=== PATIENT | male | born 1950 | race Caucasian/White ===

== ENCOUNTER 2019-02-18 15:39 | Emergency (ER) | payer MEDICARE ==
[2019-02-18 16:09] VITALS: O2SAT 98
--- NOTE | 2019-02-18 16:44 | ERPHSYRPT ---
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 pt noticed increasing redness of his bilat lower ext over last 2 days. he denies fevers. Timing/Duration: day(s) (2 days for bilat ant tibial redness), week(s) (4 for swelling) Quality: burning Severity: mild Location: extremities (bilat lower) Possible Causes: other (dry cracking skin) Associated Symptoms: change in skin texture, other (redness) Allergies/Adverse Reactions: Penicillins Adverse Reaction (Verified 02/18/19 16:11) Home Medications: Aspirin EC 325 mg [Ecotrin 325 MG] 325 mg PO DAILY 02/18/19 [History] Metoprolol Tartrate 50 mg [Lopressor 50 MG] 50 mg PO BID 02/18/19 [History ] PANTOPRAZOLE 40 mg Tablet [Protonix 40MG Tablet] 40 mg PO QAM 02/18/19 [ History] Hx Influenza Vaccination/Date Given: No Hx Pneumococcal Vaccination/Date Given: No - Review of Systems Constitutional: No Symptoms Eyes: No Symptoms Ears, Nose, & Throat: No Symptoms Respiratory: No Symptoms Cardiac: No Symptoms Abdominal/Gastrointestinal: No Symptoms Genitourinary Symptoms: No Symptoms Musculoskeletal: No Symptoms Skin: Cellulitis ( bilat lower ext ) Neurological: No Symptoms Psychological: No Symptoms Endocrine: No Symptoms Hematologic/Lymphatic: No Symptoms Immunological/Allergic: No Symptoms All Other Systems: Reviewed and Negative - Past Medical History Pertinent Past Medical History: Yes Neurological History: No Pertinent History ENT History: No Pertinent History Cardiac History: Hypertension Respiratory History: No Pertinent History Endocrine Medical History: No Pertinent History Musculoskeletal History: No Pertinent History GI Medical History: No Pertinent History History: No Pertinent History Psycho-Social History: No Pertinent History Male Reproductive Disorders: No Pertinent History Other Medical History: [place], Stent x 2 in right le and 1 in left femoral artery - Past Surgical History Past Surgical History: Yes Neuro Surgical History: No Pertinent History Cardiac: Vascular Surgery Respiratory: No Pertinent History Gastrointestinal: No Pertinent History Genitourinary: No Pertinent History Musculoskeletal: No Pertinent History Male Surgical History: No Pertinent History Other Surgical History: stent to tono femoral artery, caroditectomy - Social History Smoking Status: Current every day smoker Patient Lives Alone: No - Nursing Vital Signs Nursing Vital Signs: Initial Vital Signs Temperature 98.5 F 02/18/19 15:56 Pulse Rate 72 02/18/19 15:56 Respiratory Rate 18 02/18/19 15:56 Blood Pressure 212/104 02/18/19 15:56 O2 Sat by Pulse Oximetry 98 02/18/19 15:56 Pain Scale Pain Intensity 4 - Physical Exam General Appearance: no apparent distress, alert, anxiety Eye Exam: PERRL/EOMI, eyes nml inspection Ears, Nose, Throat Exam: normal ENT inspection, moist mucous membranes Neck Exam: normal inspection, non-tender, supple, full range of motion Respiratory Exam: normal breath sounds, lungs clear, airway intact, No chest tenderness, No respiratory distress Cardiovascular Exam: regular rate/rhythm, normal heart sounds, normal peripheral pulses Gastrointestinal/Abdomen Exam: soft, normal bowel sounds, No tenderness, No guarding Rectal Exam: not done Back Exam: normal inspection, normal range of motion, No CVA tenderness, No vertebral tenderness Extremity Exam: normal inspection, normal range of motion, pelvis stable Neurologic Exam: alert, oriented x 3, cooperative, 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 dry cracking skin bilat lower extremities. dopplerable pedal pulses bilat) Lymphatic Exam: No adenopathy SpO2 Interpretation: normal SpO2: 98 O2 Delivery: Room Air - Course Nursing assessment & vital signs reviewed: Yes Ordered Tests: Active Orders 24 hr Category Date Time Status IV Insertion STAT Care 02/18/19 16:44 Active Pulse Oximetry (ED) STAT Care 02/18/19 16:44 Active BLOOD CULTURE Stat Lab 02/18/19 17:05 Received CBC W DIFF Stat Lab 02/18/19 16:40 Completed CMP Stat Lab 02/18/19 16:40 Completed Lactic Acid Stat Lab 02/18/19 16:44 Completed Medication Summary Discontinued Medications Generic Name Dose Route Start Last Admin Trade Name Rika PRN Reason Stop Dose Admin Furosemide 40 mg 02/18/19 18:18 Lasix 40 Mg/4 Ml IV 02/18/19 18:19 STAT ONE Lab/Rad Data: Laboratory Result [facility] 02/18/19 16:40 02/18/19 16:40 Laboratory Results 02/18/19 02/18/19 02/18/19 Range/Units 16:44 16:40 16:40 WBC 5.9 (4.0-10.5) K/mm3 RBC 4.24 (4.1-5.6) M/mm3 Hgb 13.3 (12.5-18.0) gm/dl Hct 40.6 L (42-50) % MCV 95.8 (78-100) fl MCH 31.4 (26-32) pg MCHC 32.8 (32-36) g/dl RDW 14.1 H (11.5-14.0) % Plt Count 127 L (150-450) K/mm3 MPV 11.0 H (6-9.5) fl Gran % 79.4 H (36.0-66.0) % Eos # (Auto) 0.11 (0-0.5) Absolute Lymphs (auto) 0.70 L (1.0-4.6) Absolute Monos (auto) 0.39 (0.0-1.3) Lymphocytes % 11.9 L (24.0-44.0) % Monocytes % 6.6 (0.0-12.0) % Eosinophils % 1.9 (0.00-5.0) % Basophils % 0.2 (0.0-0.4) % Absolute Granulocytes 4.69 (1.4-6.9) Basophils # 0.01 (0-0.4) Sodium 141 (137-145) mmol/L Potassium 4.0 (3.5-5.1) mmol/L Chloride 105 (98-107) mmol/L Carbon Dioxide 24 (22-30) mmol/L Anion Gap 15.7 H (5-15) MEQ/L BUN 12 (9-20) mg/dL Creatinine 1.12 (0.66-1.25) mg/dL Estimated GFR > 60.0 ML/MIN Glucose 155 H (74-106) mg/dL Lactic Acid 1.3 (0.4-2.0) Calcium 8.5 (8.4-10.2) mg/dL Total Bilirubin 1.60 H (0.2-1.3) mg/dL AST 50 (17-59) U/L ALT 44 (0-50) U/L Alkaline Phosphatase 41 (38-126) U/L Serum Total Protein 8.5 H (6.3-8.2) g/dL Albumin 4.0 (3.5-5.0) g/dL - Progress Progress: unchanged Progress Note: 02/18/19 18:43 pt wants to attempt outpt tx. given pt is afebrile, nl wbc, nl lactic acid level i feel this is reasonable. Counseled pt/family regarding: lab results, diagnosis, need for follow-up - Departure Departure Disposition: Home Clinical Impression: Cellulitis Condition: Stable Critical Care Time: No Referrals: JESSEE MONTANEZ [Primary Care Provider] - Additional Instructions: use unscented moisturizing skin lotion to both lower legs from above knee to toes. avoid sores on anterior lower legs. call your primary doctor tomorrow to arrange for further management. return to ED if symptoms Prescriptions: Ciprofloxacin [Cipro 500 MG] 500 mg PO BID #14 tablet Furosemide 20 mg [Lasix 20 mg] 20 mg PO BID #6 tablet
[2019-02-18 17:14] LABS: Absolute Neutrophil Ct (ANC) 4.69 (1.4-6.9); BASOPHIL % 0.2 % (0.0-0.4); Basophil (Absolute #) 0.01 (0-0.4); Eosinophil % 1.9 % (0.00-5.0); Eosinophil (Absolute #) 0.11 (0-0.5); Hematocrit 40.6 % (42-50); Hemoglobin 13.3 gm/dl (12.5-18.0); Lymphocytes % 11.9 % (24.0-44.0); Mean Cell Volume 95.8 fl (78-100); Mean Corpuscular Hemoglobin 31.4 pg (26-32); Mean Corpuscular Hgb Concent. 32.8 g/dl (32-36); Monocyte (Absolute #) 0.39 (0.0-1.3); Monocytes % 6.6 % (0.0-12.0); Neutrophil % 79.4 % (36.0-66.0); Platelet Count 127 K/mm3 (150-450); Red Blood Count 4.24 M/mm3 (4.1-5.6); Red Cell Distribution Width 14.1 % (11.5-14.0); White Blood Count 5.9 K/mm3 (4.0-10.5)
[2019-02-18 17:25] LABS: BLOOD UREA NITROGEN 12 mg/dL (9-20); Creatinine 1 1.12 mg/dL (0.66-1.25); Glucose 155 mg/dL (74-106); SODIUM 141 mmol/L (137-145)
[2019-02-18 17:26] LABS: ALKALINE PHOSPHATASE 41 U/L (38-126); ANION GAP 15.7 MEQ/L (5-15); CHLORIDE 105 mmol/L (98-107); Calcium 8.5 mg/dL (8.4-10.2); Carbon Dioxide 24 mmol/L (22-30); SGOT/AST 50 U/L (17-59); SGPT/ALT 44 U/L (0-50); Total Protein 8.5 g/dL (6.3-8.2)
[2019-02-18] MEDS ORDERED: Lasix 40 MG/4 ML IV ONE (18:18)
[2019-02-18] MEDS ORDERED: LEVOFLOXACIN 750MG/150ML D5W 750 MG/150 ML BAG IV STA (18:31)
[2019-02-18] MEDS ORDERED: LEVOFLOXACIN 750MG/150ML D5W 750 MG/150 ML BAG IV ONE (18:47)
[2019-02-18] MEDS ORDERED: Lasix 40 MG/4 ML ONE (18:47)
[2019-02-18] MEDS ORDERED: Catapres 0.1 MG ONE (20:03)
[2019-02-18] MEDS ORDERED: Catapres 0.1 MG PO ONE (20:05)
[2019-02-18 20:11] VITALS: PULSE 69
[2019-02-18 21:10] VITALS: BP 177/79
== END 2019-02-18 21:13 | disposition home or self-care (01) ==
LOC: ED 15:39
DX: L03.115 Cellulitis of right lower limb (principal); L03.116 Cellulitis of left lower limb; I10 Essential (primary) hypertension; Z79.899 Other long term (current) drug therapy
CPT/HCPCS: 36000; 36415; 80053; 83605; 85025; 87040; 94760; 96365; 96374; 99284; J1940; J1956; A9270-GY

== ENCOUNTER 2019-03-10 14:23 | Inpatient (IN) | payer MEDICARE ==
[2019-03-10] MEDS ORDERED: Zofran 4 MG/2 ML VIAL IV ONE (15:05)
--- NOTE | 2019-03-10 15:05 | ERPHSYRPT ---
- History of Present Illness Time Seen by Provider: 03/10/19 14:45 Source: patient Exam Limitations: no limitations Patient Subjective Stated Complaint: pt reports he was seen one week ago and treated for sores on his bilat lower legs at this facility. pt reports that his swelling has increased, reports that his legs are both draining. pt denies pain at this time. pt brother outside of the room, reports to this nurse after triage that pt has complained of chest pain as well today. Triage Nursing Assessment: pt is aox3, pupils perrl, afebrile, pt appears in no distress at this time, resps easy and non labored, radial pulses strong and equal, pt bilat lower extremities are noted to be reddned large open areas to bilat extremities dorsal and volar aspects with yellow colored crusts are present and actively draining. a strong, foul odor noted. poor hygeine noted, pt socks present upon arrival which were soiled with drainage and adhered to pt skin. Physician History: 68 y/o noncompliant white male with h/o htn and chronic bilateral lower ext cellulitis/eschar. pt took his 325mg asa and metoprolol today. he states his cellulitis worse. pt was seen here 02/18/19 for same issue. pt had cp yesterday he attributes to indigestion and no cp today. pt denies fever. Timing/Duration: worse, other (chronic for several weeks bilat leg cellulitis and eschar.) Quality: burning Severity: moderate Location: extremities (bilat lower legs) Possible Causes: no cause identified Associated Symptoms: change in skin texture Allergies/Adverse Reactions: Penicillins Adverse Reaction (Verified 02/18/19 16:11) Home Medications: Aspirin EC 325 mg [Ecotrin 325 MG] 325 mg PO DAILY 02/18/19 [History] Metoprolol Tartrate 50 mg [Lopressor 50 MG] 50 mg PO BID 02/18/19 [History ] PANTOPRAZOLE 40 mg Tablet [Protonix 40MG Tablet] 40 mg PO QAM 02/18/19 [ History] Hx Tetanus, Diphtheria Vaccination/Date Given: (unk) Hx Influenza Vaccination/Date Given: No Hx Pneumococcal Vaccination/Date Given: No Immunizations Up to Date: Yes - Review of Systems Constitutional: No Symptoms Eyes: No Symptoms Ears, Nose, & Throat: No Symptoms Respiratory: No Symptoms Cardiac: Chest Pain (mild yesterday, brief and resolved) Abdominal/Gastrointestinal: No Symptoms Genitourinary Symptoms: No Symptoms Musculoskeletal: No Symptoms Skin: Cellulitis ( with bilat ant tibial post lower leg eschar. very dry cracking skin of lower legs) Neurological: No Symptoms Psychological: No Symptoms Endocrine: No Symptoms Hematologic/Lymphatic: No Symptoms Immunological/Allergic: No Symptoms All Other Systems: Reviewed and Negative - Past Medical History Pertinent Past Medical History: Yes Neurological History: No Pertinent History ENT History: No Pertinent History Cardiac History: Hypertension Respiratory History: No Pertinent History Endocrine Medical History: No Pertinent History Musculoskeletal History: No Pertinent History GI Medical History: No Pertinent History History: No Pertinent History Psycho-Social History: No Pertinent History Male Reproductive Disorders: No Pertinent History Other Medical History: [place], Stent x 2 in right le and 1 in left femoral artery - Past Surgical History Past Surgical History: Yes Neuro Surgical History: No Pertinent History Cardiac: Vascular Surgery Respiratory: No Pertinent History Gastrointestinal: No Pertinent History Genitourinary: No Pertinent History Musculoskeletal: No Pertinent History Male Surgical History: No Pertinent History Other Surgical History: stent to tono femoral artery, caroditectomy - Social History Smoking Status: Current every day smoker How long have you smoked: 40 Drug Use: none Patient Lives Alone: No - Nursing Vital Signs Nursing Vital Signs: Initial Vital Signs Temperature 98.3 F 03/10/19 14:30 Pulse Rate 71 03/10/19 14:30 Respiratory Rate 20 03/10/19 14:30 Blood Pressure 213/99 03/10/19 14:30 O2 Sat by Pulse Oximetry 99 03/10/19 14:30 Pain Scale Pain Intensity 0 - Physical Exam General Appearance: no apparent distress, alert Eye Exam: PERRL/EOMI, eyes nml inspection Ears, Nose, Throat Exam: normal ENT inspection, moist mucous membranes Neck Exam: normal inspection, non-tender, supple, full range of motion Respiratory Exam: normal breath sounds, lungs clear, airway intact, No chest tenderness, No respiratory distress Cardiovascular Exam: regular rate/rhythm, normal heart sounds, normal peripheral pulses Gastrointestinal/Abdomen Exam: soft, normal bowel sounds, No tenderness Rectal Exam: not done Back Exam: normal inspection, normal range of motion, vertebral tenderness, No CVA tenderness Extremity Exam: normal range of motion, pelvis stable, inflammation, other ( mild tenderness skin bilat ant tibias, greenish drainage and odor. 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 Skin Exam: other (see above) Lymphatic Exam: No adenopathy SpO2 Interpretation: normal SpO2: 99 O2 Delivery: Room Air - Course Nursing assessment & vital signs reviewed: Yes EKG Interpreted by Me: RATE (69), Sinus Rhythm, NORMAL AXIS, NORMAL INTERVALS, NORMAL QRS, Non-specific ST Changes, Other (no comparison) Ordered Tests: Active Orders 24 hr Category Date Time Status EKG-ER Only STAT Care 03/10/19 15:09 Active IV Insertion STAT Care 03/10/19 15:22 Active BLOOD CULTURE Stat Lab 03/10/19 15:10 Received CBC W DIFF Stat Lab 03/10/19 15:05 Completed CMP Stat Lab 03/10/19 15:10 Completed CULTURE,WOUND Stat Lab 03/10/19 15:10 Received Lactic Acid Stat Lab 03/10/19 15:10 Completed TROPONIN Q3H Lab 03/10/19 15:30 Completed TROPONIN Q3H Lab 03/10/19 18:15 Ordered TROPONIN Q3H Lab 03/10/19 21:15 Ordered TROPONIN Q3H Lab 03/11/19 00:15 Ordered TROPONIN Q3H Lab 03/11/19 03:15 Ordered Transfer Order Routine Transfer 03/10/19 Ordered Medication Summary Generic Name Dose Route Start Last Admin Trade Name Freq PRN Reason Stop Dose Admin Sodium Chloride 1,000 mls @ 50 mls/hr 03/10/19 15:15 03/10/19 15:41 Sodium Chloride 0.9% 1000 Ml IV 04/09/19 15:14 50 mls/hr .Q20H VERNA Administration Ceftazidime 2 g/ Dextrose 100 mls @ 200 mls/hr 03/10/19 15:30 03/10/19 15:52 IV 04/09/19 15:29 200 mls/hr Q8H VERNA Administration Discontinued Medications Generic Name Dose Route Start Last Admin Trade Name Freq PRN Reason Stop Dose Admin Enalaprilat 1.25 mg 03/10/19 15:10 03/10/19 15:42 Vasotec I.V. 2.5 Mg IV 03/10/19 15:11 1.25 mg STAT ONE Administration Enalaprilat Confirm 03/10/19 15:36 Vasotec I.V. 2.5 Mg Administered 03/10/19 15:37 Dose 2.5 mg IV .STK-MED ONE Ondansetron HCl 4 mg 03/10/19 15:05 03/10/19 15:42 Zofran 4 Mg/2 Ml Vial IV 03/10/19 15:06 4 mg STAT ONE Administration Ondansetron HCl Confirm 03/10/19 15:35 Zofran 4 Mg/2 Ml Vial Administered 03/10/19 15:36 Dose 4 mg .ROUTE .STK-MED ONE Lab/Rad Data: Laboratory Result Diagrams 03/10/19 15:05 03/10/19 15:10 Laboratory Results 03/10/19 03/10/19 03/10/19 Range/Units 15:30 15:10 15:10 WBC (4.0-10.5) K/mm3 RBC (4.1-5.6) M/mm3 Hgb (12.5-18.0) gm/dl Hct (42-50) % MCV (78-100) fl MCH (26-32) pg MCHC (32-36) g/dl RDW (11.5-14.0) % Plt Count (150-450) K/mm3 MPV (6-9.5) fl Gran % (36.0-66.0) % Eos # (Auto) (0-0.5) Absolute Lymphs (auto) (1.0-4.6) Absolute Monos (auto) (0.0-1.3) Lymphocytes % (24.0-44.0) % Monocytes % (0.0-12.0) % Eosinophils % (0.00-5.0) % Basophils % (0.0-0.4) % Absolute Granulocytes (1.4-6.9) Basophils # (0-0.4) Sodium 136 L (137-145) mmol/L Potassium 5.0 (3.5-5.1) mmol/L Chloride 94 L (98-107) mmol/L Carbon Dioxide 32 H (22-30) mmol/L Anion Gap 13.9 (5-15) MEQ/L BUN 9 (9-20) mg/dL Creatinine 1.00 (0.66-1.25) mg/dL Estimated GFR > 60.0 ML/MIN Glucose 109 H (74-106) mg/dL Lactic Acid 1.0 (0.4-2.0) Calcium 9.7 (8.4-10.2) mg/dL Total Bilirubin 0.70 (0.2-1.3) mg/dL AST 24 (17-59) U/L ALT 18 (0-50) U/L Alkaline Phosphatase 99 (38-126) U/L Troponin I < 0.012 (0.000-0.034) ng/mL Serum Total Protein 8.6 H (6.3-8.2) g/dL Albumin 4.6 (3.5-5.0) g/dL 03/10/19 Range/Units 15:05 WBC 7.2 (4.0-10.5) K/mm3 RBC 4.93 (4.1-5.6) M/mm3 Hgb 15.2 (12.5-18.0) gm/dl Hct 44.3 (42-50) % MCV 89.9 (78-100) fl MCH 30.8 (26-32) pg MCHC 34.3 (32-36) g/dl RDW 14.4 H (11.5-14.0) % Plt Count 237 (150-450) K/mm3 MPV 10.4 H (6-9.5) fl Gran % 63.8 (36.0-66.0) % Eos # (Auto) 0.07 (0-0.5) Absolute Lymphs (auto) 1.80 (1.0-4.6) Absolute Monos (auto) 0.69 (0.0-1.3) Lymphocytes % 25.0 (24.0-44.0) % Monocytes % 9.6 (0.0-12.0) % Eosinophils % 1.0 (0.00-5.0) % Basophils % 0.6 (0.0-0.4) % Absolute Granulocytes 4.60 (1.4-6.9) Basophils # 0.04 (0-0.4) Sodium (137-145) mmol/L Potassium (3.5-5.1) mmol/L Chloride (98-107) mmol/L Carbon Dioxide (22-30) mmol/L Anion Gap (5-15) MEQ/L BUN (9-20) mg/dL Creatinine (0.66-1.25) mg/dL Estimated GFR ML/MIN Glucose (74-106) mg/dL Lactic Acid (0.4-2.0) Calcium (8.4-10.2) mg/dL Total Bilirubin (0.2-1.3) mg/dL AST (17-59) U/L ALT (0-50) U/L Alkaline Phosphatase (38-126) U/L Troponin I (0.000-0.034) ng/mL Serum Total Protein (6.3-8.2) g/dL Albumin (3.5-5.0) g/dL - Progress Progress: unchanged, pain not gone completely Progress Note: 03/10/19 16:[address] floers who is covering no doctor pts. i reviewed pt hx, labs, clinical condition. he accepts pt for admission Counseled pt/family regarding: lab results, diagnosis, smoking cessation - Departure Departure Disposition: In-patient Admission Clinical Impression: Hypertensive urgency, Cellulitis Condition: Fair Critical Care Time: Yes Critical Care Time(excluding separately billable procedures): Critical 30-74 mins Referrals: JESSEE MONTANEZ [Primary Care Provider] -
[2019-03-10] MEDS ORDERED: VASOTEC I.V. 2.5 MG IV ONE ×2 (15:10→15:36)
[2019-03-10] MEDS ORDERED: Sodium Chloride 0.9% 1000 ML 1,000 ML IV SCH (15:15)
[2019-03-10] MEDS ORDERED: Fortaz/Tazicef 1 GM** 2 G in D5w 100ML Mini Bag 100 ML 100 ML IV SCH (15:30)
[2019-03-10] MEDS ORDERED: Zofran 4 MG/2 ML VIAL ONE (15:35)
[2019-03-10 15:36] LABS: BASOPHIL % 0.6 % (0.0-0.4); Basophil (Absolute #) 0.04 (0-0.4); Eosinophil (Absolute #) 0.07 (0-0.5); Hematocrit 44.3 % (42-50); Hemoglobin 15.2 gm/dl (12.5-18.0); Mean Cell Volume 89.9 fl (78-100); Mean Corpuscular Hemoglobin 30.8 pg (26-32); Mean Corpuscular Hgb Concent. 34.3 g/dl (32-36); Mean Platelet Volume 10.4 fl (6-9.5); Monocyte (Absolute #) 0.69 (0.0-1.3); Monocytes % 9.6 % (0.0-12.0); Neutrophil % 63.8 % (36.0-66.0); Platelet Count 237 K/mm3 (150-450); Red Blood Count 4.93 M/mm3 (4.1-5.6); Red Cell Distribution Width 14.4 % (11.5-14.0); White Blood Count 7.2 K/mm3 (4.0-10.5)
[2019-03-10] MEDS ORDERED: Sodium Chloride 0.9% 1000 ML 1,000 ML ONE (15:36)
[2019-03-10 15:48] LABS: ALBUMIN 4.6 g/dL (3.5-5.0); ALKALINE PHOSPHATASE 99 U/L (38-126); ANION GAP 13.9 MEQ/L (5-15); BLOOD UREA NITROGEN 9 mg/dL (9-20); CHLORIDE 94 mmol/L (98-107); Calcium 9.7 mg/dL (8.4-10.2); Carbon Dioxide 32 mmol/L (22-30); Glucose 109 mg/dL (74-106); SGOT/AST 24 U/L (17-59); SGPT/ALT 18 U/L (0-50); SODIUM 136 mmol/L (137-145); Total Protein 8.6 g/dL (6.3-8.2)
[2019-03-10] MEDS ORDERED: VASOTEC I.V. 2.5 MG IV PRN (17:18)
[2019-03-10] MEDS ORDERED: TYLENOL 325 MG PO PRN (17:18)
[2019-03-10] MEDS ORDERED: Zofran 4 MG/2 ML VIAL IV PRN (17:18)
[2019-03-10] MEDS: Fortaz/Tazicef 1 GM** 1 G in Dextrose 5%/Water IV Soln. 100ML PLUS BAG 100 ML IV SCH (21:06)
[2019-03-10] MEDS ORDERED: Lopressor 50 MG PO SCH (22:00)
[2019-03-11 04:06] LABS: BASOPHIL % 0.3 % (0.0-0.4); Basophil (Absolute #) 0.03 (0-0.4); Eosinophil % 2.4 % (0.00-5.0); Eosinophil (Absolute #) 0.21 (0-0.5); Hematocrit 39.8 % (42-50); Hemoglobin 13.8 gm/dl (12.5-18.0); Lymphocyte (Absolute #) 2.71 (1.0-4.6); Lymphocytes % 31.2 % (24.0-44.0); Mean Cell Volume 90.9 fl (78-100); Mean Corpuscular Hemoglobin 31.5 pg (26-32); Mean Corpuscular Hgb Concent. 34.7 g/dl (32-36); Mean Platelet Volume 10.6 fl (6-9.5); Monocyte (Absolute #) 0.94 (0.0-1.3); Monocytes % 10.8 % (0.0-12.0); Neutrophil % 55.3 % (36.0-66.0); Platelet Count 225 K/mm3 (150-450); Red Blood Count 4.38 M/mm3 (4.1-5.6); Red Cell Distribution Width 14.5 % (11.5-14.0); White Blood Count 8.7 K/mm3 (4.0-10.5)
[2019-03-11 04:07] LABS: ALBUMIN 3.9 g/dL (3.5-5.0); ALKALINE PHOSPHATASE 82 U/L (38-126); ANION GAP 13.6 MEQ/L (5-15); BLOOD UREA NITROGEN 11 mg/dL (9-20); CHLORIDE 98 mmol/L (98-107); Calcium 9.1 mg/dL (8.4-10.2); Carbon Dioxide 27 mmol/L (22-30); Creatinine 1 0.94 mg/dL (0.66-1.25); Glucose 154 mg/dL (74-106); Potassium 4.4 mmol/L (3.5-5.1); SGOT/AST 21 U/L (17-59); SGPT/ALT 15 U/L (0-50); SODIUM 134 mmol/L (137-145); Total Protein 7.3 g/dL (6.3-8.2)
[2019-03-11] MEDS: Fortaz/Tazicef 1 GM** 1 G in Dextrose 5%/Water IV Soln. 100ML PLUS BAG 100 ML IV SCH ×3 (06:00→21:06)
[2019-03-11] MEDS: Sodium Chloride 0.9% 1000 ML 1,000 ML IV SCH (07:23)
[2019-03-11] MEDS: Lopressor 25MG Tab PO SCH ×2 (09:25→21:06)
[2019-03-11] MEDS: Ecotrin 325 MG PO SCH (09:25)
[2019-03-11] MEDS: Protonix 40MG Tablet PO SCH (09:25)
[2019-03-11] MEDS ORDERED: Zestril 10 MG PO SCH (10:00)
--- NOTE | 2019-03-11 12:52 | PCM.HP ---
History of Present Illness - Chief Complaint Chief Complaint: swelling of legs and high blood pressure for few weeks History of Present Illness: is a 68 year noncompliant white male with h/o htn and chronic bilateral lower ext cellulitis/eschar. pt took his 325mg asa and metoprolol today. he states his cellulitis worse. pt was seen here 02/18/19 for same issue. pt had cp yesterday he attributes to indigestion and no cp today. pt denies fever. Timing/Duration: worse, other (chronic for several weeks bilat leg cellulitis and eschar.) Quality: burning Severity: moderate Location: extremities (bilat lower legs) Possible Causes: no cause identified Associated Symptoms: change in skin texture - Review of Systems Constitutional: No Fever, No Chills Eyes: No Symptoms Ears, Nose, & Throat: No Symptoms Respiratory: Short Of Breath, No Cough Cardiac: Edema, Orthopnea, PND, No Chest Pain, No Syncope Abdominal/Gastrointestinal: No Abdominal Pain, No Nausea, No Vomiting, No Diarrhea Genitourinary Symptoms: No Dysuria Musculoskeletal: No Back Pain, No Neck Pain Skin: No Rash Neurological: No Dizziness, No Focal Weakness, No Sensory Changes Psychological: No Symptoms Endocrine: No Symptoms Hematologic/Lymphatic: No Symptoms Immunological/Allergic: No Symptoms Medications & Allergies Home Medications: Home Medication List Aspirin EC 325 mg [Ecotrin 325 MG] 325 mg PO DAILY 02/18/19 [History Confirmed 03/10/19] Metoprolol Tartrate 50 mg [Lopressor 50 MG] 50 mg PO BID 02/18/19 [ History Confirmed 03/10/19] PANTOPRAZOLE 40 mg Tablet [Protonix 40MG Tablet] 40 mg PO QAM 02/18/19 [ History Confirmed 03/10/19] Allergies/Adverse Reactions: Allergies Allergy/AdvReac Type Severity Reaction Status Date / Time Penicillins AdvReac Verified 02/18/19 16:11 - Past Medical History Past Medical History: Yes Neurological History: No Pertinent History ENT History: No Pertinent History Cardiac History: Hypertension Respiratory History: No Pertinent History Endocrine Medical History: No Pertinent History Musculoskelatal History: No Pertinent History GI Medical History: No Pertinent History History: No Pertinent History Pyscho-Social History: No Pertinent History Male Reproductive Disorders: No Pertinent History Comment: MT, Stent x 2 in right le and 1 in left femoral artery - Past Surgical History Past Surgical History: Yes Neuro Surgical History: No Pertinent History Cardiac History: Vascular Surgery Respiratory Surgery: No Pertinent History GI Surgical History: No Pertinent History Genitourinary Surgical Hx: No Pertinent History Musculskeletal Surgical Hx: No Pertinent History Male Surgical History: No Pertinent History Other Surgical History: stent to tono femoral artery, caroditectomy - Social History Smoking Status: Current some day smoker How long have you smoked: 40 Alcohol: Daily Drug Use: none - Physical Exam Vital Signs: Vital Signs - 24 hr Temp Pulse Resp BP Pulse Ox 03/11/19 11:00 98.2 F 54 L 18 167/70 93 L 03/11/19 07:03 99 03/11/19 07:00 97.9 F 57 L 18 166/65 99 03/11/19 03:04 97.7 F 67 20 151/67 96 03/10/19 23:54 97.9 F 61 20 155/70 97 03/10/19 20:00 96 03/10/19 19:50 96 03/10/19 19:47 98.8 F 83 19 131/60 96 03/10/19 17:28 98.6 F 80 22 176/88 97 03/10/19 17:23 98.6 F 78 18 176/88 98 03/10/19 17:02 65 20 184/87 99 03/10/19 17:00 99 03/10/19 16:50 20 174/87 03/10/19 14:30 98.3 F 71 20 213/99 99 Oxygen-Last 24 hours Oxygen Flowrate (L/min)-RT 2 General Appearance: no apparent distress, alert Neurologic Exam: alert, oriented x 3, cooperative, normal mood/affect, nml cerebellar function, nml station & gait, sensation nml, No motor deficits Eye Exam: PERRL/EOMI, eyes nml inspection Ears, Nose, Throat Exam: normal ENT inspection, TMs normal, pharynx normal, moist mucous membranes Neck Exam: normal inspection, non-tender, supple, full range of motion Respiratory Exam: diminished breath sounds, rhonchi, No respiratory distress Cardiovascular Exam: regular rate/rhythm, normal heart sounds, normal peripheral pulses Gastrointestinal/Abdomen Exam: soft, normal bowel sounds, No tenderness, No mass Back Exam: normal inspection, normal range of motion, No CVA tenderness, No vertebral tenderness Extremity Exam: normal inspection, normal range of motion, pelvis stable, inflammation, pedal edema, swelling Skin Exam: normal color, warm, dry, No rash Wound Assessment: Skin/Wound Assessment Wound/Incision Assessment Start: 03/10/19 17: 19 Text: Status: Active Freq: Q6H Protocol: Document 03/11/19 12:00 CECILIA (Rec: 03/11/19 12:03 [id number]) Wound Photo Photo Taken Yes Comment: Placed on chart per day shift. Lymphatic Exam: No adenopathy Results - Labs Lab/Micro Results: Lab Results-Last 24 Hours 03/10/19 03/10/19 03/10/19 Range/Units 15:05 15:10 15:10 WBC 7.2 (4.0-10.5) K/mm3 RBC 4.93 (4.1-5.6) M/mm3 Hgb 15.2 (12.5-18.0) gm/dl Hct 44.3 (42-50) % MCV 89.9 (78-100) fl MCH 30.8 (26-32) pg MCHC 34.3 (32-36) g/dl RDW 14.4 H (11.5-14.0) % Plt Count 237 (150-450) K/mm3 MPV 10.4 H (6-9.5) fl Gran % 63.8 (36.0-66.0) % Eos # (Auto) 0.07 (0-0.5) Absolute Lymphs (auto) 1.80 (1.0-4.6) Absolute Monos (auto) 0.69 (0.0-1.3) Lymphocytes % 25.0 (24.0-44.0) % Monocytes % 9.6 (0.0-12.0) % Eosinophils % 1.0 (0.00-5.0) % Basophils % 0.6 (0.0-0.4) % Absolute Granulocytes 4.60 (1.4-6.9) Basophils # 0.04 (0-0.4) Sodium 136 L (137-145) mmol/L Potassium 5.0 (3.5-5.1) mmol/L Chloride 94 L (98-107) mmol/L Carbon Dioxide 32 H (22-30) mmol/L Anion Gap 13.9 (5-15) MEQ/L BUN 9 (9-20) mg/dL Creatinine 1.00 (0.66-1.25) mg/dL Estimated GFR > 60.0 ML/MIN Glucose 109 H (74-106) mg/dL Lactic Acid 1.0 (0.4-2.0) Calcium 9.7 (8.4-10.2) mg/dL Total Bilirubin 0.70 (0.2-1.3) mg/dL AST 24 (17-59) U/L ALT 18 (0-50) U/L Alkaline Phosphatase 99 (38-126) U/L Troponin I (0.000-0.034) ng/mL Serum Total Protein 8.6 H (6.3-8.2) g/dL Albumin 4.6 (3.5-5.0) g/dL 03/10/19 03/10/19 03/10/19 Range/Units 15:30 18:34 21:15 WBC (4.0-10.5) K/mm3 RBC (4.1-5.6) M/mm3 Hgb (12.5-18.0) gm/dl Hct (42-50) % MCV (78-100) fl MCH (26-32) pg MCHC (32-36) g/dl RDW (11.5-14.0) % Plt Count (150-450) K/mm3 MPV (6-9.5) fl Gran % (36.0-66.0) % Eos # (Auto) (0-0.5) Absolute Lymphs (auto) (1.0-4.6) Absolute Monos (auto) (0.0-1.3) Lymphocytes % (24.0-44.0) % Monocytes % (0.0-12.0) % Eosinophils % (0.00-5.0) % Basophils % (0.0-0.4) % Absolute Granulocytes (1.4-6.9) Basophils # (0-0.4) Sodium (137-145) mmol/L Potassium (3.5-5.1) mmol/L Chloride (98-107) mmol/L Carbon Dioxide (22-30) mmol/L Anion Gap (5-15) MEQ/L BUN (9-20) mg/dL Creatinine (0.66-1.25) mg/dL Estimated GFR ML/MIN Glucose (74-106) mg/dL Lactic Acid (0.4-2.0) Calcium (8.4-10.2) mg/dL Total Bilirubin (0.2-1.3) mg/dL AST (17-59) U/L ALT (0-50) U/L Alkaline Phosphatase (38-126) U/L Troponin I < 0.012 < 0.012 < 0.012 (0.000-0.034) ng/mL Serum Total Protein (6.3-8.2) g/dL Albumin (3.5-5.0) g/dL 03/11/19 03/11/19 03/11/19 Range/Units 00:15 03:48 03:48 WBC 8.7 (4.0-10.5) K/mm3 RBC 4.38 (4.1-5.6) M/mm3 Hgb 13.8 (12.5-18.0) gm/dl Hct 39.8 L (42-50) % MCV 90.9 (78-100) fl MCH 31.5 (26-32) pg MCHC 34.7 (32-36) g/dl RDW 14.5 H (11.5-14.0) % Plt Count 225 (150-450) K/mm3 MPV 10.6 H (6-9.5) fl Gran % 55.3 (36.0-66.0) % Eos # (Auto) 0.21 (0-0.5) Absolute Lymphs (auto) 2.71 (1.0-4.6) Absolute Monos (auto) 0.94 (0.0-1.3) Lymphocytes % 31.2 (24.0-44.0) % Monocytes % 10.8 (0.0-12.0) % Eosinophils % 2.4 (0.00-5.0) % Basophils % 0.3 (0.0-0.4) % Absolute Granulocytes 4.80 (1.4-6.9) Basophils # 0.03 (0-0.4) Sodium (137-145) mmol/L Potassium (3.5-5.1) mmol/L Chloride (98-107) mmol/L Carbon Dioxide (22-30) mmol/L Anion Gap (5-15) MEQ/L BUN (9-20) mg/dL Creatinine (0.66-1.25) mg/dL Estimated GFR ML/MIN Glucose (74-106) mg/dL Lactic Acid (0.4-2.0) Calcium (8.4-10.2) mg/dL Total Bilirubin (0.2-1.3) mg/dL AST (17-59) U/L ALT (0-50) U/L Alkaline Phosphatase (38-126) U/L Troponin I < 0.012 < 0.012 (0.000-0.034) ng/mL Serum Total Protein (6.3-8.2) g/dL Albumin (3.5-5.0) g/dL 03/11/19 Range/Units 03:48 WBC (4.0-10.5) K/mm3 RBC (4.1-5.6) M/mm3 Hgb (12.5-18.0) gm/dl Hct (42-50) % MCV (78-100) fl MCH (26-32) pg MCHC (32-36) g/dl RDW (11.5-14.0) % Plt Count (150-450) K/mm3 MPV (6-9.5) fl Gran % (36.0-66.0) % Eos # (Auto) (0-0.5) Absolute Lymphs (auto) (1.0-4.6) Absolute Monos (auto) (0.0-1.3) Lymphocytes % (24.0-44.0) % Monocytes % (0.0-12.0) % Eosinophils % (0.00-5.0) % Basophils % (0.0-0.4) % Absolute Granulocytes (1.4-6.9) Basophils # (0-0.4) Sodium 134 L (137-145) mmol/L Potassium 4.4 (3.5-5.1) mmol/L Chloride 98 (98-107) mmol/L Carbon Dioxide 27 (22-30) mmol/L Anion Gap 13.6 (5-15) MEQ/L BUN 11 (9-20) mg/dL Creatinine 0.94 (0.66-1.25) mg/dL Estimated GFR > 60.0 ML/MIN Glucose 154 H (74-106) mg/dL Lactic Acid (0.4-2.0) Calcium 9.1 (8.4-10.2) mg/dL Total Bilirubin 0.40 (0.2-1.3) mg/dL AST 21 (17-59) U/L ALT 15 (0-50) U/L Alkaline Phosphatase 82 (38-126) U/L Troponin I (0.000-0.034) ng/mL Serum Total Protein 7.3 (6.3-8.2) g/dL Albumin 3.9 (3.5-5.0) g/dL Assessment/Plan (1) Cellulitis Current Visit: Yes Status: Acute Qualifiers: Site of cellulitis: extremity Site of cellulitis of extremity: lower extremity Laterality: unspecified laterality Qualified Code(s): L03.119 - Cellulitis of unspecified part of limb Code(s): L03.90 - CELLULITIS, UNSPECIFIED (2) Hypertensive urgency Current Visit: Yes Status: Acute Assessment & Plan: Last Vital Signs Temp 98.2 F 03/11/19 11:00 Pulse 54 L 03/11/19 11:00 Resp 18 03/11/19 11:00 BP 167/70 03/11/19 11:00 Pulse Ox 93 L 03/11/19 11:00 Allergies Penicillins Adverse Reaction (Verified 02/18/19 16:11) Active Medications Acetaminophen (Tylenol 325 Mg) 650 mg PO Q4H PRN PRN PRN Reason: PAIN, FEVER, HEADACHE Stop: 04/09/19 17:17 Aspirin (Ecotrin 325 Mg) 325 mg PO DAILY [facility] Stop: 04/10/19 09:59 Last Admin: 03/11/19 09:25 Dose: 325 mg Enalaprilat (Vasotec I.V. 2.5 Mg) 1.25 mg IV Q6H/PRN PRN PRN Reason: ELEVATED BLOOD PRESSURE Stop: 04/09/19 17:17 Sodium Chloride (Sodium Chloride 0.9% 1000 Ml) 1,000 mls @ 50 mls/hr IV .Q20H [facility] Stop: 04/09/19 17:17 Last Admin: 03/11/19 07:23 Dose: 50 mls/hr Ceftazidime 1 g/ Dextrose 100 mls @ 200 mls/hr IV Q8HT [facility] Stop: 04/09/19 21:59 Last Admin: 03/11/19 06:00 Dose: 200 mls/hr Lisinopril (Zestril 10 Mg) 10 mg PO DAILY [facility] Stop: 04/10/19 09:59 Last Admin: 03/11/19 09:25 Dose: 10 mg Metoprolol Tartrate (Lopressor 25mg Tab) 25 mg PO BID [facility] Stop: 04/10/19 09:59 Last Admin: 03/11/19 09:25 Dose: 25 mg Ondansetron HCl (Zofran 4 Mg/2 Ml Vial) 4 mg IV Q6H PRN PRN PRN Reason: NAUSEA/VOMITING Stop: 04/09/19 17:17 Pantoprazole Sodium (Protonix 40mg Tablet) 40 mg PO QAM [facility] Stop: 04/10/19 09:59 Last Admin: 03/11/19 09:25 Dose: 40 mg Intake & Output 03/11/19 03/12/19 11:59 11:59 Intake Total 1916 Output Total 2350 Balance -434 Weight 82 kg Orders 03/11/19 10:00 Aspirin EC 325 mg [Ecotrin 325 MG] 325 mg PO DAILY Lisinopril 10 mg [Zestril 10 MG] 10 mg PO DAILY Metoprolol Tartrate 25 mg [Lopressor 25MG Tab] 25 mg PO BID PANTOPRAZOLE 40 mg Tablet [Protonix 40MG Tablet] 40 mg PO QAM Lab Tests 03/10/19 03/10/19 03/10/19 15:05 15:10 15:10 WBC 7.2 RBC 4.93 Hgb 15.2 Hct 44.3 MCV 89.9 MCH 30.8 MCHC 34.3 RDW 14.4 H Plt Count 237 MPV 10.4 H Gran % 63.8 Eos # (Auto) 0.07 Absolute Lymphs (auto) 1.80 Absolute Monos (auto) 0.69 Lymphocytes % 25.0 Monocytes % 9.6 Eosinophils % 1.0 Basophils % 0.6 Absolute Granulocytes 4.60 Basophils # 0.04 Sodium 136 L Potassium 5.0 Chloride 94 L Carbon Dioxide 32 H Anion Gap 13.9 BUN 9 Creatinine 1.00 Estimated GFR > 60.0 Glucose 109 H Lactic Acid 1.0 Calcium 9.7 Total Bilirubin 0.70 AST 24 ALT 18 Alkaline Phosphatase 99 Troponin I Serum Total Protein 8.6 H Albumin 4.6 03/10/19 03/10/19 03/10/19 15:30 18:34 21:15 WBC RBC Hgb Hct MCV MCH MCHC RDW Plt Count MPV Gran % Eos # (Auto) Absolute Lymphs (auto) Absolute Monos (auto) Lymphocytes % Monocytes % Eosinophils % Basophils % Absolute Granulocytes Basophils # Sodium Potassium Chloride Carbon Dioxide Anion Gap BUN Creatinine Estimated GFR Glucose Lactic Acid Calcium Total Bilirubin AST ALT Alkaline Phosphatase Troponin I < 0.012 < 0.012 < 0.012 Serum Total Protein Albumin 03/11/19 03/11/19 03/11/19 00:15 03:48 03:48 WBC 8.7 RBC 4.38 Hgb 13.8 Hct 39.8 L MCV 90.9 MCH 31.5 MCHC 34.7 RDW 14.5 H Plt Count 225 MPV 10.6 H Gran % 55.3 Eos # (Auto) 0.21 Absolute Lymphs (auto) 2.71 Absolute Monos (auto) 0.94 Lymphocytes % 31.2 Monocytes % 10.8 Eosinophils % 2.4 Basophils % 0.3 Absolute Granulocytes 4.80 Basophils # 0.03 Sodium Potassium Chloride Carbon Dioxide Anion Gap BUN Creatinine Estimated GFR Glucose Lactic Acid Calcium Total Bilirubin AST ALT Alkaline Phosphatase Troponin I < 0.012 < 0.012 Serum Total Protein Albumin 03/11/19 03:48 WBC RBC Hgb Hct MCV MCH MCHC RDW Plt Count MPV Gran % Eos # (Auto) Absolute Lymphs (auto) Absolute Monos (auto) Lymphocytes % Monocytes % Eosinophils % Basophils % Absolute Granulocytes Basophils # Sodium 134 L Potassium 4.4 Chloride 98 Carbon Dioxide 27 Anion Gap 13.6 BUN 11 Creatinine 0.94 Estimated GFR > 60.0 Glucose 154 H Lactic Acid Calcium 9.1 Total Bilirubin 0.40 AST 21 ALT 15 Alkaline Phosphatase 82 Troponin I Serum Total Protein 7.3 Albumin 3.9 Code(s): I16.0 - HYPERTENSIVE URGENCY
[2019-03-11] MEDS ORDERED: Norco 10/325 MG Tablet PO PRN (12:57)
--- NOTE | 2019-03-11 13:19 | XRAY ---
Indication: Cough. Comparison: December 18, 2018. Portable chest remains clear. Heart is not enlarged. Bony thorax intact. No new/acute findings. Impression: Nonacute chest.
[2019-03-11] MEDS: Zestril 10 MG PO SCH (21:06)
[2019-03-12] MEDS: Sodium Chloride 0.9% 1000 ML 1,000 ML IV SCH (02:44)
[2019-03-12 05:12] LABS: Hematocrit 38.2 % (42-50); Hemoglobin 12.7 gm/dl (12.5-18.0); Mean Corpuscular Hemoglobin 30.6 pg (26-32); Mean Corpuscular Hgb Concent. 33.2 g/dl (32-36); Mean Platelet Volume 10.3 fl (6-9.5); Platelet Count 221 K/mm3 (150-450); Red Blood Count 4.15 M/mm3 (4.1-5.6); Red Cell Distribution Width 14.3 % (11.5-14.0); White Blood Count 8.2 K/mm3 (4.0-10.5)
[2019-03-12 05:42] LABS: ALBUMIN 3.7 g/dL (3.5-5.0); ALKALINE PHOSPHATASE 71 U/L (38-126); ANION GAP 12.8 MEQ/L (5-15); BLOOD UREA NITROGEN 14 mg/dL (9-20); CHLORIDE 96 mmol/L (98-107); Calcium 8.7 mg/dL (8.4-10.2); Carbon Dioxide 28 mmol/L (22-30); Creatinine 1 0.95 mg/dL (0.66-1.25); Glucose 131 mg/dL (74-106); Potassium 4.3 mmol/L (3.5-5.1); SGOT/AST 19 U/L (17-59); SGPT/ALT 14 U/L (0-50); SODIUM 133 mmol/L (137-145)
[2019-03-12] MEDS: Fortaz/Tazicef 1 GM** 1 G in Dextrose 5%/Water IV Soln. 100ML PLUS BAG 100 ML IV SCH ×2 (06:22→13:17)
[2019-03-12] MEDS: Ecotrin 325 MG PO SCH (10:07)
[2019-03-12] MEDS: Lopressor 25MG Tab PO SCH (10:07)
[2019-03-12] MEDS: Protonix 40MG Tablet PO SCH (10:07)
[2019-03-12] MEDS: Zestril 10 MG PO SCH (10:07)
--- NOTE | 2019-03-12 12:11 | XRAY ---
Indication: Hypertension. Two-dimensional sonogram and color Doppler imaging of the carotid arteries of the neck performed. Comparison: None Examination of the right carotid circulation demonstrates mild eccentric calcified plaquing in the proximal common carotid artery and minimal soft plaquing at the level of the bulb slightly extending into the origin of the internal/external carotid arteries. PSV of the CCA is 69 cm/s. PSV of the ICA is 92 cm/s. ICA/CCA ratio is 1.3. Normal antegrade vertebral artery flow. Examination of the left carotid circulation demonstrates moderate calcified plaquing at the level of the bulb extending into the origin of the internal/external carotid arteries. PSV of the CCA is 78 cm/s. PSV of the ICA is 111 cm/s. ICA/CCA ratio is 1.4. Normal antegrade vertebral artery flow. Impression: Scattered arteriosclerotic plaquing, left greater than right as detailed. Velocity measurements and ratios are negative for hemodynamically significant flow-limiting stenosis.
[2019-03-12 12:25] VITALS: BP 138/74; PULSE 62; O2SAT 97
--- NOTE | 2019-03-12 13:00 | PCM.DS ---
Discharge Summary Date of Admission: 03/10/19 17:18 Admitting Physician: TASIA CHRISTENSEN Primary Care Provider: JESSEE MONTANEZ Allergies Allergies Penicillins Adverse Reaction (Verified 02/18/19 16:11) Hospital Summary - Hospital Course Hospital Course: Chief Complaint Diagnosis swelling of legs and high blood pressure for few weeks Allergies Allergy/AdvReac Type Severity Reaction Status Date / Time Penicillins AdvReac Verified 02/18/19 16:11 Vital Signs (Last 24 hours) Temp Pulse Resp BP Pulse Ox 03/12/19 12:24 97.8 F 62 20 138/74 97 03/12/19 07:17 97.8 F 56 L 18 144/72 96 03/12/19 04:00 98.2 F 54 L 18 118/56 97 03/11/19 23:44 98.4 F 57 L 18 129/58 96 03/11/19 19:55 98.1 F 71 20 158/76 98 03/11/19 15:42 98.3 F 60 18 147/88 98 Current Medications Generic Name Dose Route Start Last Admin Trade Name Freq PRN Reason Stop Dose Admin Acetaminophen 650 mg 03/10/19 17:18 Tylenol 325 Mg PO 04/09/19 17:17 Q4H PRN PRN PAIN, FEVER, HEADACHE Hydrocodone Bitart/Acetaminophen 1 tab 03/11/19 12:57 [place] 10/325 Mg Tablet PO 03/16/19 12:56 DAILY PRN PRN PAIN Aspirin 325 mg 03/11/19 10:00 03/12/19 10:07 Ecotrin 325 Mg PO 04/10/19 09:59 325 mg DAILY VERNA Administration Enalaprilat 1.25 mg 03/10/19 17:18 Vasotec I.V. 2.5 Mg IV 04/09/19 17:17 Q6H/PRN PRN ELEVATED BLOOD PRESSURE Sodium Chloride 1,000 mls @ 50 mls/hr 03/10/19 17:18 03/12/19 02:44 Sodium Chloride 0.9% 1000 Ml IV 04/09/19 17:17 50 mls/hr .Q20H VERNA Administration Ceftazidime 1 g/ Dextrose 100 mls @ 200 mls/hr 03/10/19 22:00 03/12/19 06:22 IV 04/09/19 21:59 200 mls/hr Q8HT VERNA Administration Lisinopril 10 mg 03/11/19 22:00 03/12/19 10:07 Zestril 10 Mg PO 04/10/19 21:59 10 mg BID VERNA Administration Metoprolol Tartrate 25 mg 03/11/19 10:00 03/12/19 10:07 Lopressor 25mg Tab PO 04/10/19 09:59 25 mg BID VERNA Administration Ondansetron HCl 4 mg 03/10/19 17:18 Zofran 4 Mg/2 Ml Vial IV 04/09/19 17:17 Q6H PRN PRN NAUSEA/VOMITING Pantoprazole Sodium 40 mg 03/11/19 10:00 03/12/19 10:07 Protonix 40mg Tablet PO 04/10/19 09:59 40 mg QAM VERNA Administration Discontinued Medications Generic Name Dose Route Start Last Admin Trade Name Freq PRN Reason Stop Dose Admin Enalaprilat 1.25 mg 03/10/19 15:10 03/10/19 15:42 Vasotec I.V. 2.5 Mg IV 03/10/19 15:11 1.25 mg STAT ONE Administration Enalaprilat Confirm 03/10/19 15:36 Vasotec I.V. 2.5 Mg Administered 03/10/19 15:37 Dose 2.5 mg IV .STK-MED ONE Sodium Chloride 1,000 mls @ 50 mls/hr 03/10/19 15:15 03/10/19 15:41 Sodium Chloride 0.9% 1000 Ml IV 04/09/19 15:14 50 mls/hr .Q20H VERNA Administration Ceftazidime 2 g/ Dextrose 100 mls @ 200 mls/hr 03/10/19 15:30 03/10/19 15:52 IV 04/09/19 15:29 200 mls/hr Q8H VERNA Administration Sodium Chloride Confirm 03/10/19 15:36 Sodium Chloride 0.9% 1000 Ml Administered 03/10/19 15:37 Dose 1,000 mls @ ud .ROUTE .STK-MED ONE Lisinopril 10 mg 03/11/19 10:00 03/11/19 09:25 Zestril 10 Mg PO 04/10/19 09:59 10 mg DAILY VERNA Administration Metoprolol Tartrate 50 mg 03/10/19 22:00 03/10/19 21:06 Lopressor 50 Mg PO 04/09/19 21:59 50 mg BID VERNA Administration Ondansetron HCl 4 mg 03/10/19 15:05 03/10/19 15:42 Zofran 4 Mg/2 Ml Vial IV 03/10/19 15:06 4 mg STAT ONE Administration Ondansetron HCl Confirm 03/10/19 15:35 Zofran 4 Mg/2 Ml Vial Administered 03/10/19 15:36 Dose 4 mg .ROUTE .STK-MED ONE Intake & Output (Last 24 hours) 03/10/19 03/11/19 03/12/19 03/13/19 11:59 11:59 11:59 11:59 Intake Total 1916 3859 Output Total 2350 3650 Balance -434 209 Weight 82 kg 82.8 kg Microbiology Results (Last 24 hours) 03/10/19 15:10 Blood Blood Culture Gram Stain - Pending 03/10/19 15:10 Blood Blood Culture - Preliminary NO GROWTH TO DATE 03/10/19 15:10 Blood Blood Culture Gram Stain - Pending 03/10/19 15:10 Blood Blood Culture - Preliminary NO GROWTH TO DATE 03/10/19 15:10 Leg - Right Lower Wound Culture - Preliminary ORGANISMS ISOLATED ARE CONSISTENT WITH NORMAL SKIN PJ MODERATE GROWTH, NO PREDOMINANT ORGANISM Laboratory Results (Last 24 hours) 03/12/19 03/12/19 04:55 04:55 WBC 8.2 RBC 4.15 Hgb 12.7 Hct 38.2 L MCV 92.0 MCH 30.6 MCHC 33.2 RDW 14.3 H Plt Count 221 MPV 10.3 H Sodium 133 L Potassium 4.3 Chloride 96 L Carbon Dioxide 28 Anion Gap 12.8 BUN 14 Creatinine 0.95 Estimated GFR > 60.0 Glucose 131 H Calcium 8.7 Total Bilirubin 0.50 AST 19 ALT 14 Alkaline Phosphatase 71 Serum Total Protein 7.0 Albumin 3.7 Orders (Last 24 hours) Category Date Time Status CAROTID BILATERAL [US] Routine Exams 03/12/19 10:20 Completed ECHO W/2D AND DOPPLER [US] Routine Exams 03/12/19 10:20 Taken Portable Chest [CHEST 1 VIEW (PORTABLE)] Routine Exams 03/11/19 13:00 Completed CBC AM.LAB Lab 03/12/19 04:55 Completed CMP AM.LAB Lab 03/12/19 04:55 Completed Hydrocodone/APAP 10/325 mg [[place] 10/325 MG Tablet Med 03/11/19 12:57 Active *] 1 tab PO DAILY PRN PRN Lisinopril 10 mg [Zestril 10 MG] Med 03/11/19 22:00 Active 10 mg PO BID Patient Care Notes (Last 24 hours) 03/11/19 13:15 Nursing Note by Ysabel Martinez rounded with dr. christensen on pt. new orders to change lisinopril to bid. will get echo, carotid us and cxr. plan to keep pt until saturday and then dr. christensen will take pt on since pt recently moved here from [place], [place] and doesn' t have a physician. Initialized on 03/11/19 13:15 - END OF NOTE carotid duplex showed no significant stenosis - Vitals & Intake/Output Vital Signs: Vital Signs Temperature 97.8 F 03/12/19 12:24 Pulse Rate 62 03/12/19 12:24 Respiratory Rate 20 03/12/19 12:24 Blood Pressure 138/74 03/12/19 12:24 O2 Sat by Pulse Oximetry 97 03/12/19 12:24 Intake & Output: Intake & Output 03/10/19 03/11/19 03/12/19 03/13/19 11:59 11:59 11:59 11:59 Intake Total 1916 3859 Output Total 9940 3650 Balance -434 209 Weight 82 kg 82.8 kg - Lab Result Diagrams: 03/12/19 04:55 03/12/19 04:55 Lab Results-Last 24 Hrs: Lab Results-Last 24 Hours 03/12/19 03/12/19 Range/Units 04:55 04:55 WBC 8.2 (4.0-10.5) K/mm3 RBC 4.15 (4.1-5.6) M/mm3 Hgb 12.7 (12.5-18.0) gm/dl Hct 38.2 L (42-50) % MCV 92.0 (78-100) fl MCH 30.6 (26-32) pg MCHC 33.2 (32-36) g/dl RDW 14.3 H (11.5-14.0) % Plt Count 221 (150-450) K/mm3 MPV 10.3 H (6-9.5) fl Sodium 133 L (137-145) mmol/L Potassium 4.3 (3.5-5.1) mmol/L Chloride 96 L (98-107) mmol/L Carbon Dioxide 28 (22-30) mmol/L Anion Gap 12.8 (5-15) MEQ/L BUN 14 (9-20) mg/dL Creatinine 0.95 (0.66-1.25) mg/dL Estimated GFR > 60.0 ML/MIN Glucose 131 H (74-106) mg/dL Calcium 8.7 (8.4-10.2) mg/dL Total Bilirubin 0.50 (0.2-1.3) mg/dL AST 19 (17-59) U/L ALT 14 (0-50) U/L Alkaline Phosphatase 71 (38-126) U/L Serum Total Protein 7.0 (6.3-8.2) g/dL Albumin 3.7 (3.5-5.0) g/dL Micro Results-Entire Visit: Microbiology 03/10/19 15:10 Blood Culture - Preliminary Blood NO GROWTH TO DATE 03/10/19 15:10 Blood Culture - Preliminary Blood NO GROWTH TO DATE 03/10/19 15:10 Wound Culture - Preliminary Leg - Right Lower ORGANISMS ISOLATED ARE CONSISTENT WITH NORMAL SKIN PJ MODERATE GROWTH, NO PREDOMINANT ORGANISM - Radiology Exams Ordered Rad Exams-Entire Visit: Radiology Procedures Category Date Time Status CAROTID BILATERAL [US] Routine Exams 03/12/19 10:20 Completed ECHO W/2D AND DOPPLER [US] Routine Exams 03/12/19 10:20 Taken Portable Chest [CHEST 1 VIEW (PORTABLE)] Routine Exams 03/11/19 13:00 Completed - Procedures and Test Procedures and Tests throughout Hospitalization: Therapy Orders & Screens 03/10/19 17:18 PT Eval & Treat ( Order) ROUTINE Reason for Eval:: wound care bilat lower ext Diagnosis: bilat lower ext cellulitis wounds 03/10/19 20:21 Smoking Cessation Education ONCE Comment: Diagnosis: cellulitis, htn crisis Smoking Status: Current some day smoker How long have you smoked: 40 Have you smoked in the past 12 months: Yes Approximately how many cigarettes per day: 10 Discharge Exam General Appearance: no apparent distress, alert Neurologic Exam: alert, oriented x 3, cooperative, normal mood/affect, nml cerebellar function, sensation nml, No motor deficits Eye Exam: PERRL, EOMI, eyes nml inspection Ears, Nose, Throat Exam: normal ENT inspection, pharynx normal, moist mucous membranes Neck Exam: normal inspection, non-tender, supple, full range of motion Respiratory Exam: normal breath sounds, lungs clear, No respiratory distress Cardiovascular Exam: regular rate/rhythm, normal heart sounds Gastrointestinal/Abdomen Exam: soft, No tenderness, No mass Male Genitalia Exam: deferred Rectal Exam: deferred Back Exam: normal inspection, normal range of motion, No CVA tenderness, No vertebral tenderness Extremity Exam: normal inspection, normal range of motion Skin Exam: normal color, warm, dry Wound Assessment: Skin/Wound Assessment Wound/Incision Assessment Start: 03/10/19 17: 19 Text: Status: Active Freq: Q6H Protocol: Document 03/12/19 06:00 PAPI (Rec: 03/12/19 06:15 PAPI [email or web address]) Wound Photo Photo Taken Yes Comment: Placed on chart per day shift. Final Diagnosis/Problem List - Final Discharge Diagnosis/Problem (1) Hypertensive urgency Current Visit: Yes Status: Acute Code(s): I16.0 - HYPERTENSIVE URGENCY (2) Cellulitis Current Visit: Yes Status: Acute Priority: High Code(s): L03.90 - CELLULITIS, UNSPECIFIED - Discharge Discharge Date: 03/12/19 Disposition: Home, Self-Care Condition: Stable Prescriptions: New Smz/Tmp Ds Tablet [Bactrim Ds Tablet] 1 tab PO Q12H #20 tablet Lisinopril 10 mg [Zestril 10 MG] 10 mg PO BID #60 tablet Continue PANTOPRAZOLE 40 mg Tablet [Protonix 40MG Tablet] 40 mg PO QAM Aspirin EC 325 mg [Ecotrin 325 MG] 325 mg PO DAILY Metoprolol Tartrate 50 mg [Lopressor 50 MG] 50 mg PO BID #60 tablet
== END 2019-03-12 14:35 | disposition home or self-care (01) | DRG 305 ==
LOC: ED 14:23 → MED SURG 17:18
PROVIDERS: ADMIT General Practice; ATTEND General Practice
DX: I16.0 Hypertensive urgency (principal); L03.116 Cellulitis of left lower limb; L03.115 Cellulitis of right lower limb; Z79.899 Other long term (current) drug therapy
CPT/HCPCS: 36000; 36415; 71045; 80053; 83605; 84484; 85025; 85027; 87040; 87070; 93005; 93306; 93880; 94760; 96360; 96361; 96365; 96374; 96375; 99285; 99291; A6457; J0713; J2405; A9270-GY

== ENCOUNTER 2019-05-14 11:38 | Observation (INO) | payer MEDICARE, OTHER ==
[2019-05-14] MEDS ORDERED: MOTRIN 600 MG PO PRN (12:05)
[2019-05-14] MEDS ORDERED: ZOFRAN ODT 4 MG PO PRN (12:05)
--- NOTE | 2019-05-14 12:15 | PCM.HP.ADD ---
Addendum to History & Physical - History & Physical Addendum Addendum to History & Physical: This certifies that the History & Physical in the electronic chart reflects the current health status of the patient. If there are changes in the H&P these changes/exceptions are listed as follows.
[2019-05-14] MEDS: Sodium Chloride 0.9% 1000 ML 1,000 ML IV SCH (12:48)
[2019-05-14 12:53] LABS: Hematocrit 33.2 % (42-50); Hemoglobin 11.5 gm/dl (12.5-18.0); Mean Cell Volume 87.4 fl (78-100); Mean Corpuscular Hemoglobin 30.3 pg (26-32); Mean Corpuscular Hgb Concent. 34.6 g/dl (32-36); Mean Platelet Volume 8.5 fl (7.5-11.0); Platelet Count 559 K/mm3 (150-450); Red Cell Distribution Width 13.4 % (11.5-14.0); White Blood Count 10.2 K/mm3 (4.0-10.5)
[2019-05-14 13:13] LABS: ALBUMIN 3.9 g/dL (3.5-5.0); ALKALINE PHOSPHATASE 159 U/L (38-126); ANION GAP 15.2 MEQ/L (5-15); BLOOD UREA NITROGEN 12 mg/dL (9-20); CHLORIDE 83 mmol/L (98-107); Calcium 8.8 mg/dL (8.4-10.2); Carbon Dioxide 27 mmol/L (22-30); Creatinine 1 0.85 mg/dL (0.66-1.25); Glucose 113 mg/dL (74-106); Potassium 3.8 mmol/L (3.5-5.1); SGOT/AST 28 U/L (17-59); SGPT/ALT 40 U/L (0-50); SODIUM 122 mmol/L (137-145); Total Protein 7.8 g/dL (6.3-8.2)
[2019-05-14] MEDS: VANCOMYCIN 1 GRAM/200 ML BAG 1 GM/200 ML PIGGYBACK IV SCH ×2 (14:04→22:16)
[2019-05-14 15:37] LABS: Basophil 1 % (0.0-1.0); Eosinophil 2 % (0.00-3.0); Lymphocytes 29 % (24-44); Monocyte 9 % (0.0-12.0); Neutrophils 59 % (36.-66.); Total Cells Counted 100
[2019-05-14 15:38] LABS: Platelet Estimate INCREASED (NORMAL)
[2019-05-14 15:40] LABS: Absolute Neutrophil Ct (ANC) 5.99 (1.4-6.9)
[2019-05-14] MEDS: Levofloxacin 500MG/100ML D5W 500 MG/100 ML BAG IV SCH (16:16)
[2019-05-14] MEDS ORDERED: Unasyn 3GM / NaCl 100ML 100 ML IV SCH (18:00)
[2019-05-14] MEDS: Lopressor 50 MG PO SCH (22:16)
[2019-05-14] MEDS: Zestril 10 MG PO SCH (22:16)
[2019-05-15] MEDS: Sodium Chloride 0.9% 1000 ML 1,000 ML IV SCH (03:10)
[2019-05-15 07:59] VITALS: O2SAT 98
[2019-05-15] MEDS: Lopressor 50 MG PO SCH (09:46)
[2019-05-15] MEDS: Zestril 10 MG PO SCH (09:46)
[2019-05-15] MEDS ORDERED: Protonix 40MG Tablet PO SCH (10:00)
[2019-05-15] MEDS ORDERED: Ecotrin 325 MG PO SCH (10:00)
--- NOTE | 2019-05-15 10:14 | XRAY ---
Indication: Poor circulation. Foot wounds. Two-dimensional sonogram and color Doppler imaging of the major arteries of the left and right leg was performed. Comparison: None Examination of the right leg demonstrates mild scattered arteriosclerotic disease in the visualized common femoral, deep femoral and superficial femoral arteries. Moderate scattered disease seen in the remaining popliteal, posterior tibial, and dorsal pedal arteries without critical stenosis/obstruction. Arterial waveforms are monophasic throughout the right leg. Examination of the left leg also demonstrates mild scattered arteriosclerotic disease in the common femoral, deep femoral, superficial femoral, popliteal, posterior tibial, and dorsal pedal arteries without critical stenosis/obstruction. Arterial waveforms are monophasic throughout the left leg. Ankle brachial index portion of the exam not performed as the patient could not tolerate. Impression: Scattered arteriosclerotic disease, right leg greater than left. No critical stenosis/obstruction. Arterial waveforms also diffusely monophasic bilaterally. CTA abdominal aorta with bilateral runoff may yield further information.
[2019-05-15] MEDS: VANCOMYCIN 1 GRAM/200 ML BAG 1 GM/200 ML PIGGYBACK IV SCH (10:20)
--- NOTE | 2019-05-15 11:17 | CONS ---
CONSULT DATE: 05/14/2019 REASON FOR CONSULT: Ischemic right lower extremity. HISTORY: The patient is transient to this area. He had been in [place] and he had been in [place]. It sounds like he had some type of bilateral iliac stents in [place] two years ago. He continues to smoke. He smokes two packs per day. He seems to be oblivious about the health issues related to the smoking. He seems oblivious to having been told before that he has to quit this. He finally kind of suggested that he had been told some of this in the past even though he does not really want to admit it. He apparently had some small accident at home and he has an ulcer on the right mid anterior bryson. The right leg is totally inspected except underneath the ulcer. This ulcer is being taken care of by PT today. He is on antibiotic Vancomycin and another broad spectrum antibiotic. He has a 1+ bilateral femoral pulse. He has no palpable distal pulses. 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 He has no hair on any toes. He has some scaling of the skin under the palm of the right distal foot. He has scaling of the skin under the right greater hallux. He may very well have some infection or inflammation of this toe but I do not see an absolute entry site. 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 He has some slight mottled skin changes starting right at the mid knee down the right leg. The left leg at this time is certainly a little better. He states he has had two stents on the right and one stent on the left in the femoral area and these were done just a few months ago out in [place]. There has certainly been new changes here in the last month or two. It seems like there has been substantial progression. He apparently [place] Doppler [place] but I think they are already old news. We will get a new set of arterial Doppler studies and we will consider whether we need to do CT arteriogram on this individual. At this moment it certainly is subacute and chronically ischemic but it is not acutely ischemic. I think this is progression of his disease and there is certainly some component of infection. IV antibiotics, limited activity, PT, wound treatment and we will be able to figure out if any additional revascularization possible in this time frame. He certainly does not seem to be aware of the seriousness of these events as from the time he walked in the door and look at this leg, it is certainly a threatened leg over the near term, maybe more near term than one would hope. At best it is threatened leg over the next year to 18 months.
[2019-05-15] MEDS: Levofloxacin 500MG/100ML D5W 500 MG/100 ML BAG IV SCH (12:08)
[2019-05-15 12:36] VITALS: BP 138/62; PULSE 60
--- NOTE | 2019-05-15 13:02 | PCM.NOTE ---
Date and Time: 05/15/19 1300 Subjective Assessment: doing ok, Patient refused for CT Abdomen and Pelvis with aortic runoff - Review of Systems Constitutional: No Fever, No Chills Eyes: No Symptoms Ears, Nose, & Throat: No Symptoms Respiratory: No Cough, No Short Of Breath Cardiac: No Chest Pain, No Edema, No Syncope Abdominal/Gastrointestinal: No Abdominal Pain, No Nausea, No Vomiting, No Diarrhea Genitourinary Symptoms: No Dysuria Musculoskeletal: No Back Pain, No Neck Pain Skin: Cellulitis (right foot), No Rash Neurological: No Dizziness, No Focal Weakness, No Sensory Changes Psychological: No Symptoms Endocrine: No Symptoms Hematologic/Lymphatic: No Symptoms Immunological/Allergic: No Symptoms Objective Exam Wound Assessment: Skin/Wound Assessment Wound/Incision Assessment Start: 05/14/19 20: 00 Text: Status: Active Freq: Q6H Protocol: Document 05/15/19 08:00 (Rec: 05/15/19 12:10 [id number]) Wound/Incision Assessment Right Lower Leg Wound Assessment Shift Assessment Wound Type Cellulitis Wound Stage Non Pressure Wound Dressing Status Dry & Intact Drainage Amount Minimal Drainage Description Serous Comment Dressing intact, minimal amount of drainage at great toe. No change noted. Left Lower Leg Wound Assessment Shift Assessment Wound Type Cellulitis Wound Stage Non Pressure Wound Dressing Status Dry & Intact Drainage Amount None Comment Change per PT OBJECTIVE DATA Vital Signs: Vital Signs - 24 hr Temp Pulse Resp BP Pulse Ox 05/15/19 12:00 97.4 F 60 18 138/62 98 05/15/19 07:55 97.5 F 61 18 136/64 98 05/15/19 04:00 98.3 F 69 20 161/73 96 05/15/19 00:15 98.0 F 66 20 170/78 96 05/14/19 20:24 97.9 F 75 20 165/79 97 05/14/19 16:00 98.3 F 78 18 150/66 97 Pain Assessment - Last Documented Pain Intensity 3 Pain Scale Used 0-10 Pain Scale Intake and Output: Intake & Output 05/13/19 05/14/19 05/15/19 05/16/19 11:59 11:59 11:59 11:59 Intake Total 5157 Output Total 1999 Balance 3157 Weight 80 kg Lab Results: Lab Results-Last 24 Hours 05/14/19 05/14/19 Range/Units 12:30 12:30 WBC 10.2 (4.0-10.5) K/mm3 RBC 3.80 L (4.1-5.6) M/mm3 Hgb 11.5 L (12.5-18.0) gm/dl Hct 33.2 L (42-50) % MCV 87.4 (78-100) fl MCH 30.3 (26-32) pg MCHC 34.6 (32-36) g/dl RDW 13.4 (11.5-14.0) % Plt Count 559 H (150-450) K/mm3 MPV 8.5 (7.5-11.0) fl Absolute Granulocytes 5.99 (1.4-6.9) Segmented Neutrophils 59 (36.-66.) % Lymphocytes (Manual) 29 (24-44) % Monocytes (Manual) 9 (0.0-12.0) % Eosinophils (Manual) 2 (0.00-3.0) % Basophils (Manual) 1 (0.0-1.0) % Platelet Estimate INCREASED (NORMAL) RBC Morphology NORMAL Sodium 122 L (137-145) mmol/L Potassium 3.8 (3.5-5.1) mmol/L Chloride 83 L (98-107) mmol/L Carbon Dioxide 27 (22-30) mmol/L Anion Gap 15.2 H (5-15) MEQ/L BUN 12 (9-20) mg/dL Creatinine 0.85 (0.66-1.25) mg/dL Estimated GFR > 60.0 ML/MIN Glucose 113 H (74-106) mg/dL Calcium 8.8 (8.4-10.2) mg/dL Total Bilirubin 0.40 (0.2-1.3) mg/dL AST 28 (17-59) U/L ALT 40 (0-50) U/L Alkaline Phosphatase 159 H (38-126) U/L Serum Total Protein 7.8 (6.3-8.2) g/dL Albumin 3.9 (3.5-5.0) g/dL Radiology Exams: Radiology Procedures Category Date Time Status ARTERIAL BILAT LOWER EXTREMITY [US] Routine Exams 05/15/19 08:00 Completed CTA ABD/PEL W FEM RUNOFF [CT] Routine Exams 05/15/19 11:55 Ordered Assessment/Plan (1) Cellulitis Current Visit: Yes Status: Acute Qualifiers: Site of cellulitis: extremity Site of cellulitis of extremity: lower extremity Laterality: right Qualified Code(s): L03.115 - Cellulitis of right lower limb Assessment & Plan: Last Vital Signs Temp 97.4 F 05/15/19 12:00 Pulse 60 05/15/19 12:00 Resp 18 05/15/19 12:00 BP 138/62 05/15/19 12:00 Pulse Ox 98 05/15/19 12:00 Allergies Penicillins Allergy (Verified 05/14/19 12:43) Active Medications Aspirin (Ecotrin 325 Mg) 325 mg PO DAILY [facility] Stop: 06/14/19 09:59 Last Admin: 05/15/19 09:45 Dose: 325 mg Device (Trough Drug Levels) 1 IJ 1XONLY ONE Stop: 05/16/19 09:31 Sodium Chloride (Sodium Chloride 0.9% 1000 Ml) 1,000 mls @ 100 mls/hr IV .Q10H [facility] Stop: 06/13/19 12:14 Last Admin: 05/15/19 03:10 Dose: 100 mls/hr Vancomycin HCl (Vancomycin 1 Gram/200 Ml Bag) 1 gm in 200 mls @ 133.333 mls/hr IV Q12HT [facility] Stop: 06/13/19 13:59 Last Admin: 05/15/19 10:20 Dose: 133.333 mls/hr Levofloxacin/Dextrose (Levofloxacin 500mg/100ml D5w) 500 mg in 100 mls @ 100 mls/hr IV Q24H10 [facility] Stop: 06/13/19 14:59 Last Admin: 05/15/19 12:08 Dose: 100 mls/hr Ibuprofen (Motrin 600 Mg) 600 mg PO TIDP PRN PRN Reason: MODERATE PAIN Stop: 06/13/19 12:04 Last Admin: 05/15/19 02:17 Dose: 600 mg Lisinopril (Zestril 10 Mg) 10 mg PO BID [facility] Stop: 06/13/19 21:59 Last Admin: 05/15/19 09:46 Dose: 10 mg Metoprolol Tartrate (Lopressor 50 Mg) 50 mg PO BID [facility] Stop: 06/13/19 21:59 Last Admin: 05/15/19 09:46 Dose: 50 mg Ondansetron HCl (Zofran Odt 4 Mg) 4 mg PO Q6H PRN PRN PRN Reason: NAUSEA/VOMITING Stop: 06/13/19 12:04 Pantoprazole Sodium (Protonix 40mg Tablet) 40 mg PO QAM [facility] Stop: 06/14/19 09:59 Last Admin: 05/15/19 09:46 Dose: 40 mg Intake & Output 05/15/19 05/16/19 11:59 11:59 Intake Total 5157 Output Total 1999 Balance 3157 Weight 80 kg Orders 05/14/19 12:05 Up Ad Eli TOLERATED Place in Observation ROUTINE Ibuprofen 600 mg [Motrin 600 mg] 600 mg PO TIDP PRN Ondansetron ODT 4 MG [Zofran Odt 4 mg] 4 mg PO Q6H PRN PRN 05/14/19 12:15 NaCl 0.9% 1000 ml [Sodium Chloride 0.9% 1000 ML] 1,000 ml IV 100 mls/hr 05/14/19 12:32 [employer]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 05/14/19 12:36 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 05/14/19 14:00 Vancomycin/Water For Inj (Peg) [Vancomycin 1 Gram/200 ml Bag] 1 gm in 200 ml IV Q12HT 05/14/19 15:00 Levofloxacin [Levofloxacin 500MG/100ML D5W] 500 mg in 100 ml IV Q24H10 05/14/19 22:00 Lisinopril 10 mg [Zestril 10 MG] 10 mg PO BID Metoprolol Tartrate 50 mg [Lopressor 50 MG] 50 mg PO BID 05/14/19 Dinner Regular Diet 05/15/19 01:09 BLOOD CULTURE AM.LAB 05/15/19 10:00 Aspirin EC 325 mg [Ecotrin 325 MG] 325 mg PO DAILY PANTOPRAZOLE 40 mg Tablet [Protonix 40MG Tablet] 40 mg PO QAM 05/16/19 09:30 Vancomycin, Trough Urgent Therapuetic Drug Level Monitor [Trough Drug Levels] 1 IJ 1XONLY ONE Lab Tests 05/14/19 05/14/19 12:30 12:30 Absolute Granulocytes 5.99 Segmented Neutrophils 59 Lymphocytes (Manual) 29 Monocytes (Manual) 9 Eosinophils (Manual) 2 Basophils (Manual) 1 Platelet Estimate INCREASED RBC Morphology NORMAL Sodium 122 L Potassium 3.8 Chloride 83 L Carbon Dioxide 27 Anion Gap 15.2 H BUN 12 Creatinine 0.85 Estimated GFR > 60.0 Glucose 113 H Calcium 8.8 Total Bilirubin 0.40 AST 28 ALT 40 Alkaline Phosphatase 159 H Serum Total Protein 7.8 Albumin 3.9 Code(s): L03.90 - CELLULITIS, UNSPECIFIED (2) Peripheral vascular disease of extremity with claudication Current Visit: Yes Status: Suspected Assessment & Plan: Chief Complaint Diagnosis cellulitis Allergies Allergy/AdvReac Type Severity Reaction Status Date / Time Penicillins Allergy Verified 05/14/19 12:43 Vital Signs (Last 24 hours) Temp Pulse Resp BP Pulse Ox 05/15/19 12:00 97.4 F 60 18 138/62 98 05/15/19 07:55 97.5 F 61 18 136/64 98 05/15/19 04:00 98.3 F 69 20 161/73 96 05/15/19 00:15 98.0 F 66 20 170/78 96 05/14/19 20:24 97.9 F 75 20 165/79 97 05/14/19 16:00 98.3 F 78 18 150/66 97 Current Medications Generic Name Dose Route Start Last Admin Trade Name Freq PRN Reason Stop Dose Admin Aspirin 325 mg 05/15/19 10:00 05/15/19 09:45 Ecotrin 325 Mg PO 06/14/19 09:59 325 mg DAILY [facility] Administration Device 1 05/16/19 09:30 Trough Drug Levels IJ 05/16/19 09:31 1XONLY ONE Sodium Chloride 1,000 mls @ 100 mls/hr 05/14/19 12:15 05/15/19 03:10 Sodium Chloride 0.9% 1000 Ml IV 06/13/19 12:14 100 mls/hr .Q10H [facility] Administration Vancomycin HCl 1 gm in 200 mls @ 133.333 mls/hr 05/14/19 14:00 05/15/19 10:20 Vancomycin 1 Gram/200 Ml Bag IV 06/13/19 13:59 133.333 mls/hr Q12HT [facility] Administration Levofloxacin/Dextrose 500 mg in 100 mls @ 100 mls/hr 05/14/19 15:00 05/15/19 12:08 Levofloxacin 500mg/100ml D5w IV 06/13/19 14:59 100 mls/hr Q24H10 [facility] Administration Ibuprofen 600 mg 05/14/19 12:05 05/15/19 02:17 Motrin 600 Mg PO 06/13/19 12:04 600 mg TIDP PRN Administration MODERATE PAIN Lisinopril 10 mg 05/14/19 22:00 05/15/19 09:46 Zestril 10 Mg PO 06/13/19 21:59 10 mg BID [facility] Administration Metoprolol Tartrate 50 mg 05/14/19 22:00 05/15/19 09:46 Lopressor 50 Mg PO 06/13/19 21:59 50 mg BID [facility] Administration Ondansetron HCl 4 mg 05/14/19 12:05 Zofran Odt 4 Mg PO 06/13/19 12:04 Q6H PRN PRN NAUSEA/VOMITING Pantoprazole Sodium 40 mg 05/15/19 10:00 05/15/19 09:46 Protonix 40mg Tablet PO 06/14/19 09:59 40 mg QAM [facility] Administration Discontinued Medications Generic Name Dose Route Start Last Admin Trade Name Freq PRN Reason Stop Dose Admin Ampicillin Sodium/Sulbactam Sodium 100 mls @ 100 mls/hr 05/14/19 18:00 Unasyn 3gm / Nacl 100ml IV 06/13/19 17:59 Q6HT [facility] Intake & Output (Last 24 hours) 05/13/19 05/14/19 05/15/19 05/16/19 11:59 11:59 11:59 11:59 Intake Total 5157 Output Total 2000 Balance 3157 Weight 80 kg Microbiology Results (Last 24 hours) 05/14/19 04:06 Foot - Right Bottom Wound Culture - Pending 05/15/19 01:09 Blood Blood Culture Gram Stain - Pending 05/15/19 01:09 Blood Blood Culture - Pending Laboratory Results (Last 24 hours) 05/14/19 05/14/19 12:30 12:30 Absolute Granulocytes 5.99 Segmented Neutrophils 59 Lymphocytes (Manual) 29 Monocytes (Manual) 9 Eosinophils (Manual) 2 Basophils (Manual) 1 Platelet Estimate INCREASED RBC Morphology NORMAL Sodium 122 L Potassium 3.8 Chloride 83 L Carbon Dioxide 27 Anion Gap 15.2 H BUN 12 Creatinine 0.85 Estimated GFR > 60.0 Glucose 113 H Calcium 8.8 Total Bilirubin 0.40 AST 28 ALT 40 Alkaline Phosphatase 159 H Serum Total Protein 7.8 Albumin 3.9 Orders (Last 24 hours) Category Date Time Status Up Ad Eli TOLERATED Activity 05/14/19 12:[address] in Observation ROUTINE Care 05/14/19 12:05 Active Consult Surgery ROUTINE Cons 05/14/19 12:08 Completed 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 Cons 05/14/19 12:32 Active 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 Cons 05/14/19 12:36 Active Regular Diet Diet 05/14/19 Dinner Active ARTERIAL BILAT LOWER EXTREMITY [US] Routine Exams 05/15/19 08:00 Completed CTA ABD/PEL W FEM RUNOFF [CT] Routine Exams 05/15/19 11:55 Ordered BLOOD CULTURE AM.LAB Lab 05/15/19 01:09 Received CBC W DIFF Stat Lab 05/14/19 12:30 Completed CMP Stat Lab 05/14/19 12:30 Completed Manual Differential NC Stat Lab 05/14/19 12:30 Completed Vancomycin, Trough Urgent Lab 05/16/19 09:30 Ordered Ampicillin/Sulbactam 3 gm [Unasyn 3GM / NaCl 100ML] 100 Med 05/14/19 18:00 Discontinued ml IV Q6HT Aspirin EC 325 mg [Ecotrin 325 MG] Med 05/15/19 10:00 Active 325 mg PO DAILY Ibuprofen 600 mg [Motrin 600 mg] Med 05/14/19 12:05 Active 600 mg PO TIDP PRN Levofloxacin [Levofloxacin 500MG/100ML D5W] Med 05/14/19 15:00 Active 500 mg in 100 ml IV Q24H10 Lisinopril 10 mg [Zestril 10 MG] Med 05/14/19 22:00 Active 10 mg PO BID Metoprolol Tartrate 50 mg [Lopressor 50 MG] Med 05/14/19 22:00 Active 50 mg PO BID NaCl 0.9% 1000 ml [Sodium Chloride 0.9% 1000 ML] 1,000 Med 05/14/19 12:15 Active ml IV 100 mls/hr Ondansetron ODT 4 MG [Zofran Odt 4 mg] Med 05/14/19 12:05 Active 4 mg PO Q6H PRN PRN PANTOPRAZOLE 40 mg Tablet [Protonix 40MG Tablet] Med 05/15/19 10:00 Active 40 mg PO QAM Therapuetic Drug Level Monitor [Trough Drug Levels] Med 05/16/19 09:30 Once 1 IJ 1XONLY ONE Vancomycin/Water For Inj (Peg) [Vancomycin 1 Gram/200 Med 05/14/19 14:00 Active ml Bag] 1 gm in 200 ml IV Q12HT PT Eval & Treat (MD Order) ASORD PT 05/14/19 12:08 Completed Code(s): I73.9 - PERIPHERAL VASCULAR DISEASE, UNSPECIFIED
--- NOTE | 2019-05-15 13:12 | PCM.DS ---
Discharge Summary Date of Admission: 05/14/19 11:47 Admitting Physician: TASIA CHRISTENSEN Consults: Consults on Case 05/14/19 12:08 Consult Surgery ROUTINE Primary Care Provider: TASIA CHRISTENSEN Allergies Allergies Penicillins Allergy (Verified 05/14/19 12:43) Hospital Summary - Hospital Course Hospital Course: Last Vital Signs Temp 97.4 F 05/15/19 12:00 Pulse 60 05/15/19 12:00 Resp 18 05/15/19 12:00 BP 138/62 05/15/19 12:00 Pulse Ox 98 05/15/19 12:00 Allergies Penicillins Allergy (Verified 05/14/19 12:43) Active Medications Aspirin (Ecotrin 325 Mg) 325 mg PO DAILY [facility] Stop: 06/14/19 09:59 Last Admin: 05/15/19 09:45 Dose: 325 mg Device (Trough Drug Levels) 1 IJ 1XONLY ONE Stop: 05/16/19 09:31 Sodium Chloride (Sodium Chloride 0.9% 1000 Ml) 1,000 mls @ 100 mls/hr IV .Q10H [facility] Stop: 06/13/19 12:14 Last Admin: 05/15/19 03:10 Dose: 100 mls/hr Vancomycin HCl (Vancomycin 1 Gram/200 Ml Bag) 1 gm in 200 mls @ 133.333 mls/hr IV Q12HT [facility] Stop: 06/13/19 13:59 Last Admin: 05/15/19 10:20 Dose: 133.333 mls/hr Levofloxacin/Dextrose (Levofloxacin 500mg/100ml D5w) 500 mg in 100 mls @ 100 mls/hr IV Q24H10 [facility] Stop: 06/13/19 14:59 Last Admin: 05/15/19 12:08 Dose: 100 mls/hr Ibuprofen (Motrin 600 Mg) 600 mg PO TIDP PRN PRN Reason: MODERATE PAIN Stop: 06/13/19 12:04 Last Admin: 05/15/19 02:17 Dose: 600 mg Lisinopril (Zestril 10 Mg) 10 mg PO BID [facility] Stop: 06/13/19 21:59 Last Admin: 05/15/19 09:46 Dose: 10 mg Metoprolol Tartrate (Lopressor 50 Mg) 50 mg PO BID [facility] Stop: 06/13/19 21:59 Last Admin: 05/15/19 09:46 Dose: 50 mg Ondansetron HCl (Zofran Odt 4 Mg) 4 mg PO Q6H PRN PRN PRN Reason: NAUSEA/VOMITING Stop: 06/13/19 12:04 Pantoprazole Sodium (Protonix 40mg Tablet) 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 05/14/19 12:36 Automation Test Developer/Discharge Plan ROUTINE 05/14/19 14:00 Vancomycin/Water For Inj (Peg) [Vancomycin 1 Gram/200 ml Bag] 1 gm in 200 ml IV Q12HT 05/14/19 15:00 Levofloxacin [Levofloxacin 500MG/100ML D5W] 500 mg in 100 ml IV Q24H10 05/14/19 22:00 Lisinopril 10 mg [Zestril 10 MG] 10 mg PO BID Metoprolol Tartrate 50 mg [Lopressor 50 MG] 50 mg PO BID 05/14/19 Dinner Regular Diet 05/15/19 01:09 BLOOD CULTURE AM.LAB 05/15/19 10:00 Aspirin EC 325 mg [Ecotrin 325 MG] 325 mg PO DAILY PANTOPRAZOLE 40 mg Tablet [Protonix 40MG Tablet] 40 mg PO QAM 05/16/19 09:30 Vancomycin, Trough Urgent Therapuetic Drug Level Monitor [Trough Drug Levels] 1 IJ 1XONLY ONE Lab Tests 05/14/19 05/14/19 12:30 12:30 Absolute Granulocytes 5.99 Segmented Neutrophils 59 Lymphocytes (Manual) 29 Monocytes (Manual) 9 Eosinophils (Manual) 2 Basophils (Manual) 1 Platelet Estimate INCREASED RBC Morphology NORMAL Sodium 122 L Potassium 3.8 Chloride 83 L Carbon Dioxide 27 Anion Gap 15.2 H BUN 12 Creatinine 0.85 Estimated GFR > 60.0 Glucose 113 H Calcium 8.8 Total Bilirubin 0.40 AST 28 ALT 40 Alkaline Phosphatase 159 H Serum Total Protein 7.8 Albumin 3.9 - Vitals & Intake/Output Vital Signs: Vital Signs Temperature 97.4 F 05/15/19 12:00 Pulse Rate 60 05/15/19 12:00 Respiratory Rate 18 05/15/19 12:00 Blood Pressure 138/62 05/15/19 12:00 O2 Sat by Pulse Oximetry 98 05/15/19 12:00 Intake & Output: Intake & Output 05/13/19 05/14/19 05/15/19 05/16/19 11:59 11:59 11:59 11:59 Intake Total 5157 Output Total 1999 Balance 3157 Weight 80 kg - Lab Result Diagrams: 05/14/19 12:30 05/14/19 12:30 Lab Results-Last 24 Hrs: Lab Results-Last 24 Hours 05/14/19 05/14/19 Range/Units 12:30 12:30 Absolute Granulocytes 5.99 (1.4-6.9) Segmented Neutrophils 59 (36.-66.) % Lymphocytes (Manual) 29 (24-44) % Monocytes (Manual) 9 (0.0-12.0) % Eosinophils (Manual) 2 (0.00-3.0) % Basophils (Manual) 1 (0.0-1.0) % Platelet Estimate INCREASED (NORMAL) RBC Morphology NORMAL Sodium 122 L (137-145) mmol/L Potassium 3.8 (3.5-5.1) mmol/L Chloride 83 L (98-107) mmol/L Carbon Dioxide 27 (22-30) mmol/L Anion Gap 15.2 H (5-15) MEQ/L BUN 12 (9-20) mg/dL Creatinine 0.85 (0.66-1.25) mg/dL Estimated GFR > 60.0 ML/MIN Glucose 113 H (74-106) mg/dL Calcium 8.8 (8.4-10.2) mg/dL Total Bilirubin 0.40 (0.2-1.3) mg/dL AST 28 (17-59) U/L ALT 40 (0-50) U/L Alkaline Phosphatase 159 H (38-126) U/L Serum Total Protein 7.8 (6.3-8.2) g/dL Albumin 3.9 (3.5-5.0) g/dL - Radiology Exams Ordered Rad Exams-Entire Visit: Radiology Procedures Category Date Time Status ARTERIAL BILAT LOWER EXTREMITY [US] Routine Exams 05/15/19 08:00 Completed CTA ABD/PEL W FEM RUNOFF [CT] Routine Exams 05/15/19 11:55 Ordered - Procedures and Test Procedures and Tests throughout Hospitalization: Therapy Orders & Screens 05/14/19 12:08 PT Eval & Treat ( Order) ASORD Reason for Eval:: right foot ulcer Diagnosis: right foot ulcer Discharge Exam General Appearance: no apparent distress, alert Neurologic Exam: alert, oriented x 3, cooperative, normal mood/affect, nml cerebellar function, sensation nml, No motor deficits Eye Exam: PERRL, EOMI, eyes nml inspection Ears, Nose, Throat Exam: normal ENT inspection, pharynx normal, moist mucous membranes Neck Exam: normal inspection, non-tender, supple, full range of motion Respiratory Exam: normal breath sounds, lungs clear, No respiratory distress Cardiovascular Exam: regular rate/rhythm, normal heart sounds Gastrointestinal/Abdomen Exam: soft, No tenderness, No mass Male Genitalia Exam: deferred Rectal Exam: deferred Back Exam: normal inspection, normal range of motion, No CVA tenderness, No vertebral tenderness Extremity Exam: normal inspection, normal range of motion Skin Exam: normal color, warm, dry Wound Assessment: Skin/Wound Assessment Wound/Incision Assessment Start: 05/14/19 20: 00 Text: Status: Active Freq: Q6H Protocol: Document 05/15/19 08:00 (Rec: 05/15/19 12:10 [id number]) Wound/Incision Assessment Right Lower Leg Wound Assessment Shift Assessment Wound Type Cellulitis Wound Stage Non Pressure Wound Dressing Status Dry & Intact Drainage Amount Minimal Drainage Description Serous Comment Dressing intact, minimal amount of drainage at great toe. No change noted. Left Lower Leg Wound Assessment Shift Assessment Wound Type Cellulitis Wound Stage Non Pressure Wound Dressing Status Dry & Intact Drainage Amount None Comment Change per PT Final Diagnosis/Problem List - Final Discharge Diagnosis/Problem (1) Cellulitis Current Visit: Yes Status: Acute Priority: High Code(s): L03.90 - CELLULITIS, UNSPECIFIED (2) Peripheral vascular disease of extremity with claudication Current Visit: Yes Status: Suspected Code(s): I73.9 - PERIPHERAL VASCULAR DISEASE, UNSPECIFIED - Discharge Discharge Date: 05/15/19 Disposition: Home, Self-Care Condition: Stable Prescriptions: New Levofloxacin [Levaquin] 500 mg PO DAILY #7 tablet Continue PANTOPRAZOLE 40 mg Tablet [Protonix 40MG Tablet] 40 mg PO QAM Aspirin EC 325 mg [Ecotrin 325 MG] 325 mg PO DAILY Lisinopril 10 mg [Zestril 10 MG] 10 mg PO BID #60 tablet Metoprolol Tartrate 50 mg [Lopressor 50 MG] 50 mg PO BID #60 tablet Follow up with: TASIA CHRISTENSEN MD [Primary Care Provider] - 1 Week
--- NOTE | 2019-05-15 14:09 | PCM.NOTE ---
Date and Time: 05/15/19 1403 Subjective Assessment: no acute issues overnight. pain minimal. no weakness/numbness Objective Exam Wound Assessment: Skin/Wound Assessment Wound/Incision Assessment Start: 05/14/19 20: 00 Text: Status: Active Freq: Q6H Protocol: Document 05/15/19 08:00 (Rec: 05/15/19 12:10 [id number]) Wound/Incision Assessment Right Lower Leg Wound Assessment Shift Assessment Wound Type Cellulitis Wound Stage Non Pressure Wound Dressing Status Dry & Intact Drainage Amount Minimal Drainage Description Serous Comment Dressing intact, minimal amount of drainage at great toe. No change noted. Left Lower Leg Wound Assessment Shift Assessment Wound Type Cellulitis Wound Stage Non Pressure Wound Dressing Status Dry & Intact Drainage Amount None Comment Change per PT Comments: 05/15/19 14:04 nad nonlabored resps rrr r fem 1+ dp pt nonpalp. dependent rubor calf down. wound bryson, toe #1 skin breakdown. wiggles toes. sensation intact. slight L fem 1+ dp pt nonpalp. wiggles toes. dependent rubor sens intact. OBJECTIVE DATA Vital Signs: Vital Signs - 24 hr Temp Pulse Resp BP Pulse Ox 05/15/19 12:00 97.4 F 60 18 138/62 98 05/15/19 07:55 97.5 F 61 18 136/64 98 05/15/19 04:00 98.3 F 69 20 161/73 96 05/15/19 00:15 98.0 F 66 20 170/78 96 05/14/19 20:24 97.9 F 75 20 165/79 97 05/14/19 16:00 98.3 F 78 18 150/66 97 Pain Assessment - Last Documented Pain Intensity 3 Pain Scale Used 0-10 Pain Scale Intake and Output: Intake & Output 05/13/19 05/14/19 05/15/19 05/16/19 06:59 06:59 06:59 06:59 Intake Total 4651 480 Output Total 1999 Balance 5177 480 Weight 80 kg Lab Results: Lab Results-Last 24 Hours 05/14/19 Range/Units 12:30 Absolute Granulocytes 5.99 (1.4-6.9) Segmented Neutrophils 59 (36.-66.) % Lymphocytes (Manual) 29 (24-44) % Monocytes (Manual) 9 (0.0-12.0) % Eosinophils (Manual) 2 (0.00-3.0) % Basophils (Manual) 1 (0.0-1.0) % Platelet Estimate INCREASED (NORMAL) RBC Morphology NORMAL Radiology Exams: Radiology Procedures Category Date Time Status ARTERIAL BILAT LOWER EXTREMITY [US] Routine Exams 05/15/19 08:00 Completed CTA ABD/PEL W FEM RUNOFF [CT] Routine Exams 05/15/19 11:55 Taken Multi-Disciplinary Progress Notes: Multi-Disciplinary Progress Notes 05/15/19 13:39 Case Management Note by Hailey Banda PATIENT'S HOME HEALTH NURSE MYNOR WAS NOTIFIED OF PATIENT'S ADMISSION. SHE STATED SHE WOULD CALL THE OFFICE TO LET THEM KNOW. SHE IS AWARE THE PATIENT WILL BE DISCHARGING HOME TODAY (PER JBEARTaylor). SHE WAS ALSO NOTIFIED THAT PATIENT WOULD LIKE A WALKER. SHE IS GOING TO HELP ARRANGE FOR THIS DR. CHRISTENSEN HAS ALREADY LEFT. NURSING TO FAX DC INSTRUCTIONS AND MED LIST TO [facility] AT [phone]. Initialized on 05/15/19 13:39 - END OF NOTE Assessment/Plan (1) Peripheral vascular disease of extremity with claudication Current Visit: Yes Status: Suspected Assessment & Plan: 68yo male BLE bryson wounds, right #1 toe skin breakdown, chronic PVD. hx stents. His erythema today appears more dependent rubor than cellulitis though may have some infective component. Duplex + distal signals though monophasic did not tolerate ABIs motorsens intact. He will need intervention for his nonhealing wounds. -cta ordered -will likely need angiogram and revasc short term. -follow up within a week in office if he is discharged. will review cta. Code(s): I73.9 - PERIPHERAL VASCULAR DISEASE, UNSPECIFIED
--- NOTE | 2019-05-15 14:32 | XRAY ---
Indication: Bilateral leg erythema and swelling. Conventional contrast enhanced CTA abdominal aorta with bilateral runoff performed using 80 cc Isovue 370 contrast. Two-dimensional sagittal and coronal reformatted images obtained. Additional 3-dimensional reformatted images obtained using a separate workstation. Comparison: None Abdominal aorta demonstrates mild scattered arteriosclerotic calcifications without aneurysm. Celiac and superior mesenteric arteries demonstrates minimal calcifications at the origin and proximal segments. No post stenotic dilatation. The inferior mesenteric artery appears normal in CTA appearance. Left kidney demonstrates a single renal artery and the right kidney demonstrates 2 renal arteries all with mild intra and extrarenal scattered calcifications without critical stenosis/obstruction. Left leg runoff demonstrates moderate/significant scattered arteriosclerotic calcifications in the common iliac and internal iliac arteries. External iliac artery demonstrates minimal/mild calcifications with focal 50% stenosis at the junction of the external iliac and common femoral artery. Remaining common femoral and deep femoral arteries demonstrates mild scattered calcifications. Superficial femoral artery demonstrates minimal scattered calcifications throughout. At the level of the adductor hiatus, there is focal high-grade 99% stenosis. Popliteal artery demonstrates mild/moderate scattered. Trifurcation vessels demonstrates minimal disease in the posterior tibial artery and lesser degree anterior tibial artery. Peroneal artery appears normal in CT appearance. There is three-vessel runoff into the left foot. Examination of the right leg also demonstrates moderate/significant arteriosclerotic disease in the common iliac and internal iliac arteries. Mild arteriosclerotic disease in the external iliac and mild/moderate disease in the common femoral artery. There is 99% stenosis in the distal most common femoral artery. Minimal disease scattered in the deep femoral and superficial femoral arteries. Moderate/significant scattered disease seen in the popliteal artery with high-grade 99% stenosis mid level. Trifurcation vessels demonstrates minimal disease in the proximal posterior tibial artery with distal tapering off by lower leg level. Only the anterior tibial and peroneal arteries cross the ankle joint to supply the right foot. Noncontrasted stomach and bowel loops appear nonobstructed. Mild diffuse fatty liver. Gallbladder demonstrates a vague intraluminal gravel/sludge. Right mid kidney demonstrates 2.4 cm exophytic cyst. Remaining pancreas, spleen, adrenal glands, kidneys, ureters, and bladder appear unremarkable. Benign prostate calcifications. No pathologic retroperitoneal lymphadenopathy. Lung bases are clear. Heart is not enlarged. Osseous structures intact. Impression: 1. CTA abdominal aorta demonstrates mild scattered arteriosclerotic disease without aneurysm/dissection. Celiac, superior mesenteric, and renal arteries also demonstrates minimal/mild disease without critical stenosis or obstruction. 2. Left leg runoff demonstrates diffuse scattered arteriosclerotic disease throughout. Focal 50% stenosis at the junction of the external iliac and common iliac artery. Superficial femoral artery demonstrates high-grade 99% stenosis at the level of the adductor hiatus. There is three-vessel runoff into the left foot. 3. Right leg runoff also demonstrates diffuse scattered arterial sclerotic disease throughout. High-grade 99% stenosis distal common femoral artery and mid popliteal artery. There is two-vessel runoff into the right foot. 4. Incidental gallbladder gravel/sludge, fatty liver, right renal cyst, and benign prostate calcifications
[2019-05-16] MEDS ORDERED: TROUGH DRUG LEVELS IJ ONE (09:30)
== END 2019-05-15 15:05 | disposition home or self-care (01) ==
LOC: MED SURG 11:47
PROVIDERS: ADMIT General Practice; ATTEND General Practice
DX: L03.115 Cellulitis of right lower limb (principal); I73.9 Peripheral vascular disease, unspecified; I10 Essential (primary) hypertension; Z79.899 Other long term (current) drug therapy
CPT/HCPCS: 36415; 75635; 80053; 85025; 87040; 87070; 87077; 87186; 93925; 97162; 97598; G0378; A6457; J1956; A9270-GY; J3370

== ENCOUNTER 2021-04-04 17:56 | Emergency (ER) | payer MEDICARE ==
--- NOTE | 2021-04-04 18:22 | ERPHSYRPT ---
- History of Present Illness Source: patient Exam Limitations: no limitations Patient Subjective Stated Complaint: SOB Triage Nursing Assessment: Patient ambulated back to ED and transferred self to bed. Patient A+OX 3. Patient's skin pink, warm and dry. Patient complains of SOB that started after he fell in his kitchen hitting his left side of chest on a can of soup. Patient complains of left sided chest pain 5/10. Patient has raised area with bruising to left side of chest with no crepitus noted. Patient's lungs wheezing A/P tono. Patient's brother did of COVID on Occurred: yesterday Reason for Fall: unknown Injuries/Pain Location: chest Loss of Consciousness: no loss of consciousness Quality: throbbing Severity of Pain-Max: moderate Severity of Pain-Current: moderate Modifying Factors: Improves With: movement Associated Symptoms (Fall): shortness of breath Hx Tetanus, Diphtheria Vaccination/Date Given: (unk) Hx Influenza Vaccination/Date Given: No Hx Pneumococcal Vaccination/Date Given: No Immunizations Up to Date: Yes - History of Present Illness Time Seen by Provider: 04/04/21 18:00 Physician History: Patient is a 70-year-old white male who presents with shortness of breath and left-sided chest pain after falling in his kitchen and landing on a can of soup. He has had increasing shortness of breath and pain in the left anterior chest since. It also should be noted that his brother recently from Covid. The incident occurred last night. Family reports that this patient cannot be left alone he falls constantly he fell again this morning. Family reports that he suffers from what sounds like narcolepsy where he will just fall asleep standing up and falls down he sleeps in a chair for no more than an hour at a time. (ANGI WATTS) Allergies/Adverse Reactions: Penicillins Allergy (Verified 04/04/21 17:57) Home Medications: Aspirin EC 325 mg [Ecotrin 325 MG] 325 mg PO DAILY 02/18/19 [History] PANTOPRAZOLE 40 mg Tablet [Protonix 40MG Tablet] 40 mg PO QAM 02/18/19 [History] Travel Risk - International Travel Have you traveled outside of the country in past 3 weeks: No - Coronavirus Screening Symptoms: Cough: New Onset, Shortness of Breath Close contact with a COVID-19 positive Pt in past 14-21 Days: Yes - Vaccine Status Have you recieved a Covid-19 vaccination: No - Review of Systems Constitutional: No Fever, No Chills Eyes: No Symptoms Ears, Nose, & Throat: No Symptoms Respiratory: No Cough, No Dyspnea Cardiac: No Chest Pain, No Edema, No Syncope Abdominal/Gastrointestinal: No Abdominal Pain, No Nausea, No Vomiting, No Diarrhea Genitourinary Symptoms: No Dysuria Musculoskeletal: No Back Pain, No Neck Pain Skin: No Rash Neurological: No Dizziness, No Focal Weakness, No Sensory Changes Psychological: No Symptoms Endocrine: No Symptoms All Other Systems: Reviewed and Negative - Past Medical History Pertinent Past Medical History: Yes Neurological History: No Pertinent History ENT History: No Pertinent History Cardiac History: Hypertension Respiratory History: No Pertinent History Endocrine Medical History: No Pertinent History Musculoskeletal History: No Pertinent History GI Medical History: No Pertinent History History: No Pertinent History Psycho-Social History: No Pertinent History Male Reproductive Disorders: No Pertinent History Other Medical History: SD, Stent x 2 in right le and 1 in left femoral artery - Past Surgical History Past Surgical History: Yes Neuro Surgical History: No Pertinent History Cardiac: Vascular Surgery Respiratory: No Pertinent History Gastrointestinal: No Pertinent History Genitourinary: No Pertinent History Musculoskeletal: No Pertinent History Male Surgical History: No Pertinent History Other Surgical History: stent to tono femoral artery, caroditectomy - Social History Smoking Status: Current every day smoker How long have you smoked: years Exposure to second hand smoke: No Drug Use: none Patient Lives Alone: Yes - [place] Coma Score Best Eye Response ([place]): (4) open spontaneously Best Verbal Response (Peggy): (5) oriented Best Motor Response (Peggy): (6) obeys commands Peggy Total: 15 - Physical Exam General Appearance: mild distress Head Injury: contusions (Contusion abrasion to the tip of the nose) Eye Exam: PERRL/EOMI ENT Exam: airway nml Neck Exam: supple, trachea midline, full range of motion Respiratory/Chest Exam: chest tenderness, rhonchi, wheezing Cardiovascular Exam: normal heart sounds, regular rate/rhythm Gastrointestinal Exam: soft, No tenderness, No distention, No guarding, No ecchymosis Back Exam: normal inspection, No vertebral tenderness Extremity Exam: normal inspection, normal range of motion, pelvis stable, No deformities Neurologic Exam: alert, oriented x 3, cooperative, sensation nml, No motor deficits Skin Exam: normal color, warm, dry SpO2 Interpretation: normal SpO2: 90 O2 Delivery: Room Air - Nursing Vital Signs Nursing Vital Signs: Initial Vital Signs Temperature 97.6 F 04/04/21 17:58 Pulse Rate 78 04/04/21 17:58 Respiratory Rate 18 04/04/21 17:58 Blood Pressure 159/76 04/04/21 17:58 O2 Sat by Pulse Oximetry 90 L 04/04/21 17:58 Pain Scale Pain Intensity 5 - Course Nursing assessment & vital signs reviewed: Yes EKG Interpreted by Me: RATE (70), NORMAL AXIS, NORMAL INTERVALS, Non-specific ST Changes, Other (Poor R wave progression and nonspecific ST-T wave changes) - Radiology Exams Chest X-ray Interpretation: Interpreted by me, Other (X-ray shows a large amount of subcu air the left anterior chest) Ordered Tests: Active Orders 24 hr Category Date Time Status Clean Catch Urine Specimen STAT Care 04/04/21 17:59 Active EKG-ER Only STAT Care 04/04/21 17:59 Active IV Insertion STAT Care 04/04/21 17:59 Active ABDOMEN AND PELVIS W CONTRAST [CT] Stat Exams 04/04/21 19:32 Ordered CHEST 1 VIEW (PORTABLE) Stat Exams 04/04/21 18:00 Taken CHEST WITH CONTRAST [CT] Stat Exams 04/04/21 19:32 Ordered CHEST WITHOUT CONTRAST [CT] Stat Exams 04/04/21 17:59 Taken HEAD WITHOUT CONTRAST [CT] Stat Exams 04/04/21 19:13 Taken NECK WO CONTRAST [CT] Stat Exams 04/04/21 19:13 Taken AMYLASE Stat Lab 04/04/21 18:05 Completed CBC W DIFF Stat Lab 04/04/21 18:05 Completed CMP Stat Lab 04/04/21 18:05 Completed ETHYL ALCOHOL Stat Lab 04/04/21 18:05 Completed LIPASE Stat Lab 04/04/21 18:05 Completed PROTIME WITH INR Stat Lab 04/04/21 18:05 Completed TROPONIN Q3H Lab 04/04/21 18:15 Completed TROPONIN Q3H Lab 04/04/21 21:15 Ordered UA W/RFX UR CULTURE Stat Lab 04/04/21 17:59 Ordered Urine Triage Profile Stat Lab 04/04/21 17:59 Ordered VENOUS BLOOD GAS Stat Lab 04/04/21 19:33 Completed Transfer Order Routine Transfer 04/04/21 Ordered Medication Summary Generic Name Dose Route Start Last Admin Trade Name Rika PRN Reason Stop Dose Admin Sodium Chloride 500 mls @ 100 drops/sec 04/04/21 19:15 Sodium Chloride 3% Hypertonic IV 05/04/21 19:14 .Q2M VERNA Discontinued Medications Generic Name Dose Route Start Last Admin Trade Name Rika PRN Reason Stop Dose Admin Fentanyl Citrate 50 mcg 04/04/21 19:39 Fentanyl Citrate 100 Mcg/2 Ml* Vial IV 04/04/21 19:40 STAT ONE Sodium Chloride 1,000 mls @ 999 mls/hr 04/04/21 18:40 04/04/21 18:58 Sodium Chloride 0.9% 1000 Ml IV 04/04/21 19:40 999 mls/hr .Q1H1M STA Administration Sodium Chloride Confirm 04/04/21 18:50 Sodium Chloride 0.9% 1000 Ml Administered 04/04/21 18:51 Dose 1,000 mls @ ud .ROUTE .K-MED ONE Lab/Rad Data: Laboratory Result Diagrams 04/04/21 18:05 04/04/21 18:05 Laboratory Results 04/04/21 04/04/21 04/04/21 Range/Units 19:33 18:15 18:05 WBC (4.0-10.5) K/mm3 RBC (4.1-5.6) M/mm3 Hgb (12.5-18.0) gm/dl Hct (42-50) % MCV (78-100) fl MCH (26-32) pg MCHC (32-36) g/dl RDW (11.5-14.0) % Plt Count (150-450) K/mm3 MPV (7.5-11.0) fl Gran % (36.0-66.0) % Eos # (Auto) (0-0.5) Absolute Lymphs (auto) (1.0-4.6) Absolute Monos (auto) (0.0-1.3) Lymphocytes % (24.0-44.0) % Monocytes % (0.0-12.0) % Eosinophils % (0.00-5.0) % Basophils % (0.0-0.4) % Absolute Granulocytes (1.4-6.9) Basophils # (0-0.4) PT 13.4 H (9.4-12.5) SECONDS INR 1.14 (0.8-3.0) pO2/FiO2 Ratio 100.0 % VBG pH 7.42 (7.32-7.42) VBG pCO2 at Pat Temp 46 (42-55) mm/Hg VBG pO2 at Pat Temp 60 H (25-40) mm/Hg VBG HCO3 29.8 H* (22-28) meq/L VBG O2 Sat (Sagar) 93.9 L (95-100) VBG Base Excess 4.5 H (-2.0-2.0) VBG Hemoglobin 13.9 VBG Carboxyhemoglobin 5.7 (0.0-6.9) % T HGB POC Potassium 3.9 (3.5-5.1) Sodium (137-145) mmol/L Potassium (3.5-5.1) mmol/L Chloride (98-107) mmol/L Carbon Dioxide (22-30) mmol/L Anion Gap (5-15) MEQ/L BUN (9-20) mg/dL Creatinine (0.66-1.25) mg/dL Estimated GFR ML/MIN Glucose (74-106) mg/dL Calcium (8.4-10.2) mg/dL Total Bilirubin (0.2-1.3) mg/dL AST (17-59) U/L ALT (0-50) U/L Alkaline Phosphatase (38-126) U/L Troponin I < 0.012 (0.000-0.034) ng/mL Serum Total Protein (6.3-8.2) g/dL Albumin (3.5-5.0) g/dL Amylase (30-110) U/L Lipase (23-300) U/L Ethyl Alcohol (0-10) mg/dL 04/04/21 04/04/21 Range/Units 18:05 18:05 WBC 16.2 H (4.0-10.5) K/mm3 RBC 4.63 (4.1-5.6) M/mm3 Hgb 13.8 (12.5-18.0) gm/dl Hct 39.2 L (42-50) % MCV 84.7 (78-100) fl MCH 29.8 (26-32) pg MCHC 35.2 (32-36) g/dl RDW 12.8 (11.5-14.0) % Plt Count 251 (150-450) K/mm3 MPV 9.7 (7.5-11.0) fl Gran % 82.9 H (36.0-66.0) % Eos # (Auto) 0.02 (0-0.5) Absolute Lymphs (auto) 1.22 (1.0-4.6) Absolute Monos (auto) 1.52 H (0.0-1.3) Lymphocytes % 7.5 L (24.0-44.0) % Monocytes % 9.4 (0.0-12.0) % Eosinophils % 0.1 (0.00-5.0) % Basophils % 0.1 (0.0-0.4) % Absolute Granulocytes 13.40 H (1.4-6.9) Basophils # 0.01 (0-0.4) PT (9.4-12.5) SECONDS INR (0.8-3.0) pO2/FiO2 Ratio % VBG pH (7.32-7.42) VBG pCO2 at Pat Temp (42-55) mm/Hg VBG pO2 at Pat Temp (25-40) mm/Hg VBG HCO3 (22-28) meq/L VBG O2 Sat (Sagar) (95-100) VBG Base Excess (-2.0-2.0) VBG Hemoglobin VBG Carboxyhemoglobin (0.0-6.9) % T HGB POC Potassium (3.5-5.1) Sodium 115 L* (137-145) mmol/L Potassium 3.9 (3.5-5.1) mmol/L Chloride 76 L (98-107) mmol/L Carbon Dioxide 29 (22-30) mmol/L Anion Gap 14.0 (5-15) MEQ/L BUN 15 (9-20) mg/dL Creatinine 0.72 (0.66-1.25) mg/dL Estimated GFR > 60.0 ML/MIN Glucose 131 H (74-106) mg/dL Calcium 8.8 (8.4-10.2) mg/dL Total Bilirubin 1.70 H (0.2-1.3) mg/dL AST 107 H (17-59) U/L ALT 47 (0-50) U/L Alkaline Phosphatase 99 (38-126) U/L Troponin I (0.000-0.034) ng/mL Serum Total Protein 7.7 (6.3-8.2) g/dL Albumin 4.4 (3.5-5.0) g/dL Amylase 49 (30-110) U/L Lipase 72 (23-300) U/L Ethyl Alcohol < 10 (0-10) mg/dL - Progress Progress Note: 04/04/21 19:27 Patient care transferred to [place] by Dr. Watts. 04/04/21 19:40 The patient is awake and alert but is not oriented to place he can tell me he is in a hospital but he seems to be a poor historian. He appears to have a wound to his right lower extremity in addition to bruising to the left lower quadrant of his abdomen. He apparently has been treated for cellulitis. I have ordered a head CT, cervical spine CT and follow-up chest abdomen pelvis CT with contrast. Critical care transportation is currently be arranged to take him to [facility][1]. He has been accepted by Dr. Crow, trauma surgery and Dr. Watts spoke to the trauma surgeon to arrange patient transfer prior to [facility] excepting patient care. At this time, the patient is on a nonrebreather and appears to have a 20% left-sided pneumothorax with a left first and fourth rib fracture. (BIANKA MOSLEY) - Departure Departure Disposition: Transfer Critical Care Time: Yes Critical Care Time(excluding separately billable procedures): Critical 30-74 mi ns (70) - Departure Clinical Impression: Pneumothorax, left, Hyponatremia Condition: Fair
[2021-04-04 18:24] LABS: BASOPHIL % 0.1 % (0.0-0.4); Basophil (Absolute #) 0.01 (0-0.4); Eosinophil % 0.1 % (0.00-5.0); Eosinophil (Absolute #) 0.02 (0-0.5); Hematocrit 39.2 % (42-50); Hemoglobin 13.8 gm/dl (12.5-18.0); Lymphocyte (Absolute #) 1.22 (1.0-4.6); Lymphocytes % 7.5 % (24.0-44.0); Mean Cell Volume 84.7 fl (78-100); Mean Corpuscular Hemoglobin 29.8 pg (26-32); Mean Corpuscular Hgb Concent. 35.2 g/dl (32-36); Mean Platelet Volume 9.7 fl (7.5-11.0); Monocyte (Absolute #) 1.52 (0.0-1.3); Monocytes % 9.4 % (0.0-12.0); Neutrophil % 82.9 % (36.0-66.0); Platelet Count 251 K/mm3 (150-450); Red Blood Count 4.63 M/mm3 (4.1-5.6); Red Cell Distribution Width 12.8 % (11.5-14.0); White Blood Count 16.2 K/mm3 (4.0-10.5)
[2021-04-04 18:27] LABS: INR 1.14 (0.8-3.0); PROTIME 13.4 SECONDS (9.4-12.5)
[2021-04-04 18:33] LABS: ALBUMIN 4.4 g/dL (3.5-5.0); ALKALINE PHOSPHATASE 99 U/L (38-126); AMYLASE 49 U/L (30-110); BLOOD UREA NITROGEN 15 mg/dL (9-20); CHLORIDE 76 mmol/L (98-107); Calcium 8.8 mg/dL (8.4-10.2); Carbon Dioxide 29 mmol/L (22-30); Creatinine 1 0.72 mg/dL (0.66-1.25); EST GLOMERULAR FILTRATION RATE > 60.0 ML/MIN; ETHYL ALCOHOL < 10 mg/dL (0-10); Glucose 131 mg/dL (74-106); LIPASE 72 U/L (23-300); Potassium 3.9 mmol/L (3.5-5.1); SGOT/AST 107 U/L (17-59); SGPT/ALT 47 U/L (0-50); Total Protein 7.7 g/dL (6.3-8.2)
[2021-04-04 18:38] LABS: SODIUM 115 mmol/L (137-145)
[2021-04-04] MEDS ORDERED: Sodium Chloride 0.9% 1000 ML 1,000 ML IV STA (18:40)
[2021-04-04] MEDS ORDERED: Sodium Chloride 0.9% 1000 ML 1,000 ML ONE (18:50)
[2021-04-04 19:38] LABS: VBG BASE EXCESS 4.5 (-2.0-2.0); VBG CARBOXYHEMOGLOBIN 5.7 % T HGB (0.0-6.9); VBG HCO3- 29.8 meq/L (22-28); VBG HEMOGLOBIN 13.9; VBG O2 SATURATION 93.9 (95-100); VBG POTASSIUM 3.9 (3.5-5.1); VBG pH 7.42 (7.32-7.42)
[2021-04-04 19:38] LABS: INFLUENZA A NEGATIVE (NEGATIVE); INFLUENZA B NEGATIVE (NEGATIVE); RESPIRATORY SYNCTIAL VIRUS NEGATIVE (Negative); SARS-CoV-2 Xpert Express NEGATIVE (NEGATIVE)
[2021-04-04] MEDS ORDERED: SUBLIMAZE 100 MCG/2 ML IV ONE ×2 (19:39→21:12)
[2021-04-04] MEDS ORDERED: Zosyn INJ 4.5 GM in Sodium Chloride 100ML MINI-BAG PLUS 100 ML IV ONE (19:50)
[2021-04-04 20:13] LABS: Slide Review 1 YES
[2021-04-04] MEDS ORDERED: SUBLIMAZE 100 MCG/2 ML ONE ×2 (20:27→21:24)
[2021-04-04] MEDS ORDERED: Sodium Chloride 100ML MINI-BAG PLUS 100 ML IV ONE (20:38)
[2021-04-04] MEDS ORDERED: Zosyn INJ IV ONE (20:39)
[2021-04-04 21:59] LABS: Appearance CLEAR (CLEAR); Bilirubin NEGATIVE (NEGATIVE); Blood NEGATIVE Ery/ul (0-5); Glucose NEGATIVE (NEGATIVE); Ketones SMALL (NEGATIVE); Leukocyte Esterase NEGATIVE (NEGATIVE); Mucus SLIGHT /HPF (NEGATIVE); Nitrite NEGATIVE (NEGATIVE); Protein,Urine Dip NEGATIVE (Negative); Specific Gravity 1.039 (1.005-1.025); Urobilinogen NEGATIVE mg/dL (0-1)
[2021-04-04 22:14] LABS: Amphetamine,Urine NEGATIVE (NEGATIVE); Barbiturate,Urine NEGATIVE (NEGATIVE); Benzodiazepine,Urine NEGATIVE (NEGATIVE); Cocaine,Urine NEGATIVE (NEGATIVE); Methadone,Urine NEGATIVE (NEGATIVE); Opiate,Urine NEGATIVE (NEGATIVE); PCP,Urine NEGATIVE (NEGATIVE); THC,Urine NEGATIVE (NEGATIVE)
[2021-04-04 23:14] VITALS: BP 147/84; PULSE 81; O2SAT 98
--- NOTE | 2021-04-05 09:14 | XRAY ---
Indication: Left chest pain. Cough and short of breath. Status post fall one day earlier. Multiple contiguous axial images obtained through the chest without contrast. Comparison: None Minimally displaced anterior left 1st rib and posterior left 4/5 with fractures. Additional tiny cortical fractures involving the anterior lateral left 3/4/5/9 ribs. Incidental old left 10 rib fracture. Subsequent 10-20% left pneumothorax without hemothorax. Also extensive diffuse left chest wall subcutaneous emphysema and crossing midline with minimal right anterior chest wall subcutaneous emphysema. The subcutaneous emphysema further extends into the left neck and lesser degree mediastinum. Heart not enlarged with scattered coronary calcifications. No pericardial effusion. Aorta is mildly arteriosclerotic without aneurysm. No pathologic mediastinal lymphadenopathy. Right upper lobe demonstrates small focus of peripheral pleural parenchymal fibrosis/scarring. Tiny right costophrenic angle and left base calcified granulomas. No suspicious pulmonary mass, nodule, infiltrate, or effusion. Remaining bony thorax intact. CT abdomen/pelvis reported separately. Impression: 1. Acute left rib fractures as detailed with small left pneumothorax. Extensive left chest wall and minimal right anterior chest wall subcutaneous emphysema with extension into the left neck and small pneumomediastinum. 2. Incidental right upper lobe pleural parenchymal fibrosis/scarring and calcified granulomas. Comment: Telephone report was given to ordering clinician Dr. Puga at 1918 hrs. on April 04, 2021.
--- NOTE | 2021-04-05 09:15 | XRAY ---
Indication: Left chest pain. Cough and short of breath. Status post fall one day earlier. Multiple contiguous axial images obtained through the chest using 80 cc Isovue 370 contrast. Comparison: Taken earlier in the day. Stable multifocal left acute rib fractures and old left 10 rib fracture. Again extensive diffuse left chest wall subcutaneous emphysema again extending right anterior chest wall, left neck, and mediastinum. Left pneumothorax appears diminished less than 10%. No new pneumothorax/hemothorax. Stable right upper lobe pleural parenchymal fibrosis/scarring and tiny bibasilar calcified granulomas. No new pulmonary mass, infiltrate, or consolidation. Heart not enlarged with stable coronary calcifications. No pericardial effusion. Aorta remains mildly arteriosclerotic without aneurysm/dissection. No pathologic mediastinal lymphadenopathy. Remaining bony thorax intact. CT neck/abdomen/pelvis reported separately. Impression: 1. Stable left rib fractures with diminished tiny left pneumothorax. Again extensive left chest wall and mild right anterior chest wall subcutaneous emphysema with extension into the left neck and small pneumomediastinum. 2. Stable incidental right upper lobe pleural parenchymal fibrosis/scarring and right base calcified granuloma. 3. No new abnormalities on this contrasted exam.
--- NOTE | 2021-04-05 09:16 | XRAY ---
Indication: Cough, short of breath, and left chest pain following fall one day earlier. Comparison: March 11, 2019. Portable chest demonstrates new diffuse left and small right chest wall subcutaneous emphysema. Remaining heart and lungs unremarkable with stable right base calcified granuloma. Bony thorax intact.
--- NOTE | 2021-04-05 09:20 | XRAY ---
Indication: Status post fall one day earlier. Multiple contiguous axial images obtained through the head without contrast. Comparison: None Age-appropriate global atrophy and minimal periventricular degenerative micro-ischemia bilaterally. No acute intracranial hemorrhage, abnormal extra-axial fluid collection, or mass effect. Fourth ventricle is midline without hydrocephalus. Rice-white matter differentiation preserved. Bony calvarium intact. Moderate mucosal thickening left maxillary sinus. Remaining visualized paranasal sinuses and mastoid air cells are clear. Incidental air seen in the retropharyngeal space further detailed on same-day CT neck. Impression: Nonacute senile brain. Incidental left maxillary sinus disease.
--- NOTE | 2021-04-05 09:27 | XRAY ---
Indication: Status post fall one day earlier. Multiple contiguous images obtained through the neck without contrast. Comparison: None Extensive bilateral chest wall subcutaneous emphysema and small pneumomediastinum further detailed on same-day CT chest exam. Subcutaneous emphysema further extends into the left neck. Small amount of emphysema extends into the retropharyngeal space and tracks along the left carotid artery. No suspicious fluid collection. Parotid and submandibular glands are bilaterally symmetric. No pathologic lymphadenopathy. Moderate scattered carotid calcifications left greater than right. Supra and infraglottic airway are widely patent. Patient is near edentulous. Left rib fractures reported separately. No suspicious bony lesions. Cervical spine demonstrates mild/moderate C3-C7 degenerative changes. Impression: 1. Moderate left neck subcutaneous emphysema further extending into the retropharyngeal space as detailed. 2. Scattered bilateral carotid arteriosclerotic calcifications and C3-C7 degenerative changes.
--- NOTE | 2021-04-05 09:33 | XRAY ---
Indication: Left chest pain following fall one day earlier. Multiple contiguous images obtained through the abdomen and pelvis using 80 cc Isovue 370 contrast. Comparison: None Study is degraded by respiration artifact throughout. CT chest reported separately. Extensive left chest wall subcutaneous emphysema further extends into the left back. Noncontrasted stomach and bowel loops appear nonobstructed. Mild diffuse scattered colonic fecal debris throughout. No free fluid/air. Gallbladder demonstrates tiny gallstones, greatest in the neck. Both kidneys demonstrate mild cortical thinning/scarring. 2.3 cm right mid renal exophytic cyst. Remaining liver, pancreas, spleen, adrenal glands, kidneys, ureters, and bladder are unremarkable. Extensive scattered vascular calcifications with bilateral common iliac stent grafts. No pathologic retroperitoneal lymphadenopathy. Osseous structures intact with minimal degenerative changes throughout the lumbar spine. Impression: 1. Diffuse respiration artifact. 2. Left chest and left back subcutaneous emphysema. 3. Tiny gallstones better evaluated with outpatient ultrasound. 4. Incidental mild diffuse fecal stasis, right renal cyst, and extensive arteriosclerotic calcifications.
== END 2021-04-05 00:25 | disposition short-term general hospital (02) ==
LOC: ED 17:56
DX: J93.83 Other pneumothorax (principal); E87.1 Hypo-osmolality and hyponatremia; W18.30XA Fall on same level, unspecified, initial encounter; Z91.81 History of falling; Y92.000 Kitchen of unspecified non-institutional (private) residence as the place of occurrence of the external cause; R06.02 Shortness of breath; I10 Essential (primary) hypertension; Z72.0 Tobacco use; Z79.899 Other long term (current) drug therapy
CPT/HCPCS: 0241U; 36000; 36415; 51702; 70450; 70490; 71045; 71250; 71260; 74177; 80053; 80307; 81001; 82150; 82805; 83690; 84484; 85025; 85610; 87040; 87086; 93005; 96374; 96376; 99285; 99291; G0480; 87077; 87186; 96375; J2543; J3010

== ENCOUNTER 2021-04-20 18:32 | Emergency (ER) | payer MEDICARE ==
--- NOTE | 2021-04-20 18:34 | ERPHSYRPT ---
- History of Present Illness Time Seen by Provider: 04/20/21 18:34 Allergies/Adverse Reactions: Penicillins Allergy (Verified 04/04/21 17:57) Home Medications: Aspirin EC 325 mg [Ecotrin 325 MG] 325 mg PO DAILY 02/18/19 [History] PANTOPRAZOLE 40 mg Tablet [Protonix 40MG Tablet] 40 mg PO QAM 02/18/19 [History] Hx Tetanus, Diphtheria Vaccination/Date Given: (unk) Hx Influenza Vaccination/Date Given: No Hx Pneumococcal Vaccination/Date Given: No Travel Risk - Vaccine Status Have you recieved a Covid-19 vaccination: No - Past Medical History Pertinent Past Medical History: Yes Neurological History: No Pertinent History ENT History: No Pertinent History Cardiac History: Hypertension Respiratory History: No Pertinent History Endocrine Medical History: No Pertinent History Musculoskeletal History: No Pertinent History GI Medical History: No Pertinent History History: No Pertinent History Psycho-Social History: No Pertinent History Male Reproductive Disorders: No Pertinent History Other Medical History: [place], Stent x 2 in right le and 1 in left femoral artery - Past Surgical History Past Surgical History: Yes Neuro Surgical History: No Pertinent History Cardiac: Vascular Surgery Respiratory: No Pertinent History Gastrointestinal: No Pertinent History Genitourinary: No Pertinent History Musculoskeletal: No Pertinent History Male Surgical History: No Pertinent History Other Surgical History: stent to tono femoral artery, caroditectomy - Social History Smoking Status: Current every day smoker How long have you smoked: years Exposure to second hand smoke: No Drug Use: none Patient Lives Alone: Yes - Departure Referrals: JANIE EDWARDS MD [Primary Care Provider] - Follow up/PCP as directed
--- NOTE | 2021-04-20 19:18 | ERPHSYRPT ---
- History of Present Illness Time Seen by Provider: 04/20/21 18:34 Source: patient Exam Limitations: clinical condition Physician History: This is a 70-year-old obese white male who has chronic lower leg issues including chronic venous stasis ulcer disease who presents to the emergency department because his niece, who cares for him, is concerned there is some hallucination issues with this patient. Upon arrival to the emergency department, the patient is mildly confused. He denies any head injury. He has no complaints of pain. He is not sure why he is actually here and does not want to be in the emergency department. He states he has no complaints. His wound care on his legs are being followed as an outpatient and a wound care clinic. He denies chest pain. He denies shortness of breath. He denies abdominal pain. Patient does have a history of hypertension. During the patient's last emergency room visit, he had a sodium level of 115. Timing/Duration: today Modifying Factors: Improves With: nothing Associated Symptoms: denies symptoms Allergies/Adverse Reactions: Penicillins Allergy (Verified 04/04/21 17:57) Home Medications: Aspirin EC 325 mg [Ecotrin 325 MG] 325 mg PO DAILY 02/18/19 [History] PANTOPRAZOLE 40 mg Tablet [Protonix 40MG Tablet] 40 mg PO QAM 02/18/19 [History] Hx Tetanus, Diphtheria Vaccination/Date Given: (unk) Hx Influenza Vaccination/Date Given: No Hx Pneumococcal Vaccination/Date Given: No Travel Risk - International Travel Have you traveled outside of the country in past 3 weeks: No - Coronavirus Screening Are you exhibiting any of the following symptoms?: No Close contact with a COVID-19 positive Pt in past 14-21 Days: No - Vaccine Status Have you recieved a Covid-19 vaccination: No - Review of Systems Constitutional: No Symptoms Eyes: No Symptoms Ears, Nose, & Throat: No Symptoms Respiratory: No Symptoms Cardiac: No Symptoms Abdominal/Gastrointestinal: No Symptoms Genitourinary Symptoms: No Symptoms Musculoskeletal: No Symptoms Skin: Other (Bilateral lower extremity chronic venous stasis ulcer disease) Neurological: Other (Hallucinations per patient's niece) Psychological: Hallucinations (Per patient's niece), No Suicidal Ideations, No Homicidal Ideations Endocrine: No Symptoms Hematologic/Lymphatic: No Symptoms Immunological/Allergic: No Symptoms All Other Systems: Reviewed and Negative - Past Medical History Pertinent Past Medical History: Yes Neurological History: No Pertinent History ENT History: No Pertinent History Cardiac History: Hypertension Respiratory History: No Pertinent History Endocrine Medical History: No Pertinent History Musculoskeletal History: No Pertinent History GI Medical History: No Pertinent History History: No Pertinent History Psycho-Social History: No Pertinent History Male Reproductive Disorders: No Pertinent History Other Medical History: [place], Stent x 2 in right le and 1 in left femoral artery - Past Surgical History Past Surgical History: Yes Neuro Surgical History: No Pertinent History Cardiac: Vascular Surgery Respiratory: No Pertinent History Gastrointestinal: No Pertinent History Genitourinary: No Pertinent History Musculoskeletal: No Pertinent History Male Surgical History: No Pertinent History Other Surgical History: stent to tono femoral artery, caroditectomy - Social History Smoking Status: Current every day smoker How long have you smoked: years Exposure to second hand smoke: No Drug Use: none Patient Lives Alone: Yes - Nursing Vital Signs Nursing Vital Signs: Initial Vital Signs Temperature 98.2 F 04/20/21 19:36 Pulse Rate 87 04/20/21 19:36 Respiratory Rate 18 04/20/21 19:36 Blood Pressure 206/93 04/20/21 19:36 O2 Sat by Pulse Oximetry 95 04/20/21 19:36 Pain Scale Pain Intensity 5 - Physical Exam General Appearance: no apparent distress, alert Eye Exam: PERRL/EOMI, eyes nml inspection Ears, Nose, Throat Exam: normal ENT inspection, moist mucous membranes Neck Exam: normal inspection, non-tender, supple, full range of motion Respiratory Exam: normal breath sounds, lungs clear, airway intact, No chest tenderness, No respiratory distress Cardiovascular Exam: regular rate/rhythm, normal heart sounds, normal peripheral pulses Gastrointestinal/Abdomen Exam: soft, normal bowel sounds, No tenderness Rectal Exam: not done Back Exam: normal inspection, normal range of motion, No CVA tenderness, No vertebral tenderness Extremity Exam: normal inspection, normal range of motion, pelvis stable Neurologic Exam: alert, cooperative, community development aide II-XII nml as tested, normal mood/affect, nml cerebellar function, nml station & gait, sensation nml, other (Oriented to self and location) Skin Exam: other (Bilateral lower extremities are dry with chronic venous stasis disease. Bilateral lower extremities are wrapped.) Lymphatic Exam: No adenopathy SpO2 Interpretation: normal O2 Delivery: Room Air - Course Nursing assessment & vital signs reviewed: Yes Ordered Tests: Active Orders 24 hr Category Date Time Status EKG-ER Only STAT Care 04/20/21 21:27 Active IV Insertion STAT Care 04/20/21 19:23 Active CHEST 1 VIEW (PORTABLE) Stat Exams 04/20/21 20:21 Taken CHEST WITH CONTRAST [CT] Stat Exams 04/20/21 21:31 Taken HEAD WITHOUT CONTRAST [CT] Stat Exams 04/20/21 19:27 Taken BLOOD CULTURE Stat Lab 04/20/21 20:00 Ordered CBC W DIFF Stat Lab 04/20/21 20:05 Completed CMP Stat Lab 04/20/21 20:05 Completed D-DIMER QUANTITATIVE Stat Lab 04/20/21 20:05 Completed LIPASE Stat Lab 04/20/21 20:05 Completed Lactic Acid Stat Lab 04/20/21 19:23 Completed TROPONIN Q3H Lab 04/20/21 19:38 Completed TROPONIN Q3H Lab 04/21/21 00:30 Ordered TROPONIN Q3H Lab 04/21/21 03:30 Ordered TROPONIN Q3H Lab 04/21/21 06:30 Ordered TROPONIN Q3H Lab 04/21/21 09:30 Ordered UA W/RFX UR CULTURE Stat Lab 04/20/21 20:58 Completed Urine Triage Profile Stat Lab 04/20/21 20:58 Completed Medication Summary Discontinued Medications Generic Name Dose Route Start Last Admin Trade Name Rika PRN Reason Stop Dose Admin Acetaminophen 650 mg 04/20/21 22:13 04/20/21 22:20 Acetaminophen 325 Mg Tablet PO 04/20/21 22:14 650 mg STAT STA Administration Acetaminophen Confirm 04/20/21 22:18 Acetaminophen 325 Mg Tablet Administered 04/20/21 22:19 Dose 650 mg .ROUTE .STK-MED ONE Sodium Chloride 500 mls @ 500 mls/hr 04/20/21 19:29 04/20/21 20:40 Sodium Chloride 0.9% 500 Ml IV 04/20/21 20:28 Infused .Q1H ONE Infusion Sodium Chloride Confirm 04/20/21 19:31 Sodium Chloride 0.9% 500 Ml Administered 04/20/21 19:32 Dose 500 mls @ ud IV .STK-MED ONE Potassium Chloride 20 meq 04/20/21 23:19 04/20/21 23:59 Potassium Chloride 10 Meq Tablet PO 04/20/21 23:20 20 meq STAT ONE Administration Potassium Chloride Confirm 04/20/21 23:59 Potassium Chloride 10 Meq Tablet Administered 04/21/21 00:00 Dose 20 meq PO .STK-MED ONE Lab/Rad Data: Laboratory Result Diagrams 04/20/21 20:05 04/20/21 20:05 Laboratory Results 04/20/21 04/20/21 04/20/21 Range/Units 20:58 20:58 20:05 WBC (4.0-10.5) K/mm3 RBC (4.1-5.6) M/mm3 Hgb (12.5-18.0) gm/dl Hct (42-50) % MCV (78-100) fl MCH (26-32) pg MCHC (32-36) g/dl RDW (11.5-14.0) % Plt Count (150-450) K/mm3 MPV (7.5-11.0) fl Gran % (36.0-66.0) % Eos # (Auto) (0-0.5) Absolute Lymphs (auto) (1.0-4.6) Absolute Monos (auto) (0.0-1.3) Lymphocytes % (24.0-44.0) % Monocytes % (0.0-12.0) % Eosinophils % (0.00-5.0) % Basophils % (0.0-0.4) % Absolute Granulocytes (1.4-6.9) Basophils # (0-0.4) D-Dimer 933 H* (215-500) ng/mL Sodium (137-145) mmol/L Potassium (3.5-5.1) mmol/L Chloride (98-107) mmol/L Carbon Dioxide (22-30) mmol/L Anion Gap (5-15) MEQ/L BUN (9-20) mg/dL Creatinine (0.66-1.25) mg/dL Estimated GFR ML/MIN Glucose (74-106) mg/dL Lactic Acid (0.4-2.0) Calcium (8.4-10.2) mg/dL Total Bilirubin (0.2-1.3) mg/dL AST (17-59) U/L ALT (0-50) U/L Alkaline Phosphatase (38-126) U/L Ammonia (9-30) umol/L Troponin I (0.000-0.034) ng/mL Serum Total Protein (6.3-8.2) g/dL Albumin (3.5-5.0) g/dL Lipase (23-300) U/L Urine Color YELLOW (YELLOW) Urine Appearance CLEAR (CLEAR) Urine pH 7.0 (5-6) Ur Specific [place] 1.006 (1.005-1.025) Urine Protein NEGATIVE (Negative) Urine Ketones NEGATIVE (NEGATIVE) Urine Blood NEGATIVE (0-5) [place]/ul Urine Nitrite NEGATIVE (NEGATIVE) Urine Bilirubin NEGATIVE (NEGATIVE) Urine Urobilinogen 2 (0-1) mg/dL Ur Leukocyte Esterase NEGATIVE (NEGATIVE) Urine WBC (Auto) NONE (0-5) /HPF Urine RBC (Auto) NONE (0-2) /HPF U Epithel Cells (Auto) NONE (FEW) /HPF Urine Bacteria (Auto) NONE SEEN (NEGATIVE) /HPF Urine Culture Reflexed NO (NO) Urine Glucose NEGATIVE (NEGATIVE) mg/dL Urine Opiates Level NEGATIVE (NEGATIVE) Ur Methadone NEGATIVE (NEGATIVE) Urine Barbiturates POSITIVE (NEGATIVE) Ur Phencyclidine (PCP) NEGATIVE (NEGATIVE) Urine Amphetamine NEGATIVE (NEGATIVE) U Benzodiazepine Level NEGATIVE (NEGATIVE) Urine Cocaine NEGATIVE (NEGATIVE) Urine Marijuana (THC) NEGATIVE (NEGATIVE) 04/20/21 04/20/21 04/20/21 Range/Units 20:05 20:05 20:05 WBC 10.9 H (4.0-10.5) K/mm3 RBC 4.24 (4.1-5.6) M/mm3 Hgb 12.8 (12.5-18.0) gm/dl Hct 37.5 L (42-50) % MCV 88.4 (78-100) fl MCH 30.2 (26-32) pg MCHC 34.1 (32-36) g/dl RDW 13.4 (11.5-14.0) % Plt Count 424 (150-450) K/mm3 MPV 9.2 (7.5-11.0) fl Gran % 67.7 H (36.0-66.0) % Eos # (Auto) 0.56 H (0-0.5) Absolute Lymphs (auto) 1.82 (1.0-4.6) Absolute Monos (auto) 1.13 (0.0-1.3) Lymphocytes % 16.6 L (24.0-44.0) % Monocytes % 10.3 (0.0-12.0) % Eosinophils % 5.1 H (0.00-5.0) % Basophils % 0.3 (0.0-0.4) % Absolute Granulocytes 7.40 H (1.4-6.9) Basophils # 0.03 (0-0.4) D-Dimer (215-500) ng/mL Sodium 126 L (137-145) mmol/L Potassium 3.3 L (3.5-5.1) mmol/L Chloride 84 L (98-107) mmol/L Carbon Dioxide 33 H (22-30) mmol/L Anion Gap 12.1 (5-15) MEQ/L BUN 13 (9-20) mg/dL Creatinine 0.74 (0.66-1.25) mg/dL Estimated GFR > 60.0 ML/MIN Glucose 103 (74-106) mg/dL Lactic Acid (0.4-2.0) Calcium 8.9 (8.4-10.2) mg/dL Total Bilirubin 0.70 (0.2-1.3) mg/dL AST 32 (17-59) U/L ALT 34 (0-50) U/L Alkaline Phosphatase 189 H (38-126) U/L Ammonia < 9 L (9-30) umol/L Troponin I (0.000-0.034) ng/mL Serum Total Protein 7.4 (6.3-8.2) g/dL Albumin 4.0 (3.5-5.0) g/dL Lipase 106 (23-300) U/L Urine Color (YELLOW) Urine Appearance (CLEAR) Urine pH (5-6) Ur Specific [place] (1.005-1.025) Urine Protein (Negative) Urine Ketones (NEGATIVE) Urine Blood (0-5) [place]/ul Urine Nitrite (NEGATIVE) Urine Bilirubin (NEGATIVE) Urine Urobilinogen (0-1) mg/dL Ur Leukocyte Esterase (NEGATIVE) Urine WBC (Auto) (0-5) /HPF Urine RBC (Auto) (0-2) /HPF U Epithel Cells (Auto) (FEW) /HPF Urine Bacteria (Auto) (NEGATIVE) /HPF Urine Culture Reflexed (NO) Urine Glucose (NEGATIVE) mg/dL Urine Opiates Level (NEGATIVE) Ur Methadone (NEGATIVE) Urine Barbiturates (NEGATIVE) Ur Phencyclidine (PCP) (NEGATIVE) Urine Amphetamine (NEGATIVE) U Benzodiazepine Level (NEGATIVE) Urine Cocaine (NEGATIVE) Urine Marijuana (THC) (NEGATIVE) 04/20/21 04/20/21 Range/Units 19:38 19:23 WBC (4.0-10.5) K/mm3 RBC (4.1-5.6) M/mm3 Hgb (12.5-18.0) gm/dl Hct (42-50) % MCV (78-100) fl MCH (26-32) pg MCHC (32-36) g/dl RDW (11.5-14.0) % Plt Count (150-450) K/mm3 MPV (7.5-11.0) fl Gran % (36.0-66.0) % Eos # (Auto) (0-0.5) Absolute Lymphs (auto) (1.0-4.6) Absolute Monos (auto) (0.0-1.3) Lymphocytes % (24.0-44.0) % Monocytes % (0.0-12.0) % Eosinophils % (0.00-5.0) % Basophils % (0.0-0.4) % Absolute Granulocytes (1.4-6.9) Basophils # (0-0.4) D-Dimer (215-500) ng/mL Sodium (137-145) mmol/L Potassium (3.5-5.1) mmol/L Chloride (98-107) mmol/L Carbon Dioxide (22-30) mmol/L Anion Gap (5-15) MEQ/L BUN (9-20) mg/dL Creatinine (0.66-1.25) mg/dL Estimated GFR ML/MIN Glucose (74-106) mg/dL Lactic Acid 0.9 (0.4-2.0) Calcium (8.4-10.2) mg/dL Total Bilirubin (0.2-1.3) mg/dL AST (17-59) U/L ALT (0-50) U/L Alkaline Phosphatase (38-126) U/L Ammonia (9-30) umol/L Troponin I < 0.012 (0.000-0.034) ng/mL Serum Total Protein (6.3-8.2) g/dL Albumin (3.5-5.0) g/dL Lipase (23-300) U/L Urine Color (YELLOW) Urine Appearance (CLEAR) Urine pH (5-6) Ur Specific [place] (1.005-1.025) Urine Protein (Negative) Urine Ketones (NEGATIVE) Urine Blood (0-5) [place]/ul Urine Nitrite (NEGATIVE) Urine Bilirubin (NEGATIVE) Urine Urobilinogen (0-1) mg/dL Ur Leukocyte Esterase (NEGATIVE) Urine WBC (Auto) (0-5) /HPF Urine RBC (Auto) (0-2) /HPF U Epithel Cells (Auto) (FEW) /HPF Urine Bacteria (Auto) (NEGATIVE) /HPF Urine Culture Reflexed (NO) Urine Glucose (NEGATIVE) mg/dL Urine Opiates Level (NEGATIVE) Ur Methadone (NEGATIVE) Urine Barbiturates (NEGATIVE) Ur Phencyclidine (PCP) (NEGATIVE) Urine Amphetamine (NEGATIVE) U Benzodiazepine Level (NEGATIVE) Urine Cocaine (NEGATIVE) Urine Marijuana (THC) (NEGATIVE) - Progress Progress: improved, pain not gone completely, re-examined Progress Note: 04/20/21 20:36 CAT scan of the head without contrast is negative compared to the 04/04/2021 CAT scan of the head. Chest x-ray shows no acute cardiopulmonary processes 04/21/21 00:24 CAT scan of chest with contrast shows no pulmonary emboli. There is no evidence of any acute cardiopulmonary process. There are old rib fractures and manubrial fracture present. There is a pulmonary nodule present and this was discussed with the patient and this needs to be followed up on. 04/21/21 00:24 Counseled pt/family regarding: lab results, diagnosis, need for follow-up, rad results - Departure Departure Disposition: Home Clinical Impression: Confusion Condition: Stable Critical Care Time: No Referrals: JANIE EDWARDS MD [Primary Care Provider] - Follow up/PCP as directed Additional Instructions: Take all your medication as prescribed. Follow-up with your primary care physician later this morning by phone to make arrangements for an outpatient appointment
[2021-04-20] MEDS ORDERED: Sodium Chloride 0.9% 500 ML 500 ML IV ONE ×2 (19:29→19:31)
[2021-04-20 20:21] LABS: Basophil (Absolute #) 0.03 (0-0.4); Eosinophil % 5.1 % (0.00-5.0); Eosinophil (Absolute #) 0.56 (0-0.5); Hematocrit 37.5 % (42-50); Hemoglobin 12.8 gm/dl (12.5-18.0); Lymphocyte (Absolute #) 1.82 (1.0-4.6); Lymphocytes % 16.6 % (24.0-44.0); Mean Cell Volume 88.4 fl (78-100); Mean Corpuscular Hemoglobin 30.2 pg (26-32); Mean Corpuscular Hgb Concent. 34.1 g/dl (32-36); Mean Platelet Volume 9.2 fl (7.5-11.0); Monocyte (Absolute #) 1.13 (0.0-1.3); Monocytes % 10.3 % (0.0-12.0); Neutrophil % 67.7 % (36.0-66.0); Platelet Count 424 K/mm3 (150-450); Red Blood Count 4.24 M/mm3 (4.1-5.6); Red Cell Distribution Width 13.4 % (11.5-14.0); White Blood Count 10.9 K/mm3 (4.0-10.5)
[2021-04-20 20:32] LABS: ALKALINE PHOSPHATASE 189 U/L (38-126); ANION GAP 12.1 MEQ/L (5-15); BLOOD UREA NITROGEN 13 mg/dL (9-20); CHLORIDE 84 mmol/L (98-107); Calcium 8.9 mg/dL (8.4-10.2); Carbon Dioxide 33 mmol/L (22-30); Creatinine 1 0.74 mg/dL (0.66-1.25); EST GLOMERULAR FILTRATION RATE > 60.0 ML/MIN; Glucose 103 mg/dL (74-106); LIPASE 106 U/L (23-300); Potassium 3.3 mmol/L (3.5-5.1); SGOT/AST 32 U/L (17-59); SGPT/ALT 34 U/L (0-50); SODIUM 126 mmol/L (137-145); Total Protein 7.4 g/dL (6.3-8.2)
[2021-04-20 21:31] LABS: Appearance CLEAR (CLEAR); Bilirubin NEGATIVE (NEGATIVE); Blood NEGATIVE Ery/ul (0-5); Glucose NEGATIVE (NEGATIVE); Ketones NEGATIVE (NEGATIVE); Leukocyte Esterase NEGATIVE (NEGATIVE); Nitrite NEGATIVE (NEGATIVE); Protein,Urine Dip NEGATIVE (Negative); Specific Gravity 1.006 (1.005-1.025); Urobilinogen 2 mg/dL (0-1)
[2021-04-20 21:33] LABS: Bacteria NONE SEEN /HPF (NEGATIVE)
[2021-04-20 21:45] LABS: Amphetamine,Urine NEGATIVE (NEGATIVE); Barbiturate,Urine POSITIVE (NEGATIVE); Benzodiazepine,Urine NEGATIVE (NEGATIVE); Cocaine,Urine NEGATIVE (NEGATIVE); Methadone,Urine NEGATIVE (NEGATIVE); Opiate,Urine NEGATIVE (NEGATIVE); PCP,Urine NEGATIVE (NEGATIVE); THC,Urine NEGATIVE (NEGATIVE)
[2021-04-20] MEDS ORDERED: TYLENOL 325 MG PO STA (22:13)
[2021-04-20] MEDS ORDERED: TYLENOL 325 MG ONE (22:18)
[2021-04-20 23:18] VITALS: BP 193/87; PULSE 80; O2SAT 94
[2021-04-20] MEDS ORDERED: Klor Con 10 MEQ PO ONE ×2 (23:19→23:59)
[2021-04-21] MEDS ORDERED: NORCO 5/325 MG PO ONE (00:23)
[2021-04-21] MEDS ORDERED: NORCO 5/325 MG ONE (00:32)
--- NOTE | 2021-04-21 08:45 | XRAY ---
Indication: Confusion. Recent fall. Multiple contiguous axial images obtained through the head without contrast. Comparison: April 04, 2021. There remains age-appropriate global atrophy and minimal periventricular degenerative micro-ischemia. No acute intracranial hemorrhage, abnormal extra-axial fluid collection, or mass effect. Fourth ventricle is midline without hydrocephalus. Bony calvarium intact. Moderate mucosal thickening of both ethmoid and left maxillary sinuses. Mastoid air cells are clear. Impression: Continued nonacute senile brain. Incidental paranasal sinus disease.
--- NOTE | 2021-04-21 08:59 | XRAY ---
Indication: Short of breath. Elevated d-dimer and WBC. Multiple contiguous axial images obtained through the chest using 80 cc Isovue 370 contrast and PE protocol. Comparison: March 27, 2021. There is adequate opacification of the pulmonary arteries. No pulmonary embolus. Heart not enlarged. Aorta remains mildly arteriosclerotic without aneurysm/dissection. No pathologic mediastinal/hilar lymphadenopathy. Lungs demonstrate stable right upper lobe pleural parenchymal fibrosis/scarring. No suspicious pulmonary mass, infiltrate, effusion, or pneumothorax. Bony thorax again demonstrates left rib fractures without interval healing. Previous bilateral chest wall subcutaneous emphysema has markedly improved with minimal residual still present bilaterally. Limited upper abdomen again demonstrates tiny gallstones. Impression: 1. Negative pulmonary embolus. No new/acute cardiopulmonary abnormalities. 2. Improved chest wall subcutaneous emphysema with minimal residual. 3. Stable right upper lobe pleural parenchymal fibrosis/scarring, left rib fractures, and cholelithiasis. Comment: Preliminary interpretation made by [facility]. No critical discrepancy.
--- NOTE | 2021-04-21 09:01 | XRAY ---
Indication: Confusion. Hypoxia. Comparison: April 04, 2021. Portable chest remains clear with stable right upper lobe fibrosis/scarring. Heart not enlarged. Visualized bony thorax intact with near complete resolved subcutaneous emphysema. No new/acute abnormalities.
== END 2021-04-21 00:36 | disposition home or self-care (01) ==
LOC: ED 18:32
DX: R41.0 Disorientation, unspecified (principal); I87.8 Other specified disorders of veins; I10 Essential (primary) hypertension; I25.2 Old myocardial infarction; Z72.0 Tobacco use
CPT/HCPCS: 36000; 36415; 70450; 71045; 71260; 80053; 80307; 81001; 82140; 83605; 83690; 84484; 85025; 85379; 87040; 93005; 99284; A9270-GY

== ENCOUNTER 2021-05-07 20:08 | Observation (INO) | payer MEDICARE ==
--- NOTE | 2021-05-07 20:19 | ERPHSYRPT ---
- History of Present Illness Time Seen by Provider: 05/07/21 20:14 Historian: patient, family, EMS Exam Limitations: no limitations Physician History: pt has CAD hx and prior stents with some confusion past 2 weeks reported by family and chest pain which resolved en route. no N/V or fever. No trauma. abd soft nontender. chest bilateral rhonchi. being treated for COPD exacerbation by his DrClifton but did not fill the script yet. Timing/Duration: today, improved Activities at Onset: none Quality: burning, dullness, pressure Location: substernal Chest Pain Radiation: no radiation Severity of Pain-Max: moderate Severity of Pain-Current: none Modifying Factors: Improves With: nothing Associated Symptoms: denies symptoms Prior Chest Pain/Cardiac Workup: heart attack Nitro Today/Relief: no nitro taken today, complete relief Aspirin Treatment Today: 81 mg x 4, provided by EMS Allergies/Adverse Reactions: Penicillins Allergy (Verified 05/07/21 20:34) Home Medications: Aspirin EC 325 mg [Ecotrin 325 MG] 325 mg PO DAILY 02/18/19 [History] Cholecalciferol (Vitamin D3) [Vitamin D3] 1 cap PO DAILY 05/08/21 [History] Lisinopril/Hydrochlorothiazide [Lisinopril-Hctz 20-12.5 mg Tab] 1 tab PO DAILY 05/08/21 [History] Sodium Chloride 1 tab PO TID 05/08/21 [History] Hx Tetanus, Diphtheria Vaccination/Date Given: (unk) Hx Influenza Vaccination/Date Given: No Hx Pneumococcal Vaccination/Date Given: No Travel Risk - Vaccine Status Have you recieved a Covid-19 vaccination: No - Review of Systems Constitutional: No Fever, No Chills Eyes: No Symptoms Ears, Nose, & Throat: No Symptoms Respiratory: Cough, No Dyspnea Cardiac: Chest Pain, No Edema, No Syncope Abdominal/Gastrointestinal: No Abdominal Pain, No Nausea, No Vomiting, No Diarrhea Genitourinary Symptoms: No Dysuria Musculoskeletal: No Back Pain, No Neck Pain Skin: No Rash Neurological: No Dizziness, No Focal Weakness, No Sensory Changes Psychological: No Symptoms Endocrine: No Symptoms Hematologic/Lymphatic: No Symptoms Immunological/Allergic: No Symptoms All Other Systems: Reviewed and Negative - Past Medical History Pertinent Past Medical History: Yes Neurological History: No Pertinent History ENT History: No Pertinent History Cardiac History: Hypertension Respiratory History: No Pertinent History Endocrine Medical History: No Pertinent History Musculoskeletal History: No Pertinent History GI Medical History: No Pertinent History History: No Pertinent History Psycho-Social History: No Pertinent History Male Reproductive Disorders: No Pertinent History Other Medical History: CT, Stent x 2 in right le and 1 in left femoral artery - Past Surgical History Past Surgical History: Yes Neuro Surgical History: No Pertinent History Cardiac: Vascular Surgery Respiratory: No Pertinent History Gastrointestinal: No Pertinent History Genitourinary: No Pertinent History Musculoskeletal: No Pertinent History Male Surgical History: No Pertinent History Other Surgical History: stent to tono femoral artery, caroditectomy - Social History Smoking Status: Current every day smoker How long have you smoked: years Exposure to second hand smoke: No Drug Use: none Patient Lives Alone: Yes - Nursing Vital Signs Nursing Vital Signs: Initial Vital Signs Temperature 98.2 F 05/07/21 20:12 Pulse Rate 97 H 05/07/21 20:12 Respiratory Rate 16 05/07/21 20:12 Blood Pressure 197/90 05/07/21 20:12 O2 Sat by Pulse Oximetry 97 05/07/21 20:12 Pain Scale Pain Intensity 0 - Physical Exam General Appearance: no apparent distress, alert Eye Exam: PERRL/EOMI, eyes nml inspection Ears, Nose, Throat Exam: normal ENT inspection, moist mucous membranes Neck Exam: normal inspection, non-tender, supple, full range of motion Respiratory Exam: normal breath sounds, lungs clear, No respiratory distress Cardiovascular Exam: regular rate/rhythm, normal heart sounds Gastrointestinal/Abdomen Exam: soft, No tenderness, No mass Rectal Exam: deferred Back Exam: normal inspection, No CVA tenderness, No vertebral tenderness Extremity Exam: normal inspection, normal range of motion Neurologic Exam: alert, cooperative, normal mood/affect, sensation nml, disoriented, confusion, No motor deficits Skin Exam: normal color, warm, dry - Course Nursing assessment & vital signs reviewed: Yes EKG Interpreted by Me: Sinus Rhythm, Ischemic ST-T changes, Other (pvcs) - Radiology Exams Chest X-ray Interpretation: Reviewed by me, No Pneumothorax, Infiltrates (patchy) - CT Exams Chest CT Interpretation: Tele-radiologist Report, Other (no PE) Head CT Interpretation: Tele-radiologist Report, No/Intracranial Hemorrhag, Other (old cerebrovascular Dx; scalp growth) Ordered Tests: Active Orders 24 hr Category Date Time Status Brake Mechanic STAT Care 05/07/21 20:22 Active EKG-ER Only STAT Care 05/07/21 20:20 Active IV Insertion STAT Care 05/07/21 20:20 Active Pulse Oximetry (ED) STAT Care 05/07/21 20:20 Active CHEST 1 VIEW (PORTABLE) Stat Exams 05/07/21 20:21 Taken CHEST WITH CONTRAST [CT] Stat Exams 05/07/21 21:11 Taken HEAD WITHOUT CONTRAST [CT] Stat Exams 05/07/21 21:38 Taken CBC W DIFF Stat Lab 05/07/21 20:39 Completed CMP Stat Lab 05/07/21 20:39 Completed D-DIMER QUANTITATIVE Stat Lab 05/07/21 20:39 Completed LIPASE Stat Lab 05/07/21 20:39 Completed Lactic Acid Stat Lab 05/07/21 20:30 Completed NT PRO BNP Stat Lab 05/07/21 20:39 Completed TROPONIN Q3H Lab 05/07/21 20:39 Completed TROPONIN Q3H Lab 05/07/21 23:30 Ordered TROPONIN Q3H Lab 05/08/21 02:30 Ordered TROPONIN Q3H Lab 05/08/21 05:30 Ordered TROPONIN Q3H Lab 05/08/21 08:30 Ordered Respiratory Therapy Assessment DAILY RT 05/07/21 20:43 Active Medication Summary Generic Name Dose Route Start Last Admin Trade Name Freq PRN Reason Stop Dose Admin Sodium Chloride 1,000 mls @ 50 mls/hr 05/07/21 20:30 05/07/21 23:42 Sodium Chloride 0.9% 1000 Ml IV 06/06/21 20:29 50 mls/hr .Q20H VERNA Infusion Discontinued Medications Generic Name Dose Route Start Last Admin Trade Name Freq PRN Reason Stop Dose Admin Albuterol/Ipratropium 3 ml 05/07/21 20:23 05/07/21 20:42 Ipratropium/Albuterol Sulfate 3 Ml Ampul.Neb IH 05/07/21 20:24 3 ml STAT ONE Administration Albuterol/Ipratropium Confirm 05/07/21 20:28 Ipratropium/Albuterol Sulfate 3 Ml Ampul.Neb Administered 05/07/21 20:29 Dose 3 ml IH .STK-MED ONE Azithromycin 500 mg in 250 mls @ 250 mls/hr 05/07/21 21:02 05/08/21 00:27 Zithromax 500 Mg/ 250 Ml Nacl Premix IV 05/07/21 22:01 250 mls/hr STAT STA 250 mls/hr Administration Potassium Chloride 20 meq in 100 mls @ 50 mls/hr 05/07/21 21:12 05/07/21 22:23 Potassium Chloride 20 Meq In Water 100ml IV 05/07/21 23:11 50 mls/hr STAT ONE Administration Azithromycin Confirm 05/07/21 21:32 Zithromax 500 Mg/ 250 Ml Nacl Premix Administered 05/07/21 21:33 Dose 500 mg in 250 mls @ ud IV .STK-MED ONE Potassium Chloride Confirm 05/07/21 21:32 Potassium Chloride 20 Meq In Water 100ml Administered 05/07/21 21:33 Dose 100 mls @ ud IV .STK-MED ONE Potassium Bicarbonate 25 meq 05/07/21 21:12 05/07/21 21:33 Potassium Bicarbonate 25 Meq Tab PO 05/07/21 21:13 25 meq STAT ONE Administration Potassium Bicarbonate Confirm 05/07/21 21:32 Potassium Bicarbonate 25 Meq Tab Administered 05/07/21 21:33 Dose 25 meq .ROUTE .STK-MED ONE Lab/Rad Data: Laboratory Result Diagrams 05/07/21 20:39 05/07/21 20:39 Laboratory Results 05/07/21 05/07/21 05/07/21 Range/Units 20:39 20:39 20:39 WBC (4.0-10.5) K/mm3 RBC (4.1-5.6) M/mm3 Hgb (12.5-18.0) gm/dl Hct (42-50) % MCV (78-100) fl MCH (26-32) pg MCHC (32-36) g/dl RDW (11.5-14.0) % Plt Count (150-450) K/mm3 MPV (7.5-11.0) fl Gran % (36.0-66.0) % Eos # (Auto) (0-0.5) Absolute Lymphs (auto) (1.0-4.6) Absolute Monos (auto) (0.0-1.3) Lymphocytes % (24.0-44.0) % Monocytes % (0.0-12.0) % Eosinophils % (0.00-5.0) % Basophils % (0.0-0.4) % Absolute Granulocytes (1.4-6.9) Basophils # (0-0.4) D-Dimer 1475 H* (215-500) ng/mL Sodium 130 L (137-145) mmol/L Potassium 3.0 L* (3.5-5.1) mmol/L Chloride 82 L (98-107) mmol/L Carbon Dioxide 36 H (22-30) mmol/L Anion Gap 15.9 H (5-15) MEQ/L BUN 12 (9-20) mg/dL Creatinine 0.79 (0.66-1.25) mg/dL Estimated GFR > 60.0 ML/MIN Glucose 139 H (74-106) mg/dL Lactic Acid (0.4-2.0) Calcium 9.4 (8.4-10.2) mg/dL Total Bilirubin 0.80 (0.2-1.3) mg/dL AST 33 (17-59) U/L ALT 28 (0-50) U/L Alkaline Phosphatase 166 H (38-126) U/L Troponin I < 0.012 (0.000-0.034) ng/mL NT-Pro-B Natriuret Pep 1540 H (0-900) pg/mL Serum Total Protein 8.8 H (6.3-8.2) g/dL Albumin 4.7 (3.5-5.0) g/dL Lipase 135 (23-300) U/L 05/07/21 05/07/21 Range/Units 20:39 20:30 WBC 10.1 (4.0-10.5) K/mm3 RBC 4.85 (4.1-5.6) M/mm3 Hgb 14.4 (12.5-18.0) gm/dl Hct 42.8 (42-50) % MCV 88.2 (78-100) fl MCH 29.7 (26-32) pg MCHC 33.6 (32-36) g/dl RDW 14.0 (11.5-14.0) % Plt Count 313 (150-450) K/mm3 MPV 10.2 (7.5-11.0) fl Gran % 68.9 H (36.0-66.0) % Eos # (Auto) 0.21 (0-0.5) Absolute Lymphs (auto) 1.82 (1.0-4.6) Absolute Monos (auto) 1.09 (0.0-1.3) Lymphocytes % 18.0 L (24.0-44.0) % Monocytes % 10.8 (0.0-12.0) % Eosinophils % 2.1 (0.00-5.0) % Basophils % 0.2 (0.0-0.4) % Absolute Granulocytes 6.99 H (1.4-6.9) Basophils # 0.02 (0-0.4) D-Dimer (215-500) ng/mL Sodium (137-145) mmol/L Potassium (3.5-5.1) mmol/L Chloride (98-107) mmol/L Carbon Dioxide (22-30) mmol/L Anion Gap (5-15) MEQ/L BUN (9-20) mg/dL Creatinine (0.66-1.25) mg/dL Estimated GFR ML/MIN Glucose (74-106) mg/dL Lactic Acid 1.7 (0.4-2.0) Calcium (8.4-10.2) mg/dL Total Bilirubin (0.2-1.3) mg/dL AST (17-59) U/L ALT (0-50) U/L Alkaline Phosphatase (38-126) U/L Troponin I (0.000-0.034) ng/mL NT-Pro-B Natriuret Pep (0-900) pg/mL Serum Total Protein (6.3-8.2) g/dL Albumin (3.5-5.0) g/dL Lipase (23-300) U/L - Progress Progress: improved, re-examined Air Movement: good Progress Note: 05/07/21 21:39 relates that pt may be having cva tonight similar to a previous time due to confusion- will get CT head and do stroke scale and tele neuro 05/07/21 21:48 05/07/21 22:53 Stroke scale NIH of [address] reading and neuro consult pending. 05/08/21 00:41 Ct shows no PE and no acute CVA or bleed. Neuro recommends some labs and routine MRI/MRA with admission; discussed with pt, family and Dr. Sweeney and all agree to place the pt in and do neuro workup for his new encephalopathy. 05/08/21 00:44 Blood Culture(s) Obtained: No Antibiotics given: Yes Discussed with .: Rock Will see patient in: hospital (observation) Counseled pt/family regarding: lab results, diagnosis, need for follow-up, rad results - Departure Departure Disposition: Observation Clinical Impression: new encephalopathy, Scalp lesion, Cerebrovascular disease, Cirrhosis, COPD exacerbation, CAD (coronary artery disease) Condition: Good Critical Care Time: No Referrals: JANIE EDWARDS MD [Primary Care Provider] - Follow up/PCP as directed Instructions: Chronic Obstructive Pulmonary Disease
[2021-05-07] MEDS ORDERED: DUONEB 0.5-3 MG/3 ml Neb IH ONE ×2 (20:23→20:28)
[2021-05-07] MEDS ORDERED: Sodium Chloride 0.9% 1000 ML 1,000 ML IV SCH (20:30)
[2021-05-07 20:43] LABS: Absolute Neutrophil Ct (ANC) 6.99 (1.4-6.9); Basophil (Absolute #) 0.02 (0-0.4); Eosinophil % 2.1 % (0.00-5.0); Eosinophil (Absolute #) 0.21 (0-0.5); Hematocrit 42.8 % (42-50); Hemoglobin 14.4 gm/dl (12.5-18.0); Lymphocyte (Absolute #) 1.82 (1.0-4.6); Mean Cell Volume 88.2 fl (78-100); Mean Corpuscular Hemoglobin 29.7 pg (26-32); Mean Corpuscular Hgb Concent. 33.6 g/dl (32-36); Mean Platelet Volume 10.2 fl (7.5-11.0); Monocyte (Absolute #) 1.09 (0.0-1.3); Monocytes % 10.8 % (0.0-12.0); Neutrophil % 68.9 % (36.0-66.0); Platelet Count 313 K/mm3 (150-450); Red Blood Count 4.85 M/mm3 (4.1-5.6); White Blood Count 10.1 K/mm3 (4.0-10.5)
[2021-05-07] MEDS ORDERED: Zithromax 500 MG/ 250 ML NaCl Premix 500 MG/250 ML IVPB IV STA (21:02)
[2021-05-07 21:07] LABS: ALBUMIN 4.7 g/dL (3.5-5.0); ALKALINE PHOSPHATASE 166 U/L (38-126); ANION GAP 15.9 MEQ/L (5-15); BLOOD UREA NITROGEN 12 mg/dL (9-20); CHLORIDE 82 mmol/L (98-107); Calcium 9.4 mg/dL (8.4-10.2); Carbon Dioxide 36 mmol/L (22-30); Creatinine 1 0.79 mg/dL (0.66-1.25); EST GLOMERULAR FILTRATION RATE > 60.0 ML/MIN; Glucose 139 mg/dL (74-106); LIPASE 135 U/L (23-300); NT PRO BNP 1540 pg/mL (0-900); SGOT/AST 33 U/L (17-59); SGPT/ALT 28 U/L (0-50); SODIUM 130 mmol/L (137-145); Total Protein 8.8 g/dL (6.3-8.2)
[2021-05-07] MEDS ORDERED: K-LYTE 25 MEQ PO ONE (21:12)
[2021-05-07] MEDS ORDERED: POTASSIUM CHLORIDE 20 mEq IN WATER 100ML 100 ML IV ONE (21:32)
[2021-05-07] MEDS ORDERED: Zithromax 500 MG/ 250 ML NaCl Premix 500 MG/250 ML IVPB IV ONE (21:32)
[2021-05-07] MEDS ORDERED: K-LYTE 25 MEQ ONE (21:32)
[2021-05-07] MEDS: POTASSIUM CHLORIDE 20 mEq IN WATER 100ML 20 MEQ/100 ML BAG IV ONE ×2 (21:51→22:23)
[2021-05-08 02:51] LABS: INFLUENZA A NEGATIVE (NEGATIVE); INFLUENZA B NEGATIVE (NEGATIVE); RESPIRATORY SYNCTIAL VIRUS NEGATIVE (Negative); SARS-CoV-2 Xpert Express NEGATIVE (NEGATIVE)
[2021-05-08] MEDS ORDERED: TYLENOL 325 MG PO PRN (03:26)
[2021-05-08] MEDS ORDERED: Vitamins For Infusion 10 ML INJECTION*** 10 ML, THIAMINE 200 MG/2 ML*** 100 MG, FOLNATE... IV SCH ×4 (03:26)
[2021-05-08] MEDS ORDERED: HUMULIN R SQ PRN (03:26)
[2021-05-08] MEDS ORDERED: Sodium Chloride 0.9% 1000 ML 1,000 ML IV SCH (03:26)
[2021-05-08] MEDS: DUONEB 0.5-3 MG/3 ml Neb IH SCH ×4 (03:50→14:07)
[2021-05-08 05:25] LABS: Hematocrit 35.6 % (42-50); Hemoglobin 11.9 gm/dl (12.5-18.0); Mean Corpuscular Hemoglobin 29.8 pg (26-32); Mean Corpuscular Hgb Concent. 33.4 g/dl (32-36); Mean Platelet Volume 9.7 fl (7.5-11.0); Platelet Count 258 K/mm3 (150-450); Red Cell Distribution Width 13.8 % (11.5-14.0); White Blood Count 8.4 K/mm3 (4.0-10.5)
[2021-05-08 05:44] LABS: ANION GAP 10.4 MEQ/L (5-15); BLOOD UREA NITROGEN 9 mg/dL (9-20); CHLORIDE 89 mmol/L (98-107); Calcium 8.3 mg/dL (8.4-10.2); Carbon Dioxide 34 mmol/L (22-30); Creatinine 1 0.64 mg/dL (0.66-1.25); EST GLOMERULAR FILTRATION RATE > 60.0 ML/MIN; Glucose 107 mg/dL (74-106); SODIUM 131 mmol/L (137-145)
[2021-05-08 06:10] LABS: Potassium 2.7 mmol/L (3.5-5.1)
[2021-05-08] MEDS ORDERED: POTASSIUM CHLORIDE 20 mEq IN WATER 100ML 20 MEQ/100 ML BAG IV ONE (06:26)
[2021-05-08] MEDS: K-LYTE 25 MEQ PO ONE ×2 (06:39→06:45)
[2021-05-08] MEDS ORDERED: FOLNATE IV SCH ×7 (07:45)
[2021-05-08] MEDS ORDERED: [UNRECOGNIZED DRUG - OTHER] IV SCH (07:45)
[2021-05-08] MEDS ORDERED: [UNRECOGNIZED DRUG - OTHER] IV SCH ×6 (07:45)
[2021-05-08] MEDS ORDERED: K-LYTE 25 MEQ PO ONE (07:45)
[2021-05-08] MEDS ORDERED: SODIUM CHLORIDE 0.9% IV ONE (08:30)
[2021-05-08] MEDS ORDERED: THIAMINE IV ONE (08:30)
--- NOTE | 2021-05-08 09:08 | XRAY ---
Indication: Short of breath and cough. Elevated d-dimer. Multiple contiguous axial images obtained through the chest using 80 cc Isovue 370 contrast and PE protocol. Comparison: April 20, 2020. There is good opacification of the pulmonary arteries to include the lobar and segmental branches. Again no pulmonary embolus. Heart not enlarged. Aorta again mildly arteriosclerotic without aneurysm/dissection. No pathologic mediastinal/hilar lymphadenopathy. Lungs inflated with stable right upper lobe pleural parenchymal fibrosis/scarring and tiny right costophrenic angle calcified granuloma. No suspicious pulmonary mass, infiltrate, or effusion. Bony thorax intact with interval healing left rib fractures. Limited upper abdomen again demonstrates tiny gallstones. Impression: 1. Continued negative pulmonary embolus. No new/acute cardiopulmonary abnormalities. 2. Again incidental right upper lobe pleural parenchymal fibrosis/scarring, healing left rib fractures, cholelithiasis, and old granulomatous disease. Comment: Preliminary interpretation made by [facility]. No critical discrepancy.
--- NOTE | 2021-05-08 09:10 | XRAY ---
Indication: Short of breath. Cough. Comparison: April 20, 2021. Portable chest unchanged again demonstrating minimal right upper lobe fibrosis/scarring. Remaining heart and lungs unremarkable. No new/acute findings.
--- NOTE | 2021-05-08 09:10 | XRAY ---
Indication: Short of breath and cough. History stroke with new symptoms. Multiple contiguous axial images obtained through the head without contrast. Comparison: April 20, 2021. Stable age-appropriate global atrophy and minimal periventricular degenerative micro-ischemia. No acute intracranial hemorrhage, abnormal extra-axial fluid collection, or mass effect. Fourth ventricle is midline. Bony calvarium intact. Again mild mucosal thickening left maxillary sinus. Remaining paranasal sinuses and mastoid air cells are clear. Impression: Continued nonacute senile brain. Incidental paranasal sinus disease. Comment: Preliminary interpretation made by [facility]. No critical discrepancy.
[2021-05-08] MEDS ORDERED: VALIUM 10 MG/2 ML SYRINGE IM SCH (09:45)
[2021-05-08] MEDS ORDERED: THIAMINE 200 MG/2 ML IV SCH (10:00)
[2021-05-08] MEDS ORDERED: SODIUM BICARBONATE PO SCH (10:00)
[2021-05-08] MEDS ORDERED: ECOTRIN 81 MG PO SCH (10:00)
[2021-05-08] MEDS ORDERED: BABY ASPIRIN 81 MG CHEW PO SCH (10:00)
[2021-05-08] MEDS: Zestril 20 MG*** 20 MG, hydroDIURIL 25 MG*** 12.5 MG PO SCH ×2 (10:59)
[2021-05-08] MEDS: Lopressor 50 MG PO SCH ×2 (11:00→21:13)
[2021-05-08] MEDS: NON-FORMULARY ITEM PO SCH ×3 (11:00→21:13)
[2021-05-08] MEDS: Pepcid 20 MG VIAL IV SCH ×2 (11:01→21:13)
[2021-05-08] MEDS: VITAMIN D PO SCH (11:05)
[2021-05-08] MEDS: Ecotrin 325 MG PO SCH (11:05)
[2021-05-08] MEDS ORDERED: VALIUM 10 MG/2 ML SYRINGE IV ONE ×2 (11:14→12:57)
[2021-05-08] MEDS ORDERED: DUONEB 0.5-3 MG/3 ml Neb IH PRN (14:08)
--- NOTE | 2021-05-08 14:45 | XRAY ---
Indication: Encephalopathy. Multi slab 3-D [id number] MRA [place] performed. Comparison: None Distal internal carotid arteries are bilaterally symmetric without critical stenosis, obstruction, or AV malformation. Normal carotid terminus with normal branching A1 and M1 segments. More distal anterior cerebral, middle cerebral, anterior communicating, and posterior communicating arteries are normal in MRA appearance. Posterior circulation demonstrates dominant larger distal right vertebral artery. Remaining basilar, left/right posterior cerebral, left/right superior cerebellar, and left/right anterior inferior cerebellar arteries are normal in MRA appearance. Impression: Negative MRA [place].
[2021-05-08] MEDS ORDERED: SODIUM CHLORIDE 1 GM PO SCH (15:00)
[2021-05-08] MEDS ORDERED: [UNRECOGNIZED DRUG - OTHER] PO SCH (15:00)
[2021-05-08] MEDS: POTASSIUM CHLORIDE 20 mEq IN WATER 100ML 20 MEQ/100 ML BAG IV SCH ×2 (15:03→17:16)
[2021-05-08] MEDS: Nicoderm CQ 21 MG TOP SCH (15:10)
--- NOTE | 2021-05-08 16:19 | XRAY ---
Indication: Cerebrovascular disease. Two-dimensional sonogram and color Doppler imaging of the carotid arteries of the neck performed. Comparison: March 12, 2019. Examination of the right carotid circulation again demonstrates mild eccentric calcified plaquing in the common carotid artery and mild heterogeneous plaquing at the level of the bulb slightly extending to the origin of the internal/external carotid arteries. PSV of the CCA is 56 cm/s. PSV of the ICA is 199 cm/s. ICA/CCA ratio is 3.6. Normal antegrade vertebral artery flow. Examination of the left carotid circulation again demonstrates mild/moderate calcified plaquing at the level of the bulb extending to the origin of the internal/external carotid arteries. PSV of the CCA is 85 cm/s. PSV of the ICA is 180 cm/s. ICA/CCA ratio is 2.1. Normal antegrade vertebral artery flow. Impression: Again scattered arteriosclerotic plaquing bilaterally as detailed. Velocity measurements and ratios now favor 50-69% stenosis bilaterally.
--- NOTE | 2021-05-08 18:00 | PCM.HP ---
History of Present Illness - Chief Complaint Chief Complaint: confusion, shortness of breath and chest pain for 1-2 days History of Present Illness: is a 70 year old malecame to ER with c/o chest pain, shortness of breath for 2-3 days - Review of Systems Constitutional: No Fever, No Chills Eyes: No Symptoms Ears, Nose, & Throat: No Symptoms Respiratory: Cough, Orthopnea, Short Of Breath Cardiac: Chest Pain, No Edema, No Syncope Abdominal/Gastrointestinal: No Abdominal Pain, No Nausea, No Vomiting, No Diarrhea Genitourinary Symptoms: No Dysuria Musculoskeletal: No Back Pain, No Neck Pain Skin: No Rash Neurological: No Dizziness, No Focal Weakness, No Sensory Changes Psychological: No Symptoms Endocrine: No Symptoms Hematologic/Lymphatic: No Symptoms Immunological/Allergic: No Symptoms Medications & Allergies Home Medications: Home Medication List Aspirin EC 325 mg [Ecotrin 325 MG] 325 mg PO DAILY 02/18/19 [History Confirmed 05/08/21] Metoprolol Tartrate 50 mg [Lopressor 50 MG] 50 mg PO BID #60 tablet 03/12/19 [Rx Confirmed 05/08/21] Cholecalciferol (Vitamin D3) [Vitamin D3] 1 cap PO DAILY 05/08/21 [History Confirmed 05/08/21] Lisinopril/Hydrochlorothiazide [Lisinopril-Hctz 20-12.5 mg Tab] 1 tab PO DAILY 05/08/21 [History Confirmed 05/08/21] Sodium Chloride 1 tab PO TID 05/08/21 [History Confirmed 05/08/21] Allergies/Adverse Reactions: Allergies Allergy/AdvReac Type Severity Reaction Status Date / Time Penicillins Allergy Verified 05/07/21 20:34 - Past Medical History Past Medical History: Yes Neurological History: No Pertinent History ENT History: No Pertinent History Cardiac History: Hypertension Respiratory History: No Pertinent History Endocrine Medical History: No Pertinent History Musculoskelatal History: No Pertinent History GI Medical History: No Pertinent History History: No Pertinent History Pyscho-Social History: No Pertinent History Male Reproductive Disorders: No Pertinent History Comment: [place], Stent x 2 in right le and 1 in left femoral artery. Patient is a poor historian. History recalled from previous admission - Past Surgical History Past Surgical History: Yes Neuro Surgical History: No Pertinent History Cardiac History: Vascular Surgery Respiratory Surgery: No Pertinent History GI Surgical History: No Pertinent History Genitourinary Surgical Hx: No Pertinent History Musculskeletal Surgical Hx: No Pertinent History Male Surgical History: No Pertinent History Other Surgical History: stent to tono femoral artery, caroditectomy. Patient is a poor historian. History recalled from previous admission. - Social History Smoking Status: Current every day smoker How long have you smoked: years Exposure to second hand smoke: No Alcohol: None Drug Use: none - Physical Exam Vital Signs: Vital Signs - 24 hr Temp Pulse Pulse Resp BP BP Pulse Ox 05/08/21 16:00 97.9 F 65 14 136/73 95 05/08/21 12:00 98.1 F 66 16 143/54 92 L 05/08/21 11:18 75 22 05/08/21 08:00 97.8 F 77 18 126/76 90 L 05/08/21 04:13 98.0 F 76 22 145/75 96 05/08/21 03:50 76 20 96 05/08/21 03:02 73 28 H 147/60 96 05/08/21 02:12 73 16 145/64 94 L 05/08/21 01:09 76 16 185/95 96 05/08/21 00:00 80 18 172/117 92 L 05/07/21 23:00 81 18 130/101 94 L 05/07/21 22:32 92 H 18 165/80 96 05/07/21 21:09 78 16 194/76 94 L 05/07/21 20:43 79 16 97 05/07/21 20:20 96 05/07/21 20:12 98.2 F 97 H 68 16 197/90 97 General Appearance: no apparent distress, alert Neurologic Exam: alert, oriented x 3, cooperative, normal mood/affect, nml cerebellar function, nml station & gait, sensation nml, No motor deficits Eye Exam: PERRL/EOMI, eyes nml inspection Ears, Nose, Throat Exam: normal ENT inspection, TMs normal, pharynx normal, moist mucous membranes Neck Exam: normal inspection, non-tender, supple, full range of motion Respiratory Exam: diminished breath sounds, crackles/rales, rhonchi, wheezing, No respiratory distress Cardiovascular Exam: regular rate/rhythm, normal heart sounds, normal peripheral pulses Gastrointestinal/Abdomen Exam: soft, normal bowel sounds, No tenderness, No mass Back Exam: normal inspection, normal range of motion, No CVA tenderness, No vertebral tenderness Extremity Exam: normal inspection, normal range of motion, pelvis stable Skin Exam: normal color, warm, dry, No rash Wound Assessment: Skin/Wound Assessment Wound/Incision Assessment Start: 05/08/21 04:50 Text: Status: Active Freq: Q6H Protocol: Document 05/08/21 14:00 KN (Rec: 05/08/21 15:52 KN [id number]) Wound/Incision Assessment Right Lower Calf Wound Assessment Shift Assessment Wound Type cellulitis Wound Stage Non Pressure Wound Dressing Status Dry & Intact Drainage Amount None Comment dressing with coban cdi applied as OP by DR. Burroughs, his office notified to consult Wound Photo Photo Taken No Lymphatic Exam: No adenopathy Results - Labs Lab/Micro Results: Lab Results-Last 24 Hours 05/07/21 05/07/21 05/07/21 Range/Units 20:30 20:39 20:39 WBC 10.1 (4.0-10.5) K/mm3 RBC 4.85 (4.1-5.6) M/mm3 Hgb 14.4 (12.5-18.0) gm/dl Hct 42.8 (42-50) % MCV 88.2 (78-100) fl MCH 29.7 (26-32) pg MCHC 33.6 (32-36) g/dl RDW 14.0 (11.5-14.0) % Plt Count 313 (150-450) K/mm3 MPV 10.2 (7.5-11.0) fl Gran % 68.9 H (36.0-66.0) % Eos # (Auto) 0.21 (0-0.5) Absolute Lymphs (auto) 1.82 (1.0-4.6) Absolute Monos (auto) 1.09 (0.0-1.3) Lymphocytes % 18.0 L (24.0-44.0) % Monocytes % 10.8 (0.0-12.0) % Eosinophils % 2.1 (0.00-5.0) % Basophils % 0.2 (0.0-0.4) % Absolute Granulocytes 6.99 H (1.4-6.9) Basophils # 0.02 (0-0.4) D-Dimer (215-500) ng/mL Sodium 130 L (137-145) mmol/L Potassium 3.0 L* (3.5-5.1) mmol/L Chloride 82 L (98-107) mmol/L Carbon Dioxide 36 H (22-30) mmol/L Anion Gap 15.9 H (5-15) MEQ/L BUN 12 (9-20) mg/dL Creatinine 0.79 (0.66-1.25) mg/dL Estimated GFR > 60.0 ML/MIN Glucose 139 H (74-106) mg/dL Lactic Acid 1.7 (0.4-2.0) Calcium 9.4 (8.4-10.2) mg/dL Total Bilirubin 0.80 (0.2-1.3) mg/dL AST 33 (17-59) U/L ALT 28 (0-50) U/L Alkaline Phosphatase 166 H (38-126) U/L Ammonia (9-30) umol/L Troponin I (0.000-0.034) ng/mL NT-Pro-B Natriuret Pep 1540 H (0-900) pg/mL Serum Total Protein 8.8 H (6.3-8.2) g/dL Albumin 4.7 (3.5-5.0) g/dL Prealbumin (17.6-36.0) mg/dL Lipase 135 (23-300) U/L Vitamin B12 (239-931) pg/mL TSH 3rd Generation (0.47-4.68) mIU/L Influenza Type A Ag (NEGATIVE) Influenza Type B Ag (NEGATIVE) RSV (PCR) (Negative) SARS-CoV-2 (PCR) (NEGATIVE) 05/07/21 05/07/21 05/07/21 Range/Units 20:39 20:39 23:55 WBC (4.0-10.5) K/mm3 RBC (4.1-5.6) M/mm3 Hgb (12.5-18.0) gm/dl Hct (42-50) % MCV (78-100) fl MCH (26-32) pg MCHC (32-36) g/dl RDW (11.5-14.0) % Plt Count (150-450) K/mm3 MPV (7.5-11.0) fl Gran % (36.0-66.0) % Eos # (Auto) (0-0.5) Absolute Lymphs (auto) (1.0-4.6) Absolute Monos (auto) (0.0-1.3) Lymphocytes % (24.0-44.0) % Monocytes % (0.0-12.0) % Eosinophils % (0.00-5.0) % Basophils % (0.0-0.4) % Absolute Granulocytes (1.4-6.9) Basophils # (0-0.4) D-Dimer 1475 H* (215-500) ng/mL Sodium (137-145) mmol/L Potassium (3.5-5.1) mmol/L Chloride (98-107) mmol/L Carbon Dioxide (22-30) mmol/L Anion Gap (5-15) MEQ/L BUN (9-20) mg/dL Creatinine (0.66-1.25) mg/dL Estimated GFR ML/MIN Glucose (74-106) mg/dL Lactic Acid (0.4-2.0) Calcium (8.4-10.2) mg/dL Total Bilirubin (0.2-1.3) mg/dL AST (17-59) U/L ALT (0-50) U/L Alkaline Phosphatase (38-126) U/L Ammonia (9-30) umol/L Troponin I < 0.012 0.111 H* (0.000-0.034) ng/mL NT-Pro-B Natriuret Pep (0-900) pg/mL Serum Total Protein (6.3-8.2) g/dL Albumin (3.5-5.0) g/dL Prealbumin (17.6-36.0) mg/dL Lipase (23-300) U/L Vitamin B12 (239-931) pg/mL TSH 3rd Generation (0.47-4.68) mIU/L Influenza Type A Ag (NEGATIVE) Influenza Type B Ag (NEGATIVE) RSV (PCR) (Negative) SARS-CoV-2 (PCR) (NEGATIVE) 05/08/21 05/08/21 05/08/21 Range/Units 00:30 01:39 02:16 WBC (4.0-10.5) K/mm3 RBC (4.1-5.6) M/mm3 Hgb (12.5-18.0) gm/dl Hct (42-50) % MCV (78-100) fl MCH (26-32) pg MCHC (32-36) g/dl RDW (11.5-14.0) % Plt Count (150-450) K/mm3 MPV (7.5-11.0) fl Gran % (36.0-66.0) % Eos # (Auto) (0-0.5) Absolute Lymphs (auto) (1.0-4.6) Absolute Monos (auto) (0.0-1.3) Lymphocytes % (24.0-44.0) % Monocytes % (0.0-12.0) % Eosinophils % (0.00-5.0) % Basophils % (0.0-0.4) % Absolute Granulocytes (1.4-6.9) Basophils # (0-0.4) D-Dimer (215-500) ng/mL Sodium (137-145) mmol/L Potassium (3.5-5.1) mmol/L Chloride (98-107) mmol/L Carbon Dioxide (22-30) mmol/L Anion Gap (5-15) MEQ/L BUN (9-20) mg/dL Creatinine (0.66-1.25) mg/dL Estimated GFR ML/MIN Glucose (74-106) mg/dL Lactic Acid (0.4-2.0) Calcium (8.4-10.2) mg/dL Total Bilirubin (0.2-1.3) mg/dL AST (17-59) U/L ALT (0-50) U/L Alkaline Phosphatase (38-126) U/L Ammonia < 9 L (9-30) umol/L Troponin I 0.158 H* (0.000-0.034) ng/mL NT-Pro-B Natriuret Pep (0-900) pg/mL Serum Total Protein (6.3-8.2) g/dL Albumin (3.5-5.0) g/dL Prealbumin (17.6-36.0) mg/dL Lipase (23-300) U/L Vitamin B12 (239-931) pg/mL TSH 3rd Generation (0.47-4.68) mIU/L Influenza Type A Ag NEGATIVE (NEGATIVE) Influenza Type B Ag NEGATIVE (NEGATIVE) RSV (PCR) NEGATIVE (Negative) SARS-CoV-2 (PCR) NEGATIVE (NEGATIVE) 05/08/21 05/08/21 05/08/21 Range/Units 04:30 04:30 04:30 WBC 8.4 (4.0-10.5) K/mm3 RBC 4.00 L (4.1-5.6) M/mm3 Hgb 11.9 L (12.5-18.0) gm/dl Hct 35.6 L (42-50) % MCV 89.0 (78-100) fl MCH 29.8 (26-32) pg MCHC 33.4 (32-36) g/dl RDW 13.8 (11.5-14.0) % Plt Count 258 (150-450) K/mm3 MPV 9.7 (7.5-11.0) fl Gran % (36.0-66.0) % Eos # (Auto) (0-0.5) Absolute Lymphs (auto) (1.0-4.6) Absolute Monos (auto) (0.0-1.3) Lymphocytes % (24.0-44.0) % Monocytes % (0.0-12.0) % Eosinophils % (0.00-5.0) % Basophils % (0.0-0.4) % Absolute Granulocytes (1.4-6.9) Basophils # (0-0.4) D-Dimer (215-500) ng/mL Sodium (137-145) mmol/L Potassium (3.5-5.1) mmol/L Chloride (98-107) mmol/L Carbon Dioxide (22-30) mmol/L Anion Gap (5-15) MEQ/L BUN (9-20) mg/dL Creatinine (0.66-1.25) mg/dL Estimated GFR ML/MIN Glucose (74-106) mg/dL Lactic Acid (0.4-2.0) Calcium (8.4-10.2) mg/dL Total Bilirubin (0.2-1.3) mg/dL AST (17-59) U/L ALT (0-50) U/L Alkaline Phosphatase (38-126) U/L Ammonia (9-30) umol/L Troponin I 0.173 H* (0.000-0.034) ng/mL NT-Pro-B Natriuret Pep (0-900) pg/mL Serum Total Protein (6.3-8.2) g/dL Albumin (3.5-5.0) g/dL Prealbumin (17.6-36.0) mg/dL Lipase (23-300) U/L Vitamin B12 (239-931) pg/mL TSH 3rd Generation 1.410 (0.47-4.68) mIU/L Influenza Type A Ag (NEGATIVE) Influenza Type B Ag (NEGATIVE) RSV (PCR) (Negative) SARS-CoV-2 (PCR) (NEGATIVE) 05/08/21 05/08/21 05/08/21 Range/Units 04:30 04:30 04:30 WBC (4.0-10.5) K/mm3 RBC (4.1-5.6) M/mm3 Hgb (12.5-18.0) gm/dl Hct (42-50) % MCV (78-100) fl MCH (26-32) pg MCHC (32-36) g/dl RDW (11.5-14.0) % Plt Count (150-450) K/mm3 MPV (7.5-11.0) fl Gran % (36.0-66.0) % Eos # (Auto) (0-0.5) Absolute Lymphs (auto) (1.0-4.6) Absolute Monos (auto) (0.0-1.3) Lymphocytes % (24.0-44.0) % Monocytes % (0.0-12.0) % Eosinophils % (0.00-5.0) % Basophils % (0.0-0.4) % Absolute Granulocytes (1.4-6.9) Basophils # (0-0.4) D-Dimer (215-500) ng/mL Sodium 131 L (137-145) mmol/L Potassium 2.7 L* (3.5-5.1) mmol/L Chloride 89 L (98-107) mmol/L Carbon Dioxide 34 H (22-30) mmol/L Anion Gap 10.4 (5-15) MEQ/L BUN 9 (9-20) mg/dL Creatinine 0.64 L (0.66-1.25) mg/dL Estimated GFR > 60.0 ML/MIN Glucose 107 H (74-106) mg/dL Lactic Acid (0.4-2.0) Calcium 8.3 L (8.4-10.2) mg/dL Total Bilirubin (0.2-1.3) mg/dL AST (17-59) U/L ALT (0-50) U/L Alkaline Phosphatase (38-126) U/L Ammonia (9-30) umol/L Troponin I (0.000-0.034) ng/mL NT-Pro-B Natriuret Pep (0-900) pg/mL Serum Total Protein (6.3-8.2) g/dL Albumin (3.5-5.0) g/dL Prealbumin 12.57 L (17.6-36.0) mg/dL Lipase (23-300) U/L Vitamin B12 396 (239-931) pg/mL TSH 3rd Generation (0.47-4.68) mIU/L Influenza Type A Ag (NEGATIVE) Influenza Type B Ag (NEGATIVE) RSV (PCR) (Negative) SARS-CoV-2 (PCR) (NEGATIVE) 05/08/21 05/08/21 Range/Units 08:41 10:50 WBC (4.0-10.5) K/mm3 RBC (4.1-5.6) M/mm3 Hgb (12.5-18.0) gm/dl Hct (42-50) % MCV (78-100) fl MCH (26-32) pg MCHC (32-36) g/dl RDW (11.5-14.0) % Plt Count (150-450) K/mm3 MPV (7.5-11.0) fl Gran % (36.0-66.0) % Eos # (Auto) (0-0.5) Absolute Lymphs (auto) (1.0-4.6) Absolute Monos (auto) (0.0-1.3) Lymphocytes % (24.0-44.0) % Monocytes % (0.0-12.0) % Eosinophils % (0.00-5.0) % Basophils % (0.0-0.4) % Absolute Granulocytes (1.4-6.9) Basophils # (0-0.4) D-Dimer (215-500) ng/mL Sodium (137-145) mmol/L Potassium 2.9 L* (3.5-5.1) mmol/L Chloride (98-107) mmol/L Carbon Dioxide (22-30) mmol/L Anion Gap (5-15) MEQ/L BUN (9-20) mg/dL Creatinine (0.66-1.25) mg/dL Estimated GFR ML/MIN Glucose (74-106) mg/dL Lactic Acid (0.4-2.0) Calcium (8.4-10.2) mg/dL Total Bilirubin (0.2-1.3) mg/dL AST (17-59) U/L ALT (0-50) U/L Alkaline Phosphatase (38-126) U/L Ammonia (9-30) umol/L Troponin I 0.124 H* (0.000-0.034) ng/mL NT-Pro-B Natriuret Pep (0-900) pg/mL Serum Total Protein (6.3-8.2) g/dL Albumin (3.5-5.0) g/dL Prealbumin (17.6-36.0) mg/dL Lipase (23-300) U/L Vitamin B12 (239-931) pg/mL TSH 3rd Generation (0.47-4.68) mIU/L Influenza Type A Ag (NEGATIVE) Influenza Type B Ag (NEGATIVE) RSV (PCR) (Negative) SARS-CoV-2 (PCR) (NEGATIVE) - Radiology Impressions Radiology Exams & Impressions: Radiology Procedures Category Date Time Status CAROTID BILATERAL [US] Routine Exams 05/08/21 15:28 Completed CHEST 1 VIEW (PORTABLE) Stat Exams 05/07/21 20:21 Completed CHEST WITH CONTRAST [CT] Stat Exams 05/07/21 21:11 Completed HEAD WITHOUT CONTRAST [CT] Stat Exams 05/07/21 21:38 Completed MRA BRAIN WITHOUT CONTRAST [MRI] Routine Exams 05/08/21 03:26 Completed - Other Procedures and Tests Respiratory Therapy 05/07/21 20:43 Respiratory Therapy Assessment DAILY 05/08/21 03:59 Oxygen Nasal Cannula 2 lpm Assessment/Plan (1) Chest pain due to CAD Current Visit: Yes Status: Acute Assessment & Plan: Chief Complaint Diagnosis encephalopathy Allergies Allergy/AdvReac Type Severity Reaction Status Date / Time Penicillins Allergy Verified 05/07/21 20:34 Vital Signs (Last 24 hours) Temp Pulse Pulse Resp BP BP Pulse Ox 05/08/21 16:00 97.9 F 65 14 136/73 95 05/08/21 12:00 98.1 F 66 16 143/54 92 L 05/08/21 11:18 75 22 05/08/21 08:00 97.8 F 77 18 126/76 90 L 05/08/21 04:13 98.0 F 76 22 145/75 96 05/08/21 03:50 76 20 96 05/08/21 03:02 73 28 H 147/60 96 05/08/21 02:12 73 16 145/64 94 L 05/08/21 01:09 76 16 185/95 96 05/08/21 00:00 80 18 172/117 92 L 05/07/21 23:00 81 18 130/101 94 L 05/07/21 22:32 92 H 18 165/80 96 05/07/21 21:09 78 16 194/76 94 L 05/07/21 20:43 79 16 97 05/07/21 20:20 96 05/07/21 20:12 98.2 F 97 H 68 16 197/90 97 Home Medications Medication Instructions Recorded Confirmed Last Taken Type Cholecalciferol (Vitamin D3) 1 cap PO DAILY 05/08/21 05/08/21 Unknown History [Vitamin D3] Lisinopril/Hydrochlorothiazide 1 tab PO DAILY 05/08/21 05/08/21 Unknown History [Lisinopril-Hctz 20-12.5 mg Tab] Sodium Chloride 1 tab PO TID 05/08/21 05/08/21 Unknown History Current Medications Generic Name Dose Route Start Last Admin Trade Name Freq PRN Reason Stop Dose Admin Acetaminophen 650 mg 05/08/21 03:26 Acetaminophen 325 Mg Tablet PO 06/07/21 03:25 Q4H PRN PRN PAIN AND/OR FEVER Albuterol/Ipratropium 3 ml 05/08/21 14:08 Ipratropium/Albuterol Sulfate 3 Ml Ampul.Neb IH 06/07/21 14:07 Q4HPRN PRN SHORTNESS OF BREATH Aspirin 325 mg 05/08/21 10:00 05/08/21 11:05 Aspirin 325 Mg Tablet.Ec PO 06/07/21 09:59 325 mg DAILY VERNA Administration Cholecalciferol 2,000 unit 05/08/21 10:00 05/08/21 11:05 Cholecalciferol (Vitamin D3) 1000 Unit Tablet PO 06/07/21 09:59 2,000 unit DAILY VERNA Administration Lisinopril 20 mg/ 0 mg 05/08/21 10:00 05/08/21 10:59 Hydrochlorothiazide 12.5 mg PO 06/07/21 09:59 12.5 mg DAILY VERNA Administration Famotidine 20 mg 05/08/21 10:00 05/08/21 11:01 Famotidine 20 Mg/1 Vial IV 06/07/21 09:59 20 mg Q12HT VERNA Administration Azithromycin 500 mg in 250 mls @ 250 mls/hr 05/08/21 22:00 Zithromax 500 Mg/ 250 Ml Nacl Premix IV 06/07/21 21:59 Q24H22 VERNA Folic Acid 1 mg/ Multivitamins 1,010.2 mls @ 100 mls/hr 05/08/21 07:45 05/08/21 09:00 Pediatric/Vitamin K 10 ml/ IV 06/07/21 07:44 100 mls/hr Sodium Chloride .BY DURATION VERNA Administration Sodium Chloride 1,000 mls @ 50 mls/hr 05/08/21 07:45 Sodium Chloride 0.9% 1000 Ml IV 06/07/21 07:44 .BY DURATION VERNA Thiamine HCl 500 mg/ Sodium 105 mls @ 210 mls/hr 05/10/21 10:00 Chloride IV 05/10/21 10:29 .Q30M ONE Thiamine HCl 500 mg/ Sodium 105 mls @ 210 mls/hr 05/09/21 10:00 Chloride IV 05/09/21 10:29 .Q30M ONE Insulin Human Regular 0 unit 05/08/21 03:26 Insulin Regular, Human 1 Unit SQ 06/07/21 03:25 UD PRN HYPERGLYCEMIA Metoprolol Tartrate 50 mg 05/08/21 10:00 05/08/21 11:00 Metoprolol Tartrate 50 Mg Tablet PO 06/07/21 09:59 50 mg BID VERNA Administration Nicotine 21 mg 05/08/21 09:30 05/08/21 15:10 Nicotine 21 Mg/Patch Patch TOP 06/07/21 09:29 21 mg Q24H VERNA Administration Non-Formulary Drug : 1 each 05/08/21 10:00 05/08/21 17:16 Sodium Chloride 1 PO 06/07/21 09:59 1 each Gm TID VERNA Administration Discontinued Medications Generic Name Dose Route Start Last Admin Trade Name Rika PRN Reason Stop Dose Admin Albuterol/Ipratropium 3 ml 05/07/21 20:23 05/07/21 20:42 Ipratropium/Albuterol Sulfate 3 Ml Ampul.Neb IH 05/07/21 20:24 3 ml STAT ONE Administration Albuterol/Ipratropium Confirm 05/07/21 20:28 Ipratropium/Albuterol Sulfate 3 Ml Ampul.Neb Administered 05/07/21 20:29 Dose 3 ml IH .STK-MED ONE Albuterol/Ipratropium 3 ml 05/08/21 03:26 05/08/21 14:07 Ipratropium/Albuterol Sulfate 3 Ml Ampul.Neb IH 06/07/21 03:25 Not Given Q4HRT VERNA Diazepam 10 mg 05/08/21 09:45 Diazepam 10 Mg/2 Ml Disp.Syringe IM 05/08/21 15:00 .1HRPRIOR TO MRI VERNA Diazepam 5 mg 05/08/21 11:14 05/08/21 11:18 Diazepam 10 Mg/2 Ml Disp.Syringe IV 05/08/21 11:15 5 mg STAT ONE Administration Diazepam 5 mg 05/08/21 12:57 05/08/21 13:00 Diazepam 10 Mg/2 Ml Disp.Syringe IV 05/08/21 12:58 5 mg STAT ONE Administration Sodium Chloride 1,000 mls @ 50 mls/hr 05/07/21 20:30 05/07/21 23:42 Sodium Chloride 0.9% 1000 Ml IV 06/06/21 20:29 50 mls/hr .Q20H VERNA Infusion Azithromycin 500 mg in 250 mls @ 250 mls/hr 05/07/21 21:02 05/08/21 01:28 Zithromax 500 Mg/ 250 Ml Nacl Premix IV 05/07/21 22:01 Infused STAT STA Infusion Potassium Chloride 20 meq in 100 mls @ 50 mls/hr 05/07/21 21:12 05/07/21 22:23 Potassium Chloride 20 Meq In Water 100ml IV 05/07/21 23:11 50 mls/hr STAT ONE Administration Azithromycin Confirm 05/07/21 21:32 Zithromax 500 Mg/ 250 Ml Nacl Premix Administered 05/07/21 21:33 Dose 500 mg in 250 mls @ ud IV .STK-MED ONE Potassium Chloride Confirm 05/07/21 21:32 Potassium Chloride 20 Meq In Water 100ml Administered 05/07/21 21:33 Dose 100 mls @ ud IV .STK-MED ONE Sodium Chloride 1,000 mls @ 50 mls/hr 05/08/21 03:26 Sodium Chloride 0.9% 1000 Ml IV 06/07/21 03:25 .Q20H VERNA Multivitamins/Minerals 10 ml/ 1,000 mls @ 100 mls/hr 05/08/21 03:26 Thiamine HCl 100 mg/ Folic IV 06/07/21 03:25 Acid 1 mg/ Sodium Chloride .Q10H VERNA Potassium Chloride 20 meq in 100 mls @ 50 mls/hr 05/08/21 06:26 05/08/21 06:38 Potassium Chloride 20 Meq In Water 100ml IV 05/08/21 08:25 50 mls/hr STAT ONE Administration Thiamine HCl 500 mg/ Sodium 105 mls @ 210 mls/hr 05/08/21 08:30 05/08/21 09:01 Chloride IV 05/08/21 08:59 210 mls/hr .Q30M ONE Administration Multivitamins Pediatric/ 1,000 mls @ 100 mls/hr 05/08/21 07:45 Vitamin K 5 ml/ Folic Acid 1 IV 06/07/21 07:44 mg/ Sodium Chloride .Q10H VERNA Multivitamins Pediatric/ 1,005.2 mls @ 100 mls/hr 05/08/21 07:45 Vitamin K 5 ml/ Folic Acid 1 IV 06/07/21 07:44 mg/ Sodium Chloride .Q10H4M VERNA Potassium Chloride 20 meq in 100 mls @ 50 mls/hr 05/08/21 12:00 05/08/21 17:16 Potassium Chloride 20 Meq In Water 100ml IV 05/08/21 15:59 50 mls/hr Q2H VERNA Administration Thiamine HCl 500 mg/ Sodium 105 mls @ 210 mls/hr 05/09/21 10:00 Chloride IV 05/09/21 10:29 .Q30M ONE Potassium Bicarbonate 25 meq 05/07/21 21:12 05/07/21 21:33 Potassium Bicarbonate 25 Meq Tab PO 05/07/21 21:13 25 meq STAT ONE Administration Potassium Bicarbonate Confirm 05/07/21 21:32 Potassium Bicarbonate 25 Meq Tab Administered 05/07/21 21:33 Dose 25 meq .ROUTE .STK-MED ONE Potassium Bicarbonate 25 meq 05/08/21 06:26 05/08/21 06:45 Potassium Bicarbonate 25 Meq Tab PO 05/08/21 06:27 Not Given STAT ONE Potassium Bicarbonate 25 meq 05/08/21 07:45 05/08/21 09:55 Potassium Bicarbonate 25 Meq Tab PO 05/08/21 07:46 Not Given STAT ONE Thiamine HCl 500 mg 05/08/21 10:00 Thiamine Hcl 200 Mg/2 Ml Vial IV 06/07/21 09:59 DAILY VERNA Intake & Output (Last 24 hours) 05/06/21 05/07/21 05/08/21 05/09/21 11:59 11:59 11:59 11:59 Intake Total 0 Output Total 300 Balance -300 Weight 76.2 kg Laboratory Results (Last 24 hours) 05/08/21 05/08/21 05/08/21 10:50 08:41 04:30 WBC RBC Hgb Hct MCV MCH MCHC RDW Plt Count MPV Gran % Eos # (Auto) Absolute Lymphs (auto) Absolute Monos (auto) Lymphocytes % Monocytes % Eosinophils % Basophils % Absolute Granulocytes Basophils # D-Dimer Sodium Potassium 2.9 L* Chloride Carbon Dioxide Anion Gap BUN Creatinine Estimated GFR Glucose Lactic Acid Calcium Total Bilirubin AST ALT Alkaline Phosphatase Ammonia Troponin I 0.124 H* NT-Pro-B Natriuret Pep Serum Total Protein Albumin Prealbumin 12.57 L Lipase Vitamin B12 TSH 3rd Generation Influenza Type A Ag Influenza Type B Ag RSV (PCR) SARS-CoV-2 (PCR) 05/08/21 05/08/21 05/08/21 04:30 04:30 04:30 WBC 8.4 RBC 4.00 L Hgb 11.9 L Hct 35.6 L MCV 89.0 MCH 29.8 MCHC 33.4 RDW 13.8 Plt Count 258 MPV 9.7 Gran % Eos # (Auto) Absolute Lymphs (auto) Absolute Monos (auto) Lymphocytes % Monocytes % Eosinophils % Basophils % Absolute Granulocytes Basophils # D-Dimer Sodium 131 L Potassium 2.7 L* Chloride 89 L Carbon Dioxide 34 H Anion Gap 10.4 BUN 9 Creatinine 0.64 L Estimated GFR > 60.0 Glucose 107 H Lactic Acid Calcium 8.3 L Total Bilirubin AST ALT Alkaline Phosphatase Ammonia Troponin I NT-Pro-B Natriuret Pep Serum Total Protein Albumin Prealbumin Lipase Vitamin B12 396 TSH 3rd Generation Influenza Type A Ag Influenza Type B Ag RSV (PCR) SARS-CoV-2 (PCR) 05/08/21 05/08/21 05/08/21 04:30 04:30 02:16 WBC RBC Hgb Hct MCV MCH MCHC RDW Plt Count MPV Gran % Eos # (Auto) Absolute Lymphs (auto) Absolute Monos (auto) Lymphocytes % Monocytes % Eosinophils % Basophils % Absolute Granulocytes Basophils # D-Dimer Sodium Potassium Chloride Carbon Dioxide Anion Gap BUN Creatinine Estimated GFR Glucose Lactic Acid Calcium Total Bilirubin AST ALT Alkaline Phosphatase Ammonia Troponin I 0.173 H* 0.158 H* NT-Pro-B Natriuret Pep Serum Total Protein Albumin Prealbumin Lipase Vitamin B12 TSH 3rd Generation 1.410 Influenza Type A Ag Influenza Type B Ag RSV (PCR) SARS-CoV-2 (PCR) 05/08/21 05/08/21 05/07/21 01:39 00:30 23:55 WBC RBC Hgb Hct MCV MCH MCHC RDW Plt Count MPV Gran % Eos # (Auto) Absolute Lymphs (auto) Absolute Monos (auto) Lymphocytes % Monocytes % Eosinophils % Basophils % Absolute Granulocytes Basophils # D-Dimer Sodium Potassium Chloride Carbon Dioxide Anion Gap BUN Creatinine Estimated GFR Glucose Lactic Acid Calcium Total Bilirubin AST ALT Alkaline Phosphatase Ammonia < 9 L Troponin I 0.111 H* NT-Pro-B Natriuret Pep Serum Total Protein Albumin Prealbumin Lipase Vitamin B12 TSH 3rd Generation Influenza Type A Ag NEGATIVE Influenza Type B Ag NEGATIVE RSV (PCR) NEGATIVE SARS-CoV-2 (PCR) NEGATIVE 05/07/21 05/07/21 05/07/21 20:39 20:39 20:39 WBC RBC Hgb Hct MCV MCH MCHC RDW Plt Count MPV Gran % Eos # (Auto) Absolute Lymphs (auto) Absolute Monos (auto) Lymphocytes % Monocytes % Eosinophils % Basophils % Absolute Granulocytes Basophils # D-Dimer 1475 H* Sodium 130 L Potassium 3.0 L* Chloride 82 L Carbon Dioxide 36 H Anion Gap 15.9 H BUN 12 Creatinine 0.79 Estimated GFR > 60.0 Glucose 139 H Lactic Acid Calcium 9.4 Total Bilirubin 0.80 AST 33 ALT 28 Alkaline Phosphatase 166 H Ammonia Troponin I < 0.012 NT-Pro-B Natriuret Pep 1540 H Serum Total Protein 8.8 H Albumin 4.7 Prealbumin Lipase 135 Vitamin B12 TSH 3rd Generation Influenza Type A Ag Influenza Type B Ag RSV (PCR) SARS-CoV-2 (PCR) 05/07/21 05/07/21 20:39 20:30 WBC 10.1 RBC 4.85 Hgb 14.4 Hct 42.8 MCV 88.2 MCH 29.7 MCHC 33.6 RDW 14.0 Plt Count 313 MPV 10.2 Gran % 68.9 H Eos # (Auto) 0.21 Absolute Lymphs (auto) 1.82 Absolute Monos (auto) 1.09 Lymphocytes % 18.0 L Monocytes % 10.8 Eosinophils % 2.1 Basophils % 0.2 Absolute Granulocytes 6.99 H Basophils # 0.02 D-Dimer Sodium Potassium Chloride Carbon Dioxide Anion Gap BUN Creatinine Estimated GFR Glucose Lactic Acid 1.7 Calcium Total Bilirubin AST ALT Alkaline Phosphatase Ammonia Troponin I NT-Pro-B Natriuret Pep Serum Total Protein Albumin Prealbumin Lipase Vitamin B12 TSH 3rd Generation Influenza Type A Ag Influenza Type B Ag RSV (PCR) SARS-CoV-2 (PCR) Orders (Last 24 hours) Category Date Time Status Bedrest with BRP/BSC ROUTINE Activity 05/08/21 03:26 Active Up With Assistance ROUTINE Activity 05/08/21 03:26 Active Market Research Manager STAT Care 05/07/21 20:22 Completed Code Status Order ROUTINE Care 05/08/21 03:26 Active EKG-ER Only STAT Care 05/07/21 20:20 Completed Fall Protocol Q1H Care 05/08/21 03:26 Active IV Care Q6H Care 05/08/21 03:26 Active IV Insertion STAT Care 05/07/21 20:20 Completed Intake and Output Q12H Care 05/08/21 03:26 Active Neuro Checks Q4H Care 05/08/21 03:26 Active Order K Level 2 hours post-inf 2 HRS POST K-INFUSED Care 05/08/21 06:[address] in Observation ROUTINE Care 05/08/21 03:26 Active Potassium [Order K Level 2 hours post-inf] 2 HRS POST K Care 05/08/21 11:57 Active -INFUSED Pulse Oximetry (ED) STAT Care 05/07/21 20:20 Completed Telemetry q6h Care 05/08/21 03:26 Active Vital Signs Q4H Care 05/08/21 03:26 Active Weight,Daily 0600 Care 05/08/21 03:26 Active Consult Podiatry ROUTINE Cons 05/08/21 09:28 Active Band Head Saw Operator/Discharge Plan ROUTINE Cons 05/08/21 04:50 Active Tele-Health Consult ROUTINE Cons 05/08/21 03:26 Active Heart-Healthy Diet Diet 05/08/21 Breakfast Active CAROTID BILATERAL [US] Routine Exams 05/08/21 15:28 Completed CHEST 1 VIEW (PORTABLE) Stat Exams 05/07/21 20:21 Completed CHEST WITH CONTRAST [CT] Stat Exams 05/07/21 21:11 Completed HEAD WITHOUT CONTRAST [CT] Stat Exams 05/07/21 21:38 Completed MRA BRAIN WITHOUT CONTRAST [MRI] Routine Exams 05/08/21 03:26 Completed AMMONIA Stat Lab 05/08/21 00:30 Completed BMP AM.LAB Lab 05/08/21 04:30 Completed CBC AM.LAB Lab 05/08/21 04:30 Completed CBC W DIFF Stat Lab 05/07/21 20:39 Completed CMP Stat Lab 05/07/21 20:39 Completed D-DIMER QUANTITATIVE Stat Lab 05/07/21 20:39 Completed LIPASE Stat Lab 05/07/21 20:39 Completed Lactic Acid Stat Lab 05/07/21 20:30 Completed NT PRO BNP Stat Lab 05/07/21 20:39 Completed PREALBUMIN Routine Lab 05/08/21 04:30 Completed Potassium (Lab Test) [Potassium] Urgent Lab 05/08/21 10:50 Completed RPR Stat Lab 05/08/21 04:30 Received TROPONIN Q3H Lab 05/07/21 20:39 Completed TROPONIN Q3H Lab 05/07/21 23:55 Completed TROPONIN Q3H Lab 05/08/21 02:16 Completed TROPONIN Q3H Lab 05/08/21 04:30 Completed TROPONIN Q3H Lab 05/08/21 08:41 Completed TSH, 3RD Generation Stat Lab 05/08/21 04:30 Completed Vitamin B12 AM.LAB Lab 05/08/21 04:30 Completed ALT Order Med 05/08/21 07:45 Active Acetaminophen 325 mg [Tylenol 325 mg] Med 05/08/21 03:26 Active 650 mg PO Q4H PRN PRN Albuterol/Ipratropium 3ml Neb* [DUONEB 0.5-3 MG/3 ml Med 05/07/21 20:28 Discontinued Neb] 3 ml IH .STK-MED ONE Albuterol/Ipratropium 3ml Neb* [DUONEB 0.5-3 MG/3 ml Med 05/08/21 14:08 Active Neb] 3 ml IH Q4HPRN PRN Albuterol/Ipratropium 3ml Neb* [DUONEB 0.5-3 MG/3 ml Med 05/08/21 03:26 Discontinued Neb] 3 ml IH Q4HRT Albuterol/Ipratropium 3ml Neb* [DUONEB 0.5-3 MG/3 ml Med 05/07/21 20:23 Discontinued Neb] 3 ml IH STAT ONE Aspirin EC 325 mg [Ecotrin 325 MG] Med 05/08/21 10:00 Active 325 mg PO DAILY Azithromycin 500 mg/250 ml [Zithromax 500 MG/ 250 ML Med 05/08/21 22:00 Active NaCl Premix] 500 mg in 250 ml IV Q24H22 Azithromycin 500 mg/250 ml [Zithromax 500 MG/ 250 ML Med 05/07/21 21:02 Discontinued NaCl Premix] 500 mg in 250 ml IV STAT Azithromycin 500 mg/250 ml [Zithromax 500 MG/ 250 ML Med 05/07/21 21:32 Discontinued NaCl Premix] 500 mg in 250 ml IV UD Cholecalciferol (Vitamin D3) [Vitamin D] Med 05/08/21 10:00 Active 2,000 unit PO DAILY Diazepam 10 mg/2 ml Syringe [Valium 10 mg/2 ml Med 05/08/21 09:45 Discontinued Syringe] 10 mg IM .1HRPRIOR TO MRI Diazepam 10 mg/2 ml Syringe [Valium 10 mg/2 ml Med 05/08/21 11:14 Discontinued Syringe] 5 mg IV STAT ONE Diazepam 10 mg/2 ml Syringe [Valium 10 mg/2 ml Med 05/08/21 12:57 Discontinued Syringe] 5 mg IV STAT ONE Famotidine 20 mg Vial [Pepcid 20 MG VIAL] Med 05/08/21 10:00 Active 20 mg IV Q12HT Insulin Regular, Human [Humulin R] Med 05/08/21 03:26 Active See Dose Instructions SQ UD PRN Lisinopril 20 mg [Zestril 20 MG] 20 mg Med 05/08/21 10:00 Active Hydrochlorothiazide 25 mg [hydroDIURIL 25 MG] 12. 5 mg PO DAILY Metoprolol Tartrate 50 mg [Lopressor 50 MG] Med 05/08/21 10:00 Active 50 mg PO BID NaCl 0.9% 1000 ml [Sodium Chloride 0.9% 1000 ML] 1,000 Med 05/08/21 07:45 Discontinued ml Multivit Infusion,Pedi 1,Vit K [Infuvite Pediatric] 5 ml Folic Acid Inj [Folnate 5 mg/ml 10 ml Vial] 1 mg IV 100 mls/hr NaCl 0.9% 1000 ml [Sodium Chloride 0.9% 1000 ML] 1,000 Med 05/07/21 20:30 Discontinued ml IV 50 mls/hr NaCl 0.9% 1000 ml [Sodium Chloride 0.9% 1000 ML] 1,000 Med 05/08/21 03:26 Discontinued ml IV 50 mls/hr NaCl 0.9% 1000 ml [Sodium Chloride 0.9% 1000 ML] 988.8 Med 05/08/21 03:26 Discontinued ml Multivitamins 10 ml [Vitamins For Infusion 10 ML INJECTION] 10 ml Thiamine HCl 200 mg/2 ml [Thiamine 200 mg/2 ml] 100 mg Folic Acid Inj [Folnate 5 mg/ml 10 ml Vial] 1 mg IV 100 mls/hr NaCl 0.9% 1000 ml [Sodium Chloride 0.9% 1000 ML] 994.8 Med 05/08/21 07:45 Discontinued ml Multivit Infusion,Pedi 1,Vit K [Infuvite Pediatric] 5 ml Folic Acid Inj [Folnate 5 mg/ml 10 ml Vial] 1 mg IV 100 mls/hr Nicotine 21 mg [Nicoderm CQ 21 MG] Med 05/08/21 09:30 Active 21 mg TOP Q24H Non-Formulary Drug [Non-Formulary Item] Med 05/08/21 10:00 Active 1 each PO TID Potassium Bicarbonate 25 MEQ [K-Lyte 25 Meq] [facility] 05/07/21 21:32 Discontinued 25 meq .ROUTE .STK-MED ONE Potassium Bicarbonate 25 MEQ [K-Lyte 25 Meq] [facility] 05/07/21 21:12 Di scontinued 25 meq PO STAT ONE Potassium Bicarbonate 25 MEQ [K-Lyte 25 Meq] [facility] 05/08/21 06:26 Discontinued 25 meq PO STAT ONE Potassium Bicarbonate 25 MEQ [K-Lyte 25 Meq] [facility] 05/08/21 07:45 Discontinued 25 meq PO STAT ONE Potassium Chloride 20Meq/100Ml [POTASSIUM CHLORIDE 20 [facility] 05/08/21 12:00 Discontinued mEq IN WATER 100ML] 20 meq in 100 ml IV Q2H Potassium Chloride 20Meq/100Ml [POTASSIUM CHLORIDE 20 [facility] 05/07/21 21:12 Discontinued mEq IN WATER 100ML] 20 meq in 100 ml IV STAT Potassium Chloride 20Meq/100Ml [POTASSIUM CHLORIDE 20 [facility] 05/08/21 06:26 Discontinued mEq IN WATER 100ML] 20 meq in 100 ml IV STAT Potassium Chloride 20Meq/100Ml [POTASSIUM CHLORIDE 20 [facility] 05/07/21 21:32 Discontinued mEq IN WATER 100ML] 100 ml IV UD Thiamine HCl 200 mg/2 ml [Thiamine 200 mg/2 ml] [facility] 05/08/21 10:00 Discontinued 500 mg IV DAILY Thiamine HCl 200 mg/2 ml [Thiamine 200 mg/2 ml] [facility] 05/08/21 08:30 Discontinued 500 mg NaCl 0.9% 100Ml [Sodium Chloride 0.9% 100 ML BAG] 100 ml IV .Q30M Thiamine HCl 200 mg/2 ml [Thiamine 200 mg/2 ml] [facility] 05/09/21 10:00 Active 500 mg NaCl 0.9% 100Ml [Sodium Chloride 0.9% 100 ML BAG] 100 ml IV .Q30M Thiamine HCl 200 mg/2 ml [Thiamine 200 mg/2 ml] [facility] 05/09/21 10:00 Discontinued 500 mg NaCl 0.9% 100Ml [Sodium Chloride 0.9% 100 ML BAG] 100 ml IV .Q30M Thiamine HCl 200 mg/2 ml [Thiamine 200 mg/2 ml] Med 05/10/21 10:00 Active 500 mg NaCl 0.9% 100Ml [Sodium Chloride 0.9% 100 ML BAG] 100 ml IV .Q30M OT Screen per Nursing Assess ONCE OT 05/08/21 04:50 Completed PT Screen per Nursing Assess ONCE PT 05/08/21 04:50 Active Oxygen Nasal Cannula 2 lpm RT 05/08/21 03:59 Active Pulse Oximetry CONTINUOUS RT 05/08/21 03:26 Active RT Screen per Nursing Assess ONCE RT 05/08/21 04:50 Completed Respiratory Therapy Assessment DAILY RT 05/07/21 20:43 Active Respiratory Therapy Consult ROUTINE RT 05/08/21 03:26 Completed Transfer Order Routine Transfer 05/08/21 Completed Patient Care Notes (Last 24 hours) 05/08/21 17:16 Nursing Note by Alta Ferrell first k- rider has finished infusing. Initialized on 05/08/21 17:16 - END OF NOTE 05/08/21 16:06 Nursing Note by Alta Ferrell surgery consult cancelled, Dr. Win came, CT report does not support lesions on scalp. Initialized on 05/08/21 16:06 - END OF NOTE 05/08/21 15:04 Nursing Note by Eladia Burnham Back from radiology and US here for testing. Initialized on 05/08/21 15:04 - END OF NOTE 05/08/21 12:02 Nursing Note by Alta Ferrell 1110- pt refuses IM valium, Dr. Way notified, he orders IV, attempt to administer IV, pt pushed my hands away and screams he does not want it. we discuss with him speaking with Dr. Way, he wants to speak with Dr. Way , I call him on the phone, he states he will be here in 5 minutes, I remain in room with Eladia IVAN. pt gets very belligerent. Lesley Freeman does arrive, he speaks to patient, pt asks why he has to have the valium to get the MRI Dr. Way states he has to remain very still. pt finally agrees. he was very reluctant. the medication is administered to him. [facility] consult also arrives while we are waiting for Dr. Way. she completes her evaluation. Radiology is notified, pt has had his medication. Dr. Way is aware of potassium level, however he left the unit without any orders, he is called and ordered are received. at 1210 radiology here to get patient, pt has to be reoriented and reminded of his conversation with Dr. Way to get test. he finally agrees he gets onto cart slowly, but he does. he is off unit at 1219. IV locked with MRI gown in place. Initialized on 05/08/21 12:02 - END OF NOTE 05/08/21 11:59 Nursing Admission Note by Nhung Kyle FOR [facility]. NO TREATMENT FROM THEM AT THIS TIME. ROSE 05-08-21 [id number] Initialized on 05/08/21 11:59 - END OF NOTE 05/08/21 10:44 Nursing Note by Alta Ferrell here to draw lab, pt is very sleepy, his feet are elevated at this time. pt is very sleepy. labs drawn, pt sleeps thru lab draw. Initialized on 05/08/21 10:44 - END OF NOTE 05/08/21 10:42 Nursing Note by Nhung Kyle CALLED DR SHELBIE GILLETTE ABOUT CONSULT. HE IS OUT TODAY AND WILL ADDRESSS TOMORROW ROSE [id number] Initialized on 05/08/21 10:42 - END OF NOTE 05/08/21 10:39 Nursing Note by Nhung Kyle 05-08-21 CALLED [facility] ACCESS TO SCHEDULE FACE TO FACE CONSULT. WILL WAIT FOR FOLLOW UP ROSE [id number] Initialized on 05/08/21 10:39 - END OF NOTE 05/08/21 10:20 (created 05/08/21 10:54) Case Management Note by Savanna Camarillo LONG DISCUSSION WITH KRISTEN, PT'S NIECE. REPORTS THAT PT LIVES WITH HER. HE HAS BEEN CONFUSED THE LAST FEW WEEKS AND SHE HAS BEEN HELPING HIM, BUT NORMALLY PT IS ALERT AND ORIENTED AND ABLE TO PROVIDE SELF CARE. TOILETS AND SHOWERS HIMSELF. HAS A WALKER, BUT RARELY USES IT. DOES NOT USE ANY OTHER DME. HAS A NURSE THAT COMES TWICE WEEKLY TO CHECK HIS LEGS. REPORTS THAT SHE IS UNSURE WHAT PROVIDER OF [facility] SERVICE SHE IS WITH. REPORTS THAT SHE AND THE NURSE HAVE BEEN DISCUSSING REHAB STAY AT [facility], REPORTS THAT PT HAS BEEN TO [facility] IN THE PAST (EARLY LAST YEAR), AND THEY FEEL THAT PT COULD BENEFIT FROM REHAB STAY. KRISTEN REPORTS THAT PT WON'T WANT TO GO TO REHAB, BUT HE WILL BE AGREEABLE THEY HAVE ALSO DISCUSSED TOGETHER. CALL TO [facility] AND NOTIFIED OF REFERRAL. Initialized on 05/08/21 10:54 - END OF NOTE 05/08/21 09:38 Case Management Note by Hailey Banda CALLED [facility] TO DISCUSS CM NEEDS- NO ANSWER-LEFT MESSAGE Initialized on 05/08/21 09:38 - END OF NOTE 05/08/21 08:25 Nursing Note by Alta Ferrell pt confused will not stay in bed he is transferred to chair, offered urinal , he refused. pt placed in chair, chair alarm on , frequently has to be reoriented. pt does ambulate to restroom to have BM. he states he did urinate, but he could not have BM. pt back to chair, be can be aggressive at times. pt did attempt to push staff. pt also tries to smoke cigarette in room. pt is provided coffee to drink per his request. pt is very suspicious of coffee he insists on taking the lid off to see what he is drinking. pt provided call light attempt to find TV show pt would enjoy watching. Initialized on 05/08/21 08:25 - END OF NOTE Code(s): I25.119 - ATHSCL HEART DISEASE OF [place] COR ART W UNSP ANG PCTRS (2) COPD exacerbation Current Visit: Yes Status: Acute Code(s): J44.1 - CHRONIC OBSTRUCTIVE PULMONARY DISEASE W (ACUTE) EXACERBATION (3) Scalp lesion Current Visit: Yes Status: Acute Code(s): L98.9 - DISORDER OF THE SKIN AND SUBCUTANEOUS TISSUE, UNSPECIFIED (4) Confusion Current Visit: No Status: Acute Code(s): R41.0 - DISORIENTATION, UNSPECIFIED
[2021-05-08] MEDS ORDERED: Zithromax 500 MG/ 250 ML NaCl Premix 500 MG/250 ML IVPB IV SCH (22:00)
[2021-05-09] MEDS ORDERED: Sodium Chloride 0.9% 1000 ML 1,000 ML ONE (01:03)
[2021-05-09 07:18] LABS: RPR Non Reactive (Non Reactive)
--- NOTE | 2021-05-09 08:18 | PCM.NOTE ---
Date and Time: 05/09/21816 Subjective Assessment: Last 24 hours events noted. - Review of Systems Constitutional: No Fever, No Chills Eyes: No Symptoms Ears, Nose, & Throat: No Symptoms Respiratory: No Cough, No Short Of Breath Cardiac: No Chest Pain, No Edema, No Syncope Abdominal/Gastrointestinal: No Abdominal Pain, No Nausea, No Vomiting, No Diarrhea Genitourinary Symptoms: No Dysuria Musculoskeletal: No Back Pain, No Neck Pain Skin: No Rash Neurological: No Dizziness, No Focal Weakness, No Sensory Changes Psychological: No Symptoms Endocrine: No Symptoms Hematologic/Lymphatic: No Symptoms Immunological/Allergic: No Symptoms Objective Exam General Appearance: no apparent distress, alert Neurologic Exam: alert, oriented x 3, cooperative, normal mood/affect, nml cerebellar function, sensation nml, No motor deficits Skin Exam: normal color, warm, dry Wound Assessment: Skin/Wound Assessment Wound/Incision Assessment Start: 05/08/21 04:50 Text: Status: Active Freq: Q6H Protocol: Document 05/09/21 02:00 KJW (Rec: 05/09/21 02:37 KJW [id number]) Wound/Incision Assessment Right Lower Calf Wound Assessment Shift Assessment Wound Type cellulitis Wound Stage Non Pressure Wound Dressing Status Dry & Intact Drainage Amount None Comment dressing with coban cdi applied as OP by DR. Burroughs, his office notified to consult Wound Photo Photo Taken No Eye Exam: PERRL, EOMI, eyes nml inspection Ears, Nose, Throat Exam: normal ENT inspection, pharynx normal, moist mucous membranes Neck Exam: normal inspection, non-tender, supple, full range of motion Respiratory Exam: normal breath sounds, lungs clear, No respiratory distress Cardiovascular Exam: regular rate/rhythm, normal heart sounds Gastrointestinal/Abdomen Exam: soft, No tenderness, No mass Extremity Exam: normal inspection, normal range of motion Back Exam: normal inspection, normal range of motion, No CVA tenderness, No vertebral tenderness Male Genitalia Exam: deferred Rectal Exam: deferred OBJECTIVE DATA Vital Signs: Vital Signs - 24 hr Temp Pulse Resp BP Pulse Ox 05/09/21 07:11 98.0 F 61 18 190/84 94 L 05/09/21 06:46 71 18 91 L 05/09/21 04:31 96.8 F 72 18 200/93 91 L 05/09/21 01:10 96.3 F 73 18 183/78 91 L 05/08/21 19:15 97.7 F 69 16 180/74 95 05/08/21 17:58 70 18 92 L 05/08/21 16:00 97.9 F 65 14 136/73 95 05/08/21 12:00 98.1 F 66 16 143/54 92 L 05/08/21 11:18 75 22 Pain Assessment - Last Documented Pain Intensity 0 Intake and Output: Intake & Output 05/06/21 05/07/21 05/08/21 05/09/21 11:59 11:59 11:59 11:59 Intake Total 0 3237 Output Total 300 Balance -300 3237 Weight 76.2 kg Lab Results: Lab Results-Last 24 Hours 05/08/21 05/08/21 05/08/21 Range/Units 04:30 04:30 08:41 Potassium (3.5-5.1) mmol/L Troponin I 0.124 H* (0.000-0.034) ng/mL Vitamin B12 396 (239-931) pg/mL RPR Non Reactive (Non Reactive) 05/08/21 05/08/21 Range/Units 10:50 21:45 Potassium 2.9 L* 3.6 D (3.5-5.1) mmol/L Troponin I (0.000-0.034) ng/mL Vitamin B12 (239-931) pg/mL RPR (Non Reactive) Radiology Exams: Radiology Procedures Category Date Time Status CAROTID BILATERAL [US] Routine Exams 05/08/21 15:28 Completed CHEST 1 VIEW (PORTABLE) Stat Exams 05/07/21 20:21 Completed CHEST WITH CONTRAST [CT] Stat Exams 05/07/21 21:11 Completed HEAD WITHOUT CONTRAST [CT] Stat Exams 05/07/21 21:38 Completed MRA BRAIN WITHOUT CONTRAST [MRI] Routine Exams 05/08/21 03:26 Completed Multi-Disciplinary Progress Notes: Multi-Disciplinary Progress Notes 05/08/21 10:20 (created 05/08/21 10:54) Case Management Note by Savanna Camarillo LONG DISCUSSION WITH KRISTEN, PT'S NIECE. REPORTS THAT PT LIVES WITH HER. HE HAS BEEN CONFUSED THE LAST FEW WEEKS AND SHE HAS BEEN HELPING HIM, BUT NORMALLY PT IS ALERT AND ORIENTED AND ABLE TO PROVIDE SELF CARE. TOILETS AND SHOWERS HIMSELF. HAS A WALKER, BUT RARELY USES IT. DOES NOT USE ANY OTHER DME. HAS A NURSE THAT COMES TWICE WEEKLY TO CHECK HIS LEGS. REPORTS THAT SHE IS UNSURE WHAT PROVIDER OF [facility] SERVICE SHE IS WITH. REPORTS THAT SHE AND THE NURSE HAVE BEEN DISCUSSING REHAB STAY AT [facility], REPORTS THAT PT HAS BEEN TO [facility] IN THE PAST (EARLY LAST YEAR), AND THEY FEEL THAT PT COULD BENEFIT FROM REHAB STAY. KRISTEN REPORTS THAT PT WON'T WANT TO GO TO REHAB, BUT HE WILL BE AGREEABLE THEY HAVE ALSO DISCUSSED TOGETHER. CALL TO [facility] AND NOTIFIED OF REFERRAL. Initialized on 05/08/21 10:54 - END OF NOTE 05/08/21 09:38 Case Management Note by Hailey Banda CALLED [facility] TO DISCUSS CM NEEDS- NO ANSWER-LEFT MESSAGE Initialized on 05/08/21 09:38 - END OF NOTE Assessment/Plan (1) COPD exacerbation Current Visit: Yes Status: Acute Code(s): J44.1 - CHRONIC OBSTRUCTIVE PULMONARY DISEASE W (ACUTE) EXACERBATION (2) Chest pain due to CAD Current Visit: Yes Status: Resolved Code(s): I25.119 - ATHSCL HEART DISEASE OF [place] COR ART W UNSP ANG PCTRS (3) Scalp lesion Current Visit: Yes Status: Acute Code(s): L98.9 - DISORDER OF THE SKIN AND SUBCUTANEOUS TISSUE, UNSPECIFIED (4) Confusion Current Visit: No Status: Acute Code(s): R41.0 - DISORIENTATION, UNSPECIFIED
[2021-05-09] MEDS: VITAMIN D PO SCH (09:52)
[2021-05-09] MEDS: Lopressor 50 MG PO SCH (09:52)
[2021-05-09] MEDS: Zestril 20 MG*** 20 MG, hydroDIURIL 25 MG*** 12.5 MG PO SCH ×2 (09:52)
[2021-05-09] MEDS: Nicoderm CQ 21 MG TOP SCH (09:55)
[2021-05-09] MEDS: Pepcid 20 MG VIAL IV SCH (09:55)
[2021-05-09] MEDS: NON-FORMULARY ITEM PO SCH (09:55)
[2021-05-09] MEDS: Ecotrin 325 MG PO SCH (09:55)
[2021-05-09] MEDS ORDERED: NON-FORMULARY ITEM (Cholecalciferol (Vitamin D3) [Vitamin D3] 50 MCG Capsule) PO SCH (10:00)
[2021-05-09] MEDS ORDERED: SODIUM CHLORIDE 0.9% IV ONE ×4 (10:00)
[2021-05-09] MEDS ORDERED: THIAMINE IV ONE ×4 (10:00)
[2021-05-09 11:40] VITALS: BP 167/73; PULSE 67; O2SAT 95
--- NOTE | 2021-05-09 11:40 | CONS ---
CONSULT DATE: 05/08/2021 HISTORY: I was consulted for some scalp lesion. Apparently, Dr. Mustapha Oconnor was consulted who is operations advisor for our group today. I was here doing some cases and he asked that I stop by. The patient has multiple medical problems, had some confusion, some chest pain, chronic obstructive pulmonary disease, multiple medical problems. PAST MEDICAL HISTORY: Hypertension. PAST SURGICAL HISTORY: Stents in the past. FAMILY HISTORY: All reviewed per the admission assessment. SOCIAL HISTORY: All reviewed per the admission assessment. REVIEW OF SYSTEMS: All reviewed per the admission assessment. PHYSICAL EXAMINATION: All reviewed per the admission assessment. IMPRESSION: They asked our group to see for scalp lesion. He has a little discolored scalp lesion that he said has not changed in multiple years. I do feel it needs any emergent intervention. It sounds like he has some other medical issues and confusion issues going on. He does not need any emergent surgical intervention. As Dr. Mustapha Oconnor is operations advisor today, he can follow up with Dr. Oconnor's office down the road should he need to have intervention regarding this chronic skin lesion on the scalp or other areas.
--- NOTE | 2021-05-09 15:52 | PCM.CONS ---
Podiatry HPI - Consult Date of Consultation Date: 05/09/21 Reason for Consult: Venous insufficiency ulceration right ankle Consulting Provider: RIOS STILES DPM - [facility] History of Present Illness: Jae holguin 70-year-old male who presents today for follow-up of a right ankle ulceration. Patient states that the wound was draining excessively over the course of the last week. New swelling and cellulitis has appeared to the right lower extremity at this time. He currently denies any constitutional symptoms of infection. He denies any other pedal complaints at this time Medications & Allergies Home Medications: Home Medication List Aspirin EC 325 mg [Ecotrin 325 MG] 325 mg PO DAILY 02/18/19 [History Confirmed 05/08/21] Metoprolol Tartrate 50 mg [Lopressor 50 MG] 50 mg PO BID #60 tablet 03/12/19 [Rx Confirmed 05/08/21] Cholecalciferol (Vitamin D3) [Vitamin D3] 1 cap PO DAILY 05/08/21 [History Confirmed 05/08/21] Lisinopril/Hydrochlorothiazide [Lisinopril-Hctz 20-12.5 mg Tab] 1 tab PO DAILY 05/08/21 [History Confirmed 05/08/21] Sodium Chloride 1 tab PO TID 05/08/21 [History Confirmed 05/08/21] Allergies/Adverse Reactions: Allergies Allergy/AdvReac Type Severity Reaction Status Date / Time Penicillins Allergy Verified 05/07/21 20:34 - Past Medical History Past Medical History: Yes Neurological History: No Pertinent History ENT History: No Pertinent History Cardiac History: Hypertension Respiratory History: No Pertinent History Endocrine Medical History: No Pertinent History Musculoskelatal History: No Pertinent History GI Medical History: No Pertinent History History: No Pertinent History Pyscho-Social History: No Pertinent History Male Reproductive Disorders: No Pertinent History Comment: [place], Stent x 2 in right le and 1 in left femoral artery. Patient is a poor historian. History recalled from previous admission - Past Surgical History Past Surgical History: Yes Neuro Surgical History: No Pertinent History Cardiac History: Vascular Surgery Respiratory Surgery: No Pertinent History GI Surgical History: No Pertinent History Genitourinary Surgical Hx: No Pertinent History Musculskeletal Surgical Hx: No Pertinent History Male Surgical History: No Pertinent History Other Surgical History: stent to tono femoral artery, caroditectomy. Patient is a poor historian. History recalled from previous admission. - Social History Smoking Status: Current every day smoker How long have you smoked: years Exposure to second hand smoke: No Alcohol: None Drug Use: none Physical Exam - Narrative Narrative Physical Exam: Podiatry Physical Exam Vascular: DP and PT pulses Are nonpalpable b/l. Subjective Doppler exam was performed and signals appear to be monophasic for both DP and PT to the bilateral lower extremity. CFT Is brisk b/l Tested to the hallux. Skin temperature Hot to Warm from the proximal tibial tuberosity to distal toes b/l. Absent pedal hair growth to the bilateral lower extremity. No varicosities noted to the lower leg, there is no evidence of lymphangitis or proximal streaking. Suspect cellulitis to the bilateral lower extremity to the layer area of the tibial tuberosity to the anterior aspect of the ankles. There is no lymphadenopathy on palpation of the popliteal or inguinal lymph nodes. There is edema to the right lower extremity from the area of the malleoli are area to the pretibial area that is 2+ pitting.There is pain with compression to the left calf. There is an increase in cellulitic intensity and erythema to the right medial ankle corresponding with the only open wound he has remaining. Neurological: Protective sensation intact as noted with Hinkley-Main 5.07 monofilament b/l. Lower extremity temperature sensation normal b/l. No evidence of intrinsic muscle atrophy. Dermatological:Diffusely xerotic with hemosiderin deposits and exfoliation of the upper layer of the skin consistent with bilateral peripheral edema. Open lesions noted to the bilateral lower extremity sizes documented below. Diffusely cellulitic to the bilateral lower extremity. Toenails 1-5 b/l are abnormal in Length, thickness and Discolored brown and yellow. They are dystrophic and crumbling as well as, painful on compression. Webspaces are clean, dry and intact Maceration webspace 1. Wound at the medial aspect of the ankle of the right foot.No open wounds at this time. Multiple wound Bilateral lower extremities.: Wound #1 Location: right dorsal forefoot Size: healed No associated signs and symptoms of infection at this time cellulitis is connected to the wound however there is no malodor no undermining no tracking and no serosanguineous drainage noted. Wound #1 Location: medial right ankle Size: 7.0 x 10.2 x 0.1 on June 09, 2020 Appearance: Heavily fibrotic on arrival. 90% fibrotic 10% granular Heavy fibrotic slough to the wound base. There is no apparent probe to bone. No undermining. No tracking. There is significant malodor. Serosanguineous drainage encountered. Deeply erythematous at the periwound border cellulitis does not extend past the ankle or the midfoot Wound #2 Location: Right second toe Healed 12/03/2019at this time. Wound #3 Location: medial ankle left Size: Healed 11/26/2019 Wound #4 Location: lateral left ankle Size: Healed 11/26/2019 Wound #5 Location: left posterior calf Size: Healed 11/26/2019 Wound #6 Location: Lateral right ankle distal Size: Healed 11/26/2019 Wound #7 Location medial aspect left ankle Size 2.7 x 3.5 x 0.1 Bolus blister with serous drainage Results - Labs Lab/Micro Results: Lab Results-Last 24 Hours 05/08/21 05/08/21 Range/Units 04:30 21:45 Potassium 3.6 D (3.5-5.1) mmol/L RPR Non Reactive (Non Reactive) - Radiology Impressions Radiology Exams & Impressions: Radiology Procedures Category Date Time Status CAROTID BILATERAL [US] Routine Exams 05/08/21 15:28 Completed CHEST 1 VIEW (PORTABLE) Stat Exams 05/07/21 20:21 Completed CHEST WITH CONTRAST [CT] Stat Exams 05/07/21 21:11 Completed HEAD WITHOUT CONTRAST [CT] Stat Exams 05/07/21 21:38 Completed MRA BRAIN WITHOUT CONTRAST [MRI] Routine Exams 05/08/21 03:26 Completed Assessment/Plan (1) Ulcer of extremity due to chronic venous insufficiency Status: Acute Assessment & Plan: Patient examination and evaluation. After intervention with Dr. Harper patient has has palpable pedal pulses to the bilateral lower extremity. He is deemed the intervention is excess. Debridement of wound venous ultrasound for left lower extremity pain performed today demonstrating Negative for deep vein thrombosis. Dressing change today consisting of Dakin's solution Betadine paint application of Xeroform over right ankle wound Unna boot 4 x 4 Aquacel Ag applied to the ou tside secured with Curlex and a Covan with moderate compression. Home health care presenting 2 times a week for changes. Home health care for dressings 2 times a week in addition to his visitations once weekly with us: Dressings to consist of to the right lower extremity: Dakin solution wash, sterile saline cleanse, Betadine paint application of a Xeroform over the right ankle wound Unna boot 4 x 4 and Aquacel Ag applied over the wound outside of the level of the Unna boot Curlex and a Coban applied with moderate compression. Left lower extremity has improved significantly at this time and a size D Tubigrip was provided in order to provide continuous compression. Recommendation for Aquacel Ag to the left lower extremity secondary to the significant xerotic changes. Okay for discharge follow-up in 1 week Code(s): L98.499 - NON-PRESSURE CHRONIC ULCER OF SKIN OF SITES W UNSP SEVERITY; I87.2 - VENOUS INSUFFICIENCY (CHRONIC) (PERIPHERAL) (2) Localized edema Status: Acute Code(s): R60.0 - LOCALIZED EDEMA (3) Psoriasis and similar disorders Status: Acute Code(s): L40.9 - PSORIASIS, UNSPECIFIED (4) Cellulitis Status: Acute Qualifiers: Site of cellulitis: extremity Site of cellulitis of extremity: lower extremity Laterality: right Qualified Code(s): L03.115 - Cellulitis of right lower limb Code(s): L03.90 - CELLULITIS, UNSPECIFIED
[2021-05-10] MEDS ORDERED: THIAMINE IV ONE (10:00)
[2021-05-10] MEDS ORDERED: SODIUM CHLORIDE 0.9% IV ONE (10:00)
== END 2021-05-09 14:10 | disposition home or self-care (01) ==
LOC: ED 20:08 → MED SURG 05-08 03:19
PROVIDERS: ADMIT Family Medicine; ATTEND General Practice
DX: I25.119 Atherosclerotic heart disease of native coronary artery with unspecified angina pectoris (principal); J44.1 Chronic obstructive pulmonary disease with (acute) exacerbation; L98.499 Non-pressure chronic ulcer of skin of other sites with unspecified severity; R41.0 Disorientation, unspecified; I10 Essential (primary) hypertension; R79.89 Other specified abnormal findings of blood chemistry; G93.40 Encephalopathy, unspecified; L03.115 Cellulitis of right lower limb; L40.9 Psoriasis, unspecified; Z72.0 Tobacco use; Z20.828 Contact with and (suspected) exposure to other viral communicable diseases; Z79.899 Other long term (current) drug therapy
CPT/HCPCS: 0241U; 36415; 70450; 70544; 71045; 71260; 80048; 80053; 82140; 82607; 83605; 83690; 83880; 84132; 84134; 84443; 84484; 85025; 85027; 85379; 86592; 93005; 93041; 93268; 93880; 94640; 94760; 99284; G0378; 11042; 99222; J0456; J3360; J3480; A9270-GY

== ENCOUNTER 2021-07-15 21:48 | Emergency (ER) | payer MEDICARE ==
--- NOTE | 2021-07-15 21:56 | ERPHSYRPT ---
- History of Present Illness Time Seen by Provider: 07/15/21 21:55 Source: patient Exam Limitations: no limitations Physician History: This is a 70-year-old left-handed white male patient of Dr. Christensen who presents with some redness of the right elbow that started yesterday and worsened and increased this morning and throughout the day. Patient has multiple medical problems including hyponatremia, hypertension, cirrhosis, coronary disease and COPD. Patient does not recall any specific injury to this area. He has never had anything like this before. Occurred: this morning (Worsened), yesterday (Began) Method of Injury: other (No known) Quality: aching Severity of Pain-Max: mild Severity of Pain-Current: mild Extremities Pain Location: elbow: right Modifying Factors: Improves With: movement Allergies/Adverse Reactions: Penicillins Allergy (Verified 05/07/21 20:34) Home Medications: Aspirin EC 325 mg [Ecotrin 325 MG] 325 mg PO DAILY 02/18/19 [History] Cholecalciferol (Vitamin D3) [Vitamin D3] 1 cap PO DAILY 05/08/21 [History] Lisinopril/Hydrochlorothiazide [Lisinopril-Hctz 20-12.5 mg Tab] 1 tab PO DAILY 05/08/21 [History] Sodium Chloride 1 tab PO TID 05/08/21 [History] Hx Tetanus, Diphtheria Vaccination/Date Given: (unk) Hx Influenza Vaccination/Date Given: No Hx Pneumococcal Vaccination/Date Given: No Travel Risk - International Travel Have you traveled outside of the country in past 3 weeks: No - Coronavirus Screening Are you exhibiting any of the following symptoms?: No Close contact with a COVID-19 positive Pt in past 14-21 Days: No - Vaccine Status Have you recieved a Covid-19 vaccination: No - Review of Systems Constitutional: No Symptoms Eyes: No Symptoms Ears, Nose, & Throat: No Symptoms Respiratory: No Symptoms Cardiac: No Symptoms Abdominal/Gastrointestinal: No Symptoms Genitourinary Symptoms: No Symptoms Musculoskeletal: Joint Swelling (Right elbow) Skin: Cellulitis (Skin overlying right elbow) Neurological: No Symptoms Psychological: No Symptoms Endocrine: No Symptoms Hematologic/Lymphatic: No Symptoms Immunological/Allergic: No Symptoms All Other Systems: Reviewed and Negative - Past Medical History Pertinent Past Medical History: Yes Neurological History: No Pertinent History ENT History: No Pertinent History Cardiac History: Hypertension Respiratory History: No Pertinent History Endocrine Medical History: No Pertinent History Musculoskeletal History: No Pertinent History GI Medical History: No Pertinent History History: No Pertinent History Psycho-Social History: No Pertinent History Male Reproductive Disorders: No Pertinent History Other Medical History: [place], Stent x 2 in right le and 1 in left femoral artery. Patient is a poor historian. History recalled from previous admission - Past Surgical History Past Surgical History: Yes Neuro Surgical History: No Pertinent History Cardiac: Vascular Surgery Respiratory: No Pertinent History Gastrointestinal: No Pertinent History Genitourinary: No Pertinent History Musculoskeletal: No Pertinent History Male Surgical History: No Pertinent History Other Surgical History: stent to tono femoral artery, caroditectomy. Patient is a poor historian. History recalled from previous admission. - Social History Smoking Status: Current every day smoker How long have you smoked: years Exposure to second hand smoke: No Drug Use: none Patient Lives Alone: Yes - Nursing Vital Signs Nursing Vital Signs: Initial Vital Signs Temperature 98.1 F 07/15/21 21:53 Pulse Rate 83 07/15/21 21:53 Respiratory Rate 18 07/15/21 21:53 Blood Pressure 155/69 07/15/21 21:53 O2 Sat by Pulse Oximetry 100 07/15/21 21:53 Pain Scale Pain Intensity 10 - Physical Exam General Appearance: no apparent distress, alert Eyes, Ears, Nose, Throat Exam: normal ENT inspection, moist mucous membranes Neck Exam: normal inspection, non-tender, supple, full range of motion Cardiovascular/Respiratory Exam: chest non-tender, no respiratory distress Abdominal Exam: non-tender Back Exam: normal inspection, normal range of motion, No CVA tenderness, No vertebral tenderness Shoulder Exam: normal inspection, non-tender, no evidence of injury, normal ROM Elbow/Forearm Exam: soft tissue tenderness, swelling (With associated redness skin overlying right elbow) Wrist Exam: normal inspection, non-tender, no evidence of injury, normal ROM Hand Exam: normal inspection, non-tender, no evidence of injury, normal ROM Neuro/Tendon Exam: normal sensation, normal motor functions, normal tendon functions, responds to pain Mental Status Exam: alert, oriented x 3, cooperative Skin Exam: other (Cellulitis of skin overlying right elbow) SpO2 Interpretation: normal O2 Delivery: Room Air - Course Nursing assessment & vital signs reviewed: Yes Ordered Tests: Medication Summary Discontinued Medications Generic Name Dose Route Start Last Admin Trade Name Rika PRN Reason Stop Dose Admin Levofloxacin 500 mg 07/15/21 22:10 Levofloxacin 500 Mg Tablet PO 07/15/21 22:11 STAT ONE - Progress Counseled pt/family regarding: diagnosis, need for follow-up - Departure Departure Disposition: Home Clinical Impression: Cellulitis, Bursitis, Dry skin Condition: Stable Critical Care Time: No Referrals: TASIA CHRISTENSEN MD [Primary Care Provider] - [facility] [phone] (Patient with right elbow bursitis and overlying skin cellulitis) Additional Instructions: Moisten your skin generally and specifically your arms and legs, with moisturizing lotion twice a day. Keep your skin clean. Take your medication as prescribed. Follow-up with [facility] orthopedic clinic on Saturday 8 AM. You do not need an appointment is a walk-in clinic. Use your Matty wrap for compression. Take Tylenol for pain control
[2021-07-15] MEDS ORDERED: Levofloxacin 500 MG Tablet PO ONE (22:10)
[2021-07-15] MEDS ORDERED: Levofloxacin 500 MG Tablet ONE (22:14)
[2021-07-15 22:15] VITALS: BP 132/69; PULSE 80; O2SAT 98
== END 2021-07-15 22:32 | disposition home or self-care (01) ==
LOC: ED 21:48
DX: L03.113 Cellulitis of right upper limb (principal); M70.31 Other bursitis of elbow, right elbow; L85.3 Xerosis cutis; I10 Essential (primary) hypertension; J44.9 Chronic obstructive pulmonary disease, unspecified; Z72.0 Tobacco use; Z79.899 Other long term (current) drug therapy
CPT/HCPCS: 99283; A9270-GY

== ENCOUNTER 2021-07-21 10:25 | Emergency (ER) | payer MEDICARE ==
[2021-07-21 11:25] LABS: Absolute Neutrophil Ct (ANC) 7.55 (1.4-6.9); Basophil (Absolute #) 0.04 (0-0.4); Hematocrit 38.1 % (42-50); Hemoglobin 13.1 gm/dl (12.5-18.0); Lymphocyte (Absolute #) 1.63 (1.0-4.6); Lymphocytes % 15.6 % (24.0-44.0); Mean Cell Volume 89.2 fl (78-100); Mean Corpuscular Hemoglobin 30.7 pg (26-32); Mean Corpuscular Hgb Concent. 34.4 g/dl (32-36); Mean Platelet Volume 9.7 fl (7.5-11.0); Monocyte (Absolute #) 1.11 (0.0-1.3); Monocytes % 10.6 % (0.0-12.0); Neutrophil % 72.4 % (36.0-66.0); Platelet Count 279 K/mm3 (150-450); Red Blood Count 4.27 M/mm3 (4.1-5.6); Red Cell Distribution Width 13.8 % (11.5-14.0); White Blood Count 10.4 K/mm3 (4.0-10.5)
[2021-07-21 11:39] LABS: ALBUMIN 3.8 g/dL (3.5-5.0); ALKALINE PHOSPHATASE 192 U/L (38-126); ANION GAP 12.9 MEQ/L (5-15); BLOOD UREA NITROGEN 16 mg/dL (9-20); CHLORIDE 89 mmol/L (98-107); Calcium 8.5 mg/dL (8.4-10.2); Carbon Dioxide 29 mmol/L (22-30); Creatinine 1 0.66 mg/dL (0.66-1.25); EST GLOMERULAR FILTRATION RATE > 60.0 ML/MIN; Glucose 195 mg/dL (74-106); Potassium 3.7 mmol/L (3.5-5.1); SGOT/AST 43 U/L (17-59); SGPT/ALT 37 U/L (0-50); SODIUM 127 mmol/L (137-145); Total Protein 7.4 g/dL (6.3-8.2)
--- NOTE | 2021-07-21 12:17 | ERPHSYRPT ---
- History of Present Illness Source: patient Exam Limitations: other (Poor historian) Patient Subjective Stated Complaint: Pt states "I was here on saturday for the same thing but now my right elbow is much bigger." Triage Nursing Assessment: Pt presented alert and oriented X3, skin wpd Pt ambulates with an upright steady gait, able to speak in clear full sentences pt right elbow swolen, red and warm to touch. Physician History: 70 yo wm w R olecranon edema/erythema x 2 wks. Pt seen in ER 07/15/21 and was placed on Levaquin. He was supposed to f/u w the ortho clinic but did not. He states that the edema/erythema are worse. Fever/injury are denied. Occurred: other (2 wks) Method of Injury: unknown Quality: aching Severity of Pain-Max: moderate Severity of Pain-Current: moderate Extremities Pain Location: elbow: right Modifying Factors: Improves With: nothing, movement Associated Symptoms: No back pain, No chills, No chest discomfort, No chest pain, No dyspnea, No fever, No jaw pain, No nausea, No neck pain, No sweating, No short of breath, No vomiting Allergies/Adverse Reactions: Penicillins Allergy (Verified 05/07/21 20:34) Home Medications: Aspirin EC 325 mg [Ecotrin 325 MG] 325 mg PO DAILY 02/18/19 [History] Cholecalciferol (Vitamin D3) [Vitamin D3] 1 cap PO DAILY 05/08/21 [History] Lisinopril/Hydrochlorothiazide [Lisinopril-Hctz 20-12.5 mg Tab] 1 tab PO DAILY 05/08/21 [History] Sodium Chloride 1 tab PO TID 05/08/21 [History] Hx Tetanus, Diphtheria Vaccination/Date Given: (unk) Hx Influenza Vaccination/Date Given: No Hx Pneumococcal Vaccination/Date Given: No Immunizations Up to Date: Yes Travel Risk - International Travel Have you traveled outside of the country in past 3 weeks: No - Coronavirus Screening Are you exhibiting any of the following symptoms?: No Close contact with a COVID-19 positive Pt in past 14-21 Days: No - Vaccine Status Have you recieved a Covid-19 vaccination: No - Review of Systems Constitutional: No Symptoms Eyes: No Symptoms Ears, Nose, & Throat: No Symptoms Respiratory: No Symptoms Cardiac: No Symptoms Abdominal/Gastrointestinal: No Symptoms Genitourinary Symptoms: No Symptoms Musculoskeletal: No Symptoms, Arthralgias Skin: No Symptoms, Cellulitis Neurological: No Symptoms Psychological: No Symptoms Endocrine: No Symptoms Hematologic/Lymphatic: No Symptoms Immunological/Allergic: No Symptoms - Past Medical History Pertinent Past Medical History: Yes Neurological History: No Pertinent History ENT History: No Pertinent History Cardiac History: Hypertension Respiratory History: No Pertinent History Endocrine Medical History: No Pertinent History Musculoskeletal History: No Pertinent History GI Medical History: No Pertinent History History: No Pertinent History Psycho-Social History: No Pertinent History Male Reproductive Disorders: No Pertinent History Other Medical History: [place], Stent x 2 in right le and 1 in left femoral artery. Patient is a poor historian. History recalled from previous admission - Past Surgical History Past Surgical History: Yes Neuro Surgical History: No Pertinent History Cardiac: Vascular Surgery Respiratory: No Pertinent History Gastrointestinal: No Pertinent History Genitourinary: No Pertinent History Musculoskeletal: No Pertinent History Male Surgical History: No Pertinent History Other Surgical History: stent to tono femoral artery, caroditectomy. Patient is a poor historian. History recalled from previous admission. - Social History Smoking Status: Current every day smoker How long have you smoked: years Exposure to second hand smoke: No Drug Use: none Patient Lives Alone: Yes Significant Family History: no pertinent family hx - Nursing Vital Signs Nursing Vital Signs: Initial Vital Signs Temperature 97.7 F 07/21/21 10:29 Pulse Rate 80 07/21/21 10:29 Respiratory Rate 20 07/21/21 10:29 Blood Pressure 158/84 07/21/21 10:29 O2 Sat by Pulse Oximetry 98 07/21/21 10:29 Pain Scale Pain Intensity 0 Hypertensive - Physical Exam General Appearance: no apparent distress Eyes, Ears, Nose, Throat Exam: normal ENT inspection, TMs normal, pharynx normal, moist mucous membranes Neck Exam: normal inspection, non-tender, supple, full range of motion Cardiovascular/Respiratory Exam: normal breath sounds, regular rate/rhythm, heart sounds normal Abdominal Exam: non-tender, soft, no organomegaly Back Exam: normal inspection, normal range of motion, No CVA tenderness, No vertebral tenderness Shoulder Exam: normal inspection, non-tender Elbow/Forearm Exam: swelling (R olecranon edematous/erythematous/TTP/good radial pulse, distal sensation, and capillary return) Wrist Exam: normal inspection, non-tender, no evidence of injury Hand Exam: normal inspection, non-tender, no evidence of injury DTR - Upper Extremity Exam: bicep (R): 2+, bicep (L): 2+ Neuro/Tendon Exam: normal sensation, normal motor functions, normal tendon functions, responds to pain, no evidence tendon injury, No motor deficit, No sensory deficit Mental Status Exam: alert, oriented x 3, cooperative, agitated Skin Exam: normal color SpO2 Interpretation: normal SpO2: 98 O2 Delivery: Room Air - Course Nursing assessment & vital signs reviewed: Yes Ordered Tests: Active Orders 24 hr Category Date Time Status BLOOD CULTURE Stat Lab 07/21/21 Received CBC W DIFF Stat Lab 07/21/21 11:10 Completed CMP Stat Lab 07/21/21 11:10 Completed CULTURE,WOUND Stat Lab 07/21/21 11:06 Ordered Lactic Acid Routine Lab 07/21/21 14:47 Completed Lactic Acid Stat Lab 07/21/21 11:10 Completed Medication Summary Discontinued Medications Generic Name Dose Route Start Last Admin Trade Name Rika PRN Reason Stop Dose Admin Sodium Chloride 1,000 mls @ 999 mls/hr 07/21/21 12:57 07/21/21 14:08 Sodium Chloride 0.9% 1000 Ml IV 07/21/21 13:57 Infused .Q1H1M STA Infusion Vancomycin HCl 1 gm in 200 mls @ 125 mls/hr 07/21/21 12:59 07/21/21 14:47 Vancomycin 1 Gram/200 Ml Bag IV 07/21/21 14:34 Infused STAT ONE Infusion Sodium Chloride Confirm 07/21/21 12:58 Sodium Chloride 0.9% 1000 Ml Administered 07/21/21 12:59 Dose 1,000 mls @ ud .ROUTE .STK-MED ONE Vancomycin HCl Confirm 07/21/21 12:58 Vancomycin 1 Gram/200 Ml Bag Administered 07/21/21 12:59 Dose 1 gm in 200 mls @ ud IV .STK-MED ONE Lab/Rad Data: Laboratory Result Diagrams 07/21/21 11:10 07/21/21 11:10 Laboratory Results 07/21/21 07/21/21 07/21/21 Range/Units 14:47 13:00 11:10 WBC (4.0-10.5) K/mm3 RBC (4.1-5.6) M/mm3 Hgb (12.5-18.0) gm/dl Hct (42-50) % MCV (78-100) fl MCH (26-32) pg MCHC (32-36) g/dl RDW (11.5-14.0) % Plt Count (150-450) K/mm3 MPV (7.5-11.0) fl Gran % (36.0-66.0) % Eos # (Auto) (0-0.5) Absolute Lymphs (auto) (1.0-4.6) Absolute Monos (auto) (0.0-1.3) Lymphocytes % (24.0-44.0) % Monocytes % (0.0-12.0) % Eosinophils % (0.00-5.0) % Basophils % (0.0-0.4) % Absolute Granulocytes (1.4-6.9) Basophils # (0-0.4) Sodium (137-145) mmol/L Potassium (3.5-5.1) mmol/L Chloride (98-107) mmol/L Carbon Dioxide (22-30) mmol/L Anion Gap (5-15) MEQ/L BUN (9-20) mg/dL Creatinine (0.66-1.25) mg/dL Estimated GFR ML/MIN Glucose (74-106) mg/dL Lactic Acid 0.8 2.2 H (0.4-2.0) Calcium (8.4-10.2) mg/dL Total Bilirubin (0.2-1.3) mg/dL AST (17-59) U/L ALT (0-50) U/L Alkaline Phosphatase (38-126) U/L Serum Total Protein (6.3-8.2) g/dL Albumin (3.5-5.0) g/dL Influenza Type A Ag NEGATIVE (NEGATIVE) Influenza Type B Ag NEGATIVE (NEGATIVE) RSV (PCR) NEGATIVE (Negative) SARS-CoV-2 (PCR) NEGATIVE (NEGATIVE) 07/21/21 07/21/21 Range/Units 11:10 11:10 WBC 10.4 (4.0-10.5) K/mm3 RBC 4.27 (4.1-5.6) M/mm3 Hgb 13.1 (12.5-18.0) gm/dl Hct 38.1 L (42-50) % MCV 89.2 (78-100) fl MCH 30.7 (26-32) pg MCHC 34.4 (32-36) g/dl RDW 13.8 (11.5-14.0) % Plt Count 279 (150-450) K/mm3 MPV 9.7 (7.5-11.0) fl Gran % 72.4 H (36.0-66.0) % Eos # (Auto) 0.10 (0-0.5) Absolute Lymphs (auto) 1.63 (1.0-4.6) Absolute Monos (auto) 1.11 (0.0-1.3) Lymphocytes % 15.6 L (24.0-44.0) % Monocytes % 10.6 (0.0-12.0) % Eosinophils % 1.0 (0.00-5.0) % Basophils % 0.4 (0.0-0.4) % Absolute Granulocytes 7.55 H (1.4-6.9) Basophils # 0.04 (0-0.4) Sodium 127 L (137-145) mmol/L Potassium 3.7 (3.5-5.1) mmol/L Chloride 89 L (98-107) mmol/L Carbon Dioxide 29 (22-30) mmol/L Anion Gap 12.9 (5-15) MEQ/L BUN 16 (9-20) mg/dL Creatinine 0.66 (0.66-1.25) mg/dL Estimated GFR > 60.0 ML/MIN Glucose 195 H (74-106) mg/dL Lactic Acid (0.4-2.0) Calcium 8.5 (8.4-10.2) mg/dL Total Bilirubin 0.60 (0.2-1.3) mg/dL AST 43 (17-59) U/L ALT 37 (0-50) U/L Alkaline Phosphatase 192 H (38-126) U/L Serum Total Protein 7.4 (6.3-8.2) g/dL Albumin 3.8 (3.5-5.0) g/dL Influenza Type A Ag (NEGATIVE) Influenza Type B Ag (NEGATIVE) RSV (PCR) (Negative) SARS-CoV-2 (PCR) (NEGATIVE) - Progress Progress: improved Progress Note: 07/21/21 13:14 R olecranon-anesthesia 1% Lido w epi/alcohol prep/1ml fluid drained from R olecranon bursa/sent to lab for culture/No comps Spoke w Dr. Christensen about admit, wants to arrange IV antibiotics as an outpt 07/21/21 14:47 1gm IV Vancomycin Pharmacy arranged for pt to receive 500mg IV Daptomycin daily at 10AM for 10-14 days Pt's Lactate decreased after 1L NS bolus Counseled pt/family regarding: lab results, diagnosis, need for follow-up - Departure Departure Disposition: Home Clinical Impression: Infected olecranon bursa Condition: Stable Critical Care Time: No Referrals: TASIA CHRISTENSEN MD [Primary Care Provider] - Follow up/PCP as directed Instructions: Olecranon Bursitis (DC) Additional Instructions: Return to infusion center every day at 10:00 for Daptomycin infusion Return to ER for increasing redness/swelling/temperature greater than 100.5
[2021-07-21] MEDS ORDERED: Sodium Chloride 0.9% 1000 ML 1,000 ML IV STA (12:57)
[2021-07-21] MEDS ORDERED: Sodium Chloride 0.9% 1000 ML 1,000 ML ONE (12:58)
[2021-07-21] MEDS ORDERED: VANCOMYCIN 1 GRAM/200 ML BAG 1 GM/200 ML PIGGYBACK IV ONE ×2 (12:58→12:59)
[2021-07-21 13:16] VITALS: O2SAT 98
[2021-07-21 13:24] LABS: INFLUENZA A NEGATIVE (NEGATIVE); INFLUENZA B NEGATIVE (NEGATIVE); RESPIRATORY SYNCTIAL VIRUS NEGATIVE (Negative); SARS-CoV-2 Xpert Express NEGATIVE (NEGATIVE)
[2021-07-21 14:48] VITALS: BP 140/58; PULSE 74
== END 2021-07-21 14:58 | disposition home or self-care (01) ==
LOC: ED 10:25
DX: M71.121 Other infective bursitis, right elbow (principal); I10 Essential (primary) hypertension; Z72.0 Tobacco use; Z79.899 Other long term (current) drug therapy
CPT/HCPCS: 0241U; 20605; 36000; 36415; 80053; 83605; 85025; 87040; 87070; 87077; 87186; 96360; 96365; 96366; 99284; J3370

== ENCOUNTER 2021-09-03 21:12 | Emergency (ER) | payer MEDICARE ==
[2021-09-03 22:38] LABS: Mucus SLIGHT /HPF (NEGATIVE)
[2021-09-03 22:39] LABS: Appearance CLEAR (CLEAR); Bilirubin NEGATIVE (NEGATIVE); Dipstick done @ ? MAIN LAB; Glucose NEGATIVE (NEGATIVE); Ketones NEGATIVE (NEGATIVE); Nitrite NEGATIVE (NEGATIVE); Protein,Urine Dip NEGATIVE (Negative); RBC TRACE-INTACT Ery/ul (0-5); Specific Gravity 1.015 (1.005-1.025); Urobilinogen 0.2 mg/dL (0-1)
[2021-09-03 22:40] LABS: Bacteria NONE SEEN /HPF (NEGATIVE); Urine Cultured Indicated? YES
--- NOTE | 2021-09-03 22:46 | ERPHSYRPT ---
- History of Present Illness Time Seen by Provider: 09/03/21 22:41 Source: patient Exam Limitations: no limitations Patient Subjective Stated Complaint: pt was diagnosed with uti 2 days ago and states that its still hurts when he urinates. he is on anntbiotics. still having urinary frequency, states his Dr saw his results and called him and told him to go to ER because there was blood in his urine. Triage Nursing Assessment: pt is alert and oriented, BP elevated at 168/87. temp 97.3. responds to all questions apppropriatly. Physician History: pt was diagnosed with UTI and began treatment and feels fine except for burning, . kristie diet and no vomiting. abd nontender. no discharge or symptoms otherwise down below. they told him that he had blood in urine and that is why he came in; but we explained that it is frequently from the UTI and should be evaluated to see if it resolved after Tx and proceed. Timing/Duration: day(s) Activites at Onset: none Onset Location: suprapubic Pain Radiation: none Severity of Pain-Max: mild Severity of Pain-Current: mild Modifying Factors: Improves With: nothing Associated Symptoms: denies symptoms Prior abdominal problems: none Sexual intercourse history: non-contributory Allergies/Adverse Reactions: Penicillins Allergy (Verified 05/07/21 20:34) Home Medications: Aspirin EC 325 mg [Ecotrin 325 MG] 325 mg PO DAILY 02/18/19 [History] Lisinopril/Hydrochlorothiazide [Lisinopril-Hctz 20-12.5 mg Tab] 1 tab PO DAILY 05/08/21 [History] Hx Tetanus, Diphtheria Vaccination/Date Given: No Hx Influenza Vaccination/Date Given: No Hx Pneumococcal Vaccination/Date Given: No Immunizations Up to Date: No Travel Risk - International Travel Have you traveled outside of the country in past 3 weeks: No - Coronavirus Screening Are you exhibiting any of the following symptoms?: No Close contact with a COVID-19 positive Pt in past 14-21 Days: No - Vaccine Status Have you recieved a Covid-19 vaccination: No - Past Medical History Pertinent Past Medical History: Yes Neurological History: No Pertinent History ENT History: No Pertinent History Cardiac History: Congestive Heart Failure, Hypertension Respiratory History: COPD Endocrine Medical History: No Pertinent History Musculoskeletal History: No Pertinent History GI Medical History: Other History: No Pertinent History Psycho-Social History: No Pertinent History Male Reproductive Disorders: No Pertinent History Other Medical History: [place], Stent x 2 in right le and 1 in left femoral artery. Patient is a poor historian. History recalled from previous admission. pt denies health problems pt family member (stated she is a niece). reported that pt is in denial of health problems he has liver disease, CHF, and COPD. - Past Surgical History Past Surgical History: Yes Neuro Surgical History: No Pertinent History Cardiac: Vascular Surgery Respiratory: No Pertinent History Gastrointestinal: No Pertinent History Genitourinary: No Pertinent History Musculoskeletal: No Pertinent History Male Surgical History: No Pertinent History Other Surgical History: stent to tono femoral artery, caroditectomy. Patient is a poor historian. History recalled from previous admission. - Social History Smoking Status: Current every day smoker How long have you smoked: years Exposure to second hand smoke: No Drug Use: none Patient Lives Alone: Yes Significant Family History: no pertinent family hx - Review of Systems Constitutional: No Fever, No Chills Eyes: No Symptoms Ears, Nose, & Throat: No Symptoms Respiratory: No Cough, No Dyspnea Cardiac: No Chest Pain, No Edema, No Syncope Abdominal/Gastrointestinal: No Abdominal Pain, No Nausea, No Vomiting, No Diarrhea Genitourinary Symptoms: Dysuria Musculoskeletal: No Symptoms, No Back Pain, No Neck Pain Skin: No Symptoms, No Rash Neurological: No Dizziness, No Focal Weakness, No Sensory Changes Psychological: No Symptoms Endocrine: No Symptoms Hematologic/Lymphatic: No Symptoms Immunological/Allergic: No Symptoms All Other Systems: Reviewed and Negative - Nursing Vital Signs Nursing Vital Signs: Initial Vital Signs Respiratory Rate 18 05/29/22 22:07 Pain Scale Pain Intensity 6 - Physical Exam General Appearance: no apparent distress, alert Eye Exam: PERRL/EOMI Ears, Nose, Throat Exam: pharynx normal, moist mucous membranes Neck Exam: normal inspection, supple Respiratory Exam: normal breath sounds, lungs clear Cardiovascular Exam: regular rate/rhythm, No edema Gastrointestinal/Abdomen Exam: soft, No tenderness Back Exam: normal inspection, No CVA tenderness Extremity Exam: normal inspection, normal range of motion, No pedal edema Neurologic Exam: alert, oriented x 3, cooperative, sensation nml, No motor deficits Skin Exam: normal color, warm, dry, No rash - Course Nursing assessment & vital signs reviewed: Yes Ordered Tests: Active Orders 24 hr Category Date Time Status UA W/RFX CULTURE Stat Lab 09/03/21 22:24 Results Lab/Rad Data: Laboratory Results 09/03/21 Range/Units 22:24 Urinalys Dipstick Clnc MAIN LAB Urine Color YELLOW (YELLOW) Urine Appearance CLEAR (CLEAR) Urine pH 7.0 (5-6) Ur Specific Dudley 1.015 (1.005-1.025) POC Urine Protein Conf NEGATIVE (Negative) Urine Ketones NEGATIVE (NEGATIVE) Urine Nitrite NEGATIVE (NEGATIVE) Urine Bilirubin NEGATIVE (NEGATIVE) Urine Urobilinogen 0.2 (0-1) mg/dL Urine Leukocytes SMALL (NEGATIVE) Urine WBC (Auto) 16-25 (0-5) /HPF Urine RBC (Auto) 3-5 (0-2) /HPF U Epithel Cells (Auto) NONE (FEW) /HPF Urine Bacteria (Auto) NONE SEEN (NEGATIVE) /HPF Urine RBC TRACE-INTACT (0-5) Milton/ul Urine Mucus (Auto) SLIGHT (NEGATIVE) /HPF Ur Culture Indicated? YES Urine Glucose NEGATIVE (NEGATIVE) mg/dL - Progress Progress: improved, re-examined Counseled pt/family regarding: diagnosis, need for follow-up - Departure Departure Disposition: Home Clinical Impression: Urinary tract infection with hematuria Condition: Good Critical Care Time: No Referrals: [facility] [Primary Care Provider] - Follow up/PCP as directed Instructions: Urinary Tract Infection, Adult (DC), Blood in the Urine (Hematuria), Adult (DC) Additional Instructions: Have urine rechecked after antibiotics to confirm blood has resolved and have evaluation if indicated . return meantime if not improving or any other symptoms of concern. Prescriptions: Phenazopyridine HCl 200 mg [Pyridium 200 mg] 200 mg PO TID #10 tablet
[2021-09-03] MEDS ORDERED: PYRIDIUM 200 MG PO SCH (22:57)
[2021-09-03] MEDS ORDERED: PYRIDIUM 200 MG ONE (22:58)
[2021-09-04] MEDS ORDERED: Vitamin B-6 (Pyridoxine) 100 MG PO ONE (22:50)
== END 2021-09-03 22:59 | disposition home or self-care (01) ==
LOC: ED 21:12
DX: N39.0 Urinary tract infection, site not specified (principal); R31.9 Hematuria, unspecified; R30.0 Dysuria; I11.0 Hypertensive heart disease with heart failure; I50.9 Heart failure, unspecified; J44.9 Chronic obstructive pulmonary disease, unspecified; Z72.0 Tobacco use; Z79.899 Other long term (current) drug therapy
CPT/HCPCS: 81015; 87077; 87086; 87186; 99283; A9270-GY

== ENCOUNTER 2021-09-05 18:40 | Observation (INO) | payer MEDICARE ==
--- NOTE | 2021-09-05 18:47 | ERPHSYRPT ---
- History of Present Illness Time Seen by Provider: 09/05/21 18:47 Source: patient Exam Limitations: no limitations Physician History: This is a 70-year-old male patient of Dr. Christensen and presents with dysuria and urinary frequency. He was diagnosed with urinary tract infection approximately 4 days ago and was started on antibiotics. 2 days ago, 09/03/2021 patient was started on Pyridium. Patient is here today because of his multiple medical problems and difficulty caring for himself. Patient has a history of CHF, hypertension, COPD, coronary artery disease with cardiac stents, peripheral vascular disease with bilateral femoral artery stents and a carotid end arterectomy as well as chronic liver disease. He is a current daily smoker of cigarettes. Patient's family's states that he was told he needed a 3-day stay in the hospital in order to be admitted into a correction. I spoke with Dr. Christensen, the patient's primary care physician regarding this issue. He stated to perform the work-up I would normally do an see if the patient qualifies for placement observation or admission. If he does not qualify for for placement in the hospital under observation or admission status, he will need to be evaluated as an outpatient for qualification for correction placement. This was discussed with the patient and his family member who helps care for him. Patient denies chest pain. He denies shortness of breath. He has no abdominal pain. Timing/Duration: day(s) Activites at Onset: none (Over several days) Quality: burning (Urination) Pain Radiation: none Severity of Pain-Max: mild Severity of Pain-Current: mild Modifying Factors: Improves With: nothing Associated Symptoms: dysuria, urinary frequency Prior abdominal problems: none Sexual intercourse history: non-contributory Allergies/Adverse Reactions: Penicillins Allergy (Verified 05/07/21 20:34) Home Medications: Aspirin EC 325 mg [Ecotrin 325 MG] 325 mg PO DAILY 02/18/19 [History] Lisinopril/Hydrochlorothiazide [Lisinopril-Hctz 20-12.5 mg Tab] 1 tab PO DAILY 05/08/21 [History] Ciprofloxacin [Cipro 500 MG] 500 mg PO BID 09/05/21 [History] Hx Tetanus, Diphtheria Vaccination/Date Given: No Hx Influenza Vaccination/Date Given: No Hx Pneumococcal Vaccination/Date Given: No Travel Risk - International Travel Have you traveled outside of the country in past 3 weeks: No - Coronavirus Screening Are you exhibiting any of the following symptoms?: No Close contact with a COVID-19 positive Pt in past 14-21 Days: No - Vaccine Status Have you recieved a Covid-19 vaccination: No - Past Medical History Pertinent Past Medical History: Yes Neurological History: No Pertinent History ENT History: No Pertinent History Cardiac History: Congestive Heart Failure, Hypertension Respiratory History: COPD Endocrine Medical History: No Pertinent History Musculoskeletal History: No Pertinent History GI Medical History: Other History: No Pertinent History Psycho-Social History: No Pertinent History Male Reproductive Disorders: No Pertinent History Other Medical History: [place], Stent x 2 in right le and 1 in left femoral artery. Patient is a poor historian. History recalled from previous admission. pt denies health problems pt family member (stated she is a niece). reported that pt is in denial of health problems he has liver disease, CHF, and COPD. - Past Surgical History Past Surgical History: Yes Neuro Surgical History: No Pertinent History Cardiac: Vascular Surgery Respiratory: No Pertinent History Gastrointestinal: No Pertinent History Genitourinary: No Pertinent History Musculoskeletal: No Pertinent History Male Surgical History: No Pertinent History Other Surgical History: stent to tono femoral artery, caroditectomy. Patient is a poor historian. History recalled from previous admission. - Social History Smoking Status: Current every day smoker How long have you smoked: years Exposure to second hand smoke: No Drug Use: none Patient Lives Alone: Yes Significant Family History: no pertinent family hx - Review of Systems Constitutional: No Symptoms Eyes: No Symptoms Ears, Nose, & Throat: No Symptoms Respiratory: No Symptoms Cardiac: No Symptoms Abdominal/Gastrointestinal: No Symptoms Genitourinary Symptoms: Dysuria, Frequency, Hematuria Musculoskeletal: No Symptoms Skin: No Symptoms Neurological: No Symptoms Psychological: No Symptoms Endocrine: No Symptoms Hematologic/Lymphatic: No Symptoms Immunological/Allergic: No Symptoms All Other Systems: Reviewed and Negative - Nursing Vital Signs Nursing Vital Signs: Initial Vital Signs Temperature 98.1 F 09/05/21 19:03 Pulse Rate 97 H 09/05/21 19:03 Respiratory Rate 20 09/05/21 19:03 Blood Pressure 161/92 09/05/21 19:03 O2 Sat by Pulse Oximetry 98 09/05/21 19:03 Pain Scale Pain Intensity 5 - Physical Exam General Appearance: no apparent distress, alert, anxiety Eye Exam: PERRL/EOMI, eyes nml inspection Ears, Nose, Throat Exam: normal ENT inspection, moist mucous membranes Neck Exam: normal inspection, non-tender, supple, full range of motion Respiratory Exam: normal breath sounds, lungs clear, airway intact, No chest tenderness, No respiratory distress Cardiovascular Exam: regular rate/rhythm, normal heart sounds, normal peripheral pulses Gastrointestinal/Abdomen Exam: soft, normal bowel sounds, tenderness Rectal Exam: not done Back Exam: normal inspection, normal range of motion, No CVA tenderness, No vertebral tenderness Extremity Exam: normal inspection, normal range of motion, pelvis stable Neurologic Exam: alert, oriented x 3, cooperative, setup operator II-XII nml as tested, normal mood/affect, nml cerebellar function, nml station & gait, sensation nml Skin Exam: normal color, warm, dry Lymphatic Exam: No adenopathy SpO2 Interpretation: normal O2 Delivery: Room Air - Course Nursing assessment & vital signs reviewed: Yes Ordered Tests: Active Orders 24 hr Category Date Time Status IV Insertion STAT Care 09/05/21 20:48 Active AMYLASE Stat Lab 09/05/21 21:00 Completed CBC W DIFF Stat Lab 09/05/21 21:00 Completed CMP Stat Lab 09/05/21 21:00 Completed CULTURE,URINE Stat Lab 09/05/21 21:00 Received LIPASE Stat Lab 09/05/21 21:00 Completed Lactic Acid Stat Lab 09/05/21 21:16 Completed UA W/RFX CULTURE Stat Lab 09/05/21 21:00 Completed Transfer Order Routine Transfer 09/05/21 Ordered Medication Summary Generic Name Dose Route Start Last Admin Trade Name Freq PRN Reason Stop Dose Admin Levofloxacin/Dextrose 500 mg in 100 mls @ 100 mls/hr 09/05/21 22:51 09/05/21 23:03 Levofloxacin 500mg/100ml D5w IV 09/05/21 23:50 100 mls/hr STAT STA 100 mls/hr Administration Sodium Chloride 1,000 mls @ 100 mls/hr 09/05/21 23:00 09/05/21 23:04 Sodium Chloride 0.9% 1000 Ml IV 10/05/21 22:59 100 mls/hr .Q10H VERNA Administration Discontinued Medications Generic Name Dose Route Start Last Admin Trade Name Freq PRN Reason Stop Dose Admin Sodium Chloride 1,000 mls @ 999 mls/hr 09/05/21 20:48 09/05/21 21:05 Sodium Chloride 0.9% 1000 Ml IV 09/05/21 21:48 999 mls/hr .Q1H1M STA Administration Sodium Chloride Confirm 09/05/21 21:04 Sodium Chloride 0.9% 1000 Ml Administered 09/05/21 21:05 Dose 1,000 mls @ ud .ROUTE .STK-MED ONE Levofloxacin/Dextrose Confirm 09/05/21 22:58 Levofloxacin 500mg/100ml D5w Administered 09/05/21 22:59 Dose 500 mg in 100 mls @ ud IV .STK-MED ONE Lab/Rad Data: Laboratory Result Diagrams 09/05/21 21:00 09/05/21 21:00 Laboratory Results 09/05/21 09/05/21 09/05/21 Range/Units 21:16 21:00 21:00 WBC (4.0-10.5) x10^3/uL RBC (4.1-5.6) x10^6/uL Hgb (12.5-18.0) g/dL Hct (42-50) % MCV (78-100) fL MCH (26-32) pg MCHC (32-36) g/dL RDW (11.5-14.0) % Plt Count (150-450) x10^3/uL MPV (7.5-11.0) fL Gran % (36.0-66.0) % Immature Gran % (Auto) (0.00-0.4) % Nucleat RBC Rel Count (0.00-0.1) % Eos # (Auto) (0-0.5) x10^3/uL Immature Gran # (Auto) (0.00-0.03) x10^3u/L Absolute Lymphs (auto) (1.0-4.6) x10^3/uL Absolute Monos (auto) (0.0-1.3) x10^3/uL Absolute Nucleated RBC (0.00-0.01) x10^3u/L Lymphocytes % (24.0-44.0) % Monocytes % (0.0-12.0) % Eosinophils % (0.00-5.0) % Basophils % (0.0-0.4) % Absolute Granulocytes (1.4-6.9) x10^3/uL Basophils # (0-0.4) x10^3/uL Sodium 126 L (137-145) mmol/L Potassium 4.6 (3.5-5.1) mmol/L Chloride 86 L (98-107) mmol/L Carbon Dioxide 33 H (22-30) mmol/L Anion Gap 11.8 (5-15) MEQ/L BUN 15 (9-20) mg/dL Creatinine 0.70 (0.66-1.25) mg/dL Estimated GFR > 60.0 ML/MIN Glucose 112 H (74-106) mg/dL Lactic Acid 1.1 (0.4-2.0) Calcium 9.0 (8.4-10.2) mg/dL Total Bilirubin 0.60 (0.2-1.3) mg/dL AST 28 (17-59) U/L ALT 28 (0-50) U/L Alkaline Phosphatase 174 H (38-126) U/L Serum Total Protein 7.2 (6.3-8.2) g/dL Albumin 3.7 (3.5-5.0) g/dL Amylase 70 (30-110) U/L Lipase 83 (23-300) U/L Urinalys Dipstick Clnc MAIN LAB Urine Color YELLOW (YELLOW) Urine Appearance CLEAR (CLEAR) Urine pH 7.5 (5-6) Ur Specific Fred 1.020 (1.005-1.025) POC Urine Protein Conf NEGATIVE (Negative) Urine Ketones NEGATIVE (NEGATIVE) Urine Nitrite NEGATIVE (NEGATIVE) Urine Bilirubin NEGATIVE (NEGATIVE) Urine Urobilinogen 0.2 (0-1) mg/dL Urine Leukocytes TRACE (NEGATIVE) Urine WBC (Auto) 16-25 (0-5) /HPF Urine RBC (Auto) 0-2 (0-2) /HPF U Epithel Cells (Auto) NONE (FEW) /HPF Urine Bacteria (Auto) NONE (NEGATIVE) /HPF Urine RBC NEGATIVE (0-5) Milton/ul Ur Culture Indicated? YES Urine Glucose NEGATIVE (NEGATIVE) mg/dL 09/05/21 Range/Units 21:00 WBC 15.1 H (4.0-10.5) x10^3/uL RBC 4.00 L (4.1-5.6) x10^6/uL Hgb 11.9 L (12.5-18.0) g/dL Hct 35.4 L (42-50) % MCV 88.5 (78-100) fL MCH 29.8 (26-32) pg MCHC 33.6 (32-36) g/dL RDW 13.5 (11.5-14.0) % Plt Count 358 (150-450) x10^3/uL MPV 8.5 (7.5-11.0) fL Gran % 75.9 H (36.0-66.0) % Immature Gran % (Auto) 0.5 H (0.00-0.4) % Nucleat RBC Rel Count 0.0 (0.00-0.1) % Eos # (Auto) 0.13 (0-0.5) x10^3/uL Immature Gran # (Auto) 0.07 H (0.00-0.03) x10^3u/L Absolute Lymphs (auto) 2.01 (1.0-4.6) x10^3/uL Absolute Monos (auto) 1.34 H (0.0-1.3) x10^3/uL Absolute Nucleated RBC 0.00 (0.00-0.01) x10^3u/L Lymphocytes % 13.3 L (24.0-44.0) % Monocytes % 8.9 (0.0-12.0) % Eosinophils % 0.9 (0.00-5.0) % Basophils % 0.5 (0.0-0.4) % Absolute Granulocytes 11.52 H (1.4-6.9) x10^3/uL Basophils # 0.07 (0-0.4) x10^3/uL Sodium (137-145) mmol/L Potassium (3.5-5.1) mmol/L Chloride (98-107) mmol/L Carbon Dioxide (22-30) mmol/L Anion Gap (5-15) MEQ/L BUN (9-20) mg/dL Creatinine (0.66-1.25) mg/dL Estimated GFR ML/MIN Glucose (74-106) mg/dL Lactic Acid (0.4-2.0) Calcium (8.4-10.2) mg/dL Total Bilirubin (0.2-1.3) mg/dL AST (17-59) U/L ALT (0-50) U/L Alkaline Phosphatase (38-126) U/L Serum Total Protein (6.3-8.2) g/dL Albumin (3.5-5.0) g/dL Amylase (30-110) U/L Lipase (23-300) U/L Urinalys Dipstick Clnc Urine Color (YELLOW) Urine Appearance (CLEAR) Urine pH (5-6) Ur Specific Fred (1.005-1.025) POC Urine Protein Conf (Negative) Urine Ketones (NEGATIVE) Urine Nitrite (NEGATIVE) Urine Bilirubin (NEGATIVE) Urine Urobilinogen (0-1) mg/dL Urine Leukocytes (NEGATIVE) Urine WBC (Auto) (0-5) /HPF Urine RBC (Auto) (0-2) /HPF U Epithel Cells (Auto) (FEW) /HPF Urine Bacteria (Auto) (NEGATIVE) /HPF Urine RBC (0-5) Milton/ul Ur Culture Indicated? Urine Glucose (NEGATIVE) mg/dL - Progress Progress Note: 09/05/21 23:38 Medical decision making: I spoke with Dr. Christensen who is the patient's primary care physician, and we have opted to place the patient in observation since he does have leukocytosis, persistent urinary tract infection despite outpatient treatment and hyponatremia. We will provide the patient with intravenous fluids repeat labs tomorrow morning and place the patient on intravenous antibiotics. We will also plan on discharge planning to see this patient while in the hospital. Discussed with : Esvin Counseled pt/family regarding: lab results, diagnosis, need for follow-up - Departure Departure Disposition: Observation Clinical Impression: UTI (urinary tract infection), Leukocytosis, Hyponatremia Condition: Stable Critical Care Time: No Referrals: TASIA CHRISTENSEN MD [Primary Care Provider] - Follow up/PCP as directed
[2021-09-05] MEDS ORDERED: Sodium Chloride 0.9% 1000 ML 1,000 ML IV STA (20:48)
[2021-09-05] MEDS ORDERED: Sodium Chloride 0.9% 1000 ML 1,000 ML ONE (21:04)
[2021-09-05 21:07] LABS: Absolute Neutrophil Ct (ANC) 11.52 x10^3/uL (1.4-6.9); Basophil (Absolute #) 0.07 x10^3/uL (0-0.4); Eosinophil % 0.9 % (0.00-5.0); Eosinophil (Absolute #) 0.13 x10^3/uL (0-0.5); Hematocrit 35.4 % (42-50); Hemoglobin 11.9 g/dL (12.5-18.0); Lymphocyte (Absolute #) 2.01 x10^3/uL (1.0-4.6); Lymphocytes % 13.3 % (24.0-44.0); Mean Cell Volume 88.5 fL (78-100); Mean Corpuscular Hemoglobin 29.8 pg (26-32); Mean Corpuscular Hgb Concent. 33.6 g/dL (32-36); Mean Platelet Volume 8.5 fL (7.5-11.0); Monocyte (Absolute #) 1.34 x10^3/uL (0.0-1.3); Monocytes % 8.9 % (0.0-12.0); Neutrophil % 75.9 % (36.0-66.0); Platelet Count 358 x10^3/uL (150-450); Red Cell Distribution Width 13.5 % (11.5-14.0); White Blood Count 15.1 x10^3/uL (4.0-10.5)
[2021-09-05 21:08] LABS: Appearance CLEAR (CLEAR); Bilirubin NEGATIVE (NEGATIVE); Glucose NEGATIVE (NEGATIVE); Ketones NEGATIVE (NEGATIVE); Nitrite NEGATIVE (NEGATIVE); Ph 7.5 (5-6); Protein,Urine Dip NEGATIVE (Negative); RBC NEGATIVE Ery/ul (0-5); Urobilinogen 0.2 mg/dL (0-1)
[2021-09-05 21:09] LABS: Dipstick done @ ? MAIN LAB
[2021-09-05 21:11] LABS: RBC 0-2 /HPF (0-2)
[2021-09-05 21:21] LABS: Urine Cultured Indicated? YES
[2021-09-05 21:29] LABS: ALBUMIN 3.7 g/dL (3.5-5.0); ALKALINE PHOSPHATASE 174 U/L (38-126); AMYLASE 70 U/L (30-110); ANION GAP 11.8 MEQ/L (5-15); BLOOD UREA NITROGEN 15 mg/dL (9-20); CHLORIDE 86 mmol/L (98-107); Carbon Dioxide 33 mmol/L (22-30); EST GLOMERULAR FILTRATION RATE > 60.0 ML/MIN; Glucose 112 mg/dL (74-106); LIPASE 83 U/L (23-300); Potassium 4.6 mmol/L (3.5-5.1); SGOT/AST 28 U/L (17-59); SGPT/ALT 28 U/L (0-50); SODIUM 126 mmol/L (137-145); Total Protein 7.2 g/dL (6.3-8.2)
[2021-09-05] MEDS ORDERED: Levofloxacin 500MG/100ML D5W 500 MG/100 ML BAG IV STA (22:51)
[2021-09-05] MEDS ORDERED: Levofloxacin 500MG/100ML D5W 500 MG/100 ML BAG IV ONE (22:58)
[2021-09-05] MEDS: Sodium Chloride 0.9% 1000 ML 1,000 ML IV SCH (23:04)
[2021-09-05 23:50] LABS: INFLUENZA A NEGATIVE (NEGATIVE); INFLUENZA B NEGATIVE (NEGATIVE); RESPIRATORY SYNCTIAL VIRUS NEGATIVE (Negative); SARS-CoV-2 Xpert Express NEGATIVE (NEGATIVE)
[2021-09-06] MEDS ORDERED: Levofloxacin 500MG/100ML D5W 500 MG/100 ML BAG IV STA (01:39)
[2021-09-06] MEDS ORDERED: Sodium Chloride 0.9% 1000 ML 1,000 ML IV SCH (01:39)
[2021-09-06] MEDS: TYLENOL 325 MG PO PRN ×4 (02:06→23:28)
[2021-09-06 04:51] LABS: Absolute Neutrophil Ct (ANC) 15.47 x10^3/uL (1.4-6.9); Basophil (Absolute #) 0.08 x10^3/uL (0-0.4); Eosinophil % 0.7 % (0.00-5.0); Eosinophil (Absolute #) 0.14 x10^3/uL (0-0.5); Hematocrit 34.9 % (42-50); Hemoglobin 11.7 g/dL (12.5-18.0); Lymphocyte (Absolute #) 2.42 x10^3/uL (1.0-4.6); Mean Cell Volume 87.5 fL (78-100); Mean Corpuscular Hemoglobin 29.3 pg (26-32); Mean Corpuscular Hgb Concent. 33.5 g/dL (32-36); Mean Platelet Volume 8.8 fL (7.5-11.0); Monocyte (Absolute #) 1.92 x10^3/uL (0.0-1.3); Monocytes % 9.5 % (0.0-12.0); Neutrophil % 76.4 % (36.0-66.0); Platelet Count 378 x10^3/uL (150-450); Red Blood Count 3.99 x10^6/uL (4.1-5.6); Red Cell Distribution Width 13.4 % (11.5-14.0); White Blood Count 20.2 x10^3/uL (4.0-10.5)
[2021-09-06 05:17] LABS: ALBUMIN 3.6 g/dL (3.5-5.0); ALKALINE PHOSPHATASE 171 U/L (38-126); ANION GAP 14.3 MEQ/L (5-15); BLOOD UREA NITROGEN 12 mg/dL (9-20); CHLORIDE 89 mmol/L (98-107); Calcium 8.6 mg/dL (8.4-10.2); Carbon Dioxide 27 mmol/L (22-30); Creatinine 1 0.68 mg/dL (0.66-1.25); EST GLOMERULAR FILTRATION RATE > 60.0 ML/MIN; Glucose 115 mg/dL (74-106); SGOT/AST 34 U/L (17-59); SGPT/ALT 27 U/L (0-50); SODIUM 126 mmol/L (137-145); Total Protein 7.3 g/dL (6.3-8.2)
[2021-09-06 05:27] LABS: Slide Review 1 YES
[2021-09-06] MEDS ORDERED: PATIENT OWN MEDICATION IH PRN (07:10)
[2021-09-06] MEDS: Sodium Chloride 0.9% 1000 ML 1,000 ML IV SCH ×2 (08:36→20:25)
[2021-09-06] MEDS ORDERED: PHARMACY DOSING REQUIRED: VANCOMYCIN IV STA (08:47)
[2021-09-06] MEDS ORDERED: VENTOLIN COMMON CANISTER IH PRN (09:47)
[2021-09-06] MEDS ORDERED: NON-FORMULARY ITEM (Lisinopril/Hydrochlorothiazide [Lisinopril-Hctz 20-12.5 Mg Tab] 1 EACH PO SCH (10:00)
[2021-09-06] MEDS: Ecotrin 325 MG PO SCH (10:03)
[2021-09-06] MEDS: VANCOMYCIN 1.25 GM/250 ML BAG 1.25 GM/250 ML PIGGYBACK IV SCH ×2 (10:03→21:27)
[2021-09-06] MEDS: Zestril 20 MG PO SCH (10:03)
[2021-09-06] MEDS: Lopressor 50 MG PO SCH ×2 (10:03→21:27)
[2021-09-06] MEDS: hydroDIURIL 25 MG PO SCH (10:03)
[2021-09-06] MEDS ORDERED: Vitamin B-6 (Pyridoxine) 100 MG PO SCH (14:00)
[2021-09-06] MEDS: PYRIDIUM 200 MG PO SCH ×2 (14:46→21:26)
[2021-09-06] MEDS: NICODERM CQ 14 MG TOP SCH (15:55)
[2021-09-07] MEDS: Sodium Chloride 0.9% 1000 ML 1,000 ML IV SCH (07:14)
[2021-09-07 08:15] LABS: Absolute Neutrophil Ct (ANC) 11.46 x10^3/uL (1.4-6.9); Basophil (Absolute #) 0.06 x10^3/uL (0-0.4); Eosinophil % 0.4 % (0.00-5.0); Eosinophil (Absolute #) 0.06 x10^3/uL (0-0.5); Hematocrit 34.1 % (42-50); Hemoglobin 11.5 g/dL (12.5-18.0); Lymphocytes % 10.9 % (24.0-44.0); Mean Cell Volume 87.4 fL (78-100); Mean Corpuscular Hemoglobin 29.5 pg (26-32); Mean Corpuscular Hgb Concent. 33.7 g/dL (32-36); Mean Platelet Volume 8.6 fL (7.5-11.0); Monocyte (Absolute #) 1.41 x10^3/uL (0.0-1.3); Monocytes % 9.6 % (0.0-12.0); Neutrophil % 78.1 % (36.0-66.0); Platelet Count 385 x10^3/uL (150-450); Red Cell Distribution Width 13.3 % (11.5-14.0); White Blood Count 14.7 x10^3/uL (4.0-10.5)
[2021-09-07 08:43] LABS: ANION GAP 12.6 MEQ/L (5-15); BLOOD UREA NITROGEN 10 mg/dL (9-20); CHLORIDE 87 mmol/L (98-107); Calcium 8.4 mg/dL (8.4-10.2); Carbon Dioxide 29 mmol/L (22-30); Creatinine 1 0.63 mg/dL (0.66-1.25); EST GLOMERULAR FILTRATION RATE > 60.0 ML/MIN; Glucose 107 mg/dL (74-106); Potassium 3.8 mmol/L (3.5-5.1); SODIUM 125 mmol/L (137-145)
[2021-09-07] MEDS: Lopressor 50 MG PO SCH (09:05)
[2021-09-07] MEDS: Ecotrin 325 MG PO SCH (09:05)
[2021-09-07] MEDS: Zestril 20 MG PO SCH (09:05)
[2021-09-07] MEDS: PYRIDIUM 200 MG PO SCH (09:05)
[2021-09-07] MEDS: NICODERM CQ 14 MG TOP SCH (09:06)
[2021-09-07] MEDS: VANCOMYCIN 1.25 GM/250 ML BAG 1.25 GM/250 ML PIGGYBACK IV SCH (09:06)
[2021-09-07] MEDS: hydroDIURIL 25 MG PO SCH (09:06)
--- NOTE | 2021-09-07 10:31 | PCM.HP ---
History of Present Illness - Chief Complaint Chief Complaint: c/o bladder pain for 1 week History of Present Illness: is a 70 year old male.presents with dysuria and urinary frequency. He was diagnosed with urinary tract infection approximately 4 days ago and was started on antibiotics. 2 days ago, 09/03/2021 patient was started on Pyridium. Patient is here today because of his multiple medical problems and difficulty caring for himself. Patient has a history of CHF, hypertension, COPD, coronary artery disease with cardiac stents, peripheral vascular disease with bilateral femoral artery stents and a carotid endarterectomy as well as chronic liver disease. He is a current daily smoker of cigarettes. Patient's family's states that he was told he needed a 3-day stay in the hospital in order to be admitted into a senior living. I spoke with Dr. Sutton, the patient's primary care physician regarding this issue. He stated to perform the work-up I would normally do an see if the patient qualifies for placement observation or admission. If he does not qualify for for placement in the hospital under observation or admission status, he will need to be evaluated as an outpatient for qualification for senior living placement. This was discussed with the patient and his family member who helps care for him. Patient denies chest pain. He denies shortness of breath. He has no abdominal pain. - Review of Systems Constitutional: No Fever, No Chills Eyes: No Symptoms Ears, Nose, & Throat: No Symptoms Respiratory: No Cough, No Short Of Breath Cardiac: No Chest Pain, No Edema, No Syncope Abdominal/Gastrointestinal: No Abdominal Pain, No Nausea, No Vomiting, No Diarrhea Genitourinary Symptoms: Dysuria, Hesitancy, Urgency Musculoskeletal: No Back Pain, No Neck Pain Skin: No Rash Neurological: No Dizziness, No Focal Weakness, No Sensory Changes Psychological: No Symptoms Endocrine: No Symptoms Hematologic/Lymphatic: No Symptoms Immunological/Allergic: No Symptoms Medications & Allergies Home Medications: Home Medication List Aspirin EC 325 mg [Ecotrin 325 MG] 325 mg PO DAILY 02/18/19 [History Confirmed 09/05/21] Metoprolol Tartrate 50 mg [Lopressor 50 MG] 50 mg PO BID #60 tablet 03/12/19 [Rx Confirmed 09/05/21] Lisinopril/Hydrochlorothiazide [Lisinopril-Hctz 20-12.5 mg Tab] 1 tab PO DAILY 05/08/21 [History Confirmed 09/05/21] Phenazopyridine HCl 200 mg [Pyridium 200 mg] 200 mg PO TID #10 tablet 09/03/21 [Rx Confirmed 09/05/21] Ciprofloxacin [Cipro 500 MG] 500 mg PO BID 09/05/21 [History Confirmed 09/05/21] Albuterol Common Canister [Ventolin Common Canister] 1 puff IH Q4-6HPRN PRN 09/06/21 [History Confirmed 09/06/21] Allergies/Adverse Reactions: Allergies Allergy/AdvReac Type Severity Reaction Status Date / Time Penicillins Allergy Verified 05/07/21 20:34 - Past Medical History Past Medical History: Yes Neurological History: No Pertinent History ENT History: No Pertinent History Cardiac History: Congestive Heart Failure, Coronary Artery Disease, Hypertension Respiratory History: COPD Endocrine Medical History: No Pertinent History Musculoskelatal History: No Pertinent History GI Medical History: Other History: No Pertinent History Pyscho-Social History: No Pertinent History Male Reproductive Disorders: No Pertinent History Comment: [place], Stent x 2 in right le and 1 in left femoral artery. Patient is a poor historian. History recalled from previous admission. pt denies health problems pt family member (stated she is a niece). reported that pt is in denial of health problems he has liver disease, CHF, and COPD.--remains true, recalled - Past Surgical History Past Surgical History: Yes Neuro Surgical History: No Pertinent History Cardiac History: Vascular Surgery Respiratory Surgery: No Pertinent History GI Surgical History: No Pertinent History Genitourinary Surgical Hx: No Pertinent History Musculskeletal Surgical Hx: No Pertinent History Male Surgical History: No Pertinent History Other Surgical History: stent to tono femoral artery, caroditectomy. Patient is a poor historian. History recalled from previous admission. - Social History Smoking Status: Current every day smoker How long have you smoked: years Exposure to second hand smoke: No Alcohol: Occasionally Drug Use: none Significant Family History: no pertinent family hx - Physical Exam Vital Signs: Vital Signs - 24 hr Temp Pulse Resp BP Pulse Ox 09/07/21 07:21 97 09/07/21 06:59 98.0 F 104 H 16 168/77 95 09/07/21 04:00 97.3 F 95 H 20 154/89 96 09/07/21 00:00 97.3 F 88 20 153/88 96 09/06/21 20:15 96 H 20 96 09/06/21 19:44 96.8 F 99 H 20 169/88 96 09/06/21 16:00 98.0 F 91 H 16 152/80 98 09/06/21 12:00 97.7 F 84 16 128/70 96 General Appearance: no apparent distress, alert Neurologic Exam: alert, oriented x 3, cooperative, normal mood/affect, nml cerebellar function, nml station & gait, sensation nml, No motor deficits Eye Exam: PERRL/EOMI, eyes nml inspection Ears, Nose, Throat Exam: normal ENT inspection, TMs normal, pharynx normal, moist mucous membranes Neck Exam: normal inspection, non-tender, supple, full range of motion Respiratory Exam: normal breath sounds, lungs clear, No respiratory distress Cardiovascular Exam: regular rate/rhythm, normal heart sounds, normal peripheral pulses Gastrointestinal/Abdomen Exam: soft, normal bowel sounds, No tenderness, No mass Male Genitalia Exam: prostate tenderness Back Exam: normal inspection, normal range of motion, No CVA tenderness, No vertebral tenderness Extremity Exam: normal inspection, normal range of motion, pelvis stable Skin Exam: normal color, warm, dry, No rash Lymphatic Exam: No adenopathy Results - Labs Lab/Micro Results: Lab Results-Last 24 Hours 09/07/21 09/07/21 Range/Units 08:11 08:11 WBC 14.7 H (4.0-10.5) x10^3/uL RBC 3.90 L (4.1-5.6) x10^6/uL Hgb 11.5 L (12.5-18.0) g/dL Hct 34.1 L (42-50) % MCV 87.4 (78-100) fL MCH 29.5 (26-32) pg MCHC 33.7 (32-36) g/dL RDW 13.3 (11.5-14.0) % Plt Count 385 (150-450) x10^3/uL MPV 8.6 (7.5-11.0) fL Gran % 78.1 H (36.0-66.0) % Immature Gran % (Auto) 0.6 H (0.00-0.4) % Nucleat RBC Rel Count 0.0 (0.00-0.1) % Eos # (Auto) 0.06 (0-0.5) x10^3/uL Immature Gran # (Auto) 0.09 H (0.00-0.03) x10^3u/L Absolute Lymphs (auto) 1.60 (1.0-4.6) x10^3/uL Absolute Monos (auto) 1.41 H (0.0-1.3) x10^3/uL Absolute Nucleated RBC 0.00 (0.00-0.01) x10^3u/L Lymphocytes % 10.9 L (24.0-44.0) % Monocytes % 9.6 (0.0-12.0) % Eosinophils % 0.4 (0.00-5.0) % Basophils % 0.4 (0.0-0.4) % Absolute Granulocytes 11.46 H (1.4-6.9) x10^3/uL Basophils # 0.06 (0-0.4) x10^3/uL Sodium 125 L (137-145) mmol/L Potassium 3.8 (3.5-5.1) mmol/L Chloride 87 L (98-107) mmol/L Carbon Dioxide 29 (22-30) mmol/L Anion Gap 12.6 (5-15) MEQ/L BUN 10 (9-20) mg/dL Creatinine 0.63 L (0.66-1.25) mg/dL Estimated GFR > 60.0 ML/MIN Glucose 107 H (74-106) mg/dL Calcium 8.4 (8.4-10.2) mg/dL Microbiology 09/05/21 21:00 Urine Culture - Final Clean Catch Midstream MIXED PJ; 3 OR MORE TYPES. NO PREDOMINANT ORGANISM. NO FURTHER WORKUP. PLEASE RESUBMIT IF CLINICALLY INDICATED. - Other Procedures and Tests Respiratory Therapy 09/07/21 07:00 Respiratory Therapy Assessment DAILY Assessment/Plan (1) Pyelonephritis Current Visit: Yes Status: Acute Assessment & Plan: MRSA positive. on vanco mycin Code(s): N12 - TUBULO-INTERSTITIAL NEPHRITIS, NOT SPCF ACUTE OR CHRONIC (2) UTI (urinary tract infection) Current Visit: Yes Status: Acute Qualifiers: Hematuria presence: without hematuria Code(s): N39.0 - URINARY TRACT INFECTION, SITE NOT SPECIFIED (3) Hyponatremia Current Visit: Yes Status: Acute Code(s): E87.1 - HYPO-OSMOLALITY AND HYPONATREMIA (4) Ulcer of extremity due to chronic venous insufficiency Current Visit: Yes Status: Chronic Code(s): L98.499 - NON-PRESSURE CHRONIC ULCER OF SKIN OF SITES W UNSP SEVERITY; I87.2 - VENOUS INSUFFICIENCY (CHRONIC) (PERIPHERAL) (5) Peripheral vascular disease of extremity with claudication Current Visit: Yes Status: Chronic Code(s): I73.9 - PERIPHERAL VASCULAR DISEASE, UNSPECIFIED
--- NOTE | 2021-09-07 10:32 | PCM.NOTE ---
Date and Time: 09/07/21 1031 Subjective Assessment: doing better - Review of Systems Constitutional: No Fever, No Chills Eyes: No Symptoms Ears, Nose, & Throat: No Symptoms Respiratory: No Cough, No Short Of Breath Cardiac: No Chest Pain, No Edema, No Syncope Abdominal/Gastrointestinal: No Abdominal Pain, No Nausea, No Vomiting, No Diarrhea Genitourinary Symptoms: No Dysuria Musculoskeletal: No Back Pain, No Neck Pain Skin: No Rash Neurological: No Dizziness, No Focal Weakness, No Sensory Changes Psychological: No Symptoms Endocrine: No Symptoms Hematologic/Lymphatic: No Symptoms Immunological/Allergic: No Symptoms Objective Exam General Appearance: no apparent distress, alert Neurologic Exam: alert, oriented x 3, cooperative, normal mood/affect, nml cerebellar function, sensation nml, No motor deficits Skin Exam: normal color, warm, dry Eye Exam: PERRL, EOMI, eyes nml inspection Ears, Nose, Throat Exam: normal ENT inspection, pharynx normal, moist mucous membranes Neck Exam: normal inspection, non-tender, supple, full range of motion Respiratory Exam: normal breath sounds, lungs clear, No respiratory distress Cardiovascular Exam: regular rate/rhythm, normal heart sounds Gastrointestinal/Abdomen Exam: soft, No tenderness, No mass Extremity Exam: normal inspection, normal range of motion Back Exam: normal inspection, normal range of motion, No CVA tenderness, No vertebral tenderness Male Genitalia Exam: deferred Rectal Exam: deferred OBJECTIVE DATA Vital Signs: Vital Signs - 24 hr Temp Pulse Resp BP Pulse Ox 09/07/21 07:21 97 09/07/21 06:59 98.0 F 104 H 16 168/77 95 09/07/21 04:00 97.3 F 95 H 20 154/89 96 09/07/21 00:00 97.3 F 88 20 153/88 96 09/06/21 20:15 96 H 20 96 09/06/21 19:44 96.8 F 99 H 20 169/88 96 09/06/21 16:00 98.0 F 91 H 16 152/80 98 09/06/21 12:00 97.7 F 84 16 128/70 96 Pain Assessment - Last Documented Pain Intensity 0 Pain Scale Used 0-10 Pain Scale Intake and Output: Intake & Output 09/04/21 09/05/21 09/06/21 09/07/21 11:59 11:59 11:59 11:59 Intake Total 735 1660 Output Total 425 1300 Balance 310 380 Weight 82.7 kg Lab Results: Lab Results-Last 24 Hours 09/07/21 09/07/21 Range/Units 08:11 08:11 WBC 14.7 H (4.0-10.5) x10^3/uL RBC 3.90 L (4.1-5.6) x10^6/uL Hgb 11.5 L (12.5-18.0) g/dL Hct 34.1 L (42-50) % MCV 87.4 (78-100) fL MCH 29.5 (26-32) pg MCHC 33.7 (32-36) g/dL RDW 13.3 (11.5-14.0) % Plt Count 385 (150-450) x10^3/uL MPV 8.6 (7.5-11.0) fL Gran % 78.1 H (36.0-66.0) % Immature Gran % (Auto) 0.6 H (0.00-0.4) % Nucleat RBC Rel Count 0.0 (0.00-0.1) % Eos # (Auto) 0.06 (0-0.5) x10^3/uL Immature Gran # (Auto) 0.09 H (0.00-0.03) x10^3u/L Absolute Lymphs (auto) 1.60 (1.0-4.6) x10^3/uL Absolute Monos (auto) 1.41 H (0.0-1.3) x10^3/uL Absolute Nucleated RBC 0.00 (0.00-0.01) x10^3u/L Lymphocytes % 10.9 L (24.0-44.0) % Monocytes % 9.6 (0.0-12.0) % Eosinophils % 0.4 (0.00-5.0) % Basophils % 0.4 (0.0-0.4) % Absolute Granulocytes 11.46 H (1.4-6.9) x10^3/uL Basophils # 0.06 (0-0.4) x10^3/uL Sodium 125 L (137-145) mmol/L Potassium 3.8 (3.5-5.1) mmol/L Chloride 87 L (98-107) mmol/L Carbon Dioxide 29 (22-30) mmol/L Anion Gap 12.6 (5-15) MEQ/L BUN 10 (9-20) mg/dL Creatinine 0.63 L (0.66-1.25) mg/dL Estimated GFR > 60.0 ML/MIN Glucose 107 H (74-106) mg/dL Calcium 8.4 (8.4-10.2) mg/dL Multi-Disciplinary Progress Notes: Multi-Disciplinary Progress Notes 09/06/21 11:25 Case Management Note by Hailey Banda PATIENT HAS C SOLUTIONS. THEY WERE NOTIFIED PATIENT HERE OBS. THEY WILL NEED NOTIFIED AT TIME OF DC AT [phone].IF PATIENT DOES NOT GO TO ID- THEY WILL CONTINUE. THEY WILL NEED FAXED THE DC INSTRUCTIONS, DC MED LIST, DC SUMMARY (IF AVAILABLE) TO [phone] Initialized on 09/06/21 11:25 - END OF NOTE 09/06/21 11:22 Case Management Note by Hailey Banda REFERRAL FAXED TO [facility] AT THIS TIME Initialized on 09/06/21 11:22 - END OF NOTE Assessment/Plan (1) Pyelonephritis Current Visit: Yes Status: Acute Assessment & Plan: Chief Complaint Diagnosis c/o bladder pain for 1 week Allergies Allergy/AdvReac Type Severity Reaction Status Date / Time Penicillins Allergy Verified 05/07/21 20:34 Vital Signs (Last 24 hours) Temp Pulse Resp BP Pulse Ox 09/07/21 07:21 97 09/07/21 06:59 98.0 F 104 H 16 168/77 95 09/07/21 04:00 97.3 F 95 H 20 154/89 96 09/07/21 00:00 97.3 F 88 20 153/88 96 09/06/21 20:15 96 H 20 96 09/06/21 19:44 96.8 F 99 H 20 169/88 96 09/06/21 16:00 98.0 F 91 H 16 152/80 98 09/06/21 12:00 97.7 F 84 16 128/70 96 Home Medications Medication Instructions Recorded Confirmed Last Taken Type Ciprofloxacin [Cipro 500 MG] 500 mg PO BID 09/05/21 09/05/21 09/05/21 History 1 Albuterol Common Canister 1 puff IH Q4-6HPRN PRN 09/06/21 09/06/21 09/06/21 History [Ventolin Common Canister] Current Medications Generic Name Dose Route Start Last Admin Trade Name Freq PRN Reason Stop Dose Admin Acetaminophen 650 mg 09/06/21 01:39 09/06/21 23:28 Acetaminophen 325 Mg Tablet PO 10/06/21 01:38 650 mg Q4H PRN PRN Administration PAIN, FEVER, HEADACHE Aspirin 325 mg 09/06/21 10:00 09/07/21 09:05 Aspirin 325 Mg Tablet.Ec PO 10/06/21 09:59 325 mg DAILY VERNA Administration Device 1 09/07/21 21:30 Therapuetic Drug Level Monitor Each IJ 09/07/21 21:31 1XONLY ONE Hydrochlorothiazide 12.5 mg 09/06/21 10:00 09/07/21 09:06 Hydrochlorothiazide 25 Mg Tablet PO 10/06/21 09:59 12.5 mg DAILY VERNA Administration Sodium Chloride 1,000 mls @ 100 mls/hr 09/05/21 23:00 09/07/21 07:14 Sodium Chloride 0.9% 1000 Ml IV 10/05/21 22:59 Not Given .Q10H VERNA Vancomycin HCl 1.25 gm in 250 mls @ 150 mls/hr 09/06/21 10:00 09/07/21 09:06 Vancomycin 1.25 Gm/250 Ml Bag IV 09/09/21 09:59 150 mls/hr Q12HT VERNA Administration Lisinopril 20 mg 09/06/21 10:00 09/07/21 09:05 Lisinopril 20 Mg Tablet PO 10/06/21 09:59 20 mg DAILY VERNA Administration Metoprolol Tartrate 50 mg 09/06/21 10:00 09/07/21 09:05 Metoprolol Tartrate 50 Mg Tablet PO 10/06/21 09:59 50 mg BID VERNA Administration Nicotine 14 mg 09/06/21 10:00 09/07/21 09:06 Nicotine 14 Mg/Patch Patch TOP 10/06/21 09:59 14 mg DAILY VERNA Administration Patient Own Med : 2 each 09/06/21 07:10 Albuterol Inhaler IH 10/06/21 07:09 Q4HPRN PRN wheezing Phenazopyridine HCl 100 mg 09/06/21 14:30 09/07/21 09:05 Phenazopyridine Hcl 200 Mg Tablet PO 10/06/21 14:29 100 mg BID VERNA Administration Discontinued Medications Generic Name Dose Route Start Last Admin Trade Name Freq PRN Reason Stop Dose Admin Albuterol Sulfate 1 puff 09/06/21 09:47 Albuterol Common Canister Inhaler IH 10/06/21 09:46 Q4-6HPRN PRN SHORTNESS OF BREATH/WHEEZING Sodium Chloride 1,000 mls @ 999 mls/hr 09/05/21 20:48 09/05/21 21:05 Sodium Chloride 0.9% 1000 Ml IV 09/05/21 21:48 999 mls/hr .Q1H1M STA Administration Sodium Chloride Confirm 09/05/21 21:04 Sodium Chloride 0.9% 1000 Ml Administered 09/05/21 21:05 Dose 1,000 mls @ ud .ROUTE .STK-MED ONE Levofloxacin/Dextrose 500 mg in 100 mls @ 100 mls/hr 09/05/21 22:51 09/05/21 23:03 Levofloxacin 500mg/100ml D5w IV 09/05/21 23:50 100 mls/hr STAT STA 100 mls/hr Administration Levofloxacin/Dextrose Confirm 09/05/21 22:58 Levofloxacin 500mg/100ml D5w Administered 09/05/21 22:59 Dose 500 mg in 100 mls @ ud IV .STK-MED ONE Levofloxacin/Dextrose 500 mg in 100 mls @ 100 mls/hr 09/06/21 01:39 09/06/21 07:19 Levofloxacin 500mg/100ml D5w IV 09/06/21 02:38 Not Given STAT STA Non-Formulary Medication 1 each 09/06/21 08:47 09/06/21 10:21 Pharmacy Dose Request: Vancomycin 1 Each IV 09/06/21 08:48 1 each STAT STA Administration Non-Formulary Medication 1 tab 09/06/21 10:00 Lisinopril/Hydrochlorothiazide [Lisinopril-Hctz 20-12.5 Mg Tab] PO 10/06/21 09:59 DAILY VERNA Pyridoxine HCl 100 mg 09/06/21 14:00 09/06/21 14:46 Pyridoxine Hcl 100 Mg Tablet PO 10/06/21 13:59 Not Given BID VERNA Intake & Output (Last 24 hours) 09/04/21 09/05/21 09/06/21 09/07/21 11:59 11:59 11:59 11:59 Intake Total 735 1680 Output Total 425 1300 Balance 310 380 Weight 82.7 kg Microbiology Results (Last 24 hours) 09/05/21 21:00 Clean Catch Midstream Urine Culture - Final MIXED PJ; 3 OR MORE TYPES. NO PREDOMINANT ORGANISM. NO FURTHER WORKUP. PLEASE RESUBMIT IF CLINICALLY IN DICATED. Laboratory Results (Last 24 hours) 09/07/21 09/07/21 08:11 08:11 WBC 14.7 H RBC 3.90 L Hgb 11.5 L Hct 34.1 L MCV 87.4 MCH 29.5 MCHC 33.7 RDW 13.3 Plt Count 385 MPV 8.6 Gran % 78.1 H Immature Gran % (Auto) 0.6 H Nucleat RBC Rel Count 0.0 Eos # (Auto) 0.06 Immature Gran # (Auto) 0.09 H Absolute Lymphs (auto) 1.60 Absolute Monos (auto) 1.41 H Absolute Nucleated RBC 0.00 Lymphocytes % 10.9 L Monocytes % 9.6 Eosinophils % 0.4 Basophils % 0.4 Absolute Granulocytes 11.46 H Basophils # 0.06 Sodium 125 L Potassium 3.8 Chloride 87 L Carbon Dioxide 29 Anion Gap 12.6 BUN 10 Creatinine 0.63 L Estimated GFR > 60.0 Glucose 107 H Calcium 8.4 Orders (Last 24 hours) Category Date Time Status BMP Stat Lab 09/07/21 08:11 Completed CBC W DIFF Stat Lab 09/07/21 08:11 Completed Vancomycin, Trough Urgent Lab 09/07/21 21:30 Ordered Albuterol Common Canister [Ventolin Common Canister* Med 09/06/21 09:47 Discontinued ] 1 puff IH Q4-6HPRN PRN Aspirin EC 325 mg [Ecotrin 325 MG] Med 09/06/21 10:00 Active 325 mg PO DAILY Hydrochlorothiazide 25 mg [hydroDIURIL 25 MG] Med 09/06/21 10:00 Active 12.5 mg PO DAILY Lisinopril 20 mg [Zestril 20 MG] Med 09/06/21 10:00 Active 20 mg PO DAILY Lisinopril/Hydrochlorothiazide [Lisinopril-Hctz 20-12.5 Med 09/06/21 10:00 Discontinued mg Tab] 1 tab PO DAILY Metoprolol Tartrate 50 mg [Lopressor 50 MG] Med 09/06/21 10:00 Active 50 mg PO BID Nicotine 14 mg [Nicoderm Cq 14 mg] Med 09/06/21 10:00 Active 14 mg TOP DAILY Phenazopyridine HCl 200 mg [Pyridium 200 mg] Med 09/06/21 14:30 Active 100 mg PO BID Pyridoxine HCl 100 mg [Vitamin B-6 (Pyridoxine) 100 Med 09/06/21 14:00 Discontinued MG] 100 mg PO BID Therapuetic Drug Level Monitor [Trough Drug Levels] Med 09/07/21 21:30 Once 1 IJ 1XONLY ONE Vancomycin/Water For Inj (Peg) [Vancomycin 1.25 gm/250 Med 09/06/21 10:00 Active ml Bag] 1.25 gm in 250 ml IV Q12HT PT Eval & Treat (MD Order) ONCE PT 09/06/21 10:04 Completed Respiratory Therapy Assessment DAILY RT 09/07/21 07:00 Active Patient Care Notes (Last 24 hours) 09/06/21 11:25 Case Management Note by Hailey Banda PATIENT HAS [facility] SOLUTIONS. THEY WERE NOTIFIED PATIENT HERE OBS. THEY WILL NEED NOTIFIED AT TIME OF DC AT [phone].IF PATIENT DOES NOT GO TO ID- THEY WILL CONTINUE. THEY WILL NEED FAXED THE DC INSTRUCTIONS, DC MED LIST, DC SUMMARY (IF AVAILABLE) TO [phone] Initialized on 09/06/21 11:25 - END OF NOTE 09/06/21 11:22 Case Management Note by Hailey Banda REFERRAL FAXED TO [facility] AT THIS TIME Initialized on 09/06/21 11:22 - END OF NOTE Code(s): N12 - TUBULO-INTERSTITIAL NEPHRITIS, NOT SPCF ACUTE OR CHRONIC (2) UTI (urinary tract infection) Current Visit: Yes Status: Acute Qualifiers: Hematuria presence: without hematuria Code(s): N39.0 - URINARY TRACT INFECTION, SITE NOT SPECIFIED (3) Hyponatremia Current Visit: Yes Status: Acute Code(s): E87.1 - HYPO-OSMOLALITY AND HYPONATREMIA (4) Ulcer of extremity due to chronic venous insufficiency Current Visit: Yes Status: Chronic Code(s): L98.499 - NON-PRESSURE CHRONIC ULCER OF SKIN OF SITES W UNSP SEVERITY; I87.2 - VENOUS INSUFFICIENCY (CHRONIC) (PERIPHERAL) (5) Peripheral vascular disease of extremity with claudication Current Visit: Yes Status: Chronic Code(s): I73.9 - PERIPHERAL VASCULAR DISEASE, UNSPECIFIED
[2021-09-07 12:17] VITALS: BP 142/70; PULSE 88; O2SAT 93
[2021-09-07] MEDS ORDERED: PHARMACY DOSING REQUEST MC ONE (12:30)
[2021-09-07] MEDS ORDERED: TROUGH DRUG LEVELS IJ ONE (21:30)
--- NOTE | 2021-09-08 12:45 | PCM.DS ---
Discharge Summary Date of Admission: 09/06/21 01:34 Admitting Physician: TASIA CHRISTENSEN Primary Care Provider: TASIA CHRISTENSEN Allergies Allergies Penicillins Allergy (Verified 05/07/21 20:34) Hospital Summary - Hospital Course Hospital Course: Chief Complaint Diagnosis c/o bladder pain for 1 week Allergies Allergy/AdvReac Type Severity Reaction Status Date / Time Penicillins Allergy Verified 05/07/21 20:34 Home Medications Medication Instructions Recorded Confirmed Last Taken Type Albuterol Common Canister 1 puff IH Q4-6HPRN PRN 09/06/21 09/06/21 09/06/21 History [Ventolin Common Canister] Linezolid [Zyvox] 600 mg PO BID 7 Days #14 tablet 09/07/21 Unknown Rx Current Medications Discontinued Medications Generic Name Dose Route Start Last Admin Trade Name Freq PRN Reason Stop Dose Admin Acetaminophen 650 mg 09/06/21 01:39 09/06/21 23:28 Acetaminophen 325 Mg Tablet PO 10/06/21 01:38 650 mg Q4H PRN PRN Administration PAIN, FEVER, HEADACHE Albuterol Sulfate 1 puff 09/06/21 09:47 Albuterol Common Canister Inhaler IH 10/06/21 09:46 Q4-6HPRN PRN SHORTNESS OF BREATH/WHEEZING Aspirin 325 mg 09/06/21 10:00 09/07/21 09:05 Aspirin 325 Mg Tablet.Ec PO 10/06/21 09:59 325 mg DAILY VERNA Administration Device 1 09/07/21 21:30 Therapuetic Drug Level Monitor Each IJ 09/07/21 21:31 1XONLY ONE Hydrochlorothiazide 12.5 mg 09/06/21 10:00 09/07/21 09:06 Hydrochlorothiazide 25 Mg Tablet PO 10/06/21 09:59 12.5 mg DAILY VERNA Administration Sodium Chloride 1,000 mls @ 999 mls/hr 09/05/21 20:48 09/05/21 21:05 Sodium Chloride 0.9% 1000 Ml IV 09/05/21 21:48 999 mls/hr .Q1H1M STA Administration Sodium Chloride Confirm 09/05/21 21:04 Sodium Chloride 0.9% 1000 Ml Administered 09/05/21 21:05 Dose 1,000 mls @ ud .ROUTE .STK-MED ONE Levofloxacin/Dextrose 500 mg in 100 mls @ 100 mls/hr 09/05/21 22:51 09/05/21 23:03 Levofloxacin 500mg/100ml D5w IV 09/05/21 23:50 100 mls/hr STAT STA 100 mls/hr Administration Sodium Chloride 1,000 mls @ 100 mls/hr 09/05/21 23:00 09/07/21 07:14 Sodium Chloride 0.9% 1000 Ml IV 10/05/21 22:59 Not Given .Q10H VERNA Levofloxacin/Dextrose Confirm 09/05/21 22:58 Levofloxacin 500mg/100ml D5w Administered 09/05/21 22:59 Dose 500 mg in 100 mls @ ud IV .STK-MED ONE Levofloxacin/Dextrose 500 mg in 100 mls @ 100 mls/hr 09/06/21 01:39 09/06/21 07:19 Levofloxacin 500mg/100ml D5w IV 09/06/21 02:38 Not Given STAT STA Vancomycin HCl 1.25 gm in 250 mls @ 150 mls/hr 09/06/21 10:00 09/07/21 09:06 Vancomycin 1.25 Gm/250 Ml Bag IV 09/09/21 09:59 150 mls/hr Q12HT VERNA Administration Lisinopril 20 mg 09/06/21 10:00 09/07/21 09:05 Lisinopril 20 Mg Tablet PO 10/06/21 09:59 20 mg DAILY VERNA Administration Metoprolol Tartrate 50 mg 09/06/21 10:00 09/07/21 09:05 Metoprolol Tartrate 50 Mg Tablet PO 10/06/21 09:59 50 mg BID VERNA Administration Nicotine 14 mg 09/06/21 10:00 09/07/21 09:06 Nicotine 14 Mg/Patch Patch TOP 10/06/21 09:59 14 mg DAILY VERNA Administration Non-Formulary Medication 1 each 09/06/21 08:47 09/06/21 10:21 Pharmacy Dose Request: Vancomycin 1 Each IV 09/06/21 08:48 1 each STAT STA Administration Non-Formulary Medication 1 tab 09/06/21 10:00 Lisinopril/Hydrochlorothiazide [Lisinopril-Hctz 20-12.5 Mg Tab] PO 10/06/21 09:59 DAILY VERNA Non-Formulary Medication 1 each 09/07/21 12:30 Pharmacy Dosing Request 09/07/21 12:31 STAT ONE Patient Own Med : 2 each 09/06/21 07:10 Albuterol Inhaler IH 10/06/21 07:09 Q4HPRN PRN wheezing Phenazopyridine HCl 100 mg 09/06/21 14:30 09/07/21 09:05 Phenazopyridine Hcl 200 Mg Tablet PO 10/06/21 14:29 100 mg BID VERNA Administration Pyridoxine HCl 100 mg 09/06/21 14:00 09/06/21 14:46 Pyridoxine Hcl 100 Mg Tablet PO 10/06/21 13:59 Not Given BID VERNA Intake & Output (Last 24 hours) 09/06/21 09/07/21 09/08/21 09/09/21 11:59 11:59 11:59 11:59 Intake Total 735 1680 Output Total 425 1300 350 Balance 310 380 -350 Weight 82.7 kg Microbiology Results (Last 24 hours) 09/05/21 21:00 Clean Catch Midstream Urine Culture - Final MIXED PJ; 3 OR MORE TYPES. NO PREDOMINANT ORGANISM. NO FURTHER WORKUP. PLEASE RESUBMIT IF CLINICALLY INDICATED. Orders (Last 24 hours) Category Date Time Status Pharmacy Dosing Request Med 09/07/21 12:30 Discontinued 1 each STAT ONE Therapuetic Drug Level Monitor [Trough Drug Levels] [facility] 09/07/21 21:30 Discontinued 1 IJ 1XONLY ONE Patient Care Notes (Last 24 hours) 09/07/21 13:34 Nursing Note by Gabby Proctor I FAXED PATIENTS D/C PAPERWORK TO [facility] [employer] AND CALLED TO LET THEM KNOW OF DISCHARGE TIME [phone]. Initialized on 09/07/21 13:34 - END OF NOTE - Vitals & Intake/Output Vital Signs: Vital Signs Temperature 98.0 F 09/07/21 12:00 Pulse Rate 88 09/07/21 12:00 Respiratory Rate 18 09/07/21 12:00 Blood Pressure 142/70 09/07/21 12:00 O2 Sat by Pulse Oximetry 93 L 09/07/21 12:00 Intake & Output: Intake & Output 09/06/21 09/07/21 09/08/21 09/09/21 11:59 11:59 11:59 11:59 Intake Total 735 1680 Output Total 425 1300 350 Balance 310 380 -350 Weight 82.7 kg - Lab Result Diagrams: 09/07/21 08:11 09/07/21 08:11 Micro Results-Entire Visit: Microbiology 09/05/21 21:00 Urine Culture - Final Clean Catch Midstream MIXED PJ; 3 OR MORE TYPES. NO PREDOMINANT ORGA NISM. NO FURTHER WORKUP. PLEASE RESUBMIT IF CLINICALLY INDICATED. - Procedures and Test Procedures and Tests throughout Hospitalization: Therapy Orders & Screens 09/06/21 01:56 RT Screen per Nursing Assess ONCE Comment: Protocol Order Physician Instructions: Greater than 3 points order RT Admission Screen Reason For Exam: Triggered on Admission Diagnosis: UTI Diagnosis: UTI Pneumonia: No Home O2: No Asthma: Yes CHF: Yes Home CPAP/BIPAP: No Home Nebs/MDI: Yes Total Points: 12 09/06/21 04:33 Respiratory MDI UD Comment: Diagnosis: UTI 09/06/21 10:04 PT Eval & Treat (MD Order) ONCE Reason for Eval:: fci placement Diagnosis: UTI 09/07/21 07:00 Respiratory Therapy Assessment DAILY Comment: Diagnosis: UTI Discharge Exam General Appearance: no apparent distress, alert Neurologic Exam: alert, oriented x 3, cooperative, normal mood/affect, nml cerebellar function, sensation nml, No motor deficits Eye Exam: PERRL, EOMI, eyes nml inspection Ears, Nose, Throat Exam: normal ENT inspection, pharynx normal, moist mucous membranes Neck Exam: normal inspection, non-tender, supple, full range of motion Respiratory Exam: normal breath sounds, lungs clear, No respiratory distress Cardiovascular Exam: regular rate/rhythm, normal heart sounds Gastrointestinal/Abdomen Exam: soft, No tenderness, No mass Male Genitalia Exam: deferred Rectal Exam: deferred Back Exam: normal inspection, normal range of motion, No CVA tenderness, No vertebral tenderness Extremity Exam: normal inspection, normal range of motion Skin Exam: normal color, warm, dry Final Diagnosis/Problem List - Final Discharge Diagnosis/Problem (1) Pyelonephritis Status: Acute Priority: High Assessment & Plan: Chief Complaint Diagnosis c/o bladder pain for 1 week Allergies Allergy/AdvReac Type Severity Reaction Status Date / Time Penicillins Allergy Verified 05/07/21 20:34 Home Medications Medication Instructions Recorded Confirmed Last Taken Type Albuterol Common Canister 1 puff IH Q4-6HPRN PRN 09/06/21 09/06/21 09/06/21 History [Ventolin Common Canister] Linezolid [Zyvox] 600 mg PO BID 7 Days #14 tablet 09/07/21 Unknown Rx Current Medications Discontinued Medications Generic Name Dose Route Start Last Admin Trade Name Freq PRN Reason Stop Dose Admin Acetaminophen 650 mg 09/06/21 01:39 09/06/21 23:28 Acetaminophen 325 Mg Tablet PO 10/06/21 01:38 650 mg Q4H PRN PRN Administration PAIN, FEVER, HEADACHE Albuterol Sulfate 1 puff 09/06/21 09:47 Albuterol Common Canister Inhaler IH 10/06/21 09:46 Q4-6HPRN PRN SHORTNESS OF BREATH/WHEEZING Aspirin 325 mg 09/06/21 10:00 09/07/21 09:05 Aspirin 325 Mg Tablet.Ec PO 10/06/21 09:59 325 mg DAILY VERNA Administration Device 1 09/07/21 21:30 Therapuetic Drug Level Monitor Each IJ 09/07/21 21:31 1XONLY ONE Hydrochlorothiazide 12.5 mg 09/06/21 10:00 09/07/21 09:06 Hydrochlorothiazide 25 Mg Tablet PO 10/06/21 09:59 12.5 mg DAILY VERNA Administration Sodium Chloride 1,000 mls @ 999 mls/hr 09/05/21 20:48 09/05/21 21:05 Sodium Chloride 0.9% 1000 Ml IV 09/05/21 21:48 999 mls/hr .Q1H1M STA Administration Sodium Chloride Confirm 09/05/21 21:04 Sodium Chloride 0.9% 1000 Ml Administered 09/05/21 21:05 Dose 1,000 mls @ ud .ROUTE .STK-MED ONE Levofloxacin/Dextrose 500 mg in 100 mls @ 100 mls/hr 09/05/21 22:51 09/05/21 23:03 Levofloxacin 500mg/100ml D5w IV 09/05/21 23:50 100 mls/hr STAT STA 100 mls/hr Administration Sodium Chloride 1,000 mls @ 100 mls/hr 09/05/21 23:00 09/07/21 07:14 Sodium Chloride 0.9% 1000 Ml IV 10/05/21 22:59 Not Given .Q10H VERNA Levofloxacin/Dextrose Confirm 09/05/21 22:58 Levofloxacin 500mg/100ml D5w Administered 09/05/21 22:59 Dose 500 mg in 100 mls @ ud IV .STK-MED ONE Levofloxacin/Dextrose 500 mg in 100 mls @ 100 mls/hr 09/06/21 01:39 09/06/21 07:19 Levofloxacin 500mg/100ml D5w IV 09/06/21 02:38 Not Given STAT STA Vancomycin HCl 1.25 gm in 250 mls @ 150 mls/hr 09/06/21 10:00 09/07/21 09:06 Vancomycin 1.25 Gm/250 Ml Bag IV 09/09/21 09:59 150 mls/hr Q12HT VERNA Administration Lisinopril 20 mg 09/06/21 10:00 09/07/21 09:05 Lisinopril 20 Mg Tablet PO 10/06/21 09:59 20 mg DAILY VERNA Administration Metoprolol Tartrate 50 mg 09/06/21 10:00 09/07/21 09:05 Metoprolol Tartrate 50 Mg Tablet PO 10/06/21 09:59 50 mg BID VERNA Administration Nicotine 14 mg 09/06/21 10:00 09/07/21 09:06 Nicotine 14 Mg/Patch Patch TOP 10/06/21 09:59 14 mg DAILY VERNA Administration Non-Formulary Medication 1 each 09/06/21 08:47 09/06/21 10:21 Pharmacy Dose Request: Vancomycin 1 Each IV 09/06/21 08:48 1 each STAT STA Administration Non-Formulary Medication 1 tab 09/06/21 10:00 Lisinopril/Hydrochlorothiazide [Lisinopril-Hctz 20-12.5 Mg Tab] PO 10/06/21 09:59 DAILY VERNA Non-Formulary Medication 1 each 09/07/21 12:30 Pharmacy Dosing Request [facility] 09/07/21 12:31 STAT ONE Patient Own Med : 2 each 09/06/21 07:10 Albuterol Inhaler IH 10/06/21 07:09 Q4HPRN PRN wheezing Phenazopyridine HCl 100 mg 09/06/21 14:30 09/07/21 09:05 Phenazopyridine Hcl 200 Mg Tablet PO 10/06/21 14:29 100 mg BID VERNA Administration Pyridoxine HCl 100 mg 09/06/21 14:00 09/06/21 14:46 Pyridoxine Hcl 100 Mg Tablet PO 10/06/21 13:59 Not Given BID VERNA Intake & Output (Last 24 hours) 09/06/21 09/07/21 09/08/21 09/09/21 11:59 11:59 11:59 11:59 Intake Total 735 1680 Output Total 425 1300 350 Balance 310 380 -350 Weight 82.7 kg Microbiology Results (Last 24 hours) 09/05/21 21:00 Clean Catch Midstream Urine Culture - Final MIXED PJ; 3 OR MORE TYPES. NO PREDOMINANT ORGANISM. NO FURTHER WORKUP. PLEASE RESUBMIT IF CLINICALLY INDICATED. Orders (Last 24 hours) Category Date Time Status Pharmacy Dosing Request Med 09/07/21 12:30 Discontinued 1 each STAT ONE Therapuetic Drug Level Monitor [Trough Drug Levels] Med 09/07/21 21:30 Discontinued 1 IJ 1XONLY ONE Patient Care Notes (Last 24 hours) 09/07/21 13:34 Nursing Note by Gabby Proctor I FAXED PATIENTS D/C PAPERWORK TO [facility] [employer] AND CALLED TO LET THEM KNOW OF DISCHARGE TIME [phone]. Initialized on 09/07/21 13:34 - END OF NOTE Code(s): N12 - TUBULO-INTERSTITIAL NEPHRITIS, NOT SPCF ACUTE OR CHRONIC (2) UTI (urinary tract infection) Status: Acute Priority: High Code(s): N39.0 - URINARY TRACT INFECTION, SITE NOT SPECIFIED (3) Hyponatremia Status: Resolved Code(s): E87.1 - HYPO-OSMOLALITY AND HYPONATREMIA (4) Ulcer of extremity due to chronic venous insufficiency Status: Chronic Code(s): L98.499 - NON-PRESSURE CHRONIC ULCER OF SKIN OF SITES W UNSP SEVERITY; I87.2 - VENOUS INSUFFICIENCY (CHRONIC) (PERIPHERAL) (5) Peripheral vascular disease of extremity with claudication Status: Chronic Code(s): I73.9 - PERIPHERAL VASCULAR DISEASE, UNSPECIFIED - Discharge Discharge Date: 09/07/21 Disposition: HOME HEALTH SERVICE Condition: Stable Prescriptions: New Linezolid [Zyvox] 600 mg PO BID 7 Days #14 tablet Continue Aspirin EC 325 mg [Ecotrin 325 MG] 325 mg PO DAILY Metoprolol Tartrate 50 mg [Lopressor 50 MG] 50 mg PO BID #60 tablet Lisinopril/Hydrochlorothiazide [Lisinopril-Hctz 20-12.5 mg Tab] 1 tab PO DAILY Phenazopyridine HCl 200 mg [Pyridium 200 mg] 200 mg PO TID #10 tablet Albuterol Common Canister [Ventolin Common Canister] 1 puff IH Q4-6HPRN PRN PRN Reason: Shortness Of Breath/Wheezing Discontinued Ciprofloxacin [Cipro 500 MG] 500 mg PO BID Instructions: Preventing Falls in the Older Adult, MRSA (DC), Urinary Tract Inf ection, Adult (DC) Follow up with: TASIA CHRISTENSEN MD [Primary Care Provider] - 09/14/21 10:30 am (at [place] )
== END 2021-09-07 12:53 | disposition home health service (06) ==
LOC: ED 18:40 → MED SURG 09-06 01:34
PROVIDERS: ADMIT General Practice; ATTEND General Practice
DX: N12 Tubulo-interstitial nephritis, not specified as acute or chronic (principal); N39.0 Urinary tract infection, site not specified; E87.1 Hypo-osmolality and hyponatremia; L98.499 Non-pressure chronic ulcer of skin of other sites with unspecified severity; I87.2 Venous insufficiency (chronic) (peripheral); I73.9 Peripheral vascular disease, unspecified; I11.0 Hypertensive heart disease with heart failure; I50.9 Heart failure, unspecified; I25.10 Atherosclerotic heart disease of native coronary artery without angina pectoris; I25.2 Old myocardial infarction; J44.9 Chronic obstructive pulmonary disease, unspecified; Z20.828 Contact with and (suspected) exposure to other viral communicable diseases; Z72.0 Tobacco use; Z79.899 Other long term (current) drug therapy
CPT/HCPCS: 0241U; 36000; 36415; 80048; 80053; 81015; 82150; 83605; 83690; 85025; 87086; 94760; 96374; 96375; 97161; 99284; G0378; J1956; A9270-GY; J3370

== ENCOUNTER 2021-12-29 15:47 | Emergency (ER) | payer MEDICARE ==
--- NOTE | 2021-12-29 16:45 | ERPHSYRPT ---
- History of Present Illness Time Seen by Provider: 12/29/21 15:58 Source: patient Exam Limitations: no limitations Patient Subjective Stated Complaint: was told by nurse to come to ER for right lower extremity cellulitis Triage Nursing Assessment: right lower extremity redness, swelling Physician History: 71-year-old male with history of hypertension, congestive heart failure, peripheral vascular disease status post stenting, chronic ulceration right medial lower leg/ankle area presented in the ER with progressive worsening and excoriation of skin with open dry area worsening for the last couple of months. Does report swelling around but no pain, fever or chills. Denies any fall or trauma. Patient reported it was getting better and was having continuous home health nurse follow-up until lately few weeks ago when it dropped out. Denies any chest pain palpitations or shortness of breath but what he has at his baseline from CHF. Timing/Duration: week(s), constant, gradual onset, worse Severity: moderate Location: feet, extremities Possible Causes: other Associated Symptoms: edema, rash Allergies/Adverse Reactions: Penicillins Allergy (Severe, Verified 12/29/21 16:45) Anaphylactic Reaction Home Medications: Aspirin EC 325 mg [Ecotrin 325 MG] 325 mg PO DAILY 02/18/19 [History] Lisinopril/Hydrochlorothiazide [Lisinopril-Hctz 20-12.5 mg Tab] 1 tab PO DAILY 05/08/21 [History] Albuterol Common Canister [Ventolin Common Canister] 1 puff IH Q4-6HPRN PRN 09/06/21 [History] Hx Tetanus, Diphtheria Vaccination/Date Given: Yes Hx Influenza Vaccination/Date Given: No Hx Pneumococcal Vaccination/Date Given: No Immunizations Up to Date: No Travel Risk - International Travel Have you traveled outside of the country in past 3 weeks: No - Coronavirus Screening Are you exhibiting any of the following symptoms?: No Close contact with a COVID-19 positive Pt in past 14-21 Days: No - Vaccine Status Have you recieved a Covid-19 vaccination: No - Review of Systems Constitutional: No Symptoms Ears, Nose, & Throat: No Symptoms Respiratory: Cough, Dyspnea Cardiac: Edema Abdominal/Gastrointestinal: No Symptoms Genitourinary Symptoms: No Symptoms Musculoskeletal: No Symptoms Skin: Cellulitis, Rash, Skin Lesions Neurological: No Symptoms Psychological: No Symptoms Endocrine: No Symptoms Hematologic/Lymphatic: No Symptoms Immunological/Allergic: No Symptoms - Past Medical History Pertinent Past Medical History: Yes Neurological History: Stroke ENT History: No Pertinent History Cardiac History: Congestive Heart Failure, Coronary Artery Disease, Hypertension Respiratory History: COPD Endocrine Medical History: No Pertinent History, Liver Disease Musculoskeletal History: No Pertinent History GI Medical History: Cirrhosis, Other History: No Pertinent History Psycho-Social History: No Pertinent History Male Reproductive Disorders: No Pertinent History Other Medical History: venous insufficiency - Past Surgical History Past Surgical History: Yes Neuro Surgical History: No Pertinent History Cardiac: Vascular Surgery Respiratory: No Pertinent History Gastrointestinal: No Pertinent History Genitourinary: No Pertinent History Musculoskeletal: No Pertinent History Male Surgical History: No Pertinent History Other Surgical History: stent to tono femoral artery, caroditectomy. Patient is a poor historian. History recalled from previous admission. - Social History Smoking Status: Current every day smoker How long have you smoked: years Exposure to second hand smoke: No Drug Use: none Patient Lives Alone: Yes Significant Family History: no pertinent family hx - Nursing Vital Signs Nursing Vital Signs: Initial Vital Signs Pulse Rate 99 H 12/29/21 16:00 Respiratory Rate 24 12/29/21 16:00 Blood Pressure 187/92 12/29/21 16:00 O2 Sat by Pulse Oximetry 97 12/29/21 16:00 Pain Scale Pain Intensity 0 - Physical Exam General Appearance: no apparent distress, alert Eye Exam: PERRL/EOMI Ears, Nose, Throat Exam: normal ENT inspection Neck Exam: normal inspection, full range of motion Respiratory Exam: wheezing, No respiratory distress Cardiovascular Exam: regular rate/rhythm, normal heart sounds Extremity Exam: normal inspection Neurologic Exam: alert, oriented x 3, cooperative Skin Exam: rash (Excoriation with this rash on the right medial lower leg/ankle area with mild erythema around. Nontender. Bilateral feet edema and delayed cap refill.), abrasion SpO2 Interpretation: normal SpO2: 97 O2 Delivery: Room Air Ordered Tests: Active Orders 24 hr Category Date Time Status BLOOD CULTURE Stat Lab 12/29/21 17:30 Received CBC W DIFF Stat Lab 12/29/21 16:35 Completed CMP Stat Lab 12/29/21 17:30 Completed Lactic Acid Stat Lab 12/29/21 16:35 Completed PROCALCITONIN Stat Lab 12/29/21 17:30 Completed Medication Summary Discontinued Medications Generic Name Dose Route Start Last Admin Trade Name Rika PRN Reason Stop Dose Admin Doxycycline Hyclate 100 mg 12/29/21 18:02 12/29/21 18:16 Doxycycline Hyclate 100 Mg Tablet PO 12/29/21 18:03 100 mg STAT ONE Administration Doxycycline Hyclate Confirm 12/29/21 18:15 Doxycycline Hyclate 100 Mg Tablet Administered 12/29/21 18:16 Dose 100 mg .ROUTE .STK-MED ONE Lab/Rad Data: Laboratory Result Diagrams 12/29/21 16:35 12/29/21 17:30 Laboratory Results 12/29/21 12/29/21 12/29/21 Range/Units 17:30 17:30 16:35 WBC (4.0-10.5) x10^3/uL RBC (4.1-5.6) x10^6/uL Hgb (12.5-18.0) g/dL Hct (42-50) % MCV (78-100) fL MCH (26-32) pg MCHC (32-36) g/dL RDW (11.5-14.0) % Plt Count (150-450) x10^3/uL MPV (7.5-11.0) fL Gran % (36.0-66.0) % Immature Gran % (Auto) (0.00-0.4) % Nucleat RBC Rel Count (0.00-0.1) % Eos # (Auto) (0-0.5) x10^3/uL Immature Gran # (Auto) (0.00-0.03) x10^3u/L Absolute Lymphs (auto) (1.0-4.6) x10^3/uL Absolute Monos (auto) (0.0-1.3) x10^3/uL Absolute Nucleated RBC (0.00-0.01) x10^3u/L Lymphocytes % (24.0-44.0) % Monocytes % (0.0-12.0) % Eosinophils % (0.00-5.0) % Basophils % (0.0-0.4) % Absolute Granulocytes (1.4-6.9) x10^3/uL Basophils # (0-0.4) x10^3/uL Sodium 131 L (137-145) mmol/L Potassium 4.4 (3.5-5.1) mmol/L Chloride 92 L (98-107) mmol/L Carbon Dioxide 33 H (22-30) mmol/L Anion Gap 10.7 (5-15) MEQ/L BUN 17 (9-20) mg/dL Creatinine 0.83 (0.66-1.25) mg/dL Estimated GFR > 60.0 ML/MIN Glucose 99 (74-106) mg/dL Lactic Acid 1.0 (0.4-2.0) Calcium 8.9 (8.4-10.2) mg/dL Total Bilirubin 0.70 (0.2-1.3) mg/dL AST 34 (17-59) U/L ALT 32 (0-50) U/L Alkaline Phosphatase 148 H (38-126) U/L Serum Total Protein 8.4 H (6.3-8.2) g/dL Albumin 4.5 (3.5-5.0) g/dL Procalcitonin 0.059 (0.030-0.080) ng/mL 12/29/21 Range/Units 16:35 WBC 11.7 H (4.0-10.5) x10^3/uL RBC 4.48 (4.1-5.6) x10^6/uL Hgb 13.4 (12.5-18.0) g/dL Hct 41.6 L (42-50) % MCV 92.9 (78-100) fL MCH 29.9 (26-32) pg MCHC 32.2 (32-36) g/dL RDW 14.0 (11.5-14.0) % Plt Count 236 (150-450) x10^3/uL MPV 9.5 (7.5-11.0) fL Gran % 75.2 H (36.0-66.0) % Immature Gran % (Auto) 0.5 H (0.00-0.4) % Nucleat RBC Rel Count 0.0 (0.00-0.1) % Eos # (Auto) 0.11 (0-0.5) x10^3/uL Immature Gran # (Auto) 0.06 H (0.00-0.03) x10^3u/L Absolute Lymphs (auto) 1.67 (1.0-4.6) x10^3/uL Absolute Monos (auto) 1.00 (0.0-1.3) x10^3/uL Absolute Nucleated RBC 0.00 (0.00-0.01) x10^3u/L Lymphocytes % 14.2 L (24.0-44.0) % Monocytes % 8.5 (0.0-12.0) % Eosinophils % 0.9 (0.00-5.0) % Basophils % 0.7 (0.0-0.4) % Absolute Granulocytes 8.80 H (1.4-6.9) x10^3/uL Basophils # 0.08 (0-0.4) x10^3/uL Sodium (137-145) mmol/L Potassium (3.5-5.1) mmol/L Chloride (98-107) mmol/L Carbon Dioxide (22-30) mmol/L Anion Gap (5-15) MEQ/L BUN (9-20) mg/dL Creatinine (0.66-1.25) mg/dL Estimated GFR ML/MIN Glucose (74-106) mg/dL Lactic Acid (0.4-2.0) Calcium (8.4-10.2) mg/dL Total Bilirubin (0.2-1.3) mg/dL AST (17-59) U/L ALT (0-50) U/L Alkaline Phosphatase (38-126) U/L Serum Total Protein (6.3-8.2) g/dL Albumin (3.5-5.0) g/dL Procalcitonin (0.030-0.080) ng/mL - Progress Progress: unchanged Progress Note: 12/29/21 18:16 Grossly unremarkable work-up. Patient's seems to have peripheral vascular disease related ulceration but does have some swelling around, will give him doxycycline and have him outpatient follow-up with primary care/wound center for further evaluation. Counseled pt/family regarding: lab results, diagnosis, need for follow-up - Departure Departure Disposition: Home Clinical Impression: Cellulitis, Peripheral vascular insufficiency Condition: Stable Critical Care Time: No Referrals: TASIA CHRISTENSEN MD [Primary Care Provider] - Follow Up with PCP/3 days Instructions: Cellulitis (Skin Infection), Adult ED Additional Instructions: Follow-up with your primary care and cardiology for reevaluation and may need to follow-up with wound center. Daily wet-to-dry dressing. Continue with antibiotics. Return to ER for increasing redness swelling or if develop fever chills/pain etc. Prescriptions: Doxycycline Hyclate 100 mg [Vibramycin 100 MG] 100 mg PO BID #14 tab
[2021-12-29 17:33] LABS: Basophil (Absolute #) 0.08 x10^3/uL (0-0.4); Eosinophil % 0.9 % (0.00-5.0); Eosinophil (Absolute #) 0.11 x10^3/uL (0-0.5); Hematocrit 41.6 % (42-50); Hemoglobin 13.4 g/dL (12.5-18.0); Lymphocyte (Absolute #) 1.67 x10^3/uL (1.0-4.6); Lymphocytes % 14.2 % (24.0-44.0); Mean Cell Volume 92.9 fL (78-100); Mean Corpuscular Hemoglobin 29.9 pg (26-32); Mean Corpuscular Hgb Concent. 32.2 g/dL (32-36); Mean Platelet Volume 9.5 fL (7.5-11.0); Monocytes % 8.5 % (0.0-12.0); Neutrophil % 75.2 % (36.0-66.0); Platelet Count 236 x10^3/uL (150-450); Red Blood Count 4.48 x10^6/uL (4.1-5.6); White Blood Count 11.7 x10^3/uL (4.0-10.5)
[2021-12-29 17:50] LABS: ALBUMIN 4.5 g/dL (3.5-5.0); ALKALINE PHOSPHATASE 148 U/L (38-126); ANION GAP 10.7 MEQ/L (5-15); BLOOD UREA NITROGEN 17 mg/dL (9-20); CHLORIDE 92 mmol/L (98-107); Calcium 8.9 mg/dL (8.4-10.2); Carbon Dioxide 33 mmol/L (22-30); Creatinine 1 0.83 mg/dL (0.66-1.25); EST GLOMERULAR FILTRATION RATE > 60.0 ML/MIN; Glucose 99 mg/dL (74-106); Potassium 4.4 mmol/L (3.5-5.1); SGOT/AST 34 U/L (17-59); SGPT/ALT 32 U/L (0-50); SODIUM 131 mmol/L (137-145); Total Protein 8.4 g/dL (6.3-8.2)
[2021-12-29] MEDS ORDERED: Vibramycin 100 MG PO ONE (18:02)
[2021-12-29] MEDS ORDERED: Vibramycin 100 MG ONE (18:15)
[2021-12-29 18:21] VITALS: O2SAT 97
[2021-12-29 18:22] VITALS: BP 150/70; PULSE 100
== END 2021-12-29 18:26 | disposition home or self-care (01) ==
LOC: ED 15:47
DX: L03.115 Cellulitis of right lower limb (principal); I73.9 Peripheral vascular disease, unspecified; I11.0 Hypertensive heart disease with heart failure; I50.9 Heart failure, unspecified; J44.9 Chronic obstructive pulmonary disease, unspecified; Z72.0 Tobacco use; Z79.899 Other long term (current) drug therapy; Z28.310 Unvaccinated for COVID-19
CPT/HCPCS: 36415; 80053; 83605; 84145; 85025; 87040; 99283; A9270-GY

== ENCOUNTER 2022-02-13 11:54 | Emergency (ER) | payer MEDICARE ==
[2022-02-13 12:04] VITALS: O2SAT 98
[2022-02-13 12:19] LABS: Appearance SLIGHTLY CLOUDY (CLEAR); Bilirubin MODERATE (NEGATIVE); Glucose NEGATIVE (NEGATIVE); Ketones TRACE (NEGATIVE); Nitrite POSITIVE (NEGATIVE); Protein,Urine Dip 30 (Negative); RBC TRACE-INTACT Ery/ul (0-5); Specific Gravity 1.015 (1.005-1.025); Urobilinogen 4 mg/dL (0-1)
[2022-02-13 12:20] LABS: Dipstick done @ ? MAIN LAB
[2022-02-13 12:21] LABS: WBC 51-100 /HPF (0-5)
[2022-02-13 12:22] LABS: Urine Cultured Indicated? YES
[2022-02-13] MEDS: Cipro 500 MG PO STA (12:55)
[2022-02-13] MEDS ORDERED: Cipro 500 MG ONE (12:55)
--- NOTE | 2022-02-13 13:00 | ERPHSYRPT ---
- History of Present Illness Time Seen by Provider: 02/13/22 12:10 Source: patient Exam Limitations: no limitations Patient Subjective Stated Complaint: Pt states "I have an infection. It sometimes hurts when I pee and sometimes it is really yellow." Triage Nursing Assessment: Pt presented alert and oriented X 3, skin pwd. Pt ambulates with an upright steady gait, able to speak in clear full senteneces. Pt in on apparent respiratory distress. Physician History: Patient is a 71-year-old male presents emergency department for evaluation of dysuria and suprapubic pain. Pain started approximately 3 days ago. Patient states his urine is discolored. Patient has a history of urinary tract infection and states that his symptoms are the same. No fever. No trauma. No back pain. No nausea or vomiting. No abdominal pain. Symptoms are mild to moderate in intensity. No specific worsening improving factors. Patient voices no other complaints or concerns at this time. Portions of this note were created with voice recognition technology. There may be grammatical, spelling, punctuation or sound alike errors Timing/Duration: day(s) (2 days ago) Severity: moderate Modifying Factors: Improves With: nothing Associated Symptoms: denies symptoms Allergies/Adverse Reactions: Penicillins Allergy (Severe, Verified 12/29/21 16:45) Anaphylactic Reaction Home Medications: Aspirin EC 325 mg [Ecotrin 325 MG] 325 mg PO DAILY 02/18/19 [History] Lisinopril/Hydrochlorothiazide [Lisinopril-Hctz 20-12.5 mg Tab] 1 tab PO DAILY 05/08/21 [History] Albuterol Common Canister [Ventolin Common Canister] 1 puff IH Q4-6HPRN PRN 09/06/21 [History] Hx Tetanus, Diphtheria Vaccination/Date Given: Yes Hx Influenza Vaccination/Date Given: No Hx Pneumococcal Vaccination/Date Given: No Immunizations Up to Date: Yes Travel Risk - International Travel Have you traveled outside of the country in past 3 weeks: No - Coronavirus Screening Are you exhibiting any of the following symptoms?: No Close contact with a COVID-19 positive Pt in past 14-21 Days: No - Vaccine Status Have you recieved a Covid-19 vaccination: No - Review of Systems Constitutional: No Symptoms, No Fever, No Chills Eyes: No Symptoms Ears, Nose, & Throat: No Symptoms Respiratory: No Symptoms, No Cough, No Dyspnea Cardiac: No Symptoms, No Chest Pain, No Edema, No Syncope Abdominal/Gastrointestinal: No Symptoms, No Abdominal Pain, No Nausea, No Vomiting, No Diarrhea Genitourinary Symptoms: No Symptoms, No Dysuria Musculoskeletal: No Symptoms, No Back Pain, No Neck Pain Skin: No Symptoms, No Rash Neurological: No Symptoms, No Dizziness, No Focal Weakness, No Sensory Changes Psychological: No Symptoms Endocrine: No Symptoms Hematologic/Lymphatic: No Symptoms Immunological/Allergic: No Symptoms All Other Systems: Reviewed and Negative - Past Medical History Pertinent Past Medical History: Yes Neurological History: Stroke ENT History: No Pertinent History Cardiac History: Congestive Heart Failure, Coronary Artery Disease, Hypertension Respiratory History: COPD Endocrine Medical History: No Pertinent History, Liver Disease Musculoskeletal History: No Pertinent History GI Medical History: Cirrhosis, Other History: No Pertinent History Psycho-Social History: No Pertinent History Male Reproductive Disorders: No Pertinent History Other Medical History: venous insufficiency - Past Surgical History Past Surgical History: Yes Neuro Surgical History: No Pertinent History Cardiac: Vascular Surgery Respiratory: No Pertinent History Gastrointestinal: No Pertinent History Genitourinary: No Pertinent History Musculoskeletal: No Pertinent History Male Surgical History: No Pertinent History Other Surgical History: stent to tono femoral artery, caroditectomy. Patient is a poor historian. History recalled from previous admission. - Social History Smoking Status: Current every day smoker How long have you smoked: years Exposure to second hand smoke: No Drug Use: none Patient Lives Alone: Yes Significant Family History: no pertinent family hx - Nursing Vital Signs Nursing Vital Signs: Initial Vital Signs Temperature 97.6 F 02/13/22 11:59 Pulse Rate 118 H 02/13/22 11:59 Respiratory Rate 22 02/13/22 11:59 Blood Pressure 111/80 02/13/22 11:59 O2 Sat by Pulse Oximetry 98 02/13/22 11:59 Pain Scale Pain Intensity 0 - Physical Exam General Appearance: no apparent distress, alert Eye Exam: PERRL/EOMI, eyes nml inspection Ears, Nose, Throat Exam: normal ENT inspection, TMs normal, pharynx normal, moist mucous membranes Neck Exam: normal inspection, non-tender, supple, full range of motion Respiratory Exam: normal breath sounds, lungs clear, No respiratory distress Cardiovascular Exam: regular rate/rhythm, normal heart sounds, normal peripheral pulses Gastrointestinal/Abdomen Exam: soft, normal bowel sounds, other (Mild suprapubic tenderness.), No tenderness, No mass Back Exam: normal inspection, normal range of motion, No CVA tenderness, No v ertebral tenderness Extremity Exam: normal inspection, normal range of motion, pelvis stable Neurologic Exam: alert, oriented x 3, cooperative, normal mood/affect, nml cerebellar function, nml station & gait, sensation nml, No motor deficits Skin Exam: normal color, warm, dry, No rash Lymphatic Exam: No adenopathy SpO2 Interpretation: normal SpO2: 98 O2 Delivery: Room Air - Course Nursing assessment & vital signs reviewed: Yes Ordered Tests: Active Orders 24 hr Category Date Time Status Clean Catch Urine Specimen STAT Care 02/13/22 12:07 Active CULTURE,URINE Stat Lab 02/13/22 12:08 Received UA W/RFX CULTURE Stat Lab 02/13/22 12:08 Completed Urine Triage Profile Stat Lab 02/13/22 12:08 Ordered Lab/Rad Data: Laboratory Results 02/13/22 Range/Units 12:08 Urinalys Dipstick Clnc MAIN LAB Urine Color [place] (YELLOW) Urine Appearance SLIGHTLY CLOUDY A (CLEAR) Urine pH 6.0 (5-6) Ur Specific [place] 1.015 (1.005-1.025) POC Urine Protein Conf 30 A (Negative) Urine Ketones TRACE A (NEGATIVE) Urine Nitrite POSITIVE A (NEGATIVE) Urine Bilirubin MODERATE A (NEGATIVE) Urine Urobilinogen 4 A (0-1) mg/dL Urine Leukocytes SMALL A (NEGATIVE) Urine WBC (Auto) 51-100 A (0-5) /HPF Urine RBC (Auto) 6-10 A (0-2) /HPF U Epithel Cells (Auto) NONE (FEW) /HPF Urine Bacteria (Auto) NONE (NEGATIVE) /HPF Urine RBC TRACE-INTACT A (0-5) [place]/ul Ur Culture Indicated? YES Urine Glucose NEGATIVE (NEGATIVE) mg/dL - Progress Progress: improved Progress Note: Patient reassessed. Patient resting comfortably. Patient declined pain medication. Work-up reveals a urinary tract infection. Patient received an oral dose of ciprofloxacin in our ED. A prescription for the same was forwarded to patient's pharmacy. Patient agrees to follow-up with primary care doctor within 48 hours for evaluation. He voices no other complaints or concerns at this time. Portions of this note were created with voice recognition technology. There may be grammatical, spelling, punctuation or sound alike errors 02/13/22 12:57 Counseled pt/family regarding: lab results, diagnosis - Departure Departure Disposition: Home Clinical Impression: UTI (urinary tract infection) Condition: Stable Critical Care Time: No Referrals: TASIA CHRISTENSEN MD [Primary Care Provider] - Follow up/PCP as directed Additional Instructions: Discharge/Care Plan LUIS HONG was seen on 02/13/22 in the Emergency Room. The patient was counseled regarding Diagnosis,Lab results, Imaging studies, need for follow up and when to return to the Emergency Room. Prescriptions given: Discharge Note I have spoken with the patient and/or caregivers. I have explained the patient's condition, diagnosis and treatment plan based on the information available to me at this time. I have answered the patient's and/or caregiver's questions and a ddressed any concerns. The patient and/or caregivers have as good understanding of the patient's diagnosis, condition and treatment plan as can be expected at this point. The vital signs have been stable. The patient's condition is stable and appropriate for discharge from the emergency department. The patient will pursue further outpatient evaluation with the primary care physician or other designated or consulting physician as outlined in the discharge instructions. The patient and/or caregivers are agreeable to this plan of care and follow-up instructions have been explained in detail. The patient and/or caregivers have received these instruction. The patient/and or caregivers are aware that any significant change in condition or worsening of symptoms should prompt an immediate return to this or the closest emergency department or call 911. Prescriptions: Ciprofloxacin [Cipro 500 MG] 500 mg PO BID 10 Days #20 tablet
[2022-02-13 13:07] VITALS: BP 112/78; PULSE 97
[2022-02-13 13:09] LABS: Amphetamine,Urine NEGATIVE (NEGATIVE); Barbiturate,Urine NEGATIVE (NEGATIVE); Benzodiazepine,Urine NEGATIVE (NEGATIVE); Cocaine,Urine NEGATIVE (NEGATIVE); Methadone,Urine NEGATIVE (NEGATIVE); Opiate,Urine NEGATIVE (NEGATIVE); PCP,Urine NEGATIVE (NEGATIVE); THC,Urine NEGATIVE (NEGATIVE)
== END 2022-02-13 13:07 | disposition home or self-care (01) ==
LOC: ED 11:54
DX: N39.0 Urinary tract infection, site not specified (principal); R10.2 Pelvic and perineal pain; I11.0 Hypertensive heart disease with heart failure; I50.9 Heart failure, unspecified; J44.9 Chronic obstructive pulmonary disease, unspecified; Z72.0 Tobacco use; Z79.899 Other long term (current) drug therapy; Z28.310 Unvaccinated for COVID-19
CPT/HCPCS: 80307; 81015; 87077; 87086; 87186; 99282; A9270-GY

== ENCOUNTER 2022-02-28 15:28 | Emergency (ER) | payer MEDICARE ==
[2022-02-28] MEDS ORDERED: Quelicin Fliptop 200 MG/10 ML IV ONE (15:29)
[2022-02-28] MEDS ORDERED: DIPRIVAN 200 MG/20 ML IV ONE (15:29)
[2022-02-28] MEDS ORDERED: Amidate 20 MG/10 ML IV ONE (15:29)
[2022-02-28] MEDS ORDERED: DUONEB 0.5-3 MG/3 ml Neb IH ONE ×2 (15:41)
[2022-02-28] MEDS ORDERED: Lasix 40 MG/4 ML IV ONE (15:41)
[2022-02-28] MEDS ORDERED: solu-MEDROL 125 MG, Sterile H2O 10 ml 2 ML IV ONE ×2 (15:41)
[2022-02-28] MEDS ORDERED: Lasix 40 MG/4 ML ONE (15:42)
[2022-02-28] MEDS ORDERED: Sterile H2O 10 ml IJ ONE (15:43)
[2022-02-28] MEDS ORDERED: NITRO-BID 2% UD PACKETS ONE (15:44)
[2022-02-28] MEDS ORDERED: solu-MEDROL ONE (15:44)
[2022-02-28] MEDS: NITRO-BID 2% UD PACKETS TOP ONE ×2 (15:45→16:09)
[2022-02-28 15:57] LABS: A-aADO2 405; ABG HEMOGLOBIN 13.6; ABG POTASSIUM 4.3 (3.5-5.1); ABG SITE LEFT RADIAL; ALLEN TEST OK? YES; ARTERIAL BLD GAS O2 SATURATION 99.8 % (95-100); ARTERIAL BLOOD GAS BASE EXCESS 7.2 (-2.0-2.0); ARTERIAL BLOOD GAS FIO2 100 %; ARTERIAL BLOOD GAS PCO2 51 mmHg (35-45); ARTERIAL BLOOD GAS PO2 244 mmHg (75-100); ARTERIAL BLOOD GAS pH 7.42 (7.35-7.45); HCO3- 33.1 (22-28); HGB O2 SAT 93.9 g/dF (94-100); Lactic Acid 0.8 (0.4-2.0); Methhemoglobin 0.9 % (1.4-1.5)
[2022-02-28] MEDS ORDERED: Ativan 2 MG/1 ML VIAL IV ONE (16:06)
[2022-02-28] MEDS ORDERED: Ativan 2 MG/1 ML VIAL ONE (16:08)
--- NOTE | 2022-02-28 16:22 | XRAY ---
Indication: Short of breath, cough, congestion. Comparison: May 07, 2021 Portable chest demonstrates new right base consolidating infiltrate/atelectasis/effusion. Remaining heart and left lung unremarkable. Bony thorax intact.
[2022-02-28 16:25] LABS: Absolute Neutrophil Ct (ANC) 7.11 x10^3/uL (1.4-6.9); Basophil (Absolute #) 0.08 x10^3/uL (0-0.4); Eosinophil % 0.4 % (0.00-5.0); Eosinophil (Absolute #) 0.04 x10^3/uL (0-0.5); Hematocrit 40.6 % (42-50); Hemoglobin 12.9 g/dL (12.5-18.0); Lymphocytes % 21.2 % (24.0-44.0); Mean Cell Volume 91.6 fL (78-100); Mean Corpuscular Hemoglobin 29.1 pg (26-32); Mean Corpuscular Hgb Concent. 31.8 g/dL (32-36); Monocyte (Absolute #) 0.89 x10^3/uL (0.0-1.3); Monocytes % 8.6 % (0.0-12.0); Neutrophil % 68.6 % (36.0-66.0); Platelet Count 324 x10^3/uL (150-450); Red Blood Count 4.43 x10^6/uL (4.1-5.6); Red Cell Distribution Width 15.1 % (11.5-14.0); White Blood Count 10.4 x10^3/uL (4.0-10.5)
[2022-02-28] MEDS ORDERED: Zithromax 500 MG/ 250 ML NaCl Premix 500 MG/250 ML IVPB IV STA (16:29)
[2022-02-28] MEDS ORDERED: AZACTAM 1 GM*** 2 GM in Sodium Chloride 0.9% 100 ML IV ONE (16:30)
--- NOTE | 2022-02-28 16:35 | ERPHSYRPT ---
<DINHMONIE - Last Filed: 02/28/22 23:02> - History of Present Illness Source: patient, EMS Exam Limitations: no limitations Patient Subjective Stated Complaint: Pt states "I cannot breath again." Triage Nursing Assessment: Pt presented alert and oriented x 3, skin pwd. pt is anxious, unable to sit still, pt has non rebreather on. Timing/Duration: hour(s), constant, gradual onset, worse Activities at Onset: rest Severity of Dyspnea-Max: severe Severity of Dyspnea-Current: severe Possible Cause: unknown cause Modifying Factors: Improves With: oxygen. Worsens With: coughing Associated Symptoms: cough, chest pain/discomfort, edema, heaviness, leg swelling, productive cough, tightness Hx Tetanus, Diphtheria Vaccination/Date Given: Yes Hx Influenza Vaccination/Date Given: No Hx Pneumococcal Vaccination/Date Given: No Immunizations Up to Date: Yes <TEDDY ANTHONY - Last Filed: 03/01/22 13:46> - History of Present Illness Time Seen by Provider: 02/28/22 15:33 Physician History: 71-year-old male with history of hypertension, hyperlipidemia, congestive heart failure, peripheral vascular disease with stenting, atrial fibrillation not anticoagulated, COPD, tobacco abuse presented in the ER with chief complaint of worsening shortness of breath for the last few hours with cough productive of yellow-green sputum copious in amount. Patient was hypoxic with oxygen satura tion around 70s on EMS arrival, placed on nonrebreather and improved to upper 90s on presentation in the ER. Patient is tachypneic and tachycardic on presentation. Reports increased bilateral lower extremity swelling and having symptoms similar to last time when he had a CHF exacerbation. (TEDDY ANTHONY) Allergies/Adverse Reactions: Penicillins Allergy (Severe, Verified 12/29/21 16:45) Anaphylactic Reaction Home Medications: Aspirin EC 325 mg [Ecotrin 325 MG] 325 mg PO DAILY 02/18/19 [History] Lisinopril/Hydrochlorothiazide [Lisinopril-Hctz 20-12.5 mg Tab] 1 tab PO DAILY 05/08/21 [History] Albuterol Common Canister [Ventolin Common Canister] 1 puff IH Q4-6HPRN PRN 09/06/21 [History] Travel Risk - International Travel Have you traveled outside of the country in past 3 weeks: No - Coronavirus Screening Are you exhibiting any of the following symptoms?: Yes Symptoms: Shortness of Breath Close contact with a COVID-19 positive Pt in past 14-21 Days: No - Vaccine Status Have you recieved a Covid-19 vaccination: No <TEDDY ANTHONY - Last Filed: 03/01/22 13:46> - Review of Systems Constitutional: Fatigue Eyes: No Symptoms Ears, Nose, & Throat: No Symptoms Respiratory: Cough, Dyspnea, Dyspnea on Exertion (ROGERS), Wheezing Cardiac: Chest Pain, Edema Abdominal/Gastrointestinal: No Symptoms Genitourinary Symptoms: No Symptoms Musculoskeletal: Arthralgias Skin: No Symptoms Neurological: No Symptoms Psychological: No Symptoms Endocrine: No Symptoms Hematologic/Lymphatic: No Symptoms Immunological/Allergic: No Symptoms <TEDDY ANTHONY - Last Filed: 03/01/22 13:46> - Past Medical History Pertinent Past Medical History: Yes Neurological History: Stroke ENT History: No Pertinent History Cardiac History: Congestive Heart Failure, Coronary Artery Disease, Hypertension Respiratory History: COPD Endocrine Medical History: No Pertinent History, Liver Disease Musculoskeletal History: No Pertinent History GI Medical History: Cirrhosis, Other History: No Pertinent History Psycho-Social History: No Pertinent History Male Reproductive Disorders: No Pertinent History Other Medical History: venous insufficiency - Past Surgical History Past Surgical History: Yes Neuro Surgical History: No Pertinent History Cardiac: Vascular Surgery Respiratory: No Pertinent History Gastrointestinal: No Pertinent History Genitourinary: No Pertinent History Musculoskeletal: No Pertinent History Male Surgical History: No Pertinent History Other Surgical History: stent to tono femoral artery, caroditectomy. Patient is a poor historian. History recalled from previous admission. - Social History Smoking Status: Current every day smoker How long have you smoked: years Exposure to second hand smoke: No Drug Use: none Patient Lives Alone: Yes Significant Family History: no pertinent family hx <TEDDY ANTHONY - Last Filed: 03/01/22 13:46> - Physical Exam General Appearance: moderate distress, alert Eye Exam: PERRL/EOMI, eyes nml inspection Ears, Nose, Throat Exam: hearing grossly normal, pharyngeal erythema Neck Exam: normal inspection, supple, full range of motion Respiratory Exam: respiratory distress, diminished breath sounds, accessory muscle use, rhonchi, wheezing Cardiovascular/Chest Exam: normal heart sounds, edema, tachycardia, irregular Abdominal/Gastrointestinal Exam: soft, normal bowel sounds, No tenderness Extremity Exam: non-tender, normal range of motion Neurologic Exam: alert, oriented x 3, cooperative Skin Exam: normal color SpO2 Interpretation: hypoxic SpO2: 100 O2 Delivery: Non-rebreather <TEDDY ANTHONY - Last Filed: 03/01/22 13:46> - Nursing Vital Signs Nursing Vital Signs: Initial Vital Signs Temperature 97.6 F 02/28/22 15:29 Pulse Rate 88 02/28/22 15:29 Respiratory Rate 28 H 02/28/22 15:29 Blood Pressure 176/104 02/28/22 15:29 O2 Sat by Pulse Oximetry 96 02/28/22 15:29 Pain Scale Pain Intensity 0 Procedures - Intubation Time of Intubation: 18:40 Intubation Indications: airway protection, respiratory distress Intubation Method: glidescope Tube Size (cm): 7.5 Medications: Etomidate, Succinylcholine Endotracheal Tube Confirmation: good rise & fall of chest, stable or inc of O2 sat Intubation Complications: no complications Performed By: ED Physician <TEDDY ANTHONY - Last Filed: 03/01/22 13:46> Ordered Tests: Active Orders 24 hr Category Date Time Status CO2 Monitoring STAT Care 02/28/22 19:22 Completed Ethylene Oxide Panelboard Operator STAT Care 02/28/22 15:42 Completed EKG-ER Only STAT Care 02/28/22 15:41 Completed Myles [Catheter-[place] Myles] STAT Care 02/28/22 19:20 Completed IV Insertion STAT Care 02/28/22 15:41 Completed CHEST 1 VIEW (PORTABLE) Stat Exams 02/28/22 15:42 Completed CHEST 1 VIEW (PORTABLE) Stat Exams 02/28/22 18:58 Completed CHEST WITH CONTRAST [CT] Stat Exams 02/28/22 18:56 Completed ABG [ARTERIAL BLOOD GASES] Routine Lab 02/28/22 19:12 Completed ABG [ARTERIAL BLOOD GASES] Stat Lab 02/28/22 20:05 Completed ARTERIAL BLOOD GASES Stat Lab 02/28/22 15:45 Completed BLOOD CULTURE Stat Lab 02/28/22 16:15 Received CBC W DIFF Stat Lab 02/28/22 16:02 Completed CMP Stat Lab 02/28/22 16:02 Completed Lactic Acid Routine Lab 02/28/22 19:12 Completed Lactic Acid Stat Lab 02/28/22 15:45 Completed MAGNESIUM Stat Lab 02/28/22 16:02 Completed NT PRO BNP Stat Lab 02/28/22 16:02 Completed PROCALCITONIN Stat Lab 02/28/22 16:02 Completed TROPONIN Q4H Lab 02/28/22 16:02 Completed TROPONIN Q4H Lab 02/28/22 19:45 Completed UA W/RFX CULTURE Stat Lab 02/28/22 20:07 Completed Intubate Patient STAT RT 02/28/22 19:21 Completed Respiratory Therapy Assessment DAILY RT 02/28/22 15:54 Completed Vent Settings [Ventilator Management] STAT RT 02/28/22 19:17 Completed Medication Summary Discontinued Medications Generic Name Dose Route Start Last Admin Trade Name Freq PRN Reason Stop Dose Admin Albuterol/Ipratropium 3 ml 02/28/22 15:41 02/28/22 15:46 Ipratropium/Albuterol Sulfate 3 Ml Ampul.Neb IH 02/28/22 15:42 3 ml STAT ONE Administration Albuterol/Ipratropium Confirm 02/28/22 15:41 Ipratropium/Albuterol Sulfate 3 Ml Ampul.Neb Administered 02/28/22 15:42 Dose 3 ml IH .STK-MED ONE Methylprednisolone Sodium 0 mg 02/28/22 15:41 02/28/22 15:45 Succinate 125 mg/ Sterile IV 02/28/22 15:42 125 mg Water 2 ml STAT ONE Administration Furosemide 40 mg 02/28/22 15:41 02/28/22 15:45 Furosemide 40 Mg/4 Ml Vial IV 02/28/22 15:42 40 mg STAT ONE Administration Furosemide Confirm 02/28/22 15:42 Furosemide 40 Mg/4 Ml Vial Administered 02/28/22 15:43 Dose 40 mg .ROUTE .STK-MED ONE Azithromycin 500 mg in 250 mls @ 250 mls/hr 02/28/22 16:29 02/28/22 21:36 Zithromax 500 Mg/ 250 Ml Nacl Premix IV 02/28/22 17:28 Infused STAT STA Infusion Aztreonam 2 gm/ Sodium 100 mls @ 200 mls/hr 02/28/22 16:30 02/28/22 16:58 Chloride IV 02/28/22 16:59 200 mls/hr STAT ONE Administration Sodium Chloride Confirm 02/28/22 18:28 Sodium Chloride 0.9% 1000 Ml Administered 02/28/22 18:29 Dose 1,000 mls @ ud .ROUTE .STK-MED ONE Diltiazem HCl Confirm 02/28/22 18:39 Cardizem Drip 100 Mg/100 Ml D5w Administered 02/28/22 18:40 Dose 100 mls @ ud IV .STK-MED ONE Propofol Confirm 02/28/22 18:48 Propofol 1000 Mg/100 Ml Bottle Administered 02/28/22 18:49 Dose 100 mls @ ud IV .STK-MED ONE Azithromycin Confirm 02/28/22 20:00 Zithromax 500 Mg/ 250 Ml Nacl Premix Administered 02/28/22 20:01 Dose 500 mg in 250 mls @ ud IV .STK-MED ONE Lorazepam 1 mg 02/28/22 16:06 02/28/22 16:11 Lorazepam 2 Mg/1 Ml 2 Mg Vial IV 02/28/22 16:07 1 mg STAT ONE Administration Lorazepam Confirm 02/28/22 16:08 Lorazepam 2 Mg/1 Ml 2 Mg Vial Administered 02/28/22 16:09 Dose 2 mg .ROUTE .STK-MED ONE Methylprednisolone Sodium Succinate Confirm 02/28/22 15:44 Methylprednis Sod Succ 125 Mg/2 Ml Vial Administered 02/28/22 15:45 Dose 125 mg .ROUTE .STK-MED ONE Midazolam HCl Confirm 02/28/22 21:07 Midazolam Hcl 5 Mg/5 Ml Vial Administered 02/28/22 21:08 Dose 5 mg .ROUTE .STK-MED ONE Midazolam HCl 2 mg 02/28/22 21:08 02/28/22 21:10 Midazolam Hcl 2 Mg/2 Ml Vial IV 02/28/22 21:09 2 mg 1XONLY ONE Administration Midazolam HCl 2 mg 02/28/22 22:20 02/28/22 22:27 Midazolam Hcl 2 Mg/2 Ml Vial IV 02/28/22 22:21 2 mg 1XONLY ONE Administration Nitroglycerin 1 gm 02/28/22 15:41 02/28/22 16:09 Nitroglycerin 1 Gm Packet TOP 02/28/22 15:42 Not Given STAT ONE Nitroglycerin Confirm 02/28/22 15:44 Nitroglycerin 1 Gm Packet Administered 02/28/22 15:45 Dose 1 gm .ROUTE .Dep-Xplora-Newsreps ONE Sterile Water Confirm 02/28/22 15:43 Water For Injection,Sterile 10 Ml Vial Administered 02/28/22 15:44 Dose 10 ml IJ .STK-MED ONE Lab/Rad Data: Laboratory Result Diagrams 02/28/22 16:02 02/28/22 16:02 Laboratory Results 02/28/22 02/28/22 02/28/22 Range/Units 20:07 20:05 19:45 WBC (4.0-10.5) x10^3/uL RBC (4.1-5.6) x10^6/uL Hgb (12.5-18.0) g/dL Hct (42-50) % MCV (78-100) fL MCH (26-32) pg MCHC (32-36) g/dL RDW (11.5-14.0) % Plt Count (150-450) x10^3/uL MPV (7.5-11.0) fL Gran % (36.0-66.0) % Immature Gran % (Auto) (0.00-0.4) % Nucleat RBC Rel Count (0.00-0.1) % Eos # (Auto) (0-0.5) x10^3/uL Immature Gran # (Auto) (0.00-0.03) x10^3u/L Absolute Lymphs (auto) (1.0-4.6) x10^3/uL Absolute Monos (auto) (0.0-1.3) x10^3/uL Absolute Nucleated RBC (0.00-0.01) x10^3u/L Lymphocytes % (24.0-44.0) % Monocytes % (0.0-12.0) % Eosinophils % (0.00-5.0) % Basophils % (0.0-0.4) % Absolute Granulocytes (1.4-6.9) x10^3/uL Basophils # (0-0.4) x10^3/uL Puncture Site LEFT BRACHIAL pCO2 65 H* (35-45) mmHg pO2 412 H* (75-100) mmHg Base Excess 4.6 H (-2.0-2.0) O2 Saturation 95.7 (94-100) g/dF ABG pH 7.31 L (7.35-7.45) ABG HCO3 32.7 H* (22-28) ABG O2 Sat (Measured) 100.0 (95-100) % Clay Test NOT APPLICABLE A-a Gradient 220 a/A Ratio 0.65 Hemoglobin 12.4 Carboxyhemoglobin 3.5 (0.0-6.9) % THgb Methemoglobin 0.9 L (1.4-1.5) % Potassium 3.8 (3.5-5.1) Temperature 37.0 C POC O2 Flow Rate 100 % Vent Mode AC Vent Rate 16 /MIN Tidal Volume 550 cc PEEP 5 cmH2O Sodium (137-145) mmol/L Chloride (98-107) mmol/L Carbon Dioxide (22-30) mmol/L Anion Gap (5-15) MEQ/L BUN (9-20) mg/dL Creatinine (0.66-1.25) mg/dL Estimated GFR ML/MIN Glucose (74-106) mg/dL Lactic Acid (0.4-2.0) Calcium (8.4-10.2) mg/dL Magnesium (1.6-2.3) mg/dL Total Bilirubin (0.2-1.3) mg/dL AST (17-59) U/L ALT (0-50) U/L Alkaline Phosphatase (38-126) U/L Troponin I < 0.012 (0.000-0.034) ng/mL NT-Pro-B Natriuret Pep (0-900) pg/mL Serum Total Protein (6.3-8.2) g/dL Albumin (3.5-5.0) g/dL Procalcitonin (0.030-0.080) ng/mL Urinalys Dipstick Clnc MAIN LAB Urine Color YELLOW (YELLOW) Urine Appearance CLEAR (CLEAR) Urine pH 5.5 (5-6) Ur Specific [place] 1.010 (1.005-1.025) POC Urine Protein Conf NEGATIVE (Negative) Urine Ketones NEGATIVE (NEGATIVE) Urine Nitrite NEGATIVE (NEGATIVE) Urine Bilirubin NEGATIVE (NEGATIVE) Urine Urobilinogen 0.2 (0-1) mg/dL Urine Leukocytes TRACE A (NEGATIVE) Urine WBC (Auto) 0-2 (0-5) /HPF Urine RBC (Auto) 0-2 (0-2) /HPF U Hyaline Cast (Auto) 3-5 A (0-2) /LPF U Epithel Cells (Auto) NONE (FEW) /HPF Urine Bacteria (Auto) NONE (NEGATIVE) /HPF Urine RBC TRACE-INTACT A (0-5) [place]/ul Ur Culture Indicated? NO Urine Glucose NEGATIVE (NEGATIVE) mg/dL Influenza Type A Ag (NEGATIVE) Influenza Type B Ag (NEGATIVE) RSV (PCR) (Negative) SARS-CoV-2 (PCR) (NEGATIVE) 02/28/22 02/28/22 02/28/22 Range/Units 19:12 17:00 16:02 WBC (4.0-10.5) x10^3/uL RBC (4.1-5.6) x10^6/uL Hgb (12.5-18.0) g/dL Hct (42-50) % MCV (78-100) fL MCH (26-32) pg MCHC (32-36) g/dL RDW (11.5-14.0) % Plt Count (150-450) x10^3/uL MPV (7.5-11.0) fL Gran % (36.0-66.0) % Immature Gran % (Auto) (0.00-0.4) % Nucleat RBC Rel Count (0.00-0.1) % Eos # (Auto) (0-0.5) x10^3/uL Immature Gran # (Auto) (0.00-0.03) x10^3u/L Absolute Lymphs (auto) (1.0-4.6) x10^3/uL Absolute Monos (auto) (0.0-1.3) x10^3/uL Absolute Nucleated RBC (0.00-0.01) x10^3u/L Lymphocytes % (24.0-44.0) % Monocytes % (0.0-12.0) % Eosinophils % (0.00-5.0) % Basophils % (0.0-0.4) % Absolute Granulocytes (1.4-6.9) x10^3/uL Basophils # (0-0.4) x10^3/uL Puncture Site LEFT BRACHIAL pCO2 74 H* (35-45) mmHg pO2 45 L* (75-100) mmHg Base Excess 5.5 H (-2.0-2.0) O2 Saturation 65.6 L (94-100) g/dF ABG pH 7.28 L (7.35-7.45) ABG HCO3 34.8 H* (22-28) ABG O2 Sat (Measured) 68.7 L (95-100) % Clay Test NOT APPLICABLE A-a Gradient 576 a/A Ratio 0.07 Hemoglobin 13.5 Carboxyhemoglobin 4.1 (0.0-6.9) % THgb Methemoglobin 0.3 L (1.4-1.5) % Potassium 4.5 (3.5-5.1) Temperature 37.0 C POC O2 Flow Rate 100 % Vent Mode AC Vent Rate 16 /MIN Tidal Volume 550 cc PEEP 5 cmH2O Sodium (137-145) mmol/L Chloride (98-107) mmol/L Carbon Dioxide (22-30) mmol/L Anion Gap (5-15) MEQ/L BUN (9-20) mg/dL Creatinine (0.66-1.25) mg/dL Estimated GFR ML/MIN Glucose (74-106) mg/dL Lactic Acid 1.1 (0.4-2.0) Calcium (8.4-10.2) mg/dL Magnesium (1.6-2.3) mg/dL Total Bilirubin (0.2-1.3) mg/dL AST (17-59) U/L ALT (0-50) U/L Alkaline Phosphatase (38-126) U/L Troponin I (0.000-0.034) ng/mL NT-Pro-B Natriuret Pep (0-900) pg/mL Serum Total Protein (6.3-8.2) g/dL Albumin (3.5-5.0) g/dL Procalcitonin 0.063 (0.030-0.080) ng/mL Urinalys Dipstick Clnc Urine Color (YELLOW) Urine Appearance (CLEAR) Urine pH (5-6) Ur Specific [place] (1.005-1.025) POC Urine Protein Conf (Negative) Urine Ketones (NEGATIVE) Urine Nitrite (NEGATIVE) Urine Bilirubin (NEGATIVE) Urine Urobilinogen (0-1) mg/dL Urine Leukocytes (NEGATIVE) Urine WBC (Auto) (0-5) /HPF Urine RBC (Auto) (0-2) /HPF U Hyaline Cast (Auto) (0-2) /LPF U Epithel Cells (Auto) (FEW) /HPF Urine Bacteria (Auto) (NEGATIVE) /HPF Urine RBC (0-5) [place]/ul Ur Culture Indicated? Urine Glucose (NEGATIVE) mg/dL Influenza Type A Ag NEGATIVE (NEGATIVE) Influenza Type B Ag NEGATIVE (NEGATIVE) RSV (PCR) POSITIVE (Negative) SARS-CoV-2 (PCR) NEGATIVE (NEGATIVE) 02/28/22 02/28/22 02/28/22 Range/Units 16:02 16:02 16:02 WBC 10.4 (4.0-10.5) x10^3/uL RBC 4.43 (4.1-5.6) x10^6/uL Hgb 12.9 (12.5-18.0) g/dL Hct 40.6 L (42-50) % MCV 91.6 (78-100) fL MCH 29.1 (26-32) pg MCHC 31.8 L (32-36) g/dL RDW 15.1 H (11.5-14.0) % Plt Count 324 (150-450) x10^3/uL MPV 10.0 (7.5-11.0) fL Gran % 68.6 H (36.0-66.0) % Immature Gran % (Auto) 0.4 (0.00-0.4) % Nucleat RBC Rel Count 0.0 (0.00-0.1) % Eos # (Auto) 0.04 (0-0.5) x10^3/uL Immature Gran # (Auto) 0.04 H (0.00-0.03) x10^3u/L Absolute Lymphs (auto) 2.20 (1.0-4.6) x10^3/uL Absolute Monos (auto) 0.89 (0.0-1.3) x10^3/uL Absolute Nucleated RBC 0.00 (0.00-0.01) x10^3u/L Lymphocytes % 21.2 L (24.0-44.0) % Monocytes % 8.6 (0.0-12.0) % Eosinophils % 0.4 (0.00-5.0) % Basophils % 0.8 (0.0-0.4) % Absolute Granulocytes 7.11 H (1.4-6.9) x10^3/uL Basophils # 0.08 (0-0.4) x10^3/uL Puncture Site pCO2 (35-45) mmHg pO2 (75-100) mmHg Base Excess (-2.0-2.0) O2 Saturation (94-100) g/dF ABG pH (7.35-7.45) ABG HCO3 (22-28) ABG O2 Sat (Measured) (95-100) % Clay Test A-a Gradient a/A Ratio Hemoglobin Carboxyhemoglobin (0.0-6.9) % THgb Methemoglobin (1.4-1.5) % Potassium 4.4 (3.5-5.1) Temperature C POC O2 Flow Rate % Vent Mode Vent Rate /MIN Tidal Volume cc PEEP cmH2O Sodium 129 L (137-145) mmol/L Chloride 93 L (98-107) mmol/L Carbon Dioxide 31 H (22-30) mmol/L Anion Gap 8.9 (5-15) MEQ/L BUN 21 H (9-20) mg/dL Creatinine 0.77 (0.66-1.25) mg/dL Estimated GFR > 60.0 ML/MIN Glucose 110 H (74-106) mg/dL Lactic Acid (0.4-2.0) Calcium 8.2 L (8.4-10.2) mg/dL Magnesium 2.0 (1.6-2.3) mg/dL Total Bilirubin 1.00 (0.2-1.3) mg/dL AST 36 (17-59) U/L ALT 35 (0-50) U/L Alkaline Phosphatase 204 H (38-126) U/L Troponin I < 0.012 (0.000-0.034) ng/mL NT-Pro-B Natriuret Pep 9780 H (0-900) pg/mL Serum Total Protein 7.4 (6.3-8.2) g/dL Albumin 3.5 (3.5-5.0) g/dL Procalcitonin (0.030-0.080) ng/mL Urinalys Dipstick Clnc Urine Color (YELLOW) Urine Appearance (CLEAR) Urine pH (5-6) Ur Specific [place] (1.005-1.025) POC Urine Protein Conf (Negative) Urine Ketones (NEGATIVE) Urine Nitrite (NEGATIVE) Urine Bilirubin (NEGATIVE) Urine Urobilinogen (0-1) mg/dL Urine Leukocytes (NEGATIVE) Urine WBC (Auto) (0-5) /HPF Urine RBC (Auto) (0-2) /HPF U Hyaline Cast (Auto) (0-2) /LPF U Epithel Cells (Auto) (FEW) /HPF Urine Bacteria (Auto) (NEGATIVE) /HPF Urine RBC (0-5) [place]/ul Ur Culture Indicated? Urine Glucose (NEGATIVE) mg/dL Influenza Type A Ag (NEGATIVE) Influenza Type B Ag (NEGATIVE) RSV (PCR) (Negative) SARS-CoV-2 (PCR) (NEGATIVE) 02/28/22 Range/Units 15:45 WBC (4.0-10.5) x10^3/uL RBC (4.1-5.6) x10^6/uL Hgb (12.5-18.0) g/dL Hct (42-50) % MCV (78-100) fL MCH (26-32) pg MCHC (32-36) g/dL RDW (11.5-14.0) % Plt Count (150-450) x10^3/uL MPV (7.5-11.0) fL Gran % (36.0-66.0) % Immature Gran % (Auto) (0.00-0.4) % Nucleat RBC Rel Count (0.00-0.1) % Eos # (Auto) (0-0.5) x10^3/uL Immature Gran # (Auto) (0.00-0.03) x10^3u/L Absolute Lymphs (auto) (1.0-4.6) x10^3/uL Absolute Monos (auto) (0.0-1.3) x10^3/uL Absolute Nucleated RBC (0.00-0.01) x10^3u/L Lymphocytes % (24.0-44.0) % Monocytes % (0.0-12.0) % Eosinophils % (0.00-5.0) % Basophils % (0.0-0.4) % Absolute Granulocytes (1.4-6.9) x10^3/uL Basophils # (0-0.4) x10^3/uL Puncture Site LEFT RADIAL pCO2 51 H (35-45) mmHg pO2 244 H* (75-100) mmHg Base Excess 7.2 H (-2.0-2.0) O2 Saturation 93.9 L (94-100) g/dF ABG pH 7.42 (7.35-7.45) ABG HCO3 33.1 H* (22-28) ABG O2 Sat (Measured) 99.8 (95-100) % Clay Test YES A-a Gradient 405 a/A Ratio 0.38 Hemoglobin 13.6 Carboxyhemoglobin 5.0 (0.0-6.9) % THgb Methemoglobin 0.9 L (1.4-1.5) % Potassium 4.3 (3.5-5.1) Temperature 37.0 C POC O2 Flow Rate 100 % Vent Mode Vent Rate /MIN Tidal Volume cc PEEP cmH2O Sodium (137-145) mmol/L Chloride (98-107) mmol/L Carbon Dioxide (22-30) mmol/L Anion Gap (5-15) MEQ/L BUN (9-20) mg/dL Creatinine (0.66-1.25) mg/dL Estimated GFR ML/MIN Glucose (74-106) mg/dL Lactic Acid 0.8 (0.4-2.0) Calcium (8.4-10.2) mg/dL Magnesium (1.6-2.3) mg/dL Total Bilirubin (0.2-1.3) mg/dL AST (17-59) U/L ALT (0-50) U/L Alkaline Phosphatase (38-126) U/L Troponin I (0.000-0.034) ng/mL NT-Pro-B Natriuret Pep (0-900) pg/mL Serum Total Protein (6.3-8.2) g/dL Albumin (3.5-5.0) g/dL Procalcitonin (0.030-0.080) ng/mL Urinalys Dipstick Clnc Urine Color (YELLOW) Urine Appearance (CLEAR) Urine pH (5-6) Ur Specific [place] (1.005-1.025) POC Urine Protein Conf (Negative) Urine Ketones (NEGATIVE) Urine Nitrite (NEGATIVE) Urine Bilirubin (NEGATIVE) Urine Urobilinogen (0-1) mg/dL Urine Leukocytes (NEGATIVE) Urine WBC (Auto) (0-5) /HPF Urine RBC (Auto) (0-2) /HPF U Hyaline Cast (Auto) (0-2) /LPF U Epithel Cells (Auto) (FEW) /HPF Urine Bacteria (Auto) (NEGATIVE) /HPF Urine RBC (0-5) [place]/ul Ur Culture Indicated? Urine Glucose (NEGATIVE) mg/dL Influenza Type A Ag (NEGATIVE) Influenza Type B Ag (NEGATIVE) RSV (PCR) (Negative) SARS-CoV-2 (PCR) (NEGATIVE) <MNOIE DINH - Last Filed: 02/28/22 23:02> - Progress Progress: re-examined Air Movement: fair Blood Culture(s) Obtained: Yes Antibiotics given: Yes Counseled pt/family regarding: lab results, diagnosis, rad results, smoking cessation <TEDDY ANTHONY - Last Filed: 03/01/22 13:46> - Progress Progress Note: 02/28/22 23:02 I took over care for Dr. Anthony. Patient remained stable throughout my stay. O2 sats were good. See CT report in computer. Essentially, no pulmonary embolism, patient most likely does have a new pulmonary effusion and new consolidation in right lower lung. Patient already on broad-spectrum antibiotics. Patient eventually was acccepted to [facility] by Dr. Torres Yang. Patient continued to be stable. Plan for helicopter transfer given patient's critical status. (MONIE DINH) 02/28/22 18:53 71-year-old is evaluated for worsening shortness of breath. Patient was wheezi ng all over with bilateral lower extremity swelling. He is given DuoNeb along with Solu-Medrol and a dose of Lasix. Patient started to feel a little bit better but later on was having worsening shortness of breath. EKG showed atrial fibrillation with RVR with fluctuating rate between 80-1 50. Chest x-ray showed infiltrative process and given dose of antibiotics. Patient has a negative initial troponin. Normal lactate and procalcitonin. I believe patient has a combination of COPD exacerbation with CHF exacerbation. Later on patient work of breathing got worse and was not responding to nasal cannula/Venturi mask, was getting confused. Discussed with niece and patient and patient is promptly intubated. I will obtain CTA chest as patient has history of atrial fibrillation and not anticoagulated. He is on Cardiarnie boschip as well. At this point care is transferred to Dr. Dinh at shift change for reevaluation and final disposition. I have called [facility], no ICU beds available. [facility] currently does not have any ICU beds available as well. We will call surrounding hospitals and arrangements will be made for transfer to higher level of care. (TEDDY ANTHONY) - Departure Departure Disposition: Transfer <MONIE DINH - Last Filed: 02/28/22 23:02> - Departure Critical Care Time: Yes Critical Care Time(excluding separately billable procedures): Critical 30-74 mins <TEDDY ANTHONY - Last Filed: 03/01/22 13:46> - Departure Clinical Impression: COPD exacerbation, CHF exacerbation, Atrial fibrillation with RVR, Respiratory syncytial virus pneumonia, Respiratory failure Condition: Fair Referrals: TASIA CHRISTENSEN MD [Primary Care Provider] - Follow up/PCP as directed Instructions: Heart Failure, Chronic Obstructive Pulmonary Disease
[2022-02-28 16:46] LABS: ALBUMIN 3.5 g/dL (3.5-5.0); ALKALINE PHOSPHATASE 204 U/L (38-126); ANION GAP 8.9 MEQ/L (5-15); BLOOD UREA NITROGEN 21 mg/dL (9-20); CHLORIDE 93 mmol/L (98-107); Calcium 8.2 mg/dL (8.4-10.2); Carbon Dioxide 31 mmol/L (22-30); Creatinine 1 0.77 mg/dL (0.66-1.25); EST GLOMERULAR FILTRATION RATE > 60.0 ML/MIN; Glucose 110 mg/dL (74-106); NT PRO BNP 9780 pg/mL (0-900); Potassium 4.4 mmol/L (3.5-5.1); SGOT/AST 36 U/L (17-59); SGPT/ALT 35 U/L (0-50); SODIUM 129 mmol/L (137-145); Total Protein 7.4 g/dL (6.3-8.2)
[2022-02-28 17:33] LABS: INFLUENZA A NEGATIVE (NEGATIVE); INFLUENZA B NEGATIVE (NEGATIVE); SARS-CoV-2 Xpert Express NEGATIVE (NEGATIVE)
[2022-02-28 17:36] LABS: RESPIRATORY SYNCTIAL VIRUS POSITIVE (Negative)
[2022-02-28] MEDS ORDERED: Sodium Chloride 0.9% 1000 ML 1,000 ML ONE (18:28)
[2022-02-28] MEDS ORDERED: CARDIZEM DRIP 100 MG/100 ML D5W 100 ML IV ONE (18:39)
[2022-02-28] MEDS ORDERED: Propofol 1000 mg/100 ml Bottle 100 ML IV ONE (18:48)
[2022-02-28 19:17] LABS: A-aADO2 576; ABG HEMOGLOBIN 13.5; ABG POTASSIUM 4.5 (3.5-5.1); ARTERIAL BLD GAS O2 SATURATION 68.7 % (95-100); ARTERIAL BLOOD GAS BASE EXCESS 5.5 (-2.0-2.0); ARTERIAL BLOOD GAS FIO2 100 %; ARTERIAL BLOOD GAS pH 7.28 (7.35-7.45); CARBOXYHEMOGLOBIN 4.1 % THgb (0.0-6.9); HCO3- 34.8 (22-28); HGB O2 SAT 65.6 g/dF (94-100); Lactic Acid 1.1 (0.4-2.0); Methhemoglobin 0.3 % (1.4-1.5)
[2022-02-28 19:18] LABS: ARTERIAL BLD GAS TIDAL VOLUME 550 cc; ARTERIAL BLOOD GAS PCO2 74 mmHg (35-45); ARTERIAL BLOOD GAS PEEP 5 cmH2O; ARTERIAL BLOOD GAS PO2 45 mmHg (75-100); ARTERIAL BLOOD GAS VENT MODE AC; ARTERIAL BLOOD GAS VENT RATE 16 /MIN
[2022-02-28 19:19] LABS: ABG SITE LEFT BRACHIAL
--- NOTE | 2022-02-28 19:47 | XRAY ---
Indication: Intubation. Comparison: Taken earlier in the day. Portable chest demonstrates new endotracheal tube tip 6 cm above brian. Remaining chest unchanged again demonstrating right base consolidating infiltrate/atelectasis/effusion. Heart not enlarged. No new cardiopulmonary abnormalities.
[2022-02-28] MEDS ORDERED: Zithromax 500 MG/ 250 ML NaCl Premix 500 MG/250 ML IVPB IV ONE (20:00)
[2022-02-28 20:14] LABS: A-aADO2 220; ABG HEMOGLOBIN 12.4; ABG POTASSIUM 3.8 (3.5-5.1); ARTERIAL BLOOD GAS BASE EXCESS 4.6 (-2.0-2.0); ARTERIAL BLOOD GAS FIO2 100 %; ARTERIAL BLOOD GAS PCO2 65 mmHg (35-45); ARTERIAL BLOOD GAS PO2 412 mmHg (75-100); ARTERIAL BLOOD GAS pH 7.31 (7.35-7.45); CARBOXYHEMOGLOBIN 3.5 % THgb (0.0-6.9); HCO3- 32.7 (22-28); HGB O2 SAT 95.7 g/dF (94-100); Methhemoglobin 0.9 % (1.4-1.5)
[2022-02-28 20:15] LABS: ABG SITE LEFT BRACHIAL; ARTERIAL BLD GAS TIDAL VOLUME 550 cc; ARTERIAL BLOOD GAS PEEP 5 cmH2O; ARTERIAL BLOOD GAS VENT MODE AC; ARTERIAL BLOOD GAS VENT RATE 16 /MIN
--- NOTE | 2022-02-28 20:36 | XRAY ---
Indication: Short of breath. Pulmonary embolus. Multiple contiguous axial images obtained through the chest using 100 cc Isovue 370 contrast and using PE protocol. Comparison: May 07, 2021 Good opacification of the pulmonary arteries to including lobar and segmental branches. No pulmonary embolus. Heart not enlarged. Aorta mildly arteriosclerotic without aneurysm/dissection. No pathologic mediastinal/hilar lymphadenopathy. New endotracheal tube tip 5 cm above brian. Lungs demonstrates new right lower lobe consolidating/nonconsolidating airspace disease. Also new moderate right and mild left pleural effusions with mild compressive atelectasis. Bony thorax intact again with old left rib fractures. Limited upper abdomen unremarkable. Impression: 1. Continued negative pulmonary embolus. 2. New right lower lobe consolidating/nonconsolidating airspace disease and bilateral effusions right greater than left.
[2022-02-28] MEDS ORDERED: VERSED 5 MG/5 ML ONE (21:07)
[2022-02-28] MEDS ORDERED: Versed 2 MG/2 ML Injection IV ONE ×2 (21:08→22:20)
[2022-02-28 21:54] LABS: Appearance CLEAR (CLEAR); Bilirubin NEGATIVE (NEGATIVE); Dipstick done @ ? MAIN LAB; Glucose NEGATIVE (NEGATIVE); Ketones NEGATIVE (NEGATIVE); Nitrite NEGATIVE (NEGATIVE); Ph 5.5 (5-6); Protein,Urine Dip NEGATIVE (Negative); RBC TRACE-INTACT Ery/ul (0-5); Urobilinogen 0.2 mg/dL (0-1)
[2022-02-28 21:56] LABS: RBC 0-2 /HPF (0-2); WBC 0-2 /HPF (0-5)
[2022-02-28 22:09] LABS: Urine Cultured Indicated? NO
[2022-03-01 00:42] VITALS: BP 109/65; PULSE 101
[2022-03-01 13:45] VITALS: O2SAT 100
== END 2022-03-01 00:33 | disposition short-term general hospital (02) ==
LOC: ED 15:28
DX: J12.1 Respiratory syncytial virus pneumonia (principal); J96.91 Respiratory failure, unspecified with hypoxia; J44.1 Chronic obstructive pulmonary disease with (acute) exacerbation; I11.0 Hypertensive heart disease with heart failure; I50.9 Heart failure, unspecified; I48.20 Chronic atrial fibrillation, unspecified; R05.9 Cough, unspecified; E78.5 Hyperlipidemia, unspecified; Z72.0 Tobacco use; Z79.899 Other long term (current) drug therapy; Z28.310 Unvaccinated for COVID-19; Z20.828 Contact with and (suspected) exposure to other viral communicable diseases
CPT/HCPCS: 0241U; 31500; 36000; 36415; 36600; 51702; 71045; 71260; 80053; 81015; 82375; 82803; 83605; 83735; 83880; 84145; 84484; 85025; 87040; 93005; 93041; 94002; 94640; 96361; 96365; 96367; 96374; 96375; 96376; 99285; 99291; 96360; J0330; J0456; J1940; J2060; J2250; J2704; J2930; A9270-GY

== ENCOUNTER 2022-04-23 21:20 | Observation (INO) | payer MEDICARE ==
[2022-04-23] MEDS ORDERED: solu-MEDROL 125 MG, Sterile H2O 10 ml 2 ML IV ONE ×2 (21:31)
[2022-04-23] MEDS ORDERED: PROVENTIL 2.5 MG/3 ML NEB IH ONE ×4 (21:31→23:50)
[2022-04-23] MEDS ORDERED: ROCEPHIN 2 Gm-D5w 50ML BAG** 2 G/50 ML IVPB IV STA (21:36)
[2022-04-23] MEDS ORDERED: Zithromax 500 MG/ 250 ML NaCl Premix 500 MG/250 ML IVPB IV STA (21:36)
--- NOTE | 2022-04-23 21:36 | ERPHSYRPT ---
- History of Present Illness Time Seen by Provider: 04/23/22 21:30 Source: patient Exam Limitations: no limitations Physician History: P 71-year-old male presents to our ED for evaluation of shortness of breath. Patient has history of COPD. He is a current smoker. Symptoms have been progressive all day. Patient had a nebulizer treatment at home. Treatment was at approximately 2039. No significant improvement. Upon arrival to our ED patient was hypoxic, O2 sat 87%. Patient was wheezing. Mild respiratory distress. Symptoms are moderate in intensity. No specific worsening improving factors. No associated chest pain. No nausea vomiting or diaphoresis. Patient admits to history of the same. He voices no other complaints or concerns at this time. Portions of this note were created with voice recognition technology. There may be grammatical, spelling, punctuation or sound alike errors Timing/Duration: today Activities at Onset: none Severity of Dyspnea-Max: moderate Severity of Dyspnea-Current: mild Possible Cause: occasional episodes Modifying Factors: Improves With: nothing Associated Symptoms: wheezing Allergies/Adverse Reactions: Penicillins Allergy (Severe, Verified 12/29/21 16:45) Anaphylactic Reaction Home Medications: Aspirin EC 325 mg [Ecotrin 325 MG] 325 mg PO DAILY 02/18/19 [History] Lisinopril/Hydrochlorothiazide [Lisinopril-Hctz 20-12.5 mg Tab] 1 tab PO DAILY 05/08/21 [History] Albuterol Common Canister [Ventolin Common Canister] 1 puff IH Q4-6HPRN PRN 09/06/21 [History] Hx Tetanus, Diphtheria Vaccination/Date Given: Yes Hx Influenza Vaccination/Date Given: No Hx Pneumococcal Vaccination/Date Given: No Travel Risk - Vaccine Status Have you recieved a Covid-19 vaccination: No - Review of Systems Constitutional: No Symptoms, No Fever, No Chills Eyes: No Symptoms Ears, Nose, & Throat: No Symptoms Respiratory: No Symptoms, No Cough, No Dyspnea Cardiac: No Symptoms, No Chest Pain, No Edema, No Syncope Abdominal/Gastrointestinal: No Symptoms, No Abdominal Pain, No Nausea, No Vomiting, No Diarrhea Genitourinary Symptoms: No Symptoms, No Dysuria Musculoskeletal: No Symptoms, No Back Pain, No Neck Pain Skin: No Symptoms, No Rash Neurological: No Symptoms, No Dizziness, No Focal Weakness, No Sensory Changes Psychological: No Symptoms Endocrine: No Symptoms Hematologic/Lymphatic: No Symptoms Immunological/Allergic: No Symptoms All Other Systems: Reviewed and Negative - Past Medical History Pertinent Past Medical History: Yes Neurological History: Stroke ENT History: No Pertinent History Cardiac History: Congestive Heart Failure, Coronary Artery Disease, Hypertension Respiratory History: COPD Endocrine Medical History: No Pertinent History, Liver Disease Musculoskeletal History: No Pertinent History GI Medical History: Cirrhosis, Other History: No Pertinent History Psycho-Social History: No Pertinent History Male Reproductive Disorders: No Pertinent History Other Medical History: venous insufficiency - Past Surgical History Past Surgical History: Yes Neuro Surgical History: No Pertinent History Cardiac: Vascular Surgery Respiratory: No Pertinent History Gastrointestinal: No Pertinent History Genitourinary: No Pertinent History Musculoskeletal: No Pertinent History Male Surgical History: No Pertinent History Other Surgical History: stent to tono femoral artery, caroditectomy. Patient is a poor historian. History recalled from previous admission. - Social History Smoking Status: Current every day smoker How long have you smoked: years Exposure to second hand smoke: No Drug Use: none Patient Lives Alone: Yes Significant Family History: no pertinent family hx - Nursing Vital Signs Nursing Vital Signs: Initial Vital Signs Temperature 97.4 F 04/23/22 21:21 Pulse Rate 92 H 04/23/22 21:21 Respiratory Rate 22 04/23/22 21:21 Blood Pressure 158/101 04/23/22 21:21 O2 Sat by Pulse Oximetry 87 L 04/23/22 21:21 Pain Scale Pain Intensity 0 - Physical Exam General Appearance: no apparent distress, alert Eye Exam: PERRL/EOMI Neck Exam: normal inspection, supple Respiratory Exam: respiratory distress, airway intact, diminished breath sounds, rhonchi, wheezing Cardiovascular/Chest Exam: normal heart sounds, regular rate/rhythm Abdominal/Gastrointestinal Exam: soft, No tenderness, No distention, No mass Extremity Exam: non-tender, normal range of motion, normal inspection, no calf tenderness, no pedal edema Peripheral Pulses Exam: dorsalis-pedis (R): 2+, dorsalis-pedis (L): 2+ Neurologic Exam: alert, oriented x 3, cooperative, automotive 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 Chronic changes. Otherwise within normal limits) - CT Exams Chest CT Interpretation: Tele-radiologist Report (No PE observed. Spiculated opacity with architectural distortion and bronchiectasis. This was seen on 03/27/2021. Bronchial wall thickening is moderate with improved peribronchial and interstitial thickening. Persistent moderate right and small to moderate left pleural effusion. Cardiomegaly. ) Ordered Tests: Active Orders 24 hr Category Date Time Status Nurse Practitioner STAT Care 04/23/22 21:32 Active EKG-ER Only STAT Care 04/23/22 21:31 Active IV Insertion STAT Care 04/23/22 21:31 Active Pulse Oximetry (ED) STAT Care 04/23/22 21:31 Active CHEST 1 VIEW (PORTABLE) Stat Exams 04/23/22 21:32 Taken CHEST WITH CONTRAST [CT] Routine Exams 04/24/22 01:04 Taken BLOOD CULTURE Stat Lab 04/23/22 21:50 Received CBC W DIFF Stat Lab 04/23/22 21:45 Completed CMP Stat Lab 04/23/22 21:45 Completed D-DIMER QUANTITATIVE Stat Lab 04/23/22 22:55 Completed NT PRO BNP Stat Lab 04/23/22 21:45 Completed TROPONIN Q4H Lab 04/23/22 21:45 Completed TROPONIN Q4H Lab 04/24/22 02:20 Completed TROPONIN Q4H Lab 04/24/22 05:45 Ordered Respiratory Therapy Assessment DAILY RT 04/23/22 21:48 Active Medication Summary Discontinued Medications Generic Name Dose Route Start Last Admin Trade Name Freq PRN Reason Stop Dose Admin Albuterol Sulfate 2.5 mg 04/23/22 21:31 04/23/22 21:39 Albuterol Sulfate 2.5 Mg/3 Ml Neb IH 04/23/22 21:32 2.5 mg STAT ONE Administration Albuterol Sulfate Confirm 04/23/22 21:37 Albuterol Sulfate 2.5 Mg/3 Ml Neb Administered 04/23/22 21:38 Dose 2.5 mg IH .STK-MED ONE Albuterol Sulfate 2.5 mg 04/23/22 23:48 04/23/22 23:53 Albuterol Sulfate 2.5 Mg/3 Ml Neb IH 04/23/22 23:49 2.5 mg STAT ONE Administration Albuterol Sulfate Confirm 04/23/22 23:50 Albuterol Sulfate 2.5 Mg/3 Ml Neb Administered 04/23/22 23:51 Dose 2.5 mg IH .STK-MED ONE Methylprednisolone Sodium 0 mg 04/23/22 21:31 04/23/22 22:03 Succinate 125 mg/ Sterile IV 04/23/22 21:32 125 mg Water 2 ml STAT ONE Administration Furosemide 40 mg 04/24/22 00:43 04/24/22 00:47 Furosemide 40 Mg/4 Ml Vial IV 04/24/22 00:44 40 mg STAT ONE Administration Furosemide Confirm 04/24/22 00:45 Furosemide 40 Mg/4 Ml Vial Administered 04/24/22 00:46 Dose 40 mg .ROUTE .STK-MED ONE Ceftriaxone Sodium/Dextrose 2 g in 50 mls @ 100 mls/hr 04/23/22 21:36 04/23/22 22:03 Rocephin 2 Gm-D5w 50ml Bag IV 04/23/22 22:05 100 ml/hr STAT STA 100 mls/hr Administration Azithromycin 500 mg in 250 mls @ 250 mls/hr 04/23/22 21:36 04/23/22 23:04 Zithromax 500 Mg/ 250 Ml Nacl Premix IV 04/23/22 22:35 250 ml/hr STAT STA 250 mls/hr Administration Ceftriaxone Sodium/Dextrose Confirm 04/23/22 21:56 Rocephin 2 Gm-D5w 50ml Bag Administered 04/23/22 21:57 Dose 2 g in 50 mls @ ud IV .STK-MED ONE Azithromycin Confirm 04/23/22 23:02 Zithromax 500 Mg/ 250 Ml Nacl Premix Administered 04/23/22 23:03 Dose 500 mg in 250 mls @ ud IV .STK-MED ONE Methylprednisolone Sodium Succinate Confirm 04/23/22 21:56 Methylprednis Sod Succ 125 Mg/2 Ml Vial Administered 04/23/22 21:57 Dose 125 mg .ROUTE .STK-MED ONE Sterile Water Confirm 04/23/22 21:55 Water For Injection,Sterile 10 Ml Vial Administered 04/23/22 21:56 Dose 10 ml IJ .STK-MED ONE Lab/Rad Data: Laboratory Result Diagrams 04/23/22 21:45 04/23/22 21:45 Laboratory Results 04/24/22 04/23/22 04/23/22 Range/Units 02:20 22:55 21:45 WBC (4.0-10.5) x10^3/uL RBC (4.1-5.6) x10^6/uL Hgb (12.5-18.0) g/dL Hct (42-50) % MCV (78-100) fL MCH (26-32) pg MCHC (32-36) g/dL RDW (11.5-14.0) % Plt Count (150-450) x10^3/uL MPV (7.5-11.0) fL Gran % (36.0-66.0) % Immature Gran % (Auto) (0.00-0.4) % Nucleat RBC Rel Count (0.00-0.1) % Eos # (Auto) (0-0.5) x10^3/uL Immature Gran # (Auto) (0.00-0.03) x10^3u/L Absolute Lymphs (auto) (1.0-4.6) x10^3/uL Absolute Monos (auto) (0.0-1.3) x10^3/uL Absolute Nucleated RBC (0.00-0.01) x10^3u/L Lymphocytes % (24.0-44.0) % Monocytes % (0.0-12.0) % Eosinophils % (0.00-5.0) % Basophils % (0.0-0.4) % Absolute Granulocytes (1.4-6.9) x10^3/uL Basophils # (0-0.4) x10^3/uL D-Dimer 0.58 H (0.0-0.50) mg/L Sodium (137-145) mmol/L Potassium (3.5-5.1) mmol/L Chloride (98-107) mmol/L Carbon Dioxide (22-30) mmol/L Anion Gap (5-15) MEQ/L BUN (9-20) mg/dL Creatinine (0.66-1.25) mg/dL Estimated GFR ML/MIN Glucose (74-106) mg/dL Calcium (8.4-10.2) mg/dL Total Bilirubin (0.2-1.3) mg/dL AST (17-59) U/L ALT (0-50) U/L Alkaline Phosphatase (38-126) U/L Troponin I < 0.012 < 0.012 (0.000-0.034) ng/mL NT-Pro-B Natriuret Pep (0-900) pg/mL Serum Total Protein (6.3-8.2) g/dL Albumin (3.5-5.0) g/dL 04/23/22 04/23/22 Range/Units 21:45 21:45 WBC 9.4 (4.0-10.5) x10^3/uL RBC 3.82 L (4.1-5.6) x10^6/uL Hgb 10.7 L (12.5-18.0) g/dL Hct 33.3 L (42-50) % MCV 87.2 (78-100) fL MCH 28.0 (26-32) pg MCHC 32.1 (32-36) g/dL RDW 15.3 H (11.5-14.0) % Plt Count 265 (150-450) x10^3/uL MPV 9.5 (7.5-11.0) fL Gran % 66.5 H (36.0-66.0) % Immature Gran % (Auto) 0.5 H (0.00-0.4) % Nucleat RBC Rel Count 0.0 (0.00-0.1) % Eos # (Auto) 0.14 (0-0.5) x10^3/uL Immature Gran # (Auto) 0.05 H (0.00-0.03) x10^3u/L Absolute Lymphs (auto) 1.99 (1.0-4.6) x10^3/uL Absolute Monos (auto) 0.92 (0.0-1.3) x10^3/uL Absolute Nucleated RBC 0.00 (0.00-0.01) x10^3u/L Lymphocytes % 21.1 L (24.0-44.0) % Monocytes % 9.8 (0.0-12.0) % Eosinophils % 1.5 (0.00-5.0) % Basophils % 0.6 (0.0-0.4) % Absolute Granulocytes 6.26 (1.4-6.9) x10^3/uL Basophils # 0.06 (0-0.4) x10^3/uL D-Dimer (0.0-0.50) mg/L Sodium 129 L (137-145) mmol/L Potassium 3.4 L (3.5-5.1) mmol/L Chloride 93 L (98-107) mmol/L Carbon Dioxide 29 (22-30) mmol/L Anion Gap 10.7 (5-15) MEQ/L BUN 8 L (9-20) mg/dL Creatinine 0.72 (0.66-1.25) mg/dL Estimated GFR > 60.0 ML/MIN Glucose 149 H (74-106) mg/dL Calcium 8.6 (8.4-10.2) mg/dL Total Bilirubin 0.60 (0.2-1.3) mg/dL AST 36 (17-59) U/L ALT 37 (0-50) U/L Alkaline Phosphatase 131 H (38-126) U/L Troponin I (0.000-0.034) ng/mL NT-Pro-B Natriuret Pep 4560 H (0-900) pg/mL Serum Total Protein 8.0 (6.3-8.2) g/dL Albumin 4.3 (3.5-5.0) g/dL - Progress Progress: improved Air Movement: good Progress Note: Patient's a 71-year-old male presents to our emergency department with complaints of shortness of breath. Patient treated himself with a home nebulizer treatment with no significant improvement. Physical exam reveals wheezing, diminished breath sounds and rhonchi. Symptoms are acute. Complexity of complaint is moderate. Test orders include chest x-ray CTA chest, CBC, CMP, COVID, D-dimer, BNP, troponin, results of tests were used for medical decision making. Medication management include Lasix, ciprofloxacin, azithromycin, albuterol neb, Solu-Medrol, oxygen therapy. Case discussed with Dr. Perez who excepts admission to observation. Plan of care discussed with patient. He agrees to admission at [facility] for further evaluation and treatment. Level of EM service provided was moderate. Complexity of problem was moderate. Complexity of data reviewed and analyzed is moderate. Risk of complication and/or risk of morbidity/mortality of patient management was moderate. No critical care time Patient served as an independent historian. No need for medical equipment technician. Patient reassessed. Symptoms significantly improved. However not resolved. We will admit to telemetry. Admit orders entered. Patient voices no other complaints or concerns at this time. Portions of this note were created with voice recognition technology. There may be grammatical, spelling, punctuation or sound alike errors 04/24/22 04:29 04/24/22 04:31 Blood Culture(s) Obtained: Yes Antibiotics given: No Discussed with Dr.: Silva Will see patient in: hospital (observation) Counseled pt/family regarding: lab results, diagnosis, rad results - Departure Departure Disposition: Observation Clinical Impression: Normocytic anemia, Hyponatremia, Elevated brain natriuretic peptide (BNP) level, COPD exacerbation, Noncompliant with home medication regime, CHF (congestive heart failure), Spiculated lung opacity , Pleural effusion, Cardiomegaly, Coronary artery calcification, Mediastinal lymphadenopathy Condition: Stable Critical Care Time: No Referrals: TASIA CHRISTENSEN MD [Primary Care Provider] - Follow up/PCP as directed Instructions: Heart Failure, Chronic Obstructive Pulmonary Disease
[2022-04-23 21:55] LABS: Absolute Neutrophil Ct (ANC) 6.26 x10^3/uL (1.4-6.9); Basophil (Absolute #) 0.06 x10^3/uL (0-0.4); Eosinophil % 1.5 % (0.00-5.0); Eosinophil (Absolute #) 0.14 x10^3/uL (0-0.5); Hematocrit 33.3 % (42-50); Hemoglobin 10.7 g/dL (12.5-18.0); Lymphocyte (Absolute #) 1.99 x10^3/uL (1.0-4.6); Lymphocytes % 21.1 % (24.0-44.0); Mean Cell Volume 87.2 fL (78-100); Mean Corpuscular Hgb Concent. 32.1 g/dL (32-36); Mean Platelet Volume 9.5 fL (7.5-11.0); Monocyte (Absolute #) 0.92 x10^3/uL (0.0-1.3); Monocytes % 9.8 % (0.0-12.0); Neutrophil % 66.5 % (36.0-66.0); Platelet Count 265 x10^3/uL (150-450); Red Blood Count 3.82 x10^6/uL (4.1-5.6); Red Cell Distribution Width 15.3 % (11.5-14.0); White Blood Count 9.4 x10^3/uL (4.0-10.5)
[2022-04-23] MEDS ORDERED: Sterile H2O 10 ml IJ ONE (21:55)
[2022-04-23] MEDS ORDERED: solu-MEDROL ONE (21:56)
[2022-04-23] MEDS ORDERED: ROCEPHIN 2 Gm-D5w 50ML BAG** 2 G/50 ML IVPB IV ONE (21:56)
[2022-04-23 22:21] LABS: ALBUMIN 4.3 g/dL (3.5-5.0); ALKALINE PHOSPHATASE 131 U/L (38-126); ANION GAP 10.7 MEQ/L (5-15); BLOOD UREA NITROGEN 8 mg/dL (9-20); CHLORIDE 93 mmol/L (98-107); Calcium 8.6 mg/dL (8.4-10.2); Carbon Dioxide 29 mmol/L (22-30); Creatinine 1 0.72 mg/dL (0.66-1.25); EST GLOMERULAR FILTRATION RATE > 60.0 ML/MIN; Glucose 149 mg/dL (74-106); NT PRO BNP 4560 pg/mL (0-900); Potassium 3.4 mmol/L (3.5-5.1); SGOT/AST 36 U/L (17-59); SGPT/ALT 37 U/L (0-50); SODIUM 129 mmol/L (137-145)
[2022-04-23] MEDS ORDERED: Zithromax 500 MG/ 250 ML NaCl Premix 500 MG/250 ML IVPB IV ONE (23:02)
[2022-04-24] MEDS ORDERED: Lasix 40 MG/4 ML IV ONE (00:43)
[2022-04-24] MEDS ORDERED: Lasix 40 MG/4 ML ONE (00:45)
[2022-04-24] MEDS: VENTOLIN COMMON CANISTER IH SCH ×3 (05:50→15:22)
[2022-04-24] MEDS ORDERED: Sterile H2O 10 ml IJ ONE (06:53)
[2022-04-24] MEDS ORDERED: solu-MEDROL ONE (06:53)
[2022-04-24] MEDS ORDERED: PROVENTIL 2.5 MG/3 ML NEB IH SCH (07:00)
[2022-04-24] MEDS: solu-MEDROL 60 MG, Sterile H2O 10 ml 2 ML IV SCH ×8 (07:01→23:14)
[2022-04-24] MEDS ORDERED: VENTOLIN COMMON CANISTER IH PRN (08:10)
[2022-04-24] MEDS ORDERED: Docusate Sodium 100 MG PO PRN (08:10)
--- NOTE | 2022-04-24 08:44 | XRAY ---
Indication: Short of breath. Elevated d-dimer. Pulmonary embolus. Multiple contiguous axial images obtained through the chest using 100 cc Isovue 370 contrast and PE protocol. Comparison: February 28, 2022 Good opacification of the pulmonary arteries to include the lobar and segmental branches. Mild respiration artifact limits evaluation of the more distal lobar and segmental branches. No obvious pulmonary embolus. Heart is not enlarged. Aorta is again mildly atherosclerotic without aneurysm/dissection. No pathologic mediastinal/hilar lymphadenopathy. Lungs demonstrates patchy right lung airspace disease markedly improved. Stable moderate right and mild left effusions with compressive atelectasis. New inferior lingula subsegmental atelectasis. Stable right upper lobe subpleural fibrosis/scarring. Bony thorax intact again with old left rib fractures. Limited upper abdomen unremarkable. Impression: 1. Respiration artifact limits pulmonary embolus evaluation. Again no obvious pulmonary embolus. 2. Clearing of previous right lung airspace disease with mild residual. 3. Stable bilateral pleural effusions/atelectasis again right greater than left. Comment: Preliminary interpretation made by [facility]. No critical discrepancy.
--- NOTE | 2022-04-24 08:46 | XRAY ---
Indication: Short of breath. Comparison: February 28, 2022 Portable chest again demonstrates moderate right base infiltrate/atelectasis/effusion minimally improved. New tiny left effusion. Remaining heart and lungs unchanged again with minimal right upper lobe fibrosis/scarring. Bony thorax intact again with osteopenia and mild degenerative changes.
[2022-04-24] MEDS: ELIQUIS 2.5 MG TABLET PO SCH ×2 (08:48→20:57)
[2022-04-24] MEDS: THERAGRAN MULTIVITAMIN PO SCH (08:48)
[2022-04-24] MEDS: NORVASC 5 MG PO SCH (08:48)
[2022-04-24] MEDS: Cordarone 200 MG PO SCH (08:48)
[2022-04-24] MEDS: Lopressor 50 MG PO SCH (08:48)
[2022-04-24] MEDS ORDERED: NON-FORMULARY ITEM (Apixaban*** [Eliquis 5 Mg Tablet***] 5 MG Tablet) PO SCH (10:00)
[2022-04-24] MEDS ORDERED: NON-FORMULARY ITEM (Multivit-Min/Fa/Lycopen/Lutein [Centrum Silver Tablet] 1 EACH Tablet) PO SCH (10:00)
--- NOTE | 2022-04-24 10:00 | PCM.HP ---
History of Present Illness - Chief Complaint Chief Complaint: c/o shortness of breath for 2-3 days History of Present Illness: is a 71 year old male.presents to our ED for evaluation of shortness of breath. Patient has history of COPD. He is a current smoker. Symptoms have been progressive all day. Patient had a nebulizer treatment at home. Treatment was at approximately 2039. No significant improvement. Upon arrival to our ED patient was hypoxic, O2 sat 87%. Patient was wheezing. Mild respiratory distress. Symptoms are moderate in intensity. No specific worsening improving factors. No associated chest pain. No nausea vomiting or diaphoresis. Patient admits to history of the same. He voices no other complaints or concerns at this time. - Review of Systems Constitutional: No Fever, No Chills Eyes: No Symptoms Ears, Nose, & Throat: No Symptoms Respiratory: Cough, Short Of Breath Cardiac: Orthopnea, PND, No Chest Pain, No Edema, No Syncope Abdominal/Gastrointestinal: No Abdominal Pain, No Nausea, No Vomiting, No Diarrhea Genitourinary Symptoms: No Dysuria Musculoskeletal: No Back Pain, No Neck Pain Skin: No Rash Neurological: No Dizziness, No Focal Weakness, No Sensory Changes Psychological: No Symptoms Endocrine: No Symptoms Hematologic/Lymphatic: No Symptoms Immunological/Allergic: No Symptoms Medications & Allergies Home Medications: Home Medication List Albuterol Common Canister [Ventolin Common Canister] 1 puff IH Q4-6HPRN PRN 09/06/21 [History Confirmed 04/24/22] Amiodarone HCl 200 mg PO DAILY 04/24/22 [History Confirmed 04/24/22] Amlodipine Besylate 5 mg PO DAILY 04/24/22 [History Confirmed 04/24/22] Apixaban [Eliquis 5 mg Tablet] 5 mg PO BID 04/24/22 [History Confirmed 04/24/22] Docusate Sodium [Colace] 100 mg PO DAILY PRN 04/24/22 [History Confirmed 04/24/22] Metoprolol Tartrate 50 mg [Lopressor 50 MG] 50 mg PO DAILY 04/24/22 [History Confirmed 04/24/22] Multivit-Min/FA/Lycopen/Lutein [Centrum Silver Tablet] 1 each PO DAILY 04/24/22 [History Confirmed 04/24/22] Nicotine 21 mg [Nicoderm CQ 21 MG] 21 mg TD DAILY 30 Days #30 patch 04/24/22 [Rx] Allergies/Adverse Reactions: Allergies Allergy/AdvReac Type Severity Reaction Status Date / Time Penicillins Allergy Severe Anaphylactic Verified 12/29/21 16:45 Reaction - Past Medical History Past Medical History: Yes Neurological History: Stroke ENT History: No Pertinent History Cardiac History: Arrhythmia, Congestive Heart Failure, Coronary Artery Disease, Hypertension, Other Respiratory History: COPD Endocrine Medical History: No Pertinent History, Liver Disease Musculoskelatal History: No Pertinent History GI Medical History: Cirrhosis, Other History: No Pertinent History Pyscho-Social History: No Pertinent History Male Reproductive Disorders: No Pertinent History Comment: Atrial Fibrillation; Venous Insufficiency - Past Surgical History Past Surgical History: Yes Neuro Surgical History: No Pertinent History Cardiac History: Vascular Surgery Respiratory Surgery: No Pertinent History GI Surgical History: No Pertinent History Genitourinary Surgical Hx: No Pertinent History Musculskeletal Surgical Hx: No Pertinent History Male Surgical History: No Pertinent History Other Surgical History: stent to tono femoral artery, caroditectomy. Patient is a poor historian. History recalled from previous admission. - Social History Smoking Status: Current every day smoker How long have you smoked: years Exposure to second hand smoke: Yes Alcohol: Occasionally Drug Use: none Significant Family History: no pertinent family hx - Physical Exam Vital Signs: Vital Signs - 24 hr Temp Pulse Resp BP Pulse Ox 04/24/22 05:50 89 18 98 04/24/22 05:21 97.5 F 89 24 137/65 99 04/24/22 05:00 100 H 16 112/79 98 04/24/22 04:39 87 L 04/24/22 03:00 74 18 135/76 97 04/24/22 01:00 85 20 126/97 96 04/24/22 00:00 97 H 20 135/87 97 04/23/22 23:53 90 21 97 04/23/22 22:21 90 22 119/76 96 04/23/22 21:39 91 H 22 97 04/23/22 21:36 93 L 04/23/22 21:21 97.4 F 92 H 22 158/101 87 L General Appearance: no apparent distress, alert Neurologic Exam: alert, oriented x 3, cooperative, normal mood/affect, nml cereb ellar function, nml station & gait, sensation nml, No motor deficits Eye Exam: PERRL/EOMI, eyes nml inspection Ears, Nose, Throat Exam: normal ENT inspection, TMs normal, pharynx normal, moist mucous membranes Neck Exam: normal inspection, non-tender, supple, full range of motion Respiratory Exam: diminished breath sounds, accessory muscle use, crackles/rales, rhonchi, wheezing, No respiratory distress Cardiovascular Exam: regular rate/rhythm, normal heart sounds, normal peripheral pulses Gastrointestinal/Abdomen Exam: soft, normal bowel sounds, No tenderness, No mass Back Exam: normal inspection, normal range of motion, No CVA tenderness, No vertebral tenderness Extremity Exam: normal inspection, normal range of motion, pelvis stable Skin Exam: normal color, warm, dry, No rash Lymphatic Exam: No adenopathy Results - Labs Lab/Micro Results: Lab Results-Last 24 Hours 04/23/22 04/23/22 04/23/22 Range/Units 21:45 21:45 21:45 WBC 9.4 (4.0-10.5) x10^3/uL RBC 3.82 L (4.1-5.6) x10^6/uL Hgb 10.7 L (12.5-18.0) g/dL Hct 33.3 L (42-50) % MCV 87.2 (78-100) fL MCH 28.0 (26-32) pg MCHC 32.1 (32-36) g/dL RDW 15.3 H (11.5-14.0) % Plt Count 265 (150-450) x10^3/uL MPV 9.5 (7.5-11.0) fL Gran % 66.5 H (36.0-66.0) % Immature Gran % (Auto) 0.5 H (0.00-0.4) % Nucleat RBC Rel Count 0.0 (0.00-0.1) % Eos # (Auto) 0.14 (0-0.5) x10^3/uL Immature Gran # (Auto) 0.05 H (0.00-0.03) x10^3u/L Absolute Lymphs (auto) 1.99 (1.0-4.6) x10^3/uL Absolute Monos (auto) 0.92 (0.0-1.3) x10^3/uL Absolute Nucleated RBC 0.00 (0.00-0.01) x10^3u/L Lymphocytes % 21.1 L (24.0-44.0) % Monocytes % 9.8 (0.0-12.0) % Eosinophils % 1.5 (0.00-5.0) % Basophils % 0.6 (0.0-0.4) % Absolute Granulocytes 6.26 (1.4-6.9) x10^3/uL Basophils # 0.06 (0-0.4) x10^3/uL D-Dimer (0.0-0.50) mg/L Sodium 129 L (137-145) mmol/L Potassium 3.4 L (3.5-5.1) mmol/L Chloride 93 L (98-107) mmol/L Carbon Dioxide 29 (22-30) mmol/L Anion Gap 10.7 (5-15) MEQ/L BUN 8 L (9-20) mg/dL Creatinine 0.72 (0.66-1.25) mg/dL Estimated GFR > 60.0 ML/MIN Glucose 149 H (74-106) mg/dL Calcium 8.6 (8.4-10.2) mg/dL Total Bilirubin 0.60 (0.2-1.3) mg/dL AST 36 (17-59) U/L ALT 37 (0-50) U/L Alkaline Phosphatase 131 H (38-126) U/L Troponin I < 0.012 (0.000-0.034) ng/mL NT-Pro-B Natriuret Pep 4560 H (0-900) pg/mL Serum Total Protein 8.0 (6.3-8.2) g/dL Albumin 4.3 (3.5-5.0) g/dL 04/23/22 04/24/22 04/24/22 Range/Units 22:55 02:20 05:55 WBC (4.0-10.5) x10^3/uL RBC (4.1-5.6) x10^6/uL Hgb (12.5-18.0) g/dL Hct (42-50) % MCV (78-100) fL MCH (26-32) pg MCHC (32-36) g/dL RDW (11.5-14.0) % Plt Count (150-450) x10^3/uL MPV (7.5-11.0) fL Gran % (36.0-66.0) % Immature Gran % (Auto) (0.00-0.4) % Nucleat RBC Rel Count (0.00-0.1) % Eos # (Auto) (0-0.5) x10^3/uL Immature Gran # (Auto) (0.00-0.03) x10^3u/L Absolute Lymphs (auto) (1.0-4.6) x10^3/uL Absolute Monos (auto) (0.0-1.3) x10^3/uL Absolute Nucleated RBC (0.00-0.01) x10^3u/L Lymphocytes % (24.0-44.0) % Monocytes % (0.0-12.0) % Eosinophils % (0.00-5.0) % Basophils % (0.0-0.4) % Absolute Granulocytes (1.4-6.9) x10^3/uL Basophils # (0-0.4) x10^3/uL D-Dimer 0.58 H (0.0-0.50) mg/L Sodium (137-145) mmol/L Potassium (3.5-5.1) mmol/L Chloride (98-107) mmol/L Carbon Dioxide (22-30) mmol/L Anion Gap (5-15) MEQ/L BUN (9-20) mg/dL Creatinine (0.66-1.25) mg/dL Estimated GFR ML/MIN Glucose (74-106) mg/dL Calcium (8.4-10.2) mg/dL Total Bilirubin (0.2-1.3) mg/dL AST (17-59) U/L ALT (0-50) U/L Alkaline Phosphatase (38-126) U/L Troponin I < 0.012 < 0.012 (0.000-0.034) ng/mL NT-Pro-B Natriuret Pep (0-900) pg/mL Serum Total Protein (6.3-8.2) g/dL Albumin (3.5-5.0) g/dL - Radiology Impressions Radiology Exams & Impressions: Radiology Procedures Category Date Time Status CHEST 1 VIEW (PORTABLE) Stat Exams 04/23/22 21:32 Completed CHEST WITH CONTRAST [CT] Routine Exams 04/24/22 01:04 Completed - Other Procedures and Tests Respiratory Therapy 04/23/22 21:48 Respiratory Therapy Assessment DAILY 04/24/22 05:21 Oxygen NASAL CANNULA 2 lpm Assessment/Plan (1) COPD exacerbation Current Visit: Yes Status: Acute Assessment & Plan: Chief Complaint Diagnosis CHF, COPD exacerbation Allergies Allergy/AdvReac Type Severity Reaction Status Date / Time Penicillins Allergy Severe Anaphylactic Verified 12/29/21 16:45 Reaction Vital Signs (Last 24 hours) Temp Pulse Resp BP Pulse Ox 04/24/22 05:50 89 18 98 04/24/22 05:21 97.5 F 89 24 137/65 99 04/24/22 05:00 100 H 16 112/79 98 04/24/22 04:39 87 L 04/24/22 03:00 74 18 135/76 97 04/24/22 01:00 85 20 126/97 96 04/24/22 00:00 97 H 20 135/87 97 04/23/22 23:53 90 21 97 04/23/22 22:21 90 22 119/76 96 04/23/22 21:39 91 H 22 97 04/23/22 21:36 93 L 04/23/22 21:21 97.4 F 92 H 22 158/101 87 L Home Medications Medication Instructions Recorded Confirmed Last Taken Type Amiodarone HCl 200 mg PO DAILY 04/24/22 04/24/22 04/21/22 History Amlodipine Besylate 5 mg PO DAILY 04/24/22 04/24/22 04/21/22 History Apixaban [Eliquis 5 mg 5 mg PO BID 04/24/22 04/24/22 04/22/22 History Tablet] Docusate Sodium [Colace] 100 mg PO DAILY PRN 04/24/22 04/24/22 Unknown History Metoprolol Tartrate 50 mg 50 mg PO DAILY 04/24/22 04/24/22 04/22/22 History [Lopressor 50 MG] Multivit-Min/FA/Lycopen/Lutein 1 each PO DAILY 04/24/22 04/24/22 04/21/22 History [Centrum Silver Tablet] Current Medications Generic Name Dose Route Start Last Admin Trade Name Rika PRN Reason Stop Dose Admin Albuterol Sulfate 4 puff 04/24/22 07:00 04/24/22 05:50 Albuterol Common Canister Inhaler 05/24/22 06:59 4 puff Q4HRT VERNA Administration Albuterol Sulfate 1 puff 04/24/22 08:10 Albuterol Common Canister Inhaler IH 05/24/22 08:09 Q4HPRN PRN SHORTNESS OF BREATH/WHEEZING Amiodarone HCl 200 mg 04/24/22 10:00 04/24/22 08:48 Amiodarone Hcl 200 Mg Tab PO 05/24/22 09:59 200 mg DAILY VERNA Administration Amlodipine Besylate 5 mg 04/24/22 10:00 04/24/22 08:48 Amlodipine Besylate 5 Mg Tablet PO 05/24/22 09:59 5 mg DAILY VERNA Administration Apixaban 5 mg 04/24/22 10:00 04/24/22 08:48 Apixaban 2.5 Mg Tablet PO 05/24/22 09:59 5 mg BID VERNA Administration Methylprednisolone Sodium 0 mg 04/24/22 06:00 04/24/22 07:01 Succinate 60 mg/ Sterile Water IV 05/24/22 05:59 60 mg 2 ml Q6HT VERNA Administration Docusate Sodium 100 mg 04/24/22 08:10 Docusate Sodium 100 Mg Capsule PO 05/24/22 08:09 DAILY PRN PRN CONSTIPATION Metoprolol Tartrate 50 mg 04/24/22 10:00 04/24/22 08:48 Metoprolol Tartrate 50 Mg Tablet PO 05/24/22 09:59 50 mg DAILY VERNA Administration Multivitamins Therapeutic 1 tab 04/24/22 10:00 04/24/22 08:48 Multivitamins,Therapeutic 1 Tab Tab PO 05/24/22 09:59 1 tab DAILY VERNA Administration Discontinued Medications Generic Name Dose Route Start Last Admin Trade Name Rika PRN Reason Stop Dose Admin Albuterol Sulfate 2.5 mg 04/23/22 21:31 04/23/22 21:39 Albuterol Sulfate 2.5 Mg/3 Ml Neb IH 04/23/22 21:32 2.5 mg STAT ONE Administration Albuterol Sulfate Confirm 04/23/22 21:37 Albuterol Sulfate 2.5 Mg/3 Ml Neb Administered 04/23/22 21:38 Dose 2.5 mg IH .STK-MED ONE Albuterol Sulfate 2.5 mg 04/23/22 23:48 04/23/22 23:53 Albuterol Sulfate 2.5 Mg/3 Ml Neb IH 04/23/22 23:49 2.5 mg STAT ONE Administration Albuterol Sulfate Confirm 04/23/22 23:50 Albuterol Sulfate 2.5 Mg/3 Ml Neb Administered 04/23/22 23:51 Dose 2.5 mg IH .STK-MED ONE Albuterol Sulfate 2.5 mg 04/24/22 07:00 Albuterol Sulfate 2.5 Mg/3 Ml Neb 05/24/22 06:59 Q4HRT VERNA Methylprednisolone Sodium 0 mg 04/23/22 21:31 04/23/22 22:03 Succinate 125 mg/ Sterile IV 04/23/22 21:32 125 mg Water 2 ml STAT ONE Administration Furosemide 40 mg 04/24/22 00:43 04/24/22 00:47 Furosemide 40 Mg/4 Ml Vial IV 04/24/22 00:44 40 mg STAT ONE Administration Furosemide Confirm 04/24/22 00:45 Furosemide 40 Mg/4 Ml Vial Administered 04/24/22 00:46 Dose 40 mg .ROUTE .STK-MED ONE Ceftriaxone Sodium/Dextrose 2 g in 50 mls @ 100 mls/hr 04/23/22 21:36 04/23/22 22:03 Rocephin 2 Gm-D5w 50ml Bag IV 04/23/22 22:05 100 ml/hr STAT STA 100 mls/hr Administration Azithromycin 500 mg in 250 mls @ 250 mls/hr 04/23/22 21:36 04/23/22 23:04 Zithromax 500 Mg/ 250 Ml Nacl Premix IV 04/23/22 22:35 250 ml/hr STAT STA 250 mls/hr Administration Ceftriaxone Sodium/Dextrose Confirm 04/23/22 21:56 Rocephin 2 Gm-D5w 50ml Bag Administered 04/23/22 21:57 Dose 2 g in 50 mls @ ud IV .STK-MED ONE Azithromycin Confirm 04/23/22 23:02 Zithromax 500 Mg/ 250 Ml Nacl Premix Administered 04/23/22 23:03 Dose 500 mg in 250 mls @ ud IV .STK-MED ONE Methylprednisolone Sodium Succinate Confirm 04/23/22 21:56 Methylprednis Sod Succ 125 Mg/2 Ml Vial Administered 04/23/22 21:57 Dose 125 mg .ROUTE .STK-MED ONE Methylprednisolone Sodium Succinate Confirm 04/24/22 06:53 Methylprednis Sod Succ 125 Mg/2 Ml Vial Administered 04/24/22 06:54 Dose 125 mg .ROUTE .STK-MED ONE Sterile Water Confirm 04/23/22 21:55 Water For Injection,Sterile 10 Ml Vial Administered 04/23/22 21:56 Dose 10 ml IJ .STK-MED ONE Sterile Water Confirm 04/24/22 06:53 Water For Injection,Sterile 10 Ml Vial Administered 04/24/22 06:54 Dose 10 ml IJ .STK-MED ONE Intake & Output (Last 24 hours) 04/21/22 04/22/22 04/23/22 04/24/22 11:59 11:59 11:59 11:59 Intake Total 240 Balance 240 Weight 74.3 kg Microbiology Results (Last 24 hours) 04/23/22 21:50 Blood Blood Culture Gram Stain - Pending 04/23/22 21:50 Blood Blood Culture - Pending 04/23/22 21:45 Blood Blood Culture Gram Stain - Pending 04/23/22 21:45 Blood Blood Culture - Pending Laboratory Results (Last 24 hours) 04/24/22 04/24/22 04/23/22 05:55 02:20 22:55 WBC RBC Hgb Hct MCV MCH MCHC RDW Plt Count MPV Gran % Immature Gran % (Auto) Nucleat RBC Rel Count Eos # (Auto) Immature Gran # (Auto) Absolute Lymphs (auto) Absolute Monos (auto) Absolute Nucleated RBC Lymphocytes % Monocytes % Eosinophils % Basophils % Absolute Granulocytes Basophils # D-Dimer 0.58 H Sodium Potassium Chloride Carbon Dioxide Anion Gap BUN Creatinine Estimated GFR Glucose Calcium Total Bilirubin AST ALT Alkaline Phosphatase Troponin I < 0.012 < 0.012 NT-Pro-B Natriuret Pep Serum Total Protein Albumin 04/23/22 04/23/22 04/23/22 21:45 21:45 21:45 WBC 9.4 RBC 3.82 L Hgb 10.7 L Hct 33.3 L MCV 87.2 MCH 28.0 MCHC 32.1 RDW 15.3 H Plt Count 265 MPV 9.5 Gran % 66.5 H Immature Gran % (Auto) 0.5 H Nucleat RBC Rel Count 0.0 Eos # (Auto) 0.14 Immature Gran # (Auto) 0.05 H Absolute Lymphs (auto) 1.99 Absolute Monos (auto) 0.92 Absolute Nucleated RBC 0.00 Lymphocytes % 21.1 L Monocytes % 9.8 Eosinophils % 1.5 Basophils % 0.6 Absolute Granulocytes 6.26 Basophils # 0.06 D-Dimer Sodium 129 L Potassium 3.4 L Chloride 93 L Carbon Dioxide 29 Anion Gap 10.7 BUN 8 L Creatinine 0.72 Estimated GFR > 60.0 Glucose 149 H Calcium 8.6 Total Bilirubin 0.60 AST 36 ALT 37 Alkaline Phosphatase 131 H Troponin I < 0.012 NT-Pro-B Natriuret Pep 4560 H Serum Total Protein 8.0 Albumin 4.3 Orders (Last 24 hours) Category Date Time Status Bedrest ROUTINE Activity 04/24/22 05:21 Active Enlisted Advisor STAT Care 04/23/22 21:32 Completed Code Status Order ROUTINE Care 04/24/22 05:21 Active EKG-ER Only STAT Care 04/23/22 21:31 Completed IV Care Q6H Care 04/24/22 05:21 Active IV Insertion STAT Care 04/23/22 21:31 Completed Implement CHF Pathway ROUTINE Care 04/24/22 05:21 Active Isolation, Initiate & Maintain Q6H Care 04/24/22 05:[address] in Observation ROUTINE Care 04/24/22 05:21 Active Pulse Oximetry (ED) STAT Care 04/23/22 21:31 Completed Danni Mcclelland ROUTINE Care 04/24/22 05:21 Active Telemetry q6h Care 04/24/22 05:21 Active Weight,Daily 0600 Care 04/24/22 05:21 Active Clothing Busheler/Discharge Plan ROUTINE Cons 04/24/22 10:00 Active Consistent Carbohydrate Diet 1800 Calorie Diet 04/24/22 Breakfast Active CHEST 1 VIEW (PORTABLE) Stat Exams 04/23/22 21:32 Completed CHEST WITH CONTRAST [CT] Routine Exams 04/24/22 01:04 Completed BLOOD CULTURE Stat Lab 04/23/22 21:50 Received BMP AM.LAB Lab 04/25/22 04:00 Ordered CBC AM.LAB Lab 04/25/22 04:00 Ordered CBC W DIFF Stat Lab 04/23/22 21:45 Completed CMP Stat Lab 04/23/22 21:45 Completed D-DIMER QUANTITATIVE Stat Lab 04/23/22 22:55 Completed NT PRO BNP AM.LAB Lab 04/25/22 04:00 Ordered NT PRO BNP Stat Lab 04/23/22 21:45 Completed TROPONIN Q4H Lab 04/23/22 21:45 Completed TROPONIN Q4H Lab 04/24/22 02:20 Completed TROPONIN Q4H Lab 04/24/22 05:55 Completed Albuterol 2.5 mg/3 ml Neb [Proventil 2.5 mg/3 ml Neb Med 04/23/22 21:37 Discontinued ] 2.5 mg IH .STK-MED ONE Albuterol 2.5 mg/3 ml Neb [Proventil 2.5 mg/3 ml Neb Med 04/23/22 23:50 Discontinued ] 2.5 mg IH .STK-MED ONE Albuterol 2.5 mg/3 ml Neb [Proventil 2.5 mg/3 ml Neb Med 04/24/22 07:00 Discontinued ] 2.5 mg IH Q4HRT Albuterol 2.5 mg/3 ml Neb [Proventil 2.5 mg/3 ml Neb Med 04/23/22 21:31 Discontinued ] 2.5 mg IH STAT ONE Albuterol 2.5 mg/3 ml Neb [Proventil 2.5 mg/3 ml Neb Med 04/23/22 23:48 Discontinued ] 2.5 mg IH STAT ONE Albuterol Common Canister [Ventolin Common Canister* Med 04/24/22 08:10 Active ] 1 puff IH Q4HPRN PRN Albuterol Common Canister [Ventolin Common Canister* Med 04/24/22 07:00 Active ] 4 puff IH Q4HRT Amiodarone HCl 200 mg [Cordarone 200 MG] Med 04/24/22 10:00 Active 200 mg PO DAILY Amlodipine Besylate 5 mg [Norvasc 5 mg] Med 04/24/22 10:00 Active 5 mg PO DAILY Apixaban [Eliquis 2.5 mg Tablet] Med 04/24/22 10:00 Active 5 mg PO BID Azithromycin 500 mg/250 ml [Zithromax 500 MG/ 250 ML Med 04/23/22 21:36 Discontinued NaCl Premix] 500 mg in 250 ml IV STAT Azithromycin 500 mg/250 ml [Zithromax 500 MG/ 250 ML Med 04/23/22 23:02 Discontinued NaCl Premix] 500 mg in 250 ml IV UD Ceftriaxone 2 GM/50 ML PREMIX* [ROCEPHIN 2 Gm-D5w 50ML Med 04/23/22 21:36 Discontinued BAG] 2 g in 50 ml IV STAT Ceftriaxone 2 GM/50 ML PREMIX* [ROCEPHIN 2 Gm-D5w 50ML Med 04/23/22 21:56 Discontinued BAG] 2 g in 50 ml IV UD Docusate Sodium 100 mg [Docusate Sodium 100 MG] Med 04/24/22 08:10 Active 100 mg PO DAILY PRN PRN Furosemide 40 mg/4 ml [Lasix 40 MG/4 ML] Med 04/24/22 00:45 Discontinued 40 mg .ROUTE .STK-MED ONE Furosemide 40 mg/4 ml [Lasix 40 MG/4 ML] Med 04/24/22 00:43 Discontinued 40 mg IV STAT ONE Methylprednis Sod Succ 125 mg* [solu-MEDROL] Med 04/23/22 21:56 Discontinued 125 mg .ROUTE .STK-MED ONE Methylprednis Sod Succ 125 mg* [solu-MEDROL] Med 04/24/22 06:53 Discontinued 125 mg .ROUTE .STK-MED ONE Methylprednis Sod Succ 125 mg* [solu-MEDROL] 125 mg Med 04/23/22 21:31 Discontinued Water For Injection,Sterile [Sterile H2O 10 ml] 2 ml IV STAT Methylprednis Sod Succ 125 mg* [solu-MEDROL] 60 mg Med 04/24/22 06:00 Active Water For Injection,Sterile [Sterile H2O 10 ml] 2 ml IV Q6HT Metoprolol Tartrate 50 mg [Lopressor 50 MG] Med 04/24/22 10:00 Active 50 mg PO DAILY Multivitamins,Therapeutic Tab* [Theragran Multivitamin* Med 04/24/22 10:00 Active ] 1 tab PO DAILY Water For Injection,Sterile [Sterile H2O 10 ml] Med 04/23/22 21:55 Discontinued 10 ml IJ .STK-MED ONE Water For Injection,Sterile [Sterile H2O 10 ml] Med 04/24/22 06:53 Discontinued 10 ml IJ .STK-MED ONE Oxygen NASAL CANNULA 2 lpm RT 04/24/22 05:21 Active Pulse Oximetry CONTINUOUS RT 04/24/22 05:21 Active RT Screen per Nursing Assess ONCE RT 04/24/22 08:00 Completed Respiratory Therapy Assessment DAILY RT 04/23/22 21:48 Active Smoking Cessation Education ONCE RT 04/24/22 08:00 Completed Transfer Order Routine Transfer 04/24/22 Completed Patient Care Notes (Last 24 hours) 04/24/22 05:44 Nursing Note by Batsheva Nettles Pt refused to be covid tested so placed in airborne isolation per policy. Initialized on 04/24/22 05:44 - END OF NOTE Code(s): J44.1 - CHRONIC OBSTRUCTIVE PULMONARY DISEASE W (ACUTE) EXACERBATION (2) CHF (congestive heart failure) Current Visit: Yes Status: Acute Qualifiers: Heart failure type: combined systolic and diastolic Heart failure chronicity: acute on chronic Qualified Code(s): I50.43 - Acute on chronic combined systolic (congestive) and diastolic (congestive) heart failure Code(s): I50.9 - HEART FAILURE, UNSPECIFIED (3) CHF exacerbation Current Visit: Yes Status: Acute Qualifiers: Heart failure type: combined systolic and diastolic Qualified Code(s): I50.43 - Acute on chronic combined systolic (congestive) and diastolic (congestive) heart failure Code(s): I50.9 - HEART FAILURE, UNSPECIFIED
[2022-04-24 11:26] LABS: INFLUENZA A NEGATIVE (NEGATIVE); INFLUENZA B NEGATIVE (NEGATIVE); RESPIRATORY SYNCTIAL VIRUS NEGATIVE (Negative); SARS-CoV-2 Xpert Express NEGATIVE (NEGATIVE)
[2022-04-24] MEDS: PROVENTIL 2.5 MG/3 ML NEB IH SCH (18:38)
[2022-04-25] MEDS: solu-MEDROL 60 MG, Sterile H2O 10 ml 2 ML IV SCH ×2 (05:37)
[2022-04-25 05:49] LABS: Hematocrit 30.9 % (42-50); Hemoglobin 9.7 g/dL (12.5-18.0); Mean Cell Volume 87.5 fL (78-100); Mean Corpuscular Hemoglobin 27.5 pg (26-32); Mean Corpuscular Hgb Concent. 31.4 g/dL (32-36); Mean Platelet Volume 9.8 fL (7.5-11.0); Platelet Count 278 x10^3/uL (150-450); Red Blood Count 3.53 x10^6/uL (4.1-5.6); Red Cell Distribution Width 15.5 % (11.5-14.0); White Blood Count 11.5 x10^3/uL (4.0-10.5)
[2022-04-25 06:37] LABS: BLOOD UREA NITROGEN 21 mg/dL (9-20); CHLORIDE 91 mmol/L (98-107); Calcium 8.6 mg/dL (8.4-10.2); Carbon Dioxide 30 mmol/L (22-30); Creatinine 1 0.89 mg/dL (0.66-1.25); EST GLOMERULAR FILTRATION RATE > 60.0 ML/MIN; Glucose 248 mg/dL (74-106); NT PRO BNP 4500 pg/mL (0-900); Potassium 3.8 mmol/L (3.5-5.1); SODIUM 130 mmol/L (137-145)
[2022-04-25] MEDS: PROVENTIL 2.5 MG/3 ML NEB IH SCH (06:41)
[2022-04-25 06:47] VITALS: O2SAT 93
[2022-04-25 07:30] VITALS: BP 120/86; PULSE 110
[2022-04-25] MEDS: Lopressor 50 MG PO SCH (08:24)
[2022-04-25] MEDS: THERAGRAN MULTIVITAMIN PO SCH (08:24)
[2022-04-25] MEDS: ELIQUIS 2.5 MG TABLET PO SCH (08:24)
[2022-04-25] MEDS: Cordarone 200 MG PO SCH (08:25)
[2022-04-25] MEDS: NORVASC 5 MG PO SCH (08:25)
== END 2022-04-25 11:56 | disposition home health service (06) ==
LOC: ED 21:20 → MED SURG 04-24 05:20
PROVIDERS: ADMIT Family Medicine; ATTEND General Practice
DX: J44.1 Chronic obstructive pulmonary disease with (acute) exacerbation (principal); I50.9 Heart failure, unspecified; I25.10 Atherosclerotic heart disease of native coronary artery without angina pectoris; Z79.899 Other long term (current) drug therapy; Z20.828 Contact with and (suspected) exposure to other viral communicable diseases; Z72.0 Tobacco use; Z79.01 Long term (current) use of anticoagulants
CPT/HCPCS: 0241U; 36000; 36415; 71045; 71260; 80048; 80053; 83880; 84145; 84484; 85025; 85027; 85379; 87040; 93005; 93041; 93268; 94640; 94760; 94762; 96365; 96367; 96374; 96375; 99285; J0456; J0696; J1940; J2930; J7609; A9270-GY; G0378

== ENCOUNTER 2022-04-27 18:28 | Inpatient (IN) | payer MEDICARE ==
[2022-04-27] MEDS ORDERED: PROVENTIL 2.5 MG/3 ML NEB IH ONE ×2 (18:30→18:35)
[2022-04-27 18:34] LABS: A-aADO2 428; ABG HEMOGLOBIN 11.1; ABG POTASSIUM 4.4 (3.5-5.1); ARTERIAL BLD GAS O2 SATURATION 99.1 % (95-100); ARTERIAL BLOOD GAS BASE EXCESS 1.2 (-2.0-2.0); ARTERIAL BLOOD GAS FIO2 85 %; ARTERIAL BLOOD GAS PO2 101 mmHg (75-100); ARTERIAL BLOOD GAS pH 7.28 (7.35-7.45); HCO3- 29.1 (22-28); HGB O2 SAT 95.5 g/dF (94-100); Methhemoglobin 0.6 % (1.4-1.5); paO2 pAO1 0.19
[2022-04-27 18:35] LABS: ABG SITE LEFT RADIAL; ALLEN TEST OK? YES; ARTERIAL BLOOD GAS PCO2 62 mmHg (35-45)
[2022-04-27] MEDS ORDERED: Ativan 2 MG/1 ML VIAL IV ONE ×3 (18:37→22:09)
[2022-04-27] MEDS ORDERED: Lasix 40 MG/4 ML IV ONE (18:38)
[2022-04-27] MEDS ORDERED: Ativan 2 MG/1 ML VIAL ONE ×3 (18:41→22:11)
[2022-04-27] MEDS ORDERED: Lasix 40 MG/4 ML ONE (18:42)
--- NOTE | 2022-04-27 18:53 | ERPHSYRPT ---
- History of Present Illness Time Seen by Provider: 04/27/22 18:35 Source: patient, EMS Exam Limitations: clinical condition Physician History: This is a 71-year-old white male patient of Dr. Christensen who was recently admitted and discharged from this hospital (04/23 to 04/24/2022 respectively) for shortness of air. He was diagnosed with CHF and COPD exacerbation. According to the chart which I reviewed from his recent hospitalization and discharge, patient was given prescriptions for the patient to fill as an outpatient. He did not fill those prescriptions. Over the last few days his symptoms have worsened. Patient continues to smoke cigarettes. Patient is a poor historian and it was necessary for me to review old charts. Patient has a history of COPD, hypertension, CHF, cirrhosis and peripheral vascular disease. Patient had a CTA of the chest done on 04/24/2022 which is negative for pulmonary embolus but showed pleural effusions, cardiomegaly. Patient has chronic anemia and chronic hyponatremia. He has no complaints of chest pain at this time. Patient's oxygen saturation on 12 L Oxymizer is 99%. I obtained additional information from EMS/paramedics Activities at Onset: activity Severity of Dyspnea-Max: moderate Severity of Dyspnea-Current: moderate Possible Cause: frequent episodes, chronic episodes Modifying Factors: Improves With: activity, oxygen (Improves) Associated Symptoms: anxiety Allergies/Adverse Reactions: Penicillins Allergy (Severe, Verified 04/27/22 19:07) Anaphylactic Reaction Home Medications: Albuterol Common Canister [Ventolin Common Canister] 1 puff IH Q4-6HPRN PRN 09/06/21 [History] Hx Tetanus, Diphtheria Vaccination/Date Given: Yes Hx Influenza Vaccination/Date Given: No Hx Pneumococcal Vaccination/Date Given: No Travel Risk - International Travel Have you traveled outside of the country in past 3 weeks: No - Coronavirus Screening Are you exhibiting any of the following symptoms?: Yes Symptoms: Fever, Shortness of Breath Close contact with a COVID-19 positive Pt in past 14-21 Days: No - Vaccine Status Have you recieved a Covid-19 vaccination: No - Review of Systems Constitutional: No Symptoms Eyes: No Symptoms Ears, Nose, & Throat: No Symptoms Respiratory: Dyspnea Cardiac: No Symptoms Abdominal/Gastrointestinal: No Symptoms Genitourinary Symptoms: No Symptoms Musculoskeletal: No Symptoms Skin: No Symptoms Neurological: No Symptoms Psychological: No Symptoms Endocrine: No Symptoms Hematologic/Lymphatic: No Symptoms Immunological/Allergic: No Symptoms All Other Systems: Reviewed and Negative - Past Medical History Pertinent Past Medical History: Yes Neurological History: Stroke ENT History: No Pertinent History Cardiac History: Arrhythmia, Congestive Heart Failure, Coronary Artery Disease, Hypertension, Other Respiratory History: COPD Endocrine Medical History: No Pertinent History, Liver Disease Musculoskeletal History: No Pertinent History GI Medical History: Cirrhosis, Other History: No Pertinent History Psycho-Social History: No Pertinent History Male Reproductive Disorders: No Pertinent History Other Medical History: Atrial Fibrillation; Venous Insufficiency - Past Surgical History Past Surgical History: Yes Neuro Surgical History: No Pertinent History Cardiac: Vascular Surgery Respiratory: No Pertinent History Gastrointestinal: No Pertinent History Genitourinary: No Pertinent History Musculoskeletal: No Pertinent History Male Surgical History: No Pertinent History Other Surgical History: stent to tono femoral artery, caroditectomy. Patient is a poor historian. History recalled from previous admission. - Social History Smoking Status: Current every day smoker How long have you smoked: years Exposure to second hand smoke: Yes Drug Use: none Patient Lives Alone: Yes Significant Family History: no pertinent family hx - Nursing Vital Signs Nursing Vital Signs: Initial Vital Signs Temperature 96.4 F 04/27/22 18:30 Pulse Rate 114 H 04/27/22 18:30 Blood Pressure 176/144 04/27/22 18:30 O2 Sat by Pulse Oximetry 97 04/27/22 18:30 Pain Scale Pain Intensity 0 - Physical Exam General Appearance: mild distress, alert, anxiety, thin (Moderate) Eye Exam: PERRL/EOMI, eyes nml inspection Ears, Nose, Throat Exam: hearing grossly normal, normal ENT inspection, normal pharynx Neck Exam: normal inspection, non-tender, supple, full range of motion Respiratory Exam: normal breath sounds, respiratory distress (Moderate), airway intact, rhonchi Cardiovascular/Chest Exam: normal peripheral pulses Abdominal/Gastrointestinal Exam: soft, normal bowel sounds, No tenderness Rectal Exam: not done Extremity Exam: non-tender, normal range of motion, normal inspection, normal capillary refill, no calf tenderness, pelvis stable, swelling, No adali's sign Neurologic Exam: alert, oriented x 3, cooperative, public relations account executive II-XII nml as tested, other Skin Exam: normal color (Chest), warm, dry Lymphatic Exam: No adenopathy SpO2 Interpretation: hypoxic O2 Delivery: Nasal Cannula - Course Nursing assessment & vital signs reviewed: Yes EKG Interpreted by Me: RATE (108), A-fib, NORMAL INTERVALS, NORMAL ST-T, Other Ordered Tests: Active Orders 24 hr Category Date Time Status Grounds Foreman STAT Care 04/27/22 18:38 Active EKG-ER Only STAT Care 04/27/22 18:37 Active Myles [Catheter-[place] Myles] STAT Care 04/27/22 19:30 Active IV Insertion STAT Care 04/27/22 18:37 Active Pulse Oximetry (ED) STAT Care 04/27/22 18:37 Active CHEST 1 VIEW (PORTABLE) Stat Exams 04/27/22 18:37 Taken ABG [ARTERIAL BLOOD GASES] Routine Lab 04/27/22 20:30 Completed ABG [ARTERIAL BLOOD GASES] Stat Lab 04/27/22 18:33 Completed CBC W DIFF Stat Lab 04/27/22 19:15 Completed CMP Stat Lab 04/27/22 19:15 Completed Lactic Acid Stat Lab 04/27/22 18:33 Completed MAGNESIUM Stat Lab 04/27/22 19:15 Completed NT PRO BNP Stat Lab 04/27/22 19:15 Completed TROPONIN Q4H Lab 04/27/22 19:15 Completed TROPONIN Q4H Lab 04/27/22 22:45 Ordered TROPONIN Q4H Lab 04/28/22 02:45 Ordered Respiratory Therapy Assessment DAILY RT 04/27/22 20:54 Active Transfer Order Routine Transfer 04/27/22 Ordered Medication Summary Discontinued Medications Generic Name Dose Route Start Last Admin Trade Name Freq PRN Reason Stop Dose Admin Albuterol Sulfate Confirm 04/27/22 18:30 Albuterol Sulfate 2.5 Mg/3 Ml Neb Administered 04/27/22 18:31 Dose 2.5 mg IH .STK-MED ONE Albuterol Sulfate 2.5 mg 04/27/22 18:35 04/27/22 18:35 Albuterol Sulfate 2.5 Mg/3 Ml Neb IH 04/27/22 18:36 2.5 mg STAT ONE Administration Furosemide 40 mg 04/27/22 18:38 04/27/22 19:06 Furosemide 40 Mg/4 Ml Vial IV 04/27/22 18:39 40 mg STAT ONE Administration Furosemide Confirm 04/27/22 18:42 Furosemide 40 Mg/4 Ml Vial Administered 04/27/22 18:43 Dose 40 mg .ROUTE .STK-MED ONE Levofloxacin/Dextrose 500 mg in 100 mls @ 100 mls/hr 04/27/22 19:29 04/27/22 20:41 Levofloxacin 500mg/100ml D5w IV 04/27/22 20:28 Infused STAT STA Infusion Levofloxacin/Dextrose Confirm 04/27/22 19:33 Levofloxacin 500mg/100ml D5w Administered 04/27/22 19:34 Dose 500 mg in 100 mls @ ud IV .STK-MED ONE Lorazepam 1 mg 04/27/22 18:37 04/27/22 19:06 Lorazepam 2 Mg/1 Ml 2 Mg Vial IV 04/27/22 18:38 1 mg STAT ONE Administration Lorazepam Confirm 04/27/22 18:41 Lorazepam 2 Mg/1 Ml 2 Mg Vial Administered 04/27/22 18:42 Dose 2 mg .ROUTE .STK-MED ONE Lorazepam 1 mg 04/27/22 20:10 04/27/22 20:15 Lorazepam 2 Mg/1 Ml 2 Mg Vial IV 04/27/22 20:11 1 mg STAT ONE Administration Lorazepam Confirm 04/27/22 20:14 Lorazepam 2 Mg/1 Ml 2 Mg Vial Administered 04/27/22 20:15 Dose 2 mg .ROUTE .STK-MED ONE Metoprolol Tartrate 5 mg 04/27/22 19:44 04/27/22 19:49 Metoprolol Tartrate 5 Mg/5 Ml Vial IV 04/27/22 19:45 5 mg STAT ONE Administration Metoprolol Tartrate Confirm 04/27/22 19:48 Metoprolol Tartrate 5 Mg/5 Ml Vial Administered 04/27/22 19:49 Dose 5 mg IV .STK-MED ONE Lab/Rad Data: Laboratory Result Diagrams 04/27/22 19:15 04/27/22 19:15 Laboratory Results 04/27/22 04/27/22 04/27/22 Range/Units Unknown 20:30 19:15 WBC (4.0-10.5) x10^3/uL RBC (4.1-5.6) x10^6/uL Hgb (12.5-18.0) g/dL Hct (42-50) % MCV (78-100) fL MCH (26-32) pg MCHC (32-36) g/dL RDW (11.5-14.0) % Plt Count (150-450) x10^3/uL MPV (7.5-11.0) fL Gran % (36.0-66.0) % Immature Gran % (Auto) (0.00-0.4) % Nucleat RBC Rel Count (0.00-0.1) % Eos # (Auto) (0-0.5) x10^3/uL Immature Gran # (Auto) (0.00-0.03) x10^3u/L Absolute Lymphs (auto) (1.0-4.6) x10^3/uL Absolute Monos (auto) (0.0-1.3) x10^3/uL Absolute Nucleated RBC (0.00-0.01) x10^3u/L Lymphocytes % (24.0-44.0) % Monocytes % (0.0-12.0) % Eosinophils % (0.00-5.0) % Basophils % (0.0-0.4) % Absolute Granulocytes (1.4-6.9) x10^3/uL Basophils # (0-0.4) x10^3/uL Puncture Site RIGHT RADIAL pCO2 76 H* (35-45) mmHg pO2 218 H* (75-100) mmHg Base Excess 2.6 H (-2.0-2.0) O2 Saturation 96.8 (94-100) g/dF ABG pH 7.23 L* (7.35-7.45) ABG HCO3 31.8 H* (22-28) ABG O2 Sat (Measured) 99.7 (95-100) % Clay Test YES A-a Gradient 257 a/A Ratio 0.46 Hemoglobin 10.9 Carboxyhemoglobin 2.1 (0.0-6.9) % THgb Methemoglobin 0.9 L (1.4-1.5) % Potassium 4.4 (3.5-5.1) Temperature 37.0 C POC O2 Flow Rate 80 % Vent Rate 16 /MIN Inspiratory BiPAP 16 Expiratory BiPAP 8 Sodium (137-145) mmol/L Chloride (98-107) mmol/L Carbon Dioxide (22-30) mmol/L Anion Gap (5-15) MEQ/L BUN (9-20) mg/dL Creatinine (0.66-1.25) mg/dL Estimated GFR ML/MIN Glucose (74-106) mg/dL Lactic Acid (0.4-2.0) Calcium (8.4-10.2) mg/dL Magnesium (1.6-2.3) mg/dL Total Bilirubin (0.2-1.3) mg/dL AST (17-59) U/L ALT (0-50) U/L Alkaline Phosphatase (38-126) U/L Troponin I < 0.012 (0.000-0.034) ng/mL NT-Pro-B Natriuret Pep (0-900) pg/mL Serum Total Protein (6.3-8.2) g/dL Albumin (3.5-5.0) g/dL Influenza Type A Ag NEGATIVE (NEGATIVE) Influenza Type B Ag NEGATIVE (NEGATIVE) RSV (PCR) NEGATIVE (Negative) SARS-CoV-2 (PCR) NEGATIVE (NEGATIVE) Slides for Path Review 04/27/22 04/27/22 04/27/22 Range/Units 19:15 19:15 18:33 WBC 17.3 H (4.0-10.5) x10^3/uL RBC 3.90 L (4.1-5.6) x10^6/uL Hgb 10.8 L (12.5-18.0) g/dL Hct 35.7 L (42-50) % MCV 91.5 (78-100) fL MCH 27.7 (26-32) pg MCHC 30.3 L (32-36) g/dL RDW 15.9 H (11.5-14.0) % Plt Count 399 (150-450) x10^3/uL MPV 9.6 (7.5-11.0) fL Gran % 66.5 H (36.0-66.0) % Immature Gran % (Auto) 0.9 H (0.00-0.4) % Nucleat RBC Rel Count 0.0 (0.00-0.1) % Eos # (Auto) 0.14 (0-0.5) x10^3/uL Immature Gran # (Auto) 0.15 H (0.00-0.03) x10^3u/L Absolute Lymphs (auto) 3.81 (1.0-4.6) x10^3/uL Absolute Monos (auto) 1.66 H (0.0-1.3) x10^3/uL Absolute Nucleated RBC 0.00 (0.00-0.01) x10^3u/L Lymphocytes % 22.0 L (24.0-44.0) % Monocytes % 9.6 (0.0-12.0) % Eosinophils % 0.8 (0.00-5.0) % Basophils % 0.2 (0.0-0.4) % Absolute Granulocytes 11.49 H (1.4-6.9) x10^3/uL Basophils # 0.03 (0-0.4) x10^3/uL Puncture Site pCO2 (35-45) mmHg pO2 (75-100) mmHg Base Excess (-2.0-2.0) O2 Saturation (94-100) g/dF ABG pH (7.35-7.45) ABG HCO3 (22-28) ABG O2 Sat (Measured) (95-100) % Clay Test A-a Gradient a/A Ratio Hemoglobin Carboxyhemoglobin (0.0-6.9) % THgb Methemoglobin (1.4-1.5) % Potassium 5.0 (3.5-5.1) Temperature C POC O2 Flow Rate % Vent Rate /MIN Inspiratory BiPAP Expiratory BiPAP Sodium 136 L (137-145) mmol/L Chloride 96 L (98-107) mmol/L Carbon Dioxide 33 H (22-30) mmol/L Anion Gap 12.2 (5-15) MEQ/L BUN 27 H (9-20) mg/dL Creatinine 0.93 (0.66-1.25) mg/dL Estimated GFR > 60.0 ML/MIN Glucose 187 H (74-106) mg/dL Lactic Acid 1.9 (0.4-2.0) Calcium 8.4 (8.4-10.2) mg/dL Magnesium 2.4 H (1.6-2.3) mg/dL Total Bilirubin 0.50 (0.2-1.3) mg/dL AST 47 (17-59) U/L ALT 57 H (0-50) U/L Alkaline Phosphatase 115 (38-126) U/L Troponin I (0.000-0.034) ng/mL NT-Pro-B Natriuret Pep 6260 H (0-900) pg/mL Serum Total Protein 7.3 (6.3-8.2) g/dL Albumin 4.2 (3.5-5.0) g/dL Influenza Type A Ag (NEGATIVE) Influenza Type B Ag (NEGATIVE) RSV (PCR) (Negative) SARS-CoV-2 (PCR) (NEGATIVE) Slides for Path Review YES 04/27/22 Range/Units 18:33 WBC (4.0-10.5) x10^3/uL RBC (4.1-5.6) x10^6/uL Hgb (12.5-18.0) g/dL Hct (42-50) % MCV (78-100) fL MCH (26-32) pg MCHC (32-36) g/dL RDW (11.5-14.0) % Plt Count (150-450) x10^3/uL MPV (7.5-11.0) fL Gran % (36.0-66.0) % Immature Gran % (Auto) (0.00-0.4) % Nucleat RBC Rel Count (0.00-0.1) % Eos # (Auto) (0-0.5) x10^3/uL Immature Gran # (Auto) (0.00-0.03) x10^3u/L Absolute Lymphs (auto) (1.0-4.6) x10^3/uL Absolute Monos (auto) (0.0-1.3) x10^3/uL Absolute Nucleated RBC (0.00-0.01) x10^3u/L Lymphocytes % (24.0-44.0) % Monocytes % (0.0-12.0) % Eosinophils % (0.00-5.0) % Basophils % (0.0-0.4) % Absolute Granulocytes (1.4-6.9) x10^3/uL Basophils # (0-0.4) x10^3/uL Puncture Site LEFT RADIAL pCO2 62 H* (35-45) mmHg pO2 101 H (75-100) mmHg Base Excess 1.2 (-2.0-2.0) O2 Saturation 95.5 (94-100) g/dF ABG pH 7.28 L (7.35-7.45) ABG HCO3 29.1 H* (22-28) ABG O2 Sat (Measured) 99.1 (95-100) % Clay Test YES A-a Gradient 428 a/A Ratio 0.19 Hemoglobin 11.1 Carboxyhemoglobin 3.0 (0.0-6.9) % THgb Methemoglobin 0.6 L (1.4-1.5) % Potassium 4.4 (3.5-5.1) Temperature 37.0 C POC O2 Flow Rate 85 % Vent Rate /MIN Inspiratory BiPAP Expiratory BiPAP Sodium (137-145) mmol/L Chloride (98-107) mmol/L Carbon Dioxide (22-30) mmol/L Anion Gap (5-15) MEQ/L BUN (9-20) mg/dL Creatinine (0.66-1.25) mg/dL Estimated GFR ML/MIN Glucose (74-106) mg/dL Lactic Acid (0.4-2.0) Calcium (8.4-10.2) mg/dL Magnesium (1.6-2.3) mg/dL Total Bilirubin (0.2-1.3) mg/dL AST (17-59) U/L ALT (0-50) U/L Alkaline Phosphatase (38-126) U/L Troponin I (0.000-0.034) ng/mL NT-Pro-B Natriuret Pep (0-900) pg/mL Serum Total Protein (6.3-8.2) g/dL Albumin (3.5-5.0) g/dL Influenza Type A Ag (NEGATIVE) Influenza Type B Ag (NEGATIVE) RSV (PCR) (Negative) SARS-CoV-2 (PCR) (NEGATIVE) Slides for Path Review - Progress Progress: improved Air Movement: poor Progress Note: 04/27/22 19:15 Patient is agitated and despite placing him on 12 L Oxymizer and improving his oxygenation saturation levels to 96 to 99% he continues to remove the nasal ca nnula Oxymizer. Patient states he does not want to be placed on a mechanical ventilator. He is now agreeing to oxymask. Respiratory therapy is in the patient's room with myself. 04/27/22 19:30 Reevaluated patient. Patient appears to be in more distress. We will place him on BiPAP and then repeat an arterial blood gas. We will place a Myles catheter. Patient has received Lasix and Ativan intravenously. Patient's chest x-ray shows what appears to be a new infiltrate in the right upper lobe that was not present on chest x-ray 4 days ago. There is what appears to be larger pleural effusion in the right base and possibly associated right lower lobe infiltrate. 04/27/22 21:06 Medical decision making: This patient's emergency department stay is 1 of moderate complexity. Required me to evaluate this patient in moderate distress and review old records and old lab results and compared to the new radiographic study results and the new laboratory study results. Patient was significantly hypoxic and we were able to stabilize him ultimately on BiPAP. We have adjusted the oxygen delivery based on 2 separate arterial blood gas results. Patient is now much more comfortable and is has saturation on BiPAP settings at 97 to 99%. His respiratory rate has decreased as has his heart rate. I spoke with Dr. Christensen who is his primary care provider and is taking called this evening. We will place him in the ICU on BiPAP. Patient required Myles catheter because we are using Lasix in him because he does have evidence of both pneumonia and progressive heart failure. We will place him on Levaquin intravenously every 24 hours. Patient still voicing he does not want to be endotracheally intubated. 04/27/22 21:11 Blood Culture(s) Obtained: Yes Antibiotics given: Yes Counseled pt/family regarding: lab results, diagnosis, rad results - Departure Departure Disposition: In-patient Admission Clinical Impression: Pneumonia, CHF (congestive heart failure), Hypoxia Condition: Serious Critical Care Time: Yes Critical Care Time(excluding separately billable procedures): Critical 30-74 mins (40 minutes) Referrals: TASIA CHRISTENSEN MD [Primary Care Provider] - Follow up/PCP as directed Instructions: Heart Failure
[2022-04-27 19:18] LABS: Absolute Neutrophil Ct (ANC) 11.49 x10^3/uL (1.4-6.9); BASOPHIL % 0.2 % (0.0-0.4); Basophil (Absolute #) 0.03 x10^3/uL (0-0.4); Eosinophil % 0.8 % (0.00-5.0); Eosinophil (Absolute #) 0.14 x10^3/uL (0-0.5); Hematocrit 35.7 % (42-50); Hemoglobin 10.8 g/dL (12.5-18.0); IMMATURE GRAN # 0.15 x10^3u/L (0.00-0.03); IMMATURE GRAN % 0.9 % (0.00-0.4); Lymphocyte (Absolute #) 3.81 x10^3/uL (1.0-4.6); Mean Cell Volume 91.5 fL (78-100); Mean Corpuscular Hemoglobin 27.7 pg (26-32); Mean Corpuscular Hgb Concent. 30.3 g/dL (32-36); Mean Platelet Volume 9.6 fL (7.5-11.0); Monocyte (Absolute #) 1.66 x10^3/uL (0.0-1.3); Monocytes % 9.6 % (0.0-12.0); Neutrophil % 66.5 % (36.0-66.0); Platelet Count 399 x10^3/uL (150-450); Red Cell Distribution Width 15.9 % (11.5-14.0); White Blood Count 17.3 x10^3/uL (4.0-10.5)
[2022-04-27] MEDS ORDERED: Levofloxacin 500MG/100ML D5W 500 MG/100 ML BAG IV STA (19:29)
[2022-04-27] MEDS ORDERED: Levofloxacin 500MG/100ML D5W 500 MG/100 ML BAG IV ONE (19:33)
[2022-04-27] MEDS ORDERED: LOPRESSOR INJECTION IV ONE ×2 (19:44→19:48)
[2022-04-27 19:50] LABS: ALBUMIN 4.2 g/dL (3.5-5.0); ALKALINE PHOSPHATASE 115 U/L (38-126); ANION GAP 12.2 MEQ/L (5-15); BLOOD UREA NITROGEN 27 mg/dL (9-20); CHLORIDE 96 mmol/L (98-107); Calcium 8.4 mg/dL (8.4-10.2); Carbon Dioxide 33 mmol/L (22-30); Creatinine 1 0.93 mg/dL (0.66-1.25); EST GLOMERULAR FILTRATION RATE > 60.0 ML/MIN; Glucose 187 mg/dL (74-106); MAGNESIUM 2.4 mg/dL (1.6-2.3); NT PRO BNP 6260 pg/mL (0-900); SGOT/AST 47 U/L (17-59); SGPT/ALT 57 U/L (0-50); SODIUM 136 mmol/L (137-145); Total Protein 7.3 g/dL (6.3-8.2)
[2022-04-27 19:57] LABS: INFLUENZA A NEGATIVE (NEGATIVE); INFLUENZA B NEGATIVE (NEGATIVE); RESPIRATORY SYNCTIAL VIRUS NEGATIVE (Negative); SARS-CoV-2 Xpert Express NEGATIVE (NEGATIVE)
[2022-04-27 20:34] LABS: Slide Review 1 YES
[2022-04-27 20:35] LABS: A-aADO2 257; ABG HEMOGLOBIN 10.9; ABG POTASSIUM 4.4 (3.5-5.1); ARTERIAL BLD GAS O2 SATURATION 99.7 % (95-100); ARTERIAL BLOOD GAS BASE EXCESS 2.6 (-2.0-2.0); ARTERIAL BLOOD GAS FIO2 80 %; ARTERIAL BLOOD GAS PO2 218 mmHg (75-100); CARBOXYHEMOGLOBIN 2.1 % THgb (0.0-6.9); HCO3- 31.8 (22-28); HGB O2 SAT 96.8 g/dF (94-100); Methhemoglobin 0.9 % (1.4-1.5); paO2 pAO1 0.46
[2022-04-27 20:36] LABS: ARTERIAL BLOOD GAS PCO2 76 mmHg (35-45); ARTERIAL BLOOD GAS pH 7.23 (7.35-7.45)
[2022-04-27 21:01] LABS: ABG SITE RIGHT RADIAL; ALLEN TEST OK? YES; ARTERIAL BLOOD GAS VENT RATE 16 /MIN; BIPAP(E) 8; BIPAP(I) 16
[2022-04-27 22:56] LABS: A-aADO2 230; ABG HEMOGLOBIN 11.1; ABG POTASSIUM 4.7 (3.5-5.1); ARTERIAL BLD GAS O2 SATURATION 99.1 % (95-100); ARTERIAL BLOOD GAS BASE EXCESS 5.5 (-2.0-2.0); ARTERIAL BLOOD GAS FIO2 55 %; ARTERIAL BLOOD GAS PCO2 52 mmHg (35-45); ARTERIAL BLOOD GAS PO2 97 mmHg (75-100); ARTERIAL BLOOD GAS pH 7.39 (7.35-7.45); BIPAP(E) 8; BIPAP(I) 16; CARBOXYHEMOGLOBIN 3.1 % THgb (0.0-6.9); HCO3- 31.5 (22-28); HGB O2 SAT 95.5 g/dF (94-100); Methhemoglobin 0.5 % (1.4-1.5)
[2022-04-27 22:57] LABS: ABG SITE LEFT RADIAL; ALLEN TEST OK? YES
[2022-04-28] MEDS ORDERED: Ativan 2 MG/1 ML VIAL IV ONE (00:01)
[2022-04-28] MEDS ORDERED: Ativan 2 MG/1 ML VIAL ONE (00:53)
[2022-04-28] MEDS ORDERED: DUONEB 0.5-3 MG/3 ml Neb IH ONE (01:50)
[2022-04-28] MEDS: DUONEB 0.5-3 MG/3 ml Neb IH SCH ×5 (02:00→18:15)
[2022-04-28] MEDS ORDERED: TYLENOL 325 MG PO PRN (02:06)
[2022-04-28] MEDS ORDERED: Zofran 4 MG/2 ML VIAL IV PRN (02:06)
[2022-04-28] MEDS ORDERED: Lasix 40 MG/4 ML IV SCH (02:06)
[2022-04-28] MEDS ORDERED: VENTOLIN COMMON CANISTER IH PRN (02:26)
[2022-04-28] MEDS: Ativan 2 MG/1 ML VIAL IV PRN ×7 (03:21→23:31)
[2022-04-28 04:22] LABS: Absolute Neutrophil Ct (ANC) 7.79 x10^3/uL (1.4-6.9); BASOPHIL % 0.1 % (0.0-0.4); Basophil (Absolute #) 0.01 x10^3/uL (0-0.4); Eosinophil (Absolute #) 0 x10^3/uL (0-0.5); Hematocrit 31.6 % (42-50); Hemoglobin 9.7 g/dL (12.5-18.0); IMMATURE GRAN # 0.06 x10^3u/L (0.00-0.03); IMMATURE GRAN % 0.7 % (0.00-0.4); Lymphocyte (Absolute #) 0.54 x10^3/uL (1.0-4.6); Lymphocytes % 6.3 % (24.0-44.0); Mean Cell Volume 89.3 fL (78-100); Mean Corpuscular Hemoglobin 27.4 pg (26-32); Mean Corpuscular Hgb Concent. 30.7 g/dL (32-36); Mean Platelet Volume 9.2 fL (7.5-11.0); Monocyte (Absolute #) 0.13 x10^3/uL (0.0-1.3); Monocytes % 1.5 % (0.0-12.0); Neutrophil % 91.4 % (36.0-66.0); Platelet Count 261 x10^3/uL (150-450); Red Blood Count 3.54 x10^6/uL (4.1-5.6); Red Cell Distribution Width 15.9 % (11.5-14.0); White Blood Count 8.5 x10^3/uL (4.0-10.5)
[2022-04-28 04:33] LABS: A-aADO2 232; ABG HEMOGLOBIN 10.8; ABG POTASSIUM 4.2 (3.5-5.1); ABG SITE RIGHT RADIAL; ALLEN TEST OK? YES; ARTERIAL BLD GAS O2 SATURATION 98.5 % (95-100); ARTERIAL BLD GAS TIDAL VOLUME 650 cc; ARTERIAL BLOOD GAS FIO2 55 %; ARTERIAL BLOOD GAS PCO2 55 mmHg (35-45); ARTERIAL BLOOD GAS PEEP 8 cmH2O; ARTERIAL BLOOD GAS PO2 91 mmHg (75-100); ARTERIAL BLOOD GAS VENT MODE AVAPS; ARTERIAL BLOOD GAS VENT RATE 20 /MIN; ARTERIAL BLOOD GAS pH 7.39 (7.35-7.45); CARBOXYHEMOGLOBIN 1.5 % THgb (0.0-6.9); HCO3- 33.3 (22-28); paO2 pAO1 0.28
[2022-04-28 04:43] LABS: ALBUMIN 3.9 g/dL (3.5-5.0); ALKALINE PHOSPHATASE 105 U/L (38-126); ANION GAP 10.4 MEQ/L (5-15); BLOOD UREA NITROGEN 33 mg/dL (9-20); CHLORIDE 95 mmol/L (98-107); Calcium 7.7 mg/dL (8.4-10.2); Carbon Dioxide 33 mmol/L (22-30); Creatinine 1 0.91 mg/dL (0.66-1.25); EST GLOMERULAR FILTRATION RATE > 60.0 ML/MIN; Glucose 173 mg/dL (74-106); NT PRO BNP 7020 pg/mL (0-900); PREALBUMIN 19.58 mg/dL (17.6-36.0); Potassium 4.6 mmol/L (3.5-5.1); SGOT/AST 50 U/L (17-59); SGPT/ALT 51 U/L (0-50); SODIUM 133 mmol/L (137-145); Total Protein 6.9 g/dL (6.3-8.2)
--- NOTE | 2022-04-28 08:30 | XRAY ---
Indication: Short of breath. Comparison: April 23, 2022 Portable chest demonstrates stable right mid to lower lung infiltrate/atelectasis/effusion and tiny left effusion. New moderate right upper lobe infiltrate/atelectasis. Heart not enlarged. Bony thorax intact again with osteopenia and degenerative changes.
[2022-04-28] MEDS: MORPHINE SULFATE 4 MG INJ IV PRN (09:41)
--- NOTE | 2022-04-28 10:42 | PCM.HP ---
History of Present Illness - Chief Complaint Chief Complaint: c/o severe shortness of breath for 1 day History of Present Illness: is a 71 year old male.who was recently admitted and discharged from this hospital (04/23 to 04/24/2022 respectively) for shortness of air. He was diagnosed with CHF and COPD exacerbation. According to the chart which I reviewed from his recent hospitalization and discharge, patient was given prescriptions for the patient to fill as an outpatient. He did not fill those prescriptions. Over the last few days his symptoms have worsened. Patient continues to smoke cigarettes. Patient is a poor historian and it was necessary for me to review old charts. Patient has a history of COPD, hypertension, CHF, cirrhosis and peripheral vascular disease. Patient had a CTA of the chest done on 04/24/2022 which is negative for pulmonary embolus but showed pleural effusions, cardiomegaly. Patient has chronic anemia and chronic hyponatremia. He has no complaints of chest pain at this time. Patient's oxygen saturation on 12 L Oxymizer is 99%. I obtained additional information from EMS/paramedics Activities at Onset: activity Severity of Dyspnea-Max: moderate Severity of Dyspnea-Current: moderate Possible Cause: frequent episodes, chronic episodes Modifying Factors: Improves With: activity, oxygen (Improves) - Review of Systems Constitutional: Lethargy, Weakness, No Fever, No Chills Eyes: No Symptoms Ears, Nose, & Throat: No Symptoms Respiratory: Cough, Orthopnea, Short Of Breath, Wheezing Cardiac: Orthopnea, PND, No Chest Pain, No Edema, No Syncope Abdominal/Gastrointestinal: No Abdominal Pain, No Nausea, No Vomiting, No Diarrhea Genitourinary Symptoms: No Dysuria Musculoskeletal: No Back Pain, No Neck Pain Skin: No Rash Neurological: Irritability, Lethargy, No Dizziness, No Focal Weakness, No Sensory Changes Psychological: No Symptoms Endocrine: No Symptoms Hematologic/Lymphatic: No Symptoms Immunological/Allergic: No Symptoms Medications & Allergies Home Medications: Home Medication List Albuterol Common Canister [Ventolin Common Canister] 1 puff IH Q4-6HPRN PRN 09/06/21 [History Confirmed 04/28/22] Amlodipine Besylate 5 mg PO DAILY #30 tablet 04/25/22 [Rx Confirmed 04/28/22] Apixaban [Eliquis 5 mg Tablet] 5 mg PO BID #30 tablet 04/25/22 [Rx Confirmed 04/28/22] Docusate Sodium [Colace] 100 mg PO BID PRN 04/28/22 [History Confirmed 04/28/22] Metoprolol Tartrate 50 mg [Lopressor 50 MG] 50 mg PO BID 04/28/22 [History Confirmed 04/28/22] Multivit-Min/FA/Lycopen/Lutein [Centrum Silver Tablet] 1 tab PO DAILY 04/28/22 [History Confirmed 04/28/22] Allergies/Adverse Reactions: Allergies Allergy/AdvReac Type Severity Reaction Status Date / Time Penicillins Allergy Severe Anaphylactic Verified 04/27/22 19:07 Reaction - Past Medical History Past Medical History: Yes Neurological History: Stroke ENT History: No Pertinent History Cardiac History: Arrhythmia, Congestive Heart Failure, Coronary Artery Disease, Hypertension, Other Respiratory History: COPD Endocrine Medical History: No Pertinent History, Liver Disease Musculoskelatal History: No Pertinent History GI Medical History: Cirrhosis, Other History: No Pertinent History Pyscho-Social History: No Pertinent History Male Reproductive Disorders: No Pertinent History Comment: Atrial Fibrillation; Venous Insufficiency - Past Surgical History Past Surgical History: Yes Neuro Surgical History: No Pertinent History Cardiac History: Vascular Surgery Respiratory Surgery: No Pertinent History GI Surgical History: No Pertinent History Genitourinary Surgical Hx: No Pertinent History Musculskeletal Surgical Hx: No Pertinent History Male Surgical History: No Pertinent History Other Surgical History: stent to tono femoral artery, caroditectomy. Patient is a poor historian. History recalled from previous admission. - Social History Smoking Status: Current every day smoker How long have you smoked: years Exposure to second hand smoke: Yes Alcohol: Occasionally Drug Use: none Significant Family History: no pertinent family hx - Physical Exam Vital Signs: Vital Signs - 24 hr Temp Pulse Resp BP BP Pulse Ox 04/28/22 10:30 92 H 20 99 04/28/22 09:57 88 25 H 131/77 99 04/28/22 09:00 96 H 24 131/77 04/28/22 07:49 96 H 23 119/77 98 04/28/22 06:51 99 H 25 H 100 04/28/22 06:41 86 24 100 04/28/22 06:06 104 H 24 108/68 04/28/22 06:00 97.5 F 100 H 24 108/68 96 04/28/22 05:00 105 H 20 98 04/28/22 04:00 97 F 106 H 20 102/84 98 04/28/22 03:21 101 H 28 H 136/99 04/28/22 03:00 97.1 F 92 H 26 H 136/99 99 04/28/22 02:45 97.4 F 114 H 24 151/104 99 04/28/22 02:06 99 04/28/22 02:00 114 H 21 99 04/28/22 01:06 128/85 04/28/22 01:01 107 H 22 191/137 94 L 04/28/22 00:00 113 H 22 123/77 95 04/27/22 23:00 113 H 24 118/96 95 04/27/22 22:05 109 H 23 166/123 04/27/22 21:02 96 H 15 136/81 100 04/27/22 20:03 107 H 191/129 100 04/27/22 19:41 110 H 172/132 100 04/27/22 18:35 114 H 30 H 92 L 04/27/22 18:30 96.4 F 114 H 176/144 96 General Appearance: moderate distress Neurologic Exam: disoriented Eye Exam: PERRL/EOMI Ears, Nose, Throat Exam: normal ENT inspection Neck Exam: normal inspection Respiratory Exam: diminished breath sounds, accessory muscle use, crackles/rales, rhonchi, wheezing Cardiovascular Exam: irregular Gastrointestinal/Abdomen Exam: soft Male Genitalia Exam: normal genitalia Back Exam: normal inspection Results - Labs Lab/Micro Results: Lab Results-Last 24 Hours 04/27/22 04/27/22 04/27/22 Range/Units 18:33 18:33 19:15 WBC 17.3 H (4.0-10.5) x10^3/uL RBC 3.90 L (4.1-5.6) x10^6/uL Hgb 10.8 L (12.5-18.0) g/dL Hct 35.7 L (42-50) % MCV 91.5 (78-100) fL MCH 27.7 (26-32) pg MCHC 30.3 L (32-36) g/dL RDW 15.9 H (11.5-14.0) % Plt Count 399 (150-450) x10^3/uL MPV 9.6 (7.5-11.0) fL Gran % 66.5 H (36.0-66.0) % Immature Gran % (Auto) 0.9 H (0.00-0.4) % Nucleat RBC Rel Count 0.0 (0.00-0.1) % Eos # (Auto) 0.14 (0-0.5) x10^3/uL Immature Gran # (Auto) 0.15 H (0.00-0.03) x10^3u/L Absolute Lymphs (auto) 3.81 (1.0-4.6) x10^3/uL Absolute Monos (auto) 1.66 H (0.0-1.3) x10^3/uL Absolute Nucleated RBC 0.00 (0.00-0.01) x10^3u/L Lymphocytes % 22.0 L (24.0-44.0) % Monocytes % 9.6 (0.0-12.0) % Eosinophils % 0.8 (0.00-5.0) % Basophils % 0.2 (0.0-0.4) % Absolute Granulocytes 11.49 H (1.4-6.9) x10^3/uL Basophils # 0.03 (0-0.4) x10^3/uL Puncture Site LEFT RADIAL pCO2 62 H* (35-45) mmHg pO2 101 H (75-100) mmHg Base Excess 1.2 (-2.0-2.0) O2 Saturation 95.5 (94-100) g/dF ABG pH 7.28 L (7.35-7.45) ABG HCO3 29.1 H* (22-28) ABG O2 Sat (Measured) 99.1 (95-100) % Clay Test YES A-a Gradient 428 a/A Ratio 0.19 Hemoglobin 11.1 Carboxyhemoglobin 3.0 (0.0-6.9) % THgb Methemoglobin 0.6 L (1.4-1.5) % Potassium 4.4 (3.5-5.1) Temperature 37.0 C POC O2 Flow Rate 85 % Vent Mode Vent Rate /MIN Tidal Volume cc PEEP cmH2O Inspiratory BiPAP Expiratory BiPAP Sodium (137-145) mmol/L Chloride (98-107) mmol/L Carbon Dioxide (22-30) mmol/L Anion Gap (5-15) MEQ/L BUN (9-20) mg/dL Creatinine (0.66-1.25) mg/dL Estimated GFR ML/MIN Glucose (74-106) mg/dL Lactic Acid 1.9 (0.4-2.0) Calcium (8.4-10.2) mg/dL Magnesium (1.6-2.3) mg/dL Total Bilirubin (0.2-1.3) mg/dL AST (17-59) U/L ALT (0-50) U/L Alkaline Phosphatase (38-126) U/L Troponin I (0.000-0.034) ng/mL NT-Pro-B Natriuret Pep (0-900) pg/mL Serum Total Protein (6.3-8.2) g/dL Albumin (3.5-5.0) g/dL Prealbumin (17.6-36.0) mg/dL Influenza Type A Ag (NEGATIVE) Influenza Type B Ag (NEGATIVE) RSV (PCR) (Negative) SARS-CoV-2 (PCR) (NEGATIVE) Slides for Path Review YES 04/27/22 04/27/22 04/27/22 Range/Units 19:15 19:15 20:30 WBC (4.0-10.5) x10^3/uL RBC (4.1-5.6) x10^6/uL Hgb (12.5-18.0) g/dL Hct (42-50) % MCV (78-100) fL MCH (26-32) pg MCHC (32-36) g/dL RDW (11.5-14.0) % Plt Count (150-450) x10^3/uL MPV (7.5-11.0) fL Gran % (36.0-66.0) % Immature Gran % (Auto) (0.00-0.4) % Nucleat RBC Rel Count (0.00-0.1) % Eos # (Auto) (0-0.5) x10^3/uL Immature Gran # (Auto) (0.00-0.03) x10^3u/L Absolute Lymphs (auto) (1.0-4.6) x10^3/uL Absolute Monos (auto) (0.0-1.3) x10^3/uL Absolute Nucleated RBC (0.00-0.01) x10^3u/L Lymphocytes % (24.0-44.0) % Monocytes % (0.0-12.0) % Eosinophils % (0.00-5.0) % Basophils % (0.0-0.4) % Absolute Granulocytes (1.4-6.9) x10^3/uL Basophils # (0-0.4) x10^3/uL Puncture Site RIGHT RADIAL pCO2 76 H* (35-45) mmHg pO2 218 H* (75-100) mmHg Base Excess 2.6 H (-2.0-2.0) O2 Saturation 96.8 (94-100) g/dF ABG pH 7.23 L* (7.35-7.45) ABG HCO3 31.8 H* (22-28) ABG O2 Sat (Measured) 99.7 (95-100) % Clay Test YES A-a Gradient 257 a/A Ratio 0.46 Hemoglobin 10.9 Carboxyhemoglobin 2.1 (0.0-6.9) % THgb Methemoglobin 0.9 L (1.4-1.5) % Potassium 5.0 4.4 (3.5-5.1) Temperature 37.0 C POC O2 Flow Rate 80 % Vent Mode Vent Rate 16 /MIN Tidal Volume cc PEEP cmH2O Inspiratory BiPAP 16 Expiratory BiPAP 8 Sodium 136 L (137-145) mmol/L Chloride 96 L (98-107) mmol/L Carbon Dioxide 33 H (22-30) mmol/L Anion Gap 12.2 (5-15) MEQ/L BUN 27 H (9-20) mg/dL Creatinine 0.93 (0.66-1.25) mg/dL Estimated GFR > 60.0 ML/MIN Glucose 187 H (74-106) mg/dL Lactic Acid (0.4-2.0) Calcium 8.4 (8.4-10.2) mg/dL Magnesium 2.4 H (1.6-2.3) mg/dL Total Bilirubin 0.50 (0.2-1.3) mg/dL AST 47 (17-59) U/L ALT 57 H (0-50) U/L Alkaline Phosphatase 115 (38-126) U/L Troponin I < 0.012 (0.000-0.034) ng/mL NT-Pro-B Natriuret Pep 6260 H (0-900) pg/mL Serum Total Protein 7.3 (6.3-8.2) g/dL Albumin 4.2 (3.5-5.0) g/dL Prealbumin (17.6-36.0) mg/dL Influenza Type A Ag (NEGATIVE) Influenza Type B Ag (NEGATIVE) RSV (PCR) (Negative) SARS-CoV-2 (PCR) (NEGATIVE) Slides for Path Review 04/27/22 04/27/22 04/27/22 Range/Units 22:50 22:51 Unknown WBC (4.0-10.5) x10^3/uL RBC (4.1-5.6) x10^6/uL Hgb (12.5-18.0) g/dL Hct (42-50) % MCV (78-100) fL MCH (26-32) pg MCHC (32-36) g/dL RDW (11.5-14.0) % Plt Count (150-450) x10^3/uL MPV (7.5-11.0) fL Gran % (36.0-66.0) % Immature Gran % (Auto) (0.00-0.4) % Nucleat RBC Rel Count (0.00-0.1) % Eos # (Auto) (0-0.5) x10^3/uL Immature Gran # (Auto) (0.00-0.03) x10^3u/L Absolute Lymphs (auto) (1.0-4.6) x10^3/uL Absolute Monos (auto) (0.0-1.3) x10^3/uL Absolute Nucleated RBC (0.00-0.01) x10^3u/L Lymphocytes % (24.0-44.0) % Monocytes % (0.0-12.0) % Eosinophils % (0.00-5.0) % Basophils % (0.0-0.4) % Absolute Granulocytes (1.4-6.9) x10^3/uL Basophils # (0-0.4) x10^3/uL Puncture Site LEFT RADIAL pCO2 52 H (35-45) mmHg pO2 97 (75-100) mmHg Base Excess 5.5 H (-2.0-2.0) O2 Saturation 95.5 (94-100) g/dF ABG pH 7.39 (7.35-7.45) ABG HCO3 31.5 H* (22-28) ABG O2 Sat (Measured) 99.1 (95-100) % Clay Test YES A-a Gradient 230 a/A Ratio 0.30 Hemoglobin 11.1 Carboxyhemoglobin 3.1 (0.0-6.9) % THgb Methemoglobin 0.5 L (1.4-1.5) % Potassium 4.7 (3.5-5.1) Temperature 37.0 C POC O2 Flow Rate 55 % Vent Mode Vent Rate /MIN Tidal Volume cc PEEP cmH2O Inspiratory BiPAP 16 Expiratory BiPAP 8 Sodium (137-145) mmol/L Chloride (98-107) mmol/L Carbon Dioxide (22-30) mmol/L Anion Gap (5-15) MEQ/L BUN (9-20) mg/dL Creatinine (0.66-1.25) mg/dL Estimated GFR ML/MIN Glucose (74-106) mg/dL Lactic Acid (0.4-2.0) Calcium (8.4-10.2) mg/dL Magnesium (1.6-2.3) mg/dL Total Bilirubin (0.2-1.3) mg/dL AST (17-59) U/L ALT (0-50) U/L Alkaline Phosphatase (38-126) U/L Troponin I < 0.012 (0.000-0.034) ng/mL NT-Pro-B Natriuret Pep (0-900) pg/mL Serum Total Protein (6.3-8.2) g/dL Albumin (3.5-5.0) g/dL Prealbumin (17.6-36.0) mg/dL Influenza Type A Ag NEGATIVE (NEGATIVE) Influenza Type B Ag NEGATIVE (NEGATIVE) RSV (PCR) NEGATIVE (Negative) SARS-CoV-2 (PCR) NEGATIVE (NEGATIVE) Slides for Path Review 04/28/22 04/28/22 04/28/22 Range/Units 04:16 04:16 04:16 WBC 8.5 (4.0-10.5) x10^3/uL RBC 3.54 L (4.1-5.6) x10^6/uL Hgb 9.7 L (12.5-18.0) g/dL Hct 31.6 L (42-50) % MCV 89.3 (78-100) fL MCH 27.4 (26-32) pg MCHC 30.7 L (32-36) g/dL RDW 15.9 H (11.5-14.0) % Plt Count 261 D (150-450) x10^3/uL MPV 9.2 (7.5-11.0) fL Gran % 91.4 H (36.0-66.0) % Immature Gran % (Auto) 0.7 H (0.00-0.4) % Nucleat RBC Rel Count 0.0 (0.00-0.1) % Eos # (Auto) 0 (0-0.5) x10^3/uL Immature Gran # (Auto) 0.06 H (0.00-0.03) x10^3u/L Absolute Lymphs (auto) 0.54 L (1.0-4.6) x10^3/uL Absolute Monos (auto) 0.13 (0.0-1.3) x10^3/uL Absolute Nucleated RBC 0.00 (0.00-0.01) x10^3u/L Lymphocytes % 6.3 L (24.0-44.0) % Monocytes % 1.5 (0.0-12.0) % Eosinophils % 0.0 (0.00-5.0) % Basophils % 0.1 (0.0-0.4) % Absolute Granulocytes 7.79 H (1.4-6.9) x10^3/uL Basophils # 0.01 (0-0.4) x10^3/uL Puncture Site pCO2 (35-45) mmHg pO2 (75-100) mmHg Base Excess (-2.0-2.0) O2 Saturation (94-100) g/dF ABG pH (7.35-7.45) ABG HCO3 (22-28) ABG O2 Sat (Measured) (95-100) % Clay Test A-a Gradient a/A Ratio Hemoglobin Carboxyhemoglobin (0.0-6.9) % THgb Methemoglobin (1.4-1.5) % Potassium 4.6 (3.5-5.1) Temperature C POC O2 Flow Rate % Vent Mode Vent Rate /MIN Tidal Volume cc PEEP cmH2O Inspiratory BiPAP Expiratory BiPAP Sodium 133 L (137-145) mmol/L Chloride 95 L (98-107) mmol/L Carbon Dioxide 33 H (22-30) mmol/L Anion Gap 10.4 (5-15) MEQ/L BUN 33 H (9-20) mg/dL Creatinine 0.91 (0.66-1.25) mg/dL Estimated GFR > 60.0 ML/MIN Glucose 173 H (74-106) mg/dL Lactic Acid (0.4-2.0) Calcium 7.7 L (8.4-10.2) mg/dL Magnesium (1.6-2.3) mg/dL Total Bilirubin 0.50 (0.2-1.3) mg/dL AST 50 (17-59) U/L ALT 51 H (0-50) U/L Alkaline Phosphatase 105 (38-126) U/L Troponin I < 0.012 (0.000-0.034) ng/mL NT-Pro-B Natriuret Pep 7020 H (0-900) pg/mL Serum Total Protein 6.9 (6.3-8.2) g/dL Albumin 3.9 (3.5-5.0) g/dL Prealbumin 19.58 (17.6-36.0) mg/dL Influenza Type A Ag (NEGATIVE) Influenza Type B Ag (NEGATIVE) RSV (PCR) (Negative) SARS-CoV-2 (PCR) (NEGATIVE) Slides for Path Review 04/28/22 Range/Units 04:27 WBC (4.0-10.5) x10^3/uL RBC (4.1-5.6) x10^6/uL Hgb (12.5-18.0) g/dL Hct (42-50) % MCV (78-100) fL MCH (26-32) pg MCHC (32-36) g/dL RDW (11.5-14.0) % Plt Count (150-450) x10^3/uL MPV (7.5-11.0) fL Gran % (36.0-66.0) % Immature Gran % (Auto) (0.00-0.4) % Nucleat RBC Rel Count (0.00-0.1) % Eos # (Auto) (0-0.5) x10^3/uL Immature Gran # (Auto) (0.00-0.03) x10^3u/L Absolute Lymphs (auto) (1.0-4.6) x10^3/uL Absolute Monos (auto) (0.0-1.3) x10^3/uL Absolute Nucleated RBC (0.00-0.01) x10^3u/L Lymphocytes % (24.0-44.0) % Monocytes % (0.0-12.0) % Eosinophils % (0.00-5.0) % Basophils % (0.0-0.4) % Absolute Granulocytes (1.4-6.9) x10^3/uL Basophils # (0-0.4) x10^3/uL Puncture Site RIGHT RADIAL pCO2 55 H (35-45) mmHg pO2 91 (75-100) mmHg Base Excess 7.0 H (-2.0-2.0) O2 Saturation 96.0 (94-100) g/dF ABG pH 7.39 (7.35-7.45) ABG HCO3 33.3 H* (22-28) ABG O2 Sat (Measured) 98.5 (95-100) % Clay Test YES A-a Gradient 232 a/A Ratio 0.28 Hemoglobin 10.8 Carboxyhemoglobin 1.5 (0.0-6.9) % THgb Methemoglobin 1.0 L (1.4-1.5) % Potassium 4.2 (3.5-5.1) Temperature 37.0 C POC O2 Flow Rate 55 % Vent Mode AVAPS Vent Rate 20 /MIN Tidal Volume 650 cc PEEP 8 cmH2O Inspiratory BiPAP Expiratory BiPAP Sodium (137-145) mmol/L Chloride (98-107) mmol/L Carbon Dioxide (22-30) mmol/L Anion Gap (5-15) MEQ/L BUN (9-20) mg/dL Creatinine (0.66-1.25) mg/dL Estimated GFR ML/MIN Glucose (74-106) mg/dL Lactic Acid (0.4-2.0) Calcium (8.4-10.2) mg/dL Magnesium (1.6-2.3) mg/dL Total Bilirubin (0.2-1.3) mg/dL AST (17-59) U/L ALT (0-50) U/L Alkaline Phosphatase (38-126) U/L Troponin I (0.000-0.034) ng/mL NT-Pro-B Natriuret Pep (0-900) pg/mL Serum Total Protein (6.3-8.2) g/dL Albumin (3.5-5.0) g/dL Prealbumin (17.6-36.0) mg/dL Influenza Type A Ag (NEGATIVE) Influenza Type B Ag (NEGATIVE) RSV (PCR) (Negative) SARS-CoV-2 (PCR) (NEGATIVE) Slides for Path Review - Radiology Impressions Radiology Exams & Impressions: Radiology Procedures Category Date Time Status CHEST 1 VIEW (PORTABLE) Stat Exams 04/27/22 18:37 Completed 0026 RAD/CHEST 1 VIEW (PORTABLE) Indication: Short of breath. Comparison: April 23, 2022 Portable chest demonstrates stable right mid to lower lung infiltrate/atelectasis/effusion and tiny left effusion. New moderate right upper lobe infiltrate/atelectasis. Heart not enlarged. Bony thorax intact again with osteopenia and degenerative changes. - Other Procedures and Tests Respiratory Therapy 04/28/22 02:23 BiPap/CPAP ROUTINE Respiratory Therapy Assessment DAILY 04/28/22 02:24 Oxygen Oxymizer LPM 12 lpm 04/28/22 03:02 Smoking Cessation Education ONCE Assessment/Plan (1) CHF (congestive heart failure) Current Visit: Yes Status: Acute Qualifiers: Heart failure type: combined systolic and diastolic Heart failure chronicity: acute on chronic Qualified Code(s): I50.43 - Acute on chronic combined systolic (congestive) and diastolic (congestive) heart failure Code(s): I50.9 - HEART FAILURE, UNSPECIFIED (2) Pneumonia Current Visit: Yes Status: Acute Qualifiers: Pneumonia type: due to unspecified organism Laterality: bilateral Lung location: lower lobe of lung Qualified Code(s): J18.9 - Pneumonia, unspecified organism Code(s): J18.9 - PNEUMONIA, UNSPECIFIED ORGANISM (3) Atrial fibrillation with RVR Current Visit: No Status: Acute Code(s): I48.91 - UNSPECIFIED ATRIAL FIBRILLATION (4) CAD (coronary artery disease) Current Visit: No Status: Acute Code(s): I25.10 - ATHSCL HEART DISEASE OF [place] CORONARY ARTERY W/O ANG PCTRS (5) COPD exacerbation Current Visit: No Status: Acute Code(s): J44.1 - CHRONIC OBSTRUCTIVE PULMONARY DISEASE W (ACUTE) EXACERBATION
[2022-04-28] MEDS: Sodium Chloride 0.9% 1000 ML 1,000 ML IV SCH (12:14)
[2022-04-28] MEDS: Lasix 40 MG/4 ML IV SCH ×2 (13:05→21:36)
[2022-04-28] MEDS ORDERED: Docusate Sodium 100 MG PO PRN (13:15)
[2022-04-28] MEDS: Lopressor 50 MG PO SCH ×2 (13:41→21:36)
[2022-04-28] MEDS: NORVASC 5 MG PO SCH (13:41)
[2022-04-28] MEDS: THERAGRAN MULTIVITAMIN PO SCH (13:44)
[2022-04-28] MEDS: ELIQUIS 2.5 MG TABLET PO SCH ×2 (13:44→21:36)
[2022-04-28] MEDS: Robitussin-Dm Syrup PO PRN (17:25)
[2022-04-28] MEDS: Levofloxacin 500MG/100ML D5W 500 MG/100 ML BAG IV SCH (21:36)
[2022-04-28] MEDS ORDERED: NON-FORMULARY ITEM (Apixaban*** [Eliquis 5 Mg Tablet***] 5 MG Tablet) PO SCH (22:00)
[2022-04-28] MEDS ORDERED: PROVENTIL 2.5 MG/3 ML NEB IH ONE (23:37)
[2022-04-28] MEDS ORDERED: PROVENTIL 2.5 MG/3 ML NEB IH PRN (23:39)
[2022-04-29] MEDS: Robitussin-Dm Syrup PO PRN ×4 (00:26→15:27)
[2022-04-29] MEDS: Sodium Chloride 0.9% 1000 ML 1,000 ML IV SCH ×2 (00:26→12:35)
[2022-04-29] MEDS: Ativan 2 MG/1 ML VIAL IV PRN ×4 (01:30→10:34)
[2022-04-29] MEDS: Lasix 40 MG/4 ML IV SCH ×3 (05:34→21:10)
[2022-04-29] MEDS: DUONEB 0.5-3 MG/3 ml Neb IH SCH ×4 (05:40→19:24)
[2022-04-29 06:27] LABS: Absolute Neutrophil Ct (ANC) 7.84 x10^3/uL (1.4-6.9); BASOPHIL % 0.1 % (0.0-0.4); Basophil (Absolute #) 0.01 x10^3/uL (0-0.4); Eosinophil (Absolute #) 0 x10^3/uL (0-0.5); Hematocrit 31.1 % (42-50); Hemoglobin 9.6 g/dL (12.5-18.0); IMMATURE GRAN # 0.06 x10^3u/L (0.00-0.03); IMMATURE GRAN % 0.6 % (0.00-0.4); Lymphocyte (Absolute #) 1.33 x10^3/uL (1.0-4.6); Lymphocytes % 13.1 % (24.0-44.0); Mean Cell Volume 88.1 fL (78-100); Mean Corpuscular Hemoglobin 27.2 pg (26-32); Mean Corpuscular Hgb Concent. 30.9 g/dL (32-36); Mean Platelet Volume 9.1 fL (7.5-11.0); Monocyte (Absolute #) 0.95 x10^3/uL (0.0-1.3); Monocytes % 9.3 % (0.0-12.0); Neutrophil % 76.9 % (36.0-66.0); Platelet Count 270 x10^3/uL (150-450); Red Blood Count 3.53 x10^6/uL (4.1-5.6); Red Cell Distribution Width 15.9 % (11.5-14.0); White Blood Count 10.2 x10^3/uL (4.0-10.5)
[2022-04-29 06:43] LABS: ALBUMIN 3.6 g/dL (3.5-5.0); ALKALINE PHOSPHATASE 97 U/L (38-126); ANION GAP 6.7 MEQ/L (5-15); BLOOD UREA NITROGEN 32 mg/dL (9-20); CHLORIDE 92 mmol/L (98-107); Calcium 7.8 mg/dL (8.4-10.2); Carbon Dioxide 38 mmol/L (22-30); Creatinine 1 0.89 mg/dL (0.66-1.25); EST GLOMERULAR FILTRATION RATE > 60.0 ML/MIN; Glucose 89 mg/dL (74-106); NT PRO BNP 4630 pg/mL (0-900); Potassium 3.9 mmol/L (3.5-5.1); SGOT/AST 46 U/L (17-59); SGPT/ALT 55 U/L (0-50); SODIUM 133 mmol/L (137-145); Total Protein 6.6 g/dL (6.3-8.2)
[2022-04-29] MEDS: MORPHINE SULFATE 4 MG INJ IV PRN ×2 (08:02→15:27)
[2022-04-29] MEDS: ELIQUIS 2.5 MG TABLET PO SCH ×2 (08:04→21:10)
[2022-04-29] MEDS: THERAGRAN MULTIVITAMIN PO SCH (08:04)
--- NOTE | 2022-04-29 08:05 | PCM.NOTE ---
Date and Time: 04/29/22802 Subjective Assessment: doing better, - Review of Systems Constitutional: No Fever, No Chills Eyes: No Symptoms Ears, Nose, & Throat: No Symptoms Respiratory: Cough, Orthopnea, Short Of Breath, Wheezing Cardiac: Orthopnea, PND, No Chest Pain, No Edema, No Syncope Abdominal/Gastrointestinal: No Abdominal Pain, No Nausea, No Vomiting, No Diarrhea Genitourinary Symptoms: No Dysuria Musculoskeletal: No Back Pain, No Neck Pain Skin: No Rash Neurological: No Dizziness, No Focal Weakness, No Sensory Changes Psychological: No Symptoms Endocrine: No Symptoms Hematologic/Lymphatic: No Symptoms Immunological/Allergic: No Symptoms Objective Exam General Appearance: no apparent distress, alert Neurologic Exam: alert, oriented x 3, cooperative, normal mood/affect, nml cerebellar function, sensation nml, No motor deficits Skin Exam: normal color, warm, dry Eye Exam: PERRL, EOMI, eyes nml inspection Ears, Nose, Throat Exam: normal ENT inspection, pharynx normal, moist mucous membranes Neck Exam: normal inspection, non-tender, supple, full range of motion Respiratory Exam: diminished breath sounds, crackles/rales, rhonchi, wheezing, No respiratory distress Cardiovascular Exam: regular rate/rhythm, normal heart sounds Gastrointestinal/Abdomen Exam: soft, No tenderness, No mass Extremity Exam: normal inspection, normal range of motion Back Exam: normal inspection, normal range of motion, No CVA tenderness, No vertebral tenderness Male Genitalia Exam: deferred Rectal Exam: deferred OBJECTIVE DATA Vital Signs: Vital Signs - 24 hr Temp Pulse Resp BP BP Pulse Ox 04/29/22 08:00 99 H 24 114/73 97 04/29/22 07:24 85 04/29/22 06:31 85 24 111/67 97 04/29/22 05:40 90 16 98 04/29/22 05:27 92 H 04/29/22 04:33 94 H 23 95/56 93 L 04/29/22 03:33 94 H 04/29/22 02:35 87 20 111/58 98 04/29/22 01:13 79 20 98/60 97 04/29/22 00:00 83 04/28/22 23:54 97.8 F 87 18 99/78 98 04/28/22 23:41 84 20 94 L 04/28/22 23:31 91 H 20 99/78 01/21/23 22:50 90 16 117/80 100 04/28/22 21:44 106 H 18 118/63 100 04/28/22 20:42 114 H 18 100 04/28/22 19:27 97.6 F 105 H 18 115/73 99 04/28/22 18:16 98 H 18 99 04/28/22 17:52 101 H 18 106/65 99 04/28/22 15:56 97.6 F 98 H 15 108/67 99 04/28/22 14:29 98 H 22 99 04/28/22 14:00 92 H 23 101/59 94 L 04/28/22 12:00 108 H 04/28/22 11:51 98.0 F 108 H 22 135/79 92 L 04/28/22 10:42 94 L 04/28/22 10:30 92 H 20 99 04/28/22 09:57 88 25 H 131/77 99 04/28/22 09:00 96 H 24 131/77 Pain Assessment - Last Documented Pain Intensity 0 Pain Scale Used 0-10 Pain Scale Intake and Output: Intake & Output 04/26/22 04/27/22 04/28/22 04/29/22 11:59 11:59 11:59 11:59 Intake Total 40 1455 Output Total 3925 3500 Balance -3885 -4 Weight 76 kg Lab Results: Lab Results-Last 24 Hours 04/29/22 04/29/22 Range/Units 06:06 06:06 WBC 10.2 (4.0-10.5) x10^3/uL RBC 3.53 L (4.1-5.6) x10^6/uL Hgb 9.6 L (12.5-18.0) g/dL Hct 31.1 L (42-50) % MCV 88.1 (78-100) fL MCH 27.2 (26-32) pg MCHC 30.9 L (32-36) g/dL RDW 15.9 H (11.5-14.0) % Plt Count 270 (150-450) x10^3/uL MPV 9.1 (7.5-11.0) fL Gran % 76.9 H (36.0-66.0) % Immature Gran % (Auto) 0.6 H (0.00-0.4) % Nucleat RBC Rel Count 0.0 (0.00-0.1) % Eos # (Auto) 0 (0-0.5) x10^3/uL Immature Gran # (Auto) 0.06 H (0.00-0.03) x10^3u/L Absolute Lymphs (auto) 1.33 (1.0-4.6) x10^3/uL Absolute Monos (auto) 0.95 (0.0-1.3) x10^3/uL Absolute Nucleated RBC 0.00 (0.00-0.01) x10^3u/L Lymphocytes % 13.1 L (24.0-44.0) % Monocytes % 9.3 (0.0-12.0) % Eosinophils % 0.0 (0.00-5.0) % Basophils % 0.1 (0.0-0.4) % Absolute Granulocytes 7.84 H (1.4-6.9) x10^3/uL Basophils # 0.01 (0-0.4) x10^3/uL Sodium 133 L (137-145) mmol/L Potassium 3.9 (3.5-5.1) mmol/L Chloride 92 L (98-107) mmol/L Carbon Dioxide 38 H (22-30) mmol/L Anion Gap 6.7 (5-15) MEQ/L BUN 32 H (9-20) mg/dL Creatinine 0.89 (0.66-1.25) mg/dL Estimated GFR > 60.0 ML/MIN Glucose 89 (74-106) mg/dL Calcium 7.8 L (8.4-10.2) mg/dL Total Bilirubin 0.50 (0.2-1.3) mg/dL AST 46 (17-59) U/L ALT 55 H (0-50) U/L Alkaline Phosphatase 97 (38-126) U/L NT-Pro-B Natriuret Pep 4630 H (0-900) pg/mL Serum Total Protein 6.6 (6.3-8.2) g/dL Albumin 3.6 (3.5-5.0) g/dL Radiology Exams: Radiology Procedures Category Date Time Status CHEST 1 VIEW (PORTABLE) Stat Exams 04/27/22 18:37 Completed Assessment/Plan (1) CHF (congestive heart failure) Current Visit: Yes Status: Acute Qualifiers: Heart failure type: combined systolic and diastolic Heart failure chronicity: acute on chronic Qualified Code(s): I50.43 - Acute on chronic combined systolic (congestive) and diastolic (congestive) heart failure Assessment & Plan: Chief Complaint Diagnosis c/o severe shortness of breath for 1 day Allergies Allergy/AdvReac Type Severity Reaction Status Date / Time Penicillins Allergy Severe Anaphylactic Verified 04/27/22 19:07 Reaction Vital Signs (Last 24 hours) Temp Pulse Resp BP BP Pulse Ox 04/29/22 08:00 99 H 24 114/73 97 04/29/22 07:24 85 04/29/22 06:31 85 24 111/67 97 04/29/22 05:40 90 16 98 04/29/22 05:27 92 H 04/29/22 04:33 94 H 23 95/56 93 L 04/29/22 03:33 94 H 04/29/22 02:35 87 20 111/58 98 04/29/22 01:13 79 20 98/60 97 04/29/22 00:00 83 04/28/22 23:54 97.8 F 87 18 99/78 98 04/28/22 23:41 84 20 94 L 04/28/22 23:31 91 H 20 99/78 04/28/22 22:50 90 16 117/80 100 04/28/22 21:44 106 H 18 118/63 100 04/28/22 20:42 114 H 18 100 04/28/22 19:27 97.6 F 105 H 18 115/73 99 04/28/22 18:16 98 H 18 99 04/28/22 17:52 101 H 18 106/65 99 04/28/22 15:56 97.6 F 98 H 15 108/67 99 04/28/22 14:29 98 H 22 99 04/28/22 14:00 92 H 23 101/59 94 L 04/28/22 12:00 108 H 04/28/22 11:51 98.0 F 108 H 22 135/79 92 L 04/28/22 10:42 94 L 04/28/22 10:30 92 H 20 99 04/28/22 09:57 88 25 H 131/77 99 04/28/22 09:00 96 H 24 131/77 Home Medications Medication Instructions Recorded Confirmed Last Taken Type Docusate Sodium [Colace] 100 mg PO BID PRN 04/28/22 04/28/22 Unknown History Metoprolol Tartrate 50 mg 50 mg PO BID 04/28/22 04/28/22 Unknown History [Lopressor 50 MG] Multivit-Min/FA/Lycopen/Lutein 1 tab PO DAILY 04/28/22 04/28/22 Unknown History [Centrum Silver Tablet] Current Medications Generic Name Dose Route Start Last Admin Trade Name Freq PRN Reason Stop Dose Admin Acetaminophen 650 mg 04/28/22 02:06 Acetaminophen 325 Mg Tablet PO 05/28/22 02:05 Q4H PRN PRN PAIN, FEVER, HEADACHE Albuterol Sulfate 4 puff 04/28/22 02:26 Albuterol Common Canister Inhaler 05/28/22 02:25 Q4H PRN PRN SHORTNESS OF BREATH/WHEEZING Albuterol Sulfate 2.5 mg 04/28/22 23:39 04/28/22 23:41 Albuterol Sulfate 2.5 Mg/3 Ml [facility] 05/28/22 23:38 2.5 mg Q4H PRN PRN Administration SHORTNESS OF BREATH/WHEEZING Albuterol/Ipratropium 3 ml 04/28/22 07:00 04/29/22 05:40 Ipratropium/Albuterol Sulfate 3 Ml Ampul.[facility] 05/28/22 06:59 3 ml QIDRT VERNA Administration Amlodipine Besylate 5 mg 04/28/22 13:00 04/28/22 13:41 Amlodipine Besylate 5 Mg Tablet PO 05/28/22 12:59 Not Given DAILY VERNA Apixaban 5 mg 04/28/22 14:00 04/28/22 21:36 Apixaban 2.5 Mg Tablet PO 05/28/22 13:59 5 mg BID VERNA Administration Docusate Sodium 100 mg 04/28/22 13:15 Docusate Sodium 100 Mg Capsule PO 05/28/22 13:14 BID PRN PRN Furosemide 40 mg 04/28/22 14:00 04/29/22 05:34 Furosemide 40 Mg/4 Ml Vial IV 05/28/22 13:59 40 mg Q8HT VERNA Administration Guaifenesin/Dextromethorphan 10 ml 04/28/22 17:23 04/29/22 04:27 Guaifenesin/D-Methorphan Hb 118 Ml Syrup PO 05/28/22 17:22 10 ml Q4H PRN PRN Administration COUGH Levofloxacin/Dextrose 500 mg in 100 mls @ 100 mls/hr 04/28/22 22:00 04/28/22 21:36 Levofloxacin 500mg/100ml D5w IV 05/28/22 21:59 100 mls/hr QPM VERNA Administration Sodium Chloride 1,000 mls @ 70 mls/hr 04/28/22 11:45 04/29/22 00:26 Sodium Chloride 0.9% 1000 Ml IV 05/28/22 11:44 70 mls/hr .[id number] VERNA Administration Lorazepam 1 mg 04/28/22 02:06 04/29/22 05:27 Lorazepam 2 Mg/1 Ml 2 Mg Vial IV 05/28/22 02:05 1 mg Q2H PRN PRN Administration ANXIETY/AGITATION Metoprolol Tartrate 50 mg 04/28/22 13:00 04/28/22 21:36 Metoprolol Tartrate 50 Mg Tablet PO 05/28/22 12:59 50 mg BID VERNA Administration Morphine Sulfate 4 mg 04/28/22 09:26 04/28/22 09:41 Morphine Sulfate 4 Mg/Ml Injection IV 05/03/22 09:25 4 mg Q4H PRN PRN Administration PAIN Multivitamins Therapeutic 1 tab 04/28/22 14:00 04/28/22 13:44 Multivitamins,Therapeutic 1 Tab Tab PO 05/28/22 13:59 1 tab DAILY VERNA Administration Ondansetron HCl 4 mg 04/28/22 02:06 Ondansetron Hcl 4 Mg/2 Ml Vial IV 05/28/22 02:05 Q6H PRN PRN NAUSEA/VOMITING Discontinued Medications Generic Name Dose Route Start Last Admin Trade Name Freq PRN Reason Stop Dose Admin Albuterol Sulfate Confirm 04/27/22 18:30 Albuterol Sulfate 2.5 Mg/3 Ml Neb Administered 04/27/22 18:31 Dose 2.5 mg IH .STK-MED ONE Albuterol Sulfate 2.5 mg 04/27/22 18:35 04/27/22 18:35 Albuterol Sulfate 2.5 Mg/3 Ml Neb IH 04/27/22 18:36 2.5 mg STAT ONE Administration Albuterol Sulfate Confirm 04/28/22 23:37 Albuterol Sulfate 2.5 Mg/3 Ml Neb Administered 04/28/22 23:38 Dose 2.5 mg IH .STK-MED ONE Albuterol/Ipratropium Confirm 04/28/22 01:50 Ipratropium/Albuterol Sulfate 3 Ml Ampul.Neb Administered 04/28/22 01:51 Dose 3 ml IH .STK-MED ONE Furosemide 40 mg 04/27/22 18:38 04/27/22 19:06 Furosemide 40 Mg/4 Ml Vial IV 04/27/22 18:39 40 mg STAT ONE Administration Furosemide Confirm 04/27/22 18:42 Furosemide 40 Mg/4 Ml Vial Administered 04/27/22 18:43 Dose 40 mg .ROUTE .STK-MED ONE Furosemide 40 mg 04/28/22 02:06 04/28/22 03:21 Furosemide 40 Mg/4 Ml Vial IV 05/28/22 02:05 40 mg Q8H VERNA Administration Levofloxacin/Dextrose 500 mg in 100 mls @ 100 mls/hr 04/27/22 19:29 04/27/22 20:41 Levofloxacin 500mg/100ml D5w IV 04/27/22 20:28 Infused STAT STA Infusion Levofloxacin/Dextrose Confirm 04/27/22 19:33 Levofloxacin 500mg/100ml D5w Administered 04/27/22 19:34 Dose 500 mg in 100 mls @ ud IV .STK-MED ONE Lorazepam 1 mg 04/27/22 18:37 04/27/22 19:06 Lorazepam 2 Mg/1 Ml 2 Mg Vial IV 04/27/22 18:38 1 mg STAT ONE Administration Lorazepam Confirm 04/27/22 18:41 Lorazepam 2 Mg/1 Ml 2 Mg Vial Administered 04/27/22 18:42 Dose 2 mg .ROUTE .STK-MED ONE Lorazepam 1 mg 04/27/22 20:10 04/27/22 20:15 Lorazepam 2 Mg/1 Ml 2 Mg Vial IV 04/27/22 20:11 1 mg STAT ONE Administration Lorazepam Confirm 04/27/22 20:14 Lorazepam 2 Mg/1 Ml 2 Mg Vial Administered 04/27/22 20:15 Dose 2 mg .ROUTE .STK-MED ONE Lorazepam 1 mg 04/27/22 22:09 04/27/22 22:11 Lorazepam 2 Mg/1 Ml 2 Mg Vial IV 04/27/22 22:10 1 mg STAT ONE Administration Lorazepam Confirm 04/27/22 22:11 Lorazepam 2 Mg/1 Ml 2 Mg Vial Administered 04/27/22 22:12 Dose 2 mg .ROUTE .STK-MED ONE Lorazepam 1 mg 04/28/22 00:01 04/28/22 00:57 Lorazepam 2 Mg/1 Ml 2 Mg Vial IV 04/28/22 00:02 1 mg STAT ONE Administration Lorazepam Confirm 04/28/22 00:53 Lorazepam 2 Mg/1 Ml 2 Mg Vial Administered 04/28/22 00:54 Dose 2 mg .ROUTE .STK-MED ONE Metoprolol Tartrate 5 mg 04/27/22 19:44 04/27/22 19:49 Metoprolol Tartrate 5 Mg/5 Ml Vial IV 04/27/22 19:45 5 mg STAT ONE Administration Metoprolol Tartrate Confirm 04/27/22 19:48 Metoprolol Tartrate 5 Mg/5 Ml Vial Administered 04/27/22 19:49 Dose 5 mg IV .STK-MED ONE Intake & Output (Last 24 hours) 04/26/22 04/27/22 04/28/22 04/29/22 11:59 11:59 11:59 11:59 Intake Total 40 1455 Output Total 3920 3500 Balance -3885 -2040 Weight 76 kg Laboratory Results (Last 24 hours) 04/29/22 04/29/22 06:06 06:06 WBC 10.2 RBC 3.53 L Hgb 9.6 L Hct 31.1 L MCV 88.1 MCH 27.2 MCHC 30.9 L RDW 15.9 H Plt Count 270 MPV 9.1 Gran % 76.9 H Immature Gran % (Auto) 0.6 H Nucleat RBC Rel Count 0.0 Eos # (Auto) 0 Immature Gran # (Auto) 0.06 H Absolute Lymphs (auto) 1.33 Absolute Monos (auto) 0.95 Absolute Nucleated RBC 0.00 Lymphocytes % 13.1 L Monocytes % 9.3 Eosinophils % 0.0 Basophils % 0.1 Absolute Granulocytes 7.84 H Basophils # 0.01 Sodium 133 L Potassium 3.9 Chloride 92 L Carbon Dioxide 38 H Anion Gap 6.7 BUN 32 H Creatinine 0.89 Estimated GFR > 60.0 Glucose 89 Calcium 7.8 L Total Bilirubin 0.50 AST 46 ALT 55 H Alkaline Phosphatase 97 NT-Pro-B Natriuret Pep 4630 H Serum Total Protein 6.6 Albumin 3.6 Orders (Last 24 hours) Category Date Time Status Cardio-Pulmonary Rehab .as ordered Cons 04/30/22 09:00 Active Infection Control Consult ROUTINE Cons 04/30/22 09:00 Active Food Service Technician/Discharge Plan ROUTINE Cons 04/30/22 09:00 Active House Regular Diet Diet 04/29/22 Lunch Active CBC W DIFF AM.LAB Lab 04/29/22 06:06 Completed CMP AM.LAB Lab 04/29/22 06:06 Completed NT PRO BNP Routine Lab 04/29/22 06:06 Completed Albuterol 2.5 mg/3 ml Neb [Proventil 2.5 mg/3 ml Neb Med 04/28/22 23:37 Discontinued ] 2.5 mg IH .STK-MED ONE Albuterol 2.5 mg/3 ml Neb [Proventil 2.5 mg/3 ml Neb Med 04/28/22 23:39 Active ] 2.5 mg IH Q4H PRN PRN Amlodipine Besylate 5 mg [Norvasc 5 mg] Med 04/28/22 13:00 Active 5 mg PO DAILY Apixaban [Eliquis 2.5 mg Tablet] Med 04/28/22 14:00 Active 5 mg PO BID Docusate Sodium 100 mg [Docusate Sodium 100 MG] Med 04/28/22 13:15 Active 100 mg PO BID PRN PRN Furosemide 40 mg/4 ml [Lasix 40 MG/4 ML] Med 04/28/22 14:00 Active 40 mg IV Q8HT Guaifenesin/D-Methorphan Hb [Robitussin-Dm Syrup] Med 04/28/22 17:23 Active 10 ml PO Q4H PRN PRN Levofloxacin [Levofloxacin 500MG/100ML D5W] Med 04/28/22 22:00 Active 500 mg in 100 ml IV QPM Metoprolol Tartrate 50 mg [Lopressor 50 MG] Med 04/28/22 13:00 Active 50 mg PO BID Morphine Sulfate 4 mg Inj Med 04/28/22 09:26 Active 4 mg IV Q4H PRN PRN Multivitamins,Therapeutic Tab* [Theragran Multivitamin* Med 04/28/22 14:00 Active ] 1 tab PO DAILY NaCl 0.9% 1000 ml [Sodium Chloride 0.9% 1000 ML] 1,000 Med 04/28/22 11:45 Active ml IV 70 mls/hr ST Screen per Nursing Assess ONCE ST 04/30/22 09:00 Active Transfer Order Routine Transfer 04/29/22 Completed Patient Care Notes (Last 24 hours) 04/29/22 07:49 Nursing Note by Ysabel Martinez dr at bedside rounding on pt. order given to downgrade to [facility]. Initialized on 04/29/22 07:49 - END OF NOTE 04/28/22 21:46 Nursing Note by Loren Sevilla O2 decreased to 4L oxymask d/t patient's O2 sat 100% on 5L oxymask for the past 1 hour and patient's hx of CO2 retention/COPD. Addendum entered by Loren Sevilla 04/28/22 23:02: O2 decreased to 3L oxymask. O2 sat 100%. Respirations unlabored. This nurse contacted RT Alex and notified her of the change. Initialized on 04/28/22 21:46 - END OF NOTE 04/28/22 21:40 Nursing Note by Loren Sevilla Patient experiencing S/S aspiration (wet coughing) following sips of water from cup. Patient kept NPO d/t confusion at this time. Initialized on 04/28/22 21:40 - END OF NOTE 04/28/22 11:45 (created 04/28/22 13:08) Nursing Note by Ysabel Martinez dr at bedside, rounding on pt. new orders for ns @ 70cc/hr Initialized on 04/28/22 13:08 - END OF NOTE 04/28/22 10:21 Nursing Note by Ysabel Martinez restraints removed. Initialized on 04/28/22 10:21 - END OF NOTE 04/28/22 09:31 Nursing Note by Ysabel Martinez pt restlass and agitated. pulling at facemask. grimacing with movement, dr flores updated and new order for morphine ivp given. Initialized on 04/28/22 09:31 - END OF NOTE Code(s): I50.9 - HEART FAILURE, UNSPECIFIED (2) Pneumonia Current Visit: Yes Status: Acute Qualifiers: Pneumonia type: due to unspecified organism Laterality: bilateral Lung location: lower lobe of lung Qualified Code(s): J18.9 - Pneumonia, unspecified organism Assessment & Plan: Medication Report Albuterol Sulfate (Albuterol Sulfate 2.5 Mg/3 Ml Neb) 2.5 mg IH Q4H PRN PRN PRN Reason: SHORTNESS OF BREATH/WHEEZING Stop: 05/28/22 23:38 Last Admin: 04/28/22 23:41 Dose: 2.5 mg Documented by: AM Nebulizer Treatment Document 04/28/22 23:41 AM (Rec: 04/28/22 23:41 AM [id number]) Therapy Aerosol Therapy Subsequent Aerosol Therapy Treatment Method Nebulizer,Mouthpiece Treatment Tolerance Good Albuterol/Ipratropium (Ipratropium/Albuterol Sulfate 3 Ml Ampul.Neb) 3 ml IH QIDRT [facility] Stop: 05/28/22 06:59 Last Admin: 04/29/22 05:40 Dose: 3 ml Documented by: AM Nebulizer Treatment Document 04/29/22 05:40 AM (Rec: 04/29/22 06:10 AM [id number]) Therapy Aerosol Therapy Initial Aerosol Therapy Treatment Method Nebulizer,Mouthpiece Treatment Tolerance Good Amlodipine Besylate (Amlodipine Besylate 5 Mg Tablet) 5 mg PO DAILY [facility] Stop: 05/28/22 12:59 Last Admin: 04/28/22 13:41 Dose: Not Given Documented by: CECILIA Non-Admin Reason: Decreased Blood Pressure Apixaban (Apixaban 2.5 Mg Tablet) 5 mg PO BID [facility] Stop: 05/28/22 13:59 Last Admin: 04/28/22 21:36 Dose: 5 mg Documented by: Furosemide (Furosemide 40 Mg/4 Ml Vial) 40 mg IV Q8HT [facility] Stop: 05/28/22 13:59 Last Admin: 04/29/22 05:34 Dose: 40 mg Documented by: CHRISTINE Guaifenesin/Dextromethorphan (Guaifenesin/D-Methorphan Hb 118 Ml Syrup) 10 ml PO Q4H PRN PRN PRN Reason: COUGH Stop: 05/28/22 17:22 Last Admin: 04/29/22 04:27 Dose: 10 ml Documented by: CHRISTINE Levofloxacin/Dextrose (Levofloxacin 500mg/100ml D5w) 500 mg in 100 mls @ 100 mls/hr IV QPM [facility] Stop: 05/28/22 21:59 Last Admin: 04/28/22 21:36 Dose: 100 mls/hr Documented by: Sodium Chloride (Sodium Chloride 0.9% 1000 Ml) 1,000 mls @ 70 mls/hr IV .[id number] [facility] Stop: 05/28/22 11:44 Last Admin: 04/29/22 00:26 Dose: 70 mls/hr Documented by: Infusion/Titration Document 04/29/22 00:26 MT (Rec: 04/29/22 00:26 MT [id number]) Dosing & Rate IV Rate 70 Increase/Decrease Started/Running Cumulative Dose Not Applicable IV Intake Container Volume 1,000 Cumulative Intake (Rx) 854 Volume Adjustment/Waste 0 Lorazepam (Lorazepam 2 Mg/1 Ml 2 Mg Vial) 1 mg IV Q2H PRN PRN PRN Reason: ANXIETY/AGITATION Stop: 05/28/22 02:05 Last Admin: 04/29/22 05:27 Dose: 1 mg Documented by: CHRISTINE GOMEZ Patient Reassessment Document 04/29/22 05:27 (Rec: 04/29/22 05:28 [id number]) Vital Signs Pulse Rate (60-90) 92 Patient Reassessment Sedation Scale Dozing Intermittently Metoprolol Tartrate (Metoprolol Tartrate 50 Mg Tablet) 50 mg PO BID [facility] Stop: 05/28/22 12:59 Last Admin: 04/28/22 21:36 Dose: 50 mg Documented by: Morphine Sulfate (Morphine Sulfate 4 Mg/Ml Injection) 4 mg IV Q4H PRN PRN PRN Reason: PAIN Stop: 05/03/22 09:25 Last Admin: 04/28/22 09:41 Dose: 4 mg Documented by: CECILIA MAR PAIN Document 04/28/22 09:41 CECILIA (Rec: 04/28/22 09:41 CECILIA [id number]) Reassesment Pain Scale Used FLACC Re-Assess: Pain Reassessment Document 04/28/22 10:11 CECILIA (Rec: 04/28/22 10:57 CECILIA [id number]) Pain Description Pain Scale Used 0-10 Pain Scale Multivitamins Therapeutic (Multivitamins,Therapeutic 1 Tab Tab) 1 tab PO DAILY VERNA Stop: 05/28/22 13:59 Last Admin: 04/28/22 13:44 Dose: 1 tab Documented by: CECILIA Discontinued Medications Albuterol Sulfate (Albuterol Sulfate 2.5 Mg/3 Ml Neb) 2.5 mg IH STAT ONE Stop: 04/27/22 18:36 Last Admin: 04/27/22 18:35 Dose: 2.5 mg Documented by: SALO Nebulizer Treatment Document 04/27/22 18:35 SALO (Rec: 04/27/22 20:57 SALO [id number]) Therapy Aerosol Therapy Initial Aerosol Therapy Treatment Method Nebulizer,Mouthpiece Treatment Tolerance Poor Supplies Nebulizer Yes Furosemide (Furosemide 40 Mg/4 Ml Vial) 40 mg IV STAT ONE Stop: 04/27/22 18:39 Last Admin: 04/27/22 19:06 Dose: 40 mg Documented by: AZALEA Med Admininistration (IV,IVP) Document 04/27/22 19:06 AZALEA (Rec: 04/27/22 19:06 AZALEA [id number]) Type of Administration Initial IV Push Yes Furosemide (Furosemide 40 Mg/4 Ml Vial) 40 mg IV Q8H VERNA Stop: 05/28/22 02:05 Last Admin: 04/28/22 03:21 Dose: 40 mg Documented by: Levofloxacin/Dextrose (Levofloxacin 500mg/100ml D5w) 500 mg in 100 mls @ 100 mls/hr IV STAT STA Stop: 04/27/22 20:28 Last Infusion: 04/27/22 20:41 Dose: 0 ml/hr, 0 mls/hr Documented by: DQ Infusion/Titration Document 04/27/22 20:41 DQ (Rec: 04/27/22 20:41 DQ [id number]) Dosing & Rate Titration Dose 0 IV Rate 0 Increase/Decrease Infused Cumulative Dose 500 IV Intake Container Volume 0 Infusion Intake 100 Cumulative Intake (Bag) 100 Cumulative Intake (Rx) 100 Volume Adjustment/Waste 0 Lorazepam (Lorazepam 2 Mg/1 Ml 2 Mg Vial) 1 mg IV STAT ONE Stop: 04/27/22 18:38 Last Admin: 04/27/22 19:06 Dose: 1 mg Documented by: KB Med Admininistration (IV,IVP) Document 04/27/22 19:06 KB (Rec: 04/27/22 19:06 KB [id number]) Type of Administration Initial IV Push No IV Push-Addtl Different Drug Yes Patient Med Reassessment Document 04/27/22 19:06 KB (Rec: 04/27/22 19:06 KB [id number]) Patient Assessment Sedation Scale Wide Awake Lorazepam (Lorazepam 2 Mg/1 Ml 2 Mg Vial) 1 mg IV STAT ONE Stop: 04/27/22 20:11 Last Admin: 04/27/22 20:15 Dose: 1 mg Documented by: DQ Med Admininistration (IV,IVP) Document 04/27/22 20:15 DQ (Rec: 04/27/22 20:15 DQ [id number]) Type of Administration Initial IV Push No Lorazepam (Lorazepam 2 Mg/1 Ml 2 Mg Vial) 1 mg IV STAT ONE Stop: 04/27/22 22:10 Last Admin: 04/27/22 22:11 Dose: 1 mg Documented by: DQ Med Admininistration (IV,IVP) Document 04/27/22 22:11 DQ (Rec: 04/27/22 22:11 DQ [id number]) Type of Administration Initial IV Push No Lorazepam (Lorazepam 2 Mg/1 Ml 2 Mg Vial) 1 mg IV STAT ONE Stop: 04/28/22 00:02 Last Admin: 04/28/22 00:57 Dose: 1 mg Documented by: MM Med Admininistration (IV,IVP) Document 04/28/22 00:57 MM (Rec: 04/28/22 00:57 MM [id number]) Type of Administration Initial IV Push No IV Push-Addtl Same Drug >30min Yes Patient Med Reassessment Document 04/28/22 00:57 MM (Rec: 04/28/22 00:57 MM [id number]) Patient Assessment Sedation Scale Wide Awake Metoprolol Tartrate (Metoprolol Tartrate 5 Mg/5 Ml Vial) 5 mg IV STAT ONE Stop: 04/27/22 19:45 Last Admin: 04/27/22 19:49 Dose: 5 mg Documented by: MM Med Admininistration (IV,IVP) Document 04/27/22 19:49 MM (Rec: 04/27/22 19:49 MM [id number]) Type of Administration Initial IV Push No IV Push-Addtl Different Drug Yes Last Vital Signs Temp 97.8 F 04/28/22 23:54 Pulse 99 H 04/29/22 08:00 Resp 24 04/29/22 08:00 BP 114/73 04/29/22 08:00 Pulse Ox 97 04/29/22 08:00 Allergies Penicillins Allergy (Severe, Verified 04/27/22 19:07) Anaphylactic Reaction Active Medications Acetaminophen (Acetaminophen 325 Mg Tablet) 650 mg PO Q4H PRN PRN PRN Reason: PAIN, FEVER, HEADACHE Stop: 05/28/22 02:05 Albuterol Sulfate (Albuterol Common Canister Inhaler) 4 puff IH Q4H PRN PRN PRN Reason: SHORTNESS OF BREATH/WHEEZING Stop: 05/28/22 02:25 Albuterol Sulfate (Albuterol Sulfate 2.5 Mg/3 Ml Neb) 2.5 mg IH Q4H PRN PRN PRN Reason: SHORTNESS OF BREATH/WHEEZING Stop: 05/28/22 23:38 Last Admin: 04/28/22 23:41 Dose: 2.5 mg Albuterol/Ipratropium (Ipratropium/Albuterol Sulfate 3 Ml Ampul.Neb) 3 ml IH QIDRT [facility] Stop: 05/28/22 06:59 Last Admin: 04/29/22 05:40 Dose: 3 ml Amlodipine Besylate (Amlodipine Besylate 5 Mg Tablet) 5 mg PO DAILY [facility] Stop: 05/28/22 12:59 Last Admin: 04/28/22 13:41 Dose: Not Given Apixaban (Apixaban 2.5 Mg Tablet) 5 mg PO BID [facility] Stop: 05/28/22 13:59 Last Admin: 04/28/22 21:36 Dose: 5 mg Docusate Sodium (Docusate Sodium 100 Mg Capsule) 100 mg PO BID PRN PRN Stop: 05/28/22 13:14 Furosemide (Furosemide 40 Mg/4 Ml Vial) 40 mg IV Q8HT [facility] Stop: 05/28/22 13:59 Last Admin: 04/29/22 05:34 Dose: 40 mg Guaifenesin/Dextromethorphan (Guaifenesin/D-Methorphan Hb 118 Ml Syrup) 10 ml PO Q4H PRN PRN PRN Reason: COUGH Stop: 05/28/22 17:22 Last Admin: 04/29/22 04:27 Dose: 10 ml Levofloxacin/Dextrose (Levofloxacin 500mg/100ml D5w) 500 mg in 100 mls @ 100 mls/hr IV QPM [facility] Stop: 05/28/22 21:59 Last Admin: 04/28/22 21:36 Dose: 100 mls/hr Sodium Chloride (Sodium Chloride 0.9% 1000 Ml) 1,000 mls @ 70 mls/hr IV .[id number] [facility] Stop: 05/28/22 11:44 Last Admin: 04/29/22 00:26 Dose: 70 mls/hr Lorazepam (Lorazepam 2 Mg/1 Ml 2 Mg Vial) 1 mg IV Q2H PRN PRN PRN Reason: ANXIETY/AGITATION Stop: 05/28/22 02:05 Last Admin: 04/29/22 05:27 Dose: 1 mg Metoprolol Tartrate (Metoprolol Tartrate 50 Mg Tablet) 50 mg PO BID [facility] Stop: 05/28/22 12:59 Last Admin: 04/28/22 21:36 Dose: 50 mg Morphine Sulfate (Morphine Sulfate 4 Mg/Ml Injection) 4 mg IV Q4H PRN PRN PRN Reason: PAIN Stop: 05/03/22 09:25 Last Admin: 04/28/22 09:41 Dose: 4 mg Multivitamins Therapeutic (Multivitamins,Therapeutic 1 Tab Tab) 1 tab PO DAILY [facility] Stop: 05/28/22 13:59 Last Admin: 04/28/22 13:44 Dose: 1 tab Ondansetron HCl (Ondansetron Hcl 4 Mg/2 Ml Vial) 4 mg IV Q6H PRN PRN PRN Reason: NAUSEA/VOMITING Stop: 05/28/22 02:05 Intake & Output 04/28/22 04/29/22 11:59 11:59 Intake Total 40 1455 Output Total 3928 3100 Balance -3885 -5 Weight 76 kg Orders 04/28/22 09:26 Morphine Sulfate 4 mg Inj 4 mg IV Q4H PRN PRN 04/28/22 11:45 NaCl 0.9% 1000 ml [Sodium Chloride 0.9% 1000 ML] 1,000 ml IV 70 mls/hr 04/28/22 13:00 Amlodipine Besylate 5 mg [Norvasc 5 mg] 5 mg PO DAILY Metoprolol Tartrate 50 mg [Lopressor 50 MG] 50 mg PO BID 04/28/22 13:15 Docusate Sodium 100 mg [Docusate Sodium 100 MG] 100 mg PO BID PRN PRN 04/28/22 14:00 Apixaban [Eliquis 2.5 mg Tablet] 5 mg PO BID Multivitamins,Therapeutic Tab* [Theragran Multivitamin] 1 tab PO DAILY 04/28/22 17:23 Guaifenesin/D-Methorphan Hb [Robitussin-Dm Syrup] 10 ml PO Q4H PRN PRN 04/28/22 23:39 Albuterol 2.5 mg/3 ml Neb [Proventil 2.5 mg/3 ml Neb] 2.5 mg IH Q4H PRN PRN 04/29/22 Lunch House Regular Diet 04/30/22 09:00 Cardio-Pulmonary Rehab .as ordered Infection Control Consult ROUTINE Food Service Technician/Discharge Plan ROUTINE ST Screen per Nursing Assess ONCE Lab Tests 04/29/22 04/29/22 06:06 06:06 WBC 10.2 RBC 3.53 L Hgb 9.6 L Hct 31.1 L MCV 88.1 MCH 27.2 MCHC 30.9 L RDW 15.9 H Plt Count 270 MPV 9.1 Gran % 76.9 H Immature Gran % (Auto) 0.6 H Nucleat RBC Rel Count 0.0 Eos # (Auto) 0 Immature Gran # (Auto) 0.06 H Absolute Lymphs (auto) 1.33 Absolute Monos (auto) 0.95 Absolute Nucleated RBC 0.00 Lymphocytes % 13.1 L Monocytes % 9.3 Eosinophils % 0.0 Basophils % 0.1 Absolute Granulocytes 7.84 H Basophils # 0.01 Sodium 133 L Potassium 3.9 Chloride 92 L Carbon Dioxide 38 H Anion Gap 6.7 BUN 32 H Creatinine 0.89 Estimated GFR > 60.0 Glucose 89 Calcium 7.8 L Total Bilirubin 0.50 AST 46 ALT 55 H Alkaline Phosphatase 97 NT-Pro-B Natriuret Pep 4630 H Serum Total Protein 6.6 Albumin 3.6 Code(s): J18.9 - PNEUMONIA, UNSPECIFIED ORGANISM (3) Atrial fibrillation with RVR Current Visit: Yes Status: Chronic Code(s): I48.91 - UNSPECIFIED ATRIAL FIBRILLATION (4) CAD (coronary artery disease) Current Visit: Yes Status: Chronic Qualifiers: Coronary Disease-Associated Artery/Lesion type: [place] artery [place] vs. transplanted heart: [place] heart Associated angina: unspecified whether angina present Qualified Code(s): I25.10 - Atherosclerotic heart disease of [place] coronary artery without angina pectoris Code(s): I25.10 - ATHSCL HEART DISEASE OF [place] CORONARY ARTERY W/O ANG PCTRS (5) COPD exacerbation Current Visit: Yes Status: Acute Assessment & Plan: Medication Report Albuterol Sulfate (Albuterol Sulfate 2.5 Mg/3 Ml Neb) 2.5 mg IH Q4H PRN PRN PRN Reason: SHORTNESS OF BREATH/WHEEZING Stop: 05/28/22 23:38 Last Admin: 04/28/22 23:41 Dose: 2.5 mg Documented by: AM Nebulizer Treatment Document 04/28/22 23:41 AM (Rec: 04/28/22 23:41 AM [id number]) Therapy Aerosol Therapy Subsequent Aerosol Therapy Treatment Method Nebulizer,Mouthpiece Treatment Tolerance Good Albuterol/Ipratropium (Ipratropium/Albuterol Sulfate 3 Ml Ampul.Neb) 3 ml IH QIDRT VERNA Stop: 05/28/22 06:59 Last Admin: 04/29/22 05:40 Dose: 3 ml Documented by: AM Nebulizer Treatment Document 04/29/22 05:40 AM (Rec: 04/29/22 06:10 AM [id number]) Therapy Aerosol Therapy Initial Aerosol Therapy Treatment Method Nebulizer,Mouthpiece Treatment Tolerance Good Amlodipine Besylate (Amlodipine Besylate 5 Mg Tablet) 5 mg PO DAILY [facility] Stop: 05/28/22 12:59 Last Admin: 04/28/22 13:41 Dose: Not Given Documented by: CECILIA Non-Admin Reason: Decreased Blood Pressure Apixaban (Apixaban 2.5 Mg Tablet) 5 mg PO BID VERNA Stop: 05/28/22 13:59 Last Admin: 04/28/22 21:36 Dose: 5 mg Documented by: Furosemide (Furosemide 40 Mg/4 Ml Vial) 40 mg IV Q8HT [facility] Stop: 05/28/22 13:59 Last Admin: 04/29/22 05:34 Dose: 40 mg Documented by: CHRISTINE Guaifenesin/Dextromethorphan (Guaifenesin/D-Methorphan Hb 118 Ml Syrup) 10 ml PO Q4H PRN PRN PRN Reason: COUGH Stop: 05/28/22 17:22 Last Admin: 04/29/22 04:27 Dose: 10 ml Documented by: CHRISTINE Levofloxacin/Dextrose (Levofloxacin 500mg/100ml D5w) 500 mg in 100 mls @ 100 mls/hr IV QPM [facility] Stop: 05/28/22 21:59 Last Admin: 04/28/22 21:36 Dose: 100 mls/hr Documented by: Sodium Chloride (Sodium Chloride 0.9% 1000 Ml) 1,000 mls @ 70 mls/hr IV .[id number] [facility] Stop: 05/28/22 11:44 Last Admin: 04/29/22 00:26 Dose: 70 mls/hr Documented by: Infusion/Titration Document 04/29/22 00:26 MS (Rec: 04/29/22 00:26 MS [id number]) Dosing & Rate IV Rate 70 Increase/Decrease Started/Running Cumulative Dose Not Applicable IV Intake Container Volume 1,000 Cumulative Intake (Rx) 854 Volume Adjustment/Waste 0 Lorazepam (Lorazepam 2 Mg/1 Ml 2 Mg Vial) 1 mg IV Q2H PRN PRN PRN Reason: ANXIETY/AGITATION Stop: 05/28/22 02:05 Last Admin: 04/29/22 05:27 Dose: 1 mg Documented by: CHRISTINE GOMEZ Patient Reassessment Document 04/29/22 05:27 (Rec: 04/29/22 05:28 [id number]) Vital Signs Pulse Rate (60-90) 92 Patient Reassessment Sedation Scale Dozing Intermittently Metoprolol Tartrate (Metoprolol Tartrate 50 Mg Tablet) 50 mg PO BID VERNA Stop: 05/28/22 12:59 Last Admin: 04/28/22 21:36 Dose: 50 mg Documented by: Morphine Sulfate (Morphine Sulfate 4 Mg/Ml Injection) 4 mg IV Q4H PRN PRN PRN Reason: PAIN Stop: 05/03/22 09:25 Last Admin: 04/28/22 09:41 Dose: 4 mg Documented by: CECILIA GOMEZ PAIN Document 04/28/22 09:41 CECILIA (Rec: 04/28/22 09:41 CECILIA [id number]) Reassesment Pain Scale Used FLACC Re-Assess: Pain Reassessment Document 04/28/22 10:11 CECILIA (Rec: 04/28/22 10:57 CECILIA [id number]) Pain Description Pain Scale Used 0-10 Pain Scale Multivitamins Therapeutic (Multivitamins,Therapeutic 1 Tab Tab) 1 tab PO DAILY VERNA Stop: 05/28/22 13:59 Last Admin: 04/28/22 13:44 Dose: 1 tab Documented by: CECILIA Discontinued Medications Albuterol Sulfate (Albuterol Sulfate 2.5 Mg/3 Ml Neb) 2.5 mg IH STAT ONE Stop: 04/27/22 18:36 Last Admin: 04/27/22 18:35 Dose: 2.5 mg Documented by: SALO Nebulizer Treatment Document 04/27/22 18:35 SALO (Rec: 04/27/22 20:57 SALO [id number]) Therapy Aerosol Therapy Initial Aerosol Therapy Treatment Method Nebulizer,Mouthpiece Treatment Tolerance Poor Supplies Nebulizer Yes Furosemide (Furosemide 40 Mg/4 Ml Vial) 40 mg IV STAT ONE Stop: 04/27/22 18:39 Last Admin: 04/27/22 19:06 Dose: 40 mg Documented by: AZALEA Med Admininistration (IV,IVP) Document 04/27/22 19:06 AZALEA (Rec: 04/27/22 19:06 AZALEA [id number]) Type of Administration Initial IV Push Yes Furosemide (Furosemide 40 Mg/4 Ml Vial) 40 mg IV Q8H VERNA Stop: 05/28/22 02:05 Last Admin: 04/28/22 03:21 Dose: 40 mg Documented by: Levofloxacin/Dextrose (Levofloxacin 500mg/100ml D5w) 500 mg in 100 mls @ 100 mls/hr IV STAT STA Stop: 04/27/22 20:28 Last Infusion: 04/27/22 20:41 Dose: 0 ml/hr, 0 mls/hr Documented by: JEFFREY Infusion/Titration Document 04/27/22 20:41 DQ (Rec: 04/27/22 20:41 DQ [id number]) Dosing & Rate Titration Dose 0 IV Rate 0 Increase/Decrease Infused Cumulative Dose 500 IV Intake Container Volume 0 Infusion Intake 100 Cumulative Intake (Bag) 100 Cumulative Intake (Rx) 100 Volume Adjustment/Waste 0 Lorazepam (Lorazepam 2 Mg/1 Ml 2 Mg Vial) 1 mg IV STAT ONE Stop: 04/27/22 18:38 Last Admin: 04/27/22 19:06 Dose: 1 mg Documented by: AZALEA Med Admininistration (IV,IVP) Document 04/27/22 19:06 KB (Rec: 04/27/22 19:06 KB [id number]) Type of Administration Initial IV Push No IV Push-Addtl Different Drug Yes Patient Med Reassessment Document 04/27/22 19:06 KB (Rec: 04/27/22 19:06 KB [id number]) Patient Assessment Sedation Scale Wide Awake Lorazepam (Lorazepam 2 Mg/1 Ml 2 Mg Vial) 1 mg IV STAT ONE Stop: 04/27/22 20:11 Last Admin: 04/27/22 20:15 Dose: 1 mg Documented by: JEFFREY Med Admininistration (IV,IVP) Document 04/27/22 20:15 DQ (Rec: 04/27/22 20:15 DQ [id number]) Type of Administration Initial IV Push No Lorazepam (Lorazepam 2 Mg/1 Ml 2 Mg Vial) 1 mg IV STAT ONE Stop: 04/27/22 22:10 Last Admin: 04/27/22 22:11 Dose: 1 mg Documented by: JEFFREY Med Admininistration (IV,IVP) Document 04/27/22 22:11 DQ (Rec: 04/27/22 22:11 DQ [id number]) Type of Administration Initial IV Push No Lorazepam (Lorazepam 2 Mg/1 Ml 2 Mg Vial) 1 mg IV STAT ONE Stop: 04/28/22 00:02 Last Admin: 04/28/22 00:57 Dose: 1 mg Documented by: MM Med Admininistration (IV,IVP) Document 04/28/22 00:57 MM (Rec: 04/28/22 00:57 MM [id number]) Type of Administration Initial IV Push No IV Push-Addtl Same Drug >30min Yes Patient Med Reassessment Document 04/28/22 00:57 MM (Rec: 04/28/22 00:57 MM [id number]) Patient Assessment Sedation Scale Wide Awake Metoprolol Tartrate (Metoprolol Tartrate 5 Mg/5 Ml Vial) 5 mg IV STAT ONE Stop: 04/27/22 19:45 Last Admin: 04/27/22 19:49 Dose: 5 mg Documented by: MM Med Admininistration (IV,IVP) Document 04/27/22 19:49 MM (Rec: 04/27/22 19:49 MM [id number]) Type of Administration Initial IV Push No IV Push-Addtl Different Drug Yes Code(s): J44.1 - CHRONIC OBSTRUCTIVE PULMONARY DISEASE W (ACUTE) EXACERBATION
[2022-04-29] MEDS: Lopressor 50 MG PO SCH ×2 (08:06→21:10)
[2022-04-29] MEDS: NORVASC 5 MG PO SCH (08:16)
[2022-04-29] MEDS ORDERED: NON-FORMULARY ITEM (Multivit-Min/Fa/Lycopen/Lutein [Centrum Silver Tablet] 1 EACH Tablet) PO SCH (10:00)
[2022-04-29] MEDS: Levofloxacin 500MG/100ML D5W 500 MG/100 ML BAG IV SCH (21:10)
[2022-04-30] MEDS: Sodium Chloride 0.9% 1000 ML 1,000 ML IV SCH ×2 (00:34→14:51)
[2022-04-30 04:11] LABS: Hematocrit 33.9 % (42-50); Hemoglobin 10.7 g/dL (12.5-18.0); Mean Cell Volume 87.6 fL (78-100); Mean Corpuscular Hemoglobin 27.6 pg (26-32); Mean Corpuscular Hgb Concent. 31.6 g/dL (32-36); Mean Platelet Volume 8.8 fL (7.5-11.0); Platelet Count 291 x10^3/uL (150-450); Red Blood Count 3.87 x10^6/uL (4.1-5.6); Red Cell Distribution Width 15.8 % (11.5-14.0); White Blood Count 9.8 x10^3/uL (4.0-10.5)
[2022-04-30 04:34] LABS: BLOOD UREA NITROGEN 29 mg/dL (9-20); CHLORIDE 91 mmol/L (98-107); Calcium 8.1 mg/dL (8.4-10.2); Creatinine 1 0.88 mg/dL (0.66-1.25); EST GLOMERULAR FILTRATION RATE > 60.0 ML/MIN; Glucose 81 mg/dL (74-106); Potassium 3.7 mmol/L (3.5-5.1); SODIUM 134 mmol/L (137-145)
[2022-04-30 04:40] LABS: Carbon Dioxide 39 mmol/L (22-30)
[2022-04-30 04:41] LABS: ANION GAP 7.7 MEQ/L (5-15)
[2022-04-30] MEDS: Lasix 40 MG/4 ML IV SCH ×2 (05:15→14:52)
[2022-04-30] MEDS: DUONEB 0.5-3 MG/3 ml Neb IH SCH ×4 (07:07→18:13)
[2022-04-30] MEDS: ELIQUIS 2.5 MG TABLET PO SCH ×2 (08:57→22:54)
[2022-04-30] MEDS: Lopressor 50 MG PO SCH ×2 (08:57→22:54)
[2022-04-30] MEDS: THERAGRAN MULTIVITAMIN PO SCH (08:57)
[2022-04-30] MEDS: NORVASC 5 MG PO SCH (08:57)
[2022-04-30] MEDS: Robitussin-Dm Syrup PO PRN ×2 (11:22→22:53)
--- NOTE | 2022-04-30 13:28 | PCM.NOTE ---
Date and Time: 04/30/22 1327 Subjective Assessment: doing better - Review of Systems Constitutional: No Fever, No Chills Eyes: No Symptoms Ears, Nose, & Throat: No Symptoms Respiratory: No Cough, No Short Of Breath Cardiac: No Chest Pain, No Edema, No Syncope Abdominal/Gastrointestinal: No Abdominal Pain, No Nausea, No Vomiting, No Diarrhea Genitourinary Symptoms: No Dysuria Musculoskeletal: No Back Pain, No Neck Pain Skin: No Rash Neurological: No Dizziness, No Focal Weakness, No Sensory Changes Psychological: No Symptoms Endocrine: No Symptoms Hematologic/Lymphatic: No Symptoms Immunological/Allergic: No Symptoms Objective Exam General Appearance: no apparent distress, alert Neurologic Exam: alert, oriented x 3, cooperative, normal mood/affect, sensation nml, No motor deficits Skin Exam: normal color, warm, dry Eye Exam: PERRL, EOMI, eyes nml inspection Ears, Nose, Throat Exam: normal ENT inspection, pharynx normal, moist mucous membranes Neck Exam: normal inspection, non-tender, supple, full range of motion Respiratory Exam: normal breath sounds, lungs clear, No respiratory distress Cardiovascular Exam: regular rate/rhythm, normal heart sounds Gastrointestinal/Abdomen Exam: soft, No tenderness, No mass Extremity Exam: normal inspection, normal range of motion Back Exam: normal inspection, normal range of motion, No CVA tenderness, No vertebral tenderness Male Genitalia Exam: deferred Rectal Exam: deferred OBJECTIVE DATA Vital Signs: Vital Signs - 24 hr Temp Pulse Resp BP Pulse Ox 04/30/22 12:00 97.5 F 93 H 16 94/50 98 04/30/22 11:01 92 H 18 94 L 04/30/22 08:00 97.7 F 98 H 13 117/62 96 04/30/22 07:11 101 H 18 96 04/30/22 03:32 97.5 F 111 H 13 122/76 95 04/29/22 23:48 97.3 F 95 H 17 108/68 97 04/29/22 19:33 97.5 F 109 H 16 136/75 94 L 04/29/22 19:25 104 H 20 93 L 04/29/22 15:38 97.8 F 102 H 16 128/64 98 04/29/22 14:32 99 H 16 93 L Pain Assessment - Last Documented Pain Intensity 0 Pain Scale Used 0-10 Pain Scale Intake and Output: Intake & Output 04/28/22 04/29/22 04/30/22 05/01/22 11:59 11:59 11:59 11:59 Intake Total 40 2255 2262 Output Total 5811 7500 36590 Balance -0349 -7780 -0576 Weight 76 kg 76 kg Lab Results: Lab Results-Last 24 Hours 04/30/22 04/30/22 Range/Units 04:07 04:07 WBC 9.8 (4.0-10.5) x10^3/uL RBC 3.87 L (4.1-5.6) x10^6/uL Hgb 10.7 L (12.5-18.0) g/dL Hct 33.9 L (42-50) % MCV 87.6 (78-100) fL MCH 27.6 (26-32) pg MCHC 31.6 L (32-36) g/dL RDW 15.8 H (11.5-14.0) % Plt Count 291 (150-450) x10^3/uL MPV 8.8 (7.5-11.0) fL Sodium 134 L (137-145) mmol/L Potassium 3.7 (3.5-5.1) mmol/L Chloride 91 L (98-107) mmol/L Carbon Dioxide 39 H (22-30) mmol/L Anion Gap 7.7 (5-15) MEQ/L BUN 29 H (9-20) mg/dL Creatinine 0.88 (0.66-1.25) mg/dL Estimated GFR > 60.0 ML/MIN Glucose 81 (74-106) mg/dL Calcium 8.1 L (8.4-10.2) mg/dL Multi-Disciplinary Progress Notes: Multi-Disciplinary Progress Notes 04/30/22 11:12 Case Management Note by Hailey Banda PATENT HAS [employer]. THEY WERE NOTIFIED PATIENT IS HERE INPT. THEY WILL NEED NOTIFIED AT TIME OF DC AT [phone]. THEY WILL NEED FAXED THE DC INSTRUCTIONS, DC MED LIST AND DC SUMMARY ( IF AVAILABLE) TO [phone] Initialized on 04/30/22 11:12 - END OF NOTE 04/30/22 11:03 Case Management Note by Hailey Banda CALLED AND S/W [facility]- PATIENT'S NIECE. HE LIVES WITH HER AND IS HIS CAREGIVER. SHE REPORTS PATIENT JUST RECENTLY DCD FROM [facility] APPROX 2 WEEKS AGO. SHE WOULD LIKE FOR HIM TO RETURN THERE AT TIME OF DC IF [employer] WILL APPROVE IT. SHE REPORTS HE HAD TO DC FROM [facility] D/T DOING TOO WELL FOR INSURANCE TO APPROVE ANY LONGER. WE DISCUSSED MEDICARE ADVANTAGE PLANS VS TRADITIONAL MEDICARE. SHE WAS GIVEN INSURANCE NAVIGATOR'S PHONE NUMBER TO CONTACT TO SEE IF IT WOULD BE IN PATIENT'S BEST INTEREST TO CHANGE TO TRADITIONAL. S/W SON (NEXT OF KIN) GREGORIO SANTIAGO [phone]- HE REPORTS ALL DC PLANNING AND NEEDS CAN GO THRU [facility]. SHE KEEPS HIM UPDATED ON PATIENT'S STATUS. HE IS ALSO AGREEABLE TO PATIENT RETURNING TO [facility] AT TIME OF DC. REFERRAL FAXED TO [facility] AT THIS TIME Initialized on 04/30/22 11:03 - END OF NOTE Assessment/Plan (1) CHF (congestive heart failure) Current Visit: Yes Status: Acute Qualifiers: Heart failure type: combined systolic and diastolic Heart failure chronicity: acute on chronic Qualified Code(s): I50.43 - Acute on chronic combined systolic (congestive) and diastolic (congestive) heart failure Assessment & Plan: Chief Complaint Diagnosis c/o severe shortness of breath for 1 day Allergies Allergy/AdvReac Type Severity Reaction Status Date / Time Penicillins Allergy Severe Anaphylactic Verified 04/27/22 19:07 Reaction Vital Signs (Last 24 hours) Temp Pulse Resp BP Pulse Ox 04/30/22 12:00 97.5 F 93 H 16 94/50 98 04/30/22 11:01 92 H 18 94 L 04/30/22 08:00 97.7 F 98 H 13 117/62 96 04/30/22 07:11 101 H 18 96 04/30/22 03:32 97.5 F 111 H 13 122/76 95 04/29/22 23:48 97.3 F 95 H 17 108/68 97 04/29/22 19:33 97.5 F 109 H 16 136/75 94 L 04/29/22 19:25 104 H 20 93 L 04/29/22 15:38 97.8 F 102 H 16 128/64 98 04/29/22 14:32 99 H 16 93 L Home Medications Medication Instructions Recorded Confirmed Last Taken Type Docusate Sodium [Colace] 100 mg PO BID PRN 04/28/22 04/28/22 Unknown History Metoprolol Tartrate 50 mg 50 mg PO BID 04/28/22 04/28/22 Unknown History [Lopressor 50 MG] Multivit-Min/FA/Lycopen/Lutein 1 tab PO DAILY 04/28/22 04/28/22 Unknown History [Centrum Silver Tablet] Current Medications Generic Name Dose Route Start Last Admin Trade Name Freq PRN Reason Stop Dose Admin Acetaminophen 650 mg 04/28/22 02:06 Acetaminophen 325 Mg Tablet PO 05/28/22 02:05 Q4H PRN PRN PAIN, FEVER, HEADACHE Albuterol Sulfate 4 puff 04/28/22 02:26 Albuterol Common Canister Inhaler 05/28/22 02:25 Q4H PRN PRN SHORTNESS OF BREATH/WHEEZING Albuterol Sulfate 2.5 mg 04/28/22 23:39 04/28/22 23:41 Albuterol Sulfate 2.5 Mg/3 Ml [facility] 05/28/22 23:38 2.5 mg Q4H PRN PRN Administration SHORTNESS OF BREATH/WHEEZING Albuterol/Ipratropium 3 ml 04/28/22 07:00 04/30/22 10:59 Ipratropium/Albuterol Sulfate 3 Ml Ampul.[facility] 05/28/22 06:59 3 ml QIDRT VERNA Administration Amlodipine Besylate 5 mg 04/28/22 13:00 04/30/22 08:57 Amlodipine Besylate 5 Mg Tablet PO 05/28/22 12:59 5 mg DAILY VERNA Administration Apixaban 5 mg 04/28/22 14:00 04/30/22 08:57 Apixaban 2.5 Mg Tablet PO 05/28/22 13:59 5 mg BID VERNA Administration Docusate Sodium 100 mg 04/28/22 13:15 Docusate Sodium 100 Mg Capsule PO 05/28/22 13:14 BID PRN PRN Furosemide 40 mg 04/28/22 14:00 04/30/22 05:15 Furosemide 40 Mg/4 Ml Vial IV 05/28/22 13:59 40 mg Q8HT VERNA Administration Guaifenesin/Dextromethorphan 10 ml 04/28/22 17:23 04/30/22 11:22 Guaifenesin/D-Methorphan Hb 118 Ml Syrup PO 05/28/22 17:22 10 ml Q4H PRN PRN Administration COUGH Levofloxacin/Dextrose 500 mg in 100 mls @ 100 mls/hr 04/28/22 22:00 04/29/22 21:10 Levofloxacin 500mg/100ml D5w IV 05/28/22 21:59 100 mls/hr QPM VERNA Administration Sodium Chloride 1,000 mls @ 70 mls/hr 04/28/22 11:45 04/30/22 00:34 Sodium Chloride 0.9% 1000 Ml IV 05/28/22 11:44 70 mls/hr .[id number] VERNA Administration Lorazepam 1 mg 04/28/22 02:06 04/29/22 10:34 Lorazepam 2 Mg/1 Ml 2 Mg Vial IV 05/28/22 02:05 1 mg Q2H PRN PRN Administration ANXIETY/AGITATION Metoprolol Tartrate 50 mg 04/28/22 13:00 04/30/22 08:57 Metoprolol Tartrate 50 Mg Tablet PO 05/28/22 12:59 50 mg BID VERNA Administration Morphine Sulfate 4 mg 04/28/22 09:26 04/29/22 15:27 Morphine Sulfate 4 Mg/Ml Injection IV 05/03/22 09:25 4 mg Q4H PRN PRN Administration PAIN Multivitamins Therapeutic 1 tab 04/28/22 14:00 04/30/22 08:57 Multivitamins,Therapeutic 1 Tab Tab PO 05/28/22 13:59 1 tab DAILY VERNA Administration Ondansetron HCl 4 mg 04/28/22 02:06 Ondansetron Hcl 4 Mg/2 Ml Vial IV 05/28/22 02:05 Q6H PRN PRN NAUSEA/VOMITING Discontinued Medications Generic Name Dose Route Start Last Admin Trade Name Freq PRN Reason Stop Dose Admin Albuterol Sulfate Confirm 04/27/22 18:30 Albuterol Sulfate 2.5 Mg/3 Ml Neb Administered 04/27/22 18:31 Dose 2.5 mg IH .STK-MED ONE Albuterol Sulfate 2.5 mg 04/27/22 18:35 04/27/22 18:35 Albuterol Sulfate 2.5 Mg/3 Ml Neb IH 04/27/22 18:36 2.5 mg STAT ONE Administration Albuterol Sulfate Confirm 04/28/22 23:37 Albuterol Sulfate 2.5 Mg/3 Ml Neb Administered 04/28/22 23:38 Dose 2.5 mg IH .STK-MED ONE Albuterol/Ipratropium Confirm 04/28/22 01:50 Ipratropium/Albuterol Sulfate 3 Ml Ampul.Neb Administered 04/28/22 01:51 Dose 3 ml IH .STK-MED ONE Furosemide 40 mg 04/27/22 18:38 04/27/22 19:06 Furosemide 40 Mg/4 Ml Vial IV 04/27/22 18:39 40 mg STAT ONE Administration Furosemide Confirm 04/27/22 18:42 Furosemide 40 Mg/4 Ml Vial Administered 04/27/22 18:43 Dose 40 mg .ROUTE .STK-MED ONE Furosemide 40 mg 04/28/22 02:06 04/28/22 03:21 Furosemide 40 Mg/4 Ml Vial IV 05/28/22 02:05 40 mg Q8H VERNA Administration Levofloxacin/Dextrose 500 mg in 100 mls @ 100 mls/hr 04/27/22 19:29 04/27/22 20:41 Levofloxacin 500mg/100ml D5w IV 04/27/22 20:28 Infused STAT STA Infusion Levofloxacin/Dextrose Confirm 04/27/22 19:33 Levofloxacin 500mg/100ml D5w Administered 04/27/22 19:34 Dose 500 mg in 100 mls @ ud IV .STK-MED ONE Lorazepam 1 mg 04/27/22 18:37 04/27/22 19:06 Lorazepam 2 Mg/1 Ml 2 Mg Vial IV 04/27/22 18:38 1 mg STAT ONE Administration Lorazepam Confirm 04/27/22 18:41 Lorazepam 2 Mg/1 Ml 2 Mg Vial Administered 04/27/22 18:42 Dose 2 mg .ROUTE .STK-MED ONE Lorazepam 1 mg 04/27/22 20:10 04/27/22 20:15 Lorazepam 2 Mg/1 Ml 2 Mg Vial IV 04/27/22 20:11 1 mg STAT ONE Administration Lorazepam Confirm 04/27/22 20:14 Lorazepam 2 Mg/1 Ml 2 Mg Vial Administered 04/27/22 20:15 Dose 2 mg .ROUTE .STK-MED ONE Lorazepam 1 mg 04/27/22 22:09 04/27/22 22:11 Lorazepam 2 Mg/1 Ml 2 Mg Vial IV 04/27/22 22:10 1 mg STAT ONE Administration Lorazepam Confirm 04/27/22 22:11 Lorazepam 2 Mg/1 Ml 2 Mg Vial Administered 04/27/22 22:12 Dose 2 mg .ROUTE .STK-MED ONE Lorazepam 1 mg 04/28/22 00:01 04/28/22 00:57 Lorazepam 2 Mg/1 Ml 2 Mg Vial IV 04/28/22 00:02 1 mg STAT ONE Administration Lorazepam Confirm 04/28/22 00:53 Lorazepam 2 Mg/1 Ml 2 Mg Vial Administered 04/28/22 00:54 Dose 2 mg .ROUTE .STK-MED ONE Metoprolol Tartrate 5 mg 04/27/22 19:44 04/27/22 19:49 Metoprolol Tartrate 5 Mg/5 Ml Vial IV 04/27/22 19:45 5 mg STAT ONE Administration Metoprolol Tartrate Confirm 04/27/22 19:48 Metoprolol Tartrate 5 Mg/5 Ml Vial Administered 04/27/22 19:49 Dose 5 mg IV .STK-MED ONE Intake & Output (Last 24 hours) 04/28/22 04/29/22 04/30/22 05/01/22 11:59 11:59 11:59 11:59 Intake Total 40 1455 2262 Output Total [address] [facility] -3885 -2045 -8088 Weight 76 kg 76 kg Laboratory Results (Last 24 hours) 04/30/22 04/30/22 04:07 04:07 WBC 9.8 RBC 3.87 L Hgb 10.7 L Hct 33.9 L MCV 87.6 MCH 27.6 MCHC 31.6 L RDW 15.8 H Plt Count 291 MPV 8.8 Sodium 134 L Potassium 3.7 Chloride 91 L Carbon Dioxide 39 H Anion Gap 7.7 BUN 29 H Creatinine 0.88 Estimated GFR > 60.0 Glucose 81 Calcium 8.1 L Orders (Last 24 hours) Category Date Time Status Cardio-Pulmonary Rehab .as ordered Cons 04/30/22 09:00 Active Infection Control Consult ROUTINE Cons 04/30/22 09:00 Active Instructor Hairspring/Discharge Plan ROUTINE Cons 04/30/22 09:00 Active BMP AM.LAB Lab 04/30/22 04:07 Completed CBC AM.LAB Lab 04/30/22 04:07 Completed PT Eval & Treat ( Order) ONCE PT 04/29/22 14:25 Completed Patient Care Notes (Last 24 hours) 04/30/22 11:12 Case Management Note by Hailey Banda PATENT HAS [employer]. THEY WERE NOTIFIED PATIENT IS HERE INPT. THEY WILL NEED NOTIFIED AT TIME OF DC AT [phone]. THEY WILL NEED FAXED THE DC INSTRUCTIONS, DC MED LIST AND DC SUMMARY ( IF AVAILABLE) TO [phone] Initialized on 04/30/22 11:12 - END OF NOTE 04/30/22 11:03 Case Management Note by Hailey Banda CALLED AND S/W KRISTEN- PATIENT'S NIECE. HE LIVES WITH HER AND IS HIS CAREGIVER. SHE REPORTS PATIENT JUST RECENTLY DCD FROM [facility] APPROX 2 WEEKS AGO. SHE WOULD LIKE FOR HIM TO RETURN THERE AT TIME OF DC IF [employer] WILL APPROVE IT. SHE REPORTS HE HAD TO DC FROM [facility] D/T DOING TOO WELL FOR INSURANCE TO APPROVE ANY LONGER. WE DISCUSSED MEDICARE ADVANTAGE PLANS VS TRADITIONAL MEDICARE. SHE WAS GIVEN INSURANCE NAVIGATOR'S PHONE NUMBER TO CONTACT TO SEE IF IT WOULD BE IN PATIENT'S BEST INTEREST TO CHANGE TO TRADITIONAL. S/W SON (NEXT OF KIN) GREGORIO SANTIAGO [phone]- HE REPORTS ALL DC PLANNING AND NEEDS CAN GO THRU [facility]. SHE KEEPS HIM UPDATED ON PATIENT'S STATUS. HE IS ALSO AGREEABLE TO PATIENT RETURNING TO [facility] AT TIME OF DC. REFERRAL FAXED TO [facility] AT THIS TIME Initialized on 04/30/22 11:03 - END OF NOTE Code(s): I50.9 - HEART FAILURE, UNSPECIFIED (2) Pneumonia Current Visit: Yes Status: Acute Qualifiers: Pneumonia type: due to unspecified organism Laterality: bilateral Lung location: lower lobe of lung Qualified Code(s): J18.9 - Pneumonia, unspecified organism Code(s): J18.9 - PNEUMONIA, UNSPECIFIED ORGANISM (3) Atrial fibrillation with RVR Current Visit: Yes Status: Chronic Code(s): I48.91 - UNSPECIFIED ATRIAL FIBRILLATION (4) CAD (coronary artery disease) Current Visit: Yes Status: Chronic Qualifiers: Coronary Disease-Associated Artery/Lesion type: [place] artery [place] vs. transplanted heart: [place] heart Associated angina: unspecified whether angina present Qualified Code(s): I25.10 - Atherosclerotic heart disease of [place] coronary artery without angina pectoris Code(s): I25.10 - ATHSCL HEART DISEASE OF [place] CORONARY ARTERY W/O ANG PCTRS (5) COPD exacerbation Current Visit: Yes Status: Acute Code(s): J44.1 - CHRONIC OBSTRUCTIVE PULMONARY DISEASE W (ACUTE) EXACERBATION
[2022-04-30] MEDS ORDERED: Levofloxacin 250MG Tablet PO SCH (22:00)
[2022-05-01] MEDS: Robitussin-Dm Syrup PO PRN ×2 (03:19→10:41)
[2022-05-01] MEDS: DUONEB 0.5-3 MG/3 ml Neb IH SCH ×3 (06:12→14:46)
[2022-05-01] MEDS: Lasix 40 MG/4 ML IV SCH (09:47)
[2022-05-01] MEDS: Levofloxacin 500MG/100ML D5W 500 MG/100 ML BAG IV SCH (09:47)
[2022-05-01] MEDS ORDERED: Lasix 40 MG PO SCH (10:00)
[2022-05-01] MEDS: Lopressor 50 MG PO SCH (10:40)
[2022-05-01] MEDS: NORVASC 5 MG PO SCH (10:40)
[2022-05-01] MEDS: ELIQUIS 2.5 MG TABLET PO SCH (10:40)
[2022-05-01] MEDS: THERAGRAN MULTIVITAMIN PO SCH (10:41)
[2022-05-01 11:44] VITALS: BP 116/69
[2022-05-01 14:49] VITALS: PULSE 99; O2SAT 93
--- NOTE | 2022-05-01 21:11 | PCM.NOTE ---
Date and Time: 05/01/222109 Subjective Assessment: doing better - Review of Systems Constitutional: No Fever, No Chills Eyes: No Symptoms Ears, Nose, & Throat: No Symptoms Respiratory: No Cough, No Short Of Breath Cardiac: No Chest Pain, No Edema, No Syncope Abdominal/Gastrointestinal: No Abdominal Pain, No Nausea, No Vomiting, No Diarrhea Genitourinary Symptoms: No Dysuria Musculoskeletal: No Back Pain, No Neck Pain Skin: No Rash Neurological: No Dizziness, No Focal Weakness, No Sensory Changes Psychological: No Symptoms Endocrine: No Symptoms Hematologic/Lymphatic: No Symptoms Immunological/Allergic: No Symptoms Objective Exam General Appearance: no apparent distress, alert Neurologic Exam: alert, oriented x 3, cooperative, normal mood/affect, nml cerebellar function, sensation nml, No motor deficits Skin Exam: normal color, warm, dry Eye Exam: PERRL, EOMI, eyes nml inspection Ears, Nose, Throat Exam: normal ENT inspection, pharynx normal, moist mucous membranes Neck Exam: normal inspection, non-tender, supple, full range of motion Respiratory Exam: normal breath sounds, lungs clear, No respiratory distress Cardiovascular Exam: regular rate/rhythm, normal heart sounds Gastrointestinal/Abdomen Exam: soft, No tenderness, No mass Extremity Exam: normal inspection, normal range of motion Back Exam: normal inspection, normal range of motion, No CVA tenderness, No vertebral tenderness Male Genitalia Exam: deferred Rectal Exam: deferred OBJECTIVE DATA Vital Signs: Vital Signs - 24 hr Temp Pulse Resp BP Pulse Ox 05/01/22 16:00 97.5 F 99 H 18 116/69 93 L 05/01/22 14:48 99 H 18 93 L 05/01/22 11:44 97.5 F 89 19 116/69 95 05/01/22 11:00 88 20 95 05/01/22 07:38 97.3 F 87 18 118/63 95 05/01/22 06:12 90 18 93 L 05/01/22 04:00 97.7 F 80 17 162/67 93 L Pain Assessment - Last Documented Pain Intensity 0 Pain Scale Used 0-10 Pain Scale Intake and Output: Intake & Output 04/29/22 04/30/22 05/01/22 05/02/22 11:59 11:59 11:59 11:59 Intake Total 1455 2262 2140 240 Output Total 3500 35350 2950 Balance -2044 -8088 -810 240 Weight 76 kg 76 kg Multi-Disciplinary Progress Notes: Multi-Disciplinary Progress Notes 05/01/22 14:30 Physical Therapy Note by Reagan(Amira#[id number])Batsheva PT. SEEN BY P.T. THIS A.M. PT. ALERT UT NOT ABLE TO NAME HIS LOCATION OR THE MONTH/DATE. IN BEDSIDE CHAIR UPON P.T. ARRIVAL TO ROOM. NO C/O PN. O2 SATS 91% @ REST ON RA. PT. AGREEABLE TO WORK W/ P.T. PERFORMED SIT TO STAND MOD I. AMBULATED ~ 60' W/ RW AND RZ AND O2 SATS DECREASED TO 86% ON RA. PT. STOPPED TO REST IN STANDING AND R.T. RETRIEVED O2 TANK. PT. AMBULATED ANOTHER ~ 100' ON 2 L AND MAINTAINED O2 SATS @ 92%+ WHILE AMBULATING W/ RW AND SBA. PT. REQUIRES OCCASIONAL V.C FOR PURSED LIP BREATHING. PT. IS AGREEABLE TO D/C HOME W/ [facility]IECE AND [facility] P.T. . PT. TO GO HOME W/ HOME O2 WELL. PT. HAS ROLLER WALKER AT HOME WELL. WILL CONT. P.T. 5X/WK UNTIL D/C TO ADDRESS WEAKNESS AND DECREASED ACTIVITY TOLERANCE. Initialized on 05/01/22 14:30 - END OF NOTE 05/01/22 12:59 Case Management Note by Hailey Banda ORDER FOR HOME OXYGEN AND NEB MACHINE PLACED WITH [facility] WITH INSTRUCTIONS TO DELIVER TO PATIENT'S HOME. PRIMARY RN NOTIFIED TO SEND HIM WITH A PORTABLE TANK FROM [facility]. DELIVERY INSTRUCTIONS WERE PLACED ON PATIENT'S DC PAPERWORK. I WENT OVER THE DELIVERY INSTRUCTIONS WITH [facility]IECE OVER THE PHONE EARLIER TODAY WELL. PRIMARY RN GIVEN PULSE OX TO SEND HOME WITH PATIENT AT TIME OF DC WELL. Initialized on 05/01/22 12:59 - END OF NOTE 05/01/22 10:59 Case Management Note by Hailey Banda PATIENT A&O ANSWERING QUESTIONS APPROPRIATELY. HE DOES NOT WISH TO GO TO REHAB AT THIS TIME. HE PREFERS TO RETURN HOME WITH HIS NIECE. PATIENT ALSO WALKED WITH PHYSICAL THERAPY >100 FT. S/W [facility]IECE- SHE UNDERSTANDS THAT PATIENT WILL NOT LIKELY QUALIFY FOR A REHAB STAY AT THIS TIME. SHE AGREES TO HAVE PATIENT RETURN HOME WITH HER AT TIME OF DC. PATIENT ALREADY HAS HHC SET UP WITH [facility] FROM [facility]ST STAY. Initialized on 05/01/22 10:59 - END OF NOTE 05/01/22 10:29 Respiratory Note by Sylvia Crisostomo PT'S O2 SAT ON ROOM AIR WHILE AT REST WAS 94%. PT'S O2 SAT ON ROOM AIR WHILE WALKING WAS 86%. PT WAS THEN PLACED ON 2LPM WHILE WALKING AND O2 SAT WAS 92-93%. Initialized on 05/01/22 10:29 - END OF NOTE Assessment/Plan (1) CHF (congestive heart failure) Current Visit: Yes Status: Acute Qualifiers: Heart failure type: combined systolic and diastolic Heart failure chronicity: acute on chronic Qualified Code(s): I50.43 - Acute on chronic combined systolic (congestive) and diastolic (congestive) heart failure Assessment & Plan: Chief Complaint Diagnosis c/o severe shortness of breath for 1 day Allergies Allergy/AdvReac Type Severity Reaction Status Date / Time Penicillins Allergy Severe Anaphylactic Verified 04/27/22 19:07 Reaction Vital Signs (Last 24 hours) Temp Pulse Resp BP Pulse Ox 05/01/22 16:00 97.5 F 99 H 18 116/69 93 L 05/01/22 14:48 99 H 18 93 L 05/01/22 11:44 97.5 F 89 19 116/69 95 05/01/22 11:00 88 20 95 05/01/22 07:38 97.3 F 87 18 118/63 95 05/01/22 06:12 90 18 93 L 05/01/22 04:00 97.7 F 80 17 162/67 93 L Home Medications Medication Instructions Recorded Confirmed Last Taken Type Docusate Sodium [Colace] 100 mg PO BID PRN 04/28/22 04/28/22 Unknown History Metoprolol Tartrate 50 mg 50 mg PO BID 04/28/22 04/28/22 Unknown History [Lopressor 50 MG] Multivit-Min/FA/Lycopen/Lutein 1 tab PO DAILY 04/28/22 04/28/22 Unknown History [Centrum Silver Tablet] Albuterol 2.5 mg/3 ml Neb 2.5 mg IH Q4H PRN PRN #30 packet 05/01/22 Unknown Rx [Proventil 2.5 mg/3 ml Neb] Albuterol/Ipratropium 3ml Neb* 3 ml IH QIDRT #30 packet 05/01/22 Unknown Rx [DUONEB 0.5-3 MG/3 ml Neb] Furosemide 40 mg [Lasix 40 40 mg PO DAILY #30 tablet 05/01/22 Unknown Rx MG] Hydroxyzine HCl 25 mg [Atarax 25 mg PO TID #30 05/01/22 Unknown Rx 25 mg] Levofloxacin [Levofloxacin 500 500 mg PO HS #3 tablet 05/01/22 Unknown Rx MG Tablet] Current Medications Generic Name Dose Route Start Last Admin Trade Name Freq PRN Reason Stop Dose Admin Acetaminophen 650 mg 04/28/22 02:06 Acetaminophen 325 Mg Tablet PO 05/28/22 02:05 Q4H PRN PRN PAIN, FEVER, HEADACHE Albuterol Sulfate 4 puff 04/28/22 02:26 Albuterol Common Canister Inhaler 05/28/22 02:25 Q4H PRN PRN SHORTNESS OF BREATH/WHEEZING Albuterol Sulfate 2.5 mg 04/28/22 23:39 04/28/22 23:41 Albuterol Sulfate 2.5 Mg/3 Ml Neb 05/28/22 23:38 2.5 mg Q4H PRN PRN Administration SHORTNESS OF BREATH/WHEEZING Albuterol/Ipratropium 3 ml 04/28/22 07:00 05/01/22 14:46 Ipratropium/Albuterol Sulfate 3 Ml Ampul.Neb 05/28/22 06:59 3 ml QIDRT VERNA Administration Amlodipine Besylate 5 mg 04/28/22 13:00 05/01/22 10:40 Amlodipine Besylate 5 Mg Tablet PO 05/28/22 12:59 5 mg DAILY VERNA Administration Apixaban 5 mg 04/28/22 14:00 05/01/22 10:40 Apixaban 2.5 Mg Tablet PO 05/28/22 13:59 5 mg BID VERNA Administration Docusate Sodium 100 mg 04/28/22 13:15 Docusate Sodium 100 Mg Capsule PO 05/28/22 13:14 BID PRN PRN Furosemide 40 mg 05/01/22 10:00 05/01/22 10:41 Furosemide 40 Mg Tablet PO 05/31/22 09:59 40 mg DAILY VERNA Administration Guaifenesin/Dextromethorphan 10 ml 04/28/22 17:23 05/01/22 10:41 Guaifenesin/D-Methorphan Hb 118 Ml Syrup PO 05/28/22 17:22 10 ml Q4H PRN PRN Administration COUGH Sodium Chloride 1,000 mls @ 70 mls/hr 04/28/22 11:45 04/30/22 14:51 Sodium Chloride 0.9% 1000 Ml IV 05/28/22 11:44 70 mls/hr .[id number] VERNA Administration Levofloxacin 500 mg 05/01/22 22:00 Levofloxacin 500 Mg Tablet PO 05/02/22 22:01 HS VERNA Metoprolol Tartrate 50 mg 04/28/22 13:00 05/01/22 10:40 Metoprolol Tartrate 50 Mg Tablet PO 05/28/22 12:59 50 mg BID VERNA Administration Multivitamins Therapeutic 1 tab 04/28/22 14:00 05/01/22 10:41 Multivitamins,Therapeutic 1 Tab Tab PO 05/28/22 13:59 1 tab DAILY VERNA Administration Discontinued Medications Generic Name Dose Route Start Last Admin Trade Name Freq PRN Reason Stop Dose Admin Albuterol Sulfate Confirm 04/27/22 18:30 Albuterol Sulfate 2.5 Mg/3 Ml Neb Administered 04/27/22 18:31 Dose 2.5 mg IH .STK-MED ONE Albuterol Sulfate 2.5 mg 04/27/22 18:35 04/27/22 18:35 Albuterol Sulfate 2.5 Mg/3 Ml Neb IH 04/27/22 18:36 2.5 mg STAT ONE Administration Albuterol Sulfate Confirm 04/28/22 23:37 Albuterol Sulfate 2.5 Mg/3 Ml Neb Administered 04/28/22 23:38 Dose 2.5 mg IH .STK-MED ONE Albuterol/Ipratropium Confirm 04/28/22 01:50 Ipratropium/Albuterol Sulfate 3 Ml Ampul.Neb Administered 04/28/22 01:51 Dose 3 ml IH .STK-MED ONE Furosemide 40 mg 04/27/22 18:38 04/27/22 19:06 Furosemide 40 Mg/4 Ml Vial IV 04/27/22 18:39 40 mg STAT ONE Administration Furosemide Confirm 04/27/22 18:42 Furosemide 40 Mg/4 Ml Vial Administered 04/27/22 18:43 Dose 40 mg .ROUTE .STK-MED ONE Furosemide 40 mg 04/28/22 02:06 04/28/22 03:21 Furosemide 40 Mg/4 Ml Vial IV 05/28/22 02:05 40 mg Q8H VERNA Administration Furosemide 40 mg 04/28/22 14:00 05/01/22 09:47 Furosemide 40 Mg/4 Ml Vial IV 05/28/22 13:59 Not Given Q8HT VERNA Levofloxacin/Dextrose 500 mg in 100 mls @ 100 mls/hr 04/27/22 19:29 04/27/22 20:41 Levofloxacin 500mg/100ml D5w IV 04/27/22 20:28 Infused STAT STA Infusion Levofloxacin/Dextrose Confirm 04/27/22 19:33 Levofloxacin 500mg/100ml D5w Administered 04/27/22 19:34 Dose 500 mg in 100 mls @ ud IV .STK-MED ONE Levofloxacin/Dextrose 500 mg in 100 mls @ 100 mls/hr 04/28/22 22:00 05/01/22 09:47 Levofloxacin 500mg/100ml D5w IV 05/28/22 21:59 Not Given QPM VERNA Levofloxacin 500 mg 04/30/22 22:00 04/30/22 22:53 Levofloxacin 250 Mg Tab PO 05/03/22 21:59 500 mg DAILY VERNA Administration Lorazepam 1 mg 04/27/22 18:37 04/27/22 19:06 Lorazepam 2 Mg/1 Ml 2 Mg Vial IV 04/27/22 18:38 1 mg STAT ONE Administration Lorazepam Confirm 04/27/22 18:41 Lorazepam 2 Mg/1 Ml 2 Mg Vial Administered 04/27/22 18:42 Dose 2 mg .ROUTE .STK-MED ONE Lorazepam 1 mg 04/27/22 20:10 04/27/22 20:15 Lorazepam 2 Mg/1 Ml 2 Mg Vial IV 04/27/22 20:11 1 mg STAT ONE Administration Lorazepam Confirm 04/27/22 20:14 Lorazepam 2 Mg/1 Ml 2 Mg Vial Administered 04/27/22 20:15 Dose 2 mg .ROUTE .STK-MED ONE Lorazepam 1 mg 04/27/22 22:09 04/27/22 22:11 Lorazepam 2 Mg/1 Ml 2 Mg Vial IV 04/27/22 22:10 1 mg STAT ONE Administration Lorazepam Confirm 04/27/22 22:11 Lorazepam 2 Mg/1 Ml 2 Mg Vial Administered 04/27/22 22:12 Dose 2 mg .ROUTE .STK-MED ONE Lorazepam 1 mg 04/28/22 00:01 04/28/22 00:57 Lorazepam 2 Mg/1 Ml 2 Mg Vial IV 04/28/22 00:02 1 mg STAT ONE Administration Lorazepam Confirm 04/28/22 00:53 Lorazepam 2 Mg/1 Ml 2 Mg Vial Administered 04/28/22 00:54 Dose 2 mg .ROUTE .STK-MED ONE Lorazepam 1 mg 04/28/22 02:06 04/29/22 10:34 Lorazepam 2 Mg/1 Ml 2 Mg Vial IV 05/28/22 02:05 1 mg Q2H PRN PRN Administration ANXIETY/AGITATION Metoprolol Tartrate 5 mg 04/27/22 19:44 04/27/22 19:49 Metoprolol Tartrate 5 Mg/5 Ml Vial IV 04/27/22 19:45 5 mg STAT ONE Administration Metoprolol Tartrate Confirm 04/27/22 19:48 Metoprolol Tartrate 5 Mg/5 Ml Vial Administered 04/27/22 19:49 Dose 5 mg IV .STK-MED ONE Morphine Sulfate 4 mg 04/28/22 09:26 04/29/22 15:27 Morphine Sulfate 4 Mg/Ml Injection IV 05/03/22 09:25 4 mg Q4H PRN PRN Administration PAIN Ondansetron HCl 4 mg 04/28/22 02:06 Ondansetron Hcl 4 Mg/2 Ml Vial IV 05/28/22 02:05 Q6H PRN PRN NAUSEA/VOMITING Intake & Output (Last 24 hours) 04/29/22 04/30/22 05/01/22 05/02/22 11:59 11:59 11:59 11:59 Intake Total 1456 2262 2140 240 Output Total 3506 [id number] 295 [facility] -2045 -8088 -810 240 Weight 76 kg 76 kg Orders (Last 24 hours) Category Date Time Status Discharge Routine Discharge 05/01/22 Ordered Furosemide 40 mg [Lasix 40 MG] Med 05/01/22 10:00 Active 40 mg PO DAILY Levofloxacin [Levofloxacin 250MG Tablet] Med 04/30/22 22:00 Discontinued 500 mg PO DAILY Levofloxacin [Levofloxacin 500 MG Tablet] Med 05/01/22 22:00 Active 500 mg PO HS Patient Care Notes (Last 24 hours) 05/01/22 14:30 Physical Therapy Note by Reagan(Amira#[id number])Batsheva PT. SEEN BY P.T. THIS A.M. PT. ALERT UT NOT ABLE TO NAME HIS LOCATION OR THE MONTH/DATE. IN BEDSIDE CHAIR UPON P.T. ARRIVAL TO ROOM. NO C/O PN. O2 SATS 91% @ REST ON RA. PT. AGREEABLE TO WORK W/ P.T. PERFORMED SIT TO STAND MOD I. AMBULATED ~ 60' W/ RW AND RZ AND O2 SATS DECREASED TO 86% ON RA. PT. STOPPED TO REST IN STANDING AND R.T. RETRIEVED O2 TANK. PT. AMBULATED ANOTHER ~ 100' ON 2 L AND MAINTAINED O2 SATS @ 92%+ WHILE AMBULATING W/ RW AND SBA. PT. REQUIRES OCCASIONAL V.C FOR PURSED LIP BREATHING. PT. IS AGREEABLE TO D/C HOME W/ [facility]IECE AND [facility] P.T. . PT. TO GO HOME W/ HOME O2 WELL. PT. HAS ROLLER WALKER AT HOME WELL. WILL CONT. P.T. 5X/WK UNTIL D/C TO ADDRESS WEAKNESS AND DECREASED ACTIVITY TOLERANCE. Initialized on 05/01/22 14:30 - END OF NOTE 05/01/22 13:39 (created 05/01/22 13:53) Nursing Note by Virginia Tate faxed dc records to [facility] Initialized on 05/01/22 13:53 - END OF NOTE 05/01/22 13:35 Nursing Note by Virginia Tate Notified [facility] that patient will dc today Initialized on 05/01/22 13:35 - END OF NOTE 05/01/22 12:59 Case Management Note by Hailey Banda ORDER FOR HOME OXYGEN AND NEB MACHINE PLACED WITH [facility] [place] WITH INSTRUCTIONS TO DELIVER TO PATIENT'S HOME. PRIMARY RN NOTIFIED TO SEND HIM WITH A PORTABLE TANK FROM [facility]. DELIVERY INSTRUCTIONS WERE PLACED ON PATIENT'S DC PAPERWORK. I WENT OVER THE DELIVERY INSTRUCTIONS WITH [facility] OVER THE PHONE EARLIER TODAY WELL. PRIMARY RN GIVEN PULSE OX TO SEND HOME WITH PATIENT AT TIME OF DC WELL. Initialized on 05/01/22 12:59 - END OF NOTE 05/01/22 10:59 Case Management Note by Hailey Banda PATIENT A&O ANSWERING QUESTIONS APPROPRIATELY. HE DOES NOT WISH TO GO TO REHAB AT THIS TIME. HE PREFERS TO RETURN HOME WITH HIS NIECE. PATIENT ALSO WALKED WITH PHYSICAL THERAPY >100 FT. S/W NIECE- SHE UNDERSTANDS THAT PATIENT WILL NOT LIKELY QUALIFY FOR A REHAB STAY AT THIS TIME. SHE AGREES TO HAVE PATIENT RETURN HOME WITH HER AT TIME OF DC. PATIENT ALREADY HAS HHC SET UP WITH [facility] FROM LAST STAY. Initialized on 05/01/22 10:59 - END OF NOTE 05/01/22 10:29 Respiratory Note by Sylvia Crisostomo PT'S O2 SAT ON ROOM AIR WHILE AT REST WAS 94%. PT'S O2 SAT ON ROOM AIR WHILE WALKING WAS 86%. PT WAS THEN PLACED ON 2LPM WHILE WALKING AND O2 SAT WAS 92-93%. Initialized on 05/01/22 10:29 - END OF NOTE Code(s): I50.9 - HEART FAILURE, UNSPECIFIED (2) Pneumonia Current Visit: Yes Status: Acute Qualifiers: Pneumonia type: due to unspecified organism Laterality: bilateral Lung location: lower lobe of lung Qualified Code(s): J18.9 - Pneumonia, unspecified organism Code(s): J18.9 - PNEUMONIA, UNSPECIFIED ORGANISM (3) Atrial fibrillation with RVR Current Visit: Yes Status: Chronic Code(s): I48.91 - UNSPECIFIED ATRIAL FIBRILLATION (4) CAD (coronary artery disease) Current Visit: Yes Status: Chronic Qualifiers: Coronary Disease-Associated Artery/Lesion type: [place] artery [place] vs. transplanted heart: [place] heart Associated angina: unspecified whether angina present Qualified Code(s): I25.10 - Atherosclerotic heart disease of [place] coronary artery without angina pectoris Code(s): I25.10 - ATHSCL HEART DISEASE OF [place] CORONARY ARTERY W/O ANG PCTRS (5) COPD exacerbation Current Visit: Yes Status: Acute Code(s): J44.1 - CHRONIC OBSTRUCTIVE PULMONARY DISEASE W (ACUTE) EXACERBATION
[2022-05-01] MEDS ORDERED: Levofloxacin 500 MG Tablet PO SCH (22:00)
== END 2022-05-01 18:00 | disposition home health service (06) | DRG 291 ==
LOC: ED 18:28 → ICU 04-28 01:25 → MED SURG 04-29 08:56
PROVIDERS: ADMIT General Practice; ATTEND General Practice
DX: I11.0 Hypertensive heart disease with heart failure (principal); J18.9 Pneumonia, unspecified organism; J44.1 Chronic obstructive pulmonary disease with (acute) exacerbation; E87.1 Hypo-osmolality and hyponatremia; I50.9 Heart failure, unspecified; I48.91 Unspecified atrial fibrillation; I25.10 Atherosclerotic heart disease of native coronary artery without angina pectoris; K74.60 Unspecified cirrhosis of liver; D64.9 Anemia, unspecified; Z72.0 Tobacco use; Z79.01 Long term (current) use of anticoagulants; Z20.828 Contact with and (suspected) exposure to other viral communicable diseases; Z79.899 Other long term (current) drug therapy; Z91.14 Patient's other noncompliance with medication regimen
CPT/HCPCS: 0241U; 36000; 36415; 36600; 51702; 71045; 80048; 80053; 82375; 82803; 83605; 83735; 83880; 84134; 84484; 85025; 85027; 93005; 93041; 94002; 94003; 94640; 94760; 94762; 96365; 96374; 96375; 96376; 97161; 97530; 99285; 99291; J1940; J1956; J2060; J2270; J7609; A9270-GY

== ENCOUNTER 2022-05-19 23:33 | Inpatient (IN) | payer MEDICARE ==
[2022-05-19] MEDS ORDERED: solu-MEDROL 125 MG, Sterile H2O 10 ml 2 ML IV ONE ×2 (23:48)
[2022-05-19] MEDS ORDERED: Zithromax 500 MG/ 250 ML NaCl Premix 500 MG/250 ML IVPB IV STA (23:48)
[2022-05-19] MEDS ORDERED: Sodium Chloride 0.9% 1000 ML 1,000 ML IV STA (23:48)
--- NOTE | 2022-05-19 23:48 | ERPHSYRPT ---
- History of Present Illness Time Seen by Provider: 05/19/22 23:48 Source: patient, EMS Exam Limitations: no limitations Physician History: Patient brought in by ambulance after being hypoxic at home with oxygen levels in the low to mid 80s. He reports mild shortness of breath but denies fever, chills or cough, congestion, wheezing, chest pain, palpitations, abdominal pain or swelling. He feels well overall, but does have severe anxiety and has been using significant amounts of hydroxyzine to help with this. Patient desires to be full code. Timing/Duration: today Activities at Onset: none Severity of Dyspnea-Max: mild Severity of Dyspnea-Current: mild Possible Cause: frequent episodes Modifying Factors: Improves With: oxygen Associated Symptoms: anxiety, cough, wheezing, No chest pain/discomfort, No edema, No fever Allergies/Adverse Reactions: Penicillins Allergy (Severe, Verified 05/19/22 23:52) Anaphylactic Reaction Home Medications: Albuterol Common Canister [Ventolin Common Canister] 1 puff IH Q4-6HPRN PRN 09/06/21 [History] Docusate Sodium [Colace] 100 mg PO DAILY PRN PRN 04/28/22 [History] Metoprolol Tartrate 50 mg [Lopressor 50 MG] 50 mg PO DAILY 04/28/22 [History] Amiodarone HCl 200 mg PO DAILY 05/20/22 [History] Hx Tetanus, Diphtheria Vaccination/Date Given: Yes Hx Influenza Vaccination/Date Given: No Hx Pneumococcal Vaccination/Date Given: No Travel Risk - Vaccine Status Have you recieved a Covid-19 vaccination: No - Vaccination Dates Comment: Unable to assess. Patient is confused. Information obtained from previous admission assessment. - Review of Systems Constitutional: No Symptoms Eyes: No Symptoms Ears, Nose, & Throat: No Symptoms Respiratory: Dyspnea, Dyspnea on Exertion (ROGERS) Cardiac: No Symptoms Abdominal/Gastrointestinal: No Symptoms Genitourinary Symptoms: No Symptoms Musculoskeletal: No Symptoms Skin: No Symptoms Neurological: No Symptoms Psychological: No Symptoms Endocrine: No Symptoms Hematologic/Lymphatic: No Symptoms Immunological/Allergic: No Symptoms All Other Systems: Reviewed and Negative - Past Medical History Pertinent Past Medical History: Yes Neurological History: Stroke ENT History: No Pertinent History Cardiac History: Arrhythmia, Congestive Heart Failure, Coronary Artery Disease, Hypertension, Other Respiratory History: COPD Endocrine Medical History: No Pertinent History, Liver Disease Musculoskeletal History: No Pertinent History GI Medical History: Cirrhosis, Other History: No Pertinent History Psycho-Social History: No Pertinent History Male Reproductive Disorders: No Pertinent History Other Medical History: Atrial Fibrillation; Venous Insufficiency - Past Surgical History Past Surgical History: Yes Neuro Surgical History: No Pertinent History Cardiac: Vascular Surgery Respiratory: No Pertinent History Gastrointestinal: No Pertinent History Genitourinary: No Pertinent History Musculoskeletal: No Pertinent History Male Surgical History: No Pertinent History Other Surgical History: stent to tono femoral artery, caroditectomy. Patient is a poor historian. History recalled from previous admission. - Social History Smoking Status: Current every day smoker How long have you smoked: years Exposure to second hand smoke: Yes Drug Use: none Patient Lives Alone: Yes Significant Family History: no pertinent family hx - Nursing Vital Signs Nursing Vital Signs: Initial Vital Signs Temperature 97.7 F 05/19/22 23:40 Pulse Rate 113 H 05/19/22 23:40 Respiratory Rate 26 H 05/19/22 23:40 Blood Pressure 135/87 05/19/22 23:40 O2 Sat by Pulse Oximetry 96 05/19/22 23:40 Pain Scale Pain Intensity 0 - Physical Exam General Appearance: no apparent distress Eye Exam: PERRL/EOMI, eyes nml inspection Ears, Nose, Throat Exam: hearing grossly normal, normal ENT inspection Neck Exam: normal inspection, non-tender Respiratory Exam: airway intact, diminished breath sounds, wheezing, No respiratory distress, No accessory muscle use Cardiovascular/Chest Exam: normal heart sounds, regular rate/rhythm Abdominal/Gastrointestinal Exam: soft, normal bowel sounds, No tenderness, No distention, No guarding, No rebound Extremity Exam: No swelling Neurologic Exam: alert, oriented x 3, cooperative Skin Exam: normal color, warm, dry, pale SpO2 Interpretation: normal SpO2: 96 O2 Delivery: Nasal Cannula (3) - Course Nursing assessment & vital signs reviewed: Yes EKG Interpreted by Me: RATE (112), LAFB, prolonged QT interval, Q-wave - Radiology Exams Chest X-ray Interpretation: Interpreted by me, Infiltrates (left sided), Other (hyperinflation) Ordered Tests: Active Orders 24 hr Category Date Time Status Party Host/Hostess STAT Care 05/19/22 23:49 Completed Code Status Order ROUTINE Care 05/20/22 03:18 Active EKG-ER Only STAT Care 05/19/22 23:48 Completed IV Care Q6H Care 05/20/22 03:18 Active IV Insertion STAT Care 05/19/22 23:[address] in Observation ROUTINE Care 05/20/22 03:18 Active Pulse Oximetry (ED) STAT Care 05/19/22 23:48 Completed Danin Mcclelland ROUTINE Care 05/20/22 03:18 Active Weight,Daily 0600 Care 05/20/22 03:18 Active NPO Diet 05/20/22 03:19 Active CHEST 1 VIEW (PORTABLE) Stat Exams 05/19/22 23:48 Taken BLOOD CULTURE Stat Lab 05/20/22 00:32 Received BMP AM.LAB Lab 05/20/22 06:00 Received CBC AM.LAB Lab 05/20/22 06:00 Completed Lactic Acid Stat Lab 05/19/22 23:48 Completed MAGNESIUM AM.LAB Lab 05/20/22 06:00 Received TROPONIN Q4H Lab 05/20/22 04:39 Completed TROPONIN Q4H Lab 05/20/22 06:00 Received Pulse Oximetry CONTINUOUS RT 05/20/22 03:18 Active Respiratory Therapy Consult ROUTINE RT 05/20/22 03:18 Completed Transfer Order Routine Transfer 05/20/22 Completed Medication Summary Generic Name Dose Route Start Last Admin Trade Name Rika PRN Reason Stop Dose Admin Albuterol/Ipratropium 3 ml 05/20/22 03:18 05/20/22 04:04 Ipratropium/Albuterol Sulfate 3 Ml Ampul.Neb IH 06/19/22 03:17 3 ml Q4HRT VERNA Administration Methylprednisolone Sodium 0 mg 05/20/22 06:00 05/20/22 06:26 Succinate 60 mg/ Sterile Water IV 06/19/22 05:59 60 mg 2 ml Q6HT VERNA Administration Doxycycline Hyclate 100 mg 05/20/22 10:00 Doxycycline Hyclate 100 Mg Tablet PO 06/19/22 09:59 BID VERNA Famotidine 20 mg 05/20/22 10:00 Famotidine 20 Mg/1 Vial IV 06/19/22 09:59 Q12HT VERNA Sodium Chloride 1,000 mls @ 50 mls/hr 05/20/22 03:18 Sodium Chloride 0.9% 1000 Ml IV 06/19/22 03:17 .Q20H VERNA Discontinued Medications Generic Name Dose Route Start Last Admin Trade Name Rika PRN Reason Stop Dose Admin Aspirin 325 mg 05/20/22 23:58 Aspirin 325 Mg Tablet.Ec PO 05/20/22 23:59 STAT ONE Aspirin 324 mg 05/20/22 00:04 05/20/22 00:06 Aspirin 81 Mg Tab.Chew PO 05/20/22 00:05 324 mg STAT ONE Administration Aspirin Confirm 05/20/22 00:03 Aspirin 81 Mg Tab.Chew Administered 05/20/22 00:04 Dose 324 mg .ROUTE .STK-MED ONE Methylprednisolone Sodium 0 mg 05/19/22 23:48 05/20/22 00:00 Succinate 125 mg/ Sterile IV 05/19/22 23:49 125 mg Water 2 ml STAT ONE Administration Doxycycline Hyclate Confirm 05/20/22 00:03 Doxycycline Hyclate 100 Mg/Vial Injection Administered 05/20/22 00:04 Dose 100 mg IV .STK-MED ONE Sodium Chloride 1,000 mls @ 999 mls/hr 05/19/22 23:48 05/20/22 02:54 Sodium Chloride 0.9% 1000 Ml IV 05/20/22 00:48 Infused .Q1H1M STA Infusion Azithromycin 500 mg in 250 mls @ 250 mls/hr 05/19/22 23:48 05/20/22 00:01 Zithromax 500 Mg/ 250 Ml Nacl Premix IV 05/20/22 00:47 Not Given STAT STA Doxycycline Hyclate 100 mg/ 100 mls @ 100 mls/hr 05/20/22 10:00 05/20/22 00:12 Dextrose IV 06/19/22 09:59 100 mls/hr Q12HT VERNA Administration Azithromycin Confirm 05/19/22 23:59 Zithromax 500 Mg/ 250 Ml Nacl Premix Administered 05/20/22 00:00 Dose 500 mg in 250 mls @ ud IV .STK-MED ONE Sodium Chloride Confirm 05/19/22 23:59 Sodium Chloride 0.9% 1000 Ml Administered 05/20/22 00:00 Dose 1,000 mls @ ud .ROUTE .STK-MED ONE Dextrose Confirm 05/20/22 00:03 D5w 100ml Mini Bag 100 Ml Administered 05/20/22 00:04 Dose 100 mls @ ud IV .STK-MED ONE Lorazepam 2 mg 05/20/22 01:29 05/20/22 02:24 Lorazepam 2 Mg/1 Ml 2 Mg Vial IV 05/20/22 01:30 2 mg STAT ONE Administration Lorazepam Confirm 05/20/22 02:20 Lorazepam 2 Mg/1 Ml 2 Mg Vial Administered 05/20/22 02:21 Dose 2 mg .ROUTE .STK-MED ONE Methylprednisolone Sodium Succinate Confirm 05/19/22 23:59 Methylprednis Sod Succ 125 Mg/2 Ml Vial Administered 05/20/22 00:00 Dose 125 mg .ROUTE .STK-MED ONE Methylprednisolone Sodium Succinate Confirm 05/20/22 06:10 Methylprednis Sod Succ 125 Mg/2 Ml Vial Administered 05/20/22 06:11 Dose 125 mg .ROUTE .STK-MED ONE Sterile Water Confirm 05/19/22 23:59 Water For Injection,Sterile 10 Ml Vial Administered 05/20/22 00:00 Dose 10 ml IJ .STK-MED ONE Sterile Water Confirm 05/20/22 06:10 Water For Injection,Sterile 10 Ml Vial Administered 05/20/22 06:11 Dose 10 ml IJ .STK-MED ONE Lab/Rad Data: Laboratory Result Diagrams 05/19/22 00:32 05/19/22 00:32 Laboratory Results 05/20/22 05/19/22 05/19/22 Range/Units 00:27 00:32 00:32 WBC (4.0-10.5) x10^3/uL RBC (4.1-5.6) x10^6/uL Hgb (12.5-18.0) g/dL Hct (42-50) % MCV (78-100) fL MCH (26-32) pg MCHC (32-36) g/dL RDW (11.5-14.0) % Plt Count (150-450) x10^3/uL MPV (7.5-11.0) fL Gran % (36.0-66.0) % Immature Gran % (Auto) (0.00-0.4) % Nucleat RBC Rel Count (0.00-0.1) % Eos # (Auto) (0-0.5) x10^3/uL Immature Gran # (Auto) (0.00-0.03) x10^3u/L Absolute Lymphs (auto) (1.0-4.6) x10^3/uL Absolute Monos (auto) (0.0-1.3) x10^3/uL Absolute Nucleated RBC (0.00-0.01) x10^3u/L Lymphocytes % (24.0-44.0) % Monocytes % (0.0-12.0) % Eosinophils % (0.00-5.0) % Basophils % (0.0-0.4) % Absolute Granulocytes (1.4-6.9) x10^3/uL Basophils # (0-0.4) x10^3/uL D-Dimer 0.27 (0.0-0.50) mg/L Sodium (137-145) mmol/L Potassium (3.5-5.1) mmol/L Chloride (98-107) mmol/L Carbon Dioxide (22-30) mmol/L Anion Gap (5-15) MEQ/L BUN (9-20) mg/dL Creatinine (0.66-1.25) mg/dL Estimated GFR ML/MIN Glucose (74-106) mg/dL Lactic Acid 1.2 (0.4-2.0) Calcium (8.4-10.2) mg/dL Magnesium (1.6-2.3) mg/dL Total Bilirubin (0.2-1.3) mg/dL AST (17-59) U/L ALT (0-50) U/L Alkaline Phosphatase (38-126) U/L Troponin I (0.000-0.034) ng/mL Serum Total Protein (6.3-8.2) g/dL Albumin (3.5-5.0) g/dL TSH 3rd Generation 3.740 (0.47-4.68) mIU/L Influenza Type A Ag (NEGATIVE) Influenza Type B Ag (NEGATIVE) RSV (PCR) (Negative) SARS-CoV-2 (PCR) (NEGATIVE) 05/19/22 05/19/22 05/19/22 Range/Units 00:32 00:32 00:32 WBC 8.5 (4.0-10.5) x10^3/uL RBC 3.95 L (4.1-5.6) x10^6/uL Hgb 10.5 L (12.5-18.0) g/dL Hct 33.0 L (42-50) % MCV 83.5 (78-100) fL MCH 26.6 (26-32) pg MCHC 31.8 L (32-36) g/dL RDW 15.8 H (11.5-14.0) % Plt Count 236 (150-450) x10^3/uL MPV 10.0 (7.5-11.0) fL Gran % 60.0 (36.0-66.0) % Immature Gran % (Auto) 0.4 (0.00-0.4) % Nucleat RBC Rel Count 0.0 (0.00-0.1) % Eos # (Auto) 0.05 (0-0.5) x10^3/uL Immature Gran # (Auto) 0.03 (0.00-0.03) x10^3u/L Absolute Lymphs (auto) 2.13 (1.0-4.6) x10^3/uL Absolute Monos (auto) 1.16 (0.0-1.3) x10^3/uL Absolute Nucleated RBC 0.00 (0.00-0.01) x10^3u/L Lymphocytes % 25.1 (24.0-44.0) % Monocytes % 13.7 H (0.0-12.0) % Eosinophils % 0.6 (0.00-5.0) % Basophils % 0.2 (0.0-0.4) % Absolute Granulocytes 5.09 (1.4-6.9) x10^3/uL Basophils # 0.02 (0-0.4) x10^3/uL D-Dimer (0.0-0.50) mg/L Sodium 130 L (137-145) mmol/L Potassium 3.5 (3.5-5.1) mmol/L Chloride 90 L (98-107) mmol/L Carbon Dioxide 32 H (22-30) mmol/L Anion Gap 10.9 (5-15) MEQ/L BUN 17 (9-20) mg/dL Creatinine 1.01 (0.66-1.25) mg/dL Estimated GFR > 60.0 ML/MIN Glucose 105 (74-106) mg/dL Lactic Acid (0.4-2.0) Calcium 8.1 L (8.4-10.2) mg/dL Magnesium 2.0 (1.6-2.3) mg/dL Total Bilirubin 0.60 (0.2-1.3) mg/dL AST 79 H (17-59) U/L ALT 80 H (0-50) U/L Alkaline Phosphatase 121 (38-126) U/L Troponin I 0.194 H* (0.000-0.034) ng/mL Serum Total Protein 7.9 (6.3-8.2) g/dL Albumin 4.3 (3.5-5.0) g/dL TSH 3rd Generation (0.47-4.68) mIU/L Influenza Type A Ag NEGATIVE (NEGATIVE) Influenza Type B Ag NEGATIVE (NEGATIVE) RSV (PCR) NEGATIVE (Negative) SARS-CoV-2 (PCR) NEGATIVE (NEGATIVE) - Progress Progress: unchanged Air Movement: fair Progress Note: Patient's hemoglobin came back at 10.5, sodium 130, potassium 3.5 to 40 KCL was given. Magnesium was 2, D-dimer was within normal range and AST and ALT were elevated at 79 and 80 respectively. Patient's initial troponin was 0.194 likely demand ischemia, but has a heart score 6. due to COPD exacerbation in elevated troponin with heart score 6 decision was made to admit the patient. I discussed case with Dr. Sutton who agrees to admit the patient for observation. 05/20/22 06:48 Blood Culture(s) Obtained: Yes Antibiotics given: Yes Discussed with : Esvin Will see patient in: hospital (observation) Counseled pt/family regarding: lab results, diagnosis, rad results Medical Desision Making - Diagnostic Testing Diagnostic Testing: Diagnostic tests were ordered,analyzed, and reviewed by me and used in my medical decision making for this patient. Radiologic studies (if ordered) were read by me initially then discussed with the radiologist . - Risk of complications The pt has a high risk of morbidity or mortality based on: Decision regarding hospitilization or escalation of hosp level of care - Departure Departure Disposition: Observation Clinical Impression: COPD exacerbation, Acute and chronic respiratory failure with hypoxia, Elevated troponin I level, Anemia Condition: Stable Critical Care Time: No
[2022-05-19] MEDS ORDERED: Sodium Chloride 0.9% 1000 ML 1,000 ML ONE (23:59)
[2022-05-19] MEDS ORDERED: Sterile H2O 10 ml IJ ONE (23:59)
[2022-05-19] MEDS ORDERED: Zithromax 500 MG/ 250 ML NaCl Premix 0 MG/0 ML IVPB IV ONE (23:59)
[2022-05-19] MEDS ORDERED: solu-MEDROL ONE (23:59)
[2022-05-20] MEDS ORDERED: D5w 100ML Mini Bag 100 ML 100 ML IV ONE (00:03)
[2022-05-20] MEDS ORDERED: BABY ASPIRIN 81 MG CHEW ONE (00:03)
[2022-05-20] MEDS ORDERED: VIBRAMYCIN 100 MG IV ONE (00:03)
[2022-05-20] MEDS ORDERED: BABY ASPIRIN 81 MG CHEW PO ONE (00:04)
[2022-05-20 00:45] LABS: Absolute Neutrophil Ct (ANC) 5.09 x10^3/uL (1.4-6.9); BASOPHIL % 0.2 % (0.0-0.4); Basophil (Absolute #) 0.02 x10^3/uL (0-0.4); Eosinophil % 0.6 % (0.00-5.0); Eosinophil (Absolute #) 0.05 x10^3/uL (0-0.5); Hemoglobin 10.5 g/dL (12.5-18.0); IMMATURE GRAN # 0.03 x10^3u/L (0.00-0.03); IMMATURE GRAN % 0.4 % (0.00-0.4); Lymphocyte (Absolute #) 2.13 x10^3/uL (1.0-4.6); Lymphocytes % 25.1 % (24.0-44.0); Mean Cell Volume 83.5 fL (78-100); Mean Corpuscular Hemoglobin 26.6 pg (26-32); Mean Corpuscular Hgb Concent. 31.8 g/dL (32-36); Monocyte (Absolute #) 1.16 x10^3/uL (0.0-1.3); Monocytes % 13.7 % (0.0-12.0); Platelet Count 236 x10^3/uL (150-450); Red Blood Count 3.95 x10^6/uL (4.1-5.6); Red Cell Distribution Width 15.8 % (11.5-14.0); White Blood Count 8.5 x10^3/uL (4.0-10.5)
[2022-05-20 01:07] LABS: ALBUMIN 4.3 g/dL (3.5-5.0); ALKALINE PHOSPHATASE 121 U/L (38-126); ANION GAP 10.9 MEQ/L (5-15); BLOOD UREA NITROGEN 17 mg/dL (9-20); CHLORIDE 90 mmol/L (98-107); Calcium 8.1 mg/dL (8.4-10.2); Carbon Dioxide 32 mmol/L (22-30); Creatinine 1 1.01 mg/dL (0.66-1.25); EST GLOMERULAR FILTRATION RATE > 60.0 ML/MIN; Glucose 105 mg/dL (74-106); Potassium 3.5 mmol/L (3.5-5.1); SGOT/AST 79 U/L (17-59); SGPT/ALT 80 U/L (0-50); SODIUM 130 mmol/L (137-145); Total Protein 7.9 g/dL (6.3-8.2)
[2022-05-20 01:20] LABS: TROPONIN 0.194 ng/mL (0.000-0.034)
[2022-05-20 01:21] LABS: INFLUENZA A NEGATIVE (NEGATIVE); INFLUENZA B NEGATIVE (NEGATIVE); RESPIRATORY SYNCTIAL VIRUS NEGATIVE (Negative); SARS-CoV-2 Xpert Express NEGATIVE (NEGATIVE)
[2022-05-20] MEDS ORDERED: Ativan 2 MG/1 ML VIAL IV ONE (01:29)
[2022-05-20] MEDS ORDERED: Ativan 2 MG/1 ML VIAL ONE (02:20)
[2022-05-20] MEDS: DUONEB 0.5-3 MG/3 ml Neb IH SCH ×6 (04:04→23:15)
[2022-05-20 04:16] LABS: A-aADO2 185; ABG HEMOGLOBIN 11.1; ABG POTASSIUM 3.6 (3.5-5.1); ABG SITE RIGHT BRACHIAL; ARTERIAL BLD GAS O2 SATURATION 92.7 % (95-100); ARTERIAL BLOOD GAS BASE EXCESS 0.1 (-2.0-2.0); ARTERIAL BLOOD GAS FIO2 44 %; ARTERIAL BLOOD GAS PCO2 52 mmHg (35-45); ARTERIAL BLOOD GAS PO2 64 mmHg (75-100); ARTERIAL BLOOD GAS pH 7.32 (7.35-7.45); CARBOXYHEMOGLOBIN 4.7 % THgb (0.0-6.9); HCO3- 26.8 (22-28); HGB O2 SAT 88.2 g/dF (94-100); Methhemoglobin 0.3 % (1.4-1.5); paO2 pAO1 0.26
[2022-05-20] MEDS ORDERED: solu-MEDROL ONE (06:10)
[2022-05-20] MEDS ORDERED: Sterile H2O 10 ml IJ ONE (06:10)
[2022-05-20 06:11] LABS: Hematocrit 36.2 % (42-50); Hemoglobin 11.2 g/dL (12.5-18.0); Mean Cell Volume 85.2 fL (78-100); Mean Corpuscular Hemoglobin 26.4 pg (26-32); Mean Corpuscular Hgb Concent. 30.9 g/dL (32-36); Platelet Count 308 x10^3/uL (150-450); Red Blood Count 4.25 x10^6/uL (4.1-5.6); Red Cell Distribution Width 15.8 % (11.5-14.0); White Blood Count 10.8 x10^3/uL (4.0-10.5)
[2022-05-20] MEDS: solu-MEDROL 60 MG, Sterile H2O 10 ml 2 ML IV SCH ×6 (06:26→17:04)
[2022-05-20 06:46] LABS: ANION GAP 13.4 MEQ/L (5-15); Calcium 7.9 mg/dL (8.4-10.2); Creatinine 1 1.3 mg/dL (0.66-1.25); EST GLOMERULAR FILTRATION RATE 58.2 ML/MIN; MAGNESIUM 2.2 mg/dL (1.6-2.3); Potassium 3.7 mmol/L (3.5-5.1)
[2022-05-20] MEDS: Ativan 2 MG/1 ML VIAL IV PRN ×2 (07:48→20:17)
--- NOTE | 2022-05-20 07:57 | PCM.HP ---
History of Present Illness - Chief Complaint Chief Complaint: shortness of breath at home, for 2-3 days History of Present Illness: is a 71 year old male.Patient brought in by ambulance after being hypoxic at home with oxygen levels in the low to mid 80s. He reports mild shortness of breath but denies fever, chills or cough, congestion, wheezing, chest pain, palpitations, abdominal pain or swelling. He feels well overall, but does have severe anxiety and has been using significant amounts of hydroxyzine to help with this. - Review of Systems Constitutional: Lethargy, No Fever, No Chills Eyes: No Symptoms Ears, Nose, & Throat: No Symptoms Respiratory: Cough, Orthopnea, Short Of Breath, Wheezing Cardiac: No Chest Pain, No Edema, No Syncope Abdominal/Gastrointestinal: No Abdominal Pain, No Nausea, No Vomiting, No Diarrhea Genitourinary Symptoms: No Dysuria Musculoskeletal: No Back Pain, No Neck Pain Skin: No Rash Neurological: No Dizziness, No Focal Weakness, No Sensory Changes Psychological: No Symptoms Endocrine: No Symptoms Hematologic/Lymphatic: No Symptoms Immunological/Allergic: No Symptoms Medications & Allergies Home Medications: Home Medication List Albuterol Common Canister [Ventolin Common Canister] 1 puff IH Q4-6HPRN PRN 09/06/21 [History Confirmed 05/20/22] Apixaban [Eliquis 5 mg Tablet] 5 mg PO BID #30 tablet 04/25/22 [Rx Confirmed 05/20/22] Docusate Sodium [Colace] 100 mg PO DAILY PRN PRN 04/28/22 [History Confirmed 05/20/22] Metoprolol Tartrate 50 mg [Lopressor 50 MG] 50 mg PO DAILY 04/28/22 [History Confirmed 05/20/22] Albuterol 2.5 mg/3 ml Neb [Proventil 2.5 mg/3 ml Neb] 2.5 mg IH Q4H PRN PRN #30 packet 05/01/22 [Rx Confirmed 05/20/22] Albuterol/Ipratropium 3ml Neb* [DUONEB 0.5-3 MG/3 ml Neb] 3 ml IH QIDRT #30 packet 05/01/22 [Rx Confirmed 05/20/22] Furosemide 40 mg [Lasix 40 MG] 40 mg PO DAILY #30 tablet 05/01/22 [Rx Confirmed 05/20/22] Hydroxyzine HCl 25 mg [Atarax 25 mg] 25 mg PO TID #30 05/01/22 [Rx Confirmed 05/20/22] Amiodarone HCl 200 mg PO DAILY 05/20/22 [History Confirmed 05/20/22] Allergies/Adverse Reactions: Allergies Allergy/AdvReac Type Severity Reaction Status Date / Time Penicillins Allergy Severe Anaphylactic Verified 05/19/22 23:52 Reaction - Past Medical History Past Medical History: Yes Neurological History: Stroke ENT History: No Pertinent History Cardiac History: Arrhythmia, Congestive Heart Failure, Coronary Artery Disease, Hypertension, Other Respiratory History: COPD Endocrine Medical History: No Pertinent History, Liver Disease Musculoskelatal History: No Pertinent History GI Medical History: Cirrhosis, Other History: No Pertinent History Pyscho-Social History: No Pertinent History Male Reproductive Disorders: No Pertinent History Comment: Atrial Fibrillation; Venous Insufficiency - Past Surgical History Past Surgical History: Yes Neuro Surgical History: No Pertinent History Cardiac History: Vascular Surgery Respiratory Surgery: No Pertinent History GI Surgical History: No Pertinent History Genitourinary Surgical Hx: No Pertinent History Musculskeletal Surgical Hx: No Pertinent History Male Surgical History: No Pertinent History Other Surgical History: stent to tono femoral artery, caroditectomy. Patient is a poor historian. History recalled from previous admission. - Social History Smoking Status: Current every day smoker How long have you smoked: years Exposure to second hand smoke: Yes Alcohol: None Drug Use: none Significant Family History: no pertinent family hx - Physical Exam Vital Signs: Vital Signs - 24 hr Temp Pulse Resp BP Pulse Ox 05/20/22 07:38 107 H 24 94 L 05/20/22 07:25 97.6 F 102 H 15 119/65 99 05/20/22 06:51 96 05/20/22 04:04 108 H 26 H 95 05/20/22 03:18 78 L 05/20/22 03:00 92 H 126/94 88 L 05/20/22 02:00 97.9 F 110 H 24 109/90 90 L 05/20/22 00:00 111 H 116/76 93 L 05/19/22 23:53 96 05/19/22 23:42 28 H 96 05/19/22 23:40 97.7 F 113 H 26 H 135/87 96 General Appearance: no apparent distress, moderate distress, alert Neurologic Exam: alert, sensation nml, No motor deficits Eye Exam: PERRL/EOMI, eyes nml inspection Ears, Nose, Throat Exam: normal ENT inspection, TMs normal, pharynx normal, moist mucous membranes Neck Exam: normal inspection, non-tender, supple, full range of motion Respiratory Exam: diminished breath sounds, crackles/rales, rhonchi, wheezing, No respiratory distress Cardiovascular Exam: regular rate/rhythm, normal heart sounds, normal peripheral pulses Gastrointestinal/Abdomen Exam: soft, normal bowel sounds, No tenderness, No mass Back Exam: normal inspection, normal range of motion, No CVA tenderness, No vertebral tenderness Extremity Exam: normal inspection, normal range of motion, pelvis stable Skin Exam: normal color, warm, dry, No rash Lymphatic Exam: No adenopathy Results - Labs Lab/Micro Results: Lab Results-Last 24 Hours 05/19/22 05/19/22 05/19/22 Range/Units 00:32 00:32 00:32 WBC 8.5 (4.0-10.5) x10^3/uL RBC 3.95 L (4.1-5.6) x10^6/uL Hgb 10.5 L (12.5-18.0) g/dL Hct 33.0 L (42-50) % MCV 83.5 (78-100) fL MCH 26.6 (26-32) pg MCHC 31.8 L (32-36) g/dL RDW 15.8 H (11.5-14.0) % Plt Count 236 (150-450) x10^3/uL MPV 10.0 (7.5-11.0) fL Gran % 60.0 (36.0-66.0) % Immature Gran % (Auto) 0.4 (0.00-0.4) % Nucleat RBC Rel Count 0.0 (0.00-0.1) % Eos # (Auto) 0.05 (0-0.5) x10^3/uL Immature Gran # (Auto) 0.03 (0.00-0.03) x10^3u/L Absolute Lymphs (auto) 2.13 (1.0-4.6) x10^3/uL Absolute Monos (auto) 1.16 (0.0-1.3) x10^3/uL Absolute Nucleated RBC 0.00 (0.00-0.01) x10^3u/L Lymphocytes % 25.1 (24.0-44.0) % Monocytes % 13.7 H (0.0-12.0) % Eosinophils % 0.6 (0.00-5.0) % Basophils % 0.2 (0.0-0.4) % Absolute Granulocytes 5.09 (1.4-6.9) x10^3/uL Basophils # 0.02 (0-0.4) x10^3/uL D-Dimer (0.0-0.50) mg/L Puncture Site pCO2 (35-45) mmHg pO2 (75-100) mmHg Base Excess (-2.0-2.0) O2 Saturation (94-100) g/dF ABG pH (7.35-7.45) ABG HCO3 (22-28) ABG O2 Sat (Measured) (95-100) % Clay Test A-a Gradient a/A Ratio Hemoglobin Carboxyhemoglobin (0.0-6.9) % THgb Methemoglobin (1.4-1.5) % Temperature C POC O2 Flow Rate % Sodium 130 L (137-145) mmol/L Potassium 3.5 (3.5-5.1) mmol/L Chloride 90 L (98-107) mmol/L Carbon Dioxide 32 H (22-30) mmol/L Anion Gap 10.9 (5-15) MEQ/L BUN 17 (9-20) mg/dL Creatinine 1.01 (0.66-1.25) mg/dL Estimated GFR > 60.0 ML/MIN Glucose 105 (74-106) mg/dL Lactic Acid (0.4-2.0) Calcium 8.1 L (8.4-10.2) mg/dL Magnesium 2.0 (1.6-2.3) mg/dL Total Bilirubin 0.60 (0.2-1.3) mg/dL AST 79 H (17-59) U/L ALT 80 H (0-50) U/L Alkaline Phosphatase 121 (38-126) U/L Troponin I 0.194 H* (0.000-0.034) ng/mL NT-Pro-B Natriuret Pep (0-900) pg/mL Serum Total Protein 7.9 (6.3-8.2) g/dL Albumin 4.3 (3.5-5.0) g/dL TSH 3rd Generation (0.47-4.68) mIU/L Influenza Type A Ag NEGATIVE (NEGATIVE) Influenza Type B Ag NEGATIVE (NEGATIVE) RSV (PCR) NEGATIVE (Negative) SARS-CoV-2 (PCR) NEGATIVE (NEGATIVE) 05/19/22 05/19/22 05/20/22 Range/Units 00:32 00:32 00:27 WBC (4.0-10.5) x10^3/uL RBC (4.1-5.6) x10^6/uL Hgb (12.5-18.0) g/dL Hct (42-50) % MCV (78-100) fL MCH (26-32) pg MCHC (32-36) g/dL RDW (11.5-14.0) % Plt Count (150-450) x10^3/uL MPV (7.5-11.0) fL Gran % (36.0-66.0) % Immature Gran % (Auto) (0.00-0.4) % Nucleat RBC Rel Count (0.00-0.1) % Eos # (Auto) (0-0.5) x10^3/uL Immature Gran # (Auto) (0.00-0.03) x10^3u/L Absolute Lymphs (auto) (1.0-4.6) x10^3/uL Absolute Monos (auto) (0.0-1.3) x10^3/uL Absolute Nucleated RBC (0.00-0.01) x10^3u/L Lymphocytes % (24.0-44.0) % Monocytes % (0.0-12.0) % Eosinophils % (0.00-5.0) % Basophils % (0.0-0.4) % Absolute Granulocytes (1.4-6.9) x10^3/uL Basophils # (0-0.4) x10^3/uL D-Dimer 0.27 (0.0-0.50) mg/L Puncture Site pCO2 (35-45) mmHg pO2 (75-100) mmHg Base Excess (-2.0-2.0) O2 Saturation (94-100) g/dF ABG pH (7.35-7.45) ABG HCO3 (22-28) ABG O2 Sat (Measured) (95-100) % Clay Test A-a Gradient a/A Ratio Hemoglobin Carboxyhemoglobin (0.0-6.9) % THgb Methemoglobin (1.4-1.5) % Temperature C POC O2 Flow Rate % Sodium (137-145) mmol/L Potassium (3.5-5.1) mmol/L Chloride (98-107) mmol/L Carbon Dioxide (22-30) mmol/L Anion Gap (5-15) MEQ/L BUN (9-20) mg/dL Creatinine (0.66-1.25) mg/dL Estimated GFR ML/MIN Glucose (74-106) mg/dL Lactic Acid 1.2 (0.4-2.0) Calcium (8.4-10.2) mg/dL Magnesium (1.6-2.3) mg/dL Total Bilirubin (0.2-1.3) mg/dL AST (17-59) U/L ALT (0-50) U/L Alkaline Phosphatase (38-126) U/L Troponin I (0.000-0.034) ng/mL NT-Pro-B Natriuret Pep (0-900) pg/mL Serum Total Protein (6.3-8.2) g/dL Albumin (3.5-5.0) g/dL TSH 3rd Generation 3.740 (0.47-4.68) mIU/L Influenza Type A Ag (NEGATIVE) Influenza Type B Ag (NEGATIVE) RSV (PCR) (Negative) SARS-CoV-2 (PCR) (NEGATIVE) 05/20/22 05/20/22 05/20/22 Range/Units 03:40 04:39 06:00 WBC (4.0-10.5) x10^3/uL RBC (4.1-5.6) x10^6/uL Hgb (12.5-18.0) g/dL Hct (42-50) % MCV (78-100) fL MCH (26-32) pg MCHC (32-36) g/dL RDW (11.5-14.0) % Plt Count (150-450) x10^3/uL MPV (7.5-11.0) fL Gran % (36.0-66.0) % Immature Gran % (Auto) (0.00-0.4) % Nucleat RBC Rel Count (0.00-0.1) % Eos # (Auto) (0-0.5) x10^3/uL Immature Gran # (Auto) (0.00-0.03) x10^3u/L Absolute Lymphs (auto) (1.0-4.6) x10^3/uL Absolute Monos (auto) (0.0-1.3) x10^3/uL Absolute Nucleated RBC (0.00-0.01) x10^3u/L Lymphocytes % (24.0-44.0) % Monocytes % (0.0-12.0) % Eosinophils % (0.00-5.0) % Basophils % (0.0-0.4) % Absolute Granulocytes (1.4-6.9) x10^3/uL Basophils # (0-0.4) x10^3/uL D-Dimer (0.0-0.50) mg/L Puncture Site RIGHT BRACHIAL pCO2 52 H (35-45) mmHg pO2 64 L (75-100) mmHg Base Excess 0.1 (-2.0-2.0) O2 Saturation 88.2 L (94-100) g/dF ABG pH 7.32 L (7.35-7.45) ABG HCO3 26.8 (22-28) ABG O2 Sat (Measured) 92.7 L (95-100) % Clay Test NOT APPLICABLE A-a Gradient 185 a/A Ratio 0.26 Hemoglobin 11.1 Carboxyhemoglobin 4.7 (0.0-6.9) % THgb Methemoglobin 0.3 L (1.4-1.5) % Temperature 37.0 C POC O2 Flow Rate 44 % Sodium (137-145) mmol/L Potassium 3.6 (3.5-5.1) mmol/L Chloride (98-107) mmol/L Carbon Dioxide (22-30) mmol/L Anion Gap (5-15) MEQ/L BUN (9-20) mg/dL Creatinine (0.66-1.25) mg/dL Estimated GFR ML/MIN Glucose (74-106) mg/dL Lactic Acid (0.4-2.0) Calcium (8.4-10.2) mg/dL Magnesium (1.6-2.3) mg/dL Total Bilirubin (0.2-1.3) mg/dL AST (17-59) U/L ALT (0-50) U/L Alkaline Phosphatase (38-126) U/L Troponin I 0.170 H* 0.176 H* (0.000-0.034) ng/mL NT-Pro-B Natriuret Pep (0-900) pg/mL Serum Total Protein (6.3-8.2) g/dL Albumin (3.5-5.0) g/dL TSH 3rd Generation (0.47-4.68) mIU/L Influenza Type A Ag (NEGATIVE) Influenza Type B Ag (NEGATIVE) RSV (PCR) (Negative) SARS-CoV-2 (PCR) (NEGATIVE) 05/20/22 05/20/22 Range/Units 06:00 06:00 WBC 10.8 H (4.0-10.5) x10^3/uL RBC 4.25 (4.1-5.6) x10^6/uL Hgb 11.2 L (12.5-18.0) g/dL Hct 36.2 L (42-50) % MCV 85.2 (78-100) fL MCH 26.4 (26-32) pg MCHC 30.9 L (32-36) g/dL RDW 15.8 H (11.5-14.0) % Plt Count 308 (150-450) x10^3/uL MPV 10.0 (7.5-11.0) fL Gran % (36.0-66.0) % Immature Gran % (Auto) (0.00-0.4) % Nucleat RBC Rel Count (0.00-0.1) % Eos # (Auto) (0-0.5) x10^3/uL Immature Gran # (Auto) (0.00-0.03) x10^3u/L Absolute Lymphs (auto) (1.0-4.6) x10^3/uL Absolute Monos (auto) (0.0-1.3) x10^3/uL Absolute Nucleated RBC (0.00-0.01) x10^3u/L Lymphocytes % (24.0-44.0) % Monocytes % (0.0-12.0) % Eosinophils % (0.00-5.0) % Basophils % (0.0-0.4) % Absolute Granulocytes (1.4-6.9) x10^3/uL Basophils # (0-0.4) x10^3/uL D-Dimer (0.0-0.50) mg/L Puncture Site pCO2 (35-45) mmHg pO2 (75-100) mmHg Base Excess (-2.0-2.0) O2 Saturation (94-100) g/dF ABG pH (7.35-7.45) ABG HCO3 (22-28) ABG O2 Sat (Measured) (95-100) % Clay Test A-a Gradient a/A Ratio Hemoglobin Carboxyhemoglobin (0.0-6.9) % THgb Methemoglobin (1.4-1.5) % Temperature C POC O2 Flow Rate % Sodium 130 L (137-145) mmol/L Potassium 3.7 (3.5-5.1) mmol/L Chloride 91 L (98-107) mmol/L Carbon Dioxide 29 (22-30) mmol/L Anion Gap 13.4 (5-15) MEQ/L BUN 19 (9-20) mg/dL Creatinine 1.30 H (0.66-1.25) mg/dL Estimated GFR 58.2 ML/MIN Glucose 200 H (74-106) mg/dL Lactic Acid (0.4-2.0) Calcium 7.9 L (8.4-10.2) mg/dL Magnesium 2.2 (1.6-2.3) mg/dL Total Bilirubin (0.2-1.3) mg/dL AST (17-59) U/L ALT (0-50) U/L Alkaline Phosphatase (38-126) U/L Troponin I (0.000-0.034) ng/mL NT-Pro-B Natriuret Pep 8740 H (0-900) pg/mL Serum Total Protein (6.3-8.2) g/dL Albumin (3.5-5.0) g/dL TSH 3rd Generation (0.47-4.68) mIU/L Influenza Type A Ag (NEGATIVE) Influenza Type B Ag (NEGATIVE) RSV (PCR) (Negative) SARS-CoV-2 (PCR) (NEGATIVE) - Radiology Impressions Radiology Exams & Impressions: Radiology Procedures Category Date Time Status CHEST 1 VIEW (PORTABLE) Stat Exams 05/19/22 23:48 Taken - Other Procedures and Tests Respiratory Therapy 05/20/22 03:25 Oxygen NASAL CANNULA 2 lpm 05/20/22 03:35 Respiratory Therapy Assessment DAILY 05/20/22 04:18 BiPap/CPAP ROUTINE Assessment/Plan (1) COPD exacerbation Current Visit: Yes Status: Acute Assessment & Plan: Chief Complaint Diagnosis COPD Exac & SOB Allergies Allergy/AdvReac Type Severity Reaction Status Date / Time Penicillins Allergy Severe Anaphylactic Verified 05/19/22 23:52 Reaction Vital Signs (Last 24 hours) Temp Pulse Resp BP Pulse Ox 05/20/22 07:38 107 H 24 94 L 05/20/22 07:25 97.6 F 102 H 15 119/65 99 05/20/22 06:51 96 05/20/22 04:04 108 H 26 H 95 05/20/22 03:18 78 L 05/20/22 03:00 92 H 126/94 88 L 05/20/22 02:00 97.9 F 110 H 24 109/90 90 L 05/20/22 00:00 111 H 116/76 93 L 05/19/22 23:53 96 05/19/22 23:42 28 H 96 05/19/22 23:40 97.7 F 113 H 26 H 135/87 96 Home Medications Medication Instructions Recorded Confirmed Last Taken Type Amiodarone HCl 200 mg PO DAILY 05/20/22 05/20/22 Unknown History Current Medications Generic Name Dose Route Start Last Admin Trade Name Freq PRN Reason Stop Dose Admin Albuterol/Ipratropium 3 ml 05/20/22 03:18 05/20/22 07:27 Ipratropium/Albuterol Sulfate 3 Ml Ampul.Neb IH 06/19/22 03:17 3 ml Q4HRT VERNA Administration Methylprednisolone Sodium 0 mg 05/20/22 06:00 05/20/22 06:26 Succinate 60 mg/ Sterile Water IV 06/19/22 05:59 60 mg 2 ml Q6HT VERNA Administration Doxycycline Hyclate 100 mg 05/20/22 10:00 Doxycycline Hyclate 100 Mg Tablet PO 06/19/22 09:59 BID VERNA Famotidine 20 mg 05/20/22 10:00 Famotidine 20 Mg/1 Vial IV 06/19/22 09:59 Q12HT VERNA Sodium Chloride 1,000 mls @ 50 mls/hr 05/20/22 03:18 Sodium Chloride 0.9% 1000 Ml IV 06/19/22 03:17 .Q20H VERNA Lorazepam 1 mg 05/20/22 07:40 05/20/22 07:48 Lorazepam 2 Mg/1 Ml 2 Mg Vial IV 06/19/22 07:39 1 mg Q6H PRN PRN Administration ANXIETY Discontinued Medications Generic Name Dose Route Start Last Admin Trade Name Freq PRN Reason Stop Dose Admin Aspirin 325 mg 05/20/22 23:58 Aspirin 325 Mg Tablet.Ec PO 05/20/22 23:59 STAT ONE Aspirin 324 mg 05/20/22 00:04 05/20/22 00:06 Aspirin 81 Mg Tab.Chew PO 05/20/22 00:05 324 mg STAT ONE Administration Aspirin Confirm 05/20/22 00:03 Aspirin 81 Mg Tab.Chew Administered 05/20/22 00:04 Dose 324 mg .ROUTE .STK-MED ONE Methylprednisolone Sodium 0 mg 05/19/22 23:48 05/20/22 00:00 Succinate 125 mg/ Sterile IV 05/19/22 23:49 125 mg Water 2 ml STAT ONE Administration Doxycycline Hyclate Confirm 05/20/22 00:03 Doxycycline Hyclate 100 Mg/Vial Injection Administered 05/20/22 00:04 Dose 100 mg IV .STK-MED ONE Sodium Chloride 1,000 mls @ 999 mls/hr 05/19/22 23:48 05/20/22 02:54 Sodium Chloride 0.9% 1000 Ml IV 05/20/22 00:48 Infused .Q1H1M STA Infusion Azithromycin 500 mg in 250 mls @ 250 mls/hr 05/19/22 23:48 05/20/22 00:01 Zithromax 500 Mg/ 250 Ml Nacl Premix IV 05/20/22 00:47 Not Given STAT STA Doxycycline Hyclate 100 mg/ 100 mls @ 100 mls/hr 05/20/22 10:00 02/12/23 00:12 Dextrose IV 06/19/22 09:59 100 mls/hr Q12HT VERNA Administration Azithromycin Confirm 05/19/22 23:59 Zithromax 500 Mg/ 250 Ml Nacl Premix Administered 05/20/22 00:00 Dose 500 mg in 250 mls @ ud IV .STK-MED ONE Sodium Chloride Confirm 05/19/22 23:59 Sodium Chloride 0.9% 1000 Ml Administered 05/20/22 00:00 Dose 1,000 mls @ ud .ROUTE .STK-MED ONE Dextrose Confirm 05/20/22 00:03 D5w 100ml Mini Bag 100 Ml Administered 05/20/22 00:04 Dose 100 mls @ ud IV .STK-MED ONE Lorazepam 2 mg 05/20/22 01:29 05/20/22 02:24 Lorazepam 2 Mg/1 Ml 2 Mg Vial IV 05/20/22 01:30 2 mg STAT ONE Administration Lorazepam Confirm 05/20/22 02:20 Lorazepam 2 Mg/1 Ml 2 Mg Vial Administered 05/20/22 02:21 Dose 2 mg .ROUTE .STK-MED ONE Methylprednisolone Sodium Succinate Confirm 05/19/22 23:59 Methylprednis Sod Succ 125 Mg/2 Ml Vial Administered 05/20/22 00:00 Dose 125 mg .ROUTE .STK-MED ONE Methylprednisolone Sodium Succinate Confirm 05/20/22 06:10 Methylprednis Sod Succ 125 Mg/2 Ml Vial Administered 05/20/22 06:11 Dose 125 mg .ROUTE .STK-MED ONE Sterile Water Confirm 05/19/22 23:59 Water For Injection,Sterile 10 Ml Vial Administered 05/20/22 00:00 Dose 10 ml IJ .STK-MED ONE Sterile Water Confirm 05/20/22 06:10 Water For Injection,Sterile 10 Ml Vial Administered 05/20/22 06:11 Dose 10 ml IJ .STK-MED ONE Intake & Output (Last 24 hours) 05/17/22 05/18/22 05/19/22 05/20/22 11:59 11:59 11:59 11:59 Weight 74.525 kg Microbiology Results (Last 24 hours) 05/20/22 00:32 Blood Blood Culture Gram Stain - Pending 05/20/22 00:32 Blood Blood Culture - Pending 05/20/22 00:30 Blood Blood Culture Gram Stain - Pending 05/20/22 00:30 Blood Blood Culture - Pending Laboratory Results (Last 24 hours) 05/20/22 05/20/22 05/20/22 06:00 06:00 06:00 WBC 10.8 H RBC 4.25 Hgb 11.2 L Hct 36.2 L MCV 85.2 MCH 26.4 MCHC 30.9 L RDW 15.8 H Plt Count 308 MPV 10.0 Gran % Immature Gran % (Auto) Nucleat RBC Rel Count Eos # (Auto) Immature Gran # (Auto) Absolute Lymphs (auto) Absolute Monos (auto) Absolute Nucleated RBC Lymphocytes % Monocytes % Eosinophils % Basophils % Absolute Granulocytes Basophils # D-Dimer Puncture Site pCO2 pO2 Base Excess O2 Saturation ABG pH ABG HCO3 ABG O2 Sat (Measured) Clay Test A-a Gradient a/A Ratio Hemoglobin Carboxyhemoglobin Methemoglobin Temperature POC O2 Flow Rate Sodium 130 L Potassium 3.7 Chloride 91 L Carbon Dioxide 29 Anion Gap 13.4 BUN 19 Creatinine 1.30 H Estimated GFR 58.2 Glucose 200 H Lactic Acid Calcium 7.9 L Magnesium 2.2 Total Bilirubin AST ALT Alkaline Phosphatase Troponin I 0.176 H* NT-Pro-B Natriuret Pep 8740 H Serum Total Protein Albumin TSH 3rd Generation Influenza Type A Ag Influenza Type B Ag RSV (PCR) SARS-CoV-2 (PCR) 05/20/22 05/20/22 05/20/22 04:39 03:40 00:27 WBC RBC Hgb Hct MCV MCH MCHC RDW Plt Count MPV Gran % Immature Gran % (Auto) Nucleat RBC Rel Count Eos # (Auto) Immature Gran # (Auto) Absolute Lymphs (auto) Absolute Monos (auto) Absolute Nucleated RBC Lymphocytes % Monocytes % Eosinophils % Basophils % Absolute Granulocytes Basophils # D-Dimer Puncture Site RIGHT BRACHIAL pCO2 52 H pO2 64 L Base Excess 0.1 O2 Saturation 88.2 L ABG pH 7.32 L ABG HCO3 26.8 ABG O2 Sat (Measured) 92.7 L Clay Test NOT APPLICABLE A-a Gradient 185 a/A Ratio 0.26 Hemoglobin 11.1 Carboxyhemoglobin 4.7 Methemoglobin 0.3 L Temperature 37.0 POC O2 Flow Rate 44 Sodium Potassium 3.6 Chloride Carbon Dioxide Anion Gap BUN Creatinine Estimated GFR Glucose Lactic Acid 1.2 Calcium Magnesium Total Bilirubin AST ALT Alkaline Phosphatase Troponin I 0.170 H* NT-Pro-B Natriuret Pep Serum Total Protein Albumin TSH 3rd Generation Influenza Type A Ag Influenza Type B Ag RSV (PCR) SARS-CoV-2 (PCR) 05/19/22 05/19/22 05/19/22 00:32 00:32 00:32 WBC RBC Hgb Hct MCV MCH MCHC RDW Plt Count MPV Gran % Immature Gran % (Auto) Nucleat RBC Rel Count Eos # (Auto) Immature Gran # (Auto) Absolute Lymphs (auto) Absolute Monos (auto) Absolute Nucleated RBC Lymphocytes % Monocytes % Eosinophils % Basophils % Absolute Granulocytes Basophils # D-Dimer 0.27 Puncture Site pCO2 pO2 Base Excess O2 Saturation ABG pH ABG HCO3 ABG O2 Sat (Measured) Clay Test A-a Gradient a/A Ratio Hemoglobin Carboxyhemoglobin Methemoglobin Temperature POC O2 Flow Rate Sodium Potassium Chloride Carbon Dioxide Anion Gap BUN Creatinine Estimated GFR Glucose Lactic Acid Calcium Magnesium Total Bilirubin AST ALT Alkaline Phosphatase Troponin I NT-Pro-B Natriuret Pep Serum Total Protein Albumin TSH 3rd Generation 3.740 Influenza Type A Ag NEGATIVE Influenza Type B Ag NEGATIVE RSV (PCR) NEGATIVE SARS-CoV-2 (PCR) NEGATIVE 05/19/22 05/19/22 00:32 00:32 WBC 8.5 RBC 3.95 L Hgb 10.5 L Hct 33.0 L MCV 83.5 MCH 26.6 MCHC 31.8 L RDW 15.8 H Plt Count 236 MPV 10.0 Gran % 60.0 Immature Gran % (Auto) 0.4 Nucleat RBC Rel Count 0.0 Eos # (Auto) 0.05 Immature Gran # (Auto) 0.03 Absolute Lymphs (auto) 2.13 Absolute Monos (auto) 1.16 Absolute Nucleated RBC 0.00 Lymphocytes % 25.1 Monocytes % 13.7 H Eosinophils % 0.6 Basophils % 0.2 Absolute Granulocytes 5.09 Basophils # 0.02 D-Dimer Puncture Site pCO2 pO2 Base Excess O2 Saturation ABG pH ABG HCO3 ABG O2 Sat (Measured) Clay Test A-a Gradient a/A Ratio Hemoglobin Carboxyhemoglobin Methemoglobin Temperature POC O2 Flow Rate Sodium 130 L Potassium 3.5 Chloride 90 L Carbon Dioxide 32 H Anion Gap 10.9 BUN 17 Creatinine 1.01 Estimated GFR > 60.0 Glucose 105 Lactic Acid Calcium 8.1 L Magnesium 2.0 Total Bilirubin 0.60 AST 79 H ALT 80 H Alkaline Phosphatase 121 Troponin I 0.194 H* NT-Pro-B Natriuret Pep Serum Total Protein 7.9 Albumin 4.3 TSH 3rd Generation Influenza Type A Ag Influenza Type B Ag RSV (PCR) SARS-CoV-2 (PCR) Orders (Last 24 hours) Category Date Time Status Design Verification Engineer STAT Care 05/19/22 23:49 Completed Code Status Order ROUTINE Care 05/20/22 03:18 Active EKG-ER Only STAT Care 05/19/22 23:48 Completed IV Care Q6H Care 05/20/22 03:18 Active IV Insertion STAT Care 05/19/22 23:[address] in Observation ROUTINE Care 05/20/22 03:18 Active Pulse Oximetry (ED) STAT Care 05/19/22 23:48 Completed Carlos Heck, Apply ROUTINE Care 05/20/22 03:18 Active Weight,Daily 0600 Care 05/20/22 03:18 Active Internist/Discharge Plan ROUTINE Cons 05/22/22 08:00 Active NPO Diet 05/20/22 03:19 Active CHEST 1 VIEW (PORTABLE) Stat Exams 05/19/22 23:48 Taken ARTERIAL BLOOD GASES Urgent Lab 05/20/22 03:40 Completed BLOOD CULTURE Stat Lab 05/20/22 00:32 Received BMP AM.LAB Lab 05/20/22 06:00 Completed CBC AM.LAB Lab 05/20/22 06:00 Completed Lactic Acid Stat Lab 05/19/22 23:48 Completed MAGNESIUM AM.LAB Lab 05/20/22 06:00 Completed NT PRO BNP Routine Lab 05/20/22 06:00 Completed TROPONIN Q4H Lab 05/20/22 04:39 Completed TROPONIN Q4H Lab 05/20/22 06:00 Completed Albuterol/Ipratropium 3ml Neb* [DUONEB 0.5-3 MG/3 ml Med 05/20/22 03:18 Active Neb] 3 ml IH Q4HRT Aspirin 81 gm Chew [Baby Aspirin 81 mg Chew] Med 05/20/22 00:03 Discontinued 324 mg .ROUTE .STK-MED ONE Aspirin 81 gm Chew [Baby Aspirin 81 mg Chew] Med 05/20/22 00:04 Discontinued 324 mg PO STAT ONE Aspirin EC 325 mg [Ecotrin 325 MG] Med 05/20/22 23:58 Discontinued 325 mg PO STAT ONE Azithromycin 500 mg/250 ml [Zithromax 500 MG/ 250 ML Med 05/19/22 23:48 Discontinued NaCl Premix] 500 mg in 250 ml IV STAT Azithromycin 500 mg/250 ml [Zithromax 500 MG/ 250 ML Med 05/19/22 23:59 Discontinued NaCl Premix] 500 mg in 250 ml IV UD D5w 100 ml [D5w 100ML Mini Bag 100 ML] 100 ml Med 05/20/22 00:03 Discontinued IV UD Doxycycline Hyclate 100 mg [Vibramycin 100 MG] Med 05/20/22 10:00 Active 100 mg PO BID Doxycycline Hyclate 100 mg [Vibramycin 100 mg] Med 05/20/22 00:03 Discontinued 100 mg IV .STK-MED ONE Doxycycline Hyclate 100 mg [Vibramycin 100 mg] Med 05/20/22 10:00 Discontinued 100 mg D5w 100 ml Mini-Bag Plus [Dextrose 5%/Water IV Soln. 100ML PLUS BAG] 100 ml IV Q12HT Famotidine 20 mg Vial [Pepcid 20 MG VIAL] Med 05/20/22 10:00 Active 20 mg IV Q12HT Lorazepam 2 mg/1 ml [Ativan 2 MG/1 ML VIAL] Med 05/20/22 07:40 Active 1 mg IV Q6H PRN PRN Lorazepam 2 mg/1 ml [Ativan 2 MG/1 ML VIAL] Med 05/20/22 02:20 Discontinued 2 mg .ROUTE .STK-MED ONE Lorazepam 2 mg/1 ml [Ativan 2 MG/1 ML VIAL] Med 05/20/22 01:29 Discontinued 2 mg IV STAT ONE Methylprednis Sod Succ 125 mg* [solu-MEDROL] Med 05/19/22 23:59 Discontinued 125 mg .ROUTE .STK-MED ONE Methylprednis Sod Succ 125 mg* [solu-MEDROL] Med 05/20/22 06:10 Discontinued 125 mg .ROUTE .STK-MED ONE Methylprednis Sod Succ 125 mg* [solu-MEDROL] 125 mg Med 05/19/22 23:48 Discontinued Water For Injection,Sterile [Sterile H2O 10 ml] 2 ml IV STAT Methylprednis Sod Succ 125 mg* [solu-MEDROL] 60 mg Med 05/20/22 06:00 Active Water For Injection,Sterile [Sterile H2O 10 ml] 2 ml IV Q6HT NaCl 0.9% 1000 ml [Sodium Chloride 0.9% 1000 ML] 1,000 Med 05/19/22 23:59 Discontinued ml .ROUTE UD NaCl 0.9% 1000 ml [Sodium Chloride 0.9% 1000 ML] 1,000 Med 05/20/22 03:18 Active ml IV 50 mls/hr NaCl 0.9% 1000 ml [Sodium Chloride 0.9% 1000 ML] 1,000 Med 05/19/22 23:48 Discontinued ml IV 999 mls/hr Water For Injection,Sterile [Sterile H2O 10 ml] Med 05/19/22 23:59 Discontinued 10 ml IJ .STK-MED ONE Water For Injection,Sterile [Sterile H2O 10 ml] Med 05/20/22 06:10 Discontinued 10 ml IJ .STK-MED ONE BiPap/CPAP ROUTINE RT 05/20/22 04:18 Active Oxygen NASAL CANNULA 2 lpm RT 05/20/22 03:25 Active Pulse Oximetry CONTINUOUS RT 05/20/22 03:18 Active RT Screen per Nursing Assess ONCE RT 05/20/22 08:00 Completed Respiratory Therapy Assessment DAILY RT 05/20/22 03:35 Active Respiratory Therapy Consult ROUTINE RT 05/20/22 03:18 Completed Transfer Order Routine Transfer 05/20/22 Completed Patient Care Notes (Last 24 hours) 05/20/22 04:19 Respiratory Note by Edie Sharma 05/20/22 03:38 AN ABG WAS ORDERED PER R.T. PROTOCOL AT THIS TIME DUE TO THE PT HAVING INCREASED WOB, DECREASED SPO2, AND INCREASED LETHARGY. 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
--- NOTE | 2022-05-20 07:58 | XRAY ---
Indication: Short of breath. Comparison: April 27, 2022 Portable chest improved with interval clearing right lung. Previous left effusion also improved with tiny residual. Remaining heart and lungs unremarkable. No new cardiopulmonary abnormalities.
[2022-05-20] MEDS ORDERED: Vibramycin 100 MG PO SCH (10:00)
[2022-05-20] MEDS ORDERED: VIBRAMYCIN 100 MG*** 100 MG in Dextrose 5%/Water IV Soln. 100ML PLUS BAG 100 ML IV SCH (10:00)
[2022-05-20] MEDS: Lasix 40 MG/4 ML IV SCH ×2 (11:22→21:52)
[2022-05-20] MEDS: Pepcid 20 MG VIAL IV SCH ×2 (11:23→21:52)
[2022-05-20] MEDS: Sodium Chloride 0.9% 1000 ML 1,000 ML IV SCH (11:26)
[2022-05-20] MEDS ORDERED: Docusate Sodium 100 MG PO PRN (12:22)
[2022-05-20] MEDS ORDERED: VENTOLIN COMMON CANISTER IH PRN (12:22)
[2022-05-20] MEDS ORDERED: PROVENTIL 2.5 MG/3 ML NEB IH PRN (12:22)
[2022-05-20] MEDS: Cordarone 200 MG PO SCH (13:56)
[2022-05-20] MEDS: Lopressor 50 MG PO SCH (13:56)
[2022-05-20] MEDS: ELIQUIS 2.5 MG TABLET PO SCH ×2 (13:56→21:51)
[2022-05-20] MEDS: ATARAX 25 MG PO SCH ×2 (13:57→21:51)
[2022-05-20] MEDS ORDERED: DUONEB 0.5-3 MG/3 ml Neb IH SCH (15:00)
[2022-05-20] MEDS: Cardizem IV 50 MG/10 ML IV SCH (17:04)
[2022-05-20] MEDS ORDERED: NON-FORMULARY ITEM (Apixaban*** [Eliquis 5 Mg Tablet***] 5 MG Tablet) PO SCH (22:00)
[2022-05-20] MEDS ORDERED: Ecotrin 325 MG PO ONE (23:58)
[2022-05-21] MEDS: solu-MEDROL 60 MG, Sterile H2O 10 ml 2 ML IV SCH ×10 (01:43→23:35)
[2022-05-21] MEDS: DUONEB 0.5-3 MG/3 ml Neb IH SCH ×7 (02:15→23:00)
[2022-05-21 05:21] LABS: Hematocrit 33.2 % (42-50); Hemoglobin 10.7 g/dL (12.5-18.0); Mean Cell Volume 81.6 fL (78-100); Mean Corpuscular Hemoglobin 26.3 pg (26-32); Mean Corpuscular Hgb Concent. 32.2 g/dL (32-36); Mean Platelet Volume 9.5 fL (7.5-11.0); Platelet Count 223 x10^3/uL (150-450); Red Blood Count 4.07 x10^6/uL (4.1-5.6); Red Cell Distribution Width 15.8 % (11.5-14.0); White Blood Count 6.9 x10^3/uL (4.0-10.5)
[2022-05-21 05:47] LABS: ALBUMIN 3.7 g/dL (3.5-5.0); ALKALINE PHOSPHATASE 124 U/L (38-126); BLOOD UREA NITROGEN 23 mg/dL (9-20); CHLORIDE 95 mmol/L (98-107); Calcium 8.1 mg/dL (8.4-10.2); Creatinine 1 0.85 mg/dL (0.66-1.25); EST GLOMERULAR FILTRATION RATE > 60.0 ML/MIN; Glucose 181 mg/dL (74-106); SGOT/AST 160 U/L (17-59); SGPT/ALT 145 U/L (0-50); SODIUM 136 mmol/L (137-145)
[2022-05-21 05:54] LABS: Carbon Dioxide 33 mmol/L (22-30)
[2022-05-21 05:56] LABS: ANION GAP 11 MEQ/L (5-15)
[2022-05-21] MEDS ORDERED: Cardizem IV 50 MG/10 ML IV ONE (06:26)
[2022-05-21] MEDS: Cardizem IV 50 MG/10 ML IV SCH ×2 (06:31→17:23)
[2022-05-21] MEDS: POTASSIUM CHLORIDE 20 mEq IN WATER 100ML 100 ML IV SCH ×4 (06:32→23:35)
[2022-05-21] MEDS: Ativan 2 MG/1 ML VIAL IV PRN ×2 (07:36→13:01)
[2022-05-21] MEDS: Pepcid 20 MG VIAL IV SCH ×2 (09:18→22:55)
[2022-05-21] MEDS: ATARAX 25 MG PO SCH ×3 (09:18→22:55)
[2022-05-21] MEDS: Lasix 40 MG/4 ML IV SCH ×2 (09:18→18:22)
[2022-05-21] MEDS ORDERED: Zyprexa Zydis 5 MG PO ONE (10:00)
[2022-05-21] MEDS: Lopressor 50 MG PO SCH (10:16)
[2022-05-21] MEDS: Cordarone 200 MG PO SCH (10:16)
[2022-05-21] MEDS: ELIQUIS 2.5 MG TABLET PO SCH ×2 (10:16→22:55)
[2022-05-21 12:05] LABS: A-aADO2 105; ABG HEMOGLOBIN 11.6; ABG POTASSIUM 3.1 (3.5-5.1); ABG SITE rt brach; ARTERIAL BLD GAS O2 SATURATION 93.7 % (95-100); ARTERIAL BLOOD GAS BASE EXCESS 9.9 (-2.0-2.0); ARTERIAL BLOOD GAS FIO2 32 %; ARTERIAL BLOOD GAS PCO2 48 mmHg (35-45); ARTERIAL BLOOD GAS PO2 63 mmHg (75-100); ARTERIAL BLOOD GAS pH 7.47 (7.35-7.45); CARBOXYHEMOGLOBIN 1.6 % THgb (0.0-6.9); HCO3- 34.9 (22-28); HGB O2 SAT 91.6 g/dF (94-100); Methhemoglobin 0.7 % (1.4-1.5); paO2 pAO1 0.38
[2022-05-21] MEDS ORDERED: Haldol 5 MG IV PRN (12:17)
[2022-05-21] MEDS ORDERED: Seroquel 25 MG PO ONE (14:18)
[2022-05-21] MEDS ORDERED: solu-MEDROL ONE (17:14)
--- NOTE | 2022-05-21 17:35 | PCM.NOTE ---
Date and Time: 05/21/221730 Subjective Assessment: very confused, - Review of Systems Constitutional: Fatigue, Lethargy, Weakness Eyes: No Symptoms Ears, Nose, & Throat: No Symptoms Respiratory: Cough Cardiac: No Symptoms Abdominal/Gastrointestinal: No Symptoms Genitourinary Symptoms: No Symptoms Musculoskeletal: No Symptoms Skin: No Symptoms Neurological: Irritability, Lethargy Psychological: Alcohol Abuse Endocrine: No Symptoms Hematologic/Lymphatic: No Symptoms Immunological/Allergic: No Symptoms Objective Exam General Appearance: no apparent distress, alert Neurologic Exam: alert, oriented x 3, cooperative, normal mood/affect, nml cerebellar function, sensation nml, No motor deficits Skin Exam: normal color, warm, dry Eye Exam: PERRL, EOMI, eyes nml inspection Ears, Nose, Throat Exam: normal ENT inspection, pharynx normal, moist mucous m embranes Neck Exam: normal inspection, non-tender, supple, full range of motion Respiratory Exam: diminished breath sounds, crackles/rales, rhonchi, wheezing, No respiratory distress Cardiovascular Exam: irregular, capillary refill 2-3 sec, edema Gastrointestinal/Abdomen Exam: soft, No tenderness, No mass Extremity Exam: normal inspection, normal range of motion Back Exam: normal inspection, normal range of motion, No CVA tenderness, No vertebral tenderness Male Genitalia Exam: deferred Rectal Exam: deferred OBJECTIVE DATA Vital Signs: Vital Signs - 24 hr Temp Pulse Resp BP BP Pulse Ox 05/21/22 14:06 126 H 16 95 05/21/22 13:01 126 H 16 114/64 05/21/22 11:52 97.5 F 126 H 16 114/64 91 L 05/21/22 11:35 102 H 16 91 L 05/21/22 07:30 97.4 F 122 H 16 126/75 98 05/21/22 06:56 123 H 20 94 L 05/21/22 04:00 97.0 F 124 H 21 159/71 96 05/21/22 02:15 116 H 14 100 05/20/22 23:39 97.6 F 114 H 16 120/73 100 05/20/22 23:36 114 H 17 100 05/20/22 19:19 98.9 F 112 H 16 107/64 100 05/20/22 19:15 111 H 16 100 Pain Assessment - Last Documented Pain Intensity 0 Intake and Output: Intake & Output 05/19/22 05/20/22 05/21/22 05/22/22 11:59 11:59 11:59 11:59 Intake Total 0 0 Output Total 3850 800 Balance 0 -3850 -800 Weight 74.525 kg 67.3 kg Lab Results: Lab Results-Last 24 Hours 05/20/22 05/20/22 05/21/22 Range/Units 20:12 20:54 00:29 WBC (4.0-10.5) x10^3/uL RBC (4.1-5.6) x10^6/uL Hgb (12.5-18.0) g/dL Hct (42-50) % MCV (78-100) fL MCH (26-32) pg MCHC (32-36) g/dL RDW (11.5-14.0) % Plt Count (150-450) x10^3/uL MPV (7.5-11.0) fL Puncture Site pCO2 (35-45) mmHg pO2 (75-100) mmHg Base Excess (-2.0-2.0) O2 Saturation (94-100) g/dF ABG pH (7.35-7.45) ABG HCO3 (22-28) ABG O2 Sat (Measured) (95-100) % Clay Test A-a Gradient a/A Ratio Hemoglobin Carboxyhemoglobin (0.0-6.9) % THgb Methemoglobin (1.4-1.5) % Temperature C POC O2 Flow Rate % Sodium (137-145) mmol/L Potassium (3.5-5.1) mmol/L Chloride (98-107) mmol/L Carbon Dioxide (22-30) mmol/L Anion Gap (5-15) MEQ/L BUN (9-20) mg/dL Creatinine (0.66-1.25) mg/dL Estimated GFR ML/MIN Glucose (74-106) mg/dL POC Glucometer 169 H (74 to 106) mg/dL Calcium (8.4-10.2) mg/dL Magnesium (1.6-2.3) mg/dL Total Bilirubin (0.2-1.3) mg/dL AST (17-59) U/L ALT (0-50) U/L Alkaline Phosphatase (38-126) U/L Troponin I 0.205 H* 0.189 H* (0.000-0.034) ng/mL Serum Total Protein (6.3-8.2) g/dL Albumin (3.5-5.0) g/dL 05/21/22 05/21/22 05/21/22 Range/Units 04:50 04:50 05:57 WBC 6.9 (4.0-10.5) x10^3/uL RBC 4.07 L (4.1-5.6) x10^6/uL Hgb 10.7 L (12.5-18.0) g/dL Hct 33.2 L (42-50) % MCV 81.6 (78-100) fL MCH 26.3 (26-32) pg MCHC 32.2 (32-36) g/dL RDW 15.8 H (11.5-14.0) % Plt Count 223 (150-450) x10^3/uL MPV 9.5 (7.5-11.0) fL Puncture Site pCO2 (35-45) mmHg pO2 (75-100) mmHg Base Excess (-2.0-2.0) O2 Saturation (94-100) g/dF ABG pH (7.35-7.45) ABG HCO3 (22-28) ABG O2 Sat (Measured) (95-100) % Clay Test A-a Gradient a/A Ratio Hemoglobin Carboxyhemoglobin (0.0-6.9) % THgb Methemoglobin (1.4-1.5) % Temperature C POC O2 Flow Rate % Sodium 136 L (137-145) mmol/L Potassium 3.0 L* (3.5-5.1) mmol/L Chloride 95 L (98-107) mmol/L Carbon Dioxide 33 H (22-30) mmol/L Anion Gap 11 (5-15) MEQ/L BUN 23 H (9-20) mg/dL Creatinine 0.85 (0.66-1.25) mg/dL Estimated GFR > 60.0 ML/MIN Glucose 181 H (74-106) mg/dL POC Glucometer (74 to 106) mg/dL Calcium 8.1 L (8.4-10.2) mg/dL Magnesium 2.1 (1.6-2.3) mg/dL Total Bilirubin 0.60 (0.2-1.3) mg/dL AST 160 H (17-59) U/L ALT 145 H (0-50) U/L Alkaline Phosphatase 124 (38-126) U/L Troponin I (0.000-0.034) ng/mL Serum Total Protein 7.0 (6.3-8.2) g/dL Albumin 3.7 (3.5-5.0) g/dL 05/21/22 05/21/22 05/21/22 Range/Units 07:19 08:57 11:44 WBC (4.0-10.5) x10^3/uL RBC (4.1-5.6) x10^6/uL Hgb (12.5-18.0) g/dL Hct (42-50) % MCV (78-100) fL MCH (26-32) pg MCHC (32-36) g/dL RDW (11.5-14.0) % Plt Count (150-450) x10^3/uL MPV (7.5-11.0) fL Puncture Site pCO2 (35-45) mmHg pO2 (75-100) mmHg Base Excess (-2.0-2.0) O2 Saturation (94-100) g/dF ABG pH (7.35-7.45) ABG HCO3 (22-28) ABG O2 Sat (Measured) (95-100) % Clay Test A-a Gradient a/A Ratio Hemoglobin Carboxyhemoglobin (0.0-6.9) % THgb Methemoglobin (1.4-1.5) % Temperature C POC O2 Flow Rate % Sodium (137-145) mmol/L Potassium 3.4 L (3.5-5.1) mmol/L Chloride (98-107) mmol/L Carbon Dioxide (22-30) mmol/L Anion Gap (5-15) MEQ/L BUN (9-20) mg/dL Creatinine (0.66-1.25) mg/dL Estimated GFR ML/MIN Glucose (74-106) mg/dL POC Glucometer 164 H 151 H (74 to 106) mg/dL Calcium (8.4-10.2) mg/dL Magnesium (1.6-2.3) mg/dL Total Bilirubin (0.2-1.3) mg/dL AST (17-59) U/L ALT (0-50) U/L Alkaline Phosphatase (38-126) U/L Troponin I (0.000-0.034) ng/mL Serum Total Protein (6.3-8.2) g/dL Albumin (3.5-5.0) g/dL 05/21/22 05/21/22 05/21/22 Range/Units 12:03 13:16 16:27 WBC (4.0-10.5) x10^3/uL RBC (4.1-5.6) x10^6/uL Hgb (12.5-18.0) g/dL Hct (42-50) % MCV (78-100) fL MCH (26-32) pg MCHC (32-36) g/dL RDW (11.5-14.0) % Plt Count (150-450) x10^3/uL MPV (7.5-11.0) fL Puncture Site rt brach pCO2 48 H (35-45) mmHg pO2 63 L (75-100) mmHg Base Excess 9.9 H (-2.0-2.0) O2 Saturation 91.6 L (94-100) g/dF ABG pH 7.47 H (7.35-7.45) ABG HCO3 34.9 H* (22-28) ABG O2 Sat (Measured) 93.7 L (95-100) % Clay Test n/a A-a Gradient 105 a/A Ratio 0.38 Hemoglobin 11.6 Carboxyhemoglobin 1.6 (0.0-6.9) % THgb Methemoglobin 0.7 L (1.4-1.5) % Temperature 37.0 C POC O2 Flow Rate 32 % Sodium (137-145) mmol/L Potassium 3.1 L 2.9 L* (3.5-5.1) mmol/L Chloride (98-107) mmol/L Carbon Dioxide (22-30) mmol/L Anion Gap (5-15) MEQ/L BUN (9-20) mg/dL Creatinine (0.66-1.25) mg/dL Estimated GFR ML/MIN Glucose (74-106) mg/dL POC Glucometer 174 H (74 to 106) mg/dL Calcium (8.4-10.2) mg/dL Magnesium (1.6-2.3) mg/dL Total Bilirubin (0.2-1.3) mg/dL AST (17-59) U/L ALT (0-50) U/L Alkaline Phosphatase (38-126) U/L Troponin I (0.000-0.034) ng/mL Serum Total Protein (6.3-8.2) g/dL Albumin (3.5-5.0) g/dL Radiology Exams: Radiology Procedures Category Date Time Status CHEST 1 VIEW (PORTABLE) Stat Exams 05/19/22 23:48 Completed Multi-Disciplinary Progress Notes: Multi-Disciplinary Progress Notes 05/21/22 14:01 Case Management Note by Hailey Banda PATIENT'S SON IS GREGORIO PEDRAZA (SP?) [phone] Initialized on 05/21/22 14:01 - END OF NOTE 05/21/22 12:35 Case Management Note by Hailey Banda CALLED AND S/W NIECE THAT PATENT LIVES WITH ABOUT NH FOR REHAB VS HOSPICE. SHE REPORTS THAT SHE KNOWS PATIENT WILL NOT WANT TO BE AT A FACILITY. HE WILL WANT TO COME HOME. SHE REPORTS HE IS TIRED OF COMING TO THE HOSPITAL AND WAS MAD THAT SHE MADE HIM COME THIS LAST TIME. SHE THINKS HOME WITH HOSPICE WOULD BE THE BEST OPTION FOR PATIENT. SHE WILL CALL AND DISCUSS THIS WITH PATIENT'S SON GREGORIO Initialized on 05/21/22 12:35 - END OF NOTE 05/21/22 10:40 Case Management Note by Hailey Banda PATIENT CONFUSED. THIS [employer] WITH PATIENT. HE LIVES WITH HIS NIECE WHO HELPS CARE FOR HIM. HE HAS HHC. WILL DEFER CM AT THIS TIME D/T EXTREME CONFUSION AND AGITATION. MAY NEED NH PLACEMENT BUT PATIENT HAS REFUSED IN THE PAST Initialized on 05/21/22 10:40 - END OF NOTE 05/21/22 10:38 Case Management Note by Hailey Banda PATIENT HAS HHC SOLUTIONS- THEY WERE NOTIFIED PATIENT HERE OBS. THEY WILL NEED NOTIFIED AT TIME OF DC AT [phone]. THEY WILL NEED FAXED THE DC INSTRUCTIONS, DC MD LIST AND DC SUMMARY ( IF AVAILABLE) TO [phone] Initialized on 05/21/22 10:38 - END OF NOTE Assessment/Plan (1) Acute on chronic diastolic congestive heart failure, NYHA class 4 Current Visit: Yes Status: Acute Assessment & Plan: Chief Complaint Diagnosis EXAC COPD, AMS Allergies Allergy/AdvReac Type Severity Reaction Status Date / Time Penicillins Allergy Severe Anaphylactic Verified 05/19/22 23:52 Reaction Vital Signs (Last 24 hours) Temp Pulse Resp BP BP Pulse Ox 05/21/22 14:06 126 H 16 95 05/21/22 13:01 126 H 16 114/64 05/21/22 11:52 97.5 F 126 H 16 114/64 91 L 05/21/22 11:35 102 H 16 91 L 05/21/22 07:30 97.4 F 122 H 16 126/75 98 05/21/22 06:56 123 H 20 94 L 05/21/22 04:00 97.0 F 124 H 21 159/71 96 05/21/22 02:15 116 H 14 100 05/20/22 23:39 97.6 F 114 H 16 120/73 100 05/20/22 23:36 114 H 17 100 05/20/22 19:19 98.9 F 112 H 16 107/64 100 05/20/22 19:15 111 H 16 100 Home Medications Medication Instructions Recorded Confirmed Last Taken Type Amiodarone HCl 200 mg PO DAILY 05/20/22 05/20/22 Unknown History Current Medications Generic Name Dose Route Start Last Admin Trade Name Freq PRN Reason Stop Dose Admin Albuterol Sulfate 1 puff 05/20/22 12:22 Albuterol Common Canister Inhaler 06/19/22 12:21 Q4HPRN PRN SHORTNESS OF BREATH/WHEEZING Albuterol Sulfate 2.5 mg 05/20/22 12:22 05/21/22 13:57 Albuterol Sulfate 2.5 Mg/3 Ml [facility] 06/19/22 12:21 2.5 mg Q4H PRN PRN Administration SHORTNESS OF BREATH/WHEEZING Albuterol/Ipratropium 3 ml 05/20/22 03:18 05/21/22 15:35 Ipratropium/Albuterol Sulfate 3 Ml Ampul.[facility] 06/19/22 03:17 Not Given Q4HRT VERNA Amiodarone HCl 200 mg 05/20/22 14:00 05/21/22 10:16 Amiodarone Hcl 200 Mg Tab PO 06/19/22 13:59 Not Given DAILY VERNA Apixaban 5 mg 05/20/22 14:00 05/21/22 10:16 Apixaban 2.5 Mg Tablet PO 06/19/22 13:59 Not Given BID VERNA Methylprednisolone Sodium 0 mg 05/20/22 06:00 05/21/22 17:24 Succinate 60 mg/ Sterile Water IV 06/19/22 05:59 60 mg 2 ml Q6HT VERNA Administration Diltiazem HCl 5 mg 05/20/22 17:00 05/21/22 17:23 Diltiazem Hcl Iv 5 Mg/Ml Vial IV 06/19/22 16:59 5 mg Q12H VERNA Administration Docusate Sodium 100 mg 05/20/22 12:22 Docusate Sodium 100 Mg Capsule PO 06/19/22 12:21 DAILY PRN PRN CONSTIPATION Famotidine 20 mg 05/20/22 10:00 05/21/22 09:18 Famotidine 20 Mg/1 Vial IV 06/19/22 09:59 20 mg Q12HT VERNA Administration Furosemide 40 mg 05/20/22 10:00 05/21/22 09:18 Furosemide 40 Mg/4 Ml Vial IV 06/19/22 09:59 40 mg Q12H EVRNA Administration Haloperidol Lactate 5 mg 05/21/22 12:17 Haloperidol Lactate 5 Mg/Ml Vial IV 06/20/22 12:16 Q8H PRN PRN AGITATION Hydroxyzine HCl 25 mg 05/20/22 15:00 05/21/22 14:45 Hydroxyzine Hcl 25 Mg Tablet PO 06/19/22 14:59 25 mg TID VERNA Administration Sodium Chloride 1,000 mls @ 0 mls/hr 05/20/22 03:18 05/20/22 11:26 Sodium Chloride 0.9% 1000 Ml IV 06/19/22 03:17 20 mls/hr .Q20H VERNA Administration KVO Insulin Human Lispro 0 unit 05/20/22 09:51 Insulin Lispro 1 Unit SQ 06/19/22 09:50 UD PRN HYPERGLYCEMIA Lorazepam 1 mg 05/20/22 07:40 05/21/22 13:01 Lorazepam 2 Mg/1 Ml 2 Mg Vial IV 06/19/22 07:39 1 mg Q6H PRN PRN Administration ANXIETY Metoprolol Tartrate 50 mg 05/20/22 14:00 05/21/22 10:16 Metoprolol Tartrate 50 Mg Tablet PO 06/19/22 13:59 Not Given DAILY VERNA Olanzapine 5 mg 05/21/22 22:00 Olanzapine 5 Mg/Tab Orally Disintegrating PO 06/20/22 21:59 QHS VERNA Quetiapine Fumarate 50 mg 05/21/22 22:00 Quetiapine Fumarate 25 Mg Tablet PO 06/20/22 21:59 BID VERNA Discontinued Medications Generic Name Dose Route Start Last Admin Trade Name Freq PRN Reason Stop Dose Admin Albuterol/Ipratropium 3 ml 05/20/22 15:00 Ipratropium/Albuterol Sulfate 3 Ml Ampul.Neb [facility] 06/19/22 14:59 QIDRT VERNA Aspirin 325 mg 05/20/22 23:58 Aspirin 325 Mg Tablet.Ec PO 05/20/22 23:59 STAT ONE Aspirin 324 mg 05/20/22 00:04 05/20/22 00:06 Aspirin 81 Mg Tab.Chew PO 05/20/22 00:05 324 mg STAT ONE Administration Aspirin Confirm 05/20/22 00:03 Aspirin 81 Mg Tab.Chew Administered 05/20/22 00:04 Dose 324 mg .ROUTE .STK-MED ONE Methylprednisolone Sodium 0 mg 05/19/22 23:48 05/20/22 00:00 Succinate 125 mg/ Sterile IV 05/19/22 23:49 125 mg Water 2 ml STAT ONE Administration Diltiazem HCl Confirm 05/21/22 06:26 Diltiazem Hcl Iv 5 Mg/Ml Vial Administered 05/21/22 06:27 Dose 50 mg IV .STK-MED ONE Doxycycline Hyclate Confirm 05/20/22 00:03 Doxycycline Hyclate 100 Mg/Vial Injection Administered 05/20/22 00:04 Dose 100 mg IV .STK-MED ONE Doxycycline Hyclate 100 mg 05/20/22 10:00 Doxycycline Hyclate 100 Mg Tablet PO 06/19/22 09:59 BID [facility] Sodium Chloride 1,000 mls @ 999 mls/hr 05/19/22 23:48 05/20/22 02:54 Sodium Chloride 0.9% 1000 Ml IV 05/20/22 00:48 Infused .Q1H1M STA Infusion Azithromycin 500 mg in 250 mls @ 250 mls/hr 05/19/22 23:48 05/20/22 00:01 Zithromax 500 Mg/ 250 Ml Nacl Premix IV 05/20/22 00:47 Not Given STAT STA Doxycycline Hyclate 100 mg/ 100 mls @ 100 mls/hr 05/20/22 10:00 05/20/22 00:12 Dextrose IV 06/19/22 09:59 100 mls/hr Q12HT VERNA Administration Azithromycin Confirm 05/19/22 23:59 Zithromax 500 Mg/ 250 Ml Nacl Premix Administered 05/20/22 00:00 Dose 500 mg in 250 mls @ ud IV .STK-MED ONE Sodium Chloride Confirm 05/19/22 23:59 Sodium Chloride 0.9% 1000 Ml Administered 05/20/22 00:00 Dose 1,000 mls @ ud .ROUTE .STK-MED ONE Dextrose Confirm 05/20/22 00:03 D5w 100ml Mini Bag 100 Ml Administered 05/20/22 00:04 Dose 100 mls @ ud IV .STK-MED ONE Potassium Chloride 100 mls @ 50 mls/hr 05/21/22 07:00 05/21/22 16:41 Potassium Chloride 20 Meq In Water 100ml IV 05/21/22 14:59 50 mls/hr Q2H VERNA Administration Lorazepam 2 mg 05/20/22 01:29 05/20/22 02:24 Lorazepam 2 Mg/1 Ml 2 Mg Vial IV 05/20/22 01:30 2 mg STAT ONE Administration Lorazepam Confirm 05/20/22 02:20 Lorazepam 2 Mg/1 Ml 2 Mg Vial Administered 05/20/22 02:21 Dose 2 mg .ROUTE .STK-MED ONE Methylprednisolone Sodium Succinate Confirm 05/19/22 23:59 Methylprednis Sod Succ 125 Mg/2 Ml Vial Administered 05/20/22 00:00 Dose 125 mg .ROUTE .STK-MED ONE Methylprednisolone Sodium Succinate Confirm 05/20/22 06:10 Methylprednis Sod Succ 125 Mg/2 Ml Vial Administered 05/20/22 06:11 Dose 125 mg .ROUTE .STK-MED ONE Methylprednisolone Sodium Succinate Confirm 05/21/22 17:14 Methylprednis Sod Succ 125 Mg/2 Ml Vial Administered 05/21/22 17:15 Dose 125 mg .ROUTE .STK-MED ONE Olanzapine 10 mg 05/21/22 10:00 05/21/22 09:38 Olanzapine 5 Mg/Tab Orally Disintegrating PO 05/21/22 10:01 10 mg STAT ONE Administration Quetiapine Fumarate 50 mg 05/21/22 14:18 05/21/22 14:45 Quetiapine Fumarate 25 Mg Tablet PO 05/21/22 14:19 50 mg NOW ONE Administration Sterile Water Confirm 05/19/22 23:59 Water For Injection,Sterile 10 Ml Vial Administered 05/20/22 00:00 Dose 10 ml IJ .STK-MED ONE Sterile Water Confirm 05/20/22 06:10 Water For Injection,Sterile 10 Ml Vial Administered 05/20/22 06:11 Dose 10 ml IJ .STK-MED ONE Intake & Output (Last 24 hours) 05/19/22 05/20/22 05/21/22 05/22/22 11:59 11:59 11:59 11:59 Intake Total 0 0 Output Total 3850 800 Balance 0 -3850 -800 Weight 74.525 kg 67.3 kg Microbiology Results (Last 24 hours) 05/20/22 00:32 Blood Blood Culture Gram Stain - Pending 05/20/22 00:32 Blood Blood Culture - Preliminary NO GROWTH TO DATE 05/20/22 00:30 Blood Blood Culture Gram Stain - Pending 05/20/22 00:30 Blood Blood Culture - Preliminary NO GROWTH TO DATE Laboratory Results (Last 24 hours) 05/21/22 05/21/22 05/21/22 16:27 13:16 12:03 WBC RBC Hgb Hct MCV MCH MCHC RDW Plt Count MPV Puncture Site rt brach pCO2 48 H pO2 63 L Base Excess 9.9 H O2 Saturation 91.6 L ABG pH 7.47 H ABG HCO3 34.9 H* ABG O2 Sat (Measured) 93.7 L Clay Test n/a A-a Gradient 105 a/A Ratio 0.38 Hemoglobin 11.6 Carboxyhemoglobin 1.6 Methemoglobin 0.7 L Temperature 37.0 POC O2 Flow Rate 32 Sodium Potassium 2.9 L* 3.1 L Chloride Carbon Dioxide Anion Gap BUN Creatinine Estimated GFR Glucose POC Glucometer 174 H Calcium Magnesium Total Bilirubin AST ALT Alkaline Phosphatase Troponin I Serum Total Protein Albumin 05/21/22 05/21/22 05/21/22 11:44 08:57 07:19 WBC RBC Hgb Hct MCV MCH MCHC RDW Plt Count MPV Puncture Site pCO2 pO2 Base Excess O2 Saturation ABG pH ABG HCO3 ABG O2 Sat (Measured) Clay Test A-a Gradient a/A Ratio Hemoglobin Carboxyhemoglobin Methemoglobin Temperature POC O2 Flow Rate Sodium Potassium 3.4 L Chloride Carbon Dioxide Anion Gap BUN Creatinine Estimated GFR Glucose POC Glucometer 151 H 164 H Calcium Magnesium Total Bilirubin AST ALT Alkaline Phosphatase Troponin I Serum Total Protein Albumin 05/21/22 05/21/22 05/21/22 05:57 04:50 04:50 WBC 6.9 RBC 4.07 L Hgb 10.7 L Hct 33.2 L MCV 81.6 MCH 26.3 MCHC 32.2 RDW 15.8 H Plt Count 223 MPV 9.5 Puncture Site pCO2 pO2 Base Excess O2 Saturation ABG pH ABG HCO3 ABG O2 Sat (Measured) Clay Test A-a Gradient a/A Ratio Hemoglobin Carboxyhemoglobin Methemoglobin Temperature POC O2 Flow Rate Sodium 136 L Potassium 3.0 L* Chloride 95 L Carbon Dioxide 33 H Anion Gap 11 BUN 23 H Creatinine 0.85 Estimated GFR > 60.0 Glucose 181 H POC Glucometer Calcium 8.1 L Magnesium 2.1 Total Bilirubin 0.60 AST 160 H ALT 145 H Alkaline Phosphatase 124 Troponin I Serum Total Protein 7.0 Albumin 3.7 05/21/22 05/20/22 05/20/22 00:29 20:54 20:12 WBC RBC Hgb Hct MCV MCH MCHC RDW Plt Count MPV Puncture Site pCO2 pO2 Base Excess O2 Saturation ABG pH ABG HCO3 ABG O2 Sat (Measured) Clay Test A-a Gradient a/A Ratio Hemoglobin Carboxyhemoglobin Methemoglobin Temperature POC O2 Flow Rate Sodium Potassium Chloride Carbon Dioxide Anion Gap BUN Creatinine Estimated GFR Glucose POC Glucometer 169 H Calcium Magnesium Total Bilirubin AST ALT Alkaline Phosphatase Troponin I 0.189 H* 0.205 H* Serum Total Protein Albumin Orders (Last 24 hours) Category Date Time Status Admission Status Change [Change to Full Admit] ROUTINE Care 05/21/22 12:00 Active Miscellaneous Nursing Order ROUTINE Care 05/21/22 06:08 Active Patient Access Coordinator/Discharge Plan ROUTINE Cons 05/22/22 08:00 Active ARTERIAL BLOOD GASES Routine Lab 05/21/22 12:03 Completed BMP AM.LAB Lab 05/22/22 04:00 Ordered CBC AM.LAB Lab 05/21/22 04:50 Completed CBC AM.LAB Lab 05/22/22 04:00 Ordered CBC AM.LAB Lab 05/23/22 04:00 Ordered CMP AM.LAB Lab 05/21/22 04:50 Completed CMP AM.LAB Lab 05/22/22 04:00 Ordered CMP AM.LAB Lab 05/23/22 04:00 Ordered HEMOGLOBIN A1C Routine Lab 05/20/22 16:40 Completed MAGNESIUM AM.LAB Lab 05/22/22 04:00 Ordered MAGNESIUM Stat Lab 05/21/22 05:57 Completed POCT GLUCOSE Stat Lab 05/20/22 17:16 Completed POCT GLUCOSE Stat Lab 05/20/22 20:54 Completed POCT GLUCOSE Stat Lab 05/21/22 07:19 Completed POCT GLUCOSE Stat Lab 05/21/22 11:44 Completed POCT GLUCOSE Stat Lab 05/21/22 16:27 Completed Potassium Q4H Lab 05/21/22 08:57 Completed Potassium Q4H Lab 05/21/22 13:16 Completed TROPONIN Q4H Lab 05/20/22 20:12 Completed TROPONIN Q4H Lab 05/21/22 00:29 Completed Aspirin EC 325 mg [Ecotrin 325 MG] Med 05/20/22 23:58 Discontinued 325 mg PO STAT ONE Diltiazem HCl 50 mg/10 ml [Cardizem IV 50 MG/10 ML Med 05/20/22 17:00 Active *] 5 mg IV Q12H Diltiazem HCl 50 mg/10 ml [Cardizem IV 50 MG/10 ML Med 05/21/22 06:26 Discontinued *] 50 mg IV .STK-MED ONE Haloperidol Lactate 5 mg [Haldol 5 MG] Med 05/21/22 12:17 Active 5 mg IV Q8H PRN PRN Methylprednis Sod Succ 125 mg* [solu-MEDROL] Med 05/21/22 17:14 Discontinued 125 mg .ROUTE .STK-MED ONE Olanzapine Odt 5 mg [Zyprexa Zydis 5 MG] Med 05/21/22 10:00 Discontinued 10 mg PO STAT ONE Olanzapine Odt 5 mg [Zyprexa Zydis 5 MG] Med 05/21/22 22:00 Active 5 mg PO QHS Potassium Chloride 20Meq/100Ml [POTASSIUM CHLORIDE 20 Med 05/21/22 07:00 Discontinued mEq IN WATER 100ML] 100 ml IV Q2H Quetiapine Fumarate 25 mg [Seroquel 25 MG] Med 05/21/22 22:00 Active 50 mg PO BID Quetiapine Fumarate 25 mg [Seroquel 25 MG] Med 05/21/22 14:18 Discontinued 50 mg PO NOW ONE Patient Care Notes (Last 24 hours) 05/21/22 16:04 Nursing Note by Roseann Eldridge Mouth swabbed. Initialized on 05/21/22 16:04 - END OF NOTE 05/21/22 16:03 Nursing Note by Roseann Eldridge 1400 Mouth swabbed. Initialized on 05/21/22 16:03 - END OF NOTE 05/21/22 15:56 Nursing Note by Roseann Eldridge Patient remains agitated, uncooperative and restless. HS and RN's at bedside. Initialized on 05/21/22 15:56 - END OF NOTE 05/21/22 15:24 Nursing Note by Roseann Eldridge Called and talked with next of kin (daughter)Chitra regarding Full Code/DNR. Daughter states, she has spoken to brother and that want to continue to keep patient a Full Code. Even know after talking with them about Dr. Sutton saying, he won't get any better and there is nothing else we can do for him. Daughter also, states, after talking to Hailey Banda they want to take him home on hospice. Information given to HS and Hailey Banda. Initialized on 05/21/22 15:24 - END OF NOTE 05/21/22 15:09 Nursing Note by Roseann Eldridge RN initiated new IV site right upper arm 20g without difficulty. K+ infusion restarted at this time. Initialized on 05/21/22 15:09 - END OF NOTE 05/21/22 14:20 Nursing Note by Roseann Eldridge RT notified of patient needing breathing tx. Took four nurses to assist with tx. Patient combative, aggressive, uncooperative and restless. Lab phoned with critical K+. Dr. Sutton notified of patients critical lab. Told Dr. Sutton that he still has 3 bags left to infuse. Also, Dr. Sutton informed of patients behavior and he states, we can't given him anything else. Then, he ordered Seraquel 50mg now and then, Seraquel 50mg BID. Patient wanting to stand up. Patient IV has came out. Notified HS for another new IV to be started. Initialized on 05/21/22 14:20 - END OF NOTE 05/21/22 14:01 Case Management Note by Hailey Banda PATIENT'S SON IS GREGORIO PEDRAZA (SP?) [phone] Initialized on 05/21/22 14:01 - END OF NOTE 05/21/22 12:35 Case Management Note by Hailey Banda CALLED AND S/W NIECE THAT PATENT LIVES WITH ABOUT NH FOR REHAB VS HOSPICE. SHE REPORTS THAT SHE KNOWS PATIENT WILL NOT WANT TO BE AT A FACILITY. HE WILL WANT TO COME HOME. SHE REPORTS HE IS TIRED OF COMING TO THE HOSPITAL AND WAS MAD THAT SHE MADE HIM COME THIS LAST TIME. SHE THINKS HOME WITH HOSPICE WOULD BE THE BEST OPTION FOR PATIENT. SHE WILL CALL AND DISCUSS THIS WITH PATIENT'S SON GREGORIO Initialized on 05/21/22 12:35 - END OF NOTE 05/21/22 10:40 Case Management Note by Hailey Banda PATIENT CONFUSED. THIS [employer] WITH PATIENT. HE LIVES WITH HIS NIECE WHO HELPS CARE FOR HIM. HE HAS HHC. WILL DEFER CM AT THIS TIME D/T EXTREME CONFUSION AND AGITATION. MAY NEED NH PLACEMENT BUT PATIENT HAS REFUSED IN THE PAST Initialized on 05/21/22 10:40 - END OF NOTE 05/21/22 10:38 Case Management Note by Hailey Banda PATIENT HAS [facility]- THEY WERE NOTIFIED PATIENT HERE OBS. THEY WILL NEED NOTIFIED AT TIME OF DC AT [phone]. THEY WILL NEED FAXED THE DC INSTRUCTIONS, DC MD LIST AND DC SUMMARY ( IF AVAILABLE) TO [phone] Initialized on 05/21/22 10:38 - END OF NOTE 05/21/22 10:18 Nursing Note by Hailey Jain [id number] Nasal cannula on per RN. Pt continuously takes nasal cannula off. Initialized on 05/21/22 10:18 - END OF NOTE 05/21/22 09:42 Nursing Note by Hailey Jain Pt is agitated, restless, confused, unwilling to follow directions, trying to get out of bed. HS notified Dr. Sutton. New orders received. Zyprexa given. Initialized on 05/21/22 09:42 - END OF NOTE Code(s): I50.33 - ACUTE ON CHRONIC DIASTOLIC (CONGESTIVE) HEART FAILURE (2) COPD exacerbation Current Visit: Yes Status: Acute Code(s): J44.1 - CHRONIC OBSTRUCTIVE PULMONARY DISEASE W (ACUTE) EXACERBATION (3) Acute and chronic respiratory failure with hypoxia Current Visit: Yes Status: Resolved Code(s): J96.21 - ACUTE AND CHRONIC RESPIRATORY FAILURE WITH HYPOXIA (4) Alcoholic brain degeneration Current Visit: Yes Status: Acute Code(s): F10.20 - ALCOHOL DEPENDENCE, UNCOMPLICATED; G31.2 - DEGENERATION OF NERVOUS SYSTEM DUE TO ALCOHOL (5) Delirium due to multiple etiologies Current Visit: Yes Status: Acute Code(s): F05 - DELIRIUM DUE TO KNOWN PHYSIOLOGICAL CONDITION
[2022-05-21] MEDS ORDERED: MORPHINE SULFATE 2 MG INJ ONE (19:10)
[2022-05-21] MEDS ORDERED: MORPHINE SULFATE 2 MG INJ IV ONE (19:13)
[2022-05-21] MEDS ORDERED: Ketamine HCl 50 MG/ML IV ONE ×2 (19:50→19:53)
[2022-05-21] MEDS ORDERED: DIPRIVAN 200 MG/20 ML IV STA (19:50)
[2022-05-21] MEDS ORDERED: Nimbex 20MG/10 Ml Vial (HIGH RISK MED) IV STA (20:00)
[2022-05-21] MEDS ORDERED: Nimbex 200MG/20 Ml MDV (HIGH RISK MED)** 200 MG in Dextrose 5%/Water IV Soln. 250 ML 18... IV PRN (20:11)
[2022-05-21 20:36] LABS: Absolute Neutrophil Ct (ANC) 7.54 x10^3/uL (1.4-6.9); BASOPHIL % 0.1 % (0.0-0.4); Basophil (Absolute #) 0.01 x10^3/uL (0-0.4); Eosinophil (Absolute #) 0 x10^3/uL (0-0.5); Hematocrit 30.7 % (42-50); IMMATURE GRAN # 0.07 x10^3u/L (0.00-0.03); IMMATURE GRAN % 0.8 % (0.00-0.4); Lymphocyte (Absolute #) 0.45 x10^3/uL (1.0-4.6); Lymphocytes % 5.3 % (24.0-44.0); Mean Cell Volume 82.5 fL (78-100); Mean Corpuscular Hemoglobin 26.9 pg (26-32); Mean Corpuscular Hgb Concent. 32.6 g/dL (32-36); Mean Platelet Volume 9.4 fL (7.5-11.0); Monocyte (Absolute #) 0.48 x10^3/uL (0.0-1.3); Monocytes % 5.6 % (0.0-12.0); Neutrophil % 88.2 % (36.0-66.0); Platelet Count 236 x10^3/uL (150-450); Red Blood Count 3.72 x10^6/uL (4.1-5.6); Red Cell Distribution Width 15.8 % (11.5-14.0); White Blood Count 8.6 x10^3/uL (4.0-10.5)
[2022-05-21] MEDS: Propofol 1000 mg/100 ml Bottle 100 ML IV PRN (20:40)
[2022-05-21 20:57] LABS: ALBUMIN 3.9 g/dL (3.5-5.0); ALKALINE PHOSPHATASE 120 U/L (38-126); BLOOD UREA NITROGEN 30 mg/dL (9-20); CHLORIDE 96 mmol/L (98-107); Calcium 8.1 mg/dL (8.4-10.2); Carbon Dioxide 35 mmol/L (22-30); Creatinine 1 1.02 mg/dL (0.66-1.25); EST GLOMERULAR FILTRATION RATE > 60.0 ML/MIN; Glucose 180 mg/dL (74-106); MAGNESIUM 2.2 mg/dL (1.6-2.3); NT PRO BNPII 11900 pg/mL (<300); Potassium 3.3 mmol/L (3.5-5.1); SGOT/AST 120 U/L (17-59); SGPT/ALT 140 U/L (0-50); SODIUM 136 mmol/L (137-145); Total Protein 7.3 g/dL (6.3-8.2)
[2022-05-21 21:13] LABS: A-aADO2 216; ABG HEMOGLOBIN 10.4; ARTERIAL BLD GAS O2 SATURATION 99.7 % (95-100); ARTERIAL BLOOD GAS BASE EXCESS 11.8 (-2.0-2.0); ARTERIAL BLOOD GAS FIO2 100 %; ARTERIAL BLOOD GAS PCO2 48 mmHg (35-45); ARTERIAL BLOOD GAS PO2 437 mmHg (75-100); ARTERIAL BLOOD GAS pH 7.49 (7.35-7.45); CARBOXYHEMOGLOBIN 0.7 % THgb (0.0-6.9); HCO3- 36.6 (22-28); HGB O2 SAT 98.4 g/dF (94-100); Methhemoglobin 0.6 % (1.4-1.5); paO2 pAO1 0.67
[2022-05-21 21:14] LABS: ABG SITE RIGHT BRACHIAL; ARTERIAL BLD GAS TIDAL VOLUME 600 cc; ARTERIAL BLOOD GAS PEEP 8 cmH2O; ARTERIAL BLOOD GAS VENT MODE AC; ARTERIAL BLOOD GAS VENT RATE 20 /MIN
[2022-05-21 21:18] LABS: TROPONIN 0.165 ng/mL (0.000-0.034)
[2022-05-21 21:33] LABS: Slide Review 1 YES
[2022-05-21] MEDS ORDERED: Zyprexa Zydis 5 MG PO SCH (22:00)
[2022-05-21] MEDS ORDERED: Bactroban OINTMENT TP SCH (22:15)
[2022-05-21] MEDS: Seroquel 25 MG PO SCH (22:55)
[2022-05-21] MEDS: PERIDEX MM SCH (22:55)
[2022-05-21] MEDS: Lubrifresh P.M. 3.5 gm Ointment OP SCH (23:01)
[2022-05-21 23:03] LABS: A-aADO2 179; ABG HEMOGLOBIN 13.4; ARTERIAL BLD GAS O2 SATURATION 99.3 % (95-100); ARTERIAL BLOOD GAS BASE EXCESS 13.4 (-2.0-2.0); ARTERIAL BLOOD GAS FIO2 50 %; ARTERIAL BLOOD GAS PCO2 48 mmHg (35-45); ARTERIAL BLOOD GAS PO2 118 mmHg (75-100); ARTERIAL BLOOD GAS pH 7.51 (7.35-7.45); CARBOXYHEMOGLOBIN 1.2 % THgb (0.0-6.9); HCO3- 38.3 (22-28); HGB O2 SAT 97.1 g/dF (94-100)
[2022-05-21 23:04] LABS: ABG POTASSIUM 2.7 (3.5-5.1); ABG SITE LEFT BRACHIAL; ARTERIAL BLD GAS TIDAL VOLUME 600 cc; ARTERIAL BLOOD GAS PEEP 8 cmH2O; ARTERIAL BLOOD GAS VENT MODE AC; ARTERIAL BLOOD GAS VENT RATE 16 /MIN
[2022-05-21] MEDS ORDERED: POTASSIUM CHLORIDE 20 mEq IN WATER 100ML 100 ML IV ONE (23:33)
[2022-05-22] MEDS: K-LYTE PO SCH ×3 (02:08→06:13)
[2022-05-22] MEDS: DUONEB 0.5-3 MG/3 ml Neb IH SCH ×6 (03:15→22:32)
[2022-05-22] MEDS: Cardizem IV 50 MG/10 ML IV SCH ×2 (04:17→21:38)
[2022-05-22 04:47] LABS: Hematocrit 29.1 % (42-50); Hemoglobin 9.2 g/dL (12.5-18.0); Mean Corpuscular Hemoglobin 25.9 pg (26-32); Mean Corpuscular Hgb Concent. 31.6 g/dL (32-36); Mean Platelet Volume 9.9 fL (7.5-11.0); Platelet Count 236 x10^3/uL (150-450); Red Blood Count 3.55 x10^6/uL (4.1-5.6); Red Cell Distribution Width 15.9 % (11.5-14.0); White Blood Count 7.4 x10^3/uL (4.0-10.5)
[2022-05-22 05:11] LABS: ALBUMIN 3.5 g/dL (3.5-5.0); ALKALINE PHOSPHATASE 105 U/L (38-126); ANION GAP 4.2 MEQ/L (5-15); BLOOD UREA NITROGEN 29 mg/dL (9-20); CHLORIDE 95 mmol/L (98-107); Calcium 8.1 mg/dL (8.4-10.2); Carbon Dioxide 38 mmol/L (22-30); Creatinine 1 0.85 mg/dL (0.66-1.25); EST GLOMERULAR FILTRATION RATE > 60.0 ML/MIN; Glucose 174 mg/dL (74-106); MAGNESIUM 2.2 mg/dL (1.6-2.3); Potassium 3.4 mmol/L (3.5-5.1); SGOT/AST 95 U/L (17-59); SGPT/ALT 126 U/L (0-50); SODIUM 134 mmol/L (137-145); Total Protein 6.6 g/dL (6.3-8.2)
[2022-05-22 05:34] LABS: ARTERIAL BLOOD GAS PCO2 45 mmHg (35-45); ARTERIAL BLOOD GAS PO2 87 mmHg (75-100); ARTERIAL BLOOD GAS pH 7.54 (7.35-7.45); HCO3- 38.5 (22-28)
[2022-05-22 05:35] LABS: A-aADO2 142; ABG HEMOGLOBIN 10.3; ABG POTASSIUM 3.9 (3.5-5.1); ARTERIAL BLD GAS O2 SATURATION 98.3 % (95-100); ARTERIAL BLD GAS TIDAL VOLUME 600 cc; ARTERIAL BLOOD GAS BASE EXCESS 14.4 (-2.0-2.0); ARTERIAL BLOOD GAS FIO2 40 %; ARTERIAL BLOOD GAS PEEP 8 cmH2O; ARTERIAL BLOOD GAS VENT MODE AC; ARTERIAL BLOOD GAS VENT RATE 16 /MIN; CARBON DIOXIDE 39 mEq/L (23-27); Methhemoglobin 0.6 % (1.4-1.5); paO2 pAO1 0.38
[2022-05-22 05:36] LABS: ABG SITE RIGHT RADIAL; ALLEN TEST OK? YES; CARBOXYHEMOGLOBIN 0.9 % THgb (0.0-6.9); HGB O2 SAT 97 g/dF (94-100)
[2022-05-22] MEDS: solu-MEDROL 60 MG, Sterile H2O 10 ml 2 ML IV SCH ×6 (06:12→19:32)
[2022-05-22] MEDS ORDERED: Sodium Chloride 0.9% 1000 ML 1,000 ML IV STA (08:33)
--- NOTE | 2022-05-22 08:39 | XRAY ---
Indication: Endotracheal and OG tube placement. Comparison: May 19, 2022 Portable chest demonstrates new endotracheal tube tip 3 cm above brian. New OG tube coiled in cervical esophagus with tip projecting C7 level. Remaining chest demonstrates worsening mild diffuse right lung interstitial alveolar opacities. Left lung clear. Heart not enlarged.
--- NOTE | 2022-05-22 08:41 | XRAY ---
Indication: Readjustment of OG tube. Comparison: Thickened earlier in the day. Portable chest now demonstrates OG tube traversing chest with tip presumed in stomach. Stable endotracheal tube tip 3 cm above brian. Remaining chest unchanged.
[2022-05-22] MEDS ORDERED: FENTANYL 500 MCG/10 ML VIAL 1,500 MCG in Sodium Chloride 0.9% 150 ML 120 ML IV ONE (09:00)
[2022-05-22] MEDS ORDERED: Sodium Chloride 0.9% 1000 ML 1,000 ML ONE (09:21)
[2022-05-22] MEDS ORDERED: PHARMACY DOSING REQUEST MC ONE (09:23)
[2022-05-22] MEDS ORDERED: Sodium Chloride 0.9% 500 ML 500 ML IV ONE (09:25)
[2022-05-22] MEDS: FENTANYL 500 MCG/10 ML VIAL 1,500 MCG in Sodium Chloride 0.9% 150 ML 120 ML IV PRN (09:50)
[2022-05-22] MEDS: Seroquel 25 MG PO SCH (09:58)
[2022-05-22] MEDS: ATARAX 25 MG PO SCH ×2 (09:58→17:18)
[2022-05-22] MEDS: Cordarone 200 MG PO SCH (10:10)
[2022-05-22] MEDS: Lopressor 50 MG PO SCH (10:10)
[2022-05-22] MEDS: Propofol 1000 mg/100 ml Bottle 100 ML IV PRN ×2 (10:48→21:19)
[2022-05-22] MEDS: Pepcid 20 MG VIAL IV SCH ×2 (11:10→22:04)
[2022-05-22] MEDS: ENOXAPARIN SODIUM SQ SCH (11:16)
[2022-05-22] MEDS: NEXTERONE 360 MG/200 ML BAG 360 MG/200 ML PLAST..BAG IV SCH ×2 (11:19→16:23)
[2022-05-22] MEDS: Ativan 2 MG/1 ML VIAL IV PRN (11:32)
[2022-05-22] MEDS: Bactroban OINTMENT TP SCH ×2 (12:09→22:04)
--- NOTE | 2022-05-22 12:10 | XRAY ---
Indication: Endotracheal tube placement. Comparison: One day earlier. Portable chest demonstrates endotracheal tube tip 4.5 cm above brian, previously 3 cm. Stable NG tube tip in stomach. Remaining chest demonstrates new hazy bibasilar infiltrates versus atelectasis without consolidation/large effusion. Heart not enlarged.
[2022-05-22] MEDS: Sodium Chloride 0.9% 1000 ML 1,000 ML IV SCH (12:58)
[2022-05-22] MEDS: Lasix 40 MG/4 ML IV SCH (13:48)
[2022-05-22] MEDS: Lubrifresh P.M. 3.5 gm Ointment OP SCH ×2 (13:48→22:04)
[2022-05-22] MEDS: PERIDEX MM SCH ×2 (13:48→22:06)
--- NOTE | 2022-05-22 13:56 | PCM.NOTE ---
Date and Time: 05/22/22 1357 Subjective Assessment: Last 24 hours events noted. Patient was very combative last night, also extremely Short of breath so due to hemodynamically compromise, He was intubated. - Review of Systems Respiratory: Other (intubated) All Other Systems: Unable due to condition Objective Exam General Appearance: moderate distress Skin Exam: warm, dry Eye Exam: PERRL Ears, Nose, Throat Exam: normal ENT inspection Neck Exam: normal inspection Respiratory Exam: diminished breath sounds, crackles/rales, rhonchi Cardiovascular Exam: irregular Gastrointestinal/Abdomen Exam: soft Extremity Exam: normal inspection, inflammation, pedal edema, swelling Back Exam: normal inspection OBJECTIVE DATA Vital Signs: Vital Signs - 24 hr Temp Pulse Resp BP BP BP BP 05/22/22 13:00 101 H 12 85/52 05/22/22 12:00 98.6 F 108 H 17 81/50 05/22/22 11:00 98.2 F 131 H 16 110/57 05/22/22 10:08 139 H 18 141/74 05/22/22 10:00 98.4 F 130 H 16 99/64 113/64 05/22/22 09:00 98.0 F 147 H 12 99/64 05/22/22 08:00 97.8 F 140 H 16 112/83 154/102 05/22/22 07:00 98.4 F 133 H 16 152/104 05/22/22 06:53 133 H 16 98/72 05/22/22 06:36 154 H 18 154/97 05/22/22 06:33 154 H 18 154/97 05/22/22 06:13 140 H 16 166/98 05/22/22 06:00 140 H 16 166/98 05/22/22 05:30 115 H 16 113/74 05/22/22 05:19 05/22/22 05:00 115 H 16 109/74 05/22/22 04:30 124 H 16 90/62 05/22/22 04:00 98.4 F 123 H 18 119/80 119/80 05/22/22 03:30 125 H 16 115/78 05/22/22 03:15 111 H 16 05/22/22 03:00 117 H 16 89/63 05/22/22 02:30 134 H 16 120/80 05/22/22 02:00 148 H 18 128/95 05/22/22 01:50 135 H 29 H 151/96 05/22/22 01:45 134 H 21 151/96 05/22/22 01:30 117 H 16 111/59 05/22/22 01:15 119 H 16 101/66 05/22/22 01:00 116 H 16 114/78 05/22/22 00:45 123 H 18 118/74 118/74 05/22/22 00:30 119 H 16 111/71 05/22/22 00:15 114 H 16 108/75 108/75 05/22/22 00:00 120 H 16 123/75 05/21/22 23:45 97.8 F 123 H 16 133/82 133/82 05/21/22 23:30 115 H 16 128/84 05/21/22 23:15 122 H 16 132/96 05/21/22 23:11 128 H 16 05/21/22 23:10 118 H 18 136/82 05/21/22 23:00 130 H 16 148/95 05/21/22 22:45 128 H 21 137/92 05/21/22 22:40 129 H 16 106/72 05/21/22 22:30 129 H 16 140/89 05/21/22 22:15 127 H 21 148/94 05/21/22 22:10 127 H 18 157/95 05/21/22 22:00 127 H 16 132/84 05/21/22 21:45 128 H 18 99/66 05/21/22 21:40 128 H 16 99/65 05/21/22 21:30 129 H 18 88/60 05/21/22 21:25 129 H 19 89/61 05/21/22 21:20 129 H 16 86/58 05/21/22 21:15 130 H 16 88/63 05/21/22 21:10 130 H 16 100/62 100/62 05/21/22 21:05 131 H 17 118/71 05/21/22 21:00 130 H 16 113/66 05/21/22 20:55 130 H 20 120/71 05/21/22 20:50 130 H 20 150/83 05/21/22 20:45 130 H 20 143/84 05/21/22 20:40 130 H 22 136/90 136/90 05/21/22 20:35 131 H 20 118/74 05/21/22 20:30 131 H 20 98/64 05/21/22 20:25 132 H 25 H 83/56 05/21/22 20:20 132 H 20 128/75 05/21/22 20:15 98 F 132 H 20 145/83 05/21/22 18:57 125 H 26 H 05/21/22 16:00 97.7 F 125 H 18 153/78 05/21/22 14:06 126 H 20 Pulse Ox 05/22/22 13:00 97 05/22/22 12:00 98 05/22/22 11:00 94 L 05/22/22 10:08 05/22/22 10:00 96 05/22/22 09:00 97 05/22/22 08:00 99 05/22/22 07:00 98 05/22/22 06:53 98 05/22/22 06:36 98 05/22/22 06:33 05/22/22 06:13 05/22/22 06:00 99 05/22/22 05:30 98 05/22/22 05:19 98 05/22/22 05:00 98 05/22/22 04:30 97 05/22/22 04:00 99 05/22/22 03:30 100 05/22/22 03:15 99 05/22/22 03:00 98 05/22/22 02:30 98 05/22/22 02:00 100 05/22/22 01:50 05/22/22 01:45 97 05/22/22 01:30 99 05/22/22 01:15 99 05/22/22 01:00 99 05/22/22 00:45 100 05/22/22 00:30 100 05/22/22 00:15 99 05/22/22 00:00 99 05/21/22 23:45 99 05/21/22 23:30 99 05/21/22 23:15 99 05/21/22 23:11 100 05/21/22 23:10 05/21/22 23:00 100 05/21/22 22:45 100 05/21/22 22:40 05/21/22 22:30 100 05/21/22 22:15 99 05/21/22 22:10 05/21/22 22:00 99 05/21/22 21:45 98 05/21/22 21:40 05/21/22 21:30 100 05/21/22 21:25 100 05/21/22 21:20 100 05/21/22 21:15 100 05/21/22 21:10 100 05/21/22 21:05 100 05/21/22 21:00 100 05/21/22 20:55 100 05/21/22 20:50 100 05/21/22 20:45 99 05/21/22 20:40 100 05/21/22 20:35 100 05/21/22 20:30 100 05/21/22 20:25 100 05/21/22 20:20 100 05/21/22 20:15 100 05/21/22 18:57 05/21/22 16:00 93 L 05/21/22 14:06 95 Pain Assessment - Last Documented Pain Intensity 2 Intake and Output: Intake & Output 05/20/22 05/21/22 05/22/22 05/23/22 11:59 11:59 11:59 11:59 Intake Total 0 0 1298 0 Output Total 3850 2100 Balance 0 -3850 -802 0 Weight 74.525 kg 67.3 kg 67 kg Lab Results: Lab Results-Last 24 Hours 05/21/22 05/21/22 05/21/22 Range/Units 13:16 16:27 18:25 WBC 8.6 (4.0-10.5) x10^3/uL RBC 3.72 L (4.1-5.6) x10^6/uL Hgb 10.0 L (12.5-18.0) g/dL Hct 30.7 L (42-50) % MCV 82.5 (78-100) fL MCH 26.9 (26-32) pg MCHC 32.6 (32-36) g/dL RDW 15.8 H (11.5-14.0) % Plt Count 236 (150-450) x10^3/uL MPV 9.4 (7.5-11.0) fL Gran % 88.2 H (36.0-66.0) % Immature Gran % (Auto) 0.8 H (0.00-0.4) % Nucleat RBC Rel Count 0.0 (0.00-0.1) % Eos # (Auto) 0 (0-0.5) x10^3/uL Immature Gran # (Auto) 0.07 H (0.00-0.03) x10^3u/L Absolute Lymphs (auto) 0.45 L (1.0-4.6) x10^3/uL Absolute Monos (auto) 0.48 (0.0-1.3) x10^3/uL Absolute Nucleated RBC 0.00 (0.00-0.01) x10^3u/L Lymphocytes % 5.3 L (24.0-44.0) % Monocytes % 5.6 (0.0-12.0) % Eosinophils % 0.0 (0.00-5.0) % Basophils % 0.1 (0.0-0.4) % Absolute Granulocytes 7.54 H (1.4-6.9) x10^3/uL Basophils # 0.01 (0-0.4) x10^3/uL Puncture Site pCO2 (35-45) mmHg pO2 (75-100) mmHg Base Excess (-2.0-2.0) O2 Saturation (94-100) g/dF ABG pH (7.35-7.45) ABG HCO3 (22-28) ABG O2 Sat (Measured) (95-100) % Clay Test A-a Gradient a/A Ratio Hemoglobin Carboxyhemoglobin (0.0-6.9) % THgb Methemoglobin (1.4-1.5) % Temperature C POC O2 Flow Rate % Vent Mode Vent Rate /MIN Tidal Volume cc PEEP cmH2O Sodium (137-145) mmol/L Potassium 2.9 L* (3.5-5.1) mmol/L Chloride (98-107) mmol/L Carbon Dioxide (22-30) mmol/L Anion Gap (5-15) MEQ/L BUN (9-20) mg/dL Creatinine (0.66-1.25) mg/dL Estimated GFR ML/MIN Glucose (74-106) mg/dL POC Glucometer 174 H (74 to 106) mg/dL Calcium (8.4-10.2) mg/dL Magnesium (1.6-2.3) mg/dL Total Bilirubin (0.2-1.3) mg/dL AST (17-59) U/L ALT (0-50) U/L Alkaline Phosphatase (38-126) U/L Troponin I (0.000-0.034) ng/mL NT-Pro-B Natriuret Pep (<300) pg/mL Serum Total Protein (6.3-8.2) g/dL Albumin (3.5-5.0) g/dL Procalcitonin (0.030-0.080) ng/mL Slides for Path Review YES 05/21/22 05/21/22 05/21/22 Range/Units 18:25 20:25 20:45 WBC (4.0-10.5) x10^3/uL RBC (4.1-5.6) x10^6/uL Hgb (12.5-18.0) g/dL Hct (42-50) % MCV (78-100) fL MCH (26-32) pg MCHC (32-36) g/dL RDW (11.5-14.0) % Plt Count (150-450) x10^3/uL MPV (7.5-11.0) fL Gran % (36.0-66.0) % Immature Gran % (Auto) (0.00-0.4) % Nucleat RBC Rel Count (0.00-0.1) % Eos # (Auto) (0-0.5) x10^3/uL Immature Gran # (Auto) (0.00-0.03) x10^3u/L Absolute Lymphs (auto) (1.0-4.6) x10^3/uL Absolute Monos (auto) (0.0-1.3) x10^3/uL Absolute Nucleated RBC (0.00-0.01) x10^3u/L Lymphocytes % (24.0-44.0) % Monocytes % (0.0-12.0) % Eosinophils % (0.00-5.0) % Basophils % (0.0-0.4) % Absolute Granulocytes (1.4-6.9) x10^3/uL Basophils # (0-0.4) x10^3/uL Puncture Site RIGHT BRACHIAL pCO2 48 H (35-45) mmHg pO2 437 H* (75-100) mmHg Base Excess 11.8 H (-2.0-2.0) O2 Saturation 98.4 (94-100) g/dF ABG pH 7.49 H (7.35-7.45) ABG HCO3 36.6 H* (22-28) ABG O2 Sat (Measured) 99.7 (95-100) % Clay Test NOT APPLICABLE A-a Gradient 216 a/A Ratio 0.67 Hemoglobin 10.4 Carboxyhemoglobin 0.7 (0.0-6.9) % THgb Methemoglobin 0.6 L (1.4-1.5) % Temperature 37.0 C POC O2 Flow Rate 100 % Vent Mode AC Vent Rate 20 /MIN Tidal Volume 600 cc PEEP 8 cmH2O Sodium 136 L (137-145) mmol/L Potassium 3.3 L 3.0 L (3.5-5.1) mmol/L Chloride 96 L (98-107) mmol/L Carbon Dioxide 35 H (22-30) mmol/L Anion Gap 8.0 (5-15) MEQ/L BUN 30 H (9-20) mg/dL Creatinine 1.02 (0.66-1.25) mg/dL Estimated GFR > 60.0 ML/MIN Glucose 180 H (74-106) mg/dL POC Glucometer (74 to 106) mg/dL Calcium 8.1 L (8.4-10.2) mg/dL Magnesium 2.2 (1.6-2.3) mg/dL Total Bilirubin 0.60 (0.2-1.3) mg/dL AST 120 H (17-59) U/L ALT 140 H (0-50) U/L Alkaline Phosphatase 120 (38-126) U/L Troponin I 0.165 H* (0.000-0.034) ng/mL NT-Pro-B Natriuret Pep 07761 (<300) pg/mL Serum Total Protein 7.3 (6.3-8.2) g/dL Albumin 3.9 (3.5-5.0) g/dL Procalcitonin 0.366 H (0.030-0.080) ng/mL Slides for Path Review 05/21/22 05/21/22 05/22/22 Range/Units 21:32 22:55 01:30 WBC (4.0-10.5) x10^3/uL RBC (4.1-5.6) x10^6/uL Hgb (12.5-18.0) g/dL Hct (42-50) % MCV (78-100) fL MCH (26-32) pg MCHC (32-36) g/dL RDW (11.5-14.0) % Plt Count (150-450) x10^3/uL MPV (7.5-11.0) fL Gran % (36.0-66.0) % Immature Gran % (Auto) (0.00-0.4) % Nucleat RBC Rel Count (0.00-0.1) % Eos # (Auto) (0-0.5) x10^3/uL Immature Gran # (Auto) (0.00-0.03) x10^3u/L Absolute Lymphs (auto) (1.0-4.6) x10^3/uL Absolute Monos (auto) (0.0-1.3) x10^3/uL Absolute Nucleated RBC (0.00-0.01) x10^3u/L Lymphocytes % (24.0-44.0) % Monocytes % (0.0-12.0) % Eosinophils % (0.00-5.0) % Basophils % (0.0-0.4) % Absolute Granulocytes (1.4-6.9) x10^3/uL Basophils # (0-0.4) x10^3/uL Puncture Site LEFT BRACHIAL pCO2 48 H (35-45) mmHg pO2 118 H (75-100) mmHg Base Excess 13.4 H (-2.0-2.0) O2 Saturation 97.1 (94-100) g/dF ABG pH 7.51 H (7.35-7.45) ABG HCO3 38.3 H* (22-28) ABG O2 Sat (Measured) 99.3 (95-100) % Clay Test NOT APPLICABLE A-a Gradient 179 a/A Ratio 0.40 Hemoglobin 13.4 Carboxyhemoglobin 1.2 (0.0-6.9) % THgb Methemoglobin 1.0 L (1.4-1.5) % Temperature 37.0 C POC O2 Flow Rate 50 % Vent Mode AC Vent Rate 16 /MIN Tidal Volume 600 cc PEEP 8 cmH2O Sodium (137-145) mmol/L Potassium 2.7 L* 3.2 L (3.5-5.1) mmol/L Chloride (98-107) mmol/L Carbon Dioxide (22-30) mmol/L Anion Gap (5-15) MEQ/L BUN (9-20) mg/dL Creatinine (0.66-1.25) mg/dL Estimated GFR ML/MIN Glucose (74-106) mg/dL POC Glucometer 189 H (74 to 106) mg/dL Calcium (8.4-10.2) mg/dL Magnesium (1.6-2.3) mg/dL Total Bilirubin (0.2-1.3) mg/dL AST (17-59) U/L ALT (0-50) U/L Alkaline Phosphatase (38-126) U/L Troponin I (0.000-0.034) ng/mL NT-Pro-B Natriuret Pep (<300) pg/mL Serum Total Protein (6.3-8.2) g/dL Albumin (3.5-5.0) g/dL Procalcitonin (0.030-0.080) ng/mL Slides for Path Review 05/22/22 05/22/22 05/22/22 Range/Units 04:48 04:48 05:29 WBC 7.4 (4.0-10.5) x10^3/uL RBC 3.55 L (4.1-5.6) x10^6/uL Hgb 9.2 L (12.5-18.0) g/dL Hct 29.1 L (42-50) % MCV 82.0 (78-100) fL MCH 25.9 L (26-32) pg MCHC 31.6 L (32-36) g/dL RDW 15.9 H (11.5-14.0) % Plt Count 236 (150-450) x10^3/uL MPV 9.9 (7.5-11.0) fL Gran % (36.0-66.0) % Immature Gran % (Auto) (0.00-0.4) % Nucleat RBC Rel Count (0.00-0.1) % Eos # (Auto) (0-0.5) x10^3/uL Immature Gran # (Auto) (0.00-0.03) x10^3u/L Absolute Lymphs (auto) (1.0-4.6) x10^3/uL Absolute Monos (auto) (0.0-1.3) x10^3/uL Absolute Nucleated RBC (0.00-0.01) x10^3u/L Lymphocytes % (24.0-44.0) % Monocytes % (0.0-12.0) % Eosinophils % (0.00-5.0) % Basophils % (0.0-0.4) % Absolute Granulocytes (1.4-6.9) x10^3/uL Basophils # (0-0.4) x10^3/uL Puncture Site RIGHT RADIAL pCO2 45 (35-45) mmHg pO2 87 (75-100) mmHg Base Excess 14.4 H (-2.0-2.0) O2 Saturation 97 (94-100) g/dF ABG pH 7.54 H (7.35-7.45) ABG HCO3 38.5 H* (22-28) ABG O2 Sat (Measured) 98.3 (95-100) % Clay Test YES A-a Gradient 142 a/A Ratio 0.38 Hemoglobin 10.3 Carboxyhemoglobin 0.9 (0.0-6.9) % THgb Methemoglobin 0.6 L (1.4-1.5) % Temperature C POC O2 Flow Rate 40 % Vent Mode AC Vent Rate 16 /MIN Tidal Volume 600 cc PEEP 8 cmH2O Sodium 134 L (137-145) mmol/L Potassium 3.4 L 3.9 (3.5-5.1) mmol/L Chloride 95 L (98-107) mmol/L Carbon Dioxide 38 H 39 H (22-30) mmol/L Anion Gap 4.2 L (5-15) MEQ/L BUN 29 H (9-20) mg/dL Creatinine 0.85 (0.66-1.25) mg/dL Estimated GFR > 60.0 ML/MIN Glucose 174 H (74-106) mg/dL POC Glucometer (74 to 106) mg/dL Calcium 8.1 L (8.4-10.2) mg/dL Magnesium 2.2 (1.6-2.3) mg/dL Total Bilirubin 0.60 (0.2-1.3) mg/dL AST 95 H (17-59) U/L ALT 126 H (0-50) U/L Alkaline Phosphatase 105 (38-126) U/L Troponin I (0.000-0.034) ng/mL NT-Pro-B Natriuret Pep (<300) pg/mL Serum Total Protein 6.6 (6.3-8.2) g/dL Albumin 3.5 (3.5-5.0) g/dL Procalcitonin (0.030-0.080) ng/mL Slides for Path Review 05/22/22 05/22/22 Range/Units 05:49 12:28 WBC (4.0-10.5) x10^3/uL RBC (4.1-5.6) x10^6/uL Hgb (12.5-18.0) g/dL Hct (42-50) % MCV (78-100) fL MCH (26-32) pg MCHC (32-36) g/dL RDW (11.5-14.0) % Plt Count (150-450) x10^3/uL MPV (7.5-11.0) fL Gran % (36.0-66.0) % Immature Gran % (Auto) (0.00-0.4) % Nucleat RBC Rel Count (0.00-0.1) % Eos # (Auto) (0-0.5) x10^3/uL Immature Gran # (Auto) (0.00-0.03) x10^3u/L Absolute Lymphs (auto) (1.0-4.6) x10^3/uL Absolute Monos (auto) (0.0-1.3) x10^3/uL Absolute Nucleated RBC (0.00-0.01) x10^3u/L Lymphocytes % (24.0-44.0) % Monocytes % (0.0-12.0) % Eosinophils % (0.00-5.0) % Basophils % (0.0-0.4) % Absolute Granulocytes (1.4-6.9) x10^3/uL Basophils # (0-0.4) x10^3/uL Puncture Site pCO2 (35-45) mmHg pO2 (75-100) mmHg Base Excess (-2.0-2.0) O2 Saturation (94-100) g/dF ABG pH (7.35-7.45) ABG HCO3 (22-28) ABG O2 Sat (Measured) (95-100) % Clay Test A-a Gradient a/A Ratio Hemoglobin Carboxyhemoglobin (0.0-6.9) % THgb Methemoglobin (1.4-1.5) % Temperature C POC O2 Flow Rate % Vent Mode Vent Rate /MIN Tidal Volume cc PEEP cmH2O Sodium (137-145) mmol/L Potassium (3.5-5.1) mmol/L Chloride (98-107) mmol/L Carbon Dioxide (22-30) mmol/L Anion Gap (5-15) MEQ/L BUN (9-20) mg/dL Creatinine (0.66-1.25) mg/dL Estimated GFR ML/MIN Glucose (74-106) mg/dL POC Glucometer 180 H 184 H (74 to 106) mg/dL Calcium (8.4-10.2) mg/dL Magnesium (1.6-2.3) mg/dL Total Bilirubin (0.2-1.3) mg/dL AST (17-59) U/L ALT (0-50) U/L Alkaline Phosphatase (38-126) U/L Troponin I (0.000-0.034) ng/mL NT-Pro-B Natriuret Pep (<300) pg/mL Serum Total Protein (6.3-8.2) g/dL Albumin (3.5-5.0) g/dL Procalcitonin (0.030-0.080) ng/mL Slides for Path Review Radiology Exams: Radiology Procedures Category Date Time Status CHEST 1 VIEW (PORTABLE) Stat Exams 05/21/22 19:30 Completed CHEST 1 VIEW (PORTABLE) Stat Exams 05/22/22 11:24 Completed CHEST 1 VIEW (PORTABLE) Urgent Exams 05/21/22 19:14 Completed Multi-Disciplinary Progress Notes: Multi-Disciplinary Progress Notes 05/22/22 10:42 Case Management Note by Hailey Banda WILL DEFER CM TODAY- PATIENT INTUBATED AND FULL CODE AT THIS TIME Initialized on 05/22/22 10:42 - END OF NOTE 05/22/22 09:41 Pharmacy Note by Marbin Raines PUT IN A DOSING REQUEST FOR LOVENOX, VERIFIED WITH LYLE THAT WE WERE USING A PROPHYLACTIC DOSE, CHOSE LOVENOX 40 MG DAILY, STOPPED PO ELIQUIS SINCE PATIENT IS NPO Initialized on 05/22/22 09:41 - END OF NOTE 05/22/22 09:04 Respiratory Note by Shaista Avery Spoke with Dr. Vaughan and decreased rate to 12 and also extended the phone to Lyle for changes in medication. [email or web address] Addendum entered by Shaista Avery 05/22/22 09:58: IOPA was called last night at 2215 05/21/22 and informed of intubation with per Sarai Sanchez. Initialized on 05/22/22 09:04 - END OF NOTE 05/21/22 14:01 Case Management Note by Hailey Banda PATIENT'S SON IS GREGORIO PEDRAZA (SP?) [phone] Initialized on 05/21/22 14:01 - END OF NOTE Assessment/Plan (1) Acute and chronic respiratory failure with hypoxia Current Visit: Yes Status: Resolved Assessment & Plan: Chief Complaint Diagnosis EXAC COPD, AMS Allergies Allergy/AdvReac Type Severity Reaction Status Date / Time Penicillins Allergy Severe Anaphylactic Verified 05/19/22 23:52 Reaction Vital Signs (Last 24 hours) Temp Pulse Resp BP BP BP BP 05/22/22 13:00 101 H 12 85/52 05/22/22 12:00 98.6 F 108 H 17 81/50 05/22/22 11:00 98.2 F 131 H 16 110/57 05/22/22 10:08 139 H 18 141/74 05/22/22 10:00 98.4 F 130 H 16 99/64 113/64 05/22/22 09:00 98.0 F 147 H 12 99/64 05/22/22 08:00 97.8 F 140 H 16 112/83 154/102 05/22/22 07:00 98.4 F 133 H 16 152/104 05/22/22 06:53 133 H 16 98/72 05/22/22 06:36 154 H 18 154/97 05/22/22 06:33 154 H 18 154/97 05/22/22 06:13 140 H 16 166/98 05/22/22 06:00 140 H 16 166/98 05/22/22 05:30 115 H 16 113/74 05/22/22 05:19 05/22/22 05:00 115 H 16 109/74 05/22/22 04:30 124 H 16 90/62 05/22/22 04:00 98.4 F 123 H 18 119/80 119/80 05/22/22 03:30 125 H 16 115/78 05/22/22 03:15 111 H 16 05/22/22 03:00 117 H 16 89/63 05/22/22 02:30 134 H 16 120/80 05/22/22 02:00 148 H 18 128/95 05/22/22 01:50 135 H 29 H 151/96 05/22/22 01:45 134 H 21 151/96 05/22/22 01:30 117 H 16 111/59 05/22/22 01:15 119 H 16 101/66 05/22/22 01:00 116 H 16 114/78 05/22/22 00:45 123 H 18 118/74 118/74 05/22/22 00:30 119 H 16 111/71 05/22/22 00:15 114 H 16 108/75 108/75 05/22/22 00:00 120 H 16 123/75 05/21/22 23:45 97.8 F 123 H 16 133/82 133/82 05/21/22 23:30 115 H 16 128/84 05/21/22 23:15 122 H 16 132/96 05/21/22 23:11 128 H 16 05/21/22 23:10 118 H 18 136/82 05/21/22 23:00 130 H 16 148/95 05/21/22 22:45 128 H 21 137/92 05/21/22 22:40 129 H 16 106/72 05/21/22 22:30 129 H 16 140/89 05/21/22 22:15 127 H 21 148/94 05/21/22 22:10 127 H 18 157/95 05/21/22 22:00 127 H 16 132/84 05/21/22 21:45 128 H 18 99/66 05/21/22 21:40 128 H 16 99/65 05/21/22 21:30 129 H 18 88/60 05/21/22 21:25 129 H 19 89/61 05/21/22 21:20 129 H 16 86/58 05/21/22 21:15 130 H 16 88/63 05/21/22 21:10 130 H 16 100/62 100/62 05/21/22 21:05 131 H 17 118/71 05/21/22 21:00 130 H 16 113/66 05/21/22 20:55 130 H 20 120/71 05/21/22 20:50 130 H 20 150/83 05/21/22 20:45 130 H 20 143/84 05/21/22 20:40 130 H 22 136/90 136/90 05/21/22 20:35 131 H 20 118/74 05/21/22 20:30 131 H 20 98/64 05/21/22 20:25 132 H 25 H 83/56 05/21/22 20:20 132 H 20 128/75 05/21/22 20:15 98 F 132 H 20 145/83 05/21/22 18:57 125 H 26 H 05/21/22 16:00 97.7 F 125 H 18 153/78 05/21/22 14:06 126 H 20 Pulse Ox 05/22/22 13:00 97 05/22/22 12:00 98 05/22/22 11:00 94 L 05/22/22 10:08 05/22/22 10:00 96 05/22/22 09:00 97 05/22/22 08:00 99 05/22/22 07:00 98 05/22/22 06:53 98 05/22/22 06:36 98 05/22/22 06:33 05/22/22 06:13 05/22/22 06:00 99 05/22/22 05:30 98 05/22/22 05:19 98 05/22/22 05:00 98 05/22/22 04:30 97 05/22/22 04:00 99 05/22/22 03:30 100 05/22/22 03:15 99 05/22/22 03:00 98 05/22/22 02:30 98 05/22/22 02:00 100 05/22/22 01:50 05/22/22 01:45 97 05/22/22 01:30 99 05/22/22 01:15 99 05/22/22 01:00 99 05/22/22 00:45 100 05/22/22 00:30 100 05/22/22 00:15 99 05/22/22 00:00 99 05/21/22 23:45 99 05/21/22 23:30 99 05/21/22 23:15 99 05/21/22 23:11 100 05/21/22 23:10 05/21/22 23:00 100 05/21/22 22:45 100 05/21/22 22:40 05/21/22 22:30 100 05/21/22 22:15 99 05/21/22 22:10 05/21/22 22:00 99 05/21/22 21:45 98 05/21/22 21:40 05/21/22 21:30 100 05/21/22 21:25 100 05/21/22 21:20 100 05/21/22 21:15 100 05/21/22 21:10 100 05/21/22 21:05 100 05/21/22 21:00 100 05/21/22 20:55 100 05/21/22 20:50 100 05/21/22 20:45 99 05/21/22 20:40 100 05/21/22 20:35 100 05/21/22 20:30 100 05/21/22 20:25 100 05/21/22 20:20 100 05/21/22 20:15 100 05/21/22 18:57 05/21/22 16:00 93 L 05/21/22 14:06 95 Home Medications Medication Instructions Recorded Confirmed Last Taken Type Amiodarone HCl 200 mg PO DAILY 05/20/22 05/20/22 Unknown History Current Medications Generic Name Dose Route Start Last Admin Trade Name Freq PRN Reason Stop Dose Admin Albuterol Sulfate 1 puff 05/20/22 12:22 Albuterol Common Canister Inhaler 06/19/22 12:21 Q4HPRN PRN SHORTNESS OF BREATH/WHEEZING Albuterol Sulfate 2.5 mg 05/20/22 12:22 05/21/22 13:57 Albuterol Sulfate 2.5 Mg/3 Ml Neb 06/19/22 12:21 2.5 mg Q4H PRN PRN Administration SHORTNESS OF BREATH/WHEEZING Albuterol/Ipratropium 3 ml 05/20/22 03:18 05/22/22 11:45 Ipratropium/Albuterol Sulfate 3 Ml Ampul.Neb IH 06/19/22 03:17 3 ml Q4HRT VERNA Administration Artificial Tears 1 gm 05/21/22 22:00 05/21/22 23:01 Lanolin/Min Oil/Petrolat Wht 3.5 Gm Tube OP 06/20/22 21:59 1 gm BID VERNA Administration Chlorhexidine Gluconate 15 ml 05/21/22 22:10 05/21/22 22:55 Chlorhexidine Gluconate 15 Ml Mouthwash MM 06/20/22 22:09 15 ml BID VERNA Administration Methylprednisolone Sodium 0 mg 05/20/22 06:00 05/22/22 06:12 Succinate 60 mg/ Sterile Water IV 06/19/22 05:59 60 mg 2 ml Q6HT VERNA Administration Diltiazem HCl 5 mg 05/20/22 17:00 05/22/22 04:17 Diltiazem Hcl Iv 5 Mg/Ml Vial IV 06/19/22 16:59 5 mg Q12H VERNA Administration Docusate Sodium 100 mg 05/20/22 12:22 Docusate Sodium 100 Mg Capsule PO 06/19/22 12:21 DAILY PRN PRN CONSTIPATION Enoxaparin Sodium 40 mg 05/22/22 10:00 05/22/22 11:16 Enoxaparin Sodium 40 Mg/0.4 Ml Syringe SQ 06/21/22 09:59 40 mg DAILY VERNA Administration Famotidine 20 mg 05/20/22 10:00 05/22/22 11:10 Famotidine 20 Mg/1 Vial IV 06/19/22 09:59 20 mg Q12HT VERNA Administration Furosemide 40 mg 05/20/22 10:00 05/21/22 18:22 Furosemide 40 Mg/4 Ml Vial IV 06/19/22 09:59 40 mg Q12H VERNA Administration Haloperidol Lactate 5 mg 05/21/22 12:17 05/21/22 12:25 Haloperidol Lactate 5 Mg/Ml Vial IV 06/20/22 12:16 5 mg Q8H PRN PRN Administration AGITATION Hydroxyzine HCl 25 mg 05/20/22 15:00 05/22/22 09:58 Hydroxyzine Hcl 25 Mg Tablet PO 06/19/22 14:59 Not Given TID VERNA Sodium Chloride 1,000 mls @ 0 mls/hr 05/20/22 03:18 05/22/22 12:58 Sodium Chloride 0.9% 1000 Ml IV 06/19/22 03:17 20 mls/hr .Q20H VERNA Administration KVO Propofol 100 mls @ 2.019 mls/hr 05/21/22 19:50 05/22/22 11:16 Propofol 1000 Mg/100 Ml Bottle IV 06/20/22 19:49 25 mcg/kg/min .Q24H PRN 10.095 mls/hr SEDATION FOR VENT Titration Protocol 5 MCG/KG/MIN Fentanyl Citrate 1,500 mcg/ 150 mls @ 6.7 mls/hr 05/22/22 09:00 05/22/22 09:50 Sodium Chloride IV 06/21/22 08:59 1 mcg/kg/hr .[id number] PRN 6.7 mls/hr PAIN Administration Protocol 1 MCG/KG/HR Amiodarone HCl/Dextrose 360 mg in 200 mls @ 33 mls/hr 05/22/22 10:45 05/22/22 11:19 Nexterone 360 Mg/200 Ml Bag IV 06/21/22 10:44 33 ml/hr .Q6H4M VERNA 33 mls/hr Administration Protocol Insulin Human Lispro 0 unit 05/20/22 09:51 Insulin Lispro 1 Unit SQ 06/19/22 09:50 UD PRN HYPERGLYCEMIA Lorazepam 2 mg 05/22/22 08:35 05/22/22 11:32 Lorazepam 2 Mg/1 Ml 2 Mg Vial IV 06/21/22 08:34 2 mg Q4HPRN PRN Administration AGITATION Metoprolol Tartrate 50 mg 05/20/22 14:00 05/22/22 10:10 Metoprolol Tartrate 50 Mg Tablet PO 06/19/22 13:59 Not Given DAILY VERNA Mupirocin 1 gm 05/22/22 10:00 05/22/22 12:09 Mupirocin 22 Gm Tube Ointment TP 06/20/22 22:14 1 gm BID VERNA Administration Olanzapine 5 mg 05/21/22 22:00 05/21/22 23:02 Olanzapine 5 Mg/Tab Orally Disintegrating PO 06/20/22 21:59 Not Given QHS [facility] Quetiapine Fumarate 50 mg 05/21/22 22:00 05/22/22 09:58 Quetiapine Fumarate 25 Mg Tablet PO 06/20/22 21:59 Not Given BID VERNA Discontinued Medications Generic Name Dose Route Start Last Admin Trade Name Freq PRN Reason Stop Dose Admin Albuterol/Ipratropium 3 ml 05/20/22 15:00 Ipratropium/Albuterol Sulfate 3 Ml Ampul.Neb IH 06/19/22 14:59 QIDRT VERNA Amiodarone HCl 200 mg 05/20/22 14:00 05/22/22 10:10 Amiodarone Hcl 200 Mg Tab PO 06/19/22 13:59 Not Given DAILY VERNA Apixaban 5 mg 05/20/22 14:00 05/21/22 22:55 Apixaban 2.5 Mg Tablet PO 06/19/22 13:59 5 mg BID VERNA Administration Aspirin 325 mg 05/20/22 23:58 Aspirin 325 Mg Tablet.Ec PO 05/20/22 23:59 STAT ONE Aspirin 324 mg 05/20/22 00:04 05/20/22 00:06 Aspirin 81 Mg Tab.Chew PO 05/20/22 00:05 324 mg STAT ONE Administration Aspirin Confirm 05/20/22 00:03 Aspirin 81 Mg Tab.Chew Administered 05/20/22 00:04 Dose 324 mg .ROUTE .STK-MED ONE Cisatracurium Besylate 10 mg 05/21/22 20:00 05/21/22 20:02 Cisatracurium 20 Mg/10 Ml Vial 0.15 mg/kg (10 mg) 05/21/22 20:01 10 mg IV Administration STAT STA Methylprednisolone Sodium 0 mg 05/19/22 23:48 05/20/22 00:00 Succinate 125 mg/ Sterile IV 05/19/22 23:49 125 mg Water 2 ml STAT ONE Administration Diltiazem HCl Confirm 05/21/22 06:26 Diltiazem Hcl Iv 5 Mg/Ml Vial Administered 05/21/22 06:27 Dose 50 mg IV .STK-MED ONE Doxycycline Hyclate Confirm 05/20/22 00:03 Doxycycline Hyclate 100 Mg/Vial Injection Administered 05/20/22 00:04 Dose 100 mg IV .STK-MED ONE Doxycycline Hyclate 100 mg 05/20/22 10:00 Doxycycline Hyclate 100 Mg Tablet PO 06/19/22 09:59 BID VERNA Sodium Chloride 1,000 mls @ 999 mls/hr 05/19/22 23:48 05/20/22 02:54 Sodium Chloride 0.9% 1000 Ml IV 05/20/22 00:48 Infused .Q1H1M STA Infusion Azithromycin 500 mg in 250 mls @ 250 mls/hr 05/19/22 23:48 05/20/22 00:01 Zithromax 500 Mg/ 250 Ml Nacl Premix IV 05/20/22 00:47 Not Given STAT STA Doxycycline Hyclate 100 mg/ 100 mls @ 100 mls/hr 05/20/22 10:00 05/20/22 00:12 Dextrose IV 06/19/22 09:59 100 mls/hr Q12HT VERNA Administration Azithromycin Confirm 05/19/22 23:59 Zithromax 500 Mg/ 250 Ml Nacl Premix Administered 05/20/22 00:00 Dose 500 mg in 250 mls @ ud IV .STK-MED ONE Sodium Chloride Confirm 05/19/22 23:59 Sodium Chloride 0.9% 1000 Ml Administered 05/20/22 00:00 Dose 1,000 mls @ ud .ROUTE .STK-MED ONE Dextrose Confirm 05/20/22 00:03 D5w 100ml Mini Bag 100 Ml Administered 05/20/22 00:04 Dose 100 mls @ ud IV .STK-MED ONE Potassium Chloride 100 mls @ 50 mls/hr 05/21/22 07:00 05/21/22 23:35 Potassium Chloride 20 Meq In Water 100ml IV 05/21/22 14:59 50 mls/hr Q2H VERNA Administration Cisatracurium Besylate 200 mg/ 200 mls @ 8.076 mls/hr 05/21/22 20:11 05/22/22 10:40 Dextrose IV 06/20/22 20:10 0 mcg/kg/min .Q24H PRN 0 mls/hr PARALYSIS Titration Protocol 2 MCG/KG/MIN Potassium Chloride Confirm 05/21/22 23:33 Potassium Chloride 20 Meq In Water 100ml Administered 05/21/22 23:34 Dose 100 mls @ ud IV .STK-MED ONE Fentanyl Citrate 1,500 mcg/ 150 mls @ ud 05/22/22 09:00 Sodium Chloride IV 05/22/22 09:01 .STK-MED ONE Sodium Chloride 1,000 mls @ 250 mls/hr 05/22/22 08:33 05/22/22 08:57 Sodium Chloride 0.9% 1000 Ml IV 05/22/22 12:32 250 mls/hr .Q4H STA Administration Sodium Chloride Confirm 05/22/22 09:21 Sodium Chloride 0.9% 1000 Ml Administered 05/22/22 09:22 Dose 1,000 mls @ ud .ROUTE .STK-MED ONE Sodium Chloride Confirm 05/22/22 09:25 Sodium Chloride 0.9% 500 Ml Administered 05/22/22 09:26 Dose 500 mls @ ud IV .STK-MED ONE Ketamine HCl 20 mg 05/21/22 19:50 05/21/22 19:51 Ketamine Hcl 50 Mg/Ml IV 05/21/22 19:51 20 mg STAT ONE Administration Ketamine HCl 20 mg 05/21/22 19:53 05/21/22 19:55 Ketamine Hcl 50 Mg/Ml IV 05/21/22 19:54 20 mg STAT ONE Administration Lorazepam 2 mg 05/20/22 01:29 05/20/22 02:24 Lorazepam 2 Mg/1 Ml 2 Mg Vial IV 05/20/22 01:30 2 mg STAT ONE Administration Lorazepam Confirm 05/20/22 02:20 Lorazepam 2 Mg/1 Ml 2 Mg Vial Administered 05/20/22 02:21 Dose 2 mg .ROUTE .STK-MED ONE Lorazepam 1 mg 05/20/22 07:40 05/21/22 13:01 Lorazepam 2 Mg/1 Ml 2 Mg Vial IV 06/19/22 07:39 1 mg Q6H PRN PRN Administration ANXIETY Methylprednisolone Sodium Succinate Confirm 05/19/22 23:59 Methylprednis Sod Succ 125 Mg/2 Ml Vial Administered 05/20/22 00:00 Dose 125 mg .ROUTE .STK-MED ONE Methylprednisolone Sodium Succinate Confirm 05/20/22 06:10 Methylprednis Sod Succ 125 Mg/2 Ml Vial Administered 05/20/22 06:11 Dose 125 mg .ROUTE .STK-MED ONE Methylprednisolone Sodium Succinate Confirm 05/21/22 17:14 Methylprednis Sod Succ 125 Mg/2 Ml Vial Administered 05/21/22 17:15 Dose 125 mg .ROUTE .STK-MED ONE Morphine Sulfate Confirm 05/21/22 19:10 Morphine Sulfate 2 Mg/Ml Inj Administered 05/21/22 19:11 Dose 2 mg .ROUTE .STK-MED ONE Morphine Sulfate 1 mg 05/21/22 19:13 05/21/22 19:14 Morphine Sulfate 2 Mg/Ml Inj IV 05/21/22 19:14 1 mg STAT ONE Administration Mupirocin 1 gm 05/21/22 22:15 05/21/22 22:28 Mupirocin 22 Gm Tube Ointment TP 06/20/22 22:14 1 gm UD VERNA Administration Non-Formulary Medication 1 each 05/22/22 09:23 05/22/22 11:42 Pharmacy Dosing Request 05/22/22 09:24 Not Given STAT ONE Olanzapine 10 mg 05/21/22 10:00 05/21/22 09:38 Olanzapine 5 Mg/Tab Orally Disintegrating PO 05/21/22 10:01 10 mg STAT ONE Administration Potassium Bicarbonate 25 meq 05/22/22 02:15 05/22/22 06:13 Potassium Bicarbonate 25 Meq Tab PO 05/22/22 06:16 25 meq Q2H VERNA Administration Propofol 100 mg 05/21/22 19:50 05/21/22 21:16 Propofol 10 Mg/Ml 20ml Vial 1.5 mg/kg (100 mg) 05/21/22 19:51 Not Given IV STAT STA Quetiapine Fumarate 50 mg 05/21/22 14:18 05/21/22 14:45 Quetiapine Fumarate 25 Mg Tablet PO 05/21/22 14:19 50 mg NOW ONE Administration Sterile Water Confirm 05/19/22 23:59 Water For Injection,Sterile 10 Ml Vial Administered 05/20/22 00:00 Dose 10 ml IJ .STK-MED ONE Sterile Water Confirm 05/20/22 06:10 Water For Injection,Sterile 10 Ml Vial Administered 05/20/22 06:11 Dose 10 ml IJ .STK-MED ONE Intake & Output (Last 24 hours) 05/20/22 05/21/22 05/22/22 05/23/22 11:59 11:59 11:59 11:59 Intake Total 0 0 1298 0 Output Total 3850 2100 Balance 0 -3850 -802 0 Weight 74.525 kg 67.3 kg 67 kg Laboratory Results (Last 24 hours) 05/22/22 05/22/22 05/22/22 12:28 05:49 05:29 WBC RBC Hgb Hct MCV MCH MCHC RDW Plt Count MPV Gran % Immature Gran % (Auto) Nucleat RBC Rel Count Eos # (Auto) Immature Gran # (Auto) Absolute Lymphs (auto) Absolute Monos (auto) Absolute Nucleated RBC Lymphocytes % Monocytes % Eosinophils % Basophils % Absolute Granulocytes Basophils # Puncture Site RIGHT RADIAL pCO2 45 pO2 87 Base Excess 14.4 H O2 Saturation 97 ABG pH 7.54 H ABG HCO3 38.5 H* ABG O2 Sat (Measured) 98.3 Clay Test YES A-a Gradient 142 a/A Ratio 0.38 Hemoglobin 10.3 Carboxyhemoglobin 0.9 Methemoglobin 0.6 L Temperature POC O2 Flow Rate 40 Vent Mode AC Vent Rate 16 Tidal Volume 600 PEEP 8 Sodium Potassium 3.9 Chloride Carbon Dioxide 39 H Anion Gap BUN Creatinine Estimated GFR Glucose POC Glucometer 184 H 180 H Calcium Magnesium Total Bilirubin AST ALT Alkaline Phosphatase Troponin I NT-Pro-B Natriuret Pep Serum Total Protein Albumin Procalcitonin Slides for Path Review 05/22/22 05/22/22 05/22/22 04:48 04:48 01:30 WBC 7.4 RBC 3.55 L Hgb 9.2 L Hct 29.1 L MCV 82.0 MCH 25.9 L MCHC 31.6 L RDW 15.9 H Plt Count 236 MPV 9.9 Gran % Immature Gran % (Auto) Nucleat RBC Rel Count Eos # (Auto) Immature Gran # (Auto) Absolute Lymphs (auto) Absolute Monos (auto) Absolute Nucleated RBC Lymphocytes % Monocytes % Eosinophils % Basophils % Absolute Granulocytes Basophils # Puncture Site pCO2 pO2 Base Excess O2 Saturation ABG pH ABG HCO3 ABG O2 Sat (Measured) Clay Test A-a Gradient a/A Ratio Hemoglobin Carboxyhemoglobin Methemoglobin Temperature POC O2 Flow Rate Vent Mode Vent Rate Tidal Volume PEEP Sodium 134 L Potassium 3.4 L 3.2 L Chloride 95 L Carbon Dioxide 38 H Anion Gap 4.2 L BUN 29 H Creatinine 0.85 Estimated GFR > 60.0 Glucose 174 H POC Glucometer Calcium 8.1 L Magnesium 2.2 Total Bilirubin 0.60 AST 95 H ALT 126 H Alkaline Phosphatase 105 Troponin I NT-Pro-B Natriuret Pep Serum Total Protein 6.6 Albumin 3.5 Procalcitonin Slides for Path Review 05/21/22 05/21/22 05/21/22 22:55 21:32 20:45 WBC RBC Hgb Hct MCV MCH MCHC RDW Plt Count MPV Gran % Immature Gran % (Auto) Nucleat RBC Rel Count Eos # (Auto) Immature Gran # (Auto) Absolute Lymphs (auto) Absolute Monos (auto) Absolute Nucleated RBC Lymphocytes % Monocytes % Eosinophils % Basophils % Absolute Granulocytes Basophils # Puncture Site LEFT BRACHIAL RIGHT BRACHIAL pCO2 48 H 48 H pO2 118 H 437 H* Base Excess 13.4 H 11.8 H O2 Saturation 97.1 98.4 ABG pH 7.51 H 7.49 H ABG HCO3 38.3 H* 36.6 H* ABG O2 Sat (Measured) 99.3 99.7 Clay Test NOT APPLICABLE NOT APPLICABLE A-a Gradient 179 216 a/A Ratio 0.40 0.67 Hemoglobin 13.4 10.4 Carboxyhemoglobin 1.2 0.7 Methemoglobin 1.0 L 0.6 L Temperature 37.0 37.0 POC O2 Flow Rate 50 100 Vent Mode AC AC Vent Rate 16 20 Tidal Volume 600 600 PEEP 8 8 Sodium Potassium 2.7 L* 3.0 L Chloride Carbon Dioxide Anion Gap BUN Creatinine Estimated GFR Glucose POC Glucometer 189 H Calcium Magnesium Total Bilirubin AST ALT Alkaline Phosphatase Troponin I NT-Pro-B Natriuret Pep Serum Total Protein Albumin Procalcitonin Slides for Path Review 05/21/22 05/21/22 05/21/22 20:25 18:25 18:25 WBC 8.6 RBC 3.72 L Hgb 10.0 L Hct 30.7 L MCV 82.5 MCH 26.9 MCHC 32.6 RDW 15.8 H Plt Count 236 MPV 9.4 Gran % 88.2 H Immature Gran % (Auto) 0.8 H Nucleat RBC Rel Count 0.0 Eos # (Auto) 0 Immature Gran # (Auto) 0.07 H Absolute Lymphs (auto) 0.45 L Absolute Monos (auto) 0.48 Absolute Nucleated RBC 0.00 Lymphocytes % 5.3 L Monocytes % 5.6 Eosinophils % 0.0 Basophils % 0.1 Absolute Granulocytes 7.54 H Basophils # 0.01 Puncture Site pCO2 pO2 Base Excess O2 Saturation ABG pH ABG HCO3 ABG O2 Sat (Measured) Clay Test A-a Gradient a/A Ratio Hemoglobin Carboxyhemoglobin Methemoglobin Temperature POC O2 Flow Rate Vent Mode Vent Rate Tidal Volume PEEP Sodium 136 L Potassium 3.3 L Chloride 96 L Carbon Dioxide 35 H Anion Gap 8.0 BUN 30 H Creatinine 1.02 Estimated GFR > 60.0 Glucose 180 H POC Glucometer Calcium 8.1 L Magnesium 2.2 Total Bilirubin 0.60 AST 120 H ALT 140 H Alkaline Phosphatase 120 Troponin I 0.165 H* NT-Pro-B Natriuret Pep 95911 Serum Total Protein 7.3 Albumin 3.9 Procalcitonin 0.366 H Slides for Path Review YES 05/21/22 05/21/22 16:27 13:16 WBC RBC Hgb Hct MCV MCH MCHC RDW Plt Count MPV Gran % Immature Gran % (Auto) Nucleat RBC Rel Count Eos # (Auto) Immature Gran # (Auto) Absolute Lymphs (auto) Absolute Monos (auto) Absolute Nucleated RBC Lymphocytes % Monocytes % Eosinophils % Basophils % Absolute Granulocytes Basophils # Puncture Site pCO2 pO2 Base Excess O2 Saturation ABG pH ABG HCO3 ABG O2 Sat (Measured) Clay Test A-a Gradient a/A Ratio Hemoglobin Carboxyhemoglobin Methemoglobin Temperature POC O2 Flow Rate Vent Mode Vent Rate Tidal Volume PEEP Sodium Potassium 2.9 L* Chloride Carbon Dioxide Anion Gap BUN Creatinine Estimated GFR Glucose POC Glucometer 174 H Calcium Magnesium Total Bilirubin AST ALT Alkaline Phosphatase Troponin I NT-Pro-B Natriuret Pep Serum Total Protein Albumin Procalcitonin Slides for Path Review Orders (Last 24 hours) Category Date Time Status Code Status Change Order ROUTINE Care 05/22/22 12:00 Active Intubation [Prepare for Endotracheal Intubation] STAT Care 05/21/22 20:05 Active NPO (ED) STAT Care 05/21/22 22:01 Active Oral Care Q2H Care 05/21/22 22:08 Active POCT Glucose Check Q6H Care 05/22/22 06:00 Active Consult Pulmonology ROUTINE Cons 05/21/22 19:05 Completed Chief Hydroelectric Station Operator/Discharge Plan ROUTINE Cons 05/22/22 08:00 Active CHEST 1 VIEW (PORTABLE) Stat Exams 05/21/22 19:30 Completed CHEST 1 VIEW (PORTABLE) Stat Exams 05/22/22 11:24 Completed CHEST 1 VIEW (PORTABLE) Urgent Exams 05/21/22 19:14 Completed ABG [ARTERIAL BLOOD GASES] DAILY Lab 05/22/22 05:29 Completed ABG [ARTERIAL BLOOD GASES] DAILY Lab 05/23/22 05:00 Ordered ABG [ARTERIAL BLOOD GASES] DAILY Lab 05/24/22 05:00 Ordered ABG [ARTERIAL BLOOD GASES] DAILY Lab 05/25/22 05:00 Ordered ABG [ARTERIAL BLOOD GASES] DAILY Lab 05/26/22 05:00 Ordered ABG [ARTERIAL BLOOD GASES] DAILY Lab 05/27/22 05:00 Ordered ABG [ARTERIAL BLOOD GASES] DAILY Lab 05/28/22 05:00 Ordered ABG [ARTERIAL BLOOD GASES] Routine Lab 05/21/22 20:45 Completed ABG [ARTERIAL BLOOD GASES] Routine Lab 05/21/22 22:55 Completed CBC AM.LAB Lab 05/22/22 04:48 Completed CBC AM.LAB Lab 05/23/22 04:00 Ordered CBC DAILY Lab 05/22/22 22:15 Ordered CBC DAILY Lab 05/23/22 22:15 Ordered CBC DAILY Lab 05/24/22 22:15 Ordered CBC DAILY Lab 05/25/22 22:15 Ordered CBC DAILY Lab 05/26/22 22:15 Ordered CBC DAILY Lab 05/27/22 22:15 Ordered CBC W DIFF Stat Lab 05/21/22 18:25 Completed CMP AM.LAB Lab 05/22/22 04:48 Completed CMP AM.LAB Lab 05/23/22 04:00 Ordered CMP Stat Lab 05/21/22 18:25 Completed CMP/HFII DAILY Lab 05/22/22 22:15 Ordered CMP/HFII DAILY Lab 05/23/22 22:15 Ordered CMP/HFII DAILY Lab 05/24/22 22:15 Ordered CMP/HFII DAILY Lab 05/25/22 22:15 Ordered CMP/HFII DAILY Lab 05/26/22 22:15 Ordered CMP/HFII DAILY Lab 05/27/22 22:15 Ordered MAGNESIUM Routine Lab 05/22/22 04:48 Completed MAGNESIUM Stat Lab 05/21/22 18:25 Completed NT PRO BNPII Stat Lab 05/21/22 18:25 Completed POCT GLUCOSE Stat Lab 05/21/22 16:27 Completed POCT GLUCOSE Stat Lab 05/21/22 21:32 Completed POCT GLUCOSE Stat Lab 05/22/22 05:49 Completed POCT GLUCOSE Stat Lab 05/22/22 12:28 Completed PROCALCITONIN Urgent Lab 05/21/22 20:25 Completed Potassium Q4H Lab 05/21/22 13:16 Completed Potassium Routine Lab 05/22/22 01:30 Completed TROPONIN Stat Lab 05/21/22 18:25 Completed Amiodarone in Dextrose,Iso-Osm [Nexterone 360 mg/200 ml Med 05/22/22 10:45 Active Bag] 360 mg in 200 ml IV 33 mls/hr Chlorhexidine Gluconate [Peridex] Med 05/21/22 22:10 Active 15 ml MM BID Cisatracurium 20 mg/10 ml [Nimbex 20MG/10 Ml Vial ( Med 05/21/22 20:00 Discontinued HIGH RISK MED)] 10 mg IV STAT STA D5w 250 ml [Dextrose 5%/Water IV Soln. 250 ML] 180 ml Med 05/21/22 20:11 Discontinued Cisatracurium 200 mg/20 ml [Nimbex 200MG/20 Ml MDV ( HIGH RISK MED)] 200 mg IV 2 mcg/kg/min Enoxaparin Sodium [Enoxaparin Sodium] Med 05/22/22 10:00 Active 40 mg SQ DAILY Fentanyl Citrate/Pf [Fentanyl 500 Mcg/10 ml Vial] 1,500 Med 05/22/22 09:00 Discontinued mcg NaCl 0.9% 150 ml [Sodium Chloride 0.9% 150 ML] 120 ml IV .STK-MED Ketamine HCl 50 mg/ml [Ketamine HCl 50 MG/ML] Med 05/21/22 19:50 Discontinued 20 mg IV STAT ONE Ketamine HCl 50 mg/ml [Ketamine HCl 50 MG/ML] Med 05/21/22 19:53 Discontinued 20 mg IV STAT ONE Lanolin/Min Oil/Petrolat Wht [Lubrifresh P.M. 3.5 gm Med 05/21/22 22:00 Active Ointment] 1 gm OP BID Lorazepam 2 mg/1 ml [Ativan 2 MG/1 ML VIAL] Med 05/22/22 08:35 Active 2 mg IV Q4HPRN PRN Methylprednis Sod Succ 125 mg* [solu-MEDROL] Med 05/21/22 17:14 Discontinued 125 mg .ROUTE .STK-MED ONE Morphine Sulfate 2 mg Inj Med 05/21/22 19:13 Discontinued 1 mg IV STAT ONE Morphine Sulfate 2 mg Inj Med 05/21/22 19:10 Discontinued 2 mg .ROUTE .STK-MED ONE Mupirocin [Bactroban OINTMENT] Med 05/22/22 10:00 Active 1 gm TP BID Mupirocin [Bactroban OINTMENT] Med 05/21/22 22:15 Discontinued 1 gm TP UD NaCl 0.9% 1000 ml [Sodium Chloride 0.9% 1000 ML] 1,000 Med 05/22/22 09:21 Discontinued ml .ROUTE UD NaCl 0.9% 1000 ml [Sodium Chloride 0.9% 1000 ML] 1,000 Med 05/22/22 08:33 Discontinued ml IV 250 mls/hr NaCl 0.9% 150 ml [Sodium Chloride 0.9% 150 ML] 120 ml Med 05/22/22 09:00 Active Fentanyl Citrate/Pf [Fentanyl 500 Mcg/10 ml Vial] 1,500 mcg IV 1 mcg/kg/hr NaCl 0.9% 500 ml [Sodium Chloride 0.9% 500 ML] 500 ml Med 05/22/22 09:25 Discontinued IV UD Olanzapine Odt 5 mg [Zyprexa Zydis 5 MG] Med 05/21/22 22:00 Active 5 mg PO QHS Pharmacy Dosing Request Med 05/22/22 09:23 Discontinued 1 each MC STAT ONE Potassium Bicarbonate [K-Lyte ] Med 05/22/22 02:15 Discontinued 25 meq PO Q2H Potassium Chloride 20Meq/100Ml [POTASSIUM CHLORIDE 20 Med 05/21/22 23:33 Discontinued mEq IN WATER 100ML] 100 ml IV UD Propofol 100Ml [Propofol 1000 mg/100 ml Bottle] 100 ml Med 05/21/22 19:50 Active IV 5 mcg/kg/min Propofol 200 mg/20 ml [Diprivan 200 mg/20 ml] Med 05/21/22 19:50 Discontinued 100 mg IV STAT STA Quetiapine Fumarate 25 mg [Seroquel 25 MG] Med 05/21/22 22:00 Active 50 mg PO BID Quetiapine Fumarate 25 mg [Seroquel 25 MG] Med 05/21/22 14:18 Discontinu ed 50 mg PO NOW ONE Intubate Patient STAT RT 05/21/22 21:59 Completed Ventilator Management Q4H RT 05/21/22 21:52 Active Patient Care Notes (Last 24 hours) 05/22/22 12:00 Nursing Note by Ysabel Martinez DR HERE ROUNDING ON PT. SPOKE WITH PT'S GILBERTOKINGA BY PHONE AND UPDATED ON SITUATION. CADEN TEAGUE, SAYS THAT SHE HAS TALKED TO PT'S SON WHO IS IN [place] AND THEIR WISH IS FOR PT TO PEACEFULLY. THEY DO NOT WANT ANY HEROIC MEASURES IT WILL ONLY PROLONG PT'S DEMISE. PT MADE SCO BY DR CHRISTENSEN AND CODE STATUS CHANGE ENTERED IN COMPUTER AT THIS TIME. Initialized on 05/22/22 12:00 - END OF NOTE 05/22/22 10:42 Case Management Note by Hailey Banda WILL DEFER CM TODAY- PATIENT INTUBATED AND FULL CODE AT THIS TIME Initialized on 05/22/22 10:42 - END OF NOTE 05/22/22 09:41 Pharmacy Note by Marbin Raines PUT IN A DOSING REQUEST FOR LOVENOX, VERIFIED WITH LYLE THAT WE WERE USING A PROPHYLACTIC DOSE, CHOSE LOVENOX 40 MG DAILY, STOPPED PO ELIQUIS SINCE PATIENT IS NPO Initialized on 05/22/22 09:41 - END OF NOTE 05/22/22 09:04 Respiratory Note by Shaista Avery Spoke with Dr. Vaughan and decreased rate to 12 and also extended the phone to Lyle for changes in medication. [email or web address] Addendum entered by Shaista Avery 05/22/22 09:58: IOPA was called last night at 2215 05/21/22 and informed of intubation with per Sarai Sanchez. Initialized on 05/22/22 09:04 - END OF NOTE 05/21/22 21:00 (created 05/22/22 06:53) Nursing Note by Batsheva Nettles At shift change, report received that staff had been in patient's all day attempting to keep his bipap on. Pt fighting staff continuously, combative, restless, and agitated. Multiple medications had been given throughout the day in an attempt to relax the patient but none of them were working. Dr. Sweeney at bedside and ordered Morphine 1 mg to be given in another attempt to calm the patient. Still no success. RT spoke with Dr. Sai Vaughan and he ordered for patient to be intubated. He attempted to give orders to the RT but she stated that was not something she was able to take. So he called back on the med surg phone and spoke with a nurse who was not his primary nurse. She took the orders for intubation including medications but she wanted the primary nurse to verify them and he became very upset that he had to speak to multiple people. The nurse then stated okay, let me just read these orders back to you and he became upset again and stated "to forget it and contact the ER physician". Pt was transferred to room 129 and a code rapid was called in order to have ER physician available. All appropriate staff arrived. Dr. Brandon spoke with Dr. Vaughan and they spoke about medications to give. Ketamine given to relax the patient and then appropri ate meds given for intubation. Pt intubated at 2004. See MAR for all other medications. Staff present: Naif Huang RN, Sai Nettles RN, clay house worker, Rosetta KOCHA, Dr. Brandon, Rosetta Hopson RN, Rosetta Sanchez RT, Jacob Coates RT, Mayela Garcia RN, Naif Becker RN, lab, radiology. Initialized on 05/22/22 06:53 - END OF NOTE 05/21/22 20:05 (created 05/22/22 00:58) Nursing Note by Keri Huang Upon taking over care of Pt, Multiple RNs in Pt room as Pt combative, thrashing in bed, continuously attempting to rip Bipap mask off, & yelling at staff. Dr. Sweeney arrived at bedside. Orders given. Hydro Station Supervisor consult placed & called immediately back with orders for intubation. Rapid Response called. See Rapid Response Paperwork. Pt transferred to ICU 129 & intubated with ER physician & Taylor Sweeney at bedside. Initialized on 05/22/22 00:58 - END OF NOTE 05/21/22 20:05 (created 05/21/22 21:52) Nursing Note by Sal,Keri Additional dose of Ketamine 0.4 mL IV drawn up during intubation period; however, not administered. Additional dose of Ketamine wasted & witnessed by Batsheva Nettles, RN. Initialized on 05/21/22 21:52 - END OF NOTE 05/21/22 20:05 (created 05/21/22 21:49) Nursing Note by Keri Huang 2nd dose of Nimbex 10 mg IV pulled up during intubation period but not administered. Dose has been wasted. Witnessed by Batsheva Nettles, RN. Initialized on 05/21/22 21:49 - END OF NOTE 05/21/22 18:55 Nursing Note by Ladonna Chung ABG's drawn by respiratory PH 7.48, CO2 47, PO2 64, HCO3 35, K 3.7 Initialized on 05/21/22 18:55 - END OF NOTE 05/21/22 18:52 Nursing Note by Ladonna Chung Dr. notified at 1700 that patient was being restless agitated and combative. Dr. Christensen requested that utilization start working on possible psych facility placement for patient. Hailey notified of the above. Initialized on 05/21/22 18:52 - END OF NOTE 05/21/22 18:45 Nursing Note by Roseann Eldridge here attempting to place patient on bi-pap. Initialized on 05/21/22 18:45 - END OF NOTE 05/21/22 18:38 Nursing Note by Roseann Eldridge RT here to draw ABG. Initialized on 05/21/22 18:38 - END OF NOTE 05/21/22 18:22 Nursing Note by Roseann Eldridge 1822 Lasix 40 mg IV given d/t patient has crackles and wheezes tono. Initialized on 05/21/22 18:22 - END OF NOTE 05/21/22 18:17 Nursing Note by Roseann Eldridge RT going to talk to HS about possible restraints d/t unable to care properly for patient d/t patient being aggressive, restless and uncooperative to staff. Initialized on 05/21/22 18:17 - END OF NOTE 05/21/22 17:59 Nursing Note by Roseann Eldridge RT here giving patient a breathing tx. RT states, she does here wheezes and crackles. Initialized on 05/21/22 17:59 - END OF NOTE 05/21/22 17:52 Nursing Note by Roseann Eldridge Patient uncooperative when trying to swabb mouth. Patient trying to hit staff who are trying to care for him. Initialized on 05/21/22 17:52 - END OF NOTE 05/21/22 17:49 Nursing Note by Roseann Eldridge 1740 RT notified of patients wheezing worse. RT states, she will come and look at him. Initialized on 05/21/22 17:49 - END OF NOTE 05/21/22 16:04 Nursing Note by Roseann Eldridge Mouth swabbed. Initialized on 05/21/22 16:04 - END OF NOTE 05/21/22 16:03 Nursing Note by Roseann Eldridge 1400 Mouth swabbed. Initialized on 05/21/22 16:03 - END OF NOTE 05/21/22 15:56 Nursing Note by Roseann Eldridge Patient remains agitated, uncooperative and restless. HS and RN's at bedside. Initialized on 05/21/22 15:56 - END OF NOTE 05/21/22 15:24 Nursing Note by Roseann Eldridge Called and talked with next of kin (daughter)Caden regarding Full Code/DNR. Daughter states, she has spoken to brother and that want to continue to keep patient a Full Code. Even know after talking with them about Dr. Christensen saying, he won't get any better and there is nothing else we can do for him. Daughter also, states, after talking to Hailey Banda they want to take him home on hospice. Information given to HS and Hailey Banda. Initialized on 05/21/22 15:24 - END OF NOTE 05/21/22 15:09 Nursing Note by Roseann Eldridge, RN initiated new IV site right upper arm 20g without difficulty. K+ infusion restarted at this time. Initialized on 05/21/22 15:09 - END OF NOTE 05/21/22 14:20 Nursing Note by Roseann Eldridge RT notified of patient needing breathing tx. Took four nurses to assist with tx. Patient combative, aggressive, uncooperative and restless. Lab phoned with critical K+. Dr. Christensen notified of patients critical lab. Told Dr. Christensen that he still has 3 bags left to infuse. Also, Dr. Christensen informed of patients behavior and he states, we can't given him anything else. Then, he ordered Seraquel 50mg now and then, Seraquel 50mg BID. Patient wanting to stand up. Patient IV has came out. Notified HS for another new IV to be started. Initialized on 05/21/22 14:20 - END OF NOTE 05/21/22 14:01 Case Management Note by Hailey Banda PATIENT'S SON IS GREGORIO PEDRAZA (SP?) [phone] Initialized on 05/21/22 14:01 - END OF NOTE Code(s): J96.21 - ACUTE AND CHRONIC RESPIRATORY FAILURE WITH HYPOXIA (2) Acute on chronic diastolic congestive heart failure, NYHA class 4 Current Visit: Yes Status: Acute Code(s): I50.33 - ACUTE ON CHRONIC DIASTOLIC (CONGESTIVE) HEART FAILURE (3) COPD exacerbation Current Visit: Yes Status: Acute Code(s): J44.1 - CHRONIC OBSTRUCTIVE PULMONARY DISEASE W (ACUTE) EXACERBATION (4) Alcoholic brain degeneration Current Visit: Yes Status: Acute Code(s): F10.20 - ALCOHOL DEPENDENCE, UNCOMPLICATED; G31.2 - DEGENERATION OF NERVOUS SYSTEM DUE TO ALCOHOL (5) Delirium due to multiple etiologies Current Visit: Yes Status: Acute Code(s): F05 - DELIRIUM DUE TO KNOWN PHYSIOLOGICAL CONDITION
[2022-05-23] MEDS: Sodium Chloride 0.9% 1000 ML 1,000 ML IV SCH ×2 (00:40→14:18)
[2022-05-23] MEDS: solu-MEDROL 60 MG, Sterile H2O 10 ml 2 ML IV SCH ×8 (00:40→17:58)
[2022-05-23] MEDS: NEXTERONE 360 MG/200 ML BAG 360 MG/200 ML PLAST..BAG IV SCH ×4 (00:41→20:22)
[2022-05-23] MEDS: DUONEB 0.5-3 MG/3 ml Neb IH SCH ×6 (03:08→22:28)
[2022-05-23 05:12] LABS: A-aADO2 135; ABG HEMOGLOBIN 9.6; ABG POTASSIUM 4.2 (3.5-5.1); ABG SITE ARTERIAL LINE; ARTERIAL BLD GAS O2 SATURATION 98.3 % (95-100); ARTERIAL BLD GAS TIDAL VOLUME 600 cc; ARTERIAL BLOOD GAS FIO2 40 %; ARTERIAL BLOOD GAS PCO2 43 mmHg (35-45); ARTERIAL BLOOD GAS PO2 96 mmHg (75-100); ARTERIAL BLOOD GAS VENT MODE A/C; ARTERIAL BLOOD GAS pH 7.53 (7.35-7.45); CARBOXYHEMOGLOBIN 2.7 % THgb (0.0-6.9); HCO3- 35.9 (22-28); HGB O2 SAT 94.7 g/dF (94-100); paO2 pAO1 0.42
[2022-05-23 05:13] LABS: ARTERIAL BLOOD GAS VENT RATE 12 /MIN
[2022-05-23 05:51] LABS: Hematocrit 28.9 % (42-50); Hemoglobin 8.9 g/dL (12.5-18.0); Mean Cell Volume 84.3 fL (78-100); Mean Corpuscular Hemoglobin 25.9 pg (26-32); Mean Corpuscular Hgb Concent. 30.8 g/dL (32-36); Mean Platelet Volume 10.3 fL (7.5-11.0); Platelet Count 209 x10^3/uL (150-450); Red Blood Count 3.43 x10^6/uL (4.1-5.6); Red Cell Distribution Width 16.6 % (11.5-14.0); White Blood Count 8.3 x10^3/uL (4.0-10.5)
[2022-05-23] MEDS: FENTANYL 500 MCG/10 ML VIAL 1,500 MCG in Sodium Chloride 0.9% 150 ML 120 ML IV PRN (05:52)
[2022-05-23 06:05] LABS: ALKALINE PHOSPHATASE 90 U/L (38-126); BLOOD UREA NITROGEN 30 mg/dL (9-20); CHLORIDE 100 mmol/L (98-107); Calcium 7.8 mg/dL (8.4-10.2); Carbon Dioxide 38 mmol/L (22-30); Direct Bilirubin 0.4 mg/dL (0.0-0.4); EST GLOMERULAR FILTRATION RATE > 60.0 ML/MIN; Glucose 168 mg/dL (74-106); Potassium 4.3 mmol/L (3.5-5.1); SGOT/AST 42 U/L (17-59); SGPT/ALT 90 U/L (0-50); SODIUM 139 mmol/L (137-145); Total Protein 5.7 g/dL (6.3-8.2)
[2022-05-23] MEDS: Propofol 1000 mg/100 ml Bottle 100 ML IV PRN ×2 (07:47→17:53)
--- NOTE | 2022-05-23 08:31 | CONS ---
CONSULT DATE: 05/22/2022 HISTORY: He is a 71-year-old male who has been admitted to [facility] with exacerbation of chronic obstructive pulmonary disease. During his course of hospital stay, the patient has continued to require BiPAP dependence and has exhibited symptoms of respiratory decompensation resulting in intubation on mechanical ventilator. The patient's known history is severe chronic obstructive pulmonary disease and chronic hypoxic respiratory failure with use of home oxygen. However, the patient is noncompliant with this. During his course of hospital stay, the patient was unable to tolerate BiPAP and exhibited signs of combativeness and agitation with intubation following to protect airway. REVIEW OF SYSTEMS: Unobtainable due to intubation on mechanical ventilator. PHYSICAL EXAMINATION: The patient is sedated, no acute distress. CVS: Hypotensive with a blood pressure 88/55. RESPIRATORY: Intubated, diminished, clear equal bilaterally. ABDOMEN: Soft. : Myles catheter in place. NEUROLOGIC: Intubated and sedated. SKIN: Warm, dry, intact. ASSESSMENT: 1) Acute on chronic hypoxic respiratory failure. 2) Chronic obstructive pulmonary disease, exacerbation. PLAN: Remain on mechanical ventilator with assist control, continue to rest for 24 hours, attempt to initiate weaning trial tomorrow. Propofol and Fentanyl infusion, will attempt to reduce sedation tomorrow with trial. Arterial blood gases reviewed with all gases stable. Chest x-ray reviewed with findings stable at this time. The patient remains hypotensive with blood pressure 88/55, continue normal saline at 75 continuous, will initiate Levophed if persists. Creatinine 0.85, GFR greater than 60. No edema or volume overload at this time. Once the patient awakens, he will require education on nicotine cessation. Once the patient is medically stable and ready to be discharged, will need re-education on continued use of home oxygen in order to maintain optimal oxygen saturation. Dr. Morgan Vaughan will assess the patient tomorrow with further orders. As dictated by OSCAR Escobedo.
--- NOTE | 2022-05-23 08:37 | XRAY ---
Indication: Patient on ventilator. Comparison: One day earlier. Portable chest demonstrates slight worsening diffuse bilateral hazy airspace disease without consolidation/large effusion. Heart not enlarged. Endotracheal tube tip now 6 cm above brian. Stable orogastric tube tip in stomach.
[2022-05-23] MEDS: Lubrifresh P.M. 3.5 gm Ointment OP SCH ×2 (10:19→21:03)
[2022-05-23] MEDS: Bactroban OINTMENT TP SCH ×2 (10:19→21:03)
[2022-05-23] MEDS: ENOXAPARIN SODIUM SQ SCH (10:19)
[2022-05-23] MEDS: Pepcid 20 MG VIAL IV SCH ×2 (10:20→21:03)
[2022-05-23] MEDS: PERIDEX MM SCH ×2 (10:20→21:04)
[2022-05-23] MEDS: Ativan 2 MG/1 ML VIAL IV PRN (10:30)
[2022-05-23] MEDS ORDERED: Levofloxacin 500MG/100ML D5W 500 MG/100 ML BAG IV SCH (20:00)
--- NOTE | 2022-05-23 20:24 | PCM.NOTE ---
Date and Time: 05/23/222021 Subjective Assessment: Patient intubated. doing ok - Review of Systems All Other Systems: Unable due to condition Objective Exam General Appearance: mild distress Skin Exam: normal color Eye Exam: EOM palsy/anisocoria Ears, Nose, Throat Exam: normal ENT inspection Neck Exam: normal inspection Respiratory Exam: wheezing, other (on ventilator) Cardiovascular Exam: irregular Gastrointestinal/Abdomen Exam: soft Extremity Exam: normal inspection Back Exam: normal inspection OBJECTIVE DATA Vital Signs: Vital Signs - 24 hr Temp Pulse Resp BP Pulse Ox 05/23/22 20:00 97.5 F 102 H 16 112/65 97 05/23/22 19:44 96 H 05/23/22 19:00 96 H 12 107/62 97 05/23/22 18:48 96 H 22 98 05/23/22 18:00 102 H 12 112/66 97 05/23/22 17:00 98 H 12 111/65 97 05/23/22 16:00 98.4 F 99 H 12 107/61 96 05/23/22 15:41 100 H 12 96 05/23/22 15:00 98 H 12 107/64 97 05/23/22 14:00 96 H 12 105/61 96 05/23/22 13:00 104 H 12 108/64 97 05/23/22 12:00 98.6 F 101 H 12 107/64 97 05/23/22 11:35 120 H 12 98 05/23/22 11:00 101 H 14 108/63 96 05/23/22 10:00 95 H 14 110/64 97 05/23/22 09:00 101 H 15 112/67 97 05/23/22 08:00 98.4 F 95 H 14 108/64 96 05/23/22 07:34 106 H 12 96 05/23/22 07:00 98 H 16 107/64 98 05/23/22 06:00 94 H 12 112/66 97 05/23/22 05:00 96 H 14 104/61 98 05/23/22 04:14 94 H 05/23/22 04:00 97.8 F 93 H 12 100/58 96 05/23/22 03:08 96 H 12 98 05/23/22 03:00 96 H 12 107/65 99 05/23/22 02:00 93 H 12 104/61 98 05/23/22 01:00 94 H 12 101/60 97 05/23/22 00:00 97.5 F 89 12 99/60 95 05/22/22 23:00 94 H 12 91/55 96 05/22/22 22:32 97 H 12 97 05/22/22 22:00 100 H 12 95/57 97 05/22/22 21:00 89 12 95/56 97 05/22/22 20:28 99 H Pain Assessment - Last Documented Pain Intensity 0 Intake and Output: Intake & Output 05/21/22 05/22/22 05/23/22 05/24/22 11:59 11:59 11:59 11:59 Intake Total 0 1298 3286 1292 Output Total 3850 2100 1225 550 Balance -3850 -802 2061 742 Weight 67.3 kg 67 kg 69 kg Lab Results: Lab Results-Last 24 Hours 05/23/22 05/23/22 05/23/22 Range/Units 05:00 05:00 05:02 WBC 8.3 (4.0-10.5) x10^3/uL RBC 3.43 L (4.1-5.6) x10^6/uL Hgb 8.9 L (12.5-18.0) g/dL Hct 28.9 L (42-50) % MCV 84.3 (78-100) fL MCH 25.9 L (26-32) pg MCHC 30.8 L (32-36) g/dL RDW 16.6 H (11.5-14.0) % Plt Count 209 (150-450) x10^3/uL MPV 10.3 (7.5-11.0) fL Puncture Site ARTERIAL LINE pCO2 43 (35-45) mmHg pO2 96 (75-100) mmHg Base Excess 12.0 H (-2.0-2.0) O2 Saturation 94.7 (94-100) g/dF ABG pH 7.53 H (7.35-7.45) ABG HCO3 35.9 H* (22-28) ABG O2 Sat (Measured) 98.3 (95-100) % Clay Test NOT APPLICABLE A-a Gradient 135 a/A Ratio 0.42 Hemoglobin 9.6 Carboxyhemoglobin 2.7 (0.0-6.9) % THgb Methemoglobin 1.0 L (1.4-1.5) % Temperature 37.0 C POC O2 Flow Rate 40 % Vent Mode A/C Vent Rate 12 /MIN Tidal Volume 600 cc PEEP 8.0 cmH2O Sodium 139 (137-145) mmol/L Potassium 4.3 D 4.2 (3.5-5.1) mmol/L Chloride 100 (98-107) mmol/L Carbon Dioxide 38 H (22-30) mmol/L Anion Gap 5.0 (5-15) MEQ/L BUN 30 H (9-20) mg/dL Creatinine 0.80 (0.66-1.25) mg/dL Estimated GFR > 60.0 ML/MIN Glucose 168 H (74-106) mg/dL Calcium 7.8 L (8.4-10.2) mg/dL Total Bilirubin 0.50 (0.2-1.3) mg/dL Direct Bilirubin 0.4 (0.0-0.4) mg/dL AST 42 (17-59) U/L ALT 90 H (0-50) U/L Alkaline Phosphatase 90 (38-126) U/L Serum Total Protein 5.7 L (6.3-8.2) g/dL Albumin 3.0 L (3.5-5.0) g/dL Radiology Exams: Radiology Procedures Category Date Time Status CHEST 1 VIEW (PORTABLE) DAILY Exams 05/23/22 08:00 Completed CHEST 1 VIEW (PORTABLE) DAILY Exams 05/24/22 08:00 Ordered CHEST 1 VIEW (PORTABLE) DAILY Exams 05/25/22 08:00 Ordered CHEST 1 VIEW (PORTABLE) DAILY Exams 05/26/22 08:00 Ordered CHEST 1 VIEW (PORTABLE) Stat Exams 05/21/22 19:30 Completed CHEST 1 VIEW (PORTABLE) Stat Exams 05/22/22 11:24 Completed Assessment/Plan (1) Acute and chronic respiratory failure with hypoxia Current Visit: Yes Status: Resolved Assessment & Plan: Chief Complaint Diagnosis EXAC COPD, AMS Allergies Allergy/AdvReac Type Severity Reaction Status Date / Time Penicillins Allergy Severe Anaphylactic Verified 05/19/22 23:52 Reaction Vital Signs (Last 24 hours) Temp Pulse Resp BP Pulse Ox 05/23/22 20:00 97.5 F 102 H 16 112/65 97 05/23/22 19:44 96 H 05/23/22 19:00 96 H 12 107/62 97 05/23/22 18:48 96 H 22 98 05/23/22 18:00 102 H 12 112/66 97 05/23/22 17:00 98 H 12 111/65 97 05/23/22 16:00 98.4 F 99 H 12 107/61 96 05/23/22 15:41 100 H 12 96 05/23/22 15:00 98 H 12 107/64 97 05/23/22 14:00 96 H 12 105/61 96 05/23/22 13:00 104 H 12 108/64 97 05/23/22 12:00 98.6 F 101 H 12 107/64 97 05/23/22 11:35 120 H 12 98 05/23/22 11:00 101 H 14 108/63 96 05/23/22 10:00 95 H 14 110/64 97 05/23/22 09:00 101 H 15 112/67 97 05/23/22 08:00 98.4 F 95 H 14 108/64 96 05/23/22 07:34 106 H 12 96 05/23/22 07:00 98 H 16 107/64 98 05/23/22 06:00 94 H 12 112/66 97 05/23/22 05:00 96 H 14 104/61 98 05/23/22 04:14 94 H 05/23/22 04:00 97.8 F 93 H 12 100/58 96 05/23/22 03:08 96 H 12 98 05/23/22 03:00 96 H 12 107/65 99 05/23/22 02:00 93 H 12 104/61 98 05/23/22 01:00 94 H 12 101/60 97 05/23/22 00:00 97.5 F 89 12 99/60 95 05/22/22 23:00 94 H 12 91/55 96 05/22/22 22:32 97 H 12 97 05/22/22 22:00 100 H 12 95/57 97 05/22/22 21:00 89 12 95/56 97 05/22/22 20:28 99 H Home Medications Medication Instructions Recorded Confirmed Last Taken Type Amiodarone HCl 200 mg PO DAILY 05/20/22 05/20/22 Unknown History Current Medications Generic Name Dose Route Start Last Admin Trade Name Rika PRN Reason Stop Dose Admin Albuterol Sulfate 1 puff 05/20/22 12:22 Albuterol Common Canister Inhaler 06/19/22 12:21 Q4HPRN PRN SHORTNESS OF BREATH/WHEEZING Albuterol Sulfate 2.5 mg 05/20/22 12:22 05/21/22 13:57 Albuterol Sulfate 2.5 Mg/3 Ml Neb 06/19/22 12:21 2.5 mg Q4H PRN PRN Administration SHORTNESS OF BREATH/WHEEZING Albuterol/Ipratropium 3 ml 05/20/22 03:18 05/23/22 18:48 Ipratropium/Albuterol Sulfate 3 Ml Ampul.Neb 06/19/22 03:17 3 ml Q4HRT VERNA Administration Artificial Tears 1 gm 05/21/22 22:00 05/23/22 10:19 Lanolin/Min Oil/Petrolat Wht 3.5 Gm Tube OP 06/20/22 21:59 1 gm BID VERNA Administration Chlorhexidine Gluconate 15 ml 05/21/22 22:10 05/23/22 10:20 Chlorhexidine Gluconate 15 Ml Mouthwash MM 06/20/22 22:09 15 ml BID VERNA Administration Methylprednisolone Sodium 0 mg 05/20/22 06:00 05/23/22 17:58 Succinate 60 mg/ Sterile Water IV 06/19/22 05:59 60 mg 2 ml Q6HT VERNA Administration Docusate Sodium 100 mg 05/20/22 12:22 Docusate Sodium 100 Mg Capsule PO 06/19/22 12:21 DAILY PRN PRN CONSTIPATION Enoxaparin Sodium 40 mg 05/22/22 10:00 05/23/22 10:19 Enoxaparin Sodium 40 Mg/0.4 Ml Syringe SQ 06/21/22 09:59 40 mg DAILY VERNA Administration Famotidine 20 mg 05/20/22 10:00 05/23/22 10:20 Famotidine 20 Mg/1 Vial IV 06/19/22 09:59 20 mg Q12HT VERNA Administration Haloperidol Lactate 5 mg 05/21/22 12:17 05/21/22 12:25 Haloperidol Lactate 5 Mg/Ml Vial IV 06/20/22 12:16 5 mg Q8H PRN PRN Administration AGITATION Haloperidol Lactate 5 mg 05/24/22 07:00 Haloperidol Lactate 5 Mg/Ml Vial IV 05/24/22 07:01 ONCE ONE Sodium Chloride 1,000 mls @ 75 mls/hr 05/20/22 03:18 05/23/22 14:18 Sodium Chloride 0.9% 1000 Ml IV 06/19/22 03:17 75 mls/hr .[id number] VERNA Administration Propofol 100 mls @ 2.019 mls/hr 05/21/22 19:50 05/23/22 20:23 Propofol 1000 Mg/100 Ml Bottle IV 06/20/22 19:49 30 mcg/kg/min .Q24H PRN 12.114 mls/hr SEDATION FOR VENT Titration Protocol 5 MCG/KG/MIN Fentanyl Citrate 1,500 mcg/ 150 mls @ 6.7 mls/hr 05/22/22 09:00 05/23/22 20:00 Sodium Chloride IV 06/21/22 08:59 1 mcg/kg/hr .[id number] PRN 6.7 mls/hr PAIN Titration Protocol 1 MCG/KG/HR Amiodarone HCl/Dextrose 360 mg in 200 mls @ 17 mls/hr 05/23/22 08:15 05/23/22 20:22 Nexterone 360 Mg/200 Ml Bag IV 06/22/22 08:14 Not Given .[id number] VERNA Protocol Levofloxacin/Dextrose 500 mg in 100 mls @ 100 mls/hr 05/23/22 20:00 05/23/22 19:37 Levofloxacin 500mg/100ml D5w IV 06/22/22 19:59 100 mls/hr Q24H10 VERNA Administration Insulin Human Lispro 0 unit 05/20/22 09:51 Insulin Lispro 1 Unit SQ 06/19/22 09:50 UD PRN HYPERGLYCEMIA Lorazepam 2 mg 05/22/22 08:35 05/23/22 10:30 Lorazepam 2 Mg/1 Ml 2 Mg Vial IV 06/21/22 08:34 2 mg Q4HPRN PRN Administration AGITATION Mupirocin 1 gm 05/22/22 10:00 05/23/22 10:19 Mupirocin 22 Gm Tube Ointment TP 06/20/22 22:14 1 gm BID VERNA Administration Discontinued Medications Generic Name Dose Route Start Last Admin Trade Name Freq PRN Reason Stop Dose Admin Albuterol/Ipratropium 3 ml 02/12/23 15:00 Ipratropium/Albuterol Sulfate 3 Ml Ampul.Neb IH 06/19/22 14:59 QIDRT [facility] Amiodarone HCl 200 mg 05/20/22 14:00 05/22/22 10:10 Amiodarone Hcl 200 Mg Tab PO 06/19/22 13:59 Not Given DAILY VERNA Apixaban 5 mg 05/20/22 14:00 05/21/22 22:55 Apixaban 2.5 Mg Tablet PO 06/19/22 13:59 5 mg BID VERNA Administration Aspirin 325 mg 05/20/22 23:58 Aspirin 325 Mg Tablet.Ec PO 05/20/22 23:59 STAT ONE Aspirin 324 mg 05/20/22 00:04 05/20/22 00:06 Aspirin 81 Mg Tab.Chew PO 05/20/22 00:05 324 mg STAT ONE Administration Aspirin Confirm 05/20/22 00:03 Aspirin 81 Mg Tab.Chew Administered 05/20/22 00:04 Dose 324 mg .ROUTE .STK-MED ONE Cisatracurium Besylate 10 mg 05/21/22 20:00 05/21/22 20:02 Cisatracurium 20 Mg/10 Ml Vial 0.15 mg/kg (10 mg) 05/21/22 20:01 10 mg IV Administration STAT STA Methylprednisolone Sodium 0 mg 05/19/22 23:48 05/20/22 00:00 Succinate 125 mg/ Sterile IV 05/19/22 23:49 125 mg Water 2 ml STAT ONE Administration Diltiazem HCl 5 mg 05/20/22 17:00 05/22/22 21:38 Diltiazem Hcl Iv 5 Mg/Ml Vial IV 06/19/22 16:59 Not Given Q12H [facility] Diltiazem HCl Confirm 05/21/22 06:26 Diltiazem Hcl Iv 5 Mg/Ml Vial Administered 05/21/22 06:27 Dose 50 mg IV .STK-MED ONE Doxycycline Hyclate Confirm 05/20/22 00:03 Doxycycline Hyclate 100 Mg/Vial Injection Administered 05/20/22 00:04 Dose 100 mg IV .STK-MED ONE Doxycycline Hyclate 100 mg 05/20/22 10:00 Doxycycline Hyclate 100 Mg Tablet PO 06/19/22 09:59 BID VERNA Furosemide 40 mg 05/20/22 10:00 05/22/22 13:48 Furosemide 40 Mg/4 Ml Vial IV 06/19/22 09:59 Not Given Q12H VERNA Hydroxyzine HCl 25 mg 05/20/22 15:00 05/22/22 17:18 Hydroxyzine Hcl 25 Mg Tablet PO 06/19/22 14:59 Not Given TID VERNA Sodium Chloride 1,000 mls @ 999 mls/hr 05/19/22 23:48 05/20/22 02:54 Sodium Chloride 0.9% 1000 Ml IV 05/20/22 00:48 Infused .Q1H1M STA Infusion Azithromycin 500 mg in 250 mls @ 250 mls/hr 05/19/22 23:48 05/20/22 00:01 Zithromax 500 Mg/ 250 Ml Nacl Premix IV 05/20/22 00:47 Not Given STAT STA Doxycycline Hyclate 100 mg/ 100 mls @ 100 mls/hr 05/20/22 10:00 05/20/22 00:12 Dextrose IV 06/19/22 09:59 100 mls/hr Q12HT VERNA Administration Azithromycin Confirm 05/19/22 23:59 Zithromax 500 Mg/ 250 Ml Nacl Premix Administered 05/20/22 00:00 Dose 500 mg in 250 mls @ ud IV .STK-MED ONE Sodium Chloride Confirm 05/19/22 23:59 Sodium Chloride 0.9% 1000 Ml Administered 05/20/22 00:00 Dose 1,000 mls @ ud .ROUTE .STK-MED ONE Dextrose Confirm 05/20/22 00:03 D5w 100ml Mini Bag 100 Ml Administered 05/20/22 00:04 Dose 100 mls @ ud IV .STK-MED ONE Potassium Chloride 100 mls @ 50 mls/hr 05/21/22 07:00 05/21/22 23:35 Potassium Chloride 20 Meq In Water 100ml IV 05/21/22 14:59 50 mls/hr Q2H VERNA Administration Cisatracurium Besylate 200 mg/ 200 mls @ 8.076 mls/hr 05/21/22 20:11 05/22/22 10:40 Dextrose IV 06/20/22 20:10 0 mcg/kg/min .Q24H PRN 0 mls/hr PARALYSIS Titration Protocol 2 MCG/KG/MIN Potassium Chloride Confirm 05/21/22 23:33 Potassium Chloride 20 Meq In Water 100ml Administered 05/21/22 23:34 Dose 100 mls @ ud IV .STK-MED ONE Fentanyl Citrate 1,500 mcg/ 150 mls @ ud 05/22/22 09:00 Sodium Chloride IV 05/22/22 09:01 .STK-MED ONE Sodium Chloride 1,000 mls @ 250 mls/hr 05/22/22 08:33 05/22/22 08:57 Sodium Chloride 0.9% 1000 Ml IV 05/22/22 12:32 250 mls/hr .Q4H STA Administration Sodium Chloride Confirm 05/22/22 09:21 Sodium Chloride 0.9% 1000 Ml Administered 05/22/22 09:22 Dose 1,000 mls @ ud .ROUTE .STK-MED ONE Sodium Chloride Confirm 05/22/22 09:25 Sodium Chloride 0.9% 500 Ml Administered 05/22/22 09:26 Dose 500 mls @ ud IV .STK-MED ONE Amiodarone HCl/Dextrose 360 mg in 200 mls @ 33 mls/hr 05/22/22 10:45 05/23/22 05:56 Nexterone 360 Mg/200 Ml Bag IV 06/21/22 10:44 Not Given .Q6H4M [facility] Protocol Ketamine HCl 20 mg 05/21/22 19:50 05/21/22 19:51 Ketamine Hcl 50 Mg/Ml IV 05/21/22 19:51 20 mg STAT ONE Administration Ketamine HCl 20 mg 05/21/22 19:53 05/21/22 19:55 Ketamine Hcl 50 Mg/Ml IV 05/21/22 19:54 20 mg STAT ONE Administration Lorazepam 2 mg 05/20/22 01:29 05/20/22 02:24 Lorazepam 2 Mg/1 Ml 2 Mg Vial IV 05/20/22 01:30 2 mg STAT ONE Administration Lorazepam Confirm 05/20/22 02:20 Lorazepam 2 Mg/1 Ml 2 Mg Vial Administered 05/20/22 02:21 Dose 2 mg .ROUTE .STK-MED ONE Lorazepam 1 mg 05/20/22 07:40 05/21/22 13:01 Lorazepam 2 Mg/1 Ml 2 Mg Vial IV 06/19/22 07:39 1 mg Q6H PRN PRN Administration ANXIETY Methylprednisolone Sodium Succinate Confirm 05/19/22 23:59 Methylprednis Sod Succ 125 Mg/2 Ml Vial Administered 05/20/22 00:00 Dose 125 mg .ROUTE .STK-MED ONE Methylprednisolone Sodium Succinate Confirm 05/20/22 06:10 Methylprednis Sod Succ 125 Mg/2 Ml Vial Administered 05/20/22 06:11 Dose 125 mg .ROUTE .STK-MED ONE Methylprednisolone Sodium Succinate Confirm 05/21/22 17:14 Methylprednis Sod Succ 125 Mg/2 Ml Vial Administered 05/21/22 17:15 Dose 125 mg .ROUTE .STK-MED ONE Metoprolol Tartrate 50 mg 05/20/22 14:00 05/22/22 10:10 Metoprolol Tartrate 50 Mg Tablet PO 06/19/22 13:59 Not Given DAILY VERNA Morphine Sulfate Confirm 05/21/22 19:10 Morphine Sulfate 2 Mg/Ml Inj Administered 05/21/22 19:11 Dose 2 mg .ROUTE .STK-MED ONE Morphine Sulfate 1 mg 05/21/22 19:13 05/21/22 19:14 Morphine Sulfate 2 Mg/Ml Inj IV 05/21/22 19:14 1 mg STAT ONE Administration Mupirocin 1 gm 05/21/22 22:15 05/21/22 22:28 Mupirocin 22 Gm Tube Ointment TP 06/20/22 22:14 1 gm UD VERNA Administration Non-Formulary Medication 1 each 05/22/22 09:23 05/22/22 11:42 Pharmacy Dosing Request 05/22/22 09:24 Not Given STAT ONE Olanzapine 10 mg 05/21/22 10:00 05/21/22 09:38 Olanzapine 5 Mg/Tab Orally Disintegrating PO 05/21/22 10:01 10 mg STAT ONE Administration Olanzapine 5 mg 05/21/22 22:00 05/21/22 23:02 Olanzapine 5 Mg/Tab Orally Disintegrating PO 06/20/22 21:59 Not Given QHS VERNA Potassium Bicarbonate 25 meq 05/22/22 02:15 05/22/22 06:13 Potassium Bicarbonate 25 Meq Tab PO 05/22/22 06:16 25 meq Q2H VERNA Administration Propofol 100 mg 05/21/22 19:50 05/21/22 21:16 Propofol 10 Mg/Ml 20ml Vial 1.5 mg/kg (100 mg) 05/21/22 19:51 Not Given IV STAT STA Quetiapine Fumarate 50 mg 05/21/22 14:18 05/21/22 14:45 Quetiapine Fumarate 25 Mg Tablet PO 05/21/22 14:19 50 mg NOW ONE Administration Quetiapine Fumarate 50 mg 05/21/22 22:00 05/22/22 09:58 Quetiapine Fumarate 25 Mg Tablet PO 06/20/22 21:59 Not Given BID VERNA Sterile Water Confirm 05/19/22 23:59 Water For Injection,Sterile 10 Ml Vial Administered 05/20/22 00:00 Dose 10 ml IJ .STK-MED ONE Sterile Water Confirm 05/20/22 06:10 Water For Injection,Sterile 10 Ml Vial Administered 05/20/22 06:11 Dose 10 ml IJ .STK-MED ONE Intake & Output (Last 24 hours) 05/21/22 05/22/22 05/23/22 05/24/22 11:59 11:59 11:59 11:59 Intake Total 0 1298 3286 1292 Output Total 3850 2100 1225 550 Balance -3850 -802 2061 742 Weight 67.3 kg 67 kg 69 kg Microbiology Results (Last 24 hours) 05/23/22 17:36 Sputum - Expectorant Gram Stain - Pending 05/23/22 17:36 Sputum - Expectorant Sputum Culture - Pending Laboratory Results (Last 24 hours) 05/23/22 05/23/22 05/23/22 05:02 05:00 05:00 WBC 8.3 RBC 3.43 L Hgb 8.9 L Hct 28.9 L MCV 84.3 MCH 25.9 L MCHC 30.8 L RDW 16.6 H Plt Count 209 MPV 10.3 Puncture Site ARTERIAL LINE pCO2 43 pO2 96 Base Excess 12.0 H O2 Saturation 94.7 ABG pH 7.53 H ABG HCO3 35.9 H* ABG O2 Sat (Measured) 98.3 Clay Test NOT APPLICABLE A-a Gradient 135 a/A Ratio 0.42 Hemoglobin 9.6 Carboxyhemoglobin 2.7 Methemoglobin 1.0 L Temperature 37.0 POC O2 Flow Rate 40 Vent Mode A/C Vent Rate 12 Tidal Volume 600 PEEP 8.0 Sodium 139 Potassium 4.2 4.3 D Chloride 100 Carbon Dioxide 38 H Anion Gap 5.0 BUN 30 H Creatinine 0.80 Estimated GFR > 60.0 Glucose 168 H Calcium 7.8 L Total Bilirubin 0.50 Direct Bilirubin 0.4 AST 42 ALT 90 H Alkaline Phosphatase 90 Serum Total Protein 5.7 L Albumin 3.0 L Orders (Last 24 hours) Category Date Time Status CHEST 1 VIEW (PORTABLE) DAILY Exams 05/23/22 08:00 Completed CHEST 1 VIEW (PORTABLE) DAILY Exams 05/24/22 08:00 Ordered CHEST 1 VIEW (PORTABLE) DAILY Exams 05/25/22 08:00 Ordered CHEST 1 VIEW (PORTABLE) DAILY Exams 05/26/22 08:00 Ordered ABG [ARTERIAL BLOOD GASES] DAILY Lab 05/23/22 05:02 Completed ABG [ARTERIAL BLOOD GASES] DAILY Lab 05/24/22 05:00 Ordered ABG [ARTERIAL BLOOD GASES] DAILY Lab 05/25/22 05:00 Ordered ABG [ARTERIAL BLOOD GASES] DAILY Lab 05/26/22 05:00 Ordered ABG [ARTERIAL BLOOD GASES] DAILY Lab 05/27/22 05:00 Ordered ABG [ARTERIAL BLOOD GASES] DAILY Lab 05/28/22 05:00 Ordered CBC DAILY Lab 05/23/22 05:00 Completed CBC DAILY Lab 05/24/22 22:15 Ordered CBC DAILY Lab 05/25/22 22:15 Ordered CBC DAILY Lab 05/26/22 22:15 Ordered CBC DAILY Lab 05/27/22 22:15 Ordered CMP/HFII DAILY Lab 05/23/22 05:00 Completed CMP/HFII DAILY Lab 05/24/22 22:15 Ordered CMP/HFII DAILY Lab 05/25/22 22:15 Ordered CMP/HFII DAILY Lab 05/26/22 22:15 Ordered CMP/HFII DAILY Lab 05/27/22 22:15 Ordered Sputum Culture [CULTURE,SPUTUM] Routine Lab 05/23/22 17:36 Ordered Amiodarone in Dextrose,Iso-Osm [Nexterone 360 mg/200 ml Med 05/23/22 08:15 Active Bag] 360 mg in 200 ml IV 17 mls/hr Haloperidol Lactate 5 mg [Haldol 5 MG] Med 05/24/22 07:00 Once 5 mg IV ONCE ONE Levofloxacin [Levofloxacin 500MG/100ML D5W] Med 05/23/22 20:00 Active 500 mg in 100 ml IV Q24H10 Code(s): J96.21 - ACUTE AND CHRONIC RESPIRATORY FAILURE WITH HYPOXIA (2) Acute on chronic diastolic congestive heart failure, NYHA class 4 Current Visit: Yes Status: Acute Code(s): I50.33 - ACUTE ON CHRONIC DIASTOLIC (CONGESTIVE) HEART FAILURE (3) COPD exacerbation Current Visit: Yes Status: Acute Code(s): J44.1 - CHRONIC OBSTRUCTIVE PULMONARY DISEASE W (ACUTE) EXACERBATION (4) Alcoholic brain degeneration Current Visit: Yes Status: Acute Code(s): F10.20 - ALCOHOL DEPENDENCE, UNCOMPLICATED; G31.2 - DEGENERATION OF NERVOUS SYSTEM DUE TO ALCOHOL (5) Delirium due to multiple etiologies Current Visit: Yes Status: Acute Code(s): F05 - DELIRIUM DUE TO KNOWN PHYSIOLOGICAL CONDITION
[2022-05-24] MEDS: NEXTERONE 360 MG/200 ML BAG 360 MG/200 ML PLAST..BAG IV SCH ×3 (00:23→22:55)
[2022-05-24] MEDS: FENTANYL 500 MCG/10 ML VIAL 1,500 MCG in Sodium Chloride 0.9% 150 ML 120 ML IV PRN (00:23)
[2022-05-24] MEDS: Sodium Chloride 0.9% 1000 ML 1,000 ML IV SCH ×2 (00:24→16:01)
[2022-05-24] MEDS: solu-MEDROL 60 MG, Sterile H2O 10 ml 2 ML IV SCH ×10 (00:24→23:00)
[2022-05-24] MEDS: Propofol 1000 mg/100 ml Bottle 100 ML IV PRN ×3 (01:41→22:56)
[2022-05-24] MEDS: DUONEB 0.5-3 MG/3 ml Neb IH SCH ×6 (02:35→23:22)
[2022-05-24 05:18] LABS: A-aADO2 130; ABG HEMOGLOBIN 10.8; ABG POTASSIUM 4.4 (3.5-5.1); ARTERIAL BLD GAS O2 SATURATION 98.4 % (95-100); ARTERIAL BLD GAS TIDAL VOLUME 600 cc; ARTERIAL BLOOD GAS BASE EXCESS 7.7 (-2.0-2.0); ARTERIAL BLOOD GAS FIO2 40 %; ARTERIAL BLOOD GAS PCO2 50 mmHg (35-45); ARTERIAL BLOOD GAS PEEP 8 cmH2O; ARTERIAL BLOOD GAS PO2 93 mmHg (75-100); ARTERIAL BLOOD GAS VENT MODE AC; ARTERIAL BLOOD GAS VENT RATE 12 /MIN; ARTERIAL BLOOD GAS pH 7.43 (7.35-7.45); CARBOXYHEMOGLOBIN 1.1 % THgb (0.0-6.9); HCO3- 33.2 (22-28); HGB O2 SAT 96.9 g/dF (94-100); Methhemoglobin 0.5 % (1.4-1.5); paO2 pAO1 0.42
[2022-05-24 05:19] LABS: ABG SITE ARTERIAL LINE; ALLEN TEST OK? YES
[2022-05-24 05:31] LABS: Hematocrit 30.7 % (42-50); Hemoglobin 9.3 g/dL (12.5-18.0); Mean Cell Volume 86.2 fL (78-100); Mean Corpuscular Hemoglobin 26.1 pg (26-32); Mean Corpuscular Hgb Concent. 30.3 g/dL (32-36); Mean Platelet Volume 10.3 fL (7.5-11.0); Platelet Count 214 x10^3/uL (150-450); Red Blood Count 3.56 x10^6/uL (4.1-5.6); Red Cell Distribution Width 16.7 % (11.5-14.0); White Blood Count 9.2 x10^3/uL (4.0-10.5)
[2022-05-24 06:09] LABS: ALBUMIN 3.1 g/dL (3.5-5.0); ALKALINE PHOSPHATASE 91 U/L (38-126); ANION GAP 5.3 MEQ/L (5-15); BLOOD UREA NITROGEN 38 mg/dL (9-20); CHLORIDE 105 mmol/L (98-107); Calcium 7.9 mg/dL (8.4-10.2); Carbon Dioxide 35 mmol/L (22-30); Creatinine 1 0.94 mg/dL (0.66-1.25); Direct Bilirubin 0.4 mg/dL (0.0-0.4); EST GLOMERULAR FILTRATION RATE > 60.0 ML/MIN; Glucose 187 mg/dL (74-106); Potassium 4.5 mmol/L (3.5-5.1); SGOT/AST 32 U/L (17-59); SGPT/ALT 70 U/L (0-50); SODIUM 141 mmol/L (137-145); Total Protein 6.2 g/dL (6.3-8.2)
[2022-05-24] MEDS ORDERED: Haldol 5 MG IV ONE (07:00)
--- NOTE | 2022-05-24 08:01 | PROG NOTE ---
DATE: 05/23/2022 HISTORY: Christiano Pike is a 71-year-old male who has been hospitalized at [facility]. I was contacted Saturday night regarding the patient being extremely combative and unable to stay calm despite multiple medication attempts. Although his blood gases were okay, he was unable to keep BiPAP on. The patient apparently has history of advanced chronic obstructive pulmonary disease and has been poorly compliant with medications as well as supplemental oxygen. In view of failed multiple medication attempts to keep the patient calm and considering injury to self, it was advised that the patient be intubated. He was intubated in the presence of emergency room physician. Post-intubation the patient had to be mildly sedated and paralyzed overnight to keep him calm. His ABG's post-intubation were good. The patient was evaluated yesterday by OSCAR Escobedo, who discussed the entire the case with me. I have followed the patient closely for labs as well as other findings. He was taken off of paralytics this morning. The patient currently remains on Diprivan, Fentanyl and is well sedated. PHYSICAL EXAMINATION: He is noted to be afebrile. His heart rate 85 irregular. He is on amiodarone drip. His saturation is 100%. HEENT: Normocephalic. Pupils are sluggishly reactive. ET and OG tubes are in place. NECK: Supple. CVS: First and second heart sounds with irregularity. RESPIRATORY: Shows increase in AP diameter. Diminished breath sounds. Scattered rhonchi and posterior crackles are heard. ABDOMEN: Soft. EXTREMITIES: Trace edema is noted. LABORATORY DATA AND TESTS: ABG and other labs were reviewed. Chest x-ray noted. ASSESSMENT: This is a 71-year-old male admitted with: 1) Acute hypoxic respiratory failure. 2) Chronic obstructive pulmonary disease with exacerbation. 3) Behavioral disorder apparently the patient has prior history of alcohol consumption. 4) History of noncompliance. 5) Acute bronchitis. RECOMMENDATIONS: 1) The patient appears to have stabilized clinically. 2) Continue IV steroids. 3) He is not on IV antibiotics. Will add Levaquin 500 mg IV daily. 4) Continue deep vein thrombosis prophylaxis. 5) Continue sedation, analgesics as well as amiodarone. 6) The dose of Lovenox may have to be increased in view of atrial fibrillation. 7) Will attempt Haldol 5 mg IV in the morning followed by reduction of sedation and analgesics. If comfortable will attempt weaning trial. 8) Continue other supportive care. The patient's condition remains critical but stable and prognosis remains guarded. I will continue to follow.
--- NOTE | 2022-05-24 08:06 | PCM.NOTE ---
Date and Time: 05/24/22804 Subjective Assessment: on ventilator - Review of Systems All Other Systems: Unable due to condition Objective Exam General Appearance: no apparent distress Skin Exam: normal color Eye Exam: PERRL Ears, Nose, Throat Exam: normal ENT inspection Respiratory Exam: rhonchi Cardiovascular Exam: irregular Gastrointestinal/Abdomen Exam: soft OBJECTIVE DATA Vital Signs: Vital Signs - 24 hr Temp Pulse Resp BP Pulse Ox 05/24/22 07:14 103 H 12 97 05/24/22 06:00 104 H 16 134/75 98 05/24/22 05:00 98 H 17 115/65 96 05/24/22 04:00 98.2 F 95 H 12 113/64 97 05/24/22 03:08 98 H 05/24/22 03:00 92 H 12 112/62 99 05/24/22 02:35 97 H 12 98 05/24/22 02:00 95 H 12 111/61 99 05/24/22 01:00 103 H 14 112/63 96 05/24/22 00:00 98.0 F 96 H 12 103/62 96 05/23/22 23:00 92 H 12 104/62 97 05/23/22 22:30 99 H 12 99 05/23/22 22:00 94 H 16 109/63 98 05/23/22 21:00 95 H 12 108/61 97 05/23/22 20:00 97.5 F 102 H 16 112/65 97 05/23/22 19:44 96 H 05/23/22 19:00 96 H 12 107/62 97 05/23/22 18:48 96 H 22 98 05/23/22 18:00 102 H 12 112/66 97 05/23/22 17:00 98 H 12 111/65 97 05/23/22 16:00 98.4 F 99 H 12 107/61 96 05/23/22 15:41 100 H 12 96 05/23/22 15:00 98 H 12 107/64 97 05/23/22 14:00 96 H 12 105/61 96 05/23/22 13:00 104 H 12 108/64 97 05/23/22 12:00 98.6 F 101 H 12 107/64 97 05/23/22 11:35 120 H 12 98 05/23/22 11:00 101 H 14 108/63 96 05/23/22 10:00 95 H 14 110/64 97 05/23/22 09:00 101 H 15 112/67 97 Pain Assessment - Last Documented Pain Intensity 0 Pain Scale Used [facility] Intake and Output: Intake & Output 05/21/22 05/22/22 05/23/22 05/24/22 11:59 11:59 11:59 11:59 Intake Total 0 1298 3286 2666 Output Total 3850 2100 1225 1200 Balance -3850 -802 2061 1466 Weight 67.3 kg 67 kg 69 kg 70.2 kg Lab Results: Lab Results-Last 24 Hours 05/24/22 05/24/22 05/24/22 Range/Units 05:13 05:39 05:39 WBC 9.2 (4.0-10.5) x10^3/uL RBC 3.56 L (4.1-5.6) x10^6/uL Hgb 9.3 L (12.5-18.0) g/dL Hct 30.7 L (42-50) % MCV 86.2 (78-100) fL MCH 26.1 (26-32) pg MCHC 30.3 L (32-36) g/dL RDW 16.7 H (11.5-14.0) % Plt Count 214 (150-450) x10^3/uL MPV 10.3 (7.5-11.0) fL Puncture Site ARTERIAL LINE pCO2 50 H (35-45) mmHg pO2 93 (75-100) mmHg Base Excess 7.7 H (-2.0-2.0) O2 Saturation 96.9 (94-100) g/dF ABG pH 7.43 (7.35-7.45) ABG HCO3 33.2 H* (22-28) ABG O2 Sat (Measured) 98.4 (95-100) % Clay Test YES A-a Gradient 130 a/A Ratio 0.42 Hemoglobin 10.8 Carboxyhemoglobin 1.1 (0.0-6.9) % THgb Methemoglobin 0.5 L (1.4-1.5) % Potassium 4.4 4.5 (3.5-5.1) Temperature 37.0 C POC O2 Flow Rate 40 % Vent Mode AC Vent Rate 12 /MIN Tidal Volume 600 cc PEEP 8 cmH2O Sodium 141 (137-145) mmol/L Chloride 105 (98-107) mmol/L Carbon Dioxide 35 H (22-30) mmol/L Anion Gap 5.3 (5-15) MEQ/L BUN 38 H (9-20) mg/dL Creatinine 0.94 (0.66-1.25) mg/dL Estimated GFR > 60.0 ML/MIN Glucose 187 H (74-106) mg/dL Calcium 7.9 L (8.4-10.2) mg/dL Total Bilirubin 0.40 (0.2-1.3) mg/dL Direct Bilirubin 0.4 (0.0-0.4) mg/dL AST 32 (17-59) U/L ALT 70 H (0-50) U/L Alkaline Phosphatase 91 (38-126) U/L Serum Total Protein 6.2 L (6.3-8.2) g/dL Albumin 3.1 L (3.5-5.0) g/dL Radiology Exams: Radiology Procedures Category Date Time Status CHEST 1 VIEW (PORTABLE) DAILY Exams 05/23/22 08:00 Completed CHEST 1 VIEW (PORTABLE) DAILY Exams 05/24/22 08:00 Taken CHEST 1 VIEW (PORTABLE) DAILY Exams 05/25/22 08:00 Ordered CHEST 1 VIEW (PORTABLE) DAILY Exams 05/26/22 08:00 Ordered CHEST 1 VIEW (PORTABLE) Stat Exams 05/22/22 11:24 Completed Assessment/Plan (1) Acute and chronic respiratory failure with hypoxia Current Visit: Yes Status: Resolved Assessment & Plan: Chief Complaint Diagnosis EXAC COPD, AMS Allergies Allergy/AdvReac Type Severity Reaction Status Date / Time Penicillins Allergy Severe Anaphylactic Verified 05/19/22 23:52 Reaction Vital Signs (Last 24 hours) Temp Pulse Resp BP Pulse Ox 05/24/22 07:14 103 H 12 97 05/24/22 06:00 104 H 16 134/75 98 05/24/22 05:00 98 H 17 115/65 96 05/24/22 04:00 98.2 F 95 H 12 113/64 97 05/24/22 03:08 98 H 05/24/22 03:00 92 H 12 112/62 99 05/24/22 02:35 97 H 12 98 05/24/22 02:00 95 H 12 111/61 99 05/24/22 01:00 103 H 14 112/63 96 05/24/22 00:00 98.0 F 96 H 12 103/62 96 05/23/22 23:00 92 H 12 104/62 97 05/23/22 22:30 99 H 12 99 05/23/22 22:00 94 H 16 109/63 98 05/23/22 21:00 95 H 12 108/61 97 05/23/22 20:00 97.5 F 102 H 16 112/65 97 05/23/22 19:44 96 H 05/23/22 19:00 96 H 12 107/62 97 05/23/22 18:48 96 H 22 98 05/23/22 18:00 102 H 12 112/66 97 05/23/22 17:00 98 H 12 111/65 97 05/23/22 16:00 98.4 F 99 H 12 107/61 96 05/23/22 15:41 100 H 12 96 05/23/22 15:00 98 H 12 107/64 97 05/23/22 14:00 96 H 12 105/61 96 05/23/22 13:00 104 H 12 108/64 97 05/23/22 12:00 98.6 F 101 H 12 107/64 97 05/23/22 11:35 120 H 12 98 05/23/22 11:00 101 H 14 108/63 96 05/23/22 10:00 95 H 14 110/64 97 05/23/22 09:00 101 H 15 112/67 97 Home Medications Medication Instructions Recorded Confirmed Last Taken Type Amiodarone HCl 200 mg PO DAILY 05/20/22 05/20/22 Unknown History Current Medications Generic Name Dose Route Start Last Admin Trade Name Freq PRN Reason Stop Dose Admin Albuterol Sulfate 1 puff 05/20/22 12:22 Albuterol Common Canister Inhaler 06/19/22 12:21 Q4HPRN PRN SHORTNESS OF BREATH/WHEEZING Albuterol Sulfate 2.5 mg 05/20/22 12:22 05/21/22 13:57 Albuterol Sulfate 2.5 Mg/3 Ml Neb 06/19/22 12:21 2.5 mg Q4H PRN PRN Administration SHORTNESS OF BREATH/WHEEZING Albuterol/Ipratropium 3 ml 05/20/22 03:18 05/24/22 07:12 Ipratropium/Albuterol Sulfate 3 Ml Ampul.Neb IH 06/19/22 03:17 3 ml Q4HRT VERNA Administration Artificial Tears 1 gm 05/21/22 22:00 05/23/22 21:03 Lanolin/Min Oil/Petrolat Wht 3.5 Gm Tube OP 06/20/22 21:59 1 gm BID VERNA Administration Chlorhexidine Gluconate 15 ml 05/21/22 22:10 05/23/22 21:04 Chlorhexidine Gluconate 15 Ml Mouthwash MM 06/20/22 22:09 15 ml BID VERNA Administration Methylprednisolone Sodium 0 mg 05/20/22 06:00 05/24/22 05:42 Succinate 60 mg/ Sterile Water IV 06/19/22 05:59 60 mg 2 ml Q6HT VERNA Administration Docusate Sodium 100 mg 05/20/22 12:22 Docusate Sodium 100 Mg Capsule PO 06/19/22 12:21 DAILY PRN PRN CONSTIPATION Enoxaparin Sodium 40 mg 05/22/22 10:00 05/23/22 10:19 Enoxaparin Sodium 40 Mg/0.4 Ml Syringe SQ 06/21/22 09:59 40 mg DAILY VERNA Administration Famotidine 20 mg 05/20/22 10:00 05/23/22 21:03 Famotidine 20 Mg/1 Vial IV 06/19/22 09:59 20 mg Q12HT VERNA Administration Haloperidol Lactate 5 mg 05/21/22 12:17 05/21/22 12:25 Haloperidol Lactate 5 Mg/Ml Vial IV 06/20/22 12:16 5 mg Q8H PRN PRN Administration AGITATION Sodium Chloride 1,000 mls @ 75 mls/hr 05/20/22 03:18 05/24/22 00:24 Sodium Chloride 0.9% 1000 Ml IV 06/19/22 03:17 75 mls/hr .[id number] VRENA Administration Propofol 100 mls @ 2.019 mls/hr 05/21/22 19:50 05/24/22 06:22 Propofol 1000 Mg/100 Ml Bottle IV 06/20/22 19:49 20 mcg/kg/min .Q24H PRN 8.076 mls/hr SEDATION FOR VENT Titration Protocol 5 MCG/KG/MIN Fentanyl Citrate 1,500 mcg/ 150 mls @ 6.7 mls/hr 05/22/22 09:00 05/24/22 06:21 Sodium Chloride IV 06/21/22 08:59 0.5 mcg/kg/hr .[id number] PRN 3.35 mls/hr PAIN Titration Protocol 1 MCG/KG/HR Amiodarone HCl/Dextrose 360 mg in 200 mls @ 17 mls/hr 05/23/22 08:15 05/24/22 04:00 Nexterone 360 Mg/200 Ml Bag IV 06/22/22 08:14 16.7 mls/hr .[id number] VERNA 16.7 mls/hr Titration Protocol Levofloxacin/Dextrose 500 mg in 100 mls @ 100 mls/hr 05/23/22 20:00 05/23/22 19:37 Levofloxacin 500mg/100ml D5w IV 06/22/22 19:59 100 mls/hr Q24H10 VERNA Administration Insulin Human Lispro 0 unit 05/20/22 09:51 Insulin Lispro 1 Unit SQ 06/19/22 09:50 UD PRN HYPERGLYCEMIA Lorazepam 2 mg 05/22/22 08:35 05/23/22 10:30 Lorazepam 2 Mg/1 Ml 2 Mg Vial IV 06/21/22 08:34 2 mg Q4HPRN PRN Administration AGITATION Mupirocin 1 gm 05/22/22 10:00 05/23/22 21:03 Mupirocin 22 Gm Tube Ointment TP 06/20/22 22:14 1 gm BID VERNA Administration Discontinued Medications Generic Name Dose Route Start Last Admin Trade Name Freq PRN Reason Stop Dose Admin Albuterol/Ipratropium 3 ml 05/20/22 15:00 Ipratropium/Albuterol Sulfate 3 Ml Ampul.Neb IH 06/19/22 14:59 QIDRT VERNA Amiodarone HCl 200 mg 05/20/22 14:00 05/22/22 10:10 Amiodarone Hcl 200 Mg Tab PO 06/19/22 13:59 Not Given DAILY VERNA Apixaban 5 mg 05/20/22 14:00 05/21/22 22:55 Apixaban 2.5 Mg Tablet PO 06/19/22 13:59 5 mg BID VERNA Administration Aspirin 325 mg 05/20/22 23:58 Aspirin 325 Mg Tablet.Ec PO 05/20/22 23:59 STAT ONE Aspirin 324 mg 05/20/22 00:04 05/20/22 00:06 Aspirin 81 Mg Tab.Chew PO 05/20/22 00:05 324 mg STAT ONE Administration Aspirin Confirm 05/20/22 00:03 Aspirin 81 Mg Tab.Chew Administered 05/20/22 00:04 Dose 324 mg .ROUTE .STK-MED ONE Cisatracurium Besylate 10 mg 05/21/22 20:00 05/21/22 20:02 Cisatracurium 20 Mg/10 Ml Vial 0.15 mg/kg (10 mg) 05/21/22 20:01 10 mg IV Administration STAT STA Methylprednisolone Sodium 0 mg 05/19/22 23:48 05/20/22 00:00 Succinate 125 mg/ Sterile IV 05/19/22 23:49 125 mg Water 2 ml STAT ONE Administration Diltiazem HCl 5 mg 05/20/22 17:00 05/22/22 21:38 Diltiazem Hcl Iv 5 Mg/Ml Vial IV 06/19/22 16:59 Not Given Q12H VERNA Diltiazem HCl Confirm 05/21/22 06:26 Diltiazem Hcl Iv 5 Mg/Ml Vial Administered 05/21/22 06:27 Dose 50 mg IV .STK-MED ONE Doxycycline Hyclate Confirm 05/20/22 00:03 Doxycycline Hyclate 100 Mg/Vial Injection Administered 05/20/22 00:04 Dose 100 mg IV .STK-MED ONE Doxycycline Hyclate 100 mg 05/20/22 10:00 Doxycycline Hyclate 100 Mg Tablet PO 06/19/22 09:59 BID VERNA Furosemide 40 mg 05/20/22 10:00 05/22/22 13:48 Furosemide 40 Mg/4 Ml Vial IV 06/19/22 09:59 Not Given Q12H VERNA Haloperidol Lactate 5 mg 05/24/22 07:00 Haloperidol Lactate 5 Mg/Ml Vial IV 05/24/22 07:01 ONCE ONE Hydroxyzine HCl 25 mg 05/20/22 15:00 05/22/22 17:18 Hydroxyzine Hcl 25 Mg Tablet PO 06/19/22 14:59 Not Given TID VERNA Sodium Chloride 1,000 mls @ 999 mls/hr 05/19/22 23:48 05/20/22 02:54 Sodium Chloride 0.9% 1000 Ml IV 05/20/22 00:48 Infused .Q1H1M STA Infusion Azithromycin 500 mg in 250 mls @ 250 mls/hr 05/19/22 23:48 05/20/22 00:01 Zithromax 500 Mg/ 250 Ml Nacl Premix IV 05/20/22 00:47 Not Given STAT STA Doxycycline Hyclate 100 mg/ 100 mls @ 100 mls/hr 05/20/22 10:00 05/20/22 00:12 Dextrose IV 06/19/22 09:59 100 mls/hr Q12HT VERNA Administration Azithromycin Confirm 05/19/22 23:59 Zithromax 500 Mg/ 250 Ml Nacl Premix Administered 05/20/22 00:00 Dose 500 mg in 250 mls @ ud IV .STK-MED ONE Sodium Chloride Confirm 05/19/22 23:59 Sodium Chloride 0.9% 1000 Ml Administered 05/20/22 00:00 Dose 1,000 mls @ ud .ROUTE .STK-MED ONE Dextrose Confirm 05/20/22 00:03 D5w 100ml Mini Bag 100 Ml Administered 05/20/22 00:04 Dose 100 mls @ ud IV .STK-MED ONE Potassium Chloride 100 mls @ 50 mls/hr 05/21/22 07:00 05/21/22 23:35 Potassium Chloride 20 Meq In Water 100ml IV 05/21/22 14:59 50 mls/hr Q2H VERNA Administration Cisatracurium Besylate 200 mg/ 200 mls @ 8.076 mls/hr 05/21/22 20:11 05/22/22 10:40 Dextrose IV 06/20/22 20:10 0 mcg/kg/min .Q24H PRN 0 mls/hr PARALYSIS Titration Protocol 2 MCG/KG/MIN Potassium Chloride Confirm 05/21/22 23:33 Potassium Chloride 20 Meq In Water 100ml Administered 05/21/22 23:34 Dose 100 mls @ ud IV .STK-MED ONE Fentanyl Citrate 1,500 mcg/ 150 mls @ ud 05/22/22 09:00 Sodium Chloride IV 05/22/22 09:01 .STK-MED ONE Sodium Chloride 1,000 mls @ 250 mls/hr 05/22/22 08:33 05/22/22 08:57 Sodium Chloride 0.9% 1000 Ml IV 05/22/22 12:32 250 mls/hr .Q4H STA Administration Sodium Chloride Confirm 05/22/22 09:21 Sodium Chloride 0.9% 1000 Ml Administered 05/22/22 09:22 Dose 1,000 mls @ ud .ROUTE .STK-MED ONE Sodium Chloride Confirm 05/22/22 09:25 Sodium Chloride 0.9% 500 Ml Administered 05/22/22 09:26 Dose 500 mls @ ud IV .STK-MED ONE Amiodarone HCl/Dextrose 360 mg in 200 mls @ 33 mls/hr 05/22/22 10:45 05/23/22 05:56 Nexterone 360 Mg/200 Ml Bag IV 06/21/22 10:44 Not Given .Q6H4M [facility] Protocol Ketamine HCl 20 mg 05/21/22 19:50 05/21/22 19:51 Ketamine Hcl 50 Mg/Ml IV 05/21/22 19:51 20 mg STAT ONE Administration Ketamine HCl 20 mg 05/21/22 19:53 05/21/22 19:55 Ketamine Hcl 50 Mg/Ml IV 05/21/22 19:54 20 mg STAT ONE Administration Lorazepam 2 mg 05/20/22 01:29 05/20/22 02:24 Lorazepam 2 Mg/1 Ml 2 Mg Vial IV 05/20/22 01:30 2 mg STAT ONE Administration Lorazepam Confirm 05/20/22 02:20 Lorazepam 2 Mg/1 Ml 2 Mg Vial Administered 05/20/22 02:21 Dose 2 mg .ROUTE .STK-MED ONE Lorazepam 1 mg 05/20/22 07:40 05/21/22 13:01 Lorazepam 2 Mg/1 Ml 2 Mg Vial IV 06/19/22 07:39 1 mg Q6H PRN PRN Administration ANXIETY Methylprednisolone Sodium Succinate Confirm 05/19/22 23:59 Methylprednis Sod Succ 125 Mg/2 Ml Vial Administered 05/20/22 00:00 Dose 125 mg .ROUTE .STK-MED ONE Methylprednisolone Sodium Succinate Confirm 05/20/22 06:10 Methylprednis Sod Succ 125 Mg/2 Ml Vial Administered 05/20/22 06:11 Dose 125 mg .ROUTE .STK-MED ONE Methylprednisolone Sodium Succinate Confirm 05/21/22 17:14 Methylprednis Sod Succ 125 Mg/2 Ml Vial Administered 05/21/22 17:15 Dose 125 mg .ROUTE .STK-MED ONE Metoprolol Tartrate 50 mg 05/20/22 14:00 05/22/22 10:10 Metoprolol Tartrate 50 Mg Tablet PO 06/19/22 13:59 Not Given DAILY VERNA Morphine Sulfate Confirm 05/21/22 19:10 Morphine Sulfate 2 Mg/Ml Inj Administered 05/21/22 19:11 Dose 2 mg .ROUTE .STK-MED ONE Morphine Sulfate 1 mg 05/21/22 19:13 05/21/22 19:14 Morphine Sulfate 2 Mg/Ml Inj IV 05/21/22 19:14 1 mg STAT ONE Administration Mupirocin 1 gm 05/21/22 22:15 05/21/22 22:28 Mupirocin 22 Gm Tube Ointment TP 06/20/22 22:14 1 gm UD VERNA Administration Non-Formulary Medication 1 each 05/22/22 09:23 05/22/22 11:42 Pharmacy Dosing Request 05/22/22 09:24 Not Given STAT ONE Olanzapine 10 mg 05/21/22 10:00 05/21/22 09:38 Olanzapine 5 Mg/Tab Orally Disintegrating PO 05/21/22 10:01 10 mg STAT ONE Administration Olanzapine 5 mg 05/21/22 22:00 05/21/22 23:02 Olanzapine 5 Mg/Tab Orally Disintegrating PO 06/20/22 21:59 Not Given QHS VERNA Potassium Bicarbonate 25 meq 05/22/22 02:15 05/22/22 06:13 Potassium Bicarbonate 25 Meq Tab PO 05/22/22 06:16 25 meq Q2H VERNA Administration Propofol 100 mg 05/21/22 19:50 05/21/22 21:16 Propofol 10 Mg/Ml 20ml Vial 1.5 mg/kg (100 mg) 05/21/22 19:51 Not Given IV STAT STA Quetiapine Fumarate 50 mg 05/21/22 14:18 05/21/22 14:45 Quetiapine Fumarate 25 Mg Tablet PO 05/21/22 14:19 50 mg NOW ONE Administration Quetiapine Fumarate 50 mg 05/21/22 22:00 05/22/22 09:58 Quetiapine Fumarate 25 Mg Tablet PO 06/20/22 21:59 Not Given BID VERNA Sterile Water Confirm 05/19/22 23:59 Water For Injection,Sterile 10 Ml Vial Administered 05/20/22 00:00 Dose 10 ml IJ .STK-MED ONE Sterile Water Confirm 05/20/22 06:10 Water For Injection,Sterile 10 Ml Vial Administered 05/20/22 06:11 Dose 10 ml IJ .STK-MED ONE Intake & Output (Last 24 hours) 05/21/22 05/22/22 05/23/22 05/24/22 11:59 11:59 11:59 11:59 Intake Total 0 1298 3286 2666 Output Total 3850 2100 1225 1200 Balance -3850 -802 2061 1466 Weight 67.3 kg 67 kg 69 kg 70.2 kg Microbiology Results (Last 24 hours) 05/20/22 00:30 Blood Blood Culture Gram Stain - Final Not Reportable 05/20/22 00:30 Blood Blood Culture - Final NO GROWTH 05/20/22 00:32 Blood Blood Culture Gram Stain - Final Not Reportable 05/20/22 00:32 Blood Blood Culture - Final NO GROWTH 05/23/22 18:56 Sputum - Expectorant Gram Stain - Pending 05/23/22 18:56 Sputum - Expectorant Sputum Culture - Pending Laboratory Results (Last 24 hours) 05/24/22 05/24/22 05/24/22 05:39 05:39 05:13 WBC 9.2 RBC 3.56 L Hgb 9.3 L Hct 30.7 L MCV 86.2 MCH 26.1 MCHC 30.3 L RDW 16.7 H Plt Count 214 MPV 10.3 Puncture Site ARTERIAL LINE pCO2 50 H pO2 93 Base Excess 7.7 H O2 Saturation 96.9 ABG pH 7.43 ABG HCO3 33.2 H* ABG O2 Sat (Measured) 98.4 Clay Test YES A-a Gradient 130 a/A Ratio 0.42 Hemoglobin 10.8 Carboxyhemoglobin 1.1 Methemoglobin 0.5 L Potassium 4.5 4.4 Temperature 37.0 POC O2 Flow Rate 40 Vent Mode AC Vent Rate 12 Tidal Volume 600 PEEP 8 Sodium 141 Chloride 105 Carbon Dioxide 35 H Anion Gap 5.3 BUN 38 H Creatinine 0.94 Estimated GFR > 60.0 Glucose 187 H Calcium 7.9 L Total Bilirubin 0.40 Direct Bilirubin 0.4 AST 32 ALT 70 H Alkaline Phosphatase 91 Serum Total Protein 6.2 L Albumin 3.1 L Orders (Last 24 hours) Category Date Time Status CHEST 1 VIEW (PORTABLE) DAILY Exams 05/23/22 08:00 Completed CHEST 1 VIEW (PORTABLE) DAILY Exams 05/24/22 08:00 Taken CHEST 1 VIEW (PORTABLE) DAILY Exams 05/25/22 08:00 Ordered CHEST 1 VIEW (PORTABLE) DAILY Exams 05/26/22 08:00 Ordered ABG [ARTERIAL BLOOD GASES] DAILY Lab 05/24/22 05:13 Completed ABG [ARTERIAL BLOOD GASES] DAILY Lab 05/25/22 05:00 Ordered ABG [ARTERIAL BLOOD GASES] DAILY Lab 05/26/22 05:00 Ordered ABG [ARTERIAL BLOOD GASES] DAILY Lab 05/27/22 05:00 Ordered ABG [ARTERIAL BLOOD GASES] DAILY Lab 05/28/22 05:00 Ordered CBC DAILY Lab 05/24/22 05:39 Completed CBC DAILY Lab 05/25/22 22:15 Ordered CBC DAILY Lab 05/26/22 22:15 Ordered CBC DAILY Lab 05/27/22 22:15 Ordered CMP/HFII DAILY Lab 05/24/22 05:39 Completed CMP/HFII DAILY Lab 05/25/22 22:15 Ordered CMP/HFII DAILY Lab 05/26/22 22:15 Ordered CMP/HFII DAILY Lab 05/27/22 22:15 Ordered Sputum Culture [CULTURE,SPUTUM] Routine Lab 05/23/22 18:56 Received Amiodarone in Dextrose,Iso-Osm [Nexterone 360 mg/200 ml Med 05/23/22 08:15 Active Bag] 360 mg in 200 ml IV 17 mls/hr Haloperidol Lactate 5 mg [Haldol 5 MG] Med 05/24/22 07:00 Discontinued 5 mg IV ONCE ONE Levofloxacin [Levofloxacin 500MG/100ML D5W] Med 05/23/22 20:00 Active 500 mg in 100 ml IV Q24H10 Code(s): J96.21 - ACUTE AND CHRONIC RESPIRATORY FAILURE WITH HYPOXIA (2) Acute on chronic diastolic congestive heart failure, NYHA class 4 Current Visit: Yes Status: Acute Code(s): I50.33 - ACUTE ON CHRONIC DIASTOLIC (CONGESTIVE) HEART FAILURE (3) COPD exacerbation Current Visit: Yes Status: Acute Code(s): J44.1 - CHRONIC OBSTRUCTIVE PULMONARY DISEASE W (ACUTE) EXACERBATION (4) Alcoholic brain degeneration Current Visit: Yes Status: Acute Code(s): F10.20 - ALCOHOL DEPENDENCE, UNCOMPLICATED; G31.2 - DEGENERATION OF NERVOUS SYSTEM DUE TO ALCOHOL (5) Delirium due to multiple etiologies Current Visit: Yes Status: Acute Code(s): F05 - DELIRIUM DUE TO KNOWN PHYSIOLOGICAL CONDITION
--- NOTE | 2022-05-24 08:37 | XRAY ---
Indication: Patient on ventilator. Comparison: One day earlier Portable chest again demonstrates diffuse bilateral hazy airspace disease with interval developing bibasilar infiltrates/atelectasis and small left effusion. Heart not enlarged. Stable endotracheal tube tip 6 cm above brian and orogastric tube tip in stomach.
--- NOTE | 2022-05-24 09:48 | PROG NOTE ---
Events noted. Chart reviewed. DATE: 05/24/2022 HISTORY: The patient remains on low dose sedation and analgesic. He is arousable but appears somewhat restless. PHYSICAL EXAMINATION: Heart rate is 96 irregular, blood pressure 132/72, saturating 100%. HEENT: Normocephalic. Oral exam limited. ET and OT tubes are in place. NECK: Supple. CVS: First and second heart sounds are irregular, rate controlled. RESPIRATORY: Shows diminished breath sounds. Rhonchi are heard. ABDOMEN: Soft. EXTREMITIES: Trace edema is noted. LABORATORY DATA AND TESTS: Labs and x-rays reviewed. Blood cultures have remained negative. The patient is noted with copious amounts of respiratory secretions. ABG with pH 7.43, pCO2 of 50, pO2 of 93 on assist control rate of 12, tidal volume of 600, FiO2 of 40%,. PEEP 8. White count 9.2. ASSESSMENT: This is a 71-year-old male admitted with: 1) Acute hypoxic respiratory failure. 2) Chronic obstructive pulmonary disease with exacerbation. 3) Acute exacerbation of chronic bronchitis. 4) Atrial fibrillation controlled ventricular rate. 5) History of alcohol abuse. 6) History of hypertension. RECOMMENDATIONS: 1) The patient remains stable hemodynamically. 2) Advised to reduce sedation as tolerated and attempt weaning trial. 3) Continued sedation and analgesics at low dose particularly until DT withdrawal window is over. 4) Consider incremental increase in Lovenox dose to cover for atrial fibrillation. 5) Continue antibiotics and steroids. 6) May initiate nutritional support. Further recommendations pending clinical improvement.
[2022-05-24] MEDS: Pepcid 20 MG VIAL IV SCH ×2 (10:52→20:59)
[2022-05-24] MEDS: Lubrifresh P.M. 3.5 gm Ointment OP SCH ×2 (10:52→21:03)
[2022-05-24] MEDS: Bactroban OINTMENT TP SCH ×2 (10:52→21:00)
[2022-05-24] MEDS: ENOXAPARIN SODIUM SQ SCH ×2 (10:53→20:59)
[2022-05-24] MEDS: PERIDEX MM SCH ×2 (10:53→21:14)
[2022-05-24] MEDS: Ativan 2 MG/1 ML VIAL IV PRN ×2 (11:12→21:23)
[2022-05-24] MEDS: Levofloxacin 500MG/100ML D5W 500 MG/100 ML BAG IV SCH (20:59)
[2022-05-24] MEDS: HUMALOG SQ PRN (23:55)
[2022-05-25] MEDS: FENTANYL 500 MCG/10 ML VIAL 1,500 MCG in Sodium Chloride 0.9% 150 ML 120 ML IV PRN (01:50)
[2022-05-25] MEDS: DUONEB 0.5-3 MG/3 ml Neb IH SCH ×6 (02:21→23:08)
[2022-05-25] MEDS: solu-MEDROL 60 MG, Sterile H2O 10 ml 2 ML IV SCH ×8 (05:23→23:13)
[2022-05-25] MEDS: Sodium Chloride 0.9% 1000 ML 1,000 ML IV SCH ×6 (05:23→16:46)
[2022-05-25 05:24] LABS: Hematocrit 29.6 % (42-50); Hemoglobin 9.1 g/dL (12.5-18.0); Mean Cell Volume 85.8 fL (78-100); Mean Corpuscular Hemoglobin 26.4 pg (26-32); Mean Corpuscular Hgb Concent. 30.7 g/dL (32-36); Mean Platelet Volume 10.2 fL (7.5-11.0); Platelet Count 218 x10^3/uL (150-450); Red Blood Count 3.45 x10^6/uL (4.1-5.6); Red Cell Distribution Width 17.2 % (11.5-14.0); White Blood Count 7.6 x10^3/uL (4.0-10.5)
[2022-05-25 05:46] LABS: A-aADO2 117; ABG HEMOGLOBIN 10.7; ABG POTASSIUM 4.5 (3.5-5.1); ABG SITE ART LINE; ARTERIAL BLD GAS O2 SATURATION 98.4 % (95-100); ARTERIAL BLD GAS TIDAL VOLUME 600 cc; ARTERIAL BLOOD GAS BASE EXCESS 7.2 (-2.0-2.0); ARTERIAL BLOOD GAS FIO2 40 %; ARTERIAL BLOOD GAS PCO2 52 mmHg (35-45); ARTERIAL BLOOD GAS PO2 103 mmHg (75-100); ARTERIAL BLOOD GAS VENT MODE A/C; ARTERIAL BLOOD GAS pH 7.41 (7.35-7.45); CARBOXYHEMOGLOBIN 0.7 % THgb (0.0-6.9); Methhemoglobin 0.7 % (1.4-1.5); paO2 pAO1 0.47
[2022-05-25 06:00] LABS: ALKALINE PHOSPHATASE 87 U/L (38-126); ANION GAP 6.8 MEQ/L (5-15); BLOOD UREA NITROGEN 40 mg/dL (9-20); CHLORIDE 109 mmol/L (98-107); Calcium 7.9 mg/dL (8.4-10.2); Carbon Dioxide 35 mmol/L (22-30); Creatinine 1 0.87 mg/dL (0.66-1.25); Direct Bilirubin 0.3 mg/dL (0.0-0.4); EST GLOMERULAR FILTRATION RATE > 60.0 ML/MIN; Glucose 218 mg/dL (74-106); Potassium 4.5 mmol/L (3.5-5.1); SGOT/AST 30 U/L (17-59); SGPT/ALT 56 U/L (0-50); SODIUM 145 mmol/L (137-145); Total Protein 6.1 g/dL (6.3-8.2)
[2022-05-25] MEDS: Propofol 1000 mg/100 ml Bottle 100 ML IV PRN ×2 (08:43→19:17)
[2022-05-25] MEDS: Bactroban OINTMENT TP SCH ×2 (08:58→21:51)
[2022-05-25] MEDS: ENOXAPARIN SODIUM SQ SCH ×2 (08:59→21:35)
[2022-05-25] MEDS: Lubrifresh P.M. 3.5 gm Ointment OP SCH ×2 (08:59→21:52)
[2022-05-25] MEDS: Pepcid 20 MG VIAL IV SCH ×2 (08:59→21:35)
[2022-05-25] MEDS: PERIDEX MM SCH ×2 (08:59→21:50)
--- NOTE | 2022-05-25 09:06 | XRAY ---
Indication: Patient on ventilator. Comparison: One day earlier. Portable chest again demonstrates diffuse bilateral hazy airspace disease, slightly worsened in right upper lobe. Also increasing small left effusion. Heart not enlarged. Stable endotracheal and orogastric tube in situ.
[2022-05-25] MEDS: NEXTERONE 360 MG/200 ML BAG 360 MG/200 ML PLAST..BAG IV SCH ×2 (10:06→21:36)
[2022-05-25] MEDS ORDERED: solu-MEDROL ONE (15:47)
[2022-05-25] MEDS: HUMALOG SQ PRN ×2 (20:04→23:12)
[2022-05-25] MEDS: Levofloxacin 500MG/100ML D5W 500 MG/100 ML BAG IV SCH (21:54)
[2022-05-26] MEDS: FENTANYL 500 MCG/10 ML VIAL 1,500 MCG in Sodium Chloride 0.9% 150 ML 120 ML IV PRN (00:14)
[2022-05-26] MEDS: DUONEB 0.5-3 MG/3 ml Neb IH SCH ×6 (03:55→23:28)
[2022-05-26] MEDS: Propofol 1000 mg/100 ml Bottle 100 ML IV PRN ×4 (03:56→23:44)
[2022-05-26] MEDS: HUMALOG SQ PRN ×2 (04:16→20:29)
[2022-05-26] MEDS: Ativan 2 MG/1 ML VIAL IV PRN (04:22)
[2022-05-26 04:59] LABS: Hematocrit 30.7 % (42-50); Hemoglobin 9.2 g/dL (12.5-18.0); Mean Cell Volume 87.5 fL (78-100); Mean Corpuscular Hemoglobin 26.2 pg (26-32); Mean Platelet Volume 9.9 fL (7.5-11.0); Platelet Count 209 x10^3/uL (150-450); Red Blood Count 3.51 x10^6/uL (4.1-5.6); White Blood Count 9.1 x10^3/uL (4.0-10.5)
[2022-05-26 05:21] LABS: ALBUMIN 2.9 g/dL (3.5-5.0); ALKALINE PHOSPHATASE 86 U/L (38-126); ANION GAP 5.9 MEQ/L (5-15); BLOOD UREA NITROGEN 40 mg/dL (9-20); CHLORIDE 111 mmol/L (98-107); Calcium 7.8 mg/dL (8.4-10.2); Carbon Dioxide 34 mmol/L (22-30); Creatinine 1 0.86 mg/dL (0.66-1.25); Direct Bilirubin 0.4 mg/dL (0.0-0.4); EST GLOMERULAR FILTRATION RATE > 60.0 ML/MIN; Glucose 226 mg/dL (74-106); Potassium 4.6 mmol/L (3.5-5.1); SGOT/AST 31 U/L (17-59); SGPT/ALT 54 U/L (0-50); SODIUM 146 mmol/L (137-145); Total Protein 5.9 g/dL (6.3-8.2)
[2022-05-26] MEDS: solu-MEDROL 60 MG, Sterile H2O 10 ml 2 ML IV SCH ×8 (05:31→23:49)
[2022-05-26] MEDS: Sodium Chloride 0.9% 1000 ML 1,000 ML IV SCH ×2 (05:31→17:03)
[2022-05-26 06:16] LABS: A-aADO2 110; ABG HEMOGLOBIN 9.5; ABG POTASSIUM 4.6 (3.5-5.1); ARTERIAL BLD GAS O2 SATURATION 99.8 % (95-100); ARTERIAL BLD GAS TIDAL VOLUME 600 cc; ARTERIAL BLOOD GAS FIO2 40 %; ARTERIAL BLOOD GAS PCO2 50 mmHg (35-45); ARTERIAL BLOOD GAS PO2 113 mmHg (75-100); ARTERIAL BLOOD GAS pH 7.42 (7.35-7.45); CARBOXYHEMOGLOBIN 4.6 % THgb (0.0-6.9); HCO3- 32.4 (22-28); HGB O2 SAT 94.6 g/dF (94-100); Methhemoglobin 0.6 % (1.4-1.5); paO2 pAO1 0.51
[2022-05-26 06:17] LABS: ABG SITE ART LINE
[2022-05-26] MEDS: NEXTERONE 360 MG/200 ML BAG 360 MG/200 ML PLAST..BAG IV SCH ×2 (06:53→17:04)
[2022-05-26] MEDS ORDERED: Cordarone 150 MG/3 ML Injection*** 150 MG in D5w 100ML Mini Bag 100 ML 100 ML IV ONE (07:40)
[2022-05-26] MEDS: Bactroban OINTMENT TP SCH ×2 (09:01→21:41)
[2022-05-26] MEDS: Pepcid 20 MG VIAL IV SCH ×2 (09:01→21:40)
[2022-05-26] MEDS: ENOXAPARIN SODIUM SQ SCH ×2 (09:01→21:40)
[2022-05-26] MEDS: Lubrifresh P.M. 3.5 gm Ointment OP SCH ×2 (09:02→21:41)
[2022-05-26] MEDS: PERIDEX MM SCH ×2 (09:02→21:47)
--- NOTE | 2022-05-26 12:27 | PCM.NOTE ---
Date and Time: 05/25/22 1225 Subjective Assessment: Late entry note Patient intubated, sedated - Review of Systems All Other Systems: Unable due to condition Objective Exam General Appearance: mild distress Skin Exam: normal color Eye Exam: PERRL Neck Exam: normal inspection Respiratory Exam: diminished breath sounds Cardiovascular Exam: regular rate/rhythm Gastrointestinal/Abdomen Exam: soft Extremity Exam: normal inspection OBJECTIVE DATA Vital Signs: Vital Signs - 24 hr Temp Pulse Resp BP Pulse Ox 05/26/22 11:58 94 H 12 123/63 97 05/26/22 11:33 89 05/26/22 10:59 103 H 12 140/68 100 05/26/22 10:49 93 H 12 100 05/26/22 10:00 88 12 128/65 98 05/26/22 09:00 91 H 15 121/67 98 05/26/22 08:00 112 H 14 104/61 95 05/26/22 07:16 126 H 05/26/22 07:09 108 H 12 100 05/26/22 07:00 97.8 F 90 12 125/67 99 05/26/22 05:55 97.4 F 87 14 125/64 05/26/22 05:00 90 14 121/61 05/26/22 04:22 105 H 18 05/26/22 04:19 96 H 18 136/69 100 05/26/22 03:56 97.7 F 88 18 137/70 100 05/26/22 03:50 97 H 12 98 05/26/22 02:56 84 16 130/69 100 05/26/22 02:00 84 18 131/69 100 05/26/22 01:29 87 15 126/64 05/26/22 00:59 90 15 126/65 05/26/22 00:48 15 05/26/22 00:31 93 H 12 123/63 05/26/22 00:00 97 F 89 12 121/63 98 05/25/22 23:32 93 H 05/25/22 23:31 93 H 12 128/71 100 05/25/22 23:09 96 H 12 98 05/25/22 22:59 97.1 F 102 H 14 131/69 100 05/25/22 22:21 101 H 16 131/76 05/25/22 21:56 97 F 97 H 17 135/72 05/25/22 21:27 94 H 14 126/64 05/25/22 21:00 97.5 F 92 H 16 128/64 100 05/25/22 20:31 97.5 F 97 H 16 141/70 100 05/25/22 20:00 97.5 F 92 H 18 121/77 100 05/25/22 19:25 97.5 F 90 19 117/76 100 05/25/22 19:23 95 H 12 98 05/25/22 19:19 97.5 F 107 H 125/63 97 05/25/22 18:57 93 H 128/69 98 05/25/22 18:36 98 05/25/22 17:55 89 19 124/68 98 05/25/22 16:48 87 19 119/61 98 05/25/22 15:58 93 H 21 117/60 98 05/25/22 15:00 93 H 21 118/60 98 05/25/22 14:30 96 H 12 98 05/25/22 13:56 89 12 120/61 97 05/25/22 13:00 85 12 119/63 98 Pain Assessment - Last Documented Pain Intensity 0 Pain Scale Used [facility] Intake and Output: Intake & Output 05/24/22 05/25/22 05/26/22 05/27/22 11:59 11:59 11:59 11:59 Intake Total 2666 2561 3835 Output Total 1200 1000 1400 Balance 1466 5591 2055 Weight 70.2 kg 72.4 kg 72.4 kg Lab Results: Lab Results-Last 24 Hours 05/24/22 05/24/22 05/25/22 Range/Units 23:49 23:51 06:37 WBC (4.0-10.5) x10^3/uL RBC (4.1-5.6) x10^6/uL Hgb (12.5-18.0) g/dL Hct (42-50) % MCV (78-100) fL MCH (26-32) pg MCHC (32-36) g/dL RDW (11.5-14.0) % Plt Count (150-450) x10^3/uL MPV (7.5-11.0) fL Puncture Site pCO2 (35-45) mmHg pO2 (75-100) mmHg Base Excess (-2.0-2.0) O2 Saturation (94-100) g/dF ABG pH (7.35-7.45) ABG HCO3 (22-28) ABG O2 Sat (Measured) (95-100) % Clay Test A-a Gradient a/A Ratio Hemoglobin Carboxyhemoglobin (0.0-6.9) % THgb Methemoglobin (1.4-1.5) % Potassium (3.5-5.1) Temperature C POC O2 Flow Rate % Tidal Volume cc PEEP cmH2O Sodium (137-145) mmol/L Chloride (98-107) mmol/L Carbon Dioxide (22-30) mmol/L Anion Gap (5-15) MEQ/L BUN (9-20) mg/dL Creatinine (0.66-1.25) mg/dL Estimated GFR ML/MIN Glucose (74-106) mg/dL POC Glucometer 219 H 213 H 174 H (74 to 106) mg/dL Calcium (8.4-10.2) mg/dL Magnesium (1.6-2.3) mg/dL Total Bilirubin (0.2-1.3) mg/dL Direct Bilirubin (0.0-0.4) mg/dL AST (17-59) U/L ALT (0-50) U/L Alkaline Phosphatase (38-126) U/L Troponin I (0.000-0.034) ng/mL Serum Total Protein (6.3-8.2) g/dL Albumin (3.5-5.0) g/dL 05/25/22 05/25/22 05/26/22 Range/Units 19:51 23:08 04:12 WBC (4.0-10.5) x10^3/uL RBC (4.1-5.6) x10^6/uL Hgb (12.5-18.0) g/dL Hct (42-50) % MCV (78-100) fL MCH (26-32) pg MCHC (32-36) g/dL RDW (11.5-14.0) % Plt Count (150-450) x10^3/uL MPV (7.5-11.0) fL Puncture Site pCO2 (35-45) mmHg pO2 (75-100) mmHg Base Excess (-2.0-2.0) O2 Saturation (94-100) g/dF ABG pH (7.35-7.45) ABG HCO3 (22-28) ABG O2 Sat (Measured) (95-100) % Clay Test A-a Gradient a/A Ratio Hemoglobin Carboxyhemoglobin (0.0-6.9) % THgb Methemoglobin (1.4-1.5) % Potassium (3.5-5.1) Temperature C POC O2 Flow Rate % Tidal Volume cc PEEP cmH2O Sodium (137-145) mmol/L Chloride (98-107) mmol/L Carbon Dioxide (22-30) mmol/L Anion Gap (5-15) MEQ/L BUN (9-20) mg/dL Creatinine (0.66-1.25) mg/dL Estimated GFR ML/MIN Glucose (74-106) mg/dL POC Glucometer 331 H 256 H 215 H (74 to 106) mg/dL Calcium (8.4-10.2) mg/dL Magnesium (1.6-2.3) mg/dL Total Bilirubin (0.2-1.3) mg/dL Direct Bilirubin (0.0-0.4) mg/dL AST (17-59) U/L ALT (0-50) U/L Alkaline Phosphatase (38-126) U/L Troponin I (0.000-0.034) ng/mL Serum Total Protein (6.3-8.2) g/dL Albumin (3.5-5.0) g/dL 05/26/22 05/26/22 05/26/22 Range/Units 04:50 04:57 04:57 WBC 9.1 (4.0-10.5) x10^3/uL RBC 3.51 L (4.1-5.6) x10^6/uL Hgb 9.2 L (12.5-18.0) g/dL Hct 30.7 L (42-50) % MCV 87.5 (78-100) fL MCH 26.2 (26-32) pg MCHC 30.0 L (32-36) g/dL RDW 17.0 H (11.5-14.0) % Plt Count 209 (150-450) x10^3/uL MPV 9.9 (7.5-11.0) fL Puncture Site ART LINE pCO2 50 H (35-45) mmHg pO2 113 H (75-100) mmHg Base Excess 7.0 H (-2.0-2.0) O2 Saturation 94.6 (94-100) g/dF ABG pH 7.42 (7.35-7.45) ABG HCO3 32.4 H* (22-28) ABG O2 Sat (Measured) 99.8 (95-100) % Clay Test Pending A-a Gradient 110 a/A Ratio 0.51 Hemoglobin 9.5 Carboxyhemoglobin 4.6 (0.0-6.9) % THgb Methemoglobin 0.6 L (1.4-1.5) % Potassium 4.6 4.6 (3.5-5.1) Temperature 37.0 C POC O2 Flow Rate 40 % Tidal Volume 600 cc PEEP 8.0 cmH2O Sodium 146 H (137-145) mmol/L Chloride 111 H (98-107) mmol/L Carbon Dioxide 34 H (22-30) mmol/L Anion Gap 5.9 (5-15) MEQ/L BUN 40 H (9-20) mg/dL Creatinine 0.86 (0.66-1.25) mg/dL Estimated GFR > 60.0 ML/MIN Glucose 226 H (74-106) mg/dL POC Glucometer (74 to 106) mg/dL Calcium 7.8 L (8.4-10.2) mg/dL Magnesium (1.6-2.3) mg/dL Total Bilirubin 0.40 (0.2-1.3) mg/dL Direct Bilirubin 0.4 (0.0-0.4) mg/dL AST 31 (17-59) U/L ALT 54 H (0-50) U/L Alkaline Phosphatase 86 (38-126) U/L Troponin I (0.000-0.034) ng/mL Serum Total Protein 5.9 L (6.3-8.2) g/dL Albumin 2.9 L (3.5-5.0) g/dL 05/26/22 05/26/22 Range/Units 10:20 10:20 WBC (4.0-10.5) x10^3/uL RBC (4.1-5.6) x10^6/uL Hgb (12.5-18.0) g/dL Hct (42-50) % MCV (78-100) fL MCH (26-32) pg MCHC (32-36) g/dL RDW (11.5-14.0) % Plt Count (150-450) x10^3/uL MPV (7.5-11.0) fL Puncture Site pCO2 (35-45) mmHg pO2 (75-100) mmHg Base Excess (-2.0-2.0) O2 Saturation (94-100) g/dF ABG pH (7.35-7.45) ABG HCO3 (22-28) ABG O2 Sat (Measured) (95-100) % Clay Test A-a Gradient a/A Ratio Hemoglobin Carboxyhemoglobin (0.0-6.9) % THgb Methemoglobin (1.4-1.5) % Potassium (3.5-5.1) Temperature C POC O2 Flow Rate % Tidal Volume cc PEEP cmH2O Sodium (137-145) mmol/L Chloride (98-107) mmol/L Carbon Dioxide (22-30) mmol/L Anion Gap (5-15) MEQ/L BUN (9-20) mg/dL Creatinine (0.66-1.25) mg/dL Estimated GFR ML/MIN Glucose (74-106) mg/dL POC Glucometer (74 to 106) mg/dL Calcium (8.4-10.2) mg/dL Magnesium 2.6 H (1.6-2.3) mg/dL Total Bilirubin (0.2-1.3) mg/dL Direct Bilirubin (0.0-0.4) mg/dL AST (17-59) U/L ALT (0-50) U/L Alkaline Phosphatase (38-126) U/L Troponin I 0.165 H* (0.000-0.034) ng/mL Serum Total Protein (6.3-8.2) g/dL Albumin (3.5-5.0) g/dL Radiology Exams: Radiology Procedures Category Date Time Status CHEST 1 VIEW (PORTABLE) DAILY Exams 05/25/22 06:12 Completed CHEST 1 VIEW (PORTABLE) Routine Exams 05/26/22 08:10 Taken Portable Chest [CHEST 1 VIEW (PORTABLE)] Routine Exams 05/27/22 05:00 Ordered Multi-Disciplinary Progress Notes: Multi-Disciplinary Progress Notes 05/25/22 19:18 Nutrition Note by Kia Lyon F/u NOte: Note TF at goal rate of 50cc/hour; pt tolerating well; no residual. Labs 05/25= BUN 40, glu 218, alb 3.0, hgb 9.1, hct 29.6; +fluid balance 1092mls. weight 05/24= 72.4kg. Will con't to monitor and f/u prn. Justus [email or web address] Initialized on 05/25/22 19:18 - END OF NOTE Assessment/Plan (1) Acute and chronic respiratory failure with hypoxia Current Visit: Yes Status: Acute Assessment & Plan: Chief Complaint Diagnosis EXAC COPD, AMS Allergies Allergy/AdvReac Type Severity Reaction Status Date / Time Penicillins Allergy Severe Anaphylactic Verified 05/19/22 23:52 Reaction Vital Signs (Last 24 hours) Temp Pulse Resp BP Pulse Ox 05/26/22 11:58 94 H 12 123/63 97 05/26/22 11:33 89 05/26/22 10:59 103 H 12 140/68 100 05/26/22 10:49 93 H 12 100 05/26/22 10:00 88 12 128/65 98 05/26/22 09:00 91 H 15 121/67 98 05/26/22 08:00 112 H 14 104/61 95 05/26/22 07:16 126 H 05/26/22 07:09 108 H 12 100 05/26/22 07:00 97.8 F 90 12 125/67 99 05/26/22 05:55 97.4 F 87 14 125/64 05/26/22 05:00 90 14 121/61 05/26/22 04:22 105 H 18 05/26/22 04:19 96 H 18 136/69 100 05/26/22 03:56 97.7 F 88 18 137/70 100 05/26/22 03:50 97 H 12 98 05/26/22 02:56 84 16 130/69 100 05/26/22 02:00 84 18 131/69 100 05/26/22 01:29 87 15 126/64 05/26/22 00:59 90 15 126/65 05/26/22 00:48 15 05/26/22 00:31 93 H 12 123/63 05/26/22 00:00 97 F 89 12 121/63 98 05/25/22 23:32 93 H 05/25/22 23:31 93 H 12 128/71 100 05/25/22 23:09 96 H 12 98 05/25/22 22:59 97.1 F 102 H 14 131/69 100 05/25/22 22:21 101 H 16 131/76 05/25/22 21:56 97 F 97 H 17 135/72 05/25/22 21:27 94 H 14 126/64 05/25/22 21:00 97.5 F 92 H 16 128/64 100 05/25/22 20:31 97.5 F 97 H 16 141/70 100 05/25/22 20:00 97.5 F 92 H 18 121/77 100 05/25/22 19:25 97.5 F 90 19 117/76 100 05/25/22 19:23 95 H 12 98 05/25/22 19:19 97.5 F 107 H 125/63 97 05/25/22 18:57 93 H 128/69 98 05/25/22 18:36 98 05/25/22 17:55 89 19 124/68 98 05/25/22 16:48 87 19 119/61 98 05/25/22 15:58 93 H 21 117/60 98 05/25/22 15:00 93 H 21 118/60 98 05/25/22 14:30 96 H 12 98 05/25/22 13:56 89 12 120/61 97 05/25/22 13:00 85 12 119/63 98 Home Medications Medication Instructions Recorded Confirmed Last Taken Type Amiodarone HCl 200 mg PO DAILY 05/20/22 05/20/22 Unknown History Current Medications Generic Name Dose Route Start Last Admin Trade Name Ryanq PRN Reason Stop Dose Admin Albuterol Sulfate 1 puff 05/20/22 12:22 Albuterol Common Canister Inhaler 06/19/22 12:21 Q4HPRN PRN SHORTNESS OF BREATH/WHEEZING Albuterol Sulfate 2.5 mg 05/20/22 12:22 05/21/22 13:57 Albuterol Sulfate 2.5 Mg/3 Ml Neb 06/19/22 12:21 2.5 mg Q4H PRN PRN Administration SHORTNESS OF BREATH/WHEEZING Albuterol/Ipratropium 3 ml 05/20/22 03:18 05/26/22 10:31 Ipratropium/Albuterol Sulfate 3 Ml Ampul.Neb IH 06/19/22 03:17 3 ml Q4HRT VERNA Administration Artificial Tears 1 gm 05/21/22 22:00 05/26/22 09:02 Lanolin/Min Oil/Petrolat Wht 3.5 Gm Tube OP 06/20/22 21:59 1 gm BID VERNA Administration Chlorhexidine Gluconate 15 ml 05/21/22 22:10 05/26/22 09:02 Chlorhexidine Gluconate 15 Ml Mouthwash MM 06/20/22 22:09 15 ml BID VERAN Administration Methylprednisolone Sodium 0 mg 05/20/22 06:00 05/26/22 11:00 Succinate 60 mg/ Sterile Water IV 06/19/22 05:59 60 mg 2 ml Q6HT VERNA Administration Docusate Sodium 100 mg 05/20/22 12:22 Docusate Sodium 100 Mg Capsule PO 06/19/22 12:21 DAILY PRN PRN CONSTIPATION Enoxaparin Sodium 80 mg 05/26/22 10:00 05/26/22 09:01 Enoxaparin Sodium 80 Mg/0.8 Ml Syringe SQ 06/23/22 09:59 80 mg BID VERNA Administration Famotidine 20 mg 05/20/22 10:00 05/26/22 09:01 Famotidine 20 Mg/1 Vial IV 06/19/22 09:59 20 mg Q12HT VERNA Administration Haloperidol Lactate 5 mg 05/21/22 12:17 05/21/22 12:25 Haloperidol Lactate 5 Mg/Ml Vial IV 06/20/22 12:16 5 mg Q8H PRN PRN Administration AGITATION Sodium Chloride 1,000 mls @ 75 mls/hr 05/20/22 03:18 05/26/22 05:31 Sodium Chloride 0.9% 1000 Ml IV 06/19/22 03:17 75 mls/hr .[id number] VERNA Administration Propofol 100 mls @ 2.019 mls/hr 05/21/22 19:50 05/26/22 11:55 Propofol 1000 Mg/100 Ml Bottle IV 06/20/22 19:49 20 mcg/kg/min .Q24H PRN 8.076 mls/hr SEDATION FOR VENT Administration Protocol 5 MCG/KG/MIN Fentanyl Citrate 1,500 mcg/ 150 mls @ 6.7 mls/hr 05/22/22 09:00 05/26/22 08:11 Sodium Chloride IV 06/21/22 08:59 0.75 mcg/kg/hr .[id number] PRN 5.025 mls/hr PAIN Titration Protocol 1 MCG/KG/HR Amiodarone HCl/Dextrose 360 mg in 200 mls @ 17 mls/hr 05/23/22 08:15 05/26/22 06:53 Nexterone 360 Mg/200 Ml Bag IV 06/22/22 08:14 16.7 mls/hr .[id number] VERNA 16.7 mls/hr Administration Protocol Levofloxacin/Dextrose 500 mg in 100 mls @ 100 mls/hr 05/24/22 22:00 05/25/22 21:54 Levofloxacin 500mg/100ml D5w IV 06/22/22 19:59 100 mls/hr QPM VERNA Administration Insulin Human Lispro 0 unit 05/20/22 09:51 05/26/22 04:16 Insulin Lispro 1 Unit SQ 06/19/22 09:50 2 unit UD PRN Administration HYPERGLYCEMIA Lorazepam 2 mg 05/22/22 08:35 05/26/22 04:22 Lorazepam 2 Mg/1 Ml 2 Mg Vial IV 06/21/22 08:34 2 mg Q4HPRN PRN Administration AGITATION Mupirocin 1 gm 05/22/22 10:00 05/26/22 09:01 Mupirocin 22 Gm Tube Ointment TP 06/20/22 22:14 1 gm BID VERNA Administration Discontinued Medications Generic Name Dose Route Start Last Admin Trade Name Freq PRN Reason Stop Dose Admin Albuterol/Ipratropium 3 ml 05/20/22 15:00 Ipratropium/Albuterol Sulfate 3 Ml Ampul.Neb IH 06/19/22 14:59 QIDRT VERNA Amiodarone HCl 200 mg 05/20/22 14:00 05/22/22 10:10 Amiodarone Hcl 200 Mg Tab PO 06/19/22 13:59 Not Given DAILY VERNA Apixaban 5 mg 05/20/22 14:00 05/21/22 22:55 Apixaban 2.5 Mg Tablet PO 06/19/22 13:59 5 mg BID VERNA Administration Aspirin 325 mg 05/20/22 23:58 Aspirin 325 Mg Tablet.Ec PO 05/20/22 23:59 STAT ONE Aspirin 324 mg 05/20/22 00:04 05/20/22 00:06 Aspirin 81 Mg Tab.Chew PO 05/20/22 00:05 324 mg STAT ONE Administration Aspirin Confirm 05/20/22 00:03 Aspirin 81 Mg Tab.Chew Administered 05/20/22 00:04 Dose 324 mg .ROUTE .STK-MED ONE Cisatracurium Besylate 10 mg 05/21/22 20:00 05/21/22 20:02 Cisatracurium 20 Mg/10 Ml Vial 0.15 mg/kg (10 mg) 05/21/22 20:01 10 mg IV Administration STAT STA Methylprednisolone Sodium 0 mg 05/19/22 23:48 05/20/22 00:00 Succinate 125 mg/ Sterile IV 05/19/22 23:49 125 mg Water 2 ml STAT ONE Administration Diltiazem HCl 5 mg 05/20/22 17:00 05/22/22 21:38 Diltiazem Hcl Iv 5 Mg/Ml Vial IV 06/19/22 16:59 Not Given Q12H [facility] Diltiazem HCl Confirm 05/21/22 06:26 Diltiazem Hcl Iv 5 Mg/Ml Vial Administered 05/21/22 06:27 Dose 50 mg IV .STK-MED ONE Doxycycline Hyclate Confirm 05/20/22 00:03 Doxycycline Hyclate 100 Mg/Vial Injection Administered 05/20/22 00:04 Dose 100 mg IV .STK-MED ONE Doxycycline Hyclate 100 mg 05/20/22 10:00 Doxycycline Hyclate 100 Mg Tablet PO 06/19/22 09:59 BID [facility] Enoxaparin Sodium 40 mg 05/22/22 10:00 05/23/22 10:19 Enoxaparin Sodium 40 Mg/0.4 Ml Syringe SQ 06/21/22 09:59 40 mg DAILY VERNA Administration Enoxaparin Sodium 70 mg 05/24/22 10:00 05/25/22 21:35 Enoxaparin Sodium 80 Mg/0.8 Ml Syringe SQ 06/23/22 09:59 70 mg BID VERNA Administration Furosemide 40 mg 05/20/22 10:00 05/22/22 13:48 Furosemide 40 Mg/4 Ml Vial IV 06/19/22 09:59 Not Given Q12H VERNA Haloperidol Lactate 5 mg 05/24/22 07:00 05/24/22 09:44 Haloperidol Lactate 5 Mg/Ml Vial IV 05/24/22 07:01 Not Given ONCE ONE Hydroxyzine HCl 25 mg 05/20/22 15:00 05/22/22 17:18 Hydroxyzine Hcl 25 Mg Tablet PO 06/19/22 14:59 Not Given TID VENRA Sodium Chloride 1,000 mls @ 999 mls/hr 05/19/22 23:48 05/20/22 02:54 Sodium Chloride 0.9% 1000 Ml IV 05/20/22 00:48 Infused .Q1H1M STA Infusion Azithromycin 500 mg in 250 mls @ 250 mls/hr 05/19/22 23:48 05/20/22 00:01 Zithromax 500 Mg/ 250 Ml Nacl Premix IV 05/20/22 00:47 Not Given STAT STA Doxycycline Hyclate 100 mg/ 100 mls @ 100 mls/hr 05/20/22 10:00 05/20/22 00:12 Dextrose IV 06/19/22 09:59 100 mls/hr Q12HT VERNA Administration Azithromycin Confirm 05/19/22 23:59 Zithromax 500 Mg/ 250 Ml Nacl Premix Administered 05/20/22 00:00 Dose 500 mg in 250 mls @ ud IV .STK-MED ONE Sodium Chloride Confirm 05/19/22 23:59 Sodium Chloride 0.9% 1000 Ml Administered 05/20/22 00:00 Dose 1,000 mls @ ud .ROUTE .STK-MED ONE Dextrose Confirm 05/20/22 00:03 D5w 100ml Mini Bag 100 Ml Administered 05/20/22 00:04 Dose 100 mls @ ud IV .STK-MED ONE Potassium Chloride 100 mls @ 50 mls/hr 05/21/22 07:00 05/21/22 23:35 Potassium Chloride 20 Meq In Water 100ml IV 05/21/22 14:59 50 mls/hr Q2H VERNA Administration Cisatracurium Besylate 200 mg/ 200 mls @ 8.076 mls/hr 05/21/22 20:11 05/22/22 10:40 Dextrose IV 06/20/22 20:10 0 mcg/kg/min .Q24H PRN 0 mls/hr PARALYSIS Titration Protocol 2 MCG/KG/MIN Potassium Chloride Confirm 05/21/22 23:33 Potassium Chloride 20 Meq In Water 100ml Administered 05/21/22 23:34 Dose 100 mls @ ud IV .STK-MED ONE Fentanyl Citrate 1,500 mcg/ 150 mls @ ud 05/22/22 09:00 Sodium Chloride IV 05/22/22 09:01 .STK-MED ONE Sodium Chloride 1,000 mls @ 250 mls/hr 05/22/22 08:33 05/22/22 08:57 Sodium Chloride 0.9% 1000 Ml IV 05/22/22 12:32 250 mls/hr .Q4H STA Administration Sodium Chloride Confirm 05/22/22 09:21 Sodium Chloride 0.9% 1000 Ml Administered 05/22/22 09:22 Dose 1,000 mls @ ud .ROUTE .STK-MED ONE Sodium Chloride Confirm 05/22/22 09:25 Sodium Chloride 0.9% 500 Ml Administered 05/22/22 09:26 Dose 500 mls @ ud IV .STK-MED ONE Amiodarone HCl/Dextrose 360 mg in 200 mls @ 33 mls/hr 05/22/22 10:45 05/23/22 05:56 Nexterone 360 Mg/200 Ml Bag IV 06/21/22 10:44 Not Given .Q6H4M VERNA Protocol Levofloxacin/Dextrose 500 mg in 100 mls @ 100 mls/hr 05/23/22 20:00 05/23/22 19:37 Levofloxacin 500mg/100ml D5w IV 06/22/22 19:59 100 mls/hr Q24H10 VERNA Administration Amiodarone HCl 150 mg/ 103 mls @ 618 mls/hr 05/26/22 07:40 05/26/22 07:59 Dextrose IV 05/26/22 07:49 618 mls/hr STAT ONE Administration Protocol Ketamine HCl 20 mg 05/21/22 19:50 05/21/22 19:51 Ketamine Hcl 50 Mg/Ml IV 05/21/22 19:51 20 mg STAT ONE Administration Ketamine HCl 20 mg 05/21/22 19:53 05/21/22 19:55 Ketamine Hcl 50 Mg/Ml IV 05/21/22 19:54 20 mg STAT ONE Administration Lorazepam 2 mg 05/20/22 01:29 05/20/22 02:24 Lorazepam 2 Mg/1 Ml 2 Mg Vial IV 05/20/22 01:30 2 mg STAT ONE Administration Lorazepam Confirm 05/20/22 02:20 Lorazepam 2 Mg/1 Ml 2 Mg Vial Administered 05/20/22 02:21 Dose 2 mg .ROUTE .STK-MED ONE Lorazepam 1 mg 05/20/22 07:40 05/21/22 13:01 Lorazepam 2 Mg/1 Ml 2 Mg Vial IV 06/19/22 07:39 1 mg Q6H PRN PRN Administration ANXIETY Methylprednisolone Sodium Succinate Confirm 05/19/22 23:59 Methylprednis Sod Succ 125 Mg/2 Ml Vial Administered 05/20/22 00:00 Dose 125 mg .ROUTE .STK-MED ONE Methylprednisolone Sodium Succinate Confirm 05/20/22 06:10 Methylprednis Sod Succ 125 Mg/2 Ml Vial Administered 05/20/22 06:11 Dose 125 mg .ROUTE .STK-MED ONE Methylprednisolone Sodium Succinate Confirm 05/21/22 17:14 Methylprednis Sod Succ 125 Mg/2 Ml Vial Administered 05/21/22 17:15 Dose 125 mg .ROUTE .STK-MED ONE Methylprednisolone Sodium Succinate Confirm 05/25/22 15:47 Methylprednis Sod Succ 125 Mg/2 Ml Vial Administered 05/25/22 15:48 Dose 125 mg .ROUTE .STK-MED ONE Metoprolol Tartrate 50 mg 05/20/22 14:00 05/22/22 10:10 Metoprolol Tartrate 50 Mg Tablet PO 06/19/22 13:59 Not Given DAILY VERNA Morphine Sulfate Confirm 05/21/22 19:10 Morphine Sulfate 2 Mg/Ml Inj Administered 05/21/22 19:11 Dose 2 mg .ROUTE .STK-MED ONE Morphine Sulfate 1 mg 05/21/22 19:13 05/21/22 19:14 Morphine Sulfate 2 Mg/Ml Inj IV 05/21/22 19:14 1 mg STAT ONE Administration Mupirocin 1 gm 05/21/22 22:15 05/21/22 22:28 Mupirocin 22 Gm Tube Ointment TP 06/20/22 22:14 1 gm UD VERNA Administration Non-Formulary Medication 1 each 05/22/22 09:23 05/22/22 11:42 Pharmacy Dosing Request 05/22/22 09:24 Not Given STAT ONE Olanzapine 10 mg 05/21/22 10:00 05/21/22 09:38 Olanzapine 5 Mg/Tab Orally Disintegrating PO 05/21/22 10:01 10 mg STAT ONE Administration Olanzapine 5 mg 05/21/22 22:00 05/21/22 23:02 Olanzapine 5 Mg/Tab Orally Disintegrating PO 06/20/22 21:59 Not Given QHS VERNA Potassium Bicarbonate 25 meq 05/22/22 02:15 05/22/22 06:13 Potassium Bicarbonate 25 Meq Tab PO 05/22/22 06:16 25 meq Q2H VERNA Administration Propofol 100 mg 05/21/22 19:50 05/21/22 21:16 Propofol 10 Mg/Ml 20ml Vial 1.5 mg/kg (100 mg) 05/21/22 19:51 Not Given IV STAT STA Quetiapine Fumarate 50 mg 05/21/22 14:18 05/21/22 14:45 Quetiapine Fumarate 25 Mg Tablet PO 05/21/22 14:19 50 mg NOW ONE Administration Quetiapine Fumarate 50 mg 05/21/22 22:00 05/22/22 09:58 Quetiapine Fumarate 25 Mg Tablet PO 06/20/22 21:59 Not Given BID VERNA Sterile Water Confirm 05/19/22 23:59 Water For Injection,Sterile 10 Ml Vial Administered 05/20/22 00:00 Dose 10 ml IJ .STK-MED ONE Sterile Water Confirm 05/20/22 06:10 Water For Injection,Sterile 10 Ml Vial Administered 05/20/22 06:11 Dose 10 ml IJ .STK-MED ONE Intake & Output (Last 24 hours) 05/24/22 05/25/22 05/26/22 05/27/22 11:59 11:59 11:59 11:59 Intake Total 4866 2561 3835 Output Total 1200 1000 1400 Balance 1466 1561 2435 Weight 70.2 kg 72.4 kg 72.4 kg Laboratory Results (Last 24 hours) 05/26/22 05/26/22 05/26/22 10:20 10:20 04:57 WBC RBC Hgb Hct MCV MCH MCHC RDW Plt Count MPV Puncture Site pCO2 pO2 Base Excess O2 Saturation ABG pH ABG HCO3 ABG O2 Sat (Measured) A-a Gradient a/A Ratio Hemoglobin Carboxyhemoglobin Methemoglobin Potassium 4.6 Temperature POC O2 Flow Rate Tidal Volume PEEP Sodium 146 H Chloride 111 H Carbon Dioxide 34 H Anion Gap 5.9 BUN 40 H Creatinine 0.86 Estimated GFR > 60.0 Glucose 226 H POC Glucometer Calcium 7.8 L Magnesium 2.6 H Total Bilirubin 0.40 Direct Bilirubin 0.4 AST 31 ALT 54 H Alkaline Phosphatase 86 Troponin I 0.165 H* Serum Total Protein 5.9 L Albumin 2.9 L 05/26/22 05/26/22 05/26/22 04:57 04:50 04:12 WBC 9.1 RBC 3.51 L Hgb 9.2 L Hct 30.7 L MCV 87.5 MCH 26.2 MCHC 30.0 L RDW 17.0 H Plt Count 209 MPV 9.9 Puncture Site ART LINE pCO2 50 H pO2 113 H Base Excess 7.0 H O2 Saturation 94.6 ABG pH 7.42 ABG HCO3 32.4 H* ABG O2 Sat (Measured) 99.8 A-a Gradient 110 a/A Ratio 0.51 Hemoglobin 9.5 Carboxyhemoglobin 4.6 Methemoglobin 0.6 L Potassium 4.6 Temperature 37.0 POC O2 Flow Rate 40 Tidal Volume 600 PEEP 8.0 Sodium Chloride Carbon Dioxide Anion Gap BUN Creatinine Estimated GFR Glucose POC Glucometer 215 H Calcium Magnesium Total Bilirubin Direct Bilirubin AST ALT Alkaline Phosphatase Troponin I Serum Total Protein Albumin 05/25/22 05/25/22 05/25/22 23:08 19:51 06:37 WBC RBC Hgb Hct MCV MCH MCHC RDW Plt Count MPV Puncture Site pCO2 pO2 Base Excess O2 Saturation ABG pH ABG HCO3 ABG O2 Sat (Measured) A-a Gradient a/A Ratio Hemoglobin Carboxyhemoglobin Methemoglobin Potassium Temperature POC O2 Flow Rate Tidal Volume PEEP Sodium Chloride Carbon Dioxide Anion Gap BUN Creatinine Estimated GFR Glucose POC Glucometer 256 H 331 H 174 H Calcium Magnesium Total Bilirubin Direct Bilirubin AST ALT Alkaline Phosphatase Troponin I Serum Total Protein Albumin 05/24/22 05/24/22 23:51 23:49 WBC RBC Hgb Hct MCV MCH MCHC RDW Plt Count MPV Puncture Site pCO2 pO2 Base Excess O2 Saturation ABG pH ABG HCO3 ABG O2 Sat (Measured) A-a Gradient a/A Ratio Hemoglobin Carboxyhemoglobin Methemoglobin Potassium Temperature POC O2 Flow Rate Tidal Volume PEEP Sodium Chloride Carbon Dioxide Anion Gap BUN Creatinine Estimated GFR Glucose POC Glucometer 213 H 219 H Calcium Magnesium Total Bilirubin Direct Bilirubin AST ALT Alkaline Phosphatase Troponin I Serum Total Protein Albumin Orders (Last 24 hours) Category Date Time Status CHEST 1 VIEW (PORTABLE) Routine Exams 05/26/22 08:10 Taken Portable Chest [CHEST 1 VIEW (PORTABLE)] Routine Exams 05/27/22 05:00 Ordered ABG [ARTERIAL BLOOD GASES] AM.LAB Lab 05/27/22 04:00 Ordered ABG [ARTERIAL BLOOD GASES] DAILY Lab 05/26/22 04:50 Results ABG [ARTERIAL BLOOD GASES] DAILY Lab 05/27/22 05:00 Ordered ABG [ARTERIAL BLOOD GASES] DAILY Lab 05/28/22 05:00 Ordered ABG [ARTERIAL BLOOD GASES] Routine Lab 05/26/22 08:00 Ordered CBC DAILY Lab 05/26/22 04:57 Completed CBC DAILY Lab 05/27/22 22:15 Ordered CBC W DIFF AM.LAB Lab 05/27/22 04:00 Ordered CMP AM.LAB Lab 05/27/22 04:00 Ordered CMP/HFII DAILY Lab 05/26/22 04:57 Completed CMP/HFII DAILY Lab 05/27/22 22:15 Ordered MAG [MAGNESIUM] Stat Lab 05/26/22 10:20 Completed POCT GLUCOSE Stat Lab 05/25/22 19:51 Completed POCT GLUCOSE Stat Lab 05/25/22 23:08 Completed POCT GLUCOSE Stat Lab 05/26/22 04:12 Completed TROPONIN Stat Lab 05/26/22 10:20 Completed Amiodarone HCl 150 mg/3 ml [Cordarone 150 MG/3 ML Med 05/26/22 07:40 Discontinued Injection] 150 mg D5w 100 ml [D5w 100ML Mini Bag 100 ML] 100 ml IV STAT Enoxaparin Sodium [Enoxaparin Sodium] Med 05/26/22 10:00 Active 80 mg SQ BID Methylprednis Sod Succ 125 mg* [solu-MEDROL] Med 05/25/22 15:47 Discontinued 125 mg .ROUTE .STK-MED ONE Patient Care Notes (Last 24 hours) 05/26/22 11:25 Nursing Note by Ysabel Martinez spoke with pt's niece, kofi, by phone and updated on this morning's attempt at extubation. she is aware of the gravity of pt's situation and says if his condition continues to be hopeless she wants to be able to have pt home with hospice. she is ok with dr flores's plan of waiting til saturday to try and extubate again. Initialized on 05/26/22 11:25 - END OF NOTE 05/26/22 10:49 Nursing Note by Ysabel Martinez dr at bedside rounding on pt. labs ordered fro am. Initialized on 05/26/22 10:49 - END OF NOTE 05/26/22 10:14 Nursing Note by Ysabel Martinez dr on phone requesting update. updated on this morning's events and orders received to keep pt sedated, and run a troponin and magnesium level Initialized on 05/26/22 10:14 - END OF NOTE 05/26/22 08:10 Nursing Note by Ysabel Martinez bp 92/63, fentanyl decreased to 0.75mcg/kg/hr and diprivan decreased to 20mcg/kg/min. Initialized on 05/26/22 08:10 - END OF NOTE 05/26/22 07:35 (created 05/26/22 07:43) Nursing Note by Ysabel Martinez pt having runs of vtach. placed back on cmv, diprivan restarted at 40mcg/kg/min, and fentanyl increased to 1.5mcg/kg/hr. dr flores updated and new order given for amiodorone bolus of 150mg. Initialized on 05/26/22 07:43 - END OF NOTE 05/26/22 07:15 (created 05/26/22 08:05) Nursing Note by Ysabel Martinez pt becoming more restless, tachycardic and hypertensive. Initialized on 05/26/22 08:05 - END OF NOTE 05/26/22 07:05 (created 05/26/22 07:15) Nursing Note by Ysabel Martinez in cpap per contact acid plant operator helper Initialized on 05/26/22 07:15 - END OF NOTE 05/26/22 00:20 Nursing Note by Eulalio Griggs pt resting comfortably at this time. pt repositioned for comfort and to shift weight at this time. will cont to closely monitor. Initialized on 05/26/22 00:20 - END OF NOTE 02/17/23 23:21 Nursing Note by Eulalio Griggs 1900 Received pt lying in bed on ventilator. vital signs stable on bedside monitor. pt calm, tolerating mech vent well at this time. puente cath noted. art line zeroed at this time. Check iv pump and medication settings. Ensured fentanyl, propofol, ns, amnio lines were labeled. 0 pt repositioned every 2 hours and prn for comfort. bilateral heel protect ors applied. 0 oral suctioned pt. pt tolerated well. updated RT and developed alternating oral care and clustering care. 1999 pt resting comfortable at this time. bis 64-70 at this time. 2014 repositioned pt legs on pillows . 2099 Repositioned pt, every 2 hours and prn. 0 oral suctioned pt, pt tolerated well. 2200 pt comfortable at this time. bis 64-68. 0 repositioned pt at this time. pt sedated and appears comfortable at this time. 2300 pt resting comfortable, will cont to monitor 2330 quality analyst/technical writer and rt at . pt eyes open to tactile stimuli. pt resting comfortable at this time. Initialized on 05/25/22 23:21 - END OF NOTE 05/25/22 19:18 Nutrition Note by Kia Lyon F/u NOte: Note TF at goal rate of 50cc/hour; pt tolerating well; no residual. Labs 05/25= BUN 40, glu 218, alb 3.0, hgb 9.1, hct 29.6; +fluid balance 1092mls. weight 05/24= 72.4kg. Will con't to monitor and f/u prn. T.BRUCE Lyon Initialized on 05/25/22 19:18 - END OF NOTE 05/25/22 15:45 Nursing Note by Ysabel Martinez dr's CATALYST RECOVERY OPERATOR at bedside rounding on pt. plan to wean sedation in am for cpap trial. Initialized on 05/25/22 15:45 - END OF NOTE Code(s): J96.21 - ACUTE AND CHRONIC RESPIRATORY FAILURE WITH HYPOXIA (2) Acute on chronic diastolic congestive heart failure, NYHA class 4 Current Visit: Yes Status: Acute Code(s): I50.33 - ACUTE ON CHRONIC DIASTOLIC (CONGESTIVE) HEART FAILURE (3) COPD exacerbation Current Visit: Yes Status: Acute Code(s): J44.1 - CHRONIC OBSTRUCTIVE PULMONARY DISEASE W (ACUTE) EXACERBATION (4) Alcoholic brain degeneration Current Visit: Yes Status: Acute Code(s): F10.20 - ALCOHOL DEPENDENCE, UNCOMPLICATED; G31.2 - DEGENERATION OF NERVOUS SYSTEM DUE TO ALCOHOL (5) Delirium due to multiple etiologies Current Visit: Yes Status: Acute Code(s): F05 - DELIRIUM DUE TO KNOWN PHYSIOLOGICAL CONDITION
--- NOTE | 2022-05-26 12:28 | PCM.NOTE ---
Date and Time: 05/26/22 1227 Subjective Assessment: intubated. no significant changes since yesterday - Review of Systems All Other Systems: Unable due to condition Objective Exam General Appearance: mild distress Skin Exam: normal color Eye Exam: PERRL Ears, Nose, Throat Exam: normal ENT inspection Neck Exam: normal inspection Respiratory Exam: diminished breath sounds Cardiovascular Exam: regular rate/rhythm Gastrointestinal/Abdomen Exam: soft OBJECTIVE DATA Vital Signs: Vital Signs - 24 hr Temp Pulse Resp BP Pulse Ox 05/26/22 11:58 94 H 12 123/63 97 05/26/22 11:33 89 05/26/22 10:59 103 H 12 140/68 100 05/26/22 10:49 93 H 12 100 05/26/22 10:00 88 12 128/65 98 05/26/22 09:00 91 H 15 121/67 98 05/26/22 08:00 112 H 14 104/61 95 05/26/22 07:16 126 H 05/26/22 07:09 108 H 12 100 05/26/22 07:00 97.8 F 90 12 125/67 99 05/26/22 05:55 97.4 F 87 14 125/64 05/26/22 05:00 90 14 121/61 05/26/22 04:22 105 H 18 05/26/22 04:19 96 H 18 136/69 100 05/26/22 03:56 97.7 F 88 18 137/70 100 05/26/22 03:50 97 H 12 98 05/26/22 02:56 84 16 130/69 100 05/26/22 02:00 84 18 131/69 100 05/26/22 01:29 87 15 126/64 05/26/22 00:59 90 15 126/65 05/26/22 00:48 15 05/26/22 00:31 93 H 12 123/63 05/26/22 00:00 97 F 89 12 121/63 98 05/25/22 23:32 93 H 05/25/22 23:31 93 H 12 128/71 100 05/25/22 23:09 96 H 12 98 05/25/22 22:59 97.1 F 102 H 14 131/69 100 05/25/22 22:21 101 H 16 131/76 05/25/22 21:56 97 F 97 H 17 135/72 05/25/22 21:27 94 H 14 126/64 05/25/22 21:00 97.5 F 92 H 16 128/64 100 05/25/22 20:31 97.5 F 97 H 16 141/70 100 05/25/22 20:00 97.5 F 92 H 18 121/77 100 05/25/22 19:25 97.5 F 90 19 117/76 100 05/25/22 19:23 95 H 12 98 05/25/22 19:19 97.5 F 107 H 125/63 97 05/25/22 18:57 93 H 128/69 98 05/25/22 18:36 98 05/25/22 17:55 89 19 124/68 98 05/25/22 16:48 87 19 119/61 98 05/25/22 15:58 93 H 21 117/60 98 05/25/22 15:00 93 H 21 118/60 98 05/25/22 14:30 96 H 12 98 05/25/22 13:56 89 12 120/61 97 05/25/22 13:00 85 12 119/63 98 Pain Assessment - Last Documented Pain Intensity 0 Pain Scale Used [facility] Intake and Output: Intake & Output 05/24/22 05/25/22 05/26/22 05/27/22 11:59 11:59 11:59 11:59 Intake Total 2666 2561 3835 Output Total 1200 1000 1400 Balance 1466 1561 7525 Weight 70.2 kg 72.4 kg 72.4 kg Lab Results: Lab Results-Last 24 Hours 05/24/22 05/24/22 05/25/22 Range/Units 23:49 23:51 06:37 WBC (4.0-10.5) x10^3/uL RBC (4.1-5.6) x10^6/uL Hgb (12.5-18.0) g/dL Hct (42-50) % MCV (78-100) fL MCH (26-32) pg MCHC (32-36) g/dL RDW (11.5-14.0) % Plt Count (150-450) x10^3/uL MPV (7.5-11.0) fL Puncture Site pCO2 (35-45) mmHg pO2 (75-100) mmHg Base Excess (-2.0-2.0) O2 Saturation (94-100) g/dF ABG pH (7.35-7.45) ABG HCO3 (22-28) ABG O2 Sat (Measured) (95-100) % Clay Test A-a Gradient a/A Ratio Hemoglobin Carboxyhemoglobin (0.0-6.9) % THgb Methemoglobin (1.4-1.5) % Potassium (3.5-5.1) Temperature C POC O2 Flow Rate % Tidal Volume cc PEEP cmH2O Sodium (137-145) mmol/L Chloride (98-107) mmol/L Carbon Dioxide (22-30) mmol/L Anion Gap (5-15) MEQ/L BUN (9-20) mg/dL Creatinine (0.66-1.25) mg/dL Estimated GFR ML/MIN Glucose (74-106) mg/dL POC Glucometer 219 H 213 H 174 H (74 to 106) mg/dL Calcium (8.4-10.2) mg/dL Magnesium (1.6-2.3) mg/dL Total Bilirubin (0.2-1.3) mg/dL Direct Bilirubin (0.0-0.4) mg/dL AST (17-59) U/L ALT (0-50) U/L Alkaline Phosphatase (38-126) U/L Troponin I (0.000-0.034) ng/mL Serum Total Protein (6.3-8.2) g/dL Albumin (3.5-5.0) g/dL 05/25/22 05/25/22 05/26/22 Range/Units 19:51 23:08 04:12 WBC (4.0-10.5) x10^3/uL RBC (4.1-5.6) x10^6/uL Hgb (12.5-18.0) g/dL Hct (42-50) % MCV (78-100) fL MCH (26-32) pg MCHC (32-36) g/dL RDW (11.5-14.0) % Plt Count (150-450) x10^3/uL MPV (7.5-11.0) fL Puncture Site pCO2 (35-45) mmHg pO2 (75-100) mmHg Base Excess (-2.0-2.0) O2 Saturation (94-100) g/dF ABG pH (7.35-7.45) ABG HCO3 (22-28) ABG O2 Sat (Measured) (95-100) % Clay Test A-a Gradient a/A Ratio Hemoglobin Carboxyhemoglobin (0.0-6.9) % THgb Methemoglobin (1.4-1.5) % Potassium (3.5-5.1) Temperature C POC O2 Flow Rate % Tidal Volume cc PEEP cmH2O Sodium (137-145) mmol/L Chloride (98-107) mmol/L Carbon Dioxide (22-30) mmol/L Anion Gap (5-15) MEQ/L BUN (9-20) mg/dL Creatinine (0.66-1.25) mg/dL Estimated GFR ML/MIN Glucose (74-106) mg/dL POC Glucometer 331 H 256 H 215 H (74 to 106) mg/dL Calcium (8.4-10.2) mg/dL Magnesium (1.6-2.3) mg/dL Total Bilirubin (0.2-1.3) mg/dL Direct Bilirubin (0.0-0.4) mg/dL AST (17-59) U/L ALT (0-50) U/L Alkaline Phosphatase (38-126) U/L Troponin I (0.000-0.034) ng/mL Serum Total Protein (6.3-8.2) g/dL Albumin (3.5-5.0) g/dL 05/26/22 05/26/22 05/26/22 Range/Units 04:50 04:57 04:57 WBC 9.1 (4.0-10.5) x10^3/uL RBC 3.51 L (4.1-5.6) x10^6/uL Hgb 9.2 L (12.5-18.0) g/dL Hct 30.7 L (42-50) % MCV 87.5 (78-100) fL MCH 26.2 (26-32) pg MCHC 30.0 L (32-36) g/dL RDW 17.0 H (11.5-14.0) % Plt Count 209 (150-450) x10^3/uL MPV 9.9 (7.5-11.0) fL Puncture Site ART LINE pCO2 50 H (35-45) mmHg pO2 113 H (75-100) mmHg Base Excess 7.0 H (-2.0-2.0) O2 Saturation 94.6 (94-100) g/dF ABG pH 7.42 (7.35-7.45) ABG HCO3 32.4 H* (22-28) ABG O2 Sat (Measured) 99.8 (95-100) % Clay Test Pending A-a Gradient 110 a/A Ratio 0.51 Hemoglobin 9.5 Carboxyhemoglobin 4.6 (0.0-6.9) % THgb Methemoglobin 0.6 L (1.4-1.5) % Potassium 4.6 4.6 (3.5-5.1) Temperature 37.0 C POC O2 Flow Rate 40 % Tidal Volume 600 cc PEEP 8.0 cmH2O Sodium 146 H (137-145) mmol/L Chloride 111 H (98-107) mmol/L Carbon Dioxide 34 H (22-30) mmol/L Anion Gap 5.9 (5-15) MEQ/L BUN 40 H (9-20) mg/dL Creatinine 0.86 (0.66-1.25) mg/dL Estimated GFR > 60.0 ML/MIN Glucose 226 H (74-106) mg/dL POC Glucometer (74 to 106) mg/dL Calcium 7.8 L (8.4-10.2) mg/dL Magnesium (1.6-2.3) mg/dL Total Bilirubin 0.40 (0.2-1.3) mg/dL Direct Bilirubin 0.4 (0.0-0.4) mg/dL AST 31 (17-59) U/L ALT 54 H (0-50) U/L Alkaline Phosphatase 86 (38-126) U/L Troponin I (0.000-0.034) ng/mL Serum Total Protein 5.9 L (6.3-8.2) g/dL Albumin 2.9 L (3.5-5.0) g/dL 05/26/22 05/26/22 Range/Units 10:20 10:20 WBC (4.0-10.5) x10^3/uL RBC (4.1-5.6) x10^6/uL Hgb (12.5-18.0) g/dL Hct (42-50) % MCV (78-100) fL MCH (26-32) pg MCHC (32-36) g/dL RDW (11.5-14.0) % Plt Count (150-450) x10^3/uL MPV (7.5-11.0) fL Puncture Site pCO2 (35-45) mmHg pO2 (75-100) mmHg Base Excess (-2.0-2.0) O2 Saturation (94-100) g/dF ABG pH (7.35-7.45) ABG HCO3 (22-28) ABG O2 Sat (Measured) (95-100) % Clay Test A-a Gradient a/A Ratio Hemoglobin Carboxyhemoglobin (0.0-6.9) % THgb Methemoglobin (1.4-1.5) % Potassium (3.5-5.1) Temperature C POC O2 Flow Rate % Tidal Volume cc PEEP cmH2O Sodium (137-145) mmol/L Chloride (98-107) mmol/L Carbon Dioxide (22-30) mmol/L Anion Gap (5-15) MEQ/L BUN (9-20) mg/dL Creatinine (0.66-1.25) mg/dL Estimated GFR ML/MIN Glucose (74-106) mg/dL POC Glucometer (74 to 106) mg/dL Calcium (8.4-10.2) mg/dL Magnesium 2.6 H (1.6-2.3) mg/dL Total Bilirubin (0.2-1.3) mg/dL Direct Bilirubin (0.0-0.4) mg/dL AST (17-59) U/L ALT (0-50) U/L Alkaline Phosphatase (38-126) U/L Troponin I 0.165 H* (0.000-0.034) ng/mL Serum Total Protein (6.3-8.2) g/dL Albumin (3.5-5.0) g/dL Radiology Exams: Radiology Procedures Category Date Time Status CHEST 1 VIEW (PORTABLE) DAILY Exams 05/25/22 06:12 Completed CHEST 1 VIEW (PORTABLE) Routine Exams 05/26/22 08:10 Taken Portable Chest [CHEST 1 VIEW (PORTABLE)] Routine Exams 05/27/22 05:00 Ordered Multi-Disciplinary Progress Notes: Multi-Disciplinary Progress Notes 05/25/22 19:18 Nutrition Note by Kia Lyon F/u NOte: Note TF at goal rate of 50cc/hour; pt tolerating well; no residual. Labs 05/25= BUN 40, glu 218, alb 3.0, hgb 9.1, hct 29.6; +fluid balance 1092mls. weight 05/24= 72.4kg. Will con't to monitor and f/u prn. BRUCE Jerome Initialized on 05/25/22 19:18 - END OF NOTE Assessment/Plan (1) Acute and chronic respiratory failure with hypoxia Current Visit: Yes Status: Acute Assessment & Plan: Last Vital Signs Temp 97.8 F 05/26/22 07:00 Pulse 94 H 05/26/22 11:58 Resp 12 05/26/22 11:58 BP 123/63 05/26/22 11:58 Pulse Ox 97 05/26/22 11:58 Allergies Penicillins Allergy (Severe, Verified 05/19/22 23:52) Anaphylactic Reaction Active Medications Albuterol Sulfate (Albuterol Common Canister Inhaler) 1 puff IH Q4HPRN PRN PRN Reason: SHORTNESS OF BREATH/WHEEZING Stop: 06/19/22 12:21 Albuterol Sulfate (Albuterol Sulfate 2.5 Mg/3 Ml Neb) 2.5 mg IH Q4H PRN PRN PRN Reason: SHORTNESS OF BREATH/WHEEZING Stop: 06/19/22 12:21 Last Admin: 05/21/22 13:57 Dose: 2.5 mg Albuterol/Ipratropium (Ipratropium/Albuterol Sulfate 3 Ml Ampul.Neb) 3 ml IH Q4HRT VERNA Stop: 06/19/22 03:17 Last Admin: 05/26/22 10:31 Dose: 3 ml Artificial Tears (Lanolin/Min Oil/Petrolat Wht 3.5 Gm Tube) 1 gm OP BID VERNA Stop: 06/20/22 21:59 Last Admin: 05/26/22 09:02 Dose: 1 gm Chlorhexidine Gluconate (Chlorhexidine Gluconate 15 Ml Mouthwash) 15 ml MM BID VERNA Stop: 06/20/22 22:09 Last Admin: 05/26/22 09:02 Dose: 15 ml Methylprednisolone Sodium Succinate 60 mg/ Sterile Water 2 ml 0 mg IV Q6HT VERNA Stop: 06/19/22 05:59 Last Admin: 05/26/22 11:00 Dose: 60 mg Docusate Sodium (Docusate Sodium 100 Mg Capsule) 100 mg PO DAILY PRN PRN PRN Reason: CONSTIPATION Stop: 06/19/22 12:21 Enoxaparin Sodium (Enoxaparin Sodium 80 Mg/0.8 Ml Syringe) 80 mg SQ BID VERNA Stop: 06/23/22 09:59 Last Admin: 05/26/22 09:01 Dose: 80 mg Famotidine (Famotidine 20 Mg/1 Vial) 20 mg IV Q12HT VERNA Stop: 06/19/22 09:59 Last Admin: 05/26/22 09:01 Dose: 20 mg Haloperidol Lactate (Haloperidol Lactate 5 Mg/Ml Vial) 5 mg IV Q8H PRN PRN PRN Reason: AGITATION Stop: 06/20/22 12:16 Last Admin: 05/21/22 12:25 Dose: 5 mg Sodium Chloride (Sodium Chloride 0.9% 1000 Ml) 1,000 mls @ 75 mls/hr IV .[id number] [facility] Stop: 06/19/22 03:17 Last Admin: 05/26/22 05:31 Dose: 75 mls/hr Propofol (Propofol 1000 Mg/100 Ml Bottle) 100 mls @ 2.019 mls/hr IV .Q24H PRN; Protocol PRN Reason: SEDATION FOR VENT Stop: 06/20/22 19:49 Last Admin: 05/26/22 11:55 Dose: 20 mcg/kg/min, 8.076 mls/hr Fentanyl Citrate 1,500 mcg/ (Sodium Chloride) 150 mls @ 6.7 mls/hr IV .[id number] PRN; Protocol PRN Reason: PAIN Stop: 06/21/22 08:59 Last Titration: 05/26/22 08:11 Dose: 0.75 mcg/kg/hr, 5.025 mls/hr Amiodarone HCl/Dextrose (Nexterone 360 Mg/200 Ml Bag) 360 mg in 200 mls @ 17 mls/hr IV .[id number] VERNA; Protocol Stop: 06/22/22 08:14 Last Admin: 05/26/22 06:53 Dose: 16.7 mls/hr, 16.7 mls/hr Levofloxacin/Dextrose (Levofloxacin 500mg/100ml D5w) 500 mg in 100 mls @ 100 mls/hr IV QPM VERNA Stop: 06/22/22 19:59 Last Admin: 05/25/22 21:54 Dose: 100 mls/hr Insulin Human Lispro (Insulin Lispro 1 Unit) 0 unit SQ UD PRN PRN Reason: HYPERGLYCEMIA Stop: 06/19/22 09:50 Last Admin: 05/26/22 04:16 Dose: 2 unit Lorazepam (Lorazepam 2 Mg/1 Ml 2 Mg Vial) 2 mg IV Q4HPRN PRN PRN Reason: AGITATION Stop: 06/21/22 08:34 Last Admin: 05/26/22 04:22 Dose: 2 mg Mupirocin (Mupirocin 22 Gm Tube Ointment) 1 gm TP BID VERNA Stop: 06/20/22 22:14 Last Admin: 05/26/22 09:01 Dose: 1 gm Intake & Output 05/26/22 05/27/22 11:59 11:59 Intake Total 3835 Output Total 1400 Balance 2435 Weight 72.4 kg Orders 05/26/22 04:50 ABG [ARTERIAL BLOOD GASES] DAILY 05/26/22 08:00 ABG [ARTERIAL BLOOD GASES] Routine 05/26/22 08:10 CHEST 1 VIEW (PORTABLE) Routine 05/27/22 04:00 CBC W DIFF AM.LAB CMP AM.LAB 05/27/22 05:00 ABG [ARTERIAL BLOOD GASES] DAILY 05/28/22 05:00 ABG [ARTERIAL BLOOD GASES] DAILY Lab Tests 05/24/22 05/24/22 05/25/22 23:49 23:51 06:37 WBC RBC Hgb Hct MCV MCH MCHC RDW Plt Count MPV Puncture Site pCO2 pO2 Base Excess O2 Saturation ABG pH ABG HCO3 ABG O2 Sat (Measured) Clay Test A-a Gradient a/A Ratio Hemoglobin Carboxyhemoglobin Methemoglobin Potassium Temperature POC O2 Flow Rate Tidal Volume PEEP Sodium Chloride Carbon Dioxide Anion Gap BUN Creatinine Estimated GFR Glucose POC Glucometer 219 H 213 H 174 H Calcium Magnesium Total Bilirubin Direct Bilirubin AST ALT Alkaline Phosphatase Troponin I Serum Total Protein Albumin 05/25/22 05/25/22 05/26/22 19:51 23:08 04:12 WBC RBC Hgb Hct MCV MCH MCHC RDW Plt Count MPV Puncture Site pCO2 pO2 Base Excess O2 Saturation ABG pH ABG HCO3 ABG O2 Sat (Measured) Clay Test A-a Gradient a/A Ratio Hemoglobin Carboxyhemoglobin Methemoglobin Potassium Temperature POC O2 Flow Rate Tidal Volume PEEP Sodium Chloride Carbon Dioxide Anion Gap BUN Creatinine Estimated GFR Glucose POC Glucometer 331 H 256 H 215 H Calcium Magnesium Total Bilirubin Direct Bilirubin AST ALT Alkaline Phosphatase Troponin I Serum Total Protein Albumin 05/26/22 05/26/22 05/26/22 04:50 04:57 04:57 WBC 9.1 RBC 3.51 L Hgb 9.2 L Hct 30.7 L MCV 87.5 MCH 26.2 MCHC 30.0 L RDW 17.0 H Plt Count 209 MPV 9.9 Puncture Site ART LINE pCO2 50 H pO2 113 H Base Excess 7.0 H O2 Saturation 94.6 ABG pH 7.42 ABG HCO3 32.4 H* ABG O2 Sat (Measured) 99.8 Clay Test Pending A-a Gradient 110 a/A Ratio 0.51 Hemoglobin 9.5 Carboxyhemoglobin 4.6 Methemoglobin 0.6 L Potassium 4.6 4.6 Temperature 37.0 POC O2 Flow Rate 40 Tidal Volume 600 PEEP 8.0 Sodium 146 H Chloride 111 H Carbon Dioxide 34 H Anion Gap 5.9 BUN 40 H Creatinine 0.86 Estimated GFR > 60.0 Glucose 226 H POC Glucometer Calcium 7.8 L Magnesium Total Bilirubin 0.40 Direct Bilirubin 0.4 AST 31 ALT 54 H Alkaline Phosphatase 86 Troponin I Serum Total Protein 5.9 L Albumin 2.9 L 05/26/22 05/26/22 10:20 10:20 WBC RBC Hgb Hct MCV MCH MCHC RDW Plt Count MPV Puncture Site pCO2 pO2 Base Excess O2 Saturation ABG pH ABG HCO3 ABG O2 Sat (Measured) Clay Test A-a Gradient a/A Ratio Hemoglobin Carboxyhemoglobin Methemoglobin Potassium Temperature POC O2 Flow Rate Tidal Volume PEEP Sodium Chloride Carbon Dioxide Anion Gap BUN Creatinine Estimated GFR Glucose POC Glucometer Calcium Magnesium 2.6 H Total Bilirubin Direct Bilirubin AST ALT Alkaline Phosphatase Troponin I 0.165 H* Serum Total Protein Albumin Code(s): J96.21 - ACUTE AND CHRONIC RESPIRATORY FAILURE WITH HYPOXIA (2) Acute on chronic diastolic congestive heart failure, NYHA class 4 Current Visit: Yes Status: Acute Code(s): I50.33 - ACUTE ON CHRONIC DIASTOLIC (CONGESTIVE) HEART FAILURE (3) COPD exacerbation Current Visit: Yes Status: Acute Code(s): J44.1 - CHRONIC OBSTRUCTIVE PULMONARY DISEASE W (ACUTE) EXACERBATION (4) Alcoholic brain degeneration Current Visit: Yes Status: Chronic Code(s): F10.20 - ALCOHOL DEPENDENCE, UNCOMPLICATED; G31.2 - DEGENERATION OF NERVOUS SYSTEM DUE TO ALCOHOL (5) Delirium due to multiple etiologies Current Visit: Yes Status: Resolved Code(s): F05 - DELIRIUM DUE TO KNOWN PHYSIOLOGICAL CONDITION
[2022-05-26] MEDS ORDERED: solu-MEDROL ONE (14:44)
[2022-05-26] MEDS ORDERED: Cordarone 150 MG/3 ML Injection ONE (14:49)
[2022-05-26] MEDS ORDERED: Sodium Chloride 3 ML UD NEBULES IH ONE (15:00)
[2022-05-26] MEDS ORDERED: Sodium Chloride 3 ML UD NEBULES IH PRN (16:07)
--- NOTE | 2022-05-26 20:05 | XRAY ---
Indication: Patient on ventilator. Comparison: One day earlier. Portable chest again demonstrates diffuse bilateral hazy airspace disease worsened in both lung bases. Stable small left effusion. Heart not enlarged. Stable endotracheal tube and orogastric tube in situ. Comment: Preliminary interpretation made by C. No critical discrepancy.
--- NOTE | 2022-05-26 20:07 | XRAY ---
Indication: NG tube placement. Comparison: Taken earlier in the day. Portable chest demonstrates new NG tube tip in stomach. Stable endotracheal tube tip 6 cm above brian. Grossly stable diffuse bilateral hazy airspace disease and small left effusion. Heart not enlarged. Comment: Preliminary interpretation made by [facility]. No critical discrepancy.
[2022-05-26] MEDS: Levofloxacin 500MG/100ML D5W 500 MG/100 ML BAG IV SCH (21:43)
[2022-05-27] MEDS: HUMALOG SQ PRN ×3 (00:26→17:11)
[2022-05-27] MEDS: FENTANYL 500 MCG/10 ML VIAL 1,500 MCG in Sodium Chloride 0.9% 150 ML 120 ML IV PRN (00:27)
[2022-05-27] MEDS: DUONEB 0.5-3 MG/3 ml Neb IH SCH ×6 (03:29→23:01)
[2022-05-27] MEDS: Ativan 2 MG/1 ML VIAL IV PRN (03:36)
[2022-05-27] MEDS: NEXTERONE 360 MG/200 ML BAG 360 MG/200 ML PLAST..BAG IV SCH ×2 (04:45→16:08)
[2022-05-27 05:35] LABS: A-aADO2 116; ABG HEMOGLOBIN 9.7; ABG POTASSIUM 4.4 (3.5-5.1); ABG SITE ART LINE; ARTERIAL BLD GAS O2 SATURATION 98.3 % (95-100); ARTERIAL BLD GAS TIDAL VOLUME 600 cc; ARTERIAL BLOOD GAS BASE EXCESS 8.4 (-2.0-2.0); ARTERIAL BLOOD GAS FIO2 40 %; ARTERIAL BLOOD GAS PCO2 48 mmHg (35-45); ARTERIAL BLOOD GAS PO2 109 mmHg (75-100); ARTERIAL BLOOD GAS pH 7.45 (7.35-7.45); CARBOXYHEMOGLOBIN 5.2 % THgb (0.0-6.9); HCO3- 33.4 (22-28); HGB O2 SAT 92.4 g/dF (94-100); Methhemoglobin 0.9 % (1.4-1.5); paO2 pAO1 0.48
[2022-05-27 05:36] LABS: Hematocrit 30.5 % (42-50); Hemoglobin 9.1 g/dL (12.5-18.0); Mean Cell Volume 87.9 fL (78-100); Mean Corpuscular Hemoglobin 26.2 pg (26-32); Mean Corpuscular Hgb Concent. 29.8 g/dL (32-36); Mean Platelet Volume 9.8 fL (7.5-11.0); Platelet Count 200 x10^3/uL (150-450); Red Blood Count 3.47 x10^6/uL (4.1-5.6); Red Cell Distribution Width 17.2 % (11.5-14.0); White Blood Count 7.8 x10^3/uL (4.0-10.5)
[2022-05-27 05:47] LABS: ALBUMIN 2.7 g/dL (3.5-5.0); ALKALINE PHOSPHATASE 84 U/L (38-126); ANION GAP 5.8 MEQ/L (5-15); BLOOD UREA NITROGEN 38 mg/dL (9-20); CHLORIDE 109 mmol/L (98-107); Calcium 7.8 mg/dL (8.4-10.2); Carbon Dioxide 33 mmol/L (22-30); Creatinine 1 0.75 mg/dL (0.66-1.25); Direct Bilirubin 0.4 mg/dL (0.0-0.4); EST GLOMERULAR FILTRATION RATE > 60.0 ML/MIN; Glucose 364 mg/dL (74-106); Potassium 4.3 mmol/L (3.5-5.1); SGOT/AST 23 U/L (17-59); SGPT/ALT 43 U/L (0-50); SODIUM 144 mmol/L (137-145); Total Protein 5.5 g/dL (6.3-8.2)
[2022-05-27] MEDS: Sodium Chloride 0.9% 1000 ML 1,000 ML IV SCH ×2 (05:50→17:00)
[2022-05-27] MEDS: solu-MEDROL 60 MG, Sterile H2O 10 ml 2 ML IV SCH ×6 (05:51→16:59)
[2022-05-27] MEDS: Propofol 1000 mg/100 ml Bottle 100 ML IV PRN ×2 (05:54→11:17)
--- NOTE | 2022-05-27 06:28 | PCM.NOTE ---
Date and Time: 05/27/22625 Subjective Assessment: condition remain same, Patient is intubated. last 24 hours events noted. - Review of Systems All Other Systems: Unable due to condition Objective Exam General Appearance: moderate distress Skin Exam: normal color Ears, Nose, Throat Exam: normal ENT inspection Respiratory Exam: diminished breath sounds, crackles/rales, rhonchi, wheezing Cardiovascular Exam: irregular, capillary refill >3 sec Gastrointestinal/Abdomen Exam: soft Extremity Exam: inflammation, swelling OBJECTIVE DATA Vital Signs: Vital Signs - 24 hr Temp Pulse Resp BP BP Pulse Ox 05/27/22 06:00 92 H 13 126/60 05/27/22 05:00 97.3 F 88 14 119/58 05/27/22 03:49 85 14 124/60 05/27/22 03:36 97 H 20 120/82 05/27/22 03:29 94 H 12 100 05/27/22 03:00 89 14 124/61 100 05/27/22 02:00 89 17 119/61 100 05/27/22 00:51 97.1 F 85 12 123/61 100 05/26/22 23:56 97.5 F 92 H 12 128/65 100 05/26/22 23:28 89 12 100 05/26/22 23:00 97.5 F 81 12 130/65 100 05/26/22 21:43 94 H 12 119/61 100 05/26/22 20:59 91 H 12 122/61 100 05/26/22 20:00 97.1 F 86 12 126/63 100 05/26/22 19:23 86 16 100 05/26/22 19:22 97.1 F 84 16 100 05/26/22 18:56 82 16 131/67 100 05/26/22 18:00 84 12 133/71 100 05/26/22 17:00 97.7 F 91 H 14 130/67 100 05/26/22 16:58 98 05/26/22 15:54 98 F 94 H 12 133/68 100 05/26/22 15:00 91 H 12 128/70 100 05/26/22 14:00 94 H 12 131/67 98 05/26/22 12:54 88 12 123/67 94 L 05/26/22 11:58 94 H 12 123/63 97 05/26/22 11:33 89 05/26/22 10:59 103 H 12 140/68 100 05/26/22 10:49 93 H 12 100 05/26/22 10:00 88 12 128/65 98 05/26/22 09:00 91 H 15 121/67 98 05/26/22 08:00 112 H 14 104/61 95 05/26/22 07:16 126 H 05/26/22 07:09 108 H 12 100 05/26/22 07:00 97.8 F 90 12 125/67 99 Pain Assessment - Last Documented Pain Intensity 0 Pain Scale Used FLACC Intake and Output: Intake & Output 05/24/22 05/25/22 05/26/22 05/27/22 11:59 11:59 11:59 11:59 Intake Total 2666 2561 3835 3684 Output Total 1200 1000 1400 1600 Balance 1466 1561 0215 2084 Weight 70.2 kg 72.4 kg 72.4 kg Lab Results: Lab Results-Last 24 Hours 05/26/22 05/26/22 05/26/22 Range/Units 10:20 10:20 19:27 WBC (4.0-10.5) x10^3/uL RBC (4.1-5.6) x10^6/uL Hgb (12.5-18.0) g/dL Hct (42-50) % MCV (78-100) fL MCH (26-32) pg MCHC (32-36) g/dL RDW (11.5-14.0) % Plt Count (150-450) x10^3/uL MPV (7.5-11.0) fL Puncture Site pCO2 (35-45) mmHg pO2 (75-100) mmHg Base Excess (-2.0-2.0) O2 Saturation (94-100) g/dF ABG pH (7.35-7.45) ABG HCO3 (22-28) ABG O2 Sat (Measured) (95-100) % Clay Test A-a Gradient a/A Ratio Hemoglobin Carboxyhemoglobin (0.0-6.9) % THgb Methemoglobin (1.4-1.5) % Temperature C POC O2 Flow Rate % Tidal Volume cc PEEP cmH2O Sodium (137-145) mmol/L Potassium (3.5-5.1) mmol/L Chloride (98-107) mmol/L Carbon Dioxide (22-30) mmol/L Anion Gap (5-15) MEQ/L BUN (9-20) mg/dL Creatinine (0.66-1.25) mg/dL Estimated GFR ML/MIN Glucose (74-106) mg/dL POC Glucometer 262 H (74 to 106) mg/dL Calcium (8.4-10.2) mg/dL Magnesium 2.6 H (1.6-2.3) mg/dL Total Bilirubin (0.2-1.3) mg/dL Direct Bilirubin (0.0-0.4) mg/dL AST (17-59) U/L ALT (0-50) U/L Alkaline Phosphatase (38-126) U/L Troponin I 0.165 H* (0.000-0.034) ng/mL Serum Total Protein (6.3-8.2) g/dL Albumin (3.5-5.0) g/dL 05/27/22 05/27/22 05/27/22 Range/Units 00:04 05:26 05:26 WBC 7.8 (4.0-10.5) x10^3/uL RBC 3.47 L (4.1-5.6) x10^6/uL Hgb 9.1 L (12.5-18.0) g/dL Hct 30.5 L (42-50) % MCV 87.9 (78-100) fL MCH 26.2 (26-32) pg MCHC 29.8 L (32-36) g/dL RDW 17.2 H (11.5-14.0) % Plt Count 200 (150-450) x10^3/uL MPV 9.8 (7.5-11.0) fL Puncture Site pCO2 (35-45) mmHg pO2 (75-100) mmHg Base Excess (-2.0-2.0) O2 Saturation (94-100) g/dF ABG pH (7.35-7.45) ABG HCO3 (22-28) ABG O2 Sat (Measured) (95-100) % Clay Test A-a Gradient a/A Ratio Hemoglobin Carboxyhemoglobin (0.0-6.9) % THgb Methemoglobin (1.4-1.5) % Temperature C POC O2 Flow Rate % Tidal Volume cc PEEP cmH2O Sodium 144 (137-145) mmol/L Potassium 4.3 (3.5-5.1) mmol/L Chloride 109 H (98-107) mmol/L Carbon Dioxide 33 H (22-30) mmol/L Anion Gap 5.8 (5-15) MEQ/L BUN 38 H (9-20) mg/dL Creatinine 0.75 (0.66-1.25) mg/dL Estimated GFR > 60.0 ML/MIN Glucose 364 H (74-106) mg/dL POC Glucometer 324 H (74 to 106) mg/dL Calcium 7.8 L (8.4-10.2) mg/dL Magnesium (1.6-2.3) mg/dL Total Bilirubin 0.40 (0.2-1.3) mg/dL Direct Bilirubin 0.4 (0.0-0.4) mg/dL AST 23 (17-59) U/L ALT 43 (0-50) U/L Alkaline Phosphatase 84 (38-126) U/L Troponin I (0.000-0.034) ng/mL Serum Total Protein 5.5 L (6.3-8.2) g/dL Albumin 2.7 L (3.5-5.0) g/dL 05/27/22 Range/Units 05:30 WBC (4.0-10.5) x10^3/uL RBC (4.1-5.6) x10^6/uL Hgb (12.5-18.0) g/dL Hct (42-50) % MCV (78-100) fL MCH (26-32) pg MCHC (32-36) g/dL RDW (11.5-14.0) % Plt Count (150-450) x10^3/uL MPV (7.5-11.0) fL Puncture Site ART LINE pCO2 48 H (35-45) mmHg pO2 109 H (75-100) mmHg Base Excess 8.4 H (-2.0-2.0) O2 Saturation 92.4 L (94-100) g/dF ABG pH 7.45 (7.35-7.45) ABG HCO3 33.4 H* (22-28) ABG O2 Sat (Measured) 98.3 (95-100) % Clay Test Pending A-a Gradient 116 a/A Ratio 0.48 Hemoglobin 9.7 Carboxyhemoglobin 5.2 (0.0-6.9) % THgb Methemoglobin 0.9 L (1.4-1.5) % Temperature 37.0 C POC O2 Flow Rate 40 % Tidal Volume 600 cc PEEP 8.0 cmH2O Sodium (137-145) mmol/L Potassium 4.4 (3.5-5.1) mmol/L Chloride (98-107) mmol/L Carbon Dioxide (22-30) mmol/L Anion Gap (5-15) MEQ/L BUN (9-20) mg/dL Creatinine (0.66-1.25) mg/dL Estimated GFR ML/MIN Glucose (74-106) mg/dL POC Glucometer (74 to 106) mg/dL Calcium (8.4-10.2) mg/dL Magnesium (1.6-2.3) mg/dL Total Bilirubin (0.2-1.3) mg/dL Direct Bilirubin (0.0-0.4) mg/dL AST (17-59) U/L ALT (0-50) U/L Alkaline Phosphatase (38-126) U/L Troponin I (0.000-0.034) ng/mL Serum Total Protein (6.3-8.2) g/dL Albumin (3.5-5.0) g/dL Radiology Exams: Radiology Procedures Category Date Time Status CHEST 1 VIEW (PORTABLE) DAILY Exams 05/25/22 06:12 Completed CHEST 1 VIEW (PORTABLE) Routine Exams 05/26/22 08:10 Completed Portable Chest [CHEST 1 VIEW (PORTABLE)] Routine Exams 05/27/22 05:00 Taken Portable Chest [CHEST 1 VIEW (PORTABLE)] Stat Exams 05/26/22 14:07 Completed Assessment/Plan (1) Acute and chronic respiratory failure with hypoxia Current Visit: Yes Status: Acute Assessment & Plan: Chief Complaint Diagnosis EXAC COPD, AMS Allergies Allergy/AdvReac Type Severity Reaction Status Date / Time Penicillins Allergy Severe Anaphylactic Verified 05/19/22 23:52 Reaction Vital Signs (Last 24 hours) Temp Pulse Resp BP BP Pulse Ox 05/27/22 06:00 92 H 13 126/60 05/27/22 05:00 97.3 F 88 14 119/58 05/27/22 03:49 85 14 124/60 05/27/22 03:36 97 H 20 120/82 05/27/22 03:29 94 H 12 100 05/27/22 03:00 89 14 124/61 100 05/27/22 02:00 89 17 119/61 100 05/27/22 00:51 97.1 F 85 12 123/61 100 05/26/22 23:56 97.5 F 92 H 12 128/65 100 05/26/22 23:28 89 12 100 05/26/22 23:00 97.5 F 81 12 130/65 100 05/26/22 21:43 94 H 12 119/61 100 05/26/22 20:59 91 H 12 122/61 100 05/26/22 20:00 97.1 F 86 12 126/63 100 05/26/22 19:23 86 16 100 05/26/22 19:22 97.1 F 84 16 100 05/26/22 18:56 82 16 131/67 100 05/26/22 18:00 84 12 133/71 100 05/26/22 17:00 97.7 F 91 H 14 130/67 100 05/26/22 16:58 98 05/26/22 15:54 98 F 94 H 12 133/68 100 05/26/22 15:00 91 H 12 128/70 100 05/26/22 14:00 94 H 12 131/67 98 05/26/22 12:54 88 12 123/67 94 L 05/26/22 11:58 94 H 12 123/63 97 05/26/22 11:33 89 05/26/22 10:59 103 H 12 140/68 100 05/26/22 10:49 93 H 12 100 05/26/22 10:00 88 12 128/65 98 05/26/22 09:00 91 H 15 121/67 98 05/26/22 08:00 112 H 14 104/61 95 05/26/22 07:16 126 H 05/26/22 07:09 108 H 12 100 05/26/22 07:00 97.8 F 90 12 125/67 99 Home Medications Medication Instructions Recorded Confirmed Last Taken Type Amiodarone HCl 200 mg PO DAILY 05/20/22 05/20/22 Unknown History Current Medications Generic Name Dose Route Start Last Admin Trade Name Rika PRN Reason Stop Dose Admin Albuterol Sulfate 1 puff 05/20/22 12:22 Albuterol Common Canister Inhaler 06/19/22 12:21 Q4HPRN PRN SHORTNESS OF BREATH/WHEEZING Albuterol Sulfate 2.5 mg 05/20/22 12:22 05/21/22 13:57 Albuterol Sulfate 2.5 Mg/3 Ml Neb 06/19/22 12:21 2.5 mg Q4H PRN PRN Administration SHORTNESS OF BREATH/WHEEZING Albuterol/Ipratropium 3 ml 05/20/22 03:18 05/27/22 03:29 Ipratropium/Albuterol Sulfate 3 Ml Ampul.[facility] 06/19/22 03:17 3 ml Q4HRT VERNA Administration Artificial Tears 1 gm 05/21/22 22:00 05/26/22 21:41 Lanolin/Min Oil/Petrolat Wht 3.5 Gm Tube OP 06/20/22 21:59 1 gm BID VERNA Administration Chlorhexidine Gluconate 15 ml 05/21/22 22:10 05/26/22 21:47 Chlorhexidine Gluconate 15 Ml Mouthwash MM 06/20/22 22:09 15 ml BID VERNA Administration Methylprednisolone Sodium 0 mg 05/20/22 06:00 05/27/22 05:51 Succinate 60 mg/ Sterile Water IV 06/19/22 05:59 60 mg 2 ml Q6HT VERNA Administration Docusate Sodium 100 mg 05/20/22 12:22 Docusate Sodium 100 Mg Capsule PO 06/19/22 12:21 DAILY PRN PRN CONSTIPATION Enoxaparin Sodium 80 mg 05/26/22 10:00 05/26/22 21:40 Enoxaparin Sodium 80 Mg/0.8 Ml Syringe SQ 06/23/22 09:59 80 mg BID VENRA Administration Famotidine 20 mg 05/20/22 10:00 05/26/22 21:40 Famotidine 20 Mg/1 Vial IV 06/19/22 09:59 20 mg Q12HT VERNA Administration Haloperidol Lactate 5 mg 05/21/22 12:17 05/21/22 12:25 Haloperidol Lactate 5 Mg/Ml Vial IV 06/20/22 12:16 5 mg Q8H PRN PRN Administration AGITATION Sodium Chloride 1,000 mls @ 75 mls/hr 05/20/22 03:18 05/27/22 05:50 Sodium Chloride 0.9% 1000 Ml IV 06/19/22 03:17 75 mls/hr .[id number] VERNA Administration Propofol 100 mls @ 2.019 mls/hr 05/21/22 19:50 05/27/22 05:54 Propofol 1000 Mg/100 Ml Bottle IV 06/20/22 19:49 40 mcg/kg/min .Q24H PRN 16.152 mls/hr SEDATION FOR VENT Administration Protocol 5 MCG/KG/MIN Fentanyl Citrate 1,500 mcg/ 150 mls @ 6.7 mls/hr 05/22/22 09:00 05/27/22 00:27 Sodium Chloride IV 06/21/22 08:59 1 mcg/kg/hr .[id number] PRN 6.7 mls/hr PAIN Administration Protocol 1 MCG/KG/HR Amiodarone HCl/Dextrose 360 mg in 200 mls @ 17 mls/hr 05/23/22 08:15 05/27/22 04:45 Nexterone 360 Mg/200 Ml Bag IV 06/22/22 08:14 16.7 mls/hr .[id number] VERNA 16.7 mls/hr Administration Protocol Levofloxacin/Dextrose 500 mg in 100 mls @ 100 mls/hr 05/24/22 22:00 05/26/22 21:43 Levofloxacin 500mg/100ml D5w IV 06/22/22 19:59 100 mls/hr QPM VERNA Administration Insulin Human Lispro 0 unit 05/20/22 09:51 05/27/22 06:07 Insulin Lispro 1 Unit SQ 06/19/22 09:50 8 unit UD PRN Administration HYPERGLYCEMIA Lorazepam 2 mg 05/22/22 08:35 05/27/22 03:36 Lorazepam 2 Mg/1 Ml 2 Mg Vial IV 06/21/22 08:34 2 mg Q4HPRN PRN Administration AGITATION Mupirocin 1 gm 05/22/22 10:00 05/26/22 21:41 Mupirocin 22 Gm Tube Ointment TP 06/20/22 22:14 1 gm BID VERNA Administration Sodium Chloride 3 ml 05/26/22 16:07 Sodium Cl For Inhalation 3 Ml Ud Nebule IH 06/25/22 16:06 PRN PRN Discontinued Medications Generic Name Dose Route Start Last Admin Trade Name Ryanq PRN Reason Stop Dose Admin Albuterol/Ipratropium 3 ml 05/20/22 15:00 Ipratropium/Albuterol Sulfate 3 Ml Ampul.Neb IH 06/19/22 14:59 QIDRT [facility] Amiodarone HCl 200 mg 05/20/22 14:00 05/22/22 10:10 Amiodarone Hcl 200 Mg Tab PO 06/19/22 13:59 Not Given DAILY [facility] Amiodarone HCl Confirm 05/26/22 14:49 Amiodarone Hcl 150 Mg/3 Ml Vial Administered 05/26/22 14:50 Dose 150 mg .ROUTE .STK-MED ONE Apixaban 5 mg 05/20/22 14:00 05/21/22 22:55 Apixaban 2.5 Mg Tablet PO 06/19/22 13:59 5 mg BID VERNA Administration Aspirin 325 mg 05/20/22 23:58 Aspirin 325 Mg Tablet.Ec PO 05/20/22 23:59 STAT ONE Aspirin 324 mg 05/20/22 00:04 05/20/22 00:06 Aspirin 81 Mg Tab.Chew PO 05/20/22 00:05 324 mg STAT ONE Administration Aspirin Confirm 05/20/22 00:03 Aspirin 81 Mg Tab.Chew Administered 05/20/22 00:04 Dose 324 mg .ROUTE .STK-MED ONE Cisatracurium Besylate 10 mg 05/21/22 20:00 05/21/22 20:02 Cisatracurium 20 Mg/10 Ml Vial 0.15 mg/kg (10 mg) 05/21/22 20:01 10 mg IV Administration STAT STA Methylprednisolone Sodium 0 mg 05/19/22 23:48 05/20/22 00:00 Succinate 125 mg/ Sterile IV 05/19/22 23:49 125 mg Water 2 ml STAT ONE Administration Diltiazem HCl 5 mg 05/20/22 17:00 05/22/22 21:38 Diltiazem Hcl Iv 5 Mg/Ml Vial IV 06/19/22 16:59 Not Given Q12H [facility] Diltiazem HCl Confirm 05/21/22 06:26 Diltiazem Hcl Iv 5 Mg/Ml Vial Administered 05/21/22 06:27 Dose 50 mg IV .STK-MED ONE Doxycycline Hyclate Confirm 05/20/22 00:03 Doxycycline Hyclate 100 Mg/Vial Injection Administered 05/20/22 00:04 Dose 100 mg IV .STK-MED ONE Doxycycline Hyclate 100 mg 05/20/22 10:00 Doxycycline Hyclate 100 Mg Tablet PO 06/19/22 09:59 BID VERNA Enoxaparin Sodium 40 mg 05/22/22 10:00 05/23/22 10:19 Enoxaparin Sodium 40 Mg/0.4 Ml Syringe SQ 06/21/22 09:59 40 mg DAILY VERNA Administration Enoxaparin Sodium 70 mg 05/24/22 10:00 05/25/22 21:35 Enoxaparin Sodium 80 Mg/0.8 Ml Syringe SQ 06/23/22 09:59 70 mg BID VERNA Administration Furosemide 40 mg 05/20/22 10:00 05/22/22 13:48 Furosemide 40 Mg/4 Ml Vial IV 06/19/22 09:59 Not Given Q12H VERNA Haloperidol Lactate 5 mg 05/24/22 07:00 05/24/22 09:44 Haloperidol Lactate 5 Mg/Ml Vial IV 05/24/22 07:01 Not Given ONCE ONE Hydroxyzine HCl 25 mg 05/20/22 15:00 05/22/22 17:18 Hydroxyzine Hcl 25 Mg Tablet PO 06/19/22 14:59 Not Given TID VERNA Sodium Chloride 1,000 mls @ 999 mls/hr 05/19/22 23:48 05/20/22 02:54 Sodium Chloride 0.9% 1000 Ml IV 05/20/22 00:48 Infused .Q1H1M STA Infusion Azithromycin 500 mg in 250 mls @ 250 mls/hr 05/19/22 23:48 05/20/22 00:01 Zithromax 500 Mg/ 250 Ml Nacl Premix IV 05/20/22 00:47 Not Given STAT STA Doxycycline Hyclate 100 mg/ 100 mls @ 100 mls/hr 05/20/22 10:00 05/20/22 00:12 Dextrose IV 06/19/22 09:59 100 mls/hr Q12HT VERNA Administration Azithromycin Confirm 05/19/22 23:59 Zithromax 500 Mg/ 250 Ml Nacl Premix Administered 05/20/22 00:00 Dose 500 mg in 250 mls @ ud IV .STK-MED ONE Sodium Chloride Confirm 05/19/22 23:59 Sodium Chloride 0.9% 1000 Ml Administered 05/20/22 00:00 Dose 1,000 mls @ ud .ROUTE .STK-MED ONE Dextrose Confirm 05/20/22 00:03 D5w 100ml Mini Bag 100 Ml Administered 05/20/22 00:04 Dose 100 mls @ ud IV .STK-MED ONE Potassium Chloride 100 mls @ 50 mls/hr 05/21/22 07:00 05/21/22 23:35 Potassium Chloride 20 Meq In Water 100ml IV 05/21/22 14:59 50 mls/hr Q2H VERNA Administration Cisatracurium Besylate 200 mg/ 200 mls @ 8.076 mls/hr 05/21/22 20:11 05/22/22 10:40 Dextrose IV 06/20/22 20:10 0 mcg/kg/min .Q24H PRN 0 mls/hr PARALYSIS Titration Protocol 2 MCG/KG/MIN Potassium Chloride Confirm 05/21/22 23:33 Potassium Chloride 20 Meq In Water 100ml Administered 05/21/22 23:34 Dose 100 mls @ ud IV .STK-MED ONE Fentanyl Citrate 1,500 mcg/ 150 mls @ ud 05/22/22 09:00 Sodium Chloride IV 05/22/22 09:01 .STK-MED ONE Sodium Chloride 1,000 mls @ 250 mls/hr 05/22/22 08:33 05/22/22 08:57 Sodium Chloride 0.9% 1000 Ml IV 05/22/22 12:32 250 mls/hr .Q4H STA Administration Sodium Chloride Confirm 05/22/22 09:21 Sodium Chloride 0.9% 1000 Ml Administered 05/22/22 09:22 Dose 1,000 mls @ ud .ROUTE .STK-MED ONE Sodium Chloride Confirm 05/22/22 09:25 Sodium Chloride 0.9% 500 Ml Administered 05/22/22 09:26 Dose 500 mls @ ud IV .STK-MED ONE Amiodarone HCl/Dextrose 360 mg in 200 mls @ 33 mls/hr 05/22/22 10:45 05/23/22 05:56 Nexterone 360 Mg/200 Ml Bag IV 06/21/22 10:44 Not Given .Q6H4M VERNA Protocol Levofloxacin/Dextrose 500 mg in 100 mls @ 100 mls/hr 05/23/22 20:00 05/23/22 19:37 Levofloxacin 500mg/100ml D5w IV 06/22/22 19:59 100 mls/hr Q24H10 VERNA Administration Amiodarone HCl 150 mg/ 103 mls @ 618 mls/hr 05/26/22 07:40 05/26/22 07:59 Dextrose IV 05/26/22 07:49 618 mls/hr STAT ONE Administration Protocol Ketamine HCl 20 mg 05/21/22 19:50 05/21/22 19:51 Ketamine Hcl 50 Mg/Ml IV 05/21/22 19:51 20 mg STAT ONE Administration Ketamine HCl 20 mg 05/21/22 19:53 05/21/22 19:55 Ketamine Hcl 50 Mg/Ml IV 05/21/22 19:54 20 mg STAT ONE Administration Lorazepam 2 mg 05/20/22 01:29 05/20/22 02:24 Lorazepam 2 Mg/1 Ml 2 Mg Vial IV 05/20/22 01:30 2 mg STAT ONE Administration Lorazepam Confirm 05/20/22 02:20 Lorazepam 2 Mg/1 Ml 2 Mg Vial Administered 05/20/22 02:21 Dose 2 mg .ROUTE .STK-MED ONE Lorazepam 1 mg 05/20/22 07:40 05/21/22 13:01 Lorazepam 2 Mg/1 Ml 2 Mg Vial IV 06/19/22 07:39 1 mg Q6H PRN PRN Administration ANXIETY Methylprednisolone Sodium Succinate Confirm 05/19/22 23:59 Methylprednis Sod Succ 125 Mg/2 Ml Vial Administered 05/20/22 00:00 Dose 125 mg .ROUTE .STK-MED ONE Methylprednisolone Sodium Succinate Confirm 05/20/22 06:10 Methylprednis Sod Succ 125 Mg/2 Ml Vial Administered 05/20/22 06:11 Dose 125 mg .ROUTE .STK-MED ONE Methylprednisolone Sodium Succinate Confirm 05/21/22 17:14 Methylprednis Sod Succ 125 Mg/2 Ml Vial Administered 05/21/22 17:15 Dose 125 mg .ROUTE .STK-MED ONE Methylprednisolone Sodium Succinate Confirm 05/25/22 15:47 Methylprednis Sod Succ 125 Mg/2 Ml Vial Administered 05/25/22 15:48 Dose 125 mg .ROUTE .STK-MED ONE Methylprednisolone Sodium Succinate Confirm 05/26/22 14:44 Methylprednis Sod Succ 125 Mg/2 Ml Vial Administered 05/26/22 14:45 Dose 125 mg .ROUTE .STK-MED ONE Metoprolol Tartrate 50 mg 05/20/22 14:00 05/22/22 10:10 Metoprolol Tartrate 50 Mg Tablet PO 06/19/22 13:59 Not Given DAILY VERNA Morphine Sulfate Confirm 05/21/22 19:10 Morphine Sulfate 2 Mg/Ml Inj Administered 05/21/22 19:11 Dose 2 mg .ROUTE .STK-MED ONE Morphine Sulfate 1 mg 05/21/22 19:13 05/21/22 19:14 Morphine Sulfate 2 Mg/Ml Inj IV 05/21/22 19:14 1 mg STAT ONE Administration Mupirocin 1 gm 05/21/22 22:15 05/21/22 22:28 Mupirocin 22 Gm Tube Ointment TP 06/20/22 22:14 1 gm UD VERNA Administration Non-Formulary Medication 1 each 05/22/22 09:23 05/22/22 11:42 Pharmacy Dosing Request MC 05/22/22 09:24 Not Given STAT ONE Olanzapine 10 mg 05/21/22 10:00 05/21/22 09:38 Olanzapine 5 Mg/Tab Orally Disintegrating PO 05/21/22 10:01 10 mg STAT ONE Administration Olanzapine 5 mg 05/21/22 22:00 05/21/22 23:02 Olanzapine 5 Mg/Tab Orally Disintegrating PO 06/20/22 21:59 Not Given QHS VERNA Potassium Bicarbonate 25 meq 05/22/22 02:15 05/22/22 06:13 Potassium Bicarbonate 25 Meq Tab PO 05/22/22 06:16 25 meq Q2H VERNA Administration Propofol 100 mg 05/21/22 19:50 05/21/22 21:16 Propofol 10 Mg/Ml 20ml Vial 1.5 mg/kg (100 mg) 05/21/22 19:51 Not Given IV STAT STA Quetiapine Fumarate 50 mg 05/21/22 14:18 05/21/22 14:45 Quetiapine Fumarate 25 Mg Tablet PO 05/21/22 14:19 50 mg NOW ONE Administration Quetiapine Fumarate 50 mg 05/21/22 22:00 05/22/22 09:58 Quetiapine Fumarate 25 Mg Tablet PO 06/20/22 21:59 Not Given BID VERNA Sodium Chloride Confirm 05/26/22 15:00 Sodium Cl For Inhalation 3 Ml Ud Nebule Administered 05/26/22 15:01 Dose 3 ml IH .STK-MED ONE Sterile Water Confirm 05/19/22 23:59 Water For Injection,Sterile 10 Ml Vial Administered 05/20/22 00:00 Dose 10 ml IJ .STK-MED ONE Sterile Water Confirm 05/20/22 06:10 Water For Injection,Sterile 10 Ml Vial Administered 05/20/22 06:11 Dose 10 ml IJ .STK-MED ONE Intake & Output (Last 24 hours) 05/24/22 05/25/22 05/26/22 05/27/22 11:59 11:59 11:59 11:59 Intake Total 2666 2561 3835 3684 Output Total 1200 1000 1400 1600 Balance 1466 1561 2435 2084 Weight 70.2 kg 72.4 kg 72.4 kg Laboratory Results (Last 24 hours) 05/27/22 05/27/22 05/27/22 05:30 05:26 05:26 WBC 7.8 RBC 3.47 L Hgb 9.1 L Hct 30.5 L MCV 87.9 MCH 26.2 MCHC 29.8 L RDW 17.2 H Plt Count 200 MPV 9.8 Puncture Site ART LINE pCO2 48 H pO2 109 H Base Excess 8.4 H O2 Saturation 92.4 L ABG pH 7.45 ABG HCO3 33.4 H* ABG O2 Sat (Measured) 98.3 A-a Gradient 116 a/A Ratio 0.48 Hemoglobin 9.7 Carboxyhemoglobin 5.2 Methemoglobin 0.9 L Temperature 37.0 POC O2 Flow Rate 40 Tidal Volume 600 PEEP 8.0 Sodium 144 Potassium 4.4 4.3 Chloride 109 H Carbon Dioxide 33 H Anion Gap 5.8 BUN 38 H Creatinine 0.75 Estimated GFR > 60.0 Glucose 364 H POC Glucometer Calcium 7.8 L Magnesium Total Bilirubin 0.40 Direct Bilirubin 0.4 AST 23 ALT 43 Alkaline Phosphatase 84 Troponin I Serum Total Protein 5.5 L Albumin 2.7 L 05/27/22 05/26/22 05/26/22 00:04 19:27 10:20 WBC RBC Hgb Hct MCV MCH MCHC RDW Plt Count MPV Puncture Site pCO2 pO2 Base Excess O2 Saturation ABG pH ABG HCO3 ABG O2 Sat (Measured) A-a Gradient a/A Ratio Hemoglobin Carboxyhemoglobin Methemoglobin Temperature POC O2 Flow Rate Tidal Volume PEEP Sodium Potassium Chloride Carbon Dioxide Anion Gap BUN Creatinine Estimated GFR Glucose POC Glucometer 324 H 262 H Calcium Magnesium 2.6 H Total Bilirubin Direct Bilirubin AST ALT Alkaline Phosphatase Troponin I Serum Total Protein Albumin 05/26/22 10:20 WBC RBC Hgb Hct MCV MCH MCHC RDW Plt Count MPV Puncture Site pCO2 pO2 Base Excess O2 Saturation ABG pH ABG HCO3 ABG O2 Sat (Measured) A-a Gradient a/A Ratio Hemoglobin Carboxyhemoglobin Methemoglobin Temperature POC O2 Flow Rate Tidal Volume PEEP Sodium Potassium Chloride Carbon Dioxide Anion Gap BUN Creatinine Estimated GFR Glucose POC Glucometer Calcium Magnesium Total Bilirubin Direct Bilirubin AST ALT Alkaline Phosphatase Troponin I 0.165 H* Serum Total Protein Albumin Orders (Last 24 hours) Category Date Time Status CHEST 1 VIEW (PORTABLE) Routine Exams 05/26/22 08:10 Completed Portable Chest [CHEST 1 VIEW (PORTABLE)] Routine Exams 05/27/22 05:00 Taken Portable Chest [CHEST 1 VIEW (PORTABLE)] Stat Exams 05/26/22 14:07 Completed ABG [ARTERIAL BLOOD GASES] AM.LAB Lab 05/27/22 04:00 Ordered ABG [ARTERIAL BLOOD GASES] DAILY Lab 05/27/22 05:30 Results ABG [ARTERIAL BLOOD GASES] DAILY Lab 05/28/22 05:00 Ordered CBC DAILY Lab 05/27/22 05:26 Completed CMP/HFII DAILY Lab 05/27/22 05:26 Completed MAG [MAGNESIUM] Stat Lab 05/26/22 10:20 Completed POCT GLUCOSE Stat Lab 05/26/22 19:27 Completed POCT GLUCOSE Stat Lab 05/27/22 00:04 Completed TROPONIN Stat Lab 05/26/22 10:20 Completed Amiodarone HCl 150 mg/3 ml [Cordarone 150 MG/3 ML Med 05/26/22 14:49 Discontinued Injection] 150 mg .ROUTE .STK-MED ONE Amiodarone HCl 150 mg/3 ml [Cordarone 150 MG/3 ML Med 05/26/22 07:40 Discontinued Injection] 150 mg D5w 100 ml [D5w 100ML Mini Bag 100 ML] 100 ml IV STAT Enoxaparin Sodium [Enoxaparin Sodium] Med 05/26/22 10:00 Active 80 mg SQ BID Methylprednis Sod Succ 125 mg* [solu-MEDROL] Med 05/26/22 14:44 Discontinued 125 mg .ROUTE .STK-MED ONE NaCl 3Ml For Inhalation [Sodium Chloride 3 ML UD Med 05/26/22 15:00 Discontinued NEBULES] 3 ml IH .STK-MED ONE NaCl 3Ml For Inhalation [Sodium Chloride 3 ML UD Med 05/26/22 16:07 Active NEBULES] 3 ml IH PRN PRN Patient Care Notes (Last 24 hours) 05/26/22 22:00 Nursing Note by Eulalio Griggs pt resting comfortably at this time. pt tolerating mech vent and sedation well at this time. will cont to monitor. Initialized on 05/26/22 22:00 - END OF NOTE 05/26/22 20:30 Nursing Note by Eulalio Griggs pt resting comfortably at this time. pt cont to be sedated and on mech vent. nad at this time. will cont to closely monitor. Initialized on 05/26/22 20:30 - END OF NOTE 05/26/22 15:21 Nursing Note by Ysabel Martinez ngt placement confirmed with xray report and feedings resumed at 50cc/hr Initialized on 05/26/22 15:21 - END OF NOTE 05/26/22 14:08 Nursing Note by Ysabel Martinez ogt clotted off, right nare ngt placed. Initialized on 05/26/22 14:08 - END OF NOTE 05/26/22 11:25 Nursing Note by Ysabel Martinez spoke with pt's niece, kofi, by phone and updated on this morning's attempt at extubation. she is aware of the gravity of pt's situation and says if his condition continues to be hopeless she wants to be able to have pt home with hospice. she is ok with dr flores's plan of waiting til saturday to try and extubate again. Initialized on 05/26/22 11:25 - END OF NOTE 05/26/22 10:49 Nursing Note by Ysabel Martinez dr at bedside rounding on pt. labs ordered fro am. Initialized on 05/26/22 10:49 - END OF NOTE 05/26/22 10:14 Nursing Note by Ysabel Martinez dr on phone requesting update. updated on this morning's events and orders received to keep pt sedated, and run a troponin and magnesium level Initialized on 05/26/22 10:14 - END OF NOTE 05/26/22 08:10 Nursing Note by Ysabel Martinez bp 92/63, fentanyl decreased to 0.75mcg/kg/hr and diprivan decreased to 20mcg/kg/min. Initialized on 05/26/22 08:10 - END OF NOTE 05/26/22 07:35 (created 05/26/22 07:43) Nursing Note by Ysabel Martinez pt having runs of vtach. placed back on cmv, diprivan restarted at 40mcg/kg/min, and fentanyl increased to 1.5mcg/kg/hr. dr flores updated and new order given for amiodorone bolus of 150mg. Initialized on 05/26/22 07:43 - END OF NOTE 05/26/22 07:15 (created 05/26/22 08:05) Nursing Note by Ysabel Martinez pt becoming more restless, tachycardic and hypertensive. Initialized on 05/26/22 08:05 - END OF NOTE 05/26/22 07:05 (created 05/26/22 07:15) Nursing Note by Ysabel Martinez in cpap per special weapons unit officer Initialized on 05/26/22 07:15 - END OF NOTE Code(s): J96.21 - ACUTE AND CHRONIC RESPIRATORY FAILURE WITH HYPOXIA (2) Acute on chronic diastolic congestive heart failure, NYHA class 4 Current Visit: Yes Status: Acute Code(s): I50.33 - ACUTE ON CHRONIC DIASTOLIC (CONGESTIVE) HEART FAILURE (3) COPD exacerbation Current Visit: Yes Status: Acute Code(s): J44.1 - CHRONIC OBSTRUCTIVE PULMONARY DISEASE W (ACUTE) EXACERBATION (4) Alcoholic brain degeneration Current Visit: Yes Status: Chronic Code(s): F10.20 - ALCOHOL DEPENDENCE, UNCOMPLICATED; G31.2 - DEGENERATION OF NERVOUS SYSTEM DUE TO ALCOHOL (5) Delirium due to multiple etiologies Current Visit: Yes Status: Resolved Code(s): F05 - DELIRIUM DUE TO KNOWN PHYSIOLOGICAL CONDITION
--- NOTE | 2022-05-27 08:50 | XRAY ---
Indication: Patient on ventilator. Comparison: One day earlier Portable chest again demonstrates diffuse bilateral bilateral airspace disease, worsened right base with now tiny right effusion. Stable small left effusion. Heart not enlarged. Stable endotracheal and NG tube in situ.
[2022-05-27] MEDS: Pepcid 20 MG VIAL IV SCH ×2 (09:14→21:15)
[2022-05-27] MEDS: Bactroban OINTMENT TP SCH ×2 (09:15→21:16)
[2022-05-27] MEDS: Lubrifresh P.M. 3.5 gm Ointment OP SCH ×2 (09:15→21:17)
[2022-05-27] MEDS: ENOXAPARIN SODIUM SQ SCH ×2 (09:15→21:16)
[2022-05-27] MEDS: PERIDEX MM SCH ×2 (09:15→21:17)
[2022-05-27] MEDS: WATER IV SCH ×2 (15:04→15:08)
[2022-05-27] MEDS: DEXTROSE IV SCH ×2 (15:04→15:08)
[2022-05-27] MEDS: CORDARONE IV SCH ×2 (15:04→15:08)
[2022-05-27] MEDS ORDERED: solu-MEDROL ONE (16:09)
[2022-05-27] MEDS: Levofloxacin 500MG/100ML D5W 500 MG/100 ML BAG IV SCH (21:13)
[2022-05-28] MEDS: solu-MEDROL 60 MG, Sterile H2O 10 ml 2 ML IV SCH ×4 (00:09→05:54)
[2022-05-28] MEDS: Propofol 1000 mg/100 ml Bottle 100 ML IV PRN ×3 (00:10→09:16)
[2022-05-28] MEDS: HUMALOG SQ PRN ×2 (00:16→05:53)
[2022-05-28] MEDS: FENTANYL 500 MCG/10 ML VIAL 1,500 MCG in Sodium Chloride 0.9% 150 ML 120 ML IV PRN (01:36)
[2022-05-28] MEDS: DUONEB 0.5-3 MG/3 ml Neb IH SCH ×3 (03:13→10:28)
[2022-05-28 04:28] LABS: A-aADO2 122; ABG HEMOGLOBIN 10.2; ABG POTASSIUM 4.6 (3.5-5.1); ABG SITE ART LINE; ARTERIAL BLD GAS O2 SATURATION 99.3 % (95-100); ARTERIAL BLD GAS TIDAL VOLUME 600 cc; ARTERIAL BLOOD GAS BASE EXCESS 8.2 (-2.0-2.0); ARTERIAL BLOOD GAS FIO2 40 %; ARTERIAL BLOOD GAS PCO2 45 mmHg (35-45); ARTERIAL BLOOD GAS PO2 107 mmHg (75-100); ARTERIAL BLOOD GAS VENT MODE AC; ARTERIAL BLOOD GAS VENT RATE 12 /MIN; ARTERIAL BLOOD GAS pH 7.47 (7.35-7.45); CARBOXYHEMOGLOBIN 3.4 % THgb (0.0-6.9); HCO3- 32.8 (22-28); HGB O2 SAT 95.5 g/dF (94-100); Methhemoglobin 0.4 % (1.4-1.5); paO2 pAO1 0.47
[2022-05-28 04:29] LABS: ARTERIAL BLOOD GAS PEEP 6 cmH2O
[2022-05-28] MEDS: Sodium Chloride 0.9% 1000 ML 1,000 ML IV SCH (06:04)
[2022-05-28] MEDS: Ativan 2 MG/1 ML VIAL IV PRN (09:30)
[2022-05-28] MEDS: ENOXAPARIN SODIUM SQ SCH (09:33)
[2022-05-28] MEDS: Pepcid 20 MG VIAL IV SCH (09:49)
[2022-05-28] MEDS: Bactroban OINTMENT TP SCH (09:53)
[2022-05-28] MEDS: PERIDEX MM SCH (09:53)
[2022-05-28] MEDS: CORDARONE IV SCH (10:56)
[2022-05-28] MEDS: DEXTROSE IV SCH (10:56)
[2022-05-28] MEDS: WATER IV SCH (10:56)
[2022-05-28 12:11] VITALS: O2SAT 98
--- NOTE | 2022-05-28 13:54 | PROG NOTE ---
CONSULT DATE: 05/25/2022 HISTORY: The patient is a 71-year-old male is on mechanical ventilator in stable condition. No acute distress. He continues on Fentanyl and Propofol. He remains in atrial fibrillation with rate well controlled on amiodarone drip. REVIEW OF SYSTEMS: Unobtainable due to intubation with mechanical ventilator. PHYSICAL EXAMINATION: GENERAL APPEARANCE: Sedated, intubated. CVS: Hypotensive with blood pressure 110/57, atrial fibrillation with rate control. RESPIRATORY: Intubated, diminished, clear, no distress. ABDOMEN: Soft. : Urine Myles cath. NEUROLOGIC: Sedated on mechanical ventilator. SKIN: Warm, dry, intact. LABORATORY DATA AND TESTS: All labs reviewed including CT scan and chest x-ray. ASSESSMENT: 1) Acute on chronic respiratory failure. 2) Chronic obstructive pulmonary disease, exacerbation. 3) Atrial fibrillation. 4) Anemia. 5) Hypertension. 6) Nicotine dependence. PLAN: 1) The patient remains intubated on mechanical ventilator with assist-control. Will attempt to initiate CPAP trial. 2) Propofol and Fentanyl infusion, all sedations were assessed and patient had no pain. 3) Arterial blood gases within normal limits. Redraw in a.m. 4) Chest x-ray reviewed. No new changes. Repeat imaging in a.m. 5) Continue amiodarone, atrial fibrillation very well controlled. Hypertensive, his blood pressure 100/57. 6) Receive the entirety of 40 cc/hour with Advair. The patient will be assessed for mentation and the ability to tolerate CPAP trial. If he tolerates will plan to extubate tomorrow under the care of Dr. Morgan Vaughan. As dictated by OSCAR Escobedo.
[2022-05-28] MEDS ORDERED: ATIVAN IV ONE (14:00)
[2022-05-28] MEDS ORDERED: SODIUM CHLORIDE 0.9% IV ONE (14:00)
[2022-05-28 14:08] VITALS: BP 140/68; PULSE 101
--- NOTE | 2022-05-28 21:17 | PCM.DS ---
Discharge Summary Date of Admission: 05/21/22 12:00 Admitting Physician: TASIA CHRISTENSEN Consults: Consults on Case 05/21/22 19:05 Consult Pulmonology ROUTINE Primary Care Provider: TASIA CHRISTENSEN Allergies Allergies Penicillins Allergy (Severe, Verified 05/19/22 23:52) Anaphylactic Reaction Hospital Summary - Hospital Course Hospital Course: Chief Complaint Diagnosis EXAC COPD, AMS Allergies Allergy/AdvReac Type Severity Reaction Status Date / Time Penicillins Allergy Severe Anaphylactic Verified 05/19/22 23:52 Reaction Vital Signs (Last 24 hours) Temp Pulse Resp BP Pulse Ox 05/28/22 14:00 99.5 F 101 H 13 140/68 98 05/28/22 13:00 102 H 13 121/60 98 05/28/22 12:00 99.3 F 105 H 12 112/56 98 05/28/22 11:00 97.9 F 104 H 12 115/56 100 05/28/22 10:51 105 H 12 99 05/28/22 10:00 96 H 12 105/51 98 05/28/22 09:00 101 H 12 112/58 98 05/28/22 08:00 107 H 14 144/68 99 05/28/22 07:00 98.6 F 105 H 16 134/65 100 05/28/22 06:55 104 H 15 100 05/28/22 05:58 110 H 13 145/71 99 05/28/22 04:56 110 H 13 145/71 99 05/28/22 04:00 98 F 113 H 14 137/66 98 05/28/22 03:15 105 H 12 99 05/28/22 03:00 99 H 14 143/69 100 05/28/22 01:58 97.5 F 97 H 13 120/57 100 05/28/22 01:00 97 H 12 122/59 100 05/28/22 00:00 98.7 F 108 H 12 121/59 100 05/27/22 23:00 95 H 12 121/59 100 05/27/22 22:00 99 H 12 121/59 100 Home Medications Medication Instructions Recorded Confirmed Last Taken Type Amiodarone HCl 200 mg PO DAILY 05/20/22 05/20/22 Unknown History Current Medications Discontinued Medications Generic Name Dose Route Start Last Admin Trade Name Freq PRN Reason Stop Dose Admin Albuterol Sulfate 1 puff 05/20/22 12:22 Albuterol Common Canister Inhaler 06/19/22 12:21 Q4HPRN PRN SHORTNESS OF BREATH/WHEEZING Albuterol Sulfate 2.5 mg 05/20/22 12:22 05/21/22 13:57 Albuterol Sulfate 2.5 Mg/3 Ml [facility] 06/19/22 12:21 2.5 mg Q4H PRN PRN Administration SHORTNESS OF BREATH/WHEEZING Albuterol/Ipratropium 3 ml 05/20/22 03:18 05/28/22 10:28 Ipratropium/Albuterol Sulfate 3 Ml [facility] 06/19/22 03:17 3 ml Q4HRT VERNA Administration Albuterol/Ipratropium 3 ml 05/20/22 15:00 Ipratropium/Albuterol Sulfate 3 Ml [facility] 06/19/22 14:59 QIDRT VERNA Amiodarone HCl 200 mg 05/20/22 14:00 05/22/22 10:10 Amiodarone Hcl 200 Mg Tab PO 06/19/22 13:59 Not Given DAILY VERNA Amiodarone HCl Confirm 05/26/22 14:49 Amiodarone Hcl 150 Mg/3 Ml Vial Administered 05/26/22 14:50 Dose 150 mg .ROUTE .STK-MED ONE Apixaban 5 mg 05/20/22 14:00 05/21/22 22:55 Apixaban 2.5 Mg Tablet PO 06/19/22 13:59 5 mg BID VERNA Administration Artificial Tears 1 gm 05/21/22 22:00 05/27/22 21:17 Lanolin/Min Oil/Petrolat Wht 3.5 Gm Tube OP 06/20/22 21:59 1 gm BID VERNA Administration Aspirin 325 mg 05/20/22 23:58 Aspirin 325 Mg Tablet.Ec PO 05/20/22 23:59 STAT ONE Aspirin 324 mg 05/20/22 00:04 05/20/22 00:06 Aspirin 81 Mg Tab.Chew PO 05/20/22 00:05 324 mg STAT ONE Administration Aspirin Confirm 05/20/22 00:03 Aspirin 81 Mg Tab.Chew Administered 05/20/22 00:04 Dose 324 mg .ROUTE .STK-MED ONE Chlorhexidine Gluconate 15 ml 05/21/22 22:10 05/28/22 09:53 Chlorhexidine Gluconate 15 Ml Mouthwash MM 06/20/22 22:09 15 ml BID VERNA Administration Cisatracurium Besylate 10 mg 05/21/22 20:00 05/21/22 20:02 Cisatracurium 20 Mg/10 Ml Vial 0.15 mg/kg (10 mg) 05/21/22 20:01 10 mg IV Administration STAT STA Methylprednisolone Sodium 0 mg 05/19/22 23:48 05/20/22 00:00 Succinate 125 mg/ Sterile IV 05/19/22 23:49 125 mg Water 2 ml STAT ONE Administration Methylprednisolone Sodium 0 mg 05/20/22 06:00 05/28/22 05:54 Succinate 60 mg/ Sterile Water IV 06/19/22 05:59 60 mg 2 ml Q6HT VERNA Administration Diltiazem HCl 5 mg 05/20/22 17:00 05/22/22 21:38 Diltiazem Hcl Iv 5 Mg/Ml Vial IV 06/19/22 16:59 Not Given Q12H [facility] Diltiazem HCl Confirm 05/21/22 06:26 Diltiazem Hcl Iv 5 Mg/Ml Vial Administered 05/21/22 06:27 Dose 50 mg IV .STK-MED ONE Docusate Sodium 100 mg 05/20/22 12:22 Docusate Sodium 100 Mg Capsule PO 06/19/22 12:21 DAILY PRN PRN CONSTIPATION Doxycycline Hyclate Confirm 05/20/22 00:03 Doxycycline Hyclate 100 Mg/Vial Injection Administered 05/20/22 00:04 Dose 100 mg IV .STK-MED ONE Doxycycline Hyclate 100 mg 05/20/22 10:00 Doxycycline Hyclate 100 Mg Tablet PO 06/19/22 09:59 BID [facility] Enoxaparin Sodium 40 mg 05/22/22 10:00 05/23/22 10:19 Enoxaparin Sodium 40 Mg/0.4 Ml Syringe SQ 06/21/22 09:59 40 mg DAILY VERNA Administration Enoxaparin Sodium 70 mg 05/24/22 10:00 05/25/22 21:35 Enoxaparin Sodium 80 Mg/0.8 Ml Syringe SQ 06/23/22 09:59 70 mg BID VERNA Administration Enoxaparin Sodium 80 mg 05/26/22 10:00 05/28/22 09:33 Enoxaparin Sodium 80 Mg/0.8 Ml Syringe SQ 06/23/22 09:59 80 mg BID VERNA Administration Famotidine 20 mg 05/20/22 10:00 05/28/22 09:49 Famotidine 20 Mg/1 Vial IV 06/19/22 09:59 20 mg Q12HT VERNA Administration Furosemide 40 mg 05/20/22 10:00 05/22/22 13:48 Furosemide 40 Mg/4 Ml Vial IV 06/19/22 09:59 Not Given Q12H VERNA Haloperidol Lactate 5 mg 05/21/22 12:17 05/21/22 12:25 Haloperidol Lactate 5 Mg/Ml Vial IV 06/20/22 12:16 5 mg Q8H PRN PRN Administration AGITATION Haloperidol Lactate 5 mg 05/24/22 07:00 05/24/22 09:44 Haloperidol Lactate 5 Mg/Ml Vial IV 05/24/22 07:01 Not Given ONCE ONE Hydroxyzine HCl 25 mg 05/20/22 15:00 05/22/22 17:18 Hydroxyzine Hcl 25 Mg Tablet PO 06/19/22 14:59 Not Given TID VERNA Sodium Chloride 1,000 mls @ 999 mls/hr 05/19/22 23:48 05/20/22 02:54 Sodium Chloride 0.9% 1000 Ml IV 05/20/22 00:48 Infused .Q1H1M STA Infusion Azithromycin 500 mg in 250 mls @ 250 mls/hr 05/19/22 23:48 05/20/22 00:01 Zithromax 500 Mg/ 250 Ml Nacl Premix IV 05/20/22 00:47 Not Given STAT STA Doxycycline Hyclate 100 mg/ 100 mls @ 100 mls/hr 05/20/22 10:00 05/20/22 00:12 Dextrose IV 06/19/22 09:59 100 mls/hr Q12HT VERNA Administration Azithromycin Confirm 05/19/22 23:59 Zithromax 500 Mg/ 250 Ml Nacl Premix Administered 05/20/22 00:00 Dose 500 mg in 250 mls @ ud IV .STK-MED ONE Sodium Chloride Confirm 05/19/22 23:59 Sodium Chloride 0.9% 1000 Ml Administered 05/20/22 00:00 Dose 1,000 mls @ ud .ROUTE .STK-MED ONE Dextrose Confirm 05/20/22 00:03 D5w 100ml Mini Bag 100 Ml Administered 05/20/22 00:04 Dose 100 mls @ ud IV .STK-MED ONE Sodium Chloride 1,000 mls @ 75 mls/hr 05/20/22 03:18 05/28/22 06:04 Sodium Chloride 0.9% 1000 Ml IV 06/19/22 03:17 75 mls/hr .[id number] VERNA Administration Potassium Chloride 100 mls @ 50 mls/hr 05/21/22 07:00 05/21/22 23:35 Potassium Chloride 20 Meq In Water 100ml IV 05/21/22 14:59 50 mls/hr Q2H VERNA Administration Propofol 100 mls @ 2.019 mls/hr 05/21/22 19:50 05/28/22 14:09 Propofol 1000 Mg/100 Ml Bottle IV 06/20/22 19:49 0 mcg/kg/min .Q24H PRN 0 mls/hr SEDATION FOR VENT Titration Protocol 5 MCG/KG/MIN Cisatracurium Besylate 200 mg/ 200 mls @ 8.076 mls/hr 05/21/22 20:11 05/22/22 10:40 Dextrose IV 06/20/22 20:10 0 mcg/kg/min .Q24H PRN 0 mls/hr PARALYSIS Titration Protocol 2 MCG/KG/MIN Potassium Chloride Confirm 05/21/22 23:33 Potassium Chloride 20 Meq In Water 100ml Administered 05/21/22 23:34 Dose 100 mls @ ud IV .STK-MED ONE Fentanyl Citrate 1,500 mcg/ 150 mls @ ud 05/22/22 09:00 Sodium Chloride IV 05/22/22 09:01 .STK-MED ONE Fentanyl Citrate 1,500 mcg/ 150 mls @ 6.7 mls/hr 05/22/22 09:00 05/28/22 13:51 Sodium Chloride IV 06/21/22 08:59 0.5 mcg/kg/hr .[id number] PRN 3.35 mls/hr PAIN Titration Protocol 1 MCG/KG/HR Sodium Chloride 1,000 mls @ 250 mls/hr 05/22/22 08:33 05/22/22 08:57 Sodium Chloride 0.9% 1000 Ml IV 05/22/22 12:32 250 mls/hr .Q4H STA Administration Sodium Chloride Confirm 05/22/22 09:21 Sodium Chloride 0.9% 1000 Ml Administered 05/22/22 09:22 Dose 1,000 mls @ ud .ROUTE .STK-MED ONE Sodium Chloride Confirm 05/22/22 09:25 Sodium Chloride 0.9% 500 Ml Administered 05/22/22 09:26 Dose 500 mls @ ud IV .STK-MED ONE Amiodarone HCl/Dextrose 360 mg in 200 mls @ 33 mls/hr 05/22/22 10:45 05/23/22 05:56 Nexterone 360 Mg/200 Ml Bag IV 06/21/22 10:44 Not Given .Q6H4M VERNA Protocol Amiodarone HCl/Dextrose 360 mg in 200 mls @ 17 mls/hr 05/23/22 08:15 05/27/22 16:08 Nexterone 360 Mg/200 Ml Bag IV 06/22/22 08:14 Not Given .[id number] VERNA Protocol Levofloxacin/Dextrose 500 mg in 100 mls @ 100 mls/hr 05/23/22 20:00 05/23/22 19:37 Levofloxacin 500mg/100ml D5w IV 06/22/22 19:59 100 mls/hr Q24H10 VERNA Administration Levofloxacin/Dextrose 500 mg in 100 mls @ 100 mls/hr 05/24/22 22:00 05/27/22 21:13 Levofloxacin 500mg/100ml D5w IV 06/22/22 19:59 100 mls/hr QPM VERNA Administration Amiodarone HCl 150 mg/ 103 mls @ 618 mls/hr 05/26/22 07:40 05/26/22 07:59 Dextrose IV 05/26/22 07:49 618 mls/hr STAT ONE Administration Protocol Amiodarone HCl 720 mg/ 400.4 mls @ 17 mls/hr 05/27/22 10:00 05/28/22 10:56 Dextrose IV 06/26/22 09:59 0.5 mg/min .[id number] VERNA 16.683 mls/hr Administration Lorazepam 40 mg/ Sodium 100 mls @ ud 05/28/22 14:00 Chloride IV 05/28/22 14:01 .STK-MED ONE Insulin Human Lispro 0 unit 05/20/22 09:51 05/28/22 05:53 Insulin Lispro 1 Unit SQ 06/19/22 09:50 8 unit UD PRN Administration HYPERGLYCEMIA Ketamine HCl 20 mg 05/21/22 19:50 05/21/22 19:51 Ketamine Hcl 50 Mg/Ml IV 05/21/22 19:51 20 mg STAT ONE Administration Ketamine HCl 20 mg 05/21/22 19:53 05/21/22 19:55 Ketamine Hcl 50 Mg/Ml IV 05/21/22 19:54 20 mg STAT ONE Administration Lorazepam 2 mg 05/20/22 01:29 05/20/22 02:24 Lorazepam 2 Mg/1 Ml 2 Mg Vial IV 05/20/22 01:30 2 mg STAT ONE Administration Lorazepam Confirm 05/20/22 02:20 Lorazepam 2 Mg/1 Ml 2 Mg Vial Administered 05/20/22 02:21 Dose 2 mg .ROUTE .STK-MED ONE Lorazepam 1 mg 05/20/22 07:40 05/21/22 13:01 Lorazepam 2 Mg/1 Ml 2 Mg Vial IV 06/19/22 07:39 1 mg Q6H PRN PRN Administration ANXIETY Lorazepam 2 mg 05/22/22 08:35 05/28/22 09:30 Lorazepam 2 Mg/1 Ml 2 Mg Vial IV 06/21/22 08:34 2 mg Q4HPRN PRN Administration AGITATION Methylprednisolone Sodium Succinate Confirm 05/19/22 23:59 Methylprednis Sod Succ 125 Mg/2 Ml Vial Administered 05/20/22 00:00 Dose 125 mg .ROUTE .STK-MED ONE Methylprednisolone Sodium Succinate Confirm 05/20/22 06:10 Methylprednis Sod Succ 125 Mg/2 Ml Vial Administered 05/20/22 06:11 Dose 125 mg .ROUTE .STK-MED ONE Methylprednisolone Sodium Succinate Confirm 05/21/22 17:14 Methylprednis Sod Succ 125 Mg/2 Ml Vial Administered 05/21/22 17:15 Dose 125 mg .ROUTE .STK-MED ONE Methylprednisolone Sodium Succinate Confirm 05/25/22 15:47 Methylprednis Sod Succ 125 Mg/2 Ml Vial Administered 05/25/22 15:48 Dose 125 mg .ROUTE .STK-MED ONE Methylprednisolone Sodium Succinate Confirm 05/26/22 14:44 Methylprednis Sod Succ 125 Mg/2 Ml Vial Administered 05/26/22 14:45 Dose 125 mg .ROUTE .STK-MED ONE Methylprednisolone Sodium Succinate Confirm 05/27/22 16:09 Methylprednis Sod Succ 125 Mg/2 Ml Vial Administered 05/27/22 16:10 Dose 125 mg .ROUTE .STK-MED ONE Metoprolol Tartrate 50 mg 05/20/22 14:00 05/22/22 10:10 Metoprolol Tartrate 50 Mg Tablet PO 06/19/22 13:59 Not Given DAILY VERNA Morphine Sulfate Confirm 05/21/22 19:10 Morphine Sulfate 2 Mg/Ml Inj Administered 05/21/22 19:11 Dose 2 mg .ROUTE .STK-MED ONE Morphine Sulfate 1 mg 05/21/22 19:13 05/21/22 19:14 Morphine Sulfate 2 Mg/Ml Inj IV 05/21/22 19:14 1 mg STAT ONE Administration Mupirocin 1 gm 05/21/22 22:15 05/21/22 22:28 Mupirocin 22 Gm Tube Ointment TP 06/20/22 22:14 1 gm UD VERNA Administration Mupirocin 1 gm 05/22/22 10:00 05/28/22 09:53 Mupirocin 22 Gm Tube Ointment TP 06/20/22 22:14 1 gm BID VERNA Administration Non-Formulary Medication 1 each 05/22/22 09:23 05/22/22 11:42 Pharmacy Dosing Request 05/22/22 09:24 Not Given STAT ONE Olanzapine 10 mg 05/21/22 10:00 05/21/22 09:38 Olanzapine 5 Mg/Tab Orally Disintegrating PO 05/21/22 10:01 10 mg STAT ONE Administration Olanzapine 5 mg 05/21/22 22:00 05/21/22 23:02 Olanzapine 5 Mg/Tab Orally Disintegrating PO 06/20/22 21:59 Not Given QHS VERNA Potassium Bicarbonate 25 meq 05/22/22 02:15 05/22/22 06:13 Potassium Bicarbonate 25 Meq Tab PO 05/22/22 06:16 25 meq Q2H VERNA Administration Propofol 100 mg 05/21/22 19:50 05/21/22 21:16 Propofol 10 Mg/Ml 20ml Vial 1.5 mg/kg (100 mg) 05/21/22 19:51 Not Given IV STAT STA Quetiapine Fumarate 50 mg 05/21/22 14:18 05/21/22 14:45 Quetiapine Fumarate 25 Mg Tablet PO 05/21/22 14:19 50 mg NOW ONE Administration Quetiapine Fumarate 50 mg 05/21/22 22:00 05/22/22 09:58 Quetiapine Fumarate 25 Mg Tablet PO 06/20/22 21:59 Not Given BID VERNA Sodium Chloride Confirm 05/26/22 15:00 Sodium Cl For Inhalation 3 Ml Ud Nebule Administered 05/26/22 15:01 Dose 3 ml IH .STK-MED ONE Sodium Chloride 3 ml 05/26/22 16:07 Sodium Cl For Inhalation 3 Ml Ud Nebule IH 06/25/22 16:06 PRN PRN Sterile Water Confirm 05/19/22 23:59 Water For Injection,Sterile 10 Ml Vial Administered 05/20/22 00:00 Dose 10 ml IJ .STK-MED ONE Sterile Water Confirm 05/20/22 06:10 Water For Injection,Sterile 10 Ml Vial Administered 05/20/22 06:11 Dose 10 ml IJ .STK-MED ONE Intake & Output (Last 24 hours) 05/26/22 05/27/22 05/28/22 05/29/22 11:59 11:59 11:59 11:59 Intake Total 3835 3684 3938 508 Output Total 1400 1600 1850 Balance 2435 2084 2088 508 Weight 72.4 kg 72.4 kg 72.4 kg Microbiology Results (Last 24 hours) 05/23/22 18:56 Sputum - Expectorant Aerobic Culture - Pending 05/23/22 18:56 Sputum - Expectorant Aerobic Organism ID Result 1 - Final Not Reportable 05/23/22 18:56 Sputum - Expectorant Aerobic Organism ID Result 2 - Final Not Reportable 05/23/22 18:56 Sputum - Expectorant Aerobic Organism ID Result 3 - Final Not Reportable 05/23/22 18:56 Sputum - Expectorant Aerobic Organism ID Result 4 - Final Not Reportable 05/23/22 18:56 Sputum - Expectorant Aerobic Bacterial Sensitivity - Final Not Reportable 05/23/22 18:56 Sputum - Expectorant Gram Stain - Pending 05/23/22 18:56 Sputum - Expectorant Sputum Culture - Preliminary POSSIBLE HAEMOPHILUS SPECIES. SENT TO REFERENCE LAB FOR IDENTIFICATION FINAL REPORT TO FOLLOW Laboratory Results (Last 24 hours) 05/28/22 05/28/22 05/28/22 10:58 05:34 04:25 Puncture Site ART LINE pCO2 45 pO2 107 H Base Excess 8.2 H O2 Saturation 95.5 ABG pH 7.47 H ABG HCO3 32.8 H* ABG O2 Sat (Measured) 99.3 A-a Gradient 122 a/A Ratio 0.47 Hemoglobin 10.2 Carboxyhemoglobin 3.4 Methemoglobin 0.4 L Potassium 4.6 Temperature 37.0 POC O2 Flow Rate 40 Vent Mode AC Vent Rate 12 Tidal Volume 600 PEEP 6 POC Glucometer 357 H 398 H 05/28/22 00:12 Puncture Site pCO2 pO2 Base Excess O2 Saturation ABG pH ABG HCO3 ABG O2 Sat (Measured) A-a Gradient a/A Ratio Hemoglobin Carboxyhemoglobin Methemoglobin Potassium Temperature POC O2 Flow Rate Vent Mode Vent Rate Tidal Volume PEEP POC Glucometer 370 H Orders (Last 24 hours) Category Date Time Status Discharge Planning,Consult Routine Discharge 05/28/22 Active Discharge Routine Discharge 05/28/22 Ordered ABG [ARTERIAL BLOOD GASES] DAILY Lab 05/28/22 04:25 Results POCT GLUCOSE Stat Lab 05/28/22 00:12 Completed POCT GLUCOSE Stat Lab 05/28/22 05:34 Completed POCT GLUCOSE Stat Lab 05/28/22 10:58 Completed NaCl 0.9% [Sodium Chloride 0.9%] 80 ml Med 05/28/22 14:00 Discontinued Lorazepam 20 mg/10 ml Mdv [Ativan 20 MG/10 ML MDV ] 40 mg IV UD Discharge Transfer Routine Transfer 05/28/22 Completed Patient Care Notes (Last 24 hours) 05/28/22 13:05 Case Management Note by Eladia Burnham PCP ready for terminal wean. Family agreeable and would like [facility] [place] if DC home becomes appropriate. Spoke with Angélica at [facility] and she spoke with Dr Christensen and order obtained for [facility] admission. Angélica has spoken with son and neice of patient and all are in agreement. [facility] getting paperwork completed at this time. Will DC to [facility]osp[facility] when completed. Initialized on 05/28/22 13:05 - END OF NOTE 05/28/22 12:15 (created 05/28/22 13:13) Case Management Note by Savanna Camarillo DR ROUNDED AND EVALUATED. TALKED WITH PT'S SON. PLAN FOR TERMINAL WEAN. WILL DC TO [facility] TODAY. Initialized on 05/28/22 13:13 - END OF NOTE 05/28/22 05:00 Nursing Note by Eulalio Griggs removed silver ring with gold triangles from right ring finger. placed ring in denture cup with pts label and placed on sink in pts room. Initialized on 05/28/22 05:00 - END OF NOTE - Vitals & Intake/Output Vital Signs: Vital Signs Temperature 99.5 F 05/28/22 14:00 Pulse Rate 101 H 05/28/22 14:00 Respiratory Rate 13 05/28/22 14:00 Blood Pressure 140/68 05/28/22 14:00 O2 Sat by Pulse Oximetry 98 05/28/22 14:00 Intake & Output: Intake & Output 05/26/22 05/27/22 05/28/22 05/29/22 11:59 11:59 11:59 11:59 Intake Total 3835 3684 3938 508 Output Total 1400 1600 1850 Balance 2435 2084 2088 508 Weight 72.4 kg 72.4 kg 72.4 kg - Lab Result Diagrams: 05/27/22 05:26 05/27/22 05:26 Lab Results-Last 24 Hrs: Lab Results-Last 24 Hours 05/28/22 05/28/22 05/28/22 Range/Units 00:12 04:25 05:34 Puncture Site ART LINE pCO2 45 (35-45) mmHg pO2 107 H (75-100) mmHg Base Excess 8.2 H (-2.0-2.0) O2 Saturation 95.5 (94-100) g/dF ABG pH 7.47 H (7.35-7.45) ABG HCO3 32.8 H* (22-28) ABG O2 Sat (Measured) 99.3 (95-100) % Clay Test Pending A-a Gradient 122 a/A Ratio 0.47 Hemoglobin 10.2 Carboxyhemoglobin 3.4 (0.0-6.9) % THgb Methemoglobin 0.4 L (1.4-1.5) % Potassium 4.6 (3.5-5.1) Temperature 37.0 C POC O2 Flow Rate 40 % Vent Mode AC Vent Rate 12 /MIN Tidal Volume 600 cc PEEP 6 cmH2O POC Glucometer 370 H 398 H (74 to 106) mg/dL 05/28/22 Range/Units 10:58 Puncture Site pCO2 (35-45) mmHg pO2 (75-100) mmHg Base Excess (-2.0-2.0) O2 Saturation (94-100) g/dF ABG pH (7.35-7.45) ABG HCO3 (22-28) ABG O2 Sat (Measured) (95-100) % Clay Test A-a Gradient a/A Ratio Hemoglobin Carboxyhemoglobin (0.0-6.9) % THgb Methemoglobin (1.4-1.5) % Potassium (3.5-5.1) Temperature C POC O2 Flow Rate % Vent Mode Vent Rate /MIN Tidal Volume cc PEEP cmH2O POC Glucometer 357 H (74 to 106) mg/dL Micro Results-Entire Visit: Microbiology 05/23/22 18:56 Aerobic Organism ID Result 1 - Final Sputum - Expectorant Not Reportable Aerobic Organism ID Result 2 - Final Not Reportable Aerobic Organism ID Result 3 - Final Not Reportable Aerobic Organism ID Result 4 - Final Not Reportable Aerobic Bacterial Sensitivity - Final Not Reportable 05/23/22 18:56 Sputum Culture - Preliminary Sputum - Expectorant POSSIBLE HAEMOPHILUS SPECIES. SENT TO REFERENCE LAB FOR IDENTIFICATION FINAL REPORT TO FOLLOW 05/20/22 00:30 Blood Culture Gram Stain - Final Blood Not Reportable Blood Culture - Final NO GROWTH 05/20/22 00:32 Blood Culture Gram Stain - Final Blood Not Reportable Blood Culture - Final NO GROWTH Accuchecks Date 05/28/22 Time 11:03 - Radiology Exams Ordered Rad Exams-Entire Visit: Radiology Procedures Category Date Time Status Portable Chest [CHEST 1 VIEW (PORTABLE)] Routine Exams 05/27/22 05:00 Completed - Procedures and Test Procedures and Tests throughout Hospitalization: Therapy Orders & Screens 05/20/22 03:18 Respiratory Therapy Consult ROUTINE Comment: Reason For Exam: 05/20/22 03:25 Oxygen NASAL CANNULA 2 lpm Comment: 05/20/22 03:35 Respiratory Therapy Assessment DAILY Comment: 05/20/22 04:18 BiPap/CPAP ROUTINE Comment: 05/20/22 08:00 RT Screen per Nursing Assess ONCE Comment: Protocol Order Physician Instructions: Greater than 3 points order RT Admission Screen Reason For Exam: Triggered on Admission Diagnosis: COPD Exac & SOB Diagnosis: COPD Exac & SOB Pneumonia: No Home O2: Yes Asthma: Yes CHF: Yes Home CPAP/BIPAP: No Home Nebs/MDI: No Total Points: 12 05/21/22 21:59 Intubate Patient STAT Comment: Diagnosis: EXAC COPD, AMS Discharge Exam Respiratory Exam: respiratory distress, diminished breath sounds, accessory muscle use, crackles/rales, rhonchi, wheezing Cardiovascular Exam: irregular, capillary refill >3 sec Gastrointestinal/Abdomen Exam: soft Final Diagnosis/Problem List - Final Discharge Diagnosis/Problem (1) Acute and chronic respiratory failure with hypoxia Status: Acute Assessment & Plan: Chief Complaint Diagnosis EXAC COPD, AMS Allergies Allergy/AdvReac Type Severity Reaction Status Date / Time Penicillins Allergy Severe Anaphylactic Verified 05/19/22 23:52 Reaction Vital Signs (Last 24 hours) Temp Pulse Resp BP Pulse Ox 05/28/22 14:00 99.5 F 101 H 13 140/68 98 05/28/22 13:00 102 H 13 121/60 98 05/28/22 12:00 99.3 F 105 H 12 112/56 98 05/28/22 11:00 97.9 F 104 H 12 115/56 100 05/28/22 10:51 105 H 12 99 05/28/22 10:00 96 H 12 105/51 98 05/28/22 09:00 101 H 12 112/58 98 05/28/22 08:00 107 H 14 144/68 99 05/28/22 07:00 98.6 F 105 H 16 134/65 100 05/28/22 06:55 104 H 15 100 05/28/22 05:58 110 H 13 145/71 99 05/28/22 04:56 110 H 13 145/71 99 05/28/22 04:00 98 F 113 H 14 137/66 98 05/28/22 03:15 105 H 12 99 05/28/22 03:00 99 H 14 143/69 100 05/28/22 01:58 97.5 F 97 H 13 120/57 100 05/28/22 01:00 97 H 12 122/59 100 05/28/22 00:00 98.7 F 108 H 12 121/59 100 05/27/22 23:00 95 H 12 121/59 100 05/27/22 22:00 99 H 12 [id number] 100 Home Medications Medication Instructions Recorded Confirmed Last Taken Type Amiodarone HCl 200 mg PO DAILY 05/20/22 05/20/22 Unknown History Current Medications Discontinued Medications Generic Name Dose Route Start Last Admin Trade Name Freq PRN Reason Stop Dose Admin Albuterol Sulfate 1 puff 05/20/22 12:22 Albuterol Common Canister Inhaler 06/19/22 12:21 Q4HPRN PRN SHORTNESS OF BREATH/WHEEZING Albuterol Sulfate 2.5 mg 05/20/22 12:22 05/21/22 13:57 Albuterol Sulfate 2.5 Mg/3 Ml [facility] 06/19/22 12:21 2.5 mg Q4H PRN PRN Administration SHORTNESS OF BREATH/WHEEZING Albuterol/Ipratropium 3 ml 05/20/22 03:18 05/28/22 10:28 Ipratropium/Albuterol Sulfate 3 Ml [facility] 06/19/22 03:17 3 ml Q4HRT VERNA Administration Albuterol/Ipratropium 3 ml 05/20/22 15:00 Ipratropium/Albuterol Sulfate 3 Ml [facility]ul[facility] 06/19/22 14:59 QIDRT VERNA Amiodarone HCl 200 mg 05/20/22 14:00 05/22/22 10:10 Amiodarone Hcl 200 Mg Tab PO 06/19/22 13:59 Not Given DAILY VERNA Amiodarone HCl Confirm 05/26/22 14:49 Amiodarone Hcl 150 Mg/3 Ml Vial Administered 05/26/22 14:50 Dose 150 mg .ROUTE .STK-MED ONE Apixaban 5 mg 05/20/22 14:00 05/21/22 22:55 Apixaban 2.5 Mg Tablet PO 06/19/22 13:59 5 mg BID VERNA Administration Artificial Tears 1 gm 05/21/22 22:00 05/27/22 21:17 Lanolin/Min Oil/Petrolat Wht 3.5 Gm Tube OP 06/20/22 21:59 1 gm BID VERNA Administration Aspirin 325 mg 05/20/22 23:58 Aspirin 325 Mg Tablet.Ec PO 05/20/22 23:59 STAT ONE Aspirin 324 mg 05/20/22 00:04 05/20/22 00:06 Aspirin 81 Mg Tab.Chew PO 05/20/22 00:05 324 mg STAT ONE Administration Aspirin Confirm 05/20/22 00:03 Aspirin 81 Mg Tab.Chew Administered 05/20/22 00:04 Dose 324 mg .ROUTE .STK-MED ONE Chlorhexidine Gluconate 15 ml 05/21/22 22:10 05/28/22 09:53 Chlorhexidine Gluconate 15 Ml Mouthwash MM 06/20/22 22:09 15 ml BID VERNA Administration Cisatracurium Besylate 10 mg 05/21/22 20:00 05/21/22 20:02 Cisatracurium 20 Mg/10 Ml Vial 0.15 mg/kg (10 mg) 05/21/22 20:01 10 mg IV Administration STAT STA Methylprednisolone Sodium 0 mg 05/19/22 23:48 05/20/22 00:00 Succinate 125 mg/ Sterile IV 05/19/22 23:49 125 mg Water 2 ml STAT ONE Administration Methylprednisolone Sodium 0 mg 05/20/22 06:00 05/28/22 05:54 Succinate 60 mg/ Sterile Water IV 06/19/22 05:59 60 mg 2 ml Q6HT [facility] Administration Diltiazem HCl 5 mg 05/20/22 17:00 05/22/22 21:38 Diltiazem Hcl Iv 5 Mg/Ml Vial IV 06/19/22 16:59 Not Given Q12H [facility] Diltiazem HCl Confirm 05/21/22 06:26 Diltiazem Hcl Iv 5 Mg/Ml Vial Administered 05/21/22 06:27 Dose 50 mg IV .STK-MED ONE Docusate Sodium 100 mg 05/20/22 12:22 Docusate Sodium 100 Mg Capsule PO 06/19/22 12:21 DAILY PRN PRN CONSTIPATION Doxycycline Hyclate Confirm 05/20/22 00:03 Doxycycline Hyclate 100 Mg/Vial Injection Administered 05/20/22 00:04 Dose 100 mg IV .STK-MED ONE Doxycycline Hyclate 100 mg 05/20/22 10:00 Doxycycline Hyclate 100 Mg Tablet PO 06/19/22 09:59 BID [facility] Enoxaparin Sodium 40 mg 05/22/22 10:00 05/23/22 10:19 Enoxaparin Sodium 40 Mg/0.4 Ml Syringe SQ 06/21/22 09:59 40 mg DAILY VERNA Administration Enoxaparin Sodium 70 mg 05/24/22 10:00 05/25/22 21:35 Enoxaparin Sodium 80 Mg/0.8 Ml Syringe SQ 06/23/22 09:59 70 mg BID VERNA Administration Enoxaparin Sodium 80 mg 05/26/22 10:00 05/28/22 09:33 Enoxaparin Sodium 80 Mg/0.8 Ml Syringe SQ 06/23/22 09:59 80 mg BID VERNA Administration Famotidine 20 mg 05/20/22 10:00 05/28/22 09:49 Famotidine 20 Mg/1 Vial IV 06/19/22 09:59 20 mg Q12HT VERNA Administration Furosemide 40 mg 05/20/22 10:00 05/22/22 13:48 Furosemide 40 Mg/4 Ml Vial IV 06/19/22 09:59 Not Given Q12H VERNA Haloperidol Lactate 5 mg 05/21/22 12:17 05/21/22 12:25 Haloperidol Lactate 5 Mg/Ml Vial IV 06/20/22 12:16 5 mg Q8H PRN PRN Administration AGITATION Haloperidol Lactate 5 mg 05/24/22 07:00 05/24/22 09:44 Haloperidol Lactate 5 Mg/Ml Vial IV 05/24/22 07:01 Not Given ONCE ONE Hydroxyzine HCl 25 mg 05/20/22 15:00 05/22/22 17:18 Hydroxyzine Hcl 25 Mg Tablet PO 06/19/22 14:59 Not Given TID VERNA Sodium Chloride 1,000 mls @ 999 mls/hr 05/19/22 23:48 05/20/22 02:54 Sodium Chloride 0.9% 1000 Ml IV 05/20/22 00:48 Infused .Q1H1M STA Infusion Azithromycin 500 mg in 250 mls @ 250 mls/hr 05/19/22 23:48 05/20/22 00:01 Zithromax 500 Mg/ 250 Ml Nacl Premix IV 05/20/22 00:47 Not Given STAT STA Doxycycline Hyclate 100 mg/ 100 mls @ 100 mls/hr 05/20/22 10:00 05/20/22 00:12 Dextrose IV 06/19/22 09:59 100 mls/hr Q12HT VERNA Administration Azithromycin Confirm 05/19/22 23:59 Zithromax 500 Mg/ 250 Ml Nacl Premix Administered 05/20/22 00:00 Dose 500 mg in 250 mls @ ud IV .STK-MED ONE Sodium Chloride Confirm 05/19/22 23:59 Sodium Chloride 0.9% 1000 Ml Administered 05/20/22 00:00 Dose 1,000 mls @ ud .ROUTE .STK-MED ONE Dextrose Confirm 05/20/22 00:03 D5w 100ml Mini Bag 100 Ml Administered 05/20/22 00:04 Dose 100 mls @ ud IV .STK-MED ONE Sodium Chloride 1,000 mls @ 75 mls/hr 05/20/22 03:18 05/28/22 06:04 Sodium Chloride 0.9% 1000 Ml IV 06/19/22 03:17 75 mls/hr .[id number] VERNA Administration Potassium Chloride 100 mls @ 50 mls/hr 05/21/22 07:00 05/21/22 23:35 Potassium Chloride 20 Meq In Water 100ml IV 05/21/22 14:59 50 mls/hr Q2H VERNA Administration Propofol 100 mls @ 2.019 mls/hr 05/21/22 19:50 05/28/22 14:09 Propofol 1000 Mg/100 Ml Bottle IV 06/20/22 19:49 0 mcg/kg/min .Q24H PRN 0 mls/hr SEDATION FOR VENT Titration Protocol 5 MCG/KG/MIN Cisatracurium Besylate 200 mg/ 200 mls @ 8.076 mls/hr 05/21/22 20:11 05/22/22 10:40 Dextrose IV 06/20/22 20:10 0 mcg/kg/min .Q24H PRN 0 mls/hr PARALYSIS Titration Protocol 2 MCG/KG/MIN Potassium Chloride Confirm 05/21/22 23:33 Potassium Chloride 20 Meq In Water 100ml Administered 05/21/22 23:34 Dose 100 mls @ ud IV .STK-MED ONE Fentanyl Citrate 1,500 mcg/ 150 mls @ ud 05/22/22 09:00 Sodium Chloride IV 05/22/22 09:01 .STK-MED ONE Fentanyl Citrate 1,500 mcg/ 150 mls @ 6.7 mls/hr 05/22/22 09:00 05/28/22 13: 51 Sodium Chloride IV 06/21/22 08:59 0.5 mcg/kg/hr .[id number] PRN 3.35 mls/hr PAIN Titration Protocol 1 MCG/KG/HR Sodium Chloride 1,000 mls @ 250 mls/hr 05/22/22 08:33 05/22/22 08:57 Sodium Chloride 0.9% 1000 Ml IV 05/22/22 12:32 250 mls/hr .Q4H STA Administration Sodium Chloride Confirm 05/22/22 09:21 Sodium Chloride 0.9% 1000 Ml Administered 05/22/22 09:22 Dose 1,000 mls @ ud .ROUTE .STK-MED ONE Sodium Chloride Confirm 05/22/22 09:25 Sodium Chloride 0.9% 500 Ml Administered 05/22/22 09:26 Dose 500 mls @ ud IV .STK-MED ONE Amiodarone HCl/Dextrose 360 mg in 200 mls @ 33 mls/hr 05/22/22 10:45 05/23/22 05:56 Nexterone 360 Mg/200 Ml Bag IV 06/21/22 10:44 Not Given .Q6H4M VERNA Protocol Amiodarone HCl/Dextrose 360 mg in 200 mls @ 17 mls/hr 05/23/22 08:15 05/27/22 16:08 Nexterone 360 Mg/200 Ml Bag IV 06/22/22 08:14 Not Given .[id number] VERNA Protocol Levofloxacin/Dextrose 500 mg in 100 mls @ 100 mls/hr 05/23/22 20:00 05/23/22 19:37 Levofloxacin 500mg/100ml D5w IV 06/22/22 19:59 100 mls/hr Q24H10 VERNA Administration Levofloxacin/Dextrose 500 mg in 100 mls @ 100 mls/hr 05/24/22 22:00 05/27/22 21:13 Levofloxacin 500mg/100ml D5w IV 06/22/22 19:59 100 mls/hr QPM VERNA Administration Amiodarone HCl 150 mg/ 103 mls @ 618 mls/hr 05/26/22 07:40 05/26/22 07:59 Dextrose IV 05/26/22 07:49 618 mls/hr STAT ONE Administration Protocol Amiodarone HCl 720 mg/ 400.4 mls @ 17 mls/hr 05/27/22 10:00 05/28/22 10:56 Dextrose IV 06/26/22 09:59 0.5 mg/min .[id number] VERNA 16.683 mls/hr Administration Lorazepam 40 mg/ Sodium 100 mls @ ud 05/28/22 14:00 Chloride IV 05/28/22 14:01 .STK-MED ONE Insulin Human Lispro 0 unit 05/20/22 09:51 05/28/22 05:53 Insulin Lispro 1 Unit SQ 06/19/22 09:50 8 unit UD PRN Administration HYPERGLYCEMIA Ketamine HCl 20 mg 05/21/22 19:50 05/21/22 19:51 Ketamine Hcl 50 Mg/Ml IV 05/21/22 19:51 20 mg STAT ONE Administration Ketamine HCl 20 mg 05/21/22 19:53 05/21/22 19:55 Ketamine Hcl 50 Mg/Ml IV 05/21/22 19:54 20 mg STAT ONE Administration Lorazepam 2 mg 05/20/22 01:29 05/20/22 02:24 Lorazepam 2 Mg/1 Ml 2 Mg Vial IV 05/20/22 01:30 2 mg STAT ONE Administration Lorazepam Confirm 05/20/22 02:20 Lorazepam 2 Mg/1 Ml 2 Mg Vial Administered 05/20/22 02:21 Dose 2 mg .ROUTE .STK-MED ONE Lorazepam 1 mg 05/20/22 07:40 05/21/22 13:01 Lorazepam 2 Mg/1 Ml 2 Mg Vial IV 06/19/22 07:39 1 mg Q6H PRN PRN Administration ANXIETY Lorazepam 2 mg 05/22/22 08:35 05/28/22 09:30 Lorazepam 2 Mg/1 Ml 2 Mg Vial IV 06/21/22 08:34 2 mg Q4HPRN PRN Administration AGITATION Methylprednisolone Sodium Succinate Confirm 05/19/22 23:59 Methylprednis Sod Succ 125 Mg/2 Ml Vial Administered 05/20/22 00:00 Dose 125 mg .ROUTE .STK-MED ONE Methylprednisolone Sodium Succinate Confirm 05/20/22 06:10 Methylprednis Sod Succ 125 Mg/2 Ml Vial Administered 05/20/22 06:11 Dose 125 mg .ROUTE .STK-MED ONE Methylprednisolone Sodium Succinate Confirm 05/21/22 17:14 Methylprednis Sod Succ 125 Mg/2 Ml Vial Administered 05/21/22 17:15 Dose 125 mg .ROUTE .STK-MED ONE Methylprednisolone Sodium Succinate Confirm 05/25/22 15:47 Methylprednis Sod Succ 125 Mg/2 Ml Vial Administered 05/25/22 15:48 Dose 125 mg .ROUTE .STK-MED ONE Methylprednisolone Sodium Succinate Confirm 05/26/22 14:44 Methylprednis Sod Succ 125 Mg/2 Ml Vial Administered 05/26/22 14:45 Dose 125 mg .ROUTE .STK-MED ONE Methylprednisolone Sodium Succinate Confirm 05/27/22 16:09 Methylprednis Sod Succ 125 Mg/2 Ml Vial Administered 05/27/22 16:10 Dose 125 mg .ROUTE .STK-MED ONE Metoprolol Tartrate 50 mg 05/20/22 14:00 05/22/22 10:10 Metoprolol Tartrate 50 Mg Tablet PO 06/19/22 13:59 Not Given DAILY [facility] Morphine Sulfate Confirm 05/21/22 19:10 Morphine Sulfate 2 Mg/Ml Inj Administered 05/21/22 19:11 Dose 2 mg .ROUTE .STK-MED ONE Morphine Sulfate 1 mg 05/21/22 19:13 05/21/22 19:14 Morphine Sulfate 2 Mg/Ml Inj IV 05/21/22 19:14 1 mg STAT ONE Administration Mupirocin 1 gm 05/21/22 22:15 05/21/22 22:28 Mupirocin 22 Gm Tube Ointment TP 06/20/22 22:14 1 gm UD VERNA Administration Mupirocin 1 gm 05/22/22 10:00 05/28/22 09:53 Mupirocin 22 Gm Tube Ointment TP 06/20/22 22:14 1 gm BID VERNA Administration Non-Formulary Medication 1 each 05/22/22 09:23 05/22/22 11:42 Pharmacy Dosing Request 05/22/22 09:24 Not Given STAT ONE Olanzapine 10 mg 05/21/22 10:00 05/21/22 09:38 Olanzapine 5 Mg/Tab Orally Disintegrating PO 05/21/22 10:01 10 mg STAT ONE Administration Olanzapine 5 mg 05/21/22 22:00 05/21/22 23:02 Olanzapine 5 Mg/Tab Orally Disintegrating PO 06/20/22 21:59 Not Given QHS VERNA Potassium Bicarbonate 25 meq 05/22/22 02:15 05/22/22 06:13 Potassium Bicarbonate 25 Meq Tab PO 05/22/22 06:16 25 meq Q2H VERNA Administration Propofol 100 mg 05/21/22 19:50 05/21/22 21:16 Propofol 10 Mg/Ml 20ml Vial 1.5 mg/kg (100 mg) 05/21/22 19:51 Not Given IV STAT STA Quetiapine Fumarate 50 mg 05/21/22 14:18 05/21/22 14:45 Quetiapine Fumarate 25 Mg Tablet PO 05/21/22 14:19 50 mg NOW ONE Administration Quetiapine Fumarate 50 mg 05/21/22 22:00 05/22/22 09:58 Quetiapine Fumarate 25 Mg Tablet PO 06/20/22 21:59 Not Given BID VERNA Sodium Chloride Confirm 05/26/22 15:00 Sodium Cl For Inhalation 3 Ml Ud Nebule Administered 05/26/22 15:01 Dose 3 ml IH .STK-MED ONE Sodium Chloride 3 ml 05/26/22 16:07 Sodium Cl For Inhalation 3 Ml Ud Nebule IH 06/25/22 16:06 PRN PRN Sterile Water Confirm 05/19/22 23:59 Water For Injection,Sterile 10 Ml Vial Administered 05/20/22 00:00 Dose 10 ml IJ .STK-MED ONE Sterile Water Confirm 05/20/22 06:10 Water For Injection,Sterile 10 Ml Vial Administered 05/20/22 06:11 Dose 10 ml IJ .STK-MED ONE Intake & Output (Last 24 hours) 05/26/22 05/27/22 05/28/22 05/29/22 11:59 11:59 11:59 11:59 Intake Total 3835 3684 3938 508 Output Total 1400 1600 1850 Balance 2435 2084 2088 508 Weight 72.4 kg 72.4 kg 72.4 kg Microbiology Results (Last 24 hours) 05/23/22 18:56 Sputum - Expectorant Aerobic Culture - Pending 05/23/22 18:56 Sputum - Expectorant Aerobic Organism ID Result 1 - Final Not Reportable 05/23/22 18:56 Sputum - Expectorant Aerobic Organism ID Result 2 - Final Not Reportable 05/23/22 18:56 Sputum - Expectorant Aerobic Organism ID Result 3 - Final Not Reportable 05/23/22 18:56 Sputum - Expectorant Aerobic Organism ID Result 4 - Final Not Reportable 05/23/22 18:56 Sputum - Expectorant Aerobic Bacterial Sensitivity - Final Not Reportable 05/23/22 18:56 Sputum - Expectorant Gram Stain - Pending 05/23/22 18:56 Sputum - Expectorant Sputum Culture - Preliminary POSSIBLE HAEMOPHILUS SPECIES. SENT TO REFERENCE LAB FOR IDENTIFICATION FINAL REPORT TO FOLLOW Laboratory Results (Last 24 hours) 05/28/22 05/28/22 05/28/22 10:58 05:34 04:25 Puncture Site ART LINE pCO2 45 pO2 107 H Base Excess 8.2 H O2 Saturation 95.5 ABG pH 7.47 H ABG HCO3 32.8 H* ABG O2 Sat (Measured) 99.3 A-a Gradient 122 a/A Ratio 0.47 Hemoglobin 10.2 Carboxyhemoglobin 3.4 Methemoglobin 0.4 L Potassium 4.6 Temperature 37.0 POC O2 Flow Rate 40 Vent Mode AC Vent Rate 12 Tidal Volume 600 PEEP 6 POC Glucometer 357 H 398 H 05/28/22 00:12 Puncture Site pCO2 pO2 Base Excess O2 Saturation ABG pH ABG HCO3 ABG O2 Sat (Measured) A-a Gradient a/A Ratio Hemoglobin Carboxyhemoglobin Methemoglobin Potassium Temperature POC O2 Flow Rate Vent Mode Vent Rate Tidal Volume PEEP POC Glucometer 370 H Orders (Last 24 hours) Category Date Time Status Discharge Planning,Consult Routine Discharge 05/28/22 Active Discharge Routine Discharge 05/28/22 Ordered ABG [ARTERIAL BLOOD GASES] DAILY Lab 05/28/22 04:25 Results POCT GLUCOSE Stat Lab 05/28/22 00:12 Completed POCT GLUCOSE Stat Lab 05/28/22 05:34 Completed POCT GLUCOSE Stat Lab 05/28/22 10:58 Completed NaCl 0.9% [Sodium Chloride 0.9%] 80 ml Med 05/28/22 14:00 Discontinued Lorazepam 20 mg/10 ml Mdv [Ativan 20 MG/10 ML MDV ] 40 mg IV UD Discharge Transfer Routine Transfer 05/28/22 Completed Patient Care Notes (Last 24 hours) 05/28/22 13:05 Case Management Note by Eladia Burnham PCP ready for terminal wean. Family agreeable and would like [facility] [place] if DC home becomes appropriate. Spoke with Angélica at [facility] and she spoke with Dr Christensen and order obtained for [facility] admission. Angélica has spoken with son and neice of patient and all are in agreement. [facility] getting paperwork completed at this time. Will DC to [facility] Hospice when completed. Initialized on 05/28/22 13:05 - END OF NOTE 05/28/22 12:15 (created 05/28/22 13:13) Case Management Note by Savanna Camarillo DR ROUNDED AND EVALUATED. TALKED WITH PT'S SON. PLAN FOR TERMINAL WEAN. WILL DC TO [facility] TODAY. Initialized on 05/28/22 13:13 - END OF NOTE 05/28/22 05:00 Nursing Note by Eulalio Griggs removed silver ring with gold triangles from right ring finger. placed ring in denture cup with pts label and placed on sink in pts room. Initialized on 05/28/22 05:00 - END OF NOTE Code(s): J96.21 - ACUTE AND CHRONIC RESPIRATORY FAILURE WITH HYPOXIA (2) Acute on chronic diastolic congestive heart failure, NYHA class 4 Status: Acute Code(s): I50.33 - ACUTE ON CHRONIC DIASTOLIC (CONGESTIVE) HEART FAILURE (3) COPD exacerbation Status: Acute Code(s): J44.1 - CHRONIC OBSTRUCTIVE PULMONARY DISEASE W (ACUTE) EXACERBATION (4) Alcoholic brain degeneration Status: Chronic Code(s): F10.20 - ALCOHOL DEPENDENCE, UNCOMPLICATED; G31.2 - DEGENERATION OF NERVOUS SYSTEM DUE TO ALCOHOL (5) Delirium due to multiple etiologies Status: Resolved Code(s): F05 - DELIRIUM DUE TO KNOWN PHYSIOLOGICAL CONDITION - Discharge Discharge Date: 05/28/22 Disposition: Hospice @ [facility] Condition: Poor Prescriptions: No Action Albuterol Common Canister [Ventolin Common Canister] 1 puff IH Q4-6HPRN PRN PRN Reason: Shortness Of Breath/Wheezing Apixaban [Eliquis 5 mg Tablet] 5 mg PO BID #30 tablet Metoprolol Tartrate 50 mg [Lopressor 50 MG] 50 mg PO DAILY Docusate Sodium [Colace] 100 mg PO DAILY PRN PRN PRN Reason: Constipation Furosemide 40 mg [Lasix 40 MG] 40 mg PO DAILY #30 tablet Hydroxyzine HCl 25 mg [Atarax 25 mg] 25 mg PO TID #30 Albuterol/Ipratropium 3ml Neb* [DUONEB 0.5-3 MG/3 ml Neb] 3 ml IH QIDRT #30 packet Albuterol 2.5 mg/3 ml Neb [Proventil 2.5 mg/3 ml Neb] 2.5 mg IH Q4H PRN PRN #30 packet PRN Reason: Shortness Of Breath/Wheezing Amiodarone HCl 200 mg PO DAILY Follow up with: TASIA CHRISTENSEN MD [Primary Care Provider] -
== END 2022-05-28 14:08 | disposition hospice, home (50) | DRG 189 ==
LOC: ED 23:33 → MED SURG 05-20 03:15 → OBSVTOIN 05-21 12:00 → ICU 05-21 20:00
PROVIDERS: ADMIT General Practice; ATTEND General Practice
DX: J96.21 Acute and chronic respiratory failure with hypoxia (principal); I50.33 Acute on chronic diastolic (congestive) heart failure; J44.1 Chronic obstructive pulmonary disease with (acute) exacerbation; F05 Delirium due to known physiological condition; I11.0 Hypertensive heart disease with heart failure; F10.20 Alcohol dependence, uncomplicated; G31.2 Degeneration of nervous system due to alcohol; F41.9 Anxiety disorder, unspecified; I25.10 Atherosclerotic heart disease of native coronary artery without angina pectoris; I48.91 Unspecified atrial fibrillation; R41.82 Altered mental status, unspecified; D64.9 Anemia, unspecified; Z79.899 Other long term (current) drug therapy; Z20.828 Contact with and (suspected) exposure to other viral communicable diseases; Z79.01 Long term (current) use of anticoagulants; Z72.0 Tobacco use
CPT/HCPCS: 0241U; 31500; 36000; 36415; 36600; 71045; 80048; 80053; 82248; 82375; 82803; 82947; 83036; 83605; 83735; 83880; 84132; 84145; 84443; 84484; 85025; 85027; 85379; 87040; 87070; 87077; 93005; 93041; 93268; 94002; 94003; 94640; 94760; 94762; 96360; 96374; 96375; 99285; G0378; J0282; J0456; J1630; J1650; J1817; J1940; J1956; J2060; J2270; J2704; J2930; J3010; J3480; J7609; A9270-GY

== ENCOUNTER 2022-05-28 14:08 | Inpatient (IN) | payer OTHER ==
[2022-05-28] MEDS ORDERED: WATER IV SCH (14:20)
[2022-05-28] MEDS ORDERED: FENTANYL 500 MCG/10 ML VIAL 1,500 MCG in Sodium Chloride 0.9% 150 ML 120 ML IV PRN (14:20)
[2022-05-28] MEDS ORDERED: DEXTROSE IV SCH (14:20)
[2022-05-28] MEDS ORDERED: CORDARONE IV SCH (14:20)
[2022-05-28] MEDS ORDERED: PHARMACY DOSING REQUIRED: MORPHINE PCA IV STA (14:20)
[2022-05-28] MEDS ORDERED: Ativan 20 MG/10 ML MDV*** 40 MG in D5w 100ML Mini Bag 100 ML 80 ML IV PRN (14:20)
[2022-05-28] MEDS ORDERED: Sodium Chloride 0.9% 1000 ML 1,000 ML IV SCH ×2 (14:20→16:00)
[2022-05-28] MEDS ORDERED: Ativan 2 MG/1 ML VIAL IV PRN (14:20)
[2022-05-28] MEDS: MORPHINE SULFATE 2 MG INJ IV PRN ×4 (14:30→15:30)
[2022-05-28] MEDS: Ativan 2 MG/1 ML VIAL IV PRN ×4 (14:30→15:30)
[2022-05-28] MEDS ORDERED: Ativan 20 MG/10 ML MDV*** 40 MG in D5w 100ML Mini Bag 100 ML 80 ML IV SCH (16:00)
[2022-05-28] MEDS: Morphine PCA 1 MG/ML IV PRN ×2 (16:42→23:56)
[2022-05-28 19:29] VITALS: O2SAT 60
--- NOTE | 2022-05-28 21:14 | PCM.HP ---
History of Present Illness - Chief Complaint Chief Complaint: TERMINAL WEAN, COMFORT CARE History of Present Illness: is a 71 year old male. admitted as general inpatient hospice care for respiratory failure and CHF - Review of Systems All Other Systems: Unable due to condition Medications & Allergies Home Medications: Home Medication List Albuterol Common Canister [Ventolin Common Canister] 1 puff IH Q4-6HPRN PRN 09/06/21 [History Confirmed 05/20/22] Apixaban [Eliquis 5 mg Tablet] 5 mg PO BID #30 tablet 04/25/22 [Rx Confirmed 05/20/22] Docusate Sodium [Colace] 100 mg PO DAILY PRN PRN 04/28/22 [History Confirmed 05/20/22] Metoprolol Tartrate 50 mg [Lopressor 50 MG] 50 mg PO DAILY 04/28/22 [History Confirmed 05/20/22] Albuterol 2.5 mg/3 ml Neb [Proventil 2.5 mg/3 ml Neb] 2.5 mg IH Q4H PRN PRN #30 packet 05/01/22 [Rx Confirmed 05/20/22] Albuterol/Ipratropium 3ml Neb* [DUONEB 0.5-3 MG/3 ml Neb] 3 ml IH QIDRT #30 packet 05/01/22 [Rx Confirmed 05/20/22] Furosemide 40 mg [Lasix 40 MG] 40 mg PO DAILY #30 tablet 05/01/22 [Rx Confirmed 05/20/22] Hydroxyzine HCl 25 mg [Atarax 25 mg] 25 mg PO TID #30 05/01/22 [Rx Confirmed 05/20/22] Amiodarone HCl 200 mg PO DAILY 05/20/22 [History Confirmed 05/20/22] Allergies/Adverse Reactions: Allergies Allergy/AdvReac Type Severity Reaction Status Date / Time Penicillins Allergy Severe Anaphylactic Verified 05/19/22 23:52 Reaction - Past Medical History Past Medical History: Yes Neurological History: Stroke ENT History: No Pertinent History Cardiac History: Arrhythmia, Congestive Heart Failure, Coronary Artery Disease, Hypertension, Other Respiratory History: COPD Endocrine Medical History: No Pertinent History, Liver Disease Musculoskelatal History: No Pertinent History GI Medical History: Cirrhosis, Other History: No Pertinent History Pyscho-Social History: No Pertinent History Male Reproductive Disorders: No Pertinent History Comment: Atrial Fibrillation; Venous Insufficiency - Past Surgical History Past Surgical History: Yes Neuro Surgical History: No Pertinent History Cardiac History: Vascular Surgery Respiratory Surgery: No Pertinent History GI Surgical History: No Pertinent History Genitourinary Surgical Hx: No Pertinent History Musculskeletal Surgical Hx: No Pertinent History Male Surgical History: No Pertinent History Other Surgical History: stent to tono femoral artery, caroditectomy. Patient is a poor historian. History recalled from previous admission. - Social History Smoking Status: Current every day smoker How long have you smoked: years Exposure to second hand smoke: Yes Alcohol: None Drug Use: none Significant Family History: no pertinent family hx - Physical Exam Vital Signs: Vital Signs - 24 hr Temp Pulse Resp Pulse Ox 05/28/22 19:27 98.2 F 116 H 18 60 L Respiratory Exam: diminished breath sounds, accessory muscle use, crackles/rales, rhonchi, wheezing Cardiovascular Exam: irregular, capillary refill >3 sec, edema Gastrointestinal/Abdomen Exam: soft Skin Exam: dry Assessment/Plan (1) Hospice care patient Current Visit: Yes Status: Acute Assessment & Plan: Chief Complaint Diagnosis TERMINAL WEAN, COMFORT CARE Allergies Allergy/AdvReac Type Severity Reaction Status Date / Time Penicillins Allergy Severe Anaphylactic Verified 05/19/22 23:52 Reaction Vital Signs (Last 24 hours) Temp Pulse Resp Pulse Ox 05/28/22 19:27 98.2 F 116 H 18 60 L Current Medications Generic Name Dose Route Start Last Admin Trade Name Freq PRN Reason Stop Dose Admin Artificial Tears 1 gm 05/28/22 22:00 Lanolin/Min Oil/Petrolat Wht 3.5 Gm Tube OP 06/20/22 21:59 BID VERNA Lorazepam 40 mg/ Dextrose 100 mls @ 5 mls/hr 05/28/22 16:00 05/28/22 16:15 IV 06/27/22 15:59 2 mg/hr .Q20H VERNA 5 mls/hr Administration Protocol 2 MG/HR Sodium Chloride 1,000 mls @ 30 mls/hr 05/28/22 16:00 Sodium Chloride 0.9% 1000 Ml IV 06/27/22 15:59 .Q24H VERNA Lorazepam 2 mg 02/20/23 14:22 05/28/22 15:30 Lorazepam 2 Mg/1 Ml 2 Mg Vial IV 06/27/22 14:21 2 mg PRN PRN Administration ANXIETY/AGITATION Morphine Sulfate 2 mg 05/28/22 14:21 05/28/22 15:30 Morphine Sulfate 2 Mg/Ml Inj IV 06/02/22 14:20 2 mg PRN PRN Administration PAIN Morphine Sulfate 30 mg 05/28/22 15:37 05/28/22 16:42 Morphine Sulfate 1 Mg/Ml Lathe Set Up Person 30 Ml Vial IV 06/02/22 15:36 30 mg PRN PRN Administration PAIN Discontinued Medications Generic Name Dose Route Start Last Admin Trade Name Freq PRN Reason Stop Dose Admin Lorazepam 40 mg/ Dextrose 100 mls @ 5 mls/hr 05/28/22 14:20 IV 06/27/22 14:19 .Q20H PRN SEDATION FOR VENT Protocol 2 MG/HR Sodium Chloride 1,000 mls @ 75 mls/hr 05/28/22 14:20 Sodium Chloride 0.9% 1000 Ml IV 06/19/22 03:17 .[id number] VERNA Fentanyl Citrate 1,500 mcg/ 150 mls @ 6.7 mls/hr 05/28/22 14:20 Sodium Chloride IV 06/21/22 08:59 .[id number] PRN PAIN Protocol 1 MCG/KG/HR Amiodarone HCl 720 mg/ 400.4 mls @ 17 mls/hr 05/28/22 14:20 Dextrose IV 06/26/22 09:59 .[id number] [facility] Intake & Output (Last 24 hours) 05/26/22 05/27/22 05/28/22 05/29/22 11:59 11:59 11:59 11:59 Intake Total 930 Output Total 950 1600 Balance -950 -670 Weight 72.4 kg Orders (Last 24 hours) Category Date Time Status Bedrest ROUTINE Activity 05/28/22 14:20 Active Admit as Inpatient ROUTINE Care 05/28/22 14:20 Active Catheter Care Record Q6H Care 05/28/22 14:20 Active Miscellaneous Nursing Order ROUTINE Care 05/28/22 14:20 Active NPO (ED) STAT Care 05/28/22 14:20 Active Oral Care Q2H Care 05/28/22 14:20 Active Infection Control Consult ROUTINE Cons 05/28/22 17:14 Active Infection Control Consult ROUTINE Cons 05/28/22 17:25 Active NPO Diet 05/28/22 14:20 Active D5w 100 ml [D5w 100ML Mini Bag 100 ML] 80 ml Med 05/28/22 14:20 Discontinued Lorazepam 20 mg/10 ml Mdv [Ativan 20 MG/10 ML MDV ] 40 mg IV 2 mg/hr D5w 100 ml [D5w 100ML Mini Bag 100 ML] 80 ml Med 05/28/22 16:00 Active Lorazepam 20 mg/10 ml Mdv [Ativan 20 MG/10 ML MDV ] 40 mg IV 2 mg/hr D5w 500 ml [Dextrose 5%/Water IV Soln. 500 ML] 386 ml Med 05/28/22 14:20 Discontinued Amiodarone HCl 150 mg/3 ml [Cordarone 150 MG/3 ML Injection] 720 mg IV 17 mls/hr Lanolin/Min Oil/Petrolat Wht [Lubrifresh P.M. 3.5 gm Med 05/28/22 22:00 Active Ointment] 1 gm OP BID Lorazepam 2 mg/1 ml [Ativan 2 MG/1 ML VIAL] Med 05/28/22 14:22 Active 2 mg IV PRN PRN Morphine Sulfate * [Morphine REHABILITATION ENGINEER 1 MG/ML] Med 05/28/22 15:37 Active 30 mg IV PRN PRN Morphine Sulfate 2 mg Inj Med 05/28/22 14:21 Active 2 mg IV PRN PRN NaCl 0.9% 1000 ml [Sodium Chloride 0.9% 1000 ML] 1,000 Med 05/28/22 16:00 Active ml IV 30 mls/hr NaCl 0.9% 1000 ml [Sodium Chloride 0.9% 1000 ML] 1,000 Med 05/28/22 14:20 Discontinued ml IV 75 mls/hr NaCl 0.9% 150 ml [Sodium Chloride 0.9% 150 ML] 120 ml Med 05/28/22 14:20 Discontinued Fentanyl Citrate/Pf [Fentanyl 500 Mcg/10 ml Vial] 1,500 mcg IV 1 mcg/kg/hr Patient Care Notes (Last 24 hours) 05/28/22 19:26 Nursing Note by Eulalio Griggs Received pt lying in bed on morphine and ativan drip. Pt appears to be comfortable at this time. Will cont to monitor. Initialized on 05/28/22 19:26 - END OF NOTE 05/28/22 16:54 Nursing Note by Nelson Perez Pt medications changed per [facility]. Pt is now on continuous Morphine gtt and continuous Ativan gtt. Fentanyl gtt discontinued. There was approx 102 ml of medication remaining in bag. This was measured and wasted in the controlled substances container ([employer] drug disposal) by this nurse and witnessed by A Juliet RN. Addendum entered by Nelson Perez 05/28/22 17:00: Unable to waste fentanyl in Pyxis or MAR D/T pt status change to GIP and a new medical record number. Initialized on 05/28/22 16:54 - END OF NOTE 05/28/22 15:11 Nursing Note by Ladonna Chung [facility] notified at 1406 that family wished to discontinue life support and wants no resuscitative measures at this time. [facility] reports that patient is not a candidate for donation and would like to be notified of cardiac time of . Initialized on 05/28/22 15:11 - END OF NOTE Code(s): Z51.5 - ENCOUNTER FOR PALLIATIVE CARE (2) Acute and chronic respiratory failure with hypoxia Current Visit: No Status: Acute Code(s): J96.21 - ACUTE AND CHRONIC RESPIRATORY FAILURE WITH HYPOXIA (3) Acute on chronic diastolic congestive heart failure, NYHA class 4 Current Visit: No Status: Acute Code(s): I50.33 - ACUTE ON CHRONIC DIASTOLIC (CONGESTIVE) HEART FAILURE
[2022-05-28] MEDS ORDERED: Lubrifresh P.M. 3.5 gm Ointment OP SCH (22:00)
[2022-05-28 23:47] VITALS: PULSE 120
[2022-05-29] MEDS: Morphine PCA 1 MG/ML IV PRN (01:40)
--- NOTE | 2022-05-29 07:53 | PCM.DS ---
Discharge Summary Date of Admission: 05/28/22 14:08 Admitting Physician: TASIA CHRISTENSEN Primary Care Provider: TASIA CHRISTENSEN Allergies Allergies Penicillins Allergy (Severe, Verified 05/19/22 23:52) Anaphylactic Reaction Hospital Summary - Hospital Course Hospital Course: Chief Complaint Diagnosis TERMINAL WEAN, COMFORT CARE Allergies Allergy/AdvReac Type Severity Reaction Status Date / Time Penicillins Allergy Severe Anaphylactic Verified 05/19/22 23:52 Reaction Vital Signs (Last 24 hours) Temp Pulse Resp Pulse Ox 05/29/22 01:40 13 05/28/22 23:56 13 05/28/22 23:42 97.8 F 120 H 13 05/28/22 19:27 98.2 F 116 H 18 60 L Current Medications Discontinued Medications Generic Name Dose Route Start Last Admin Trade Name Freq PRN Reason Stop Dose Admin Artificial Tears 1 gm 05/28/22 22:00 05/28/22 22:59 Lanolin/Min Oil/Petrolat Wht 3.5 Gm Tube OP 06/20/22 21:59 1 gm BID VERNA Administration Lorazepam 40 mg/ Dextrose 100 mls @ 5 mls/hr 05/28/22 14:20 IV 06/27/22 14:19 .Q20H PRN SEDATION FOR VENT Protocol 2 MG/HR Sodium Chloride 1,000 mls @ 75 mls/hr 05/28/22 14:20 Sodium Chloride 0.9% 1000 Ml IV 06/19/22 03:17 .[id number] VERNA Fentanyl Citrate 1,500 mcg/ 150 mls @ 6.7 mls/hr 05/28/22 14:20 Sodium Chloride IV 06/21/22 08:59 .[id number] PRN PAIN Protocol 1 MCG/KG/HR Amiodarone HCl 720 mg/ 400.4 mls @ 17 mls/hr 05/28/22 14:20 Dextrose IV 06/26/22 09:59 .[id number] VERNA Lorazepam 40 mg/ Dextrose 100 mls @ 5 mls/hr 05/28/22 16:00 05/28/22 16:15 IV 06/27/22 15:59 2 mg/hr .Q20H VERNA 5 mls/hr Administration Protocol 2 MG/HR Sodium Chloride 1,000 mls @ 30 mls/hr 05/28/22 16:00 Sodium Chloride 0.9% 1000 Ml IV 06/27/22 15:59 .Q24H VERNA Lorazepam 2 mg 05/28/22 14:22 05/28/22 15:30 Lorazepam 2 Mg/1 Ml 2 Mg Vial IV 06/27/22 14:21 2 mg PRN PRN Administration ANXIETY/AGITATION Morphine Sulfate 2 mg 05/28/22 14:21 05/28/22 15:30 Morphine Sulfate 2 Mg/Ml Inj IV 06/02/22 14:20 2 mg PRN PRN Administration PAIN Morphine Sulfate 30 mg 05/28/22 15:37 05/29/22 01:40 Morphine Sulfate 1 Mg/Ml Operators Teacher 30 Ml Vial IV 06/02/22 15:36 30 mg PRN PRN Administration PAIN Intake & Output (Last 24 hours) 05/26/22 05/27/22 05/28/22 05/29/22 11:59 11:59 11:59 11:59 Intake Total 930 Output Total 950 1600 Balance -950 -670 Weight 72.4 kg Orders (Last 24 hours) Category Date Time Status Bedrest ROUTINE Activity 05/28/22 14:20 Completed Admit as Inpatient ROUTINE Care 05/28/22 14:20 Completed Catheter Care Record Q6H Care 05/28/22 14:20 Completed Miscellaneous Nursing Order ROUTINE Care 05/28/22 14:20 Completed NPO (ED) STAT Care 05/28/22 14:20 Completed Oral Care Q2H Care 05/28/22 14:20 Completed Infection Control Consult ROUTINE Cons 05/28/22 17:14 Completed Infection Control Consult ROUTINE Cons 05/28/22 17:25 Completed NPO Diet 05/28/22 14:20 Completed Discharge Routine Discharge 05/29/22 Ordered D5w 100 ml [D5w 100ML Mini Bag 100 ML] 80 ml Med 05/28/22 14:20 Discontinued Lorazepam 20 mg/10 ml Mdv [Ativan 20 MG/10 ML MDV ] 40 mg IV 2 mg/hr D5w 100 ml [D5w 100ML Mini Bag 100 ML] 80 ml Med 05/28/22 16:00 Discontinued Lorazepam 20 mg/10 ml Mdv [Ativan 20 MG/10 ML MDV ] 40 mg IV 2 mg/hr D5w 500 ml [Dextrose 5%/Water IV Soln. 500 ML] 386 ml Med 05/28/22 14:20 Discontinued Amiodarone HCl 150 mg/3 ml [Cordarone 150 MG/3 ML Injection] 720 mg IV 17 mls/hr Lanolin/Min Oil/Petrolat Wht [Lubrifresh P.M. 3.5 gm Med 05/28/22 22:00 Discontinued Ointment] 1 gm OP BID Lorazepam 2 mg/1 ml [Ativan 2 MG/1 ML VIAL] Med 05/28/22 14:22 Discontinued 2 mg IV PRN PRN Morphine Sulfate * [Morphine CHEMIST ENZYMES 1 MG/ML] Med 05/28/22 15:37 Discontinued 30 mg IV PRN PRN Morphine Sulfate 2 mg Inj Med 05/28/22 14:21 Discontinued 2 mg IV PRN PRN NaCl 0.9% 1000 ml [Sodium Chloride 0.9% 1000 ML] 1,000 Med 05/28/22 16:00 Discontinued ml IV 30 mls/hr NaCl 0.9% 1000 ml [Sodium Chloride 0.9% 1000 ML] 1,000 Med 05/28/22 14:20 Discontinued ml IV 75 mls/hr NaCl 0.9% 150 ml [Sodium Chloride 0.9% 150 ML] 120 ml Med 05/28/22 14:20 Dis continued Fentanyl Citrate/Pf [Fentanyl 500 Mcg/10 ml Vial] 1,500 mcg IV 1 mcg/kg/hr Patient Care Notes (Last 24 hours) 05/29/22 04:39 Nursing Note by Eulalio Griggs Body released to [facility] at this time. Initialized on 05/29/22 04:39 - END OF NOTE 05/29/22 03:46 Nursing Note by Eulalio Griggs 0300 [facility] nurse Joyce at bs. Per Joyce, she notified pts madelyn Abrams and helen Chitra of time of . Per Chitra, she will notify that pt . Placed ice packs on pts eyes, awaiting IOPO to notify family to see if they wish to donate. Initialized on 05/29/22 03:46 - END OF NOTE 05/29/22 02:25 Nursing Note by Miladis Ng IOP[facility] was notified of time of and spoke with Kellie and she stated pt is a candidate for tissue and cornea donation. Do not release body until family has been notified Initialized on 05/29/22 02:25 - END OF NOTE 05/29/22 02:23 Nursing Note by Eulalio Griggs [id number] No apical pulse noted via auscultation, no femoral pulse noted via doppler confirmed by 2 RNs, pt was without pulse, bp, respirations or no other signs of life. [facility] hospice nurse Joyce notified at this time. Post mortem care provided at this time. Initialized on 05/29/22 02:23 - END OF NOTE 05/29/22 00:02 Nursing Note by Eulalio Griggs Family and friend left the bedside at this time. Pt helen Buenrostro took pts personal belongings at this time. Initialized on 05/29/22 00:02 - END OF NOTE 05/28/22 22:47 Nursing Note by Eulalio Griggs [facility] 1900 received bs report from previous nurse Joaquin. Per Joaquin, when the pt , call hospice and hospice will call to notify pts son. Per Joaquin, pts son (Jairo Cotton [phone]) would like to be notified first and he would contact the rest of the family. 2014 pts helen Buenrostro and her friend at bs at this time. Surface [employer] updated Chitra on pts current condition. 2199 Chitra asked if she could take pts personal belongings 2214 called hospice for clarification of cassandra orosco at [facility], Chitra gave consent for hospice services and she was not going to call the pts son at this hour to ask who pts belongings went to. 2229 Chitra stated that she was ultimately responsible for pt and he resided with her prior to admission and that she would take his personal belongings at this time. Chitra has taken possession of: one silver ring with gold triangles one [employer] cell phone with leather case one brown and black watch one brown hat one leather belt one pair of jeans one brown wallet with 3 bank cards, drivers license one pair of nike slides one shirt one pair socks 2 red lighters home meds, no narcotics noted one blue jacket one pack cigarettes Initialized on 05/28/22 22:47 - END OF NOTE 05/28/22 19:26 Nursing Note by Eulalio Griggs Received pt lying in bed on morphine and ativan drip. Pt appears to be comfortable at this time. Will cont to monitor. Initialized on 05/28/22 19:26 - END OF NOTE 05/28/22 16:54 Nursing Note by Nelson Perez Pt medications changed per [facility]. Pt is now on continuous Morphine gtt and continuous Ativan gtt. Fentanyl gtt discontinued. There was approx 102 ml of medication remaining in bag. This was measured and wasted in the controlled substances container ([employer] drug disposal) by this nurse and witnessed by A Juliet RN. Addendum entered by Nelson Perez 05/28/22 17:00: Unable to waste fentanyl in Pyxis or MAR D/T pt status change to GIP and a new medical record number. Initialized on 05/28/22 16:54 - END OF NOTE 05/28/22 15:11 Nursing Note by Ladonna Chung [facility] notified at 1406 that family wished to discontinue life support and wants no resuscitative measures at this time. [facility] reports that patient is not a candidate for donation and would like to be notified of cardiac time of . Initialized on 05/28/22 15:11 - END OF NOTE - Vitals & Intake/Output Vital Signs: Vital Signs Temperature 97.8 F 05/28/22 23:42 Pulse Rate 120 H 05/28/22 23:42 Respiratory Rate 13 05/29/22 01:40 Blood Pressure O2 Sat by Pulse Oximetry 60 L 05/28/22 19:27 Intake & Output: Intake & Output 05/26/22 05/27/22 05/28/22 05/29/22 11:59 11:59 11:59 11:59 Intake Total 930 Output Total 950 1600 Balance -950 -670 Weight 72.4 kg Final Diagnosis/Problem List - Final Discharge Diagnosis/Problem (1) Hospice care patient Status: Acute Code(s): Z51.5 - ENCOUNTER FOR PALLIATIVE CARE (2) Acute and chronic respiratory failure with hypoxia Status: Resolved Code(s): J96.21 - ACUTE AND CHRONIC RESPIRATORY FAILURE WITH HYPOXIA (3) Acute on chronic diastolic congestive heart failure, NYHA class 4 Status: Resolved Code(s): I50.33 - ACUTE ON CHRONIC DIASTOLIC (CONGESTIVE) HEART FAILURE - Discharge Discharge Date: 05/29/22 Disposition: Condition: Prescriptions: No Action Albuterol Common Canister [Ventolin Common Canister] 1 puff IH Q4-6HPRN PRN PRN Reason: Shortness Of Breath/Wheezing Apixaban [Eliquis 5 mg Tablet] 5 mg PO BID #30 tablet Metoprolol Tartrate 50 mg [Lopressor 50 MG] 50 mg PO DAILY Docusate Sodium [Colace] 100 mg PO DAILY PRN PRN PRN Reason: Constipation Furosemide 40 mg [Lasix 40 MG] 40 mg PO DAILY #30 tablet Hydroxyzine HCl 25 mg [Atarax 25 mg] 25 mg PO TID #30 Albuterol/Ipratropium 3ml Neb* [DUONEB 0.5-3 MG/3 ml Neb] 3 ml IH QIDRT #30 packet Albuterol 2.5 mg/3 ml Neb [Proventil 2.5 mg/3 ml Neb] 2.5 mg IH Q4H PRN PRN #30 packet PRN Reason: Shortness Of Breath/Wheezing Amiodarone HCl 200 mg PO DAILY Follow up with: TASIA CHRISTENSEN MD [Primary Care Provider] -
== END 2022-05-29 01:28 | disposition expired | DRG 951 ==
LOC: ICU 14:08
PROVIDERS: ADMIT General Practice; ATTEND General Practice
DX: Z51.5 Encounter for palliative care (principal); J96.21 Acute and chronic respiratory failure with hypoxia; I50.33 Acute on chronic diastolic (congestive) heart failure; I11.0 Hypertensive heart disease with heart failure; I25.10 Atherosclerotic heart disease of native coronary artery without angina pectoris; I48.91 Unspecified atrial fibrillation; K74.60 Unspecified cirrhosis of liver; Z79.899 Other long term (current) drug therapy; Z20.828 Contact with and (suspected) exposure to other viral communicable diseases; Z79.01 Long term (current) use of anticoagulants; Z72.0 Tobacco use
CPT/HCPCS: J2060; J2270